=== PATIENT | female | born 1945 | race Caucasian/White ===

== ENCOUNTER 2018-02-12 23:54 | Inpatient (IN) | payer MEDICARE ==
[~2018-02-12] VITALS: Ht 165.1 cm; Wt 87.1 kg
[~2018-02-12 23:54] MED LIST: AMLODIPINE BESYL5 MG PO; AZITHROMYCIN250 MG PO; AZULFIDINE500 M1 PO; BENAZEPRIL HCL10 MG PO; BENAZEPRIL PO; CEFDINIR300 MG PO; CEFTIN250 MG PO; ELIQUIS PO; LORATADINE10 MG PO; MELOXICAM7.5 MG PO; NAPROXEN500 MG; PRAVASTATIN PO; PREDNISONE10 MG PO; PREDNISONE20 MG PO; SINGULAIR10 MG PO; ULTRAM50 MG; WARFARIN SODIU2.5 MG PO; WARFARIN SODIUM5 MG PO
[2018-02-13] VITALS (15 sets, daily range): BP systolic 118–160; BP diastolic 45–73
[2018-02-13 00:57] LABS: BASOPHILS # (AUTO) 0.1 (0.0-0.1); BASOPHILS % 0.4 % (0.0-1.0); HEMATOCRIT 42.5 % (34.2-44.1); HEMOGLOBIN 13.7 g/dL (12.0-16.0); LYMPHOCYTES # (AUTO) 1.5 (1.0-3.2); LYMPHOCYTES % 4.7 % (18.0-39.1); MEAN CORPUSCULAR HEMOGLOBIN 31.5 pg (28-32); MEAN CORPUSCULAR HGB CONC 32.2 g/dL (31-35); MEAN CORPUSCULAR VOLUME 97.7 fL (81-99); MONOCYTES # (AUTO) 2.4 (0.2-0.8); MONOCYTES % 7.5 % (4.4-11.3); NEUTROPHILS # (AUTO) 27.9 (2.1-6.9); NEUTROPHILS % 86.4 % (38.7-80.0); PLATELET COUNT 410 x10e3/uL (140-360); RED BLOOD COUNT 4.35 x10e6/uL (3.6-5.1); RED CELL DISTRIBUTION WIDTH 14.1 % (11.7-14.4)
[2018-02-13 01:10] LABS: INR 1.74; PROTHROMBIN TIME 19.1 seconds (11.9-14.5)
[2018-02-13 01:11] LABS: PARTIAL THROMBOPLASTIN TIME 45.3 seconds (23.8-35.5)
--- NOTE | 2018-02-13 01:12 | Diagnostic Imaging Report ---
EXAM: CHEST SINGLE (PORTABLE), AP 1 view INDICATION: Shortness of breath, cough COMPARISON: PA and lateral view of the chest April 08, 2017 FINDINGS: LINES/TUBES: None LUNGS: Vascular congestion and bibasilar atelectasis. Biapical scarring. PLEURA: No effusions or pneumothorax. HEART AND MEDIASTINUM: The heart is within normal size limits. Prominence of the central pulmonary vessels. BONES AND SOFT TISSUES: No acute findings. IMPRESSION: Vascular congestion and bibasilar atelectasis. Signed by: Dr. Kristi May M.D. on 02/13/2018 1:08 AM
[2018-02-13 01:18] LABS: ALBUMIN 2.9 g/dL (3.5-5.0); ALBUMIN/GLOBULIN RATIO 0.6 (0.8-2.0); ANION GAP 15.6 mmol/L (8-16); CALCIUM 9.7 mg/dL (8.4-10.2); CREATININE, SERUM 1.12 mg/dL (0.57-1.11); MAGNESIUM 1.6 MG/DL (1.3-2.1); POTASSIUM 3.6 mmol/L (3.5-5.1)
[2018-02-13 02:12] LABS: CREATINE KINASE MB 2.9 ng/mL (0-5.0)
[2018-02-13] MEDS ORDERED: SODIUM CHLORIDE 0.9% 500ML 500 ML ONE (02:13)
[2018-02-13] MEDS ORDERED: SODIUM CHLORIDE 0.9% 500ML 500 ML IV ONE ×2 (02:15→07:00)
[2018-02-13 02:24] LABS: BAND NEUTROPHILS % (MANUAL) 2 %; LYMPHOCYTES % (MANUAL) 9 % (19-48); MONOCYTES % (MANUAL) 10 % (3.4-9.0); NEUTROPHILS % (MANUAL) 79 % (40-74); PLATELET ESTIMATE SLIGHTLY INCREASED; PLATELET MORPHOLOGY COMMENT FEW EDTA CLUMPING; RBC MORPHOLOGY COMMENT NORMAL
[2018-02-13] MEDS: DOXYCYCLINE 100MG/NS 100ML 100 ML IV SCH ×2 (02:45→13:27)
[2018-02-13] MEDS: LEVOFLOXACIN 500MG/D5W 100ML 100 ML IV SCH ×2 (02:45→08:35)
[2018-02-13 03:04] LABS: ABG PH 7.31 (7.31-7.41)
[2018-02-13] MEDS ORDERED: SODIUM CHLORIDE 0.9% 1000ML 1,000 ML IV SCH (03:14)
--- OUTSIDE RECORDS SUMMARY | 2018-02-13 03:24 | XMS REPORT ---
Author [facility] Address Unknown Phone Unavailable Care Team Providers Care Cotton Chopper Name Role Phone BJORN STEPHENSON Unavailable Unavailable Problems This patient has no known problems. Allergies, Adverse Reactions, Alerts This patient has no known allergies or adverse reactions. Medications This patient has no known medications. Results Test Description Test Time Test Comments Text Results Atomic Results Result Comments CHEST SINGLE (PORTABLE) [place] [address] Patient Name: JENNA VAUGHN MR #: [id number] : 1945 Age/Sex: 72/F Req #: [id number] Adm Physician: Ordered by: BJORN STEPHENSON MD Report #: [id number] Location: ER Room/Bed: Procedure: [id number] DX/CHEST SINGLE (PORTABLE) Exam Date: 02/13/18 Exam Time: 56 REPORT STATUS: Signed EXAM: CHEST SINGLE (PORTABLE), AP 1 view INDICATION: Shortness of breath, cough COMPARISON: PA and lateral view of the chest April 08, 2017 FINDINGS: LINES /TUBES: None LUNGS: Vascular congestion and bibasilar atelectasis. Biapical scarring. PLEURA: No effusions or pneumothorax. HEART AND MEDIASTINUM: The heart is within normal size limits. Prominence of the central pulmonary vessels. BONES AND SOFT TISSUES: No acute findings. IMPRESSION: Vascular congestion and bibasilar atelectasis. Signed by: Dr. Davon Harding M.D. on 02/13/2018 1:08 AM Dictated By: DAVON HARDING MD 7 Transcribed By: SPARKLE on 02/13/18107 COPY TO: BJORN STEPHENSON MD
[2018-02-13] MEDS ORDERED: ACETAMINOPHEN 1000 MG/100 ML IV PRN (05:15)
[2018-02-13] MEDS: METHYLPREDNISOLONE SOD SUCC 125 MG/2ML VIAL IV SCH ×2 (05:48→13:27)
[2018-02-13 05:52] LABS: BILIRUBIN,URINE NEGATIVE (NEGATIVE); KETONES,URINE NEGATIVE (NEGATIVE); LEUKOCYTE ESTERASE ,URINE NEGATIVE (NEGATIVE); NITRITE,URINE NEGATIVE (NEGATIVE); URINE UROBILINOGEN 1 mg/dL (0.2 - 1)
[2018-02-13 06:00] LABS: CLARITY,URINE SL CLOUDY (CLEAR); COLOR,URINE YELLOW (YELLOW); PROTEIN,URINE DIPSTICK 2+ (NEGATIVE)
[2018-02-13 06:12] LABS: AMORPHOUS SEDIMENT,URINE RARE (FEW)
[2018-02-13] MEDS: IPRATROPIUM BROMIDE 0.02% 2.5 ML NEB NEB SCH ×3 (07:00→19:15)
[2018-02-13] MEDS: ALBUTEROL SULF 0.083% NEB SOLN 3 ML NEB NEB SCH ×4 (07:00→19:15)
[2018-02-13 08:03] LABS: ABG PH 7.34 (7.31-7.41)
[2018-02-13 08:04] LABS: ABG HCO3 35 mmol/L (23-28); ABG PCO2 65 mmHg (41-51); ABG PO2 65 mmHg (80-105)
[2018-02-13 08:44] LABS: CREATINE KINASE MB 1.6 ng/mL (0-5.0)
[2018-02-13] MEDS ORDERED: FUROSEMIDE INJ 10 MG/ML 2 ML VIAL IV ONE (11:15)
[2018-02-13 11:29] LABS: BASOPHILS # (AUTO) 0.1 (0.0-0.1); BASOPHILS % 0.3 % (0.0-1.0); HEMATOCRIT 36.8 % (34.2-44.1); HEMOGLOBIN 12.1 g/dL (12.0-16.0); LYMPHOCYTES # (AUTO) 2.4 (1.0-3.2); LYMPHOCYTES % 8.3 % (18.0-39.1); MEAN CORPUSCULAR HEMOGLOBIN 31.9 pg (28-32); MEAN CORPUSCULAR HGB CONC 32.9 g/dL (31-35); MEAN CORPUSCULAR VOLUME 97.1 fL (81-99); MONOCYTES # (AUTO) 2.1 (0.2-0.8); MONOCYTES % 7.1 % (4.4-11.3); NEUTROPHILS # (AUTO) 24.4 (2.1-6.9); NEUTROPHILS % 83.8 % (38.7-80.0); PLATELET COUNT 374 x10e3/uL (140-360); RED BLOOD COUNT 3.79 x10e6/uL (3.6-5.1); RED CELL DISTRIBUTION WIDTH 14.1 % (11.7-14.4)
[2018-02-13] MEDS: CEFEPIME HCL 2 GM VIAL IV SCH (14:49)
--- NOTE | 2018-02-13 15:03 | Consultation ---
DATE OF CONSULTATION: February 13, 2018 INFECTIOUS DISEASE CONSULTATION LOCATION: In the emergency room of [facility]. REASON FOR CONSULTATION: To evaluate and assist in managing a patient with leukocytosis. Information is gathered from the current medical record. I interviewed the patient at the bedside. She is a 72-year-old woman with a history of hypertension. She has had a left total knee replacement in the past. She has had 3 previous back surgeries. Two weeks ago, she had another back surgery. She presented to the emergency room with complaints of increasing shortness of breath as well as cough productive sometimes of a yellowish sputum, sometimes greenish sputum. She is not sure whether she had fevers. She denies any nausea, vomiting or diarrhea. She has no genitourinary complaints. She is noted at presentation with a temperature of 100.5 degrees Fahrenheit, a pulse rate of 109, a respiratory rate of 22 and blood pressure 136/52. She had a CBC done which showed a white count of 32.3 thousand with 86% neutrophils. A repeat CBC showed a white count of 29.1 thousand. Her creatinine is found to be 1.1. She has had blood and urine cultures ordered. A chest x-ray is reported to have pulmonary vascular congestion. The patient reports that prior to her back surgery there was swelling of her left knee. An ultrasound had shown no deep venous thrombosis. She denies any history of treatment with steroids since her back surgery. She gives no history of a bone marrow abnormality. She has no diarrhea. She has never been told before that she had a persistent increased white count. Her medical history is as reported above. There is no report of kidney disease, liver disease, myocardial infarction or CVA. SOCIAL HISTORY: She smokes. She denies alcohol and other forms of recreational drug abuse. FAMILY HISTORY: Positive for hypertension. SHE HAS NO KNOWN ALLERGIES. She has been ordered to receive doxycycline and levofloxacin. The rest of her medications are per medication administration report. REVIEW OF SYSTEMS: The patient is alert. Her sensorium is clear. Currently on BiPAP. No acute respiratory distress. No complaint of headache or neck stiffness. No sore throat. No visual or auditory complaints. She has cough, sometimes with yellowish sputum, sometimes greenish or grayish sputum. No complaint of chest pain or abdominal pain. No nausea, vomiting or diarrhea. No frequency or dysuria. No pruritus or rash. There is pain in her back. She has not noticed any drainage from her back surgery site. PHYSICAL EXAMINATION GENERAL: She is an adult woman. She is alert, responsive, coherent. She appears ill but nontoxic. VITAL SIGNS: Maximum temperature was at presentation of 100.5 degrees Fahrenheit. She is hemodynamically stable. HEENT: There is no gross pallor, no obvious icterus, no oropharyngeal lesions. NECK: Supple. CHEST: Symmetric. LUNGS: Breath sounds are coarse in the lung cordero. HEART: Sounds are regular without a significant murmur. ABDOMEN: Full, soft. Between are present. There is a midline scar of previous surgeries. EXTREMITIES: There is mild pitting edema of the left lower extremity. No acute erythema of the extremities otherwise. BACK: Surgical incision site is clean and healing. There is no acute erythema or drainage. Her creatinine 1.1. Liver function tests unremarkable. Blood glucose 151. Her white count 29.1 to 32.3. Hemoglobin 12.1. Platelet count 374 to 410. Differential on the white count has been reported above. Cultures are pending. Chest x-ray is as reported above. Venous Doppler of the left lower extremity, report is not available. IMPRESSION: This 72-year-old woman had back surgery about 2 weeks ago. She has significant leukocytosis of unclear etiology. Differential diagnosis includes evolving surgical site infection. I would be concerned about underlying abscess or hematoma. Other considerations in the differential diagnosis would include Clostridium difficile colitis, urinary tract infection and pneumonia. A bone marrow abnormality seems unlikely. The patient states she has not been on any steroids since her back surgery until she arrived in the hospital and was started on Solu-Medrol. I suggest we change her antibiotic treatment to a combination of vancomycin and cefepime. Will get a CT scan of the lumbosacral spine for further evaluation. Follow up on blood and urine cultures. Check her stool for C. diff. Send sputum for Gram stain and culture and monitor clinical response to treatment. I have discussed the findings and concerns and treatment with the patient at the bedside. I will discuss the patient with the primary physician, whom I thank for the consult and opportunity to participate in the patient's care. I have discussed the patient with the emergency room staff. TOTAL CARE TIME: 40 minutes. Job#: [id number] EV
--- NOTE | 2018-02-13 15:30 | Consultation ---
DATE OF CONSULTATION: February 13, 2018 ADDENDUM: The patient also has a history of COPD. In light of the increasing cough with productive sputum, pneumonia should be considered in the differential diagnosis of her leukocytosis. She did present with signs and symptoms consistent with sepsis including a white count of 32.3 thousand, a temperature of 100.5, a pulse rate greater than 100, and respiratory rate greater than 20. The constellation of these findings is consistent with sepsis. Differential diagnosis has been outlined above. Plans for evaluation and treatment are as outlined above. Again, I have discussed all of this with the patient at the bedside. I have discussed with the emergency room staff. I will discuss with the primary physician. Job#: [id number] TANMAY
[2018-02-13] MEDS ORDERED: VANCOMYCIN 1GM/NS 250 ML 250 ML ONE (16:15)
[2018-02-13] MEDS: VANCOMYCIN HCL 1.25 GM in SODIUM CHLORIDE 0.9% 250ML 250 ML IV SCH (16:25)
--- NOTE | 2018-02-13 16:43 | History and Physical ---
CHIEF COMPLAINT: Dyspnea and leukocytosis. HISTORY OF PRESENT ILLNESS: The patient is a 72-year-old woman. She has a history of chronic obstructive pulmonary disease and pulmonary emboli. She had a pulmonary embolism at [facility] in 2013 and a DVT at [facility] later that year. She has been on warfarin on a chronic basis. She recently went for lumbar surgery with Dr. Troy Finley in [place]. She had a lumbar laminectomy and apparently did well. She was switched to Eliquis during the perioperative period. She went back to see Dr. Finley 2 days ago and had no problems. Her raghav were removed. Last night, she started having congestion and difficulty breathing. She also noticed a temperature. She came to the emergency department and was found to have an elevated white blood cell count along with some congestion. She was started on antibiotics and steroids. She had some improvement, but still reports some dyspnea. PAST SURGICAL HISTORY 1. Status post right knee replacement. 2. Status post back surgery in 2007. 3. Repeat lumbar laminectomy 2 weeks ago in [place]. SOCIAL HISTORY: The patient is a smoker. She is not an active drinker. FAMILY HISTORY: Significant for strokes. Her father also had cancer. REVIEW OF SYSTEMS: She did note some fevers at home. She did not complain of headache or neck pain. She did have some congestion and cough. She did not have any chest pain. She does note some worsening dyspnea. She has no abdominal pain. She does not complain of any leg swelling or pain. PHYSICAL EXAMINATION VITALS: The patient is afebrile. The blood pressure is 139/60. Saturation is 96%. Pulse is 89. HEENT: No facial swelling or erythema. The nasal mucosa is normal. The oropharynx is normal. LYMPHATIC: No submandibular, cervical or supraclavicular adenopathy. NECK: No JVD or thyromegaly. There is no nuchal rigidity. CARDIAC: Regular rate and rhythm with a normal S1 and S2. There are no murmurs or rubs. LUNGS: Auscultation of the lungs reveals rhonchorous breath sounds bilaterally. There is no wheezing. ABDOMEN: Soft and nontender. There is no rebound or guarding. EXTREMITIES: No leg edema or calf tenderness. There is no cyanosis or clubbing. SKIN: No rashes. NEUROLOGIC: No focal abnormalities. Chest x-ray shows some atelectasis and cephalization suggestive of heart failure. LABORATORY DATA: White blood cell count is 29, hemoglobin 12.1, platelet count 374. The [id number] ratio is 16:1.1. IMPRESSION 1. Chronic obstructive pulmonary disease with acute exacerbation. 2. History of prior pulmonary embolism. 3. Leukocytosis and recent back surgery. PLAN 1. Infectious disease has seen the patient and ordered a CT scan of the back. We are awaiting these results. 2. The patient will need a V/Q scan to rule out recurrent pulmonary embolism. We cannot order another contrast study with her current renal function. 3. Depending on the results of the V/Q scan and the CT scan, we may need to start heparin. 4. Continue current antibiotics. 5. Solu-Medrol at 1 mg per kg twice daily. 6. Bronchodilators. Job#: [id number]
--- NOTE | 2018-02-13 16:44 | Consultation ---
Job#: [id number] TANMAY ARAIZA
[2018-02-13] MEDS ORDERED: WARFARIN SOD 5 MG TAB PO SCH (17:00)
--- NOTE | 2018-02-13 17:13 | Diagnostic Imaging Report ---
Exam: Lumbar spine CT without IV contrast History: Leukocytosis, rule out abscess or hematoma two weeks Comparison studies: None Technique: Axial images were obtained through the lumbar spine. Coronal and sagittal images reconstructed from the axial data. Intravenous contrast: None Findings: Number of non-rib bearing vertebral bodies: 5 Alignment: Normal lumbar lordosis. Lumbar curvature convex to the left with apex at L2-L3. Approximately 2 mm degenerative retrolisthesis of L2 on L3. Soft tissues and paraspinal muscles: There are postsurgical changes in the dorsal lumbar soft tissues from L2-L3 through L5-S1 with ill-defined soft tissue and fluid within within the dorsal left paramedian soft tissues along the operative bed with small foci of gas. No organized rim-enhancing fluid collection though evaluation is somewhat limited by CT. Nonspecific reactive changes extend along the epidural space into the left subarticular recess ease and foramina on the left at L4-L5 and L5-S1. Sacroiliac joints: Moderate degenerative changes along the joints inferiorly with periarticular sclerosis. Vertebrae: No fractures, infection or neoplasm. Postsurgical changes: There are decompressive hemilaminectomies on the left from L2-L3 to L5-S1. See soft tissues, as above Degenerative changes: L1-L2: Moderately degenerated disc on the right along the concavity of curvature. Disc bulge with right foraminal disc osteophyte complex and facet arthrosis with moderate right foraminal stenosis and mild left foraminal stenosis. No significant canal stenosis L2-L3: Severely degenerated disc on the right along the concavity of curvature. Minimal retrolisthesis of L2 on L3 with associated disc osteophyte complex asymmetric to the right and facet arthrosis with moderate bilateral foraminal stenosis. No significant canal stenosis. L3-L4: Mildly degenerated disc. Minimal retrolisthesis of L3 on L4 with associated uncovered disc/disc bulge and bilateral facet arthrosis with moderate bilateral foraminal stenosis. Canal is decompressed by left pneumonectomy laminectomy. L4-L5: Moderately degenerated disc on the left due to curvature. Disc bulge and facet arthrosis result in severe left and mild right foraminal stenosis. Canal is been surgically decompressed by left pneumonectomy laminectomy. L5-S1: No abnormalities. Disc bulge with right foraminal disc osteophyte complex and facet arthrosis with moderate left and mild right foraminal stenosis. Canal has been decompressed by laminotomy. Incidental findings: Atelectasis or consolidation at the left lung base. Bilateral adrenal thickening. 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 IMPRESSION: 1. Postsurgical changes with hemilaminectomies on the left from L2-L3 through L5-S1. Nonspecific fluid and reactive changes in the left paramedian dorsal soft tissues along the operative site. Cannot adequately differentiate phlegmon from reactive postoperative changes and seroma in the context of recent surgery. No definite organized rim-enhancing fluid collection/abscess identified by CT. 2. Levocurvature with apex at L2. 3. Degenerative changes with multilevel disc degeneration, facet arthrosis and varying degrees of mild to severe foraminal stenosis as described. 4. 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 Recommend renal/pelvic ultrasound to further evaluate if not recently performed. 5. Partially imaged atelectasis or consolidation at the left lung base. Signed by: Dr. Heath Ford M.D. on 02/13/2018 5:10 PM
--- NOTE | 2018-02-13 18:04 | Diagnostic Imaging Report ---
PROCEDURE:US RETROPERITONEAL ( KIDNEY ). COMPARISON:Patients [facility], CT, CT CHEST W, 04/07/2017, 9:22. INDICATIONS:DILATED PELVIC KIDNEY TECHNIQUE: Silvestre-scale and color sonographic images of the bilateral kidneys and bladder where obtained in transverse and longitudinal planes. FINDINGS: Exam limited by patient's large body habitus. RIGHT KIDNEY: 8.3 cm, cortex 2.2 cm Cysts: None Solid masses: None Stones: None Hydronephrosis: None Echogenicity: Normal LEFT KIDNEY: Not visualized. No pelvic kidneys are identified. Bladder: Mostly decompressed with Smith catheter in place. CONCLUSION: 1. Right kidney is smaller than normal. Normal cortical echogenicity. No hydronephrosis, stones, or solid masses. 2. The left kidney is not visualized. Jethro Ribeiro M.D. Dictated by: Jethro Ribeiro M.D. on 02/13/2018 at 18:04 Electronically approved by: Jethro Ribeiro M.D. on 02/13/2018 at 18:04
[2018-02-13 19:06] LABS: CREATINE KINASE MB 1.7 ng/mL (0-5.0)
[2018-02-13] MEDS ORDERED: IOPAMIDOL 370 MG/ML 200 ML INFUS..BTL INJ ONE (20:04)
[2018-02-13] MEDS ORDERED: SODIUM CHLORIDE 0.9% 50ML 50 ML ONE (20:04)
[2018-02-13] MEDS: TRAMADOL HCL 50 MG TAB PO PRN (20:27)
[2018-02-13] MEDS: PRAVASTATIN 20 MG TAB PO SCH ×2 (21:00→21:23)
[2018-02-13] MEDS ORDERED: METHYLPREDNISOLONE SOD SUCC 125 MG/2ML VIAL IV SCH (21:00)
--- NOTE | 2018-02-13 21:37 | Diagnostic Imaging Report ---
EXAM: VENTILATION PERFUSION LUNG SCAN INDICATION: 72 F in ICU with COPD exacerbation; history of previous PE. Back surgery 2 weeks ago. COMPARISON: Chest radiograph 02/13/2018 DISCUSSION: Xenon-133 gas 17 mCi was administered via inhalation. Dynamic images of the lungs in the posterior projection were obtained through single breath and washout phases. Distribution of tracer activity is irregular throughout the lungs. Ventilation is markedly decreased in the LLL relatively to the other lobes. Washout is diffusely delayed with air trapping in the right lung base. Perfusion images of the lungs in multiple projections were obtained following intravenous administration of 6 mCi of Tc-99m MAA. Distribution of tracer is mildly irregular throughout the lungs. Some soft tissue attenuation effects are present on the lateral images, possible related to breast tissue. There are no segmental perfusion defects of any size. The contours of the lungs are well demarcated. The cardiac silhouette is unremarkable. IMPRESSION: 1. Scan findings represent a LOW probability for acute pulmonary embolic disease based on the PIOPED II criteria. 2. Scan findings are compatible with diffuse parenchymal and/or obstructive lung disease. Suspect pulmonary edema with obstructive lung disease. 3. Decreased ventilation in the LLL without associated decrease in perfusion suggests that some recent onset airway obstruction is present. Defect in ventilation in the LLL does improve with equilibrium so is not complete obstruction. Signed by: Dr. Marlys Oakley M.D. on 02/13/2018 9:33 PM
[2018-02-14] VITALS (36 sets, daily range): BP systolic 100–166; BP diastolic 48–84
[2018-02-14] MEDS: CEFEPIME HCL 2 GM VIAL IV SCH ×2 (03:10→14:39)
[2018-02-14] MEDS: ALBUTEROL SULF 0.083% NEB SOLN 3 ML NEB NEB SCH ×6 (03:30→19:15)
[2018-02-14 06:02] LABS: BASOPHILS # (AUTO) 0.1 (0.0-0.1); BASOPHILS % 0.3 % (0.0-1.0); HEMATOCRIT 43.7 % (34.2-44.1); HEMOGLOBIN 14.2 g/dL (12.0-16.0); LYMPHOCYTES # (AUTO) 1.4 (1.0-3.2); LYMPHOCYTES % 7.9 % (18.0-39.1); MEAN CORPUSCULAR HEMOGLOBIN 31.3 pg (28-32); MEAN CORPUSCULAR HGB CONC 32.5 g/dL (31-35); MEAN CORPUSCULAR VOLUME 96.5 fL (81-99); MONOCYTES # (AUTO) 0.3 (0.2-0.8); MONOCYTES % 1.8 % (4.4-11.3); NEUTROPHILS # (AUTO) 15.8 (2.1-6.9); NEUTROPHILS % 89.4 % (38.7-80.0); PLATELET COUNT 424 x10e3/uL (140-360); RED BLOOD COUNT 4.53 x10e6/uL (3.6-5.1); RED CELL DISTRIBUTION WIDTH 14.1 % (11.7-14.4)
[2018-02-14 06:21] LABS: INR 2.58
--- NOTE | 2018-02-14 06:23 | Diagnostic Imaging Report ---
EXAM: CHEST SINGLE (PORTABLE), AP 1 view INDICATION: Pneumonia COMPARISON: AP view of the chest February 13, 2018 FINDINGS: LINES/TUBES: None LUNGS: Vascular calcification, bibasilar atelectasis and biapical scarring. PLEURA: No effusions or pneumothorax. HEART AND MEDIASTINUM: Stable appearance. BONES AND SOFT TISSUES: No acute findings. IMPRESSION: Increasing atelectasis in the left lung base, possible pneumonia. Signed by: Dr. Kristi May M.D. on 02/14/2018 6:20 AM
[2018-02-14 06:43] LABS: ALANINE AMINOTRANSFERASE 29 IU/L (0-55); ALBUMIN 2.5 g/dL (3.5-5.0); ALBUMIN/GLOBULIN RATIO 0.5 (0.8-2.0); ALKALINE PHOSPHATASE 175 IU/L (40-150); ANION GAP 14.9 mmol/L (8-16); BLOOD UREA NITROGEN 22 mg/dL (7-26); BUN/CREATININE RATIO 24 (6-25); CARBON DIOXIDE 32 mmol/L (22-29); CHLORIDE 98 mmol/L (98-107); EST GLOMERULAR FILTRATION RATE > 60 ML/MIN (60-); GLUCOSE 151 mg/dL (74-118); POTASSIUM 3.9 mmol/L (3.5-5.1); SODIUM 141 mmol/L (136-145)
[2018-02-14] MEDS: IPRATROPIUM BROMIDE 0.02% 2.5 ML NEB NEB SCH ×4 (07:36→19:15)
[2018-02-14] MEDS ORDERED: PRAVASTATIN 20 MG PO SCH (09:00)
[2018-02-14] MEDS ORDERED: WARFARIN SOD 2.5 MG TAB PO SCH (09:00)
[2018-02-14] MEDS ORDERED: METHYLPREDNISOLONE SOD SUCC 125 MG/2ML VIAL IV SCH (09:00)
[2018-02-14] MEDS: METHYLPREDNISOLONE SOD SUCC 40 MG/ML VIAL IV SCH ×2 (09:00→21:44)
[2018-02-14] MEDS: VANCOMYCIN HCL 1.25 GM in SODIUM CHLORIDE 0.9% 250ML 250 ML IV SCH (14:30)
[2018-02-14] MEDS ORDERED: SODIUM CHLORIDE 0.9% 250ML 250 ML ONE (15:32)
[2018-02-14] MEDS ORDERED: WARFARIN SOD 5 MG TAB PO SCH (17:00)
[2018-02-14] MEDS: WARFARIN SOD 3 MG TAB PO SCH (17:00)
[2018-02-14] MEDS: ONDANSETRON HCL INJ 2 MG/ML VIAL IV PRN (20:23)
[2018-02-14] MEDS: SIMVASTATIN 20 MG TAB PO SCH (21:00)
[2018-02-15] VITALS (25 sets, daily range): BP systolic 120–171; BP diastolic 59–94
[2018-02-15] MEDS: ALBUTEROL SULF 0.083% NEB SOLN 3 ML NEB NEB SCH ×7 (03:00→23:00)
[2018-02-15] MEDS: CEFEPIME HCL 2 GM VIAL IV SCH ×2 (03:25→15:04)
[2018-02-15] MEDS: TRAMADOL HCL 50 MG TAB PO PRN (04:15)
[2018-02-15] MEDS: ONDANSETRON HCL INJ 2 MG/ML VIAL IV PRN (04:15)
[2018-02-15 06:08] LABS: BASOPHILS # (AUTO) 0.1 (0.0-0.1); BASOPHILS % 0.5 % (0.0-1.0); HEMATOCRIT 39.7 % (34.2-44.1); HEMOGLOBIN 13.3 g/dL (12.0-16.0); LYMPHOCYTES # (AUTO) 1.8 (1.0-3.2); MEAN CORPUSCULAR HEMOGLOBIN 31.2 pg (28-32); MEAN CORPUSCULAR HGB CONC 33.5 g/dL (31-35); MEAN CORPUSCULAR VOLUME 93.2 fL (81-99); MONOCYTES # (AUTO) 0.9 (0.2-0.8); MONOCYTES % 4.8 % (4.4-11.3); NEUTROPHILS # (AUTO) 14.7 (2.1-6.9); NEUTROPHILS % 83.4 % (38.7-80.0); PLATELET COUNT 516 x10e3/uL (140-360); RED BLOOD COUNT 4.26 x10e6/uL (3.6-5.1); RED CELL DISTRIBUTION WIDTH 14.1 % (11.7-14.4)
[2018-02-15 06:18] LABS: INR 2.62; PROTHROMBIN TIME 26.3 seconds (11.9-14.5)
[2018-02-15] MEDS: IPRATROPIUM BROMIDE 0.02% 2.5 ML NEB NEB SCH ×4 (07:00→18:40)
[2018-02-15] MEDS: METHYLPREDNISOLONE SOD SUCC 40 MG/ML VIAL IV SCH ×2 (08:42→20:20)
[2018-02-15] MEDS ORDERED: VANCOMYCIN HCL 1.25 GM in SODIUM CHLORIDE 0.9% 250ML 300 ML IV SCH (11:30)
[2018-02-15] MEDS ORDERED: SODIUM CHLORIDE 0.9% 250ML 250 ML ONE (14:19)
[2018-02-15] MEDS: VANCOMYCIN HCL 1.25 GM in SODIUM CHLORIDE 0.9% 250ML 300 ML IV SCH (14:50)
--- NOTE | 2018-02-15 15:53 | Progress Note ---
DATE: February 14, 2018 SUBJECTIVE: The patient is resting comfortably on oxygen by nasal cannula. No respiratory distress currently. She coughs intermittently. No dyspnea at rest. No chest pain. No nausea. No abdominal pain. No diarrhea. No genitourinary complaints. OBJECTIVE VITAL SIGNS: In the previous 24 hours, her maximum temperature was up to 100.5 degrees Fahrenheit. She is hemodynamically stable. HEENT: There is no gross pallor. No obvious icterus. No oropharyngeal lesions. NECK: Supple. CHEST: Symmetric. Breath sounds are coarse in the lung cordero. HEART: Sounds are regular without any murmurs. ABDOMEN: Soft. Bowel sounds are present. EXTREMITIES: No acute erythema in all 4 extremities. BACK: Her back incision site is fairly clean. LABORATORY DATA: Her white count is down to 17.7. Her creatinine is down to 0.9. There are no significant positive culture reports. IMPRESSION AND RECOMMENDATIONS: She is on treatment for sepsis with probable chronic obstructive pulmonary disease exacerbation and pneumonia. I am concerned about evolving infection at her surgical site in the back. Patient had recent laminectomies. I suggest continued current antimicrobial therapy. Follow up on her cultures. Continue to monitor clinical response to treatment. Job#: [id number] JENNIFER
--- NOTE | 2018-02-15 16:05 | Progress Note ---
DATE: February 15, 2018 SUBJECTIVE: The patient is alert and responsive. She states she vomited 8 times in the previous 24 hours. Currently, she is in no acute distress. She has no complaint of nausea or diarrhea. No abdominal pain. She coughs occasionally. No dyspnea at rest. No other systemic complaints reported. OBJECTIVE VITAL SIGNS: In the past 24 hours, temperatures have ranged from 98.1 to 99.3 degrees Fahrenheit. She is hemodynamically stable. HEENT: There is no pallor. No icterus. No oropharyngeal lesions. NECK: Supple. CHEST: Symmetric. Breath sounds are coarse in the lung cordero. HEART: Sounds are regular without any murmurs. ABDOMEN: Full, soft, and nontender with normal bowel sounds. EXTREMITIES: No acute erythema in all 4 extremities. BACK: Her back wound is without drainage or worsening erythema. LABORATORY DATA: Her white count dropped from 32.3 to 17.6. Her creatinine is down to 0.9. Sputum culture from February 15 is pending. Urine culture is negative from February 13. Blood cultures are negative from February 13. DIAGNOSTIC DATA: CT scan of the lumbar spine reports postsurgical changes with hemilaminectomies on the left from L2-L3 and L5-S1. There are no specific fluid and reactive changes in the left paramedian, dorsal soft tissues along the operative site. Difficult to differentiate phlegmon from reactive postoperative changes and seroma. A severely hydronephrotic pelvic kidney with cortical thinning. There is partially images atelectasis or consolidation at the left lung base. IMPRESSION AND RECOMMENDATIONS: She is on treatment for sepsis with probable pneumonia and chronic obstructive pulmonary disease exacerbation. Difficult to tell whether she has a seroma or abscess at the site of recent laminectomy. Her current leukocytosis may be in part due to steroid therapy. I suggest continued current antimicrobial therapy. Monitor temperature, CBC, and renal function. Continue to monitor clinical response to treatment. Job#: [id number] JENNIFER
[2018-02-15] MEDS: FAMOTIDINE 20 MG TAB PO SCH (16:30)
[2018-02-15] MEDS: COLLAGENASE OINTMENT 30 GM TUBE TP SCH (18:17)
[2018-02-15] MEDS: WARFARIN SOD 3 MG TAB PO SCH (18:17)
[2018-02-15] MEDS: SIMVASTATIN 20 MG TAB PO SCH (20:20)
[2018-02-16] VITALS (7 sets, daily range): BP systolic 157–169; BP diastolic 68–72
[2018-02-16] MEDS: IPRATROPIUM BROMIDE 0.02% 2.5 ML NEB NEB SCH ×4 (01:00→19:30)
[2018-02-16] MEDS: CEFEPIME HCL 2 GM VIAL IV SCH ×2 (02:09→15:31)
[2018-02-16] MEDS: ALBUTEROL SULF 0.083% NEB SOLN 3 ML NEB NEB SCH ×6 (03:00→23:35)
[2018-02-16 07:26] LABS: BASOPHILS % 0.3 % (0.0-1.0); HEMATOCRIT 38.8 % (34.2-44.1); HEMOGLOBIN 12.8 g/dL (12.0-16.0); LYMPHOCYTES # (AUTO) 2.6 (1.0-3.2); LYMPHOCYTES % 17.1 % (18.0-39.1); MEAN CORPUSCULAR HEMOGLOBIN 30.7 pg (28-32); MONOCYTES % 6.8 % (4.4-11.3); NEUTROPHILS # (AUTO) 11.5 (2.1-6.9); NEUTROPHILS % 74.5 % (38.7-80.0); PLATELET COUNT 516 x10e3/uL (140-360); RED BLOOD COUNT 4.17 x10e6/uL (3.6-5.1); RED CELL DISTRIBUTION WIDTH 14.4 % (11.7-14.4)
[2018-02-16] MEDS: FAMOTIDINE 20 MG TAB PO SCH ×2 (07:30→16:30)
[2018-02-16 08:04] LABS: INR 3.18; PROTHROMBIN TIME 30.6 seconds (11.9-14.5)
[2018-02-16 08:06] LABS: ALANINE AMINOTRANSFERASE 34 IU/L (0-55); ALBUMIN 2.4 g/dL (3.5-5.0); ALBUMIN/GLOBULIN RATIO 0.6 (0.8-2.0); ALKALINE PHOSPHATASE 141 IU/L (40-150); ANION GAP 13.8 mmol/L (8-16); BLOOD UREA NITROGEN 28 mg/dL (7-26); BUN/CREATININE RATIO 31 (6-25); CALCIUM 9.1 mg/dL (8.4-10.2); CHLORIDE 93 mmol/L (98-107); CREATININE, SERUM 0.89 mg/dL (0.57-1.11); EST GLOMERULAR FILTRATION RATE > 60 ML/MIN (60-); GLUCOSE 122 mg/dL (74-118); POTASSIUM 3.8 mmol/L (3.5-5.1); SODIUM 145 mmol/L (136-145)
[2018-02-16 08:09] LABS: CARBON DIOXIDE 42 mmol/L (22-29)
[2018-02-16] MEDS: METHYLPREDNISOLONE SOD SUCC 40 MG/ML VIAL IV SCH ×2 (09:18→21:00)
[2018-02-16 10:14] LABS: BAND NEUTROPHILS % (MANUAL) 4 %; LYMPHOCYTES % (MANUAL) 22 % (19-48); MONOCYTES % (MANUAL) 5 % (3.4-9.0); NEUTROPHILS % (MANUAL) 69 % (40-74); PLATELET ESTIMATE MODERATELY INCREASED; PLATELET MORPHOLOGY COMMENT NORMAL; RBC MORPHOLOGY COMMENT NORMAL
[2018-02-16] MEDS ORDERED: ACETAZOLAMIDE 250 MG TAB PO ONE (11:00)
[2018-02-16] MEDS: COLLAGENASE OINTMENT 30 GM TUBE TP SCH (15:31)
[2018-02-16] MEDS: VANCOMYCIN HCL 1.25 GM in SODIUM CHLORIDE 0.9% 250ML 300 ML IV SCH (15:31)
--- NOTE | 2018-02-16 19:14 | Progress Note ---
DATE: February 16, 2018 SUBJECTIVE: The patient is in a bedside chair. She coughs intermittently, it sounds productive. No dyspnea at rest. No complaint of chest pain or back pain. No report of nausea, vomiting, or diarrhea. OBJECTIVE: VITAL SIGNS: In the past 24 hours, she had temperatures up to 99.3 degrees Fahrenheit. Her current temperature is 97 degrees. GENERAL: She is hemodynamically stable. HEENT: She has no pallor. No icterus. No oropharyngeal lesions. NECK: Supple. CHEST: Symmetric. Breath sounds are coarse in the lung cordero. HEART: Sounds are regular without any murmur. ABDOMEN: Soft. Bowel sounds are present. EXTREMITIES: There is no acute erythema in all 4 extremities. LABORATORY DATA: Her white count is down to 15.3. Her creatinine is 0.8. A vancomycin trough ordered, report is not yet available. There are no significant positive cultures. IMPRESSION: She is on treatment for sepsis, chronic obstructive pulmonary disease exacerbation with probable pneumonia. She had recent laminectomies. There is fluid around the surgical site according to the CT scan report. It is not clear whether this is a seroma, a hematoma or an abscess. I suggest continue current management. Monitor temperature, CBC, and renal function. Continue to monitor clinical response to treatment. Job#: [id number] MARQUES
[2018-02-16] MEDS: SIMVASTATIN 20 MG TAB PO SCH (21:00)
[2018-02-17] VITALS: BP 161/83
[2018-02-17] MEDS: CEFEPIME HCL 2 GM VIAL IV SCH (02:04)
[2018-02-17] MEDS: IPRATROPIUM BROMIDE 0.02% 2.5 ML NEB NEB SCH ×2 (02:10→07:00)
[2018-02-17] MEDS: ALBUTEROL SULF 0.083% NEB SOLN 3 ML NEB NEB SCH ×2 (02:10→07:00)
[2018-02-17 04:00] VITALS: BP 153/70
[2018-02-17] MEDS: FAMOTIDINE 20 MG TAB PO SCH ×2 (07:50→08:00)
[2018-02-17 07:52] LABS: BASOPHILS % 0.2 % (0.0-1.0); HEMATOCRIT 39.4 % (34.2-44.1); HEMOGLOBIN 12.8 g/dL (12.0-16.0); LYMPHOCYTES # (AUTO) 2.3 (1.0-3.2); LYMPHOCYTES % 16.1 % (18.0-39.1); MEAN CORPUSCULAR HEMOGLOBIN 30.9 pg (28-32); MEAN CORPUSCULAR HGB CONC 32.5 g/dL (31-35); MEAN CORPUSCULAR VOLUME 95.2 fL (81-99); MONOCYTES # (AUTO) 0.8 (0.2-0.8); MONOCYTES % 5.3 % (4.4-11.3); NEUTROPHILS # (AUTO) 11.1 (2.1-6.9); NEUTROPHILS % 77.1 % (38.7-80.0); PLATELET COUNT 495 x10e3/uL (140-360); RED BLOOD COUNT 4.14 x10e6/uL (3.6-5.1); RED CELL DISTRIBUTION WIDTH 14.5 % (11.7-14.4)
[2018-02-17 08:00] VITALS: BP 138/65
[2018-02-17 08:06] LABS: INR 2.42; PROTHROMBIN TIME 24.7 seconds (11.9-14.5)
[2018-02-17] MEDS: METHYLPREDNISOLONE SOD SUCC 40 MG/ML VIAL IV SCH (09:00)
== END 2018-02-17 10:18 | disposition home or self-care (01) | DRG 871 ==
LOC: ER 23:54 → ERHOLD 02-13 03:22 → ICU 02-13 14:51 → MED/SURG3 02-15 13:15
PROVIDERS: ADMIT Internal Medicine Critical Care Medicine; ATTEND Internal Medicine Critical Care Medicine
DX: A41.9 Sepsis, unspecified organism (principal); J18.9 Pneumonia, unspecified organism; J44.0 Chronic obstructive pulmonary disease with (acute) lower respiratory infection; J44.1 Chronic obstructive pulmonary disease with (acute) exacerbation; N13.30 Unspecified hydronephrosis; M96.842 Postprocedural seroma of a musculoskeletal structure following a musculoskeletal system procedure; Z86.711 Personal history of pulmonary embolism; F17.210 Nicotine dependence, cigarettes, uncomplicated; I10 Essential (primary) hypertension
CPT/HCPCS: 36415; 36600; 51700; 71045; 72132; 76770; 78582; 80053; 80202; 81001; 82550; 82553; 82805; 83605; 83735; 83880; 84484; 85025; 85610; 85730; 87040; 87070; 87086; 87205; 87400; 87449; 93005; 93306; 93971; 94640; 94660; 96367; 99284; A9540; A9558; J0692; J1940; J1956; J2405; J2920; J2930; J3370; J7030; J7040; J7050; Q9967

== ENCOUNTER 2018-06-29 22:15 | Observation (INO) | payer MEDICARE ==
[~2018-06-29] VITALS: Ht 165.1 cm; Wt 91.6 kg
[2018-06-29] MEDS ORDERED: ALBUTEROL SULF 0.083% NEB SOLN 3 ML NEB NEB STA (22:23)
[2018-06-29] MEDS ORDERED: IPRATROPIUM BROMIDE 0.02% 2.5 ML NEB NEB ONE (22:30)
[2018-06-29] MEDS ORDERED: METHYLPREDNISOLONE SOD SUCC 125 MG/2ML VIAL IV ONE (22:30)
[2018-06-29 22:43] LABS: BASOPHILS # (AUTO) 0.1 (0.0-0.1); BASOPHILS % 0.4 % (0.0-1.0); EOSINOPHILS # (AUTO) 0.1 (0.0-0.4); EOSINOPHILS % 0.8 % (0.0-6.0); HEMATOCRIT 42.7 % (34.2-44.1); HEMOGLOBIN 13.7 g/dL (12.0-16.0); LYMPHOCYTES # (AUTO) 2.8 (1.0-3.2); LYMPHOCYTES % 24.2 % (18.0-39.1); MEAN CORPUSCULAR HEMOGLOBIN 30.8 pg (28-32); MEAN CORPUSCULAR HGB CONC 32.1 g/dL (31-35); MONOCYTES % 8.8 % (4.4-11.3); NEUTROPHILS # (AUTO) 7.6 (2.1-6.9); NEUTROPHILS % 65.5 % (38.7-80.0); PLATELET COUNT 240 x10e3/uL (140-360); RED BLOOD COUNT 4.45 x10e6/uL (3.6-5.1); RED CELL DISTRIBUTION WIDTH 16.1 % (11.7-14.4)
[2018-06-29 22:53] LABS: INR 1.02; PROTHROMBIN TIME 12.6 seconds (11.9-14.5)
[2018-06-29 22:54] LABS: PARTIAL THROMBOPLASTIN TIME 28.9 seconds (23.8-35.5)
[2018-06-29 23:03] LABS: ALANINE AMINOTRANSFERASE 33 IU/L (0-55); ALBUMIN 3.3 g/dL (3.5-5.0); ALBUMIN/GLOBULIN RATIO 0.8 (0.8-2.0); ALKALINE PHOSPHATASE 115 IU/L (40-150); ANION GAP 13.7 mmol/L (8-16); BLOOD UREA NITROGEN 13 mg/dL (7-26); BUN/CREATININE RATIO 17 (6-25); CARBON DIOXIDE 31 mmol/L (22-29); CHLORIDE 99 mmol/L (98-107); CREATINE KINASE 99 IU/L (29-168); CREATININE, SERUM 0.77 mg/dL (0.57-1.11); EST GLOMERULAR FILTRATION RATE > 60 ML/MIN (60-); GLUCOSE 109 mg/dL (74-118); POTASSIUM 5.7 mmol/L (3.5-5.1); SODIUM 138 mmol/L (136-145)
--- NOTE | 2018-06-29 23:04 | Diagnostic Imaging Report ---
CHEST SINGLE (PORTABLE), 06/29/2018 10:23 PM Technique: CHEST SINGLE (PORTABLE) Comparison: 02/14/2018 Clinical history: Shortness of breath Findings: Limited single portable view of the chest. Stable cardiomediastinal silhouette with enlarged central pulmonary arteries. Hyperinflation with stable right apical pleural thickening. Blunting of the costophrenic angles and minimal bibasilar scarring/atelectasis. Impression: Emphysema without acute abnormality. Signed by: Dr Constanza Encinas MD on 06/29/2018 11:00 PM
[2018-06-30] VITALS (7 sets, daily range): BP systolic 125–171; BP diastolic 57–73
[2018-06-30] MEDS: AZITHROMYCIN 500MG/NS 250 ML 250 ML IV SCH (00:15)
[2018-06-30] MEDS: ALBUTEROL/IPRATROPIUM 3 ML NEB NEB SCH ×6 (02:20→23:00)
[2018-06-30] MEDS ORDERED: METHYLPREDNISOLONE SOD SUCC 40 MG/ML VIAL IV SCH (06:00)
[2018-06-30] MEDS ORDERED: TRAMADOL HCL 50 MG TAB PO PRN (08:00)
[2018-06-30] MEDS ORDERED: ZOLPIDEM TARTRATE 10 MG TAB PO PRN (08:15)
--- NOTE | 2018-06-30 08:41 | History and Physical ---
CHIEF COMPLAINT: Congestion and wheezing. HISTORY OF PRESENT ILLNESS: The patient is a 72-year-old woman. She has a history of COPD and pulmonary emboli. She had a pulmonary embolism in 2013, and a subsequent DVT later that year. She recently had some sclerosis of her veins. She was switched to Eliquis temporarily, and then switched back to Coumadin. Her Coumadin dose was reduced to 2 mg a day. She notes increased congestion and wheezing over several days. She did not have a fever. She had some cough productive of small amounts of phlegm. There was no chest pain. She had no nausea or vomiting. The patient used nebulizers at home with no relief. She came to the emergency department and received some Solu-Medrol along with IV antibiotics. She reports some improvement this morning. PAST SURGICAL HISTORY 1. Status post back surgery in 2007 and again in 2018. 2. Status post knee replacement. SOCIAL HISTORY: The patient recently quit smoking. She is not an active drinker. FAMILY HISTORY: There is a history of strokes. Her father had cancer. ALLERGIES: THERE ARE NO KNOWN DRUG ALLERGIES. REVIEW OF SYSTEMS: She did not have fevers. She did not have headache or neck pain. She had congestion and cough. She did have some wheezing. She denies any chest pain. She has no abdominal pain. She did have some leg swelling, but recently had sclerosis of her veins. PHYSICAL EXAMINATION VITALS: The patient is afebrile. The blood pressure is 171/73 and the pulse is 86. The saturation is 93% on 2 L. The pulse is 86. HEENT: Shows no facial swelling or erythema. The nasal mucosa is normal. The oropharynx is normal. LYMPHATICS: Shows no submandibular, cervical or supraclavicular adenopathy. NECK: Shows no JVD or thyromegaly. There is no JVD. CARDIAC: Reveals a regular rate and rhythm with a normal S1 and S2. There are no murmurs or rubs. LUNGS: Auscultation of the lungs reveals a few expiratory wheezing. ABDOMEN: Soft and nontender. There is no rebound or guarding. EXTREMITIES: Examination of the legs shows no edema. Chest x-ray shows COPD. The white blood cell count is 11.6, hemoglobin 13.7 and the platelet count is 240,000. The BUN to creatinine ratio is normal. The electrolytes are within normal limits. PT is 12.6 and the INR is 1.02. IMPRESSION 1. Chronic obstructive pulmonary disease with acute exacerbation. 2. History of pulmonary thromboembolic disease. PLAN 1. Solu-Medrol. 2. Bronchodilators. 3. Restart and monitor anticoagulation. 4. Tentative discharge tomorrow. Job#: [id number]
[2018-06-30] MEDS ORDERED: WARFARIN SOD 2.5 MG TAB PO SCH ×2 (09:00→17:00)
[2018-06-30] MEDS: MELOXICAM 7.5 MG TAB PO SCH (09:31)
[2018-06-30] MEDS: BENAZEPRIL HCL 10 MG TAB PO SCH (09:31)
[2018-06-30] MEDS: LORATADINE 10 MG TAB PO SCH (09:31)
[2018-06-30] MEDS: AMLODIPINE BESYLATE 5 MG TAB PO SCH (09:31)
[2018-06-30 16:43] LABS: CREATINE KINASE MB 3.3 ng/mL (0-5.0)
[2018-06-30] MEDS ORDERED: SODIUM CHLORIDE 0.9% 250ML 250 ML ONE ×2 (19:49→20:20)
[2018-06-30] MEDS: METHYLPREDNISOLONE SOD SUCC 125 MG/2ML VIAL IV SCH (20:00)
[2018-07-01] VITALS: BP 164/77
[2018-07-01] MEDS: AZITHROMYCIN 500MG/NS 250 ML 250 ML IV SCH (00:06)
[2018-07-01] MEDS: ALBUTEROL/IPRATROPIUM 3 ML NEB NEB SCH ×2 (02:51→07:00)
[2018-07-01 04:00] VITALS: BP 149/67
[2018-07-01 05:29] LABS: BASOPHILS % 0.1 % (0.0-1.0); HEMATOCRIT 41.7 % (34.2-44.1); HEMOGLOBIN 13.6 g/dL (12.0-16.0); LYMPHOCYTES # (AUTO) 1.5 (1.0-3.2); LYMPHOCYTES % 14.3 % (18.0-39.1); MEAN CORPUSCULAR HEMOGLOBIN 30.8 pg (28-32); MEAN CORPUSCULAR HGB CONC 32.6 g/dL (31-35); MEAN CORPUSCULAR VOLUME 94.3 fL (81-99); MONOCYTES # (AUTO) 0.4 (0.2-0.8); MONOCYTES % 3.8 % (4.4-11.3); NEUTROPHILS # (AUTO) 8.8 (2.1-6.9); NEUTROPHILS % 81.4 % (38.7-80.0); PLATELET COUNT 268 x10e3/uL (140-360); RED BLOOD COUNT 4.42 x10e6/uL (3.6-5.1); RED CELL DISTRIBUTION WIDTH 15.9 % (11.7-14.4)
[2018-07-01 05:52] LABS: ALANINE AMINOTRANSFERASE 28 IU/L (0-55); ALBUMIN 3.1 g/dL (3.5-5.0); ALBUMIN/GLOBULIN RATIO 0.9 (0.8-2.0); ALKALINE PHOSPHATASE 112 IU/L (40-150); BLOOD UREA NITROGEN 22 mg/dL (7-26); BUN/CREATININE RATIO 28 (6-25); CALCIUM 9.4 mg/dL (8.4-10.2); CARBON DIOXIDE 34 mmol/L (22-29); CHLORIDE 102 mmol/L (98-107); EST GLOMERULAR FILTRATION RATE > 60 ML/MIN (60-); GLUCOSE 158 mg/dL (74-118); SODIUM 145 mmol/L (136-145)
[2018-07-01 06:49] LABS: INR 1.02; PROTHROMBIN TIME 12.6 seconds (11.9-14.5)
[2018-07-01] MEDS: MELOXICAM 7.5 MG TAB PO SCH (08:35)
[2018-07-01] MEDS: BENAZEPRIL HCL 10 MG TAB PO SCH (08:35)
[2018-07-01] MEDS: LORATADINE 10 MG TAB PO SCH (08:35)
[2018-07-01] MEDS: AMLODIPINE BESYLATE 5 MG TAB PO SCH (08:35)
[2018-07-01] MEDS: METHYLPREDNISOLONE SOD SUCC 125 MG/2ML VIAL IV SCH (08:35)
== END 2018-07-01 10:08 | disposition home or self-care (01) ==
LOC: ER 22:15 → ERHOLD 06-30 00:08 → IMCU 06-30 02:52
PROVIDERS: ADMIT Internal Medicine Critical Care Medicine; ATTEND Internal Medicine Critical Care Medicine
DX: J44.1 Chronic obstructive pulmonary disease with (acute) exacerbation (principal); I10 Essential (primary) hypertension; F17.210 Nicotine dependence, cigarettes, uncomplicated; Z86.711 Personal history of pulmonary embolism; Z96.651 Presence of right artificial knee joint
CPT/HCPCS: 36415 ×3; 71045; 80053 ×2; 82550 ×2; 82553 ×2; 83880; 84132; 84484 ×2; 85025 ×2; 85610 ×2; 85730; 93005; 94640 ×3; 99284; G0378 ×2; J0456 ×2; J2920; J2930 ×3; J7050

== ENCOUNTER 2018-09-12 07:06 | Inpatient (IN) | payer MEDICARE ==
[~2018-09-12] VITALS: Ht 165.1 cm; Wt 93.4 kg
--- OUTSIDE RECORDS SUMMARY | 2018-09-12 07:10 | XMS REPORT | Continuity of Care Document ---
Author Author Atiya chely [facility] Interface Address Unknown Phone Unavailable Problems Problem Status Onset Date Classification Date Reported Comments Source Right shoulder pain Active Problem 09/09/2018 Oumar Gramajo Rheumatoid arthritis of multiple sites without rheumatoid factor Active Problem 09/09/2018 Oumar Gramajo Primary osteoarthritis involving multiple joints Active Problem 09/09/2018 Oumar Gramajo Other assisted drug therapy Active Problem 09/09/2018 Oumar Gramajo Cigarette nicotine dependence, uncomplicated Active Problem 09/09/2018 Oumar Gramajo Pain in right shoulder Active Problem 09/09/2018 Oumar Gramajo Shoulder pain, left Active Problem 09/09/2018 Oumar Gramajo Hyperkalemia Active Diagnosis 09/06/2017 Oumar Gramajo Age-related osteoporosis without current pathological fracture Active Problem 09/09/2018 Oumar Gramajo Vitamin D deficiency, unspecified Active Problem 09/09/2018 Oumar Gramajo Encounter for long-term drug use Active Diagnosis 09/06/2017 Oumar Gramajo Trochanteric bursitis of left hip Active Problem 09/09/2018 Oumar Gramajo Trochanteric bursitis, right hip Active Problem 09/09/2018 Oumar Gramajo 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 Active Diagnosis 09/06/2018 Oumar Gramajo Unspecified vitamin D deficiency Active Problem 10/26/2016 Oumar Gramajo Long-term use of other medications - High Risk Active Problem 10/26/2016 Oumar Gramajo Osteopenia Active Problem 10/26/2016 Oumar Gramajo Pain in joint, lower leg Active Diagnosis 06/04/2014 Oumar Gramajo Rheumatoid arthritis Active Problem 10/26/2016 Oumar Gramajo Osteoarthrosis, lower leg Active Problem 10/26/2016 Oumar Gramajo Osteoporosis Active Diagnosis 05/03/2016 Oumar Gramajo Rheumatoid arthritis without rheumatoid factor, multiple sites Active Diagnosis 10/05/2015 Oumar Gramajo Localized osteoarthrosis not specified whether primary or secondary, other specified sites Active Diagnosis 02/17/2015 Oumar Gramajo Need for prophylactic vaccination and inoculation against influenza Active Diagnosis 10/12/2015 Oumar Gramajo Encounter for long-term use of other high-risk medications Active Diagnosis 01/10/2016 Oumar Gramajo Medications Medication Details Route Status Patient Instructions Ordering Provider Order Date Source Meloxicam 1 tablet Orally Active 7.5 MG Orally Once a day Ma 12/01/2018 Oumar Gramajo Tramadol HCl 2 tablets Orally Active 50MG Orally every 6 hrs Ma 12/01/2018 Oumar Gramajo PredniSONE 1 tablet Orally Active 5 MG Orally Once a day Gramajo 09/08/2018 Oumar Gramajo Fosamax 1 tablet Orally Active 70 MG Orally once a week Ma 09/02/2018 Oumar Gramajo Trevon as directed NA Active 5mg once a day Ma 09/02/2018 Oumar Gramajo PredniSONE 1 tablet Orally Active 5 MG Orally Once a day Ma 06/02/2018 Oumar Gramajo Tramadol HCl TAKE 2 TABLETS BY MOUTH EVERY 6 HOURS Orally Active 50MG Orally every 6 hrs Ma 09/17/2017 Oumar Gramajo Vitamin D (Ergocalciferol) 1 capsule Orally Active 72033 UNIT Orally once week Gramajo 09/04/2017 Oumar Gramajo Prolia as directed Subcutaneous Active 60 MG/ML Subcutaneous [id number] Gramajo 09/04/2017 Oumar Gramajo Vitamin D (Ergocalciferol) 1 capsule Orally Active 46032 UNIT Orally once week Ma 09/04/2017 Oumar Gramajo Imuran 1 tablet Orally Active 50 MG Orally BID Ma 09/02/2017 Oumar Gramajo Prolia as directed Subcutaneous Active 60 MG/ML Subcutaneous Ma 09/02/2017 Oumar Gramajo Imuran 1 tablet Orally Active 50 MG Orally BID Ma 09/02/2017 Oumar Gramajo Imuran 1 tablet Orally Active 50 MG Orally once a day Ma 05/20/2017 Oumar Gramajo Leflunomide 1 tablet Orally Active 10 MG Orally Once a day Ma 12/17/2016 Oumar Gramajo Tramadol HCl TAKE TWO TABLETS BY MOUTH EVERY 6 HOURS Orally Active 50MG Orally every 6 hrs Gramajo 09/27/2016 Oumar Gramajo Boniva 1 tablet Orally Active 150 MG Orally Oncce a month Gramajo 04/20/2016 Oumar Gramajo Acetaminophen-Codeine #4 1 tablet as needed Orally Active 300- 60 MG Orally bid Gramajo 01/05/2016 Oumar Gramajo Sulfasalazine 4 tablets Orally Active 500MG Orally BID Ma 01/02/2016 Oumar Gramajo Sulfasalazine take two tablets Orally Active 500MG Orally three times a day [place] 01/18/2015 Oumar Gramajo [id number] 1 capsule Orally Active 500-50 MG Orally every 12 hrs Rik 01/06/2015 Oumar Gramajo Naproxen 1 tablet as needed Orally Active 500 MG Orally Three times a day [place] 09/22/2014 Oumar Gramajo Methotrexate 5 tablets Orally Active 2.5mg Orally Once a week Ma 06/01/2014 Oumar Gramajo Folic Acid 1 tablet Orally Active 1 MG Orally Once a day Ma 06/01/2014 Oumar Gramajo Folic Acid 1 tablet Orally Active 1 MG Orally Once a day [place] 03/16/2014 Oumar Gramajo Naproxen 1 tablet Orally No Longer Active 500MG Orally three times a day [place] 03/16/2014 Oumar Gramajo Methotrexate 4 tablets Orally Active 2.5mg Orally Once a week [place] 03/16/2014 Oumar Gramajo Coumadin 1 tablet Orally Active 5mg Orally once a day Ma Oumar Gramajo Benazepril HCl 1 tablet Orally Active 20 MG Orally Once a day Ma Oumar Gramajo Meloxicam 1 tablet Orally Active 7.5 MG Orally Once a day Ma Oumar Fishreer Pravastatin Sodium 1 tablet Orally Active 20 MG Orally Once a day Ma Oumar Gramajo Tramadol HCl TAKE TWO TABLETS BY MOUTH EVERY 6 HOURS NA Active 50MG Ma Oumar Gramajo Benazepril HCl 1 tablet Orally Active 20 MG Orally Once a day Ma Oumar Fisherer Pravastatin Sodium 1 tablet Orally Active 20 MG Orally Once a day Ma Oumar Gramajo Meloxicam 1 tablet Orally Active 7.5 MG Orally Once a day Ma Oumar Gramajo Coumadin 1 tablet Orally Active 2 MG Orally once a day Ma Oumar Gramajo Vitamin D 1 tablet Orally Active 1000 UNIT Orally Once a day Ma Oumar Gramajo Tramadol HCl TAKE TWO TABLETS BY MOUTH THREE TIMES DAILY NA Active 50MG Ma Oumar Gramajo Omeprazole 1 capsule Orally Active 20 MG Orally Once a day Ma Oumar Gramajo Sulfasalazine take two tablets Orally Active 500MG Orally three times a day [place] [facility] ([facility]rgocalciferol[facility] 1 capsule Orally Active 29264 UNIT Orally once a week [place] [facility] Tram[facility] HCl 2 tablets Orally Active 50MG Orally every 6 hrs Anil Gramajo Acetaminophen-Codeine #4 1 tablet as needed Orally Active 300- 60 MG Orally bid Anil Gramajo Sulfasalazine TAKE TWO TABLETS BY MOUTH THREE TIMES DAILY Orally Active 500MG Orally tid Anil Gramajo Sulfasalazine take two tablets Orally Active 500MG Orally three times a day Rik Gramajo Allergies, Adverse Reactions, Alerts Substance Category Reaction Severity Reaction type Status Date Reported Comments Source Sulfasalazine Adverse Reaction Info Not Available Adverse Reaction Active 09/02/2018 Oumar Gramajo Plaquenil Adverse Reaction Info Not Available Adverse Reaction Active 09/02/2018 Oumar Gramajo Imuran Adverse Reaction Info Not Available Adverse Reaction Active 09/02/2018 Oumar Gramajo Immunizations Immunization Date Given Site Status Last Updated Comments Source Flu Vaccine 10/04/2015 completed Oumar Gramajo Results Order Name Results Value Reference Range Date Interpretation Comments Source Vital Signs Vital Sign Value Date Comments Source Weight 197.4 09/02/2018 Oumar Gramajo Height 62 09/02/2018 Oumar Gramajo Temperature Oral (F) 99.4 F 09/02/2018 Oumar Gramajo Heart Rate 96 09/02/2018 Oumar Gramajo Diastolic (mm Hg) 68 09/02/2018 Oumar Gramajo Systolic (mm Hg) 132 09/02/2018 Oumar Gramajo Weight 197 06/02/2018 Oumar Gramajo Height 62 06/02/2018 Oumar Gramajo Temperature Oral (F) 98.5 F 06/02/2018 Oumar Gramajo Heart Rate 100 06/02/2018 Oumar Gramajo Diastolic (mm Hg) 72 06/02/2018 Oumar Gramajo Systolic (mm Hg) 136 06/02/2018 Oumar Gramajo Weight 197 03/19/2018 Oumar Gramajo Height 62 03/19/2018 Oumar Gramajo Temperature Oral (F) 99.1 F 03/19/2018 Oumar Gramajo Heart Rate 84 03/19/2018 Oumar Gramajo Diastolic (mm Hg) 50 03/19/2018 Oumar Gramajo Systolic (mm Hg) 148 03/19/2018 Oumar Gramajo Weight 195.9 10/28/2017 Oumar Gramajo Height 62 10/28/2017 Oumar Gramajo Temperature Oral (F) 98.3 F 10/28/2017 Oumar Gramajo Heart Rate 88 10/28/2017 Oumar Gramajo Diastolic (mm Hg) 76 10/28/2017 Oumar Gramajo Systolic (mm Hg) 138 10/28/2017 Oumar Gramajo Weight 201.1 09/02/2017 Oumar Gramajo Height 62 09/02/2017 Oumar Gramajo Temperature Oral (F) 99.3 F 09/02/2017 Oumar Gramajo Diastolic (mm Hg) 80 09/02/2017 Oumar Gramajo Systolic (mm Hg) 142 09/02/2017 Oumar Gramajo Weight 197.2 05/20/2017 Oumar Gramajo Height 62 05/20/2017 Oumar Gramajo Temperature Oral (F) 99.1 F 05/20/2017 Oumar Gramajo Heart Rate 88 05/20/2017 Oumar Gramajo Diastolic (mm Hg) 60 05/20/2017 Oumar Gramajo Systolic (mm Hg) 122 05/20/2017 Oumar Gramajo Weight 200 12/17/2016 Oumar Gramajo Height 62 12/17/2016 Oumar Gramajo Temperature Oral (F) 98.9 F 12/17/2016 Oumar Gramajo Heart Rate 76 12/17/2016 Oumar Gramajo Diastolic (mm Hg) 78 12/17/2016 Oumar Gramajo Systolic (mm Hg) 142 12/17/2016 Oumar Gramajo Weight 204 08/08/2016 Oumar Gramajo Height 62 08/08/2016 Oumar Gramajo Temperature Oral (F) 97.2 F 08/08/2016 Oumar Gramajo Heart Rate 80 08/08/2016 Oumar Gramajo Diastolic (mm Hg) 82 08/08/2016 Oumar Gramajo Systolic (mm Hg) 130 08/08/2016 Oumar Gramajo Weight 201 04/18/2016 Oumar Gramajo Height 62 04/18/2016 Oumar Gramajo Temperature Oral (F) 98.1 F 04/18/2016 Oumar Gramajo Heart Rate 96 04/18/2016 Oumar Gramajo Diastolic (mm Hg) 62 04/18/2016 Oumar Gramajo Systolic (mm Hg) 140 04/18/2016 Oumar Gramajo Weight 198 01/05/2016 Oumar Gramajo Height 63 01/05/2016 Oumar Gramajo Temperature Oral (F) 98.2 F 01/05/2016 Oumar Gramajo Heart Rate 94 01/05/2016 Oumar Gramajo Diastolic (mm Hg) 70 01/05/2016 Oumar Gramajo Systolic (mm Hg) 142 01/05/2016 Oumar Gramajo Weight 198 10/04/2015 Oumar Gramajo Height 62 10/04/2015 Oumar Gramajo Temperature Oral (F) 98.3 F 10/04/2015 Oumar Gramajo Heart Rate 96 10/04/2015 Oumar Gramajo Diastolic (mm Hg) 78 10/04/2015 Oumar Gramajo Systolic (mm Hg) 142 10/04/2015 Oumar Gramajo Weight 196 01/06/2015 Oumar Gramajo Height 63 01/06/2015 Oumar Gramajo Temperature Oral (F) 99.3 F 01/06/2015 Oumar Gramajo Heart Rate 72 01/06/2015 Oumar Gramajo Diastolic (mm Hg) 68 01/06/2015 Oumar Gramajo Systolic (mm Hg) 132 01/06/2015 Oumar Gramajo Weight 206 09/02/2014 [facility] Temperature Oral (F) 98.5 F 09/02/2014 [facility] Heart Rate 89 09/02/2014 [facility] Systolic (mm Hg) 146 09/02/2014 [facility] Diastolic (mm Hg) 77 09/02/2014 [facility] Height 65 09/02/2014 [facility] Weight 194 06/01/2014 Oumar Gramajo Height 63 06/01/2014 Oumar Gramajo Temperature Oral (F) 98.6 F 06/01/2014 Oumar Gramajo Heart Rate 84 06/01/2014 Oumar Gramajo Diastolic (mm Hg) 72 06/01/2014 Oumar Gramajo Systolic (mm Hg) 140 06/01/2014 Oumar Gramajo Weight 196 03/16/2014 Oumar Gramajo Height 63 03/16/2014 Oumar Gramajo Temperature Oral (F) 98.8 F 03/16/2014 Oumar Gramajo Heart Rate 88 03/16/2014 Oumar Gramajo Diastolic (mm Hg) 74 03/16/2014 Oumar Gramajo Systolic (mm Hg) 132 03/16/2014 Oumar Gramajo Encounters Location Location Details Encounter Type Encounter Number Reason For Visit Attending Provider ADM Date DC Date Status Source Preston Gramajo MD follow u for refills [id number] 03/16/2014 03/16/2014 Oumar Gramajo MD follow u for refills [id number] 03/16/2014 03/16/2014 Oumar Gramajo MD follow u for refills [id number] 03/16/2014 03/16/2014 Oumar Gramajo MD follow u for refills [id number] 03/16/2014 03/16/2014 Oumar Gramajo MD follow u for refills [id number] 03/16/2014 03/16/2014 Oumar Gramajo MD follow u for refills [id number] 03/16/2014 03/16/2014 Oumar Gramajo MD follow u for refills [id number] 03/16/2014 03/16/2014 Oumar Gramajo MD follow u for refills [id number] 03/16/2014 03/16/2014 Oumar Gramajo MD follow u for refills [id number] 03/16/2014 03/16/2014 Oumar Gramajo MD follow u for refills [id number] 03/16/2014 03/16/2014 Oumar Gramajo MD follow u for refills [id number] 03/16/2014 03/16/2014 Oumar Gramajo MD follow u for refills [id number] 03/16/2014 03/16/2014 Oumar Gramajo MD follow u for refills [id number] 03/16/2014 03/16/2014 Oumar Gramajo MD follow u for refills [id number] 03/16/2014 03/16/2014 Omuar Gramajo MD follow u for refills [id number] 03/16/2014 03/16/2014 Oumar Gramajo MD follow u for refills [id number] 03/16/2014 03/16/2014 Oumar Gramajo MD follow u for refills [id number] 03/16/2014 03/16/2014 Oumar Gramajo MD follow u for refills [id number] 03/16/2014 03/16/2014 Oumar Gramajo MD follow u for refills [id number] 03/16/2014 03/16/2014 Oumar Gramajo MD follow u for refills [id number] 03/16/2014 03/16/2014 Oumar Gramajo MD follow u for refills [id number] 03/16/2014 03/16/2014 Oumar Gramajo MD follow u for refills [id number] 03/16/2014 03/16/2014 Oumar Gramajo MD follow u for refills [id number] 03/16/2014 03/16/2014 Oumar Gramajo MD follow u for refills [id number] 03/16/2014 03/16/2014 Oumar Gramajo MD follow u for refills [id number] 03/16/2014 03/16/2014 Oumar Gramajo MD follow u for refills [id number] 03/16/2014 03/16/2014 Oumar Gramajo MD follow u for refills [id number] 03/16/2014 03/16/2014 Oumar Gramajo MD follow u for refills [id number] 03/16/2014 03/16/2014 Oumar Gramajo MD follow u for refills [id number] 03/16/2014 03/16/2014 Oumar Gramajo MD follow u for refills [id number] 03/16/2014 03/16/2014 Oumar Gramajo MD follow u for refills [id number] 03/16/2014 03/16/2014 Oumar Gramajo MD follow u for refills [id number] 03/16/2014 03/16/2014 Oumar Gramajo MD follow u for refills [id number] 06/01/2014 06/01/2014 Oumar Gramajo MD follow u for refills [id number] 06/01/2014 06/01/2014 Oumar Gramajo MD follow u for refills [id number] 06/01/2014 06/01/2014 Oumar Gramajo MD follow u for refills [id number] 06/01/2014 06/01/2014 Oumar Gramajo MD follow u for refills [id number] 06/01/2014 06/01/2014 Oumar Gramajo MD follow u for refills [id number] 06/01/2014 06/01/2014 Oumar Gramajo MD follow u for refills [id number] 06/01/2014 06/01/2014 Oumar Gramajo MD follow u for refills [id number] 06/01/2014 06/01/2014 Oumar Gramajo MD follow u for refills [id number] 06/01/2014 06/01/2014 Oumar Gramajo MD follow u for refills [id number] 06/01/2014 06/01/2014 Oumar Gramajo MD follow u for refills [id number] 06/01/2014 06/01/2014 Oumar Gramajo MD follow u for refills [id number] 06/01/2014 06/01/2014 Oumar Gramajo MD follow u for refills [id number] 06/01/2014 06/01/2014 Oumar Gramajo MD follow u for refills [id number] 06/01/2014 06/01/2014 Oumar Gramajo MD follow u for refills [id number] 06/01/2014 06/01/2014 Oumar Gramajo MD follow u for refills [id number] 06/01/2014 06/01/2014 Oumar Gramajo MD follow u for refills [id number] 06/01/2014 06/01/2014 Oumar Gramajo MD follow u for refills [id number] 06/01/2014 06/01/2014 Oumar Gramajo MD follow u for refills [id number] 06/01/2014 06/01/2014 Oumar Gramajo MD follow u for refills [id number] 06/01/2014 06/01/2014 Oumar Gramajo MD follow u for refills [id number] 06/01/2014 06/01/2014 Oumar Gramajo MD follow u for refills [id number] 06/01/2014 06/01/2014 Oumar Gramajo MD follow u for refills [id number] 06/01/2014 06/01/2014 Oumar Gramajo MD follow u for refills [id number] 06/01/2014 06/01/2014 Oumar Gramajo MD follow u for refills [id number] 06/01/2014 06/01/2014 Oumar Gramajo MD follow u for refills [id number] 06/01/2014 06/01/2014 Oumar Gramajo MD follow u for refills [id number] 06/01/2014 06/01/2014 Oumar Gramajo MD follow u for refills [id number] 06/01/2014 06/01/2014 Oumar Gramajo MD follow u for refills [id number] 06/01/2014 06/01/2014 Oumar Gramajo MD follow u for refills [id number] 06/01/2014 06/01/2014 Oumar Gramajo MD follow u for refills [id number] 06/01/2014 06/01/2014 Oumar Gramajo MD sulfasalazine [id number] 06/04/2014 06/04/2014 Oumar Gramajo MD sulfasalazine [id number] 06/04/2014 06/04/2014 Oumar Gramajo MD sulfasalazine [id number] 06/04/2014 06/04/2014 Oumar Gramajo MD sulfasalazine [id number] 06/04/2014 06/04/2014 Oumar Gramajo MD sulfasalazine [id number] 06/04/2014 06/04/2014 Oumar Gramajo MD sulfasalazine [id number] 06/04/2014 06/04/2014 Oumar Gramajo MD sulfasalazine [id number] 06/04/2014 06/04/2014 Oumar Gramajo MD sulfasalazine [id number] 06/04/2014 06/04/2014 Oumar Gramajo MD sulfasalazine [id number] 06/04/2014 06/04/2014 Oumar Gramajo MD sulfasalazine [id number] 06/04/2014 06/04/2014 Oumar Gramajo MD sulfasalazine [id number] 06/04/2014 06/04/2014 Oumar Gramajo MD sulfasalazine [id number] 06/04/2014 06/04/2014 Oumar Gramajo MD sulfasalazine [id number] 06/04/2014 06/04/2014 Oumar Gramajo MD sulfasalazine [id number] 06/04/2014 06/04/2014 Oumar Gramajo MD sulfasalazine [id number] 06/04/2014 06/04/2014 Oumar Gramajo MD sulfasalazine [id number] 06/04/2014 06/04/2014 Oumar Gramajo MD sulfasalazine [id number] 06/04/2014 06/04/2014 Oumar Gramajo MD sulfasalazine [id number] 06/04/2014 06/04/2014 Oumar Gramajo MD sulfasalazine [id number] 06/04/2014 06/04/2014 Oumar Gramajo MD sulfasalazine [id number] 06/04/2014 06/04/2014 Oumar Gramajo MD sulfasalazine [id number] 06/04/2014 06/04/2014 Oumar Gramajo MD sulfasalazine [id number] 06/04/2014 06/04/2014 Oumar Gramajo MD sulfasalazine [id number] 06/04/2014 06/04/2014 Oumar Gramajo MD sulfasalazine [id number] 06/04/2014 06/04/2014 Oumar Gramajo MD sulfasalazine [id number] 06/04/2014 06/04/2014 Oumar Gramajo MD sulfasalazine [id number] 06/04/2014 06/04/2014 Oumar Gramajo MD sulfasalazine [id number] 06/04/2014 06/04/2014 Oumar Gramajo MD sulfasalazine [id number] 06/04/2014 06/04/2014 Oumar Gramajo MD sulfasalazine [id number] 06/04/2014 06/04/2014 Oumar Gramajo MD sulfasalazine [id number] 06/04/2014 06/04/2014 Oumar Gramajo MD sulfasalazine [id number] 06/04/2014 06/04/2014 Oumar Gramajo MD Refill- Tramadol [id number] 07/21/2014 07/21/2014 Oumar Gramajo MD Refill- Tramadol [id number] 07/21/2014 07/21/2014 Oumar Gramajo MD Refill- Tramadol [id number] 07/21/2014 07/21/2014 Oumar Gramajo MD Refill- Tramadol [id number] 07/21/2014 07/21/2014 Oumar Gramajo MD Refill- Tramadol [id number] 07/21/2014 07/21/2014 Oumar Gramajo MD Refill- Tramadol [id number] 07/21/2014 07/21/2014 Oumar Gramajo MD Refill- Tramadol [id number] 07/21/2014 07/21/2014 Oumar Gramajo MD Refill- Tramadol [id number] 07/21/2014 07/21/2014 Oumar Gramajo MD Refill- Tramadol [id number] 07/21/2014 07/21/2014 Oumar Gramajo MD Refill- Tramadol [id number] 07/21/2014 07/21/2014 Oumar Gramajo MD Refill- Tramadol [id number] 07/21/2014 07/21/2014 Oumar Gramajo MD Refill- Tramadol [id number] 07/21/2014 07/21/2014 Oumar Gramajo MD Refill- Tramadol [id number] 07/21/2014 07/21/2014 Oumar Gramajo MD Refill- Tramadol [id number] 07/21/2014 07/21/2014 Oumar Gramajo MD Refill- Tramadol [id number] 07/21/2014 07/21/2014 Oumar Gramajo MD Refill- Tramadol [id number] 07/21/2014 07/21/2014 Oumar Gramajo MD Refill- Tramadol [id number] 07/21/2014 07/21/2014 Oumar Gramajo MD Refill- Tramadol [id number] 07/21/2014 07/21/2014 Oumar Gramajo MD Refill- Tramadol [id number] 07/21/2014 07/21/2014 Oumar Gramajo MD Refill- Tramadol [id number] 07/21/2014 07/21/2014 Oumar Gramajo MD Refill- Tramadol [id number] 07/21/2014 07/21/2014 Oumar Gramajo MD Refill- Tramadol [id number] 07/21/2014 07/21/2014 Oumar Gramajo MD Refill- Tramadol [id number] 07/21/2014 07/21/2014 Oumar Gramajo MD Refill- Tramadol [id number] 07/21/2014 07/21/2014 Oumar Gramajo MD Refill- Tramadol [id number] 07/21/2014 07/21/2014 Oumar Gramajo MD Refill- Tramadol [id number] 07/21/2014 07/21/2014 Oumar Gramajo MD Refill- Tramadol [id number] 07/21/2014 07/21/2014 Oumar Gramajo MD Refill- Tramadol [id number] 07/21/2014 07/21/2014 Oumar Gramajo MD Refill- Tramadol [id number] 07/21/2014 07/21/2014 Oumar Gramajo MD tramadol- refill [id number] 08/20/2014 08/20/2014 Oumar Gramajo MD tramadol- refill [id number] 08/20/2014 08/20/2014 Oumar Gramajo MD tramadol- refill [id number] 08/20/2014 08/20/2014 Oumar Gramajo MD tramadol- refill [id number] 08/20/2014 08/20/2014 Oumar Gramajo MD tramadol- refill [id number] 08/20/2014 08/20/2014 Oumar Gramajo MD tramadol- refill [id number] 08/20/2014 08/20/2014 Oumar Gramajo MD tramadol- refill [id number] 08/20/2014 08/20/2014 Oumar Gramajo MD tramadol- refill [id number] 08/20/2014 08/20/2014 Oumar Gramajo MD tramadol- refill [id number] 08/20/2014 08/20/2014 Oumar Gramajo MD tramadol- refill [id number] 08/20/2014 08/20/2014 Oumar Gramajo MD tramadol- refill [id number] 08/20/2014 08/20/2014 Oumar Gramajo MD tramadol- refill [id number] 08/20/2014 08/20/2014 Oumar Gramajo MD tramadol- refill [id number] 08/20/2014 08/20/2014 Oumar Gramajo MD tramadol- refill [id number] 08/20/2014 08/20/2014 Oumar Gramajo MD tramadol- refill [id number] 08/20/2014 08/20/2014 Oumar Gramajo MD tramadol- refill [id number]-nw421gwn2z67 08/20/2014 08/20/2014 Oumar Gramajo MD tramadol- refill [id number]-q1f9-155p4m4a2504 08/20/2014 08/20/2014 Oumar Gramajo MD tramadol- refill [id number]-[id number] 08/20/2014 08/20/2014 Oumar Gramajo MD tramadol- refill [id number]-[id number] 08/20/2014 08/20/2014 Oumar Gramajo MD tramadol- refill [id number]-r838-g8jfb02io48c 08/20/2014 08/20/2014 Oumar Gramajo MD tramadol- refill [id number]-47k4-wu79z03166c9 08/20/2014 08/20/2014 Oumar Gramajo MD tramadol- refill [id number]-e402-b4twwg7541uj 08/20/2014 08/20/2014 Oumar Gramajo MD tramadol- refill 4h3sxcg2-gr89-8vk6-697x-rj9qinl4z0w3 08/20/2014 08/20/2014 Oumar Gramajo MD tramadol- refill okxjto3d-n275-8fgy-z32f-1ukyy15j1z64 08/20/2014 08/20/2014 Oumar Gramajo MD tramadol- refill 9yvfnj2x-197z-54i7-bhhe-04u84mcxcm63 08/20/2014 08/20/2014 Oumar Gramajo MD tramadol- refill [id number]-xoa48e451503 08/20/2014 08/20/2014 Oumar Gramajo MD tramadol- refill [id number]-0789w79p4fc2 08/20/2014 08/20/2014 Oumar Gramajo MD tramadol- refill [id number]-[id number]-e881-e12h862r9p4u 08/20/2014 08/20/2014 Oumar Gramajo MD tramadol- refill [id number]-8032-a7gs-5dz021f87t54 08/20/2014 08/20/2014 Oumar Gramajo [facility] Lab Report [id number] Kelechi Peacock MD 09/07/2014 09/07/2014 [facility] Preston Gramajo MD RX Request-- Sulfasalazine [id number]-[id number] 09/20/2014 09/20/2014 Oumar Gramajo MD RX Request-- Sulfasalazine [id number]-[id number] 09/20/2014 09/20/2014 Oumar Gramajo MD RX Request-- Sulfasalazine [id number]-[id number] 09/20/2014 09/20/2014 Oumar Gramajo MD RX Request-- Sulfasalazine 8468uemv-1p95-70p59i60-43p5-4619-755mkv381ns1 09/20/2014 09/20/2014 Oumar Gramajo MD RX Request-- Sulfasalazine [id number]-r33y-l5q1ip7z95k9 09/20/2014 09/20/2014 Oumar Gramajo MD RX Request-- Sulfasalazine [id number]-w8e1-0w03rw7m7z16 09/20/2014 09/20/2014 Oumar Gramajo MD RX Request-- Sulfasalazine [id number]-8zg9-8456-20n14x5iw631 09/20/2014 09/20/2014 Oumar Gramajo MD RX Request-- Sulfasalazine vp9r6me1-n91f-06p0-62qf-r9no022ywih9 09/20/2014 09/20/2014 Oumar Gramajo MD RX Request-- Sulfasalazine [id number]-25xo-323j-4995-n7i4a2s01p4l 09/20/2014 09/20/2014 Oumar Gramajo MD RX Request-- Sulfasalazine 92bw8d6x-ndb5-3130-f30p-88j1iz9o6u78 09/20/2014 09/20/2014 Oumar Gramajo MD RX Request-- Sulfasalazine [id number]-hl89t52l52a3 09/20/2014 09/20/2014 Oumar Gramajo MD RX Request-- Sulfasalazine od54hv45-bb87-47c5-tc4y-y8h06380g8tg 09/20/2014 09/20/2014 Oumar Gramajo MD RX Request-- Sulfasalazine [id number]-lvu3yes49qwh 09/20/2014 09/20/2014 Oumar Gramajo MD RX Request-- Sulfasalazine [id number]-u989nj8217r3 09/20/2014 09/20/2014 Oumar Gramajo MD RX Request-- Sulfasalazine 82r3wba7-a91d-1f7m-4470-lt002194a463 09/20/2014 09/20/2014 Oumar Gramajo MD RX Request-- Sulfasalazine [id number]-d7q1-45vbw2infs33 09/20/2014 09/20/2014 Oumar Gramajo MD RX Request-- Sulfasalazine [id number]-[id number] 09/20/2014 09/20/2014 Oumar Gramajo MD RX Request-- Sulfasalazine 11otg128-2nsy-026l-m24k-111gyt7s4a34 09/20/2014 09/20/2014 Oumar Gramajo MD RX Request-- Sulfasalazine 780nlun7-14l3-45vp-o7rq-tc3vj9s350d2 09/20/2014 09/20/2014 Oumar Gramajo MD RX Request-- Sulfasalazine [id number]-r9v5-85550wv6148a 09/20/2014 09/20/2014 Oumar Gramajo MD RX Request-- Sulfasalazine [id number]-4089-332z-0k20-7u06eo5b207d 09/20/2014 09/20/2014 Oumar Gramajo MD RX Request-- Sulfasalazine 95i8015q-yfe4-40tt-0tr7-1iz42s2bs3c0 09/20/2014 09/20/2014 Oumar Gramajo MD RX Request-- Sulfasalazine [id number]-1960-7ijr-ipqu-23i7j8r8t142 09/20/2014 09/20/2014 Oumar Gramajo MD RX Request-- Sulfasalazine [id number]-o768-m2sd9dg8h49z 09/20/2014 09/20/2014 Oumar Gramajo MD RX Request-- Sulfasalazine 240754dj-p394-4951-1h62-1h6g5o6nd3i1 09/20/2014 09/20/2014 Oumar Gramajo MD RX Request-- Sulfasalazine [id number]-0546-8x2l-ky1z-0li50nc73ez5 09/20/2014 09/20/2014 Oumar Gramajo MD RX Request-- Sulfasalazine a08o67e0-[id number] 09/20/2014 09/20/2014 Oumar Gramajo MD RX Request-- Naproxen [id number]-9u96-2817-r8ets25r56d1 09/22/2014 09/22/2014 Oumar Gramajo MD RX Request-- Naproxen 5i542x15-k7h0-1o63-g871-9j400198ec25 09/22/2014 09/22/2014 Oumar Gramajo MD RX Request-- Naproxen aa57o8j4-92u5-64bz-e9b5-hi411b322521 09/22/2014 09/22/2014 Oumar Gramajo MD RX Request-- Naproxen r00oom68-hcmx-2yx7-n0d3-m166iv7s2hl0 09/22/2014 09/22/2014 Oumar Gramajo MD RX Request-- Naproxen 923w7d7p-160j-3282-nj75-1j0z386w1ha3 09/22/2014 09/22/2014 Oumar Gramajo MD RX Request-- Naproxen 6v3bi49p-75hm-3u60-1934-s207yi499qgr 09/22/2014 09/22/2014 Oumar Gramajo MD RX Request-- Naproxen cw32z84f-3p25-9cel-w78p-6f9g1491u56p 09/22/2014 09/22/2014 Oumar Gramajo MD RX Request-- Naproxen 5997176z-v25s-8b94-zc6g-8bp120q7898t 09/22/2014 09/22/2014 Oumar Gramajo MD RX Request-- Naproxen 8spk673y-k9x4-3964-00n5-021sk2y8y30w 09/22/2014 09/22/2014 Oumar Gramajo MD RX Request-- Naproxen 732f8gm1-00e7-3p09-2j0e-z0125a945302 09/22/2014 09/22/2014 Oumar Gramajo MD RX Request-- Naproxen 483tj988-245v-8efx-s01h-d5ewl8o1i3ym 09/22/2014 09/22/2014 Oumar Gramajo MD RX Request-- Naproxen [id number] 09/22/2014 09/22/2014 Oumar Gramajo MD RX Request-- Naproxen 09f87142-52zn-34xb-z5i8-l2s561cg07tr 09/22/2014 09/22/2014 Oumar Gramajo MD RX Request-- Naproxen 62v58t61-1466-080c-s254-6a9dr0306f21 09/22/2014 09/22/2014 Oumar Gramajo MD RX Request-- Naproxen vo34e8o9-x91v-3b4l-2047-38d89c8gc767 09/22/2014 09/22/2014 Oumar Gramajo MD RX Request-- Naproxen 610x7905-1h81-6o0m-9v1p-67d6547nw884 09/22/2014 09/22/2014 Oumar Gramajo MD RX Request-- Naproxen [id number]-ujrsu7i40986 09/22/2014 09/22/2014 Oumar Gramajo MD RX Request-- Naproxen 46k740p9-5q05-6sc7-1n23-89p7rh60e8p7 09/22/2014 09/22/2014 Oumar Gramajo MD RX Request-- Naproxen [id number]-kgu6-086t-[id number] 09/22/2014 09/22/2014 Oumar Gramajo MD RX Request-- Naproxen w50ujj58-s5b0-1n67-6251-60j683zt5ou8 09/22/2014 09/22/2014 Oumar Gramajo MD RX Request-- Naproxen wkl3560k-2rpr-6189-20oq-hcnu89v3o9t9 09/22/2014 09/22/2014 Oumar Gramajo MD RX Request-- Naproxen g49273re-x383-1n27-fcp4-03vi050u7i4f 09/22/2014 09/22/2014 Oumar Gramajo MD RX Request-- Naproxen 62cqeo46-d57v-7062-1294-irglg909jx92 09/22/2014 09/22/2014 Oumar Gramajo MD RX Request-- Naproxen [id number]-28o5-[id number] 09/22/2014 09/22/2014 Oumar Gramajo MD RX Request-- Naproxen 1wr22x6x-3730-07j9-842n-ys2ay45b697p 09/22/2014 09/22/2014 Oumar Gramajo MD RX Request-- Naproxen u2zkw587-h519-3u18-k433-p768102z5qyr 09/22/2014 09/22/2014 Oumar Gramajo MD Refill- Naproxen f3y6j4l1-ks90-0ct3-n952-3t52f1as3450 09/24/2014 09/24/2014 Oumar Gramajo MD Refill- Naproxen [id number]-178o-5u9b82p86r33 09/24/2014 09/24/2014 Oumar Gramajo MD Refill- Naproxen 9ns73zht-zd66-66wj-c937-554dey600v18 09/24/2014 09/24/2014 Oumar Gramajo MD Refill- Naproxen 942ej719-oj1u-6381-n0xe-irf05823n435 09/24/2014 09/24/2014 Oumar Gramajo MD Refill- Naproxen [id number]-fep5-9465-mb0w-3542o7546269 09/24/2014 09/24/2014 Oumar Gramajo MD Refill- Naproxen 8x98e5x3-l770-3x16-c8ri-613o20g2v72z 09/24/2014 09/24/2014 Oumar Gramajo MD Refill- Naproxen 4174le55-7050-802q-bzw6-2o8c7l3q44f1 09/24/2014 09/24/2014 Oumar Gramajo MD Refill- Naproxen n8330mm9-qku0-319p-z30u-93674820o59d 09/24/2014 09/24/2014 Oumar Gramajo MD Refill- Naproxen 82f1500s-4917-1u99-vht3-2h0l5163e5y6 09/24/2014 09/24/2014 Oumar Gramajo MD Refill- Naproxen u8q47793-68jc-4m02-6i69-p655oe209817 09/24/2014 09/24/2014 Oumar Gramajo MD Refill- Naproxen 374xv598-5ti9-7wxn-b55i-21304ylm5866 09/24/2014 09/24/2014 Oumar Gramajo MD Refill- Naproxen [id number]-[id number]-[id number] 09/24/2014 09/24/2014 Oumar Gramajo MD Refill- Naproxen 0kf67wc7-22z3-60uu-273q-9b174nyt5x62 09/24/2014 09/24/2014 Oumar Gramajo MD Refill- Naproxen 424jc76s-2lwd-76eb-37zj-o80z9743g5h9 09/24/2014 09/24/2014 Oumar Gramajo MD Refill- Naproxen 4l88f881-02p2-32h4-5f64-90927ef1p367 09/24/2014 09/24/2014 Oumar Gramajo MD Refill- Naproxen g78un1q1-j621-8736-yo91-4w0jd47sr17y 09/24/2014 09/24/2014 Oumar Gramajo MD Refill- Naproxen 580tmm1h-43w9-042s-0342-811nn0z9aw7s 09/24/2014 09/24/2014 Oumar Gramajo MD Refill- Naproxen g6052mg0-56fy-0849-2om1-93j9rt36t1d2 09/24/2014 09/24/2014 Oumar Gramajo MD Refill- Naproxen lbh2p590-97b0-47s5-6963-52gf93u78m74 09/24/2014 09/24/2014 Oumar Gramajo MD Refill- Naproxen 99b3e83i-p04k-2415-u2yg-79nz9p0t74fy 09/24/2014 09/24/2014 Oumar Gramajo MD Refill- Naproxen 0hsr1qp4-30b5-33r7-m339-5hk29s2m429l 09/24/2014 09/24/2014 Oumar Gramajo MD Refill- Naproxen v1l04222-x236-9gjb-v66s-yf23yevo8x8c 09/24/2014 09/24/2014 Oumar Gramajo MD Refill- Naproxen z1eq6692-72n3-8b67-s01g-594f68b63j16 09/24/2014 09/24/2014 Oumar Gramajo MD Refill- Naproxen 6r11p60n-xlog-2sye-3070-788n9re52kfb 09/24/2014 09/24/2014 Oumar Gramajo MD Refill- Naproxen c0t4455o-0741-4r30-llr6-1bx253h907py 09/24/2014 09/24/2014 Oumar Gramajo MD Refill- Naproxen 14f1j618-5987-50ba-bk6w-f2933ga7435u 09/24/2014 09/24/2014 Oumar Gramajo MD DEXA 873t524l-8wom-38ur-ha0j-63mxm7s9dw82 10/15/2014 10/15/2014 Oumar Gramajo MD DEXA 7xhn0xd0-x7k1-6j80-9333-1jo0s60nu308 10/15/2014 10/15/2014 Oumar Gramajo MD DEXA [id number]-g92d-m7h93rip3r03 10/15/2014 10/15/2014 Oumar Gramajo MD DEXA [id number]-6ah0-j58s-3756i49e7u82 10/15/2014 10/15/2014 Oumar Gramajo MD DEXA [id number]-xscl-3042-q664-d0y98sx50523 10/15/2014 10/15/2014 Oumar Gramajo MD DEXA 5257dpo6-4979-78ug-2522-aqxn02hq48j1 10/15/2014 10/15/2014 Oumar Gramajo MD DEXA 07p70f66-664u-07a5-3evw-k1f07q497c04 10/15/2014 10/15/2014 Oumar Gramajo MD DEXA 07cxnh4p-y9g6-5773-n823-3vdq7236f9r2 10/15/2014 10/15/2014 Oumar Gramajo MD DEXA 1ne246nq-z97z-8h95-8wea-u458i6228ga4 10/15/2014 10/15/2014 Oumar Gramajo MD DEXA 75v59qzw-gjy5-2v04-dw87-a55995r8ej59 10/15/2014 10/15/2014 Oumar Gramajo MD DEXA 7ko76p5d-nk52-91i7-0525-li2g5gfr348j 10/15/2014 10/15/2014 Oumar Gramajo MD DEXA z2d4kftg-6uag-1794-q334-k79a4955kl3r 10/15/2014 10/15/2014 Oumar Gramajo MD DEXA [id number]-0zs2-2260n6e13n94 10/15/2014 10/15/2014 Oumar Gramajo MD [facility] 8zvx86p6-bd7f-548v-r09v-507v35062fb6 10/15/2014 10/15/2014 Oumar Gramajo MD MRI [facility] s91m6766-t674-1ugh-f4o2-39t4en088tjb 10/15/2014 10/15/2014 Oumar Gramajo MD MRI [facility] [id number]-u34z-77eptd0bq75w 10/15/2014 10/15/2014 Oumar Gramajo MD MRI [facility] [id number]-1bo0-d5xz-j9ut6839e539 10/15/2014 10/15/2014 Oumar Gramajo MD [facility] 42x523p7-9xp2-48bx-8sq7-140b4usi0125 10/15/2014 10/15/2014 Oumar Gramjao MD [facility] [id number]-[id number] 10/15/2014 10/15/2014 Oumar Gramajo MD [facility] 8958d774-39ht-86m8-5m89-8w9ek1q25r25 10/15/2014 10/15/2014 Oumar Gramajo MD [facility] 7ftev7cr-9597-65o9-v151-9g264dlhk90x 10/15/2014 10/15/2014 Oumar Gramajo MD MRI [facility] ly93xxli-9949-4sr9-3402-g3r38sjx86ol 10/15/2014 10/15/2014 Oumar Gramajo MD MRI [facility] [id number]-16pa-6ga1-xemm-93g08816e4p5 10/15/2014 10/15/2014 Oumar Gramajo MD MRI [facility] [id number]-4590-r535t59758en 10/15/2014 10/15/2014 Oumar Gramajo MD MRI [facility] [id number]-34ki-3hgz-scv6-730d9907r353 10/15/2014 10/15/2014 Oumar Gramajo MD MRI [facility] 78wfv58x-01ih-36hc-2841-54qf18s75dw0 10/15/2014 10/15/2014 Oumar Gramajo MD DEXA [id number]-4tra6tvo8jcw 10/15/2014 10/15/2014 Oumar Gramajo MD DEXA 4p5c8bco-[id number]-4h14-7yb3kdvb3860 10/15/2014 10/15/2014 Oumar Gramajo MD DEXA 6m97a52n-v8r4-0k0d-l920-j4n19uj96819 10/15/2014 10/15/2014 Oumar Gramajo MD DEXA [id number]-g606-33z7261a14b0 10/15/2014 10/15/2014 Oumar Gramajo MD DEXA [id number]-p3ta-[id number] 10/15/2014 10/15/2014 Oumar Gramajo MD DEXA [id number]-a3j5608r227k 10/15/2014 10/15/2014 Oumar Gramajo MD DEXA [id number]-3l09-7bo7-576zp62h2997 10/15/2014 10/15/2014 Oumar Gramajo MD DEXA 1015qx6j-9r7n-714i-3opn-c825sl3r4pjy 10/15/2014 10/15/2014 Oumar Gramajo MD DEXA [id number]-lxl90i7hv52y 10/15/2014 10/15/2014 Oumar Gramajo MD DEXA [id number]-wiu3-i962114op734 10/15/2014 10/15/2014 Oumar Gramajo MD DEXA [id number]-z27d-[id number] 10/15/2014 10/15/2014 Oumar Gramajo MD MRI [facility] [id number]-[id number] 10/15/2014 10/15/2014 Oumar Gramajo MD [facility] [id number]-48c4-8g7k-509gk3q96y95 10/15/2014 10/15/2014 Oumar Gramajo MD MRI [facility] [id number]-q0qp-71ltnkd07931 10/15/2014 10/15/2014 Oumar Gramajo MD MRI [facility] [id number]-iz2l-[id number] 10/15/2014 10/15/2014 Oumar Gramajo MD [facility] [id number]-ze88-[id number] 10/15/2014 10/15/2014 Oumar Gramajo MD MRI [facility] [id number]-1029-c0a561n62c10 10/15/2014 10/15/2014 Oumar Gramajo MD MRI [facility] n6u4or2k-of26-270m-8xh9-oy0vf2793j2q 10/15/2014 10/15/2014 Oumar Gramajo MD MRI [facility] 431ltzqz-[id number]-4s8c9593dko9 10/15/2014 10/15/2014 Oumar Gramajo MD MRI [facility] [id number] 10/15/2014 10/15/2014 Oumar Gramajo MD MRI [facility] [id number] 10/15/2014 10/15/2014 Oumar Gramajo MD Follow up--End of Nov [id number] 11/22/2014 11/22/2014 Oumar Gramajo MD Follow up--End of Nov [id number] 11/22/2014 11/22/2014 Oumar Gramaoj MD Follow up--End of Nov [id number] 11/22/2014 11/22/2014 Oumar Gramajo MD Follow up--End of Nov [id number] 11/22/2014 11/22/2014 Oumar Gramajo MD Follow up--End of Nov [id number]-4gr38r391c88 11/22/2014 11/22/2014 Oumar Gramajo MD Follow up--End of Nov [id number]-fssy-87wy-[id number] 11/22/2014 11/22/2014 Oumar Gramajo MD Follow up--End of Nov [id number] 11/22/2014 11/22/2014 Oumar Gramajo MD Follow up--End of Nov [id number]-[id number] 11/22/2014 11/22/2014 Oumar Gramajo MD Follow up--End of Nov [id number] 11/22/2014 11/22/2014 Oumar Gramajo MD Follow up--End of Nov [id number] 11/22/2014 11/22/2014 Oumar Gramajo MD Follow up--End of Nov 50tj2i93-1ydt-[id number]-54xv59ajsn12 11/22/2014 11/22/2014 Oumar Gramajo MD Follow up--End of Nov [id number] 11/22/2014 11/22/2014 Oumar Gramajo MD Follow up--End of Nov [id number]-m57i-36293m2l2826 11/22/2014 11/22/2014 Oumar Gramajo MD Follow up--End of Nov [id number]-[id number] 11/22/2014 11/22/2014 Oumar Gramajo MD Follow up--End of Nov [id number]-[id number] 11/22/2014 11/22/2014 Oumar Gramajo MD Follow up--End of Nov [id number] 11/22/2014 11/22/2014 Oumar Gramajo MD Follow up--End of Nov [id number] 11/22/2014 11/22/2014 Oumar Gramajo MD Follow up--End of Nov [id number]-40gh-raf7nq51z805 11/22/2014 11/22/2014 Oumar Gramajo MD Follow up--End of Nov [id number]-[id number]-nfp61882g9k2 11/22/2014 11/22/2014 Oumar Gramajo MD Follow up--End of Nov [id number] 11/22/2014 11/22/2014 Oumar Gramajo MD Follow up--End of Nov [id number]-[id number] 11/22/2014 11/22/2014 Oumar Gramajo MD Follow up--End of Nov [id number]-[id number] 11/22/2014 11/22/2014 Oumar Gramajo MD Add on 01/06 [id number]-xqj4-[id number] 01/05/2015 01/05/2015 Oumar Gramajo MD Add on 01/06 [id number]-eo57-24s8-kp67-1216y8f70g90 01/05/2015 01/05/2015 Oumar Gramajo MD Add on 01/06 crb16tkn-4s2o-0125-57a8-ef414uyernzr 01/05/2015 01/05/2015 Oumar Gramajo MD Add on 01/06 [id number]-4u24-b8u3-1q7k6791023d 01/05/2015 01/05/2015 Oumar Gramajo MD Add on 01/06 [id number]-[id number] 01/05/2015 01/05/2015 Oumar Gramajo MD Add on 01/06 [id number]-[id number]-sjg4o432s30y 01/05/2015 01/05/2015 Oumar Gramajo MD Add on 01/06 [id number] 01/05/2015 01/05/2015 Oumar Gramajo MD Add on 01/06 2t0d3s0b-mf79-6784-bop8-6l946fm34784 01/05/2015 01/05/2015 Oumar Gramajo MD Add on 01/06 72pde3de-2495-03va-9zoj-567lmojt7av1 01/05/2015 01/05/2015 Oumar Gramajo MD Add on 01/06 [id number]-1731r400dr2r 01/05/2015 01/05/2015 Oumar Gramajo MD Add on 01/06 [id number]-z4v6-9pm3-w3yh-319l84t1s697 01/05/2015 01/05/2015 Oumar Gramajo MD Add on 01/06 [id number]-l387339ospf8 01/05/2015 01/05/2015 Oumar Gramajo MD Add on 01/06 [id number]-48bt-p1f8h471cu29 01/05/2015 01/05/2015 Oumar Gramajo MD Add on 01/06 [id number]-849hq4uybz0p 01/05/2015 01/05/2015 Oumar Gramajo MD Add on 01/06 [id number]-[id number]-i35w9g47w2f8 01/05/2015 01/05/2015 Oumar Gramajo MD Add on 01/06 66079m9r-h9pw-4887-4573-ld7g2em589o2 01/05/2015 01/05/2015 Oumar Gramajo MD Add on 01/06 [id number]-[id number] 01/05/2015 01/05/2015 Oumar Gramajo MD Add on 01/06 75h28qgo-v9f4-6q43-0nr1-5614x1my03t3 01/05/2015 01/05/2015 Oumar Gramajo MD Add on 01/06 [id number] 01/05/2015 01/05/2015 Oumar Gramajo MD Add on 01/06 [id number]-[id number]-t84t-244v9o94g455 01/05/2015 01/05/2015 Oumar Gramajo MD Add on 01/06 [id number] 01/05/2015 01/05/2015 Oumar Gramajo MD f/u [id number]-4g48-6pt1-hl6q79f0qy1x 01/06/2015 01/06/2015 Oumar Gramajo MD f/u 611ntqc8-0h5x-6264-57xx-639930ff1gd8 01/06/2015 01/06/2015 Oumar Gramajo MD f/u [id number]-5635-n729-504lg1640x59 01/06/2015 01/06/2015 Oumar Gramajo MD f/u [id number]-a8t0-61g6-15f5-ak6f56a91x53 01/06/2015 01/06/2015 Oumar Gramajo MD f/u [id number] 01/06/2015 01/06/2015 Oumar Gramajo MD f/u e006m1c3-dmi5-0172-07p9-50jzfzmw7u84 01/06/2015 01/06/2015 Oumar Gramajo MD f/u [id number] 01/06/2015 01/06/2015 Oumar Gramajo MD f/u [id number] 01/06/2015 01/06/2015 Oumar Gramajo MD f/u q4ra65e7-rsk8-45g8-8c4p-9s00sv0l3g0g 01/06/2015 01/06/2015 Oumar Gramajo MD f/u [id number] 01/06/2015 01/06/2015 Oumar Gramajo MD f/u [id number]-2686-cdp9-440cx1q97986 01/06/2015 01/06/2015 Oumar Gramajo MD f/u [id number]-u955-4xn0700qb0xd 01/06/2015 01/06/2015 Oumar Gramajo MD f/u [id number]-1243-476v-678c0bvvrl9s 01/06/2015 01/06/2015 Oumar Gramajo MD f/u 76k12y96-53g9-741i-mz83-4d1k687kc1dd 01/06/2015 01/06/2015 Oumar Gramajo MD f/u [id number]-z211-ri4892117y34 01/06/2015 01/06/2015 Oumar Gramajo MD f/u 7v3u2169-64cg-3j8l-m7do-42bc1avpq7lx 01/06/2015 01/06/2015 Oumar Gramajo MD f/u q94s656t-2920-5x20-5b7p-689c7ws5c6em 01/06/2015 01/06/2015 Oumar Gramajo MD f/u 6yzjk4el-155o-2798-wqej-t7i63bh0e3h1 01/06/2015 01/06/2015 Oumar Gramajo MD f/u 3rih47yc-zf29-5s77-yczv-1x429s034k44 01/06/2015 01/06/2015 Oumar Gramajo MD f/u [id number]-zq1n-23mw36is17qb 01/06/2015 01/06/2015 Oumar Gramajo MD DEXA 38ry79ss-[id number]-91xh-a35yf87069n3 01/06/2015 01/06/2015 Oumar Gramajo MD DEXA [id number] 01/06/2015 01/06/2015 Oumar Gramajo MD DEXA 636qy89c-[id number]-x94q-s611609cy0p3 01/06/2015 01/06/2015 Oumar Gramajo MD DEXA 6ofc1mc5-t0f2-9199-882b-9fk26gl116lj 01/06/2015 01/06/2015 Oumar Gramajo MD DEXA kw1nv3b6-s2x2-77o1-n074-9097x41400i9 01/06/2015 01/06/2015 Oumar Gramajo MD DEXA [id number]-fr68-t6p589852o1r 01/06/2015 01/06/2015 Oumar Gramajo MD DEXA [id number]-20ic-wo61-9b0njk96f71a 01/06/2015 01/06/2015 Oumar Gramajo MD DEXA [id number]-7sq1-p7n9-01qa1662d9pg 01/06/2015 01/06/2015 Oumar Gramajo MD DEXA [id number]-9226-r6470u79z6xx 01/06/2015 01/06/2015 Oumar Gramajo MD DEXA [id number] 01/06/2015 01/06/2015 Oumar Gramajo MD DEXA [id number]-cb9x-52r29y4ua08a 01/06/2015 01/06/2015 Oumar Gramajo MD DEXA [id number]-owo38091y0et 01/06/2015 01/06/2015 Oumar Gramajo MD DEXA [id number] 01/06/2015 01/06/2015 Oumar Gramajo MD DEXA [id number] 01/06/2015 01/06/2015 Oumar Gramajo MD DEXA [id number] 01/06/2015 01/06/2015 Oumar Gramajo MD DEXA [id number]-[id number] 01/06/2015 01/06/2015 Oumar Gramajo MD DEXA [id number]-[id number]-1o07-03kyw41c049c 01/06/2015 01/06/2015 Oumar Gramajo MD DEXA [id number]-keox-62sef4cytda4 01/06/2015 01/06/2015 Oumar Gramajo MD DEXA [id number] 01/06/2015 01/06/2015 Oumar Gramajo MD DEXA [id number] 01/06/2015 01/06/2015 Oumar Gramajo MD DEXA [id number] 01/06/2015 01/06/2015 Oumar Gramajo MD Records Request [id number] 01/06/2015 01/06/2015 Oumar Gramajo MD Records Request [id number] 01/06/2015 01/06/2015 Oumar Gramajo MD Records Request [id number] 01/06/2015 01/06/2015 Oumar Gramajo MD Records Request [id number] 01/06/2015 01/06/2015 Oumar Gramajo MD Records Request [id number] 01/06/2015 01/06/2015 Oumar Gramajo MD Records Request [id number] 01/06/2015 01/06/2015 Oumar Gramajo MD Records Request [id number] 01/06/2015 01/06/2015 Oumar Gramajo MD Records Request [id number] 01/06/2015 01/06/2015 Oumar Gramajo MD Records Request [id number] 01/06/2015 01/06/2015 Oumar Gramajo MD Records Request [id number] 01/06/2015 01/06/2015 Oumar Gramajo MD Records Request [id number] 01/06/2015 01/06/2015 Oumar Gramajo MD Records Request [id number] 01/06/2015 01/06/2015 Oumar Gramajo MD Records Request [id number] 01/06/2015 01/06/2015 Oumar Gramajo MD Records Request [id number] 01/06/2015 01/06/2015 Oumar Gramajo MD Records Request [id number] 01/06/2015 01/06/2015 Oumar Gramajo MD Records Request [id number] 01/06/2015 01/06/2015 Oumar Gramajo MD Records Request [id number] 01/06/2015 01/06/2015 Oumar Gramajo MD Records Request [id number] 01/06/2015 01/06/2015 Oumar Gramajo MD Records Request [id number] 01/06/2015 01/06/2015 Oumar Gramajo MD Records Request [id number] 01/06/2015 01/06/2015 Oumar Gramajo MD Records Request [id number] 01/06/2015 01/06/2015 Oumar Gramajo MD RX Dispense Issue [id number] 01/07/2015 01/07/2015 Oumar Gramajo MD RX Dispense Issue [id number] 01/07/2015 01/07/2015 Oumar Gramajo MD RX Dispense Issue [id number] 01/07/2015 01/07/2015 Oumar Gramajo MD RX Dispense Issue [id number] 01/07/2015 01/07/2015 Oumar Gramajo MD RX Dispense Issue [id number] 01/07/2015 01/07/2015 Oumar Gramajo MD RX Dispense Issue [id number] 01/07/2015 01/07/2015 Oumar Gramajo MD RX Dispense Issue [id number] 01/07/2015 01/07/2015 Oumar Gramajo MD RX Dispense Issue [id number] 01/07/2015 01/07/2015 Oumar Gramajo MD RX Dispense Issue [id number] 01/07/2015 01/07/2015 Oumar Gramajo MD RX Dispense Issue [id number] 01/07/2015 01/07/2015 Oumar Gramajo MD RX Dispense Issue [id number]-758d-33x4-72qg1l4h8qlk 01/07/2015 01/07/2015 Oumar Gramajo MD RX Dispense Issue [id number]-k5nki99y1b15 01/07/2015 01/07/2015 Oumar Gramajo MD RX Dispense Issue [id number]-912sxd168y9d 01/07/2015 01/07/2015 Oumar Gramajo MD RX Dispense Issue [id number] 01/07/2015 01/07/2015 Oumar Gramajo MD RX Dispense Issue [id number] 01/07/2015 01/07/2015 Oumar Gramajo MD RX Dispense Issue [id number] 01/07/2015 01/07/2015 Oumar Gramajo MD RX Dispense Issue [id number] 01/07/2015 01/07/2015 Oumar Gramajo MD RX Dispense Issue [id number] 01/07/2015 01/07/2015 Oumar Gramajo MD RX Dispense Issue [id number] 01/07/2015 01/07/2015 Oumar Gramajo MD RX Dispense Issue [id number]-s0h5-02v8vi2rg65v 01/07/2015 01/07/2015 Oumar Gramajo MD RX Dispense Issue [id number] 01/07/2015 01/07/2015 Oumar Gramajo MD Pain Mgmt 665te8i5-w94m-88h5-9715-m26tfsz7eoc7 03/08/2015 03/08/2015 Oumar Gramajo MD Pain Mgmt 9jz486v5-vnu7-1956-r8m4-w2iu4i7x4twy 03/08/2015 03/08/2015 Oumar Gramajo MD Pain Mgmt [id number]-g8u0831451vv 03/08/2015 03/08/2015 Oumar Gramajo MD Pain Mgmt 902x03o9-1n57-5496-v298-4fxe022y89x6 03/08/2015 03/08/2015 Oumar Gramajo MD Pain Mgmt 3o3yj298-n234-4563-3gn1-6z2pym571211 03/08/2015 03/08/2015 Oumar Gramajo MD Pain Mgmt v89w85s0-71pl-5q21-9vl9-06vt723vm102 03/08/2015 03/08/2015 Oumar Gramajo MD Pain Mgmt [id number]-916t6z30i204 03/08/2015 03/08/2015 Oumar Gramajo MD Pain Mgmt 8jl78r30-1341-2q9i-i787-60xu6d8j9j14 03/08/2015 03/08/2015 Oumar Gramajo MD Pain Mgmt f45j8409-64xd-3o0g-3abg-6fd8m9t34483 03/08/2015 03/08/2015 Oumar Gramajo MD Pain Mgmt 2m472u9f-25ws-7052-n884-s7j225l80755 03/08/2015 03/08/2015 Oumra Gramajo MD Pain Mgmt fjy09906-136b-327d-56rh-v2695a119615 03/08/2015 03/08/2015 Oumar Gramajo MD Pain Mgmt 26061gt3-tm03-770u-3h59-3037jao36452 03/08/2015 03/08/2015 Oumar Gramajo MD Pain Mgmt x80z8qs4-7846-917v-te63-89n6260g9e11 03/08/2015 03/08/2015 Oumar Gramajo MD Pain Mgmt 40s50l69-3j8r-0u74-1944-803872x48sq2 03/08/2015 03/08/2015 Oumar Gramajo MD Pain Mgmt y29517s1-70a0-8bk8-7d4w-17axx1a944zq 03/08/2015 03/08/2015 Oumar Gramajo MD Pain Mgmt 8943826n-3949-499o-o923-t4g6r555j110 03/08/2015 03/08/2015 Oumar Gramajo MD Pain Mgmt 8w4ztthg-tu79-90y1-eff7-248457wul198 03/08/2015 03/08/2015 Oumar Gramajo MD Pain Mgmt 8onj9g1a-x352-1252-x770-m5754052808c 03/08/2015 03/08/2015 Oumar Gramajo MD Pain Mgmt 78oc5nxf-em8f-04ko-6g49-8056mm1k98l5 03/08/2015 03/08/2015 Oumar Gramajo MD Refill 7knp2ji3-dmcd-4a66-tz49-i2p40360r1bs 05/11/2015 05/11/2015 Oumar Gramajo MD Refill 555ra440-m547-42gc-z732-4201c7c0bf85 05/11/2015 05/11/2015 Oumar Gramajo MD Refill 5e29pu22-t0pg-63c1-l14p-pk0y8m3948is 05/11/2015 05/11/2015 Oumar Gramajo MD Refill [id number]-p4c4-6y8n8523632r 05/11/2015 05/11/2015 Oumar Gramajo MD Refill 987oc9h9-8008-51pc-9x6u-k6536o912693 05/11/2015 05/11/2015 Oumar Gramajo MD Refill vd8k51dt-9gz1-8z18-3j39-4qf459o0ykyt 05/11/2015 05/11/2015 Oumar Gramajo MD Refill o8o117y2-yy11-2584-409u-25h11o914et4 05/11/2015 05/11/2015 Oumar Gramajo MD Refill c701ex33-e8vl-913j-s62i-m8h6689ip5va 05/11/2015 05/11/2015 Oumar Gramajo MD Refill 742f05u4-bk27-393s-njss-04a0292596c0 05/11/2015 05/11/2015 Oumar Gramajo MD Refill 4p26w5qr-07v0-1149-e3p1-i72v68j7t8m9 05/11/2015 05/11/2015 Oumar Gramajo MD Refill q24wumo8-4503-0k10-5423-59o2f8479h24 05/11/2015 05/11/2015 Oumar Gramajo MD Refill 852fspgv-8y35-1mjd7p39-9tok-r7ey-y8vh38h53148 05/11/2015 05/11/2015 Oumar Gramajo MD Refill 5119esh8-d222-25s9-9k8w-7529cit07217 05/11/2015 05/11/2015 Oumar Gramajo MD Refill 2jl2423u-563x-3489-4f74-vh873c12q5l0 05/11/2015 05/11/2015 Oumar Gramajo MD Refill 149uo15j-s9bg-9z46-g459-a04qq4r87c89 05/11/2015 05/11/2015 Oumar Gramajo MD Refill o0z4p8af-2w5i-85z5-1d01-fo397ddp60b2 05/11/2015 05/11/2015 Oumar Gramajo MD Refill [id number]-9a58-50r9-5w17a23cv0vf 05/11/2015 05/11/2015 Oumar Gramajo MD Refill 08m04641-1x74-25b7-9668-boo5u274444m 05/11/2015 05/11/2015 Oumar Gramajo MD Refill 02118305-5f68-70k3-3pir-wcye4q22qjkj 05/11/2015 05/11/2015 Oumar Gramajo MD RX Request-- Tramadol 5975f28s-h240-4n30-i542-17q408o18697 05/17/2015 05/17/2015 Oumar Gramajo MD RX Request-- Tramadol [id number]-[id number]-qxhw-[id number] 05/17/2015 05/17/2015 Oumar Gramajo MD RX Request-- Tramadol [id number]-ve5x-0461-7xbc-g0bg5d610d21 05/17/2015 05/17/2015 Oumar Gramajo MD RX Request-- Tramadol yjd476i5-2r0u-0qt4-ozuj-45ga9j21d218 05/17/2015 05/17/2015 Oumar Gramajo MD RX Request-- Tramadol t07961k7-7382-6rw3-x895-w8470168hfl5 05/17/2015 05/17/2015 Oumar Gramajo MD RX Request-- Tramadol rl1u723i-9999-0691-0445-20t358y90x14 05/17/2015 05/17/2015 Oumar Gramajo MD RX Request-- Tramadol 2s14u1xk-32zv-63km-f13b-qbu385n2s855 05/17/2015 05/17/2015 Oumar Gramajo MD RX Request-- Tramadol cft8c76g-4416-4302-u79b-57cm1g772yqy 05/17/2015 05/17/2015 Oumar Gramajo MD RX Request-- Tramadol 7096pd7u-1h29-4zo8-546e-bu24v24743h8 05/17/2015 05/17/2015 Oumar Gramajo MD RX Request-- Tramadol 6y143l61-om82-6100-s7eu-k1y8iqhb7sz8 05/17/2015 05/17/2015 Oumar Gramajo MD RX Request-- Tramadol q078645l-1765-53r4-c29f-l51dc363wjw2 05/17/2015 05/17/2015 Oumar Gramajo MD RX Request-- Tramadol [id number]-t212-wa739442y54c 05/17/2015 05/17/2015 Oumar Gramajo MD RX Request-- Tramadol 132108qr-741b-0o80-729u-319a5e5271u5 05/17/2015 05/17/2015 Oumar Gramajo MD RX Request-- Tramadol r801wxdb-7s79-97hy-r6pg-1kf7bm6ws347 05/17/2015 05/17/2015 Oumar Gramajo MD RX Request-- Tramadol 94a18c87-7944-409s-i80u-s2ik53qc15ev 05/17/2015 05/17/2015 Oumar Gramajo MD RX Request-- Tramadol [id number]-719y-5j71-r560y50802p1 05/17/2015 05/17/2015 Oumar Gramajo MD RX Request-- Tramadol 26056p15-5sf7-738m-ewqp-gda0670b97pp 05/17/2015 05/17/2015 Oumar Gramajo MD RX Request-- Tramadol l09ds8z7-e5uw-0635-74v1-79ltyo02c20k 05/17/2015 05/17/2015 Oumar Gramajo MD RX Request-- Tramadol p52x5ob1-j87x-40pk-22to-406s3t660151 05/17/2015 05/17/2015 Oumar Gramajo MD f/u 29m4w499-7945-8317-66k0-840s5a040ku0 06/14/2015 06/14/2015 Oumar Gramajo MD f/u 4g9kw7t6-4482-5776-l364-ay91i945167n 06/14/2015 06/14/2015 Oumar Gramajo MD f/u 95l2190d-g46a-4334-81u7-96n2059823x4 06/14/2015 06/14/2015 Oumar Gramajo MD f/u a1dita9v-z50a-8109-dt1h-9g59a974lg14 06/14/2015 06/14/2015 Oumar Gramajo MD f/u hwz7u92x-73l2-699w-yira-25o205714h1u 06/14/2015 06/14/2015 Oumar Gramajo MD f/u 990i74zf-1k56-5s9m-xx27-8t097g0222o9 06/14/2015 06/14/2015 Oumar Gramajo MD f/u uwjq2hep-5917-13j9-861d-na3hus092034 06/14/2015 06/14/2015 Oumar Gramajo MD f/u 84l00s57-7r57-490t-3449-9i118y4i5m4p 06/14/2015 06/14/2015 Oumar Gramajo MD f/u 3wc60u95-09t9-4535-cst5-ktq2608s684v 06/14/2015 06/14/2015 Oumar Gramajo MD f/u 92r1i577-5z39-2v95-934l-22t90md528w8 06/14/2015 06/14/2015 Oumar Gramajo MD f/u 2b9s3252-4lb4-8bm6-v7ag-2ca0el7ph5t0 06/14/2015 06/14/2015 Oumar Gramajo MD f/u 94e98a87-zj67-33oo-427h-h4f9m64y0wz0 06/14/2015 06/14/2015 Oumar Gramajo MD f/u 6a173750-5528-1rq6-79az-8rz21127554b 06/14/2015 06/14/2015 Oumar Gramajo MD f/u n2a15807-tw7v-7301-1376-r3v8ah7100n8 06/14/2015 06/14/2015 Oumar Gramajo MD f/u tf41y3se-3149-8b18-41sf-8s3v6e0ral5c 06/14/2015 06/14/2015 Oumar Gramajo MD f/u 0r3r5106-r783-2qg1-27s5-441g89x6p8j6 06/14/2015 06/14/2015 Oumar Gramajo MD f/u w4d23e4y-xtgo-4706-1552-264j0x07i3b9 06/14/2015 06/14/2015 Oumar Gramajo MD f/u 3748619u-3490-96he-e73w-9j2d662lzl48 06/14/2015 06/14/2015 Oumar Gramajo MD f/u 6c34704r-8s68-4n5w-d005-78w1gc057piu 06/14/2015 06/14/2015 Oumar Gramajo MD DEXA l9946dn3-5082-059j-f197-3o85vo4465th 07/27/2015 07/27/2015 Oumar Gramajo MD DEXA 18n2j11n-dd2m-1084-i85n-t17x33v408t3 07/27/2015 07/27/2015 Oumar Gramajo MD DEXA g0600h98-3l92-400u-r204-35w811399xle 07/27/2015 07/27/2015 Oumar Gramajo MD DEXA 6050b536-a3p5-5667-t25i-9i031726p039 07/27/2015 07/27/2015 Oumar Gramajo MD DEXA 70je12j5-8244-531n-r826-337cw55c0070 07/27/2015 07/27/2015 Oumar Gramajo MD DEXA 13r8f783-87u4-48e9-f172-5kmva420946v 07/27/2015 07/27/2015 Oumar Gramajo MD DEXA qnt66xj9-t2xk-8b62-6433-8m506s06n1j5 07/27/2015 07/27/2015 Oumar Gramajo MD DEXA 2027611q-6dl5-6042-6515-w16wf670313o 07/27/2015 07/27/2015 Oumar Gramajo MD DEXA m8z86u1k-616o-5m7e-1666-w2c2d4o75217 07/27/2015 07/27/2015 Oumar Gramajo MD DEXA 95z4wg99-9c0n-2h3u-7366-7t837v2m459m 07/27/2015 07/27/2015 Oumar Gramajo MD DEXA 12727b9f-n268-055b-my95-64276678zp3b 07/27/2015 07/27/2015 Oumar Gramajo MD DEXA ay21l15l-n7cx-590k-n21k-9a7yk75g3h5u 07/27/2015 07/27/2015 Oumar Gramajo MD DEXA 939eh91e-55b6-86d6-7181-q01fmc6sv065 07/27/2015 07/27/2015 Oumar Gramajo MD DEXA aqo87dkf-iek0-7id0-1904-541d34932y82 07/27/2015 07/27/2015 Oumar Gramajo MD DEXA 0944cx9z-65nj-7xm8-k803-zi4h28b6xhqc 07/27/2015 07/27/2015 Oumar Gramajo MD DEXA oocch234-8980-7874-m03q-2560462k3039 07/27/2015 07/27/2015 Oumar Gramajo MD DEXA s8uh248q-795m-1j9v-gr23-0379m3wj49ut 07/27/2015 07/27/2015 MD PRAFUL Huang 15n1syqb-oc1u-609j-79zu-7v04x3ncx96w 07/27/2015 07/27/2015 MD PRAFUL Huang 6882n5e6-ygmn-9hr3-761s-v0n7d5r222jr 07/27/2015 07/27/2015 Oumar Gramajo MD f/u 79599835-q68o-435f-963e-6850ib9531p4 10/04/2015 10/04/2015 Oumar Gramajo MD f/u 4972007m-8724-808k-h802-ro6t22696to0 10/04/2015 10/04/2015 Oumar Gramajo MD f/u j5y751om-7f2w-148i-r008-60638mtn486k 10/04/2015 10/04/2015 Oumar Gramajo MD f/u 244c90s2-6j3l-9850-vv29-gg5893zu3763 10/04/2015 10/04/2015 Oumar Gramajo MD f/u 4k1vu4x5-1245-6207-r2x4-h94jo550489d 10/04/2015 10/04/2015 Oumar Gramajo MD f/u 38pb3bwm-1kpp-68ma-e2y3-1n2qut516s76 10/04/2015 10/04/2015 Oumar Gramajo MD f/u 804m1ba9-x244-82pd-6dk3-9a41iht10x15 10/04/2015 10/04/2015 Oumar Gramajo MD f/u 737xq40u-yu0r-09x0-qc67-f259p21s1269 10/04/2015 10/04/2015 Oumar Gramajo MD f/u 947866ei-z625-55r8-4bs2-483ko074416h 10/04/2015 10/04/2015 Oumar Gramajo MD f/u n423j5s7-c8p4-9m85-pwjq-s6j7t78q9j95 10/04/2015 10/04/2015 Oumar Gramajo MD f/u on269se2-1xqk-00n5-m56r-24o80b9z9c3n 10/04/2015 10/04/2015 Oumar Gramajo MD f/u 825f0892-65o7-61i4-1239-459m02zfk735 10/04/2015 10/04/2015 Oumar Gramajo MD f/u e2r055q8-3802-8099-u7w4-e7d8gep60c0y 10/04/2015 10/04/2015 Oumar Gramajo MD f/u 259465m1-25j0-9c97-d71c-0e3u8327o2qv 10/04/2015 10/04/2015 Oumar Gramajo MD f/u y22pk417-evo3-658h-95rd-b3y733c58221 10/04/2015 10/04/2015 Oumar Gramajo MD f/u o46jod60-4m9r-49v2-1236-5005m8l7xx5g 10/04/2015 10/04/2015 Oumar Gramajo MD f/u 7e4sw72y-3ev7-6r99-j5m4-5183y855216s 10/04/2015 10/04/2015 Oumar Gramajo MD labs 374763zg-pev5-9m36-i658-r4547wh047lo 10/04/2015 10/04/2015 Oumar Gramajo MD labs ow153756-195a-3f24-7z81-335y8hm4059g 10/04/2015 10/04/2015 Oumar Gramajo MD labs 8in7540m-i014-5827-7sr5-6o0095909b4s 10/04/2015 10/04/2015 Oumar Gramajo MD labs v1598g8y-43po-34k6-600i-37m2076i5u71 10/04/2015 10/04/2015 Oumar Gramajo MD labs 9s98a101-7h00-6z8g-2928-iik6d4876i7p 10/04/2015 10/04/2015 Oumar Gramajo MD labs [id number]-h6yt-ia84891q1684 10/04/2015 10/04/2015 Oumar Gramajo MD labs e0v978h1-13o5-27q8-i8q6-ytc3eb9325p2 10/04/2015 10/04/2015 Oumar Gramajo MD labs 01r8k69f-p8ba-6eyz-7476-6sfc8d80h675 10/04/2015 10/04/2015 Oumar Gramajo MD labs 988ka21u-9718-8h33-khga-49v015j04wxj 10/04/2015 10/04/2015 Oumar Gramajo MD labs m5h9chg7-a9xr-4os8-450y-4676q546z1i0 10/04/2015 10/04/2015 Oumar Gramajo MD labs 489wvhi7-uu36-1y17-u795-sq80nj5615q9 10/04/2015 10/04/2015 Oumar Gramajo MD labs f3mc8127-w48j-8308-1304-90yk58ibzgn2 10/04/2015 10/04/2015 Oumar Gramajo MD labs 2753473k-6bs7-146q-n7o0-et4u2md182i1 10/04/2015 10/04/2015 Oumar Gramajo MD labs 6709828w-1278-210e-d808-9mils2580u0z 10/04/2015 10/04/2015 Oumar Gramajo MD labs 472637y0-mat1-2323-1tod-l80f3x74vubu 10/04/2015 10/04/2015 Oumar Gramajo MD labs be5a1633-29x6-3t05-pg83-sk15549sdl0j 10/04/2015 10/04/2015 Oumar Gramajo MD labs 7359r30f-7x25-7989-uats-z657b431893m 10/04/2015 10/04/2015 Oumar Gramajo MD labs 8e8d813f-07s9-0i6w-863b-1b57st7id0m6 10/04/2015 10/04/2015 Oumar Gramajo MD Refill- Ultram cy69u1f9-q175-5aa8-6091-d17k9cxx54h0 12/15/2015 12/15/2015 Oumar Gramajo MD Refill- Ultram 6008jufu-l365-3yr6b032-7lt3-44ez-vq107c424g6a 12/15/2015 12/15/2015 Oumar Gramajo MD Refill- Ultram me388267-84r1-90z8-y117-v0696p3pe4d4 12/15/2015 12/15/2015 Oumar Gramajo MD Refill- Ultram 950h9749-q145-83q2-d023-671pk785l751 12/15/2015 12/15/2015 Oumar Gramajo MD Refill- Ultram 52286hx9-31h6-2i90-k9zh-7j18dej47w51 12/15/2015 12/15/2015 Oumar Gramajo MD Refill- Ultram p4hie618-3c4d-3620-947n-6h6y814td755 12/15/2015 12/15/2015 Oumar Gramajo MD Refill- Ultram h832ing2-67io-1i1o-qo17-b0x291h45820 12/15/2015 12/15/2015 Oumar Gramajo MD Refill- Ultram 9f540wnf-n1pq-36y8-bv67-8b03f7qb8tnb 12/15/2015 12/15/2015 Oumar Gramajo MD Refill- Ultram 595xos9s-m03u-0486-4904-03hg3c01t085 12/15/2015 12/15/2015 Oumar Gramajo MD Refill- Ultram 03e3854j-66b6-5b04-a3x4-627o389wsj08 12/15/2015 12/15/2015 Oumar Gramajo MD Refill- Ultram 3876r8w1-005t-690g-ad18-401am75j3xhq 12/15/2015 12/15/2015 Oumar Gramajo MD Refill- Ultram 45777u42-e1po-0951-g7w1-525qy7822np0 12/15/2015 12/15/2015 Oumar Gramajo MD Refill- Ultram tb72h3d3-v2y2-205e-7230-4yw126q54832 12/15/2015 12/15/2015 Oumar Gramajo MD Refill- Ultram 9g63g2e3-f5f5-1613-9yfo-476hbi13msci 12/15/2015 12/15/2015 Oumar Gramajo MD Refill- Ultram ui186h84-316x-9ii7-1023-297e4416887d 12/15/2015 12/15/2015 Oumar Gramajo MD Refill- Ultram 27z76n36-o499-6c2s-5vi3-3m335e1847oh 12/15/2015 12/15/2015 Oumar Gramajo MD 3 MTH FU -4c13-8163-i853-4mud6357a64r 01/05/2016 01/05/2016 Oumar Gramajo MD 3 MTH FU 09148133-x7as-0yv7-d425-736tgd880on1 01/05/2016 01/05/2016 Oumar Gramajo MD 3 MTH FU 4454m741-0xq5-00zs-snh9-618iz71bq9g5 01/05/2016 01/05/2016 Oumar Gramajo MD 3 MTH FU lj8n0127-z2o9-2x40-b69t-611350r8t368 01/05/2016 01/05/2016 Oumar Gramajo MD 3 MTH FU h64ae49a-i36i-9ihb-5572-x7eeg9zg9u66 01/05/2016 01/05/2016 Oumar Garmajo MD 3 MTH FU tektk402-o86l-633t-h613-26zc8bmq1t4n 01/05/2016 01/05/2016 Oumar Gramajo MD 3 MTH FU qm4l5q6z-276l-7q75-xu8q-36dh24386ha3 01/05/2016 01/05/2016 Oumar Gramajo MD 3 MTH FU 5b023zz5-7524-4czl-tl61-a2a8ole4n067 01/05/2016 01/05/2016 Oumar Gramajo MD 3 MTH FU 840b9n4o-p478-129l-53v4-379qm5p2mn34 01/05/2016 01/05/2016 Oumar Gramajo MD 3 MTH FU y6350n33-0125-9p9k-9s9m-m692wb8252m3 01/05/2016 01/05/2016 Oumar Gramajo MD 3 MTH FU t5l33mzh-2272-53b7-p9k0-6798y6f9z4c1 01/05/2016 01/05/2016 Oumar Gramajo MD 3 [facility] 62u832y9-hk1g-0194-60i3-8gq3715b6r5o 01/05/2016 01/05/2016 Oumar Gramajo MD 3 [facility] wf77gxh2-b886-501v-3owc-02f0ph408l17 01/05/2016 01/05/2016 Oumar Gramajo MD 3 [facility] [id number]-ew48-s0y4l4svr1bb 01/05/2016 01/05/2016 Oumar Gramajo MD 3 [facility] 324d0c5b-r3i0-608t-se5r-8wrt8l691b46 01/05/2016 01/05/2016 Oumar Gramajo MD tramadol 2k2025pm-009b-6z07-r2k5-zi549k14l7xp 03/28/2016 03/28/2016 Oumar Gramajo MD tramadol 7e683503-e0i4-4ki9-i226-mqo933hd00l8 03/28/2016 03/28/2016 Oumar Gramajo MD tramadol 15py1973-v5g2-68mh-p6z9-86937s0t2yu6 03/28/2016 03/28/2016 Oumar Gramajo MD tramadol y6ad3t9w-57g4-61wk-l3al-v73809001l4l 03/28/2016 03/28/2016 Oumar Gramajo MD tramadol 701u2142-66k9-50gx-5r5a-blr4o0qdn6g4 03/28/2016 03/28/2016 Oumar Gramajo MD tramadol 594slx6y-eh61-9h5x-3227-27m9fj16d7j0 03/28/2016 03/28/2016 Oumar Gramajo MD tramadol e6431k7i-8l26-43i2-m37v-7317m6862lhg 03/28/2016 03/28/2016 Oumar Gramajo MD tramadol xqv474ky-5016-984c-c708-0830wi7nt0z8 03/28/2016 03/28/2016 Oumar Gramajo MD tramadol 874t610c-3a62-2172-j5i5-f4ktk4tt8c99 03/28/2016 03/28/2016 Oumar Gramajo MD tramadol 33k7874s-s79f-6lnw-0o30-q9731i83p148 03/28/2016 03/28/2016 Oumar Gramajo MD tramadol 815z8ikx-o9d3-5zk8-0652-8820ev73ps15 03/28/2016 03/28/2016 Oumar Gramajo MD tramadol h22o9883-g98i-2885-9gif-23pfuo4mz8a8 03/28/2016 03/28/2016 Oumar Gramajo MD tramadol 52cm6g3g-c2rj-512h-742t-09462h6i8847 03/28/2016 03/28/2016 Oumar Gramajo MD tramadol 04mi78g2-715c-7v9m-3t23-6qb74b1t799e 03/28/2016 03/28/2016 Oumar Gramajo MD MRI 09s04t48-4qo9-69b5-dnk7-be80ny070ne1 03/29/2016 03/29/2016 Oumar Gramajo MD MRI [id number]-tt20-46160qv57368 03/29/2016 03/29/2016 Oumar Gramajo MD MRI 5y1s4365-87e3-9d6y-8qym-6271746a0u02 03/29/2016 03/29/2016 Oumar Gramajo MD MRI 29r80x70-22cd-64r9-3a09-ei934tn420lg 03/29/2016 03/29/2016 Oumar Gramajo MD MRI uv07hbo2-8674-423d-080p-5t98zp59vzeg 03/29/2016 03/29/2016 Oumar Gramajo MD MRI 7pnd19i1-6510-83ww-7tg0-p987mtfmu3s0 03/29/2016 03/29/2016 Oumar Gramajo MD MRI 55r143c7-6305-768c-384z-879u31be559h 03/29/2016 03/29/2016 Oumar Gramajo MD MRI 218jc1fy-50x8-6ghn-krz4-22ch0sp3l9p9 03/29/2016 03/29/2016 Oumar Gramajo MD MRI xd838wvi-07sv-9310-2qmp-384852xo1r25 03/29/2016 03/29/2016 Oumar Gramajo MD MRI 07dny561-59x5-93d0-1157-48ma880bxhyi 03/29/2016 03/29/2016 Oumar Gramajo MD MRI 4e1j627c-8pd2-0508-nh4n-u3d32216rr10 03/29/2016 03/29/2016 Oumar Gramajo MD MRI 9d485es9-zuz1-1i1j-1ca2-yk9y5i7812r1 03/29/2016 03/29/2016 Oumar Gramajo MD MRI [id number]-lgf3-5fip-2397-nv7x8723a45j 03/29/2016 03/29/2016 Oumar Gramajo MD 3 MTH FU 9s90z9w1-8h77-2889-72z8-36glftrjow70 04/18/2016 04/18/2016 Oumar Gramajo MD 3 MTH FU u5t9y8c2-64z5-32ny-9e2l-1edl577xi5av 04/18/2016 04/18/2016 Oumar Gramajo MD 3 MTH FU z0s3c48e-p580-6107-g88q-r158nxzqf395 04/18/2016 04/18/2016 Oumar Gramajo MD 3 MTH FU 96o85i2t-vj48-7m93-559n-uh1129647k92 04/18/2016 04/18/2016 Oumar Gramajo MD 3 MTH FU 05y05st9-1d4y-7671-7n2l-4qt369p97305 04/18/2016 04/18/2016 Oumar Gramajo MD 3 MTH FU aj90pmg0-v5x4-76lh-38f3-s6g385905q89 04/18/2016 04/18/2016 Oumar Gramajo MD 3 MTH FU 1pq123nx-8t6m-3677-52bd-07er3328j564 04/18/2016 04/18/2016 Oumar Gramajo MD 3 MTH FU 09iy7987-0843-80d9-9454-47603329d33s 04/18/2016 04/18/2016 Oumar Gramajo MD 3 MTH FU 9812z858-4289-281x-8i37-9337ibg2n3b7 04/18/2016 04/18/2016 Oumar Gramajo MD 3 MTH FU [id number]-4252-6391-z726-79329e888487 04/18/2016 04/18/2016 Oumar Gramajo MD 3 MTH FU 11ip72qn-969g-7d9r-owa3-9r9145q867v5 04/18/2016 04/18/2016 Oumar Gramajo MD 3 MTH FU 2us87g2t-766h-48y7-d6a1-o5f5766366t1 04/18/2016 04/18/2016 Oumar Gramajo MD [facility] rx 9gp4op72-8ko0-752w-b0s5-0761446xlqt9 04/20/2016 04/20/2016 MD adia Huangdulce rx tc7z6w43-r472-5xhd-3u90-k1y9m851m429 04/20/2016 04/20/2016 MD adia Huangdulce rx 4972196u-8n60-0qn8-tv4s-n175ai56lagb 04/20/2016 04/20/2016 MD adia Huangdulce rx 91z9xsh8-4zui-167n-f4ns-3236ue391jgi 04/20/2016 04/20/2016 Oumar Gramajo MD [facility] rx [id number]-wc6e-44228j196ru9 04/20/2016 04/20/2016 MD adia Huangdulce rx 142232xz-j3f3-4g57-dub1-636q33r4v8z3 04/20/2016 04/20/2016 Oumar Gramajo MD [facility] rx [id number]-ry78-2654-0rs1-06j145252111 04/20/2016 04/20/2016 MD adia Huangdulce rx [id number]-8qha-f419-f10izyc3sw9b 04/20/2016 04/20/2016 MD adia Huangdulce rx n71t3110-j3j3-951e-klu5-20680216fzf7 04/20/2016 04/20/2016 MD adia Huangdulce rx rd3ddd41-0vq5-68d0-it6v-4n342e46s4af 04/20/2016 04/20/2016 Oumar Gramajo MD [facility] rx [id number]-964j-9dhh0375c35e 04/20/2016 04/20/2016 Oumar Gramajo MD [facility] rx [id number]-460i-7yi8-uor8tyqp8v6b 04/20/2016 04/20/2016 Oumar Gramajo MD Refill- Tramadol 98s884n7-ki2v-4km6-v543-f5jmj9fd2shq 07/04/2016 07/04/2016 Oumar Gramajo MD Refill- Tramadol 8jd82446-5cc6-4801-0wn0-9v87g808om73 07/04/2016 07/04/2016 Oumar Gramajo MD Refill- Tramadol k4b4qj5i-2w99-433u-1p14-ol33627r6g2w 07/04/2016 07/04/2016 Oumar Gramajo MD Refill- Tramadol 2z3rg43v-5mf4-5132-478f-m4k2v89wi17p 07/04/2016 07/04/2016 Oumar Gramajo MD Refill- Tramadol 409i49oa-808k-211f-wa6s-r2366rbavii1 07/04/2016 07/04/2016 Oumar Gramajo MD Refill- Tramadol 69tg9jla-9o16-3795-0069-j0e9861357rf 07/04/2016 07/04/2016 Oumar Gramajo MD Refill- Tramadol 1u1p4331-7b2y-9oe3-o769-4f903p510qb0 07/04/2016 07/04/2016 Oumar Gramajo MD Refill- Tramadol 06n3353g-97m0-55xo-2a93-uqe08m373e1a 07/04/2016 07/04/2016 Oumar Gramajo MD Refill- Tramadol 83717f15-z0m6-9b45-54v4-5e18118w0725 07/04/2016 07/04/2016 Oumar Gramajo MD Refill- Tramadol kh480u0s-0a7u-1i14-6an5-7314b625640j 07/05/2016 07/05/2016 Oumar Gramajo MD Refill- Tramadol r4xh32jv-1eqi-874k-7135-qwy8wwb408l9 07/05/2016 07/05/2016 Oumar Gramajo MD Refill- Tramadol 0a6ai126-2441-2685-5732-944v92195u57 07/05/2016 07/05/2016 Oumar Gramajo MD Refill- Tramadol 27120m7p-6397-8lhe-6l1y-h62124l822m6 07/05/2016 07/05/2016 Oumar Gramajo MD Refill- Tramadol 3396yr65-41fj-2qia-u551-c5xse61mn2q3 07/05/2016 07/05/2016 Oumar Gramajo MD Refill- Tramadol w5s65w2h-z7i2-3u77-d823-p6bc91e38afe 07/05/2016 07/05/2016 Oumar Gramajo MD Refill- Tramadol 36af5n64-6224-733u-8253-81ms22d694k9 07/05/2016 07/05/2016 Oumar Gramajo MD Refill- Tramadol 2k99c05h-8uxy-108e-c363-0srn81w06746 07/05/2016 07/05/2016 MD OSCAR Huang APPT 07/18/16 621jd700-b4ve-7nsj-p024-6endg1t60xwp 07/18/2016 07/18/2016 MD OSCAR Huang APPT 07/18/16 6xpvkj9t-0932-6536-nj70-pk2529nj6019 07/18/2016 07/18/2016 Oumar Gramajo MD NS APPT 07/18/16 e065h96s-4597-7h15-8yy2-2o8371g1291y 07/18/2016 07/18/2016 Oumar Gramajo MD NS APPT 07/18/16 2t3o33fe-9s74-131z-r6r1-6ht89069pmy7 07/18/2016 07/18/2016 Oumar Gramajo MD NS APPT 07/18/16 55f7y926-7wg6-5es0-a096-d890k83y93h0 07/18/2016 07/18/2016 Oumar Gramajo MD NS APPT 07/18/16 35o3grw1-5p45-8b89-2vi5-760mohx248mh 07/18/2016 07/18/2016 Oumar Gramajo MD NS APPT 07/18/16 44l3qt8l-323x-3742-uu4l-558j7wzd83x3 07/18/2016 07/18/2016 Oumar Gramajo MD 3 MTH FU 6kh5j428-21cj-6v47-4sud-rg6v2jyna2oo 08/08/2016 08/08/2016 Oumar Gramajo MD 3 MTH FU 0bo6b4pk-36s8-5j92-ym86-d86blb1qxd9r 08/08/2016 08/08/2016 Oumar Gramajo MD 3 MTH FU mex08471-ry8d-3248-1s70-q71716s0g467 08/08/2016 08/08/2016 Oumar Gramajo MD 3 MTH FU 832371md-w479-06h2-o04d-q4641ad19dl0 08/08/2016 08/08/2016 Oumar Gramajo MD 3 MTH FU 815vhgl0-pzmn-423m-gi76-963p77k2fom5 08/08/2016 08/08/2016 Oumar Gramajo MD 3 MTH FU b9jgl726-18o8-100z-z6x0-362s684w3zak 08/08/2016 08/08/2016 Oumar Gramajo MD TRAMADOL REFILL 4s1qrc80-14u0-9p8g-5761-f80jxt9q56p1 09/27/2016 09/27/2016 Oumar Gramajo MD TRAMADOL REFILL 46088k26-p3n1-4d3l-9t89-0m818389oj63 09/27/2016 09/27/2016 Oumar Gramajo MD TRAMADOL REFILL 593p4v63-idg1-43ur-2qk3-x1c21u68t7xg 09/27/2016 09/27/2016 Oumar Gramajo MD TRAMADOL REFILL 557jpln4-6k55-9s18-i13n-hmw18531223h 09/27/2016 09/27/2016 Oumar rGamajo MD Refill- Tramadol 25p4041d-5035-5cb3-925d-636982c3628j 10/25/2016 10/25/2016 Oumar Gramajo MD Refill- Tramadol 83576d4y-3434-67vg-f204-693b5c895510 10/25/2016 10/25/2016 Oumar Gramajo MD Refill- Tramadol g0gv6d17-h35g-3ul5-0o42-1843l3545624 10/25/2016 10/25/2016 Oumar Gramajo MD 94q6s979-d693-8xv7-h952-qqngm9786209 12/17/2016 12/17/2016 Oumar Gramajo MD 328gbtvz-617q-4925-9863-618ej982b98w 12/17/2016 12/17/2016 Oumar Gramajo MD 260c7993-z89j-204g-hn89-h56598g17rxa 12/18/2016 12/18/2016 Oumar Gramajo Procedures Procedure Code Date Perfomer Comments Source
--- OUTSIDE RECORDS SUMMARY | 2018-09-12 07:11 | XMS REPORT ---
Author Author Preston Gramajo [facility] eClinicalWorks Address Unknown Phone Unavailable Care Team Providers Care Art Appraiser Name Role Phone Preston Gramajo CP Unavailable Allergies No Known Allergies Problems Problem Type Condition Code Onset Dates Condition Status Problem Shoulder pain, left M25.512 Active Problem Pain in right shoulder M25.511 Active Problem Rheumatoid arthritis of multiple sites without rheumatoid factor M06.09 Active Problem Cigarette nicotine dependence, uncomplicated F17.210 Active Problem Trochanteric bursitis of left hip M70.62 Active Problem Vitamin D deficiency, unspecified E55.9 Active Problem Trochanteric bursitis, right hip M70.61 Active Problem Right shoulder pain M25.511 Active Problem Other skilled nursing (current) drug therapy Z79.899 Active Problem Age-related osteoporosis without current pathological fracture M81.0 Active Problem Primary osteoarthritis involving multiple joints M15.0 Active Medications Medication Code System Code Instructions Start Date End Date Status Dosage [facility] 77219724110 5 MG Orally Once a day Sep 08, 2018 Active 1 tablet Results No Known Results Summary Purpose eClinicalWorks Submission
--- OUTSIDE RECORDS SUMMARY | 2018-09-12 07:11 | XMS REPORT ---
Author Author Abida Ma [facility] eClinicalWorks Address Unknown Phone Unavailable Care Team Providers Care Physical Sciences Professor Name Role Phone Abida Ma Unavailable Allergies, Adverse Reactions, Alerts Substance Reaction Event Type Imuran Info Not Available Non Drug Allergy Sulfasalazine Info Not Available Non Drug Allergy Plaquenil Info Not Available Non Drug Allergy Problems Problem Type Condition Code Onset Dates Condition Status Problem Shoulder pain, left M25.512 Active Problem Pain in right shoulder M25.511 Active Problem Rheumatoid arthritis of multiple sites without rheumatoid factor M06.09 Active Problem Trochanteric bursitis of left hip M70.62 Active Problem Vitamin D deficiency, unspecified E55.9 Active Problem Trochanteric bursitis, right hip M70.61 Active Problem Right shoulder pain M25.511 Active Problem 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 Z79.899 Active Problem Age-related osteoporosis without current pathological fracture M81.0 Active Problem Primary osteoarthritis involving multiple joints M15.0 Active Assessment terminal clerk current use of opiate analgesic Z79.891 Active Assessment Other long-term (current) drug therapy Z79.899 Active Assessment Rheumatoid arthritis of multiple sites without rheumatoid factor M06.09 Active Assessment Age-related osteoporosis without current pathological fracture M81.0 Active Problem Cigarette nicotine dependence, uncomplicated F17.210 Active Medications Medication Code System Code Instructions Start Date End Date Status Dosage Fosamax [facility] 93901475998 70 MG Orally once a week Sep 02, 2018 Dec 01, 2018 Active 1 tablet Coumadin ND 42972842082 2 MG Orally once a day Active 1 tablet Meloxicam ND 16797053700 7.5 MG Orally Once a day Dec 01, 2018 Active 1 tablet PredniSONE ND 60773139492 5 MG Orally Once a day June 02, 2018 Sep 02, 2018 Inactive 1 tablet Benazepril HCl ND 74061068290 20 MG Orally Once a day Active 1 tablet Pravastatin Sodium ND 80571375282 20 MG Orally Once a day Active 1 tablet Trevon ND 21835286453 5mg once a day Sep 02, 2018 Dec 01, 2018 Active as directed Tramadol HCl [facility] 65916834508 50MG Orally every 6 hrs Dec 01, 2018 Active 2 tablets Vital Signs Date/Time: Sep 02, 2018 BMI 36.10 Index Weight 197.4 lbs Height 62 in Temperature 99.4 F Cardiac Monitoring Heart Rate 96 /min Blood Pressure Diastolic 68 mm Hg Blood Pressure Systolic 132 mm Hg Results No Known Results Summary Purpose eClinicalWorks Submission
[2018-09-12] MEDS ORDERED: ALBUTEROL SULF 0.083% NEB SOLN 3 ML NEB NEB STA (07:28)
[2018-09-12] MEDS ORDERED: IPRATROPIUM BROMIDE 0.02% 2.5 ML NEB NEB STA (07:28)
[2018-09-12] MEDS ORDERED: ASPIRIN 81 MG CHEW TAB PO ONE (07:30)
[2018-09-12 07:54] LABS: ALANINE AMINOTRANSFERASE 21 IU/L (0-55); ALBUMIN 3.4 g/dL (3.5-5.0); ALBUMIN/GLOBULIN RATIO 0.9 (0.8-2.0); ALKALINE PHOSPHATASE 114 IU/L (40-150); ANION GAP 16.2 mmol/L (8-16); BLOOD UREA NITROGEN 17 mg/dL (7-26); BUN/CREATININE RATIO 20 (6-25); CALCIUM 9.7 mg/dL (8.4-10.2); CARBON DIOXIDE 29 mmol/L (22-29); CHLORIDE 103 mmol/L (98-107); CREATINE KINASE 97 IU/L (29-168); CREATININE, SERUM 0.86 mg/dL (0.57-1.11); EST GLOMERULAR FILTRATION RATE > 60 ML/MIN (60-); GLUCOSE 117 mg/dL (74-118); POTASSIUM 4.2 mmol/L (3.5-5.1); SODIUM 144 mmol/L (136-145)
[2018-09-12 07:55] LABS: BASOPHILS # (AUTO) 0.1 (0.0-0.1); BASOPHILS % 0.4 % (0.0-1.0); EOSINOPHILS # (AUTO) 0.2 (0.0-0.4); EOSINOPHILS % 1.3 % (0.0-6.0); HEMATOCRIT 45.7 % (34.2-44.1); HEMOGLOBIN 14.6 g/dL (12.0-16.0); LYMPHOCYTES # (AUTO) 4.8 (1.0-3.2); LYMPHOCYTES % 29.3 % (18.0-39.1); MEAN CORPUSCULAR HEMOGLOBIN 31.7 pg (28-32); MEAN CORPUSCULAR HGB CONC 31.9 g/dL (31-35); MEAN CORPUSCULAR VOLUME 99.1 fL (81-99); MONOCYTES # (AUTO) 1.6 (0.2-0.8); MONOCYTES % 9.6 % (4.4-11.3); NEUTROPHILS # (AUTO) 9.6 (2.1-6.9); NEUTROPHILS % 58.8 % (38.7-80.0); PLATELET COUNT 308 x10e3/uL (140-360); RED BLOOD COUNT 4.61 x10e6/uL (3.6-5.1); RED CELL DISTRIBUTION WIDTH 15.9 % (11.7-14.4)
[2018-09-12] MEDS ORDERED: METHYLPREDNISOLONE SOD SUCC 125 MG/2ML VIAL IV ONE (08:00)
--- NOTE | 2018-09-12 08:45 | Diagnostic Imaging Report ---
PROCEDURE: CHEST SINGLE (PORTABLE) COMPARISON: 06/29/2018. INDICATIONS: SHORTNESS OF BREATH FINDINGS: Lungs remain hyperinflated. Stable right apical pleural-parenchymal scarring. Atherosclerotic calcification of the thoracic aorta with stable heart size. Increased prominence of the pulmonary interstitium relative to the prior examination. Trace left pleural effusion is suspected. Patchy opacities in the left midlung. No additional consolidations. No acute osseous abnormality. CONCLUSION: Findings suggestive of interstitial pulmonary edema with a trace left pleural effusion. More focal opacity in the left mid lung and may reflect asymmetric edema or superimposed pneumonia in the correct clinical setting. Dictated by: Heath Pacheco M.D. on 09/12/2018 at 8:53 Electronically approved by: Heath Pacheco M.D. on 09/12/2018 at 8:53
[2018-09-12 09:12] LABS: ABG PCO2 53 mmHg (41-51); ABG PH 7.33 (7.31-7.41); ABG PO2 65 mmHg (80-105)
[2018-09-12 09:13] LABS: ABG HCO3 28 mmol/L (23-28)
[2018-09-12] MEDS ORDERED: AZITHROMYCIN 500MG/SOD CHL 0.9% 250ML BAG IV SCH (09:15)
[2018-09-12] MEDS ORDERED: AZITHROMYCIN 500MG/NS 250 ML 250 ML IV ONE (09:30)
[2018-09-12] MEDS ORDERED: CEFTRIAXONE SOD 1 GM VIAL IV SCH (10:00)
[2018-09-12 10:09] LABS: CREATINE KINASE MB 2.8 ng/mL (0-5.0)
[2018-09-12 10:49] LABS: ANISOCYTOSIS SLIGHT; BAND NEUTROPHILS % (MANUAL) 1 %; EOSINOPHILS % (MANUAL) 1 % (0-7); LYMPHOCYTES % (MANUAL) 30 % (19-48); MONOCYTES % (MANUAL) 11 % (3.4-9.0); NEUTROPHILS % (MANUAL) 56 % (40-74); PLATELET ESTIMATE ADEQUATE; PLATELET MORPHOLOGY COMMENT NORMAL; RBC MORPHOLOGY COMMENT NORMAL
[2018-09-12] MEDS ORDERED: CEPACOL SORE THROAT LOZENGES PO PRN ×2 (11:30)
[2018-09-12] MEDS ORDERED: TRAMADOL HCL 50 MG TAB PO PRN (12:00)
[2018-09-12] MEDS ORDERED: FUROSEMIDE INJ 10 MG/ML 2 ML VIAL IV ONE (13:00)
--- NOTE | 2018-09-12 14:18 | History and Physical ---
CHIEF COMPLAINT: Cough and dyspnea. HISTORY OF PRESENT ILLNESS: The patient is a 73-year-old woman. She has a history of pulmonary embolism in 2013 with a subsequent DVT later that year. She has been on anticoagulation since that time. She also has a history of COPD with some recurrent wheezing and congestion. She comes in complaining of persistent cough. She notices some rhinorrhea and some nasal congestion. There is some wheezing. She has some dyspnea. There is no pain in her chest. She has no fevers. PAST SURGICAL HISTORY 1. Status post back surgery in 2007 and again in 2018. 2. Status post knee replacement. SOCIAL HISTORY: The patient quit smoking. She is not an active drinker. FAMILY HISTORY: The patient has a family history of strokes. Her father had cancer. ALLERGIES: THERE ARE NO KNOWN DRUG ALLERGIES. REVIEW OF SYSTEMS: There is no history of fevers. She is not having any headache or neck pain. She does have some rhinorrhea and some nasal congestion. She has some wheezing. She does not complain of chest pain. There is no abdominal pain. She has no nausea or vomiting. She does have some leg swelling. PHYSICAL EXAMINATION VITAL SIGNS: The patient is afebrile. The blood pressure is 125/51 and the heart rate is 111. HEENT: Shows no facial swelling or erythema. The nasal mucosa is normal. LYMPHATIC: Shows no submandibular, cervical or supraclavicular adenopathy. CARDIAC: Reveals regular rate and rhythm with a normal S1 and S2. RESPIRATORY: Auscultation of lungs reveals some rhonchorous breath sounds bilaterally. There is some wheezing on expiration. ABDOMEN: Soft and nontender. There is no rebound or guarding. EXTREMITIES: Shows 1+ edema. SKIN: Shows no rashes. NEUROLOGICAL: Shows no focal abnormalities. LABORATORY DATA: The BUN/creatinine ratio is normal. The other LFTs and electrolytes are within normal limits. White blood cell count is 16.3 with hemoglobin of 14.6 and platelet count of 308. Blood gases 7.33, 53, 65 and 28. RADIOGRAPHIC DATA: Chest x-ray shows interstitial pulmonary edema and a small left pleural effusion. There is atelectasis in the left lung. IMPRESSION 1. Chronic obstructive pulmonary disease with acute exacerbation. 2. Left lower lobe infiltrate. 3. Possible congestive heart failure. 4. History of pulmonary emboli. PLAN 1. Patient will have an echocardiogram along with the cardiology evaluation. 2. Patient will receive a small dose of Lasix. 3. Solu-Medrol and antibiotics. 4. Bronchodilators. 5. Cough suppressants. 6. Continue warfarin for anti coagulation. Job#: [id number] ALEXANDRA
[2018-09-12 15:04] VITALS: BP 132/68
[2018-09-12] MEDS ORDERED: FUROSEMIDE INJ 10 MG/ML 4 ML VIAL IV ONE (16:15)
[2018-09-12 16:33] VITALS: BP 115/56
[2018-09-12] MEDS: GUAIFENESIN/CODEINE 10 ML CUP PO PRN (16:53)
[2018-09-12] MEDS: FLUTICASONE PROPIONATE NASAL SPRAY NS SCH (17:00)
[2018-09-12] MEDS: AZELASTINE HCL 137 MCG NASAL SPRAY NS SCH (17:00)
[2018-09-12 19:05] VITALS: BP 137/71
[2018-09-12 19:09] LABS: INR 1.84; PROTHROMBIN TIME 22.7 seconds (11.9-14.5)
[2018-09-12] MEDS: METHYLPREDNISOLONE SOD SUCC 40 MG/ML VIAL IV SCH (20:51)
[2018-09-12 21:10] VITALS: BP 137/71
[2018-09-12 21:11] VITALS: BP 137/71
[2018-09-13] VITALS (8 sets, daily range): BP systolic 133–150; BP diastolic 62–74
--- NOTE | 2018-09-13 01:05 | Consultation ---
DATE OF CONSULTATION: September 12, 2018 CARDIOLOGY CONSULTATION REASON FOR CONSULTATION: Evaluate cardiac status. HISTORY OF PRESENT ILLNESS: Ms. Spann is a 73-year-old lady with past medical history of hypertension, hypercholesterolemia, COPD, emphysema, current 1-pack per day smoker, rheumatoid arthritis, off and on steroid therapy, remote history of recurrent DVT and PE x3 with last diagnosed PE in October of 2014, on chronic anticoagulation therapy with Coumadin and history of moderate CAD on last heart catheterization on March 22, 2016 showing 40% LAD and 40% to 50% proximal RCA lesion with EF of about 70%. The patient came in to this institution with recurrent shortness of breath, wheezing, malaise and cough productive of yellowish and early green sputum. She reports similar to multiple prior hospitalizations where she has been diagnosed with COPD exacerbations. The patient denies any chest pain per se, reports 2-pillow use. No PND and denies any leg pain or lower extremity edema. The patient reports compliance with her home medical regimen and just reports could not catch her breath at rest and hence can bring her to the hospital. She is well followed by Dr. Rodriguez for her lung issues and appreciate his aid in management. The patient's chest x-ray was checked and revealed questionable changes of interstitial pulmonary edema and a trace left pleural effusion; hence, Cardiology was consulted for evaluation. PAST MEDICAL HISTORY 1. Hypertension, essential. 2. Hypercholesterolemia. 3. Severe COPD, followed by Dr. Rodriguez. 4. Rheumatoid arthritis, diagnosed in 1995. 5. History of recurrent DVT and PE, on chronic anticoagulant therapy, last PE in October of 2014. 6. Smoker in the 1960s, current 1-pack per day smoker. 7. Coronary artery disease, moderate 40% LAD and 40% proximal RCA on last heart cath on March 22, 2016. PAST SURGICAL HISTORY: 1. History of cholecystectomy in . 2. History of hysterectomy in . 3. History of right total knee replacement surgery in 2005. 4. History of tonsillectomy in . 5. History of pancreatic tumor removal and colonic surgery in 2014. FAMILY HISTORY: Mother in her 90s has heart failure. Father in his 70s with colon cancer. Had 2 heart attacks. One brother in his 60s, had lung, liver and spinal cancer. Had a history of heart attack. SOCIAL HISTORY: She is . She is a current 1-pack per day smoker. Denies any alcohol or illicit drug use. She is currently retired. ALLERGIES: No known drug allergies. HOME MEDICATIONS: See electronic medical record and review. Briefly she is on Coumadin, benazepril, pravastatin, sulfasalazine, Ultram and off and on prednisone. REVIEW OF SYSTEMS GENERAL: Denies any fevers, chills, or any weight changes. HEENT: Has off and on headaches. No visual complaints. Does report sore throat and stuffy nose. RESPIRATORY: Positive for exertional dyspnea and cough as productive as per HPI and chronic lung debility. CARDIOVASCULAR: Denies any chest pain, 2-pillow use. No PND. GI: Reports poor appetite, occasional constipation. No diarrhea, bright red blood per rectum, melena, or hematemesis. HEMATOLOGY: Positive for easy bleeding. : Denies any urinary frequency, pyuria, or hematuria. MUSCULOSKELETAL: Has chronic back pain, knee pains, and trace swelling in her legs left more than right and chronic achiness in her legs. SKIN: No rashes. NEUROLOGIC: Has generalized weakness, but no seizures, history of TIA or stroke. PSYCH: No nervousness, obsessions or compulsions. Remainder of the review of systems is negative otherwise as mentioned. PHYSICAL EXAMINATION VITAL SIGNS: Height of 65 inches, weight of 202 pounds, BMI of 33.6, temperature of 98.8, pulse of 92, respiratory rate of 22, blood pressure 132/68, on 2 liters nasal cannula saturating at 98%. GENERAL: This is a chronically ill-appearing lady, who is unable to complete full sentences, which currently in mild respiratory difficulty. HEENT: Normocephalic and atraumatic. Pupils are equal, round and reactive to light. Extraocular movements are intact. Oropharynx is clear. NECK: Obese, difficult to exam. No carotid bruits. Difficult to ascertain for jugular venous pulsation. CARDIOVASCULAR: Distant heart sounds. Regular rate and rhythm. Soft 2/6 systolic murmur in the left lower sternal border. LUNGS: Show poor airflow throughout. Lung cordero show adventitious breath sounds, rhonchi and diminished air entry. ABDOMEN: Soft, nontender, and obese. Normoactive bowel sounds. No hepatosplenomegaly. BACK: No costovertebral angle tenderness. EXTREMITIES: Warm with trace edema. There is 1+ radial pulses, absent pedal pulses, 1+ femoral pulses. There is a right knee replacement scar. NEUROLOGIC: Cranial nerves II through XII are intact. Strength is 5/5 in all 4 extremities, grossly nonfocal. PSYCH: Normal fluent speech. Appropriate affect. No anxiety or delusions. LABS: White count of 16.3, hemoglobin 14.6, hematocrit 45.7, and platelets of 308. Sodium 144, potassium 4.2, chloride 103, BUN 17, creatinine 0.86, glucose of 117, INR is pending. AST 20, ALT 21, alk phos 114, total protein 7.2, albumin of 3.4, BNP of 62.2, troponin went from 0.029 to 0.022. ABG showed pH 7.33, pCO2 53, pO2 65, O2 saturation 90% on 4 liters nasal cannula. EKG reveals sinus tachycardia and no ST-T-wave changes concerning for ischemia. Chest x-ray reveals questionable interstitial pulmonary edema patterns with trace left pleural effusion; however, there is left mid lung opacity likely superimposed pneumonia. DIAGNOSES 1. Cvwix-ih-zwhujek hypoxic and hypercapnic respiratory failure likely secondary to a lung issue more than heart condition. 2. Abnormal chest x-ray with trace left pleural effusion. 3. Coronary artery disease. 4. Hypertension, essential. 5. Hypercholesterolemia. 6. History of recurrent DVT and PE, on chronic anticoagulant therapy. 7. Rheumatoid arthritis. 8. Active smoker, pretty contemplated at quitting. PLAN/RECOMMENDATIONS 1. 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 2. I appreciate pulmonary critical care team for lung management and will defer to them for steroids, antibiotics, etc. 3. We will check echocardiogram to evaluate her left ventricular function. 4. Nothing clinically at this time suggestive of an unstable coronary syndrome. We will monitor telemetry and just keep her on home medications. 5. We will check INR and continue anticoagulant therapy with Coumadin. 6. We will check lower extremity venous duplex to make sure there is no acute superimposed DVT and slightly recurrent hypercoagulability and PE. 7. We will continue to follow this patient with you. Thank you for this referral. Job#: [id number] NERY
[2018-09-13 06:20] LABS: BASOPHILS % 0.2 % (0.0-1.0); HEMATOCRIT 44.6 % (34.2-44.1); HEMOGLOBIN 14.3 g/dL (12.0-16.0); LYMPHOCYTES # (AUTO) 1.8 (1.0-3.2); LYMPHOCYTES % 11.4 % (18.0-39.1); MEAN CORPUSCULAR HEMOGLOBIN 31.8 pg (28-32); MEAN CORPUSCULAR HGB CONC 32.1 g/dL (31-35); MEAN CORPUSCULAR VOLUME 99.3 fL (81-99); MONOCYTES # (AUTO) 0.7 (0.2-0.8); MONOCYTES % 4.3 % (4.4-11.3); NEUTROPHILS # (AUTO) 13.4 (2.1-6.9); NEUTROPHILS % 83.6 % (38.7-80.0); PLATELET COUNT 260 x10e3/uL (140-360); RED BLOOD COUNT 4.49 x10e6/uL (3.6-5.1); RED CELL DISTRIBUTION WIDTH 15.9 % (11.7-14.4)
[2018-09-13 06:36] LABS: ALANINE AMINOTRANSFERASE 21 IU/L (0-55); ALBUMIN/GLOBULIN RATIO 0.8 (0.8-2.0); ALKALINE PHOSPHATASE 103 IU/L (40-150); ANION GAP 15.2 mmol/L (8-16); BLOOD UREA NITROGEN 21 mg/dL (7-26); BUN/CREATININE RATIO 27 (6-25); CALCIUM 9.5 mg/dL (8.4-10.2); CARBON DIOXIDE 26 mmol/L (22-29); CHLORIDE 106 mmol/L (98-107); CREATININE, SERUM 0.78 mg/dL (0.57-1.11); EST GLOMERULAR FILTRATION RATE > 60 ML/MIN (60-); GLUCOSE 136 mg/dL (74-118); POTASSIUM 4.2 mmol/L (3.5-5.1); SODIUM 143 mmol/L (136-145)
[2018-09-13 08:53] LABS: INR 1.58; PROTHROMBIN TIME 20.2 seconds (11.9-14.5)
[2018-09-13] MEDS: CEFTRIAXONE SOD 1 GM VIAL IV SCH ×2 (09:00→20:36)
[2018-09-13] MEDS: AMLODIPINE BESYLATE 5 MG TAB PO SCH (09:00)
[2018-09-13] MEDS: LORATADINE 10 MG TAB PO SCH (09:00)
[2018-09-13] MEDS: METHYLPREDNISOLONE SOD SUCC 40 MG/ML VIAL IV SCH ×2 (09:00→20:37)
[2018-09-13] MEDS: BENAZEPRIL HCL 10 MG TAB PO SCH (09:00)
[2018-09-13] MEDS ORDERED: WARFARIN SOD 2 MG TAB PO SCH (09:00)
[2018-09-13] MEDS: FLUTICASONE PROPIONATE NASAL SPRAY NS SCH ×2 (09:00→17:00)
[2018-09-13] MEDS: AZELASTINE HCL 137 MCG NASAL SPRAY NS SCH ×2 (09:00→17:00)
[2018-09-13] MEDS ORDERED: AZITHROMYCIN 500MG/NS 250 ML 250 ML IV SCH (09:30)
[2018-09-13] MEDS: MELOXICAM 7.5 MG TAB PO SCH (10:19)
[2018-09-13] MEDS: AZITHROMYCIN 500MG/NS 250 ML 250 ML IV SCH (11:34)
[2018-09-13] MEDS ORDERED: WARFARIN SOD 3 MG TAB PO SCH (17:00)
[2018-09-13] MEDS: GUAIFENESIN/CODEINE 10 ML CUP PO PRN (19:38)
[2018-09-14] VITALS (7 sets, daily range): BP systolic 128–183; BP diastolic 59–78
[2018-09-14] MEDS: GUAIFENESIN/CODEINE 10 ML CUP PO PRN ×5 (01:10→20:46)
[2018-09-14] MEDS: ZOLPIDEM TARTRATE 10 MG TAB PO PRN ×2 (01:30→21:25)
[2018-09-14] MEDS: ALBUTEROL SULF 0.083% NEB SOLN 3 ML NEB NEB PRN ×2 (02:30→07:30)
[2018-09-14 05:06] LABS: BASOPHILS # (AUTO) 0.1 (0.0-0.1); BASOPHILS % 0.3 % (0.0-1.0); HEMATOCRIT 40.2 % (34.2-44.1); HEMOGLOBIN 13.3 g/dL (12.0-16.0); LYMPHOCYTES # (AUTO) 1.3 (1.0-3.2); LYMPHOCYTES % 4.2 % (18.0-39.1); MEAN CORPUSCULAR HGB CONC 33.1 g/dL (31-35); MEAN CORPUSCULAR VOLUME 96.9 fL (81-99); MONOCYTES # (AUTO) 1.8 (0.2-0.8); MONOCYTES % 5.8 % (4.4-11.3); NEUTROPHILS # (AUTO) 28.3 (2.1-6.9); NEUTROPHILS % 89.2 % (38.7-80.0); PLATELET COUNT 294 x10e3/uL (140-360); RED BLOOD COUNT 4.15 x10e6/uL (3.6-5.1); RED CELL DISTRIBUTION WIDTH 15.5 % (11.7-14.4)
[2018-09-14 05:18] LABS: INR 1.47; PROTHROMBIN TIME 19.1 seconds (11.9-14.5)
[2018-09-14 05:26] LABS: ALANINE AMINOTRANSFERASE 25 IU/L (0-55); ALBUMIN/GLOBULIN RATIO 0.8 (0.8-2.0); ALKALINE PHOSPHATASE 99 IU/L (40-150); ANION GAP 16.6 mmol/L (8-16); BLOOD UREA NITROGEN 24 mg/dL (7-26); BUN/CREATININE RATIO 32 (6-25); CALCIUM 9.5 mg/dL (8.4-10.2); CARBON DIOXIDE 26 mmol/L (22-29); CHLORIDE 105 mmol/L (98-107); CREATININE, SERUM 0.75 mg/dL (0.57-1.11); EST GLOMERULAR FILTRATION RATE > 60 ML/MIN (60-); GLUCOSE 142 mg/dL (74-118); POTASSIUM 4.6 mmol/L (3.5-5.1); SODIUM 143 mmol/L (136-145)
[2018-09-14 07:21] LABS: BAND NEUTROPHILS % (MANUAL) 18 %; LYMPHOCYTES % (MANUAL) 9 % (19-48); MONOCYTES % (MANUAL) 6 % (3.4-9.0); NEUTROPHILS % (MANUAL) 67 % (40-74); PLATELET ESTIMATE ADEQUATE; PLATELET MORPHOLOGY COMMENT NORMAL; RBC MORPHOLOGY COMMENT NORMAL
[2018-09-14] MEDS: CEFTRIAXONE SOD 1 GM VIAL IV SCH ×2 (08:45→21:25)
[2018-09-14] MEDS: LORATADINE 10 MG TAB PO SCH (08:45)
[2018-09-14] MEDS: METHYLPREDNISOLONE SOD SUCC 40 MG/ML VIAL IV SCH ×2 (08:45→21:25)
[2018-09-14] MEDS: MELOXICAM 7.5 MG TAB PO SCH (08:46)
[2018-09-14] MEDS: AMLODIPINE BESYLATE 5 MG TAB PO SCH (08:46)
[2018-09-14] MEDS: BENAZEPRIL HCL 10 MG TAB PO SCH (08:46)
[2018-09-14] MEDS: AZELASTINE HCL 137 MCG NASAL SPRAY NS SCH ×2 (09:14→16:43)
[2018-09-14] MEDS: FLUTICASONE PROPIONATE NASAL SPRAY NS SCH ×2 (09:14→16:43)
--- NOTE | 2018-09-14 11:12 | Diagnostic Imaging Report ---
EXAMINATION: CHEST 2 VIEWS INDICATION: ^Pneumonia ^[id number] ^1053 COMPARISON: Chest radiograph 06/29/2018, 02/13/2018. CT chest 04/07/2017 FINDINGS: PA and lateral views TUBES and LINES: None. LUNGS: Lungs are well inflated. Bilateral interstitial edema. Stable bibasilar atelectasis. No new consolidations. Bilateral emphysema, unchanged. PLEURA: Small bilateral pleural effusion, unchanged. HEART AND MEDIASTINUM: The cardiomediastinal silhouette is unremarkable. BONES AND SOFT TISSUES: No acute osseous lesion. Soft tissues are unremarkable. UPPER ABDOMEN: No free air under the diaphragm. IMPRESSION: Bilateral interstitial edema with small bilateral pleural effusions, unchanged. Bilateral emphysema. No new consolidations. Signed by: Dr. Gema Jean M.D. on 09/14/2018 11:09 AM
[2018-09-14] MEDS: AZITHROMYCIN 500MG/NS 250 ML 250 ML IV SCH (11:55)
[2018-09-14] MEDS: WARFARIN SOD 3 MG TAB PO SCH (16:44)
[2018-09-15] VITALS (7 sets, daily range): BP systolic 140–174; BP diastolic 67–75
[2018-09-15] MEDS: GUAIFENESIN/CODEINE 10 ML CUP PO PRN ×2 (04:29→20:37)
[2018-09-15 04:53] LABS: BASOPHILS # (AUTO) 0.1 (0.0-0.1); BASOPHILS % 0.2 % (0.0-1.0); HEMATOCRIT 42.6 % (34.2-44.1); HEMOGLOBIN 13.9 g/dL (12.0-16.0); MEAN CORPUSCULAR HEMOGLOBIN 31.8 pg (28-32); MEAN CORPUSCULAR HGB CONC 32.6 g/dL (31-35); MEAN CORPUSCULAR VOLUME 97.5 fL (81-99); MONOCYTES # (AUTO) 0.7 (0.2-0.8); MONOCYTES % 2.6 % (4.4-11.3); NEUTROPHILS # (AUTO) 22.3 (2.1-6.9); NEUTROPHILS % 88.4 % (38.7-80.0); PLATELET COUNT 319 x10e3/uL (140-360); RED BLOOD COUNT 4.37 x10e6/uL (3.6-5.1); RED CELL DISTRIBUTION WIDTH 15.5 % (11.7-14.4)
[2018-09-15 05:18] LABS: ALANINE AMINOTRANSFERASE 25 IU/L (0-55); ALBUMIN 2.9 g/dL (3.5-5.0); ALBUMIN/GLOBULIN RATIO 0.7 (0.8-2.0); ALKALINE PHOSPHATASE 104 IU/L (40-150); ANION GAP 15.8 mmol/L (8-16); BLOOD UREA NITROGEN 20 mg/dL (7-26); BUN/CREATININE RATIO 24 (6-25); CALCIUM 9.6 mg/dL (8.4-10.2); CARBON DIOXIDE 29 mmol/L (22-29); CHLORIDE 104 mmol/L (98-107); CREATININE, SERUM 0.82 mg/dL (0.57-1.11); EST GLOMERULAR FILTRATION RATE > 60 ML/MIN (60-); GLUCOSE 147 mg/dL (74-118); POTASSIUM 4.8 mmol/L (3.5-5.1); SODIUM 144 mmol/L (136-145)
[2018-09-15] MEDS: BENAZEPRIL HCL 10 MG TAB PO SCH (09:20)
[2018-09-15] MEDS: CEFTRIAXONE SOD 1 GM VIAL IV SCH ×2 (09:20→20:37)
[2018-09-15] MEDS: LORATADINE 10 MG TAB PO SCH (09:20)
[2018-09-15] MEDS: MELOXICAM 7.5 MG TAB PO SCH (09:20)
[2018-09-15] MEDS: METHYLPREDNISOLONE SOD SUCC 40 MG/ML VIAL IV SCH ×2 (09:20→20:37)
[2018-09-15] MEDS: FLUTICASONE PROPIONATE NASAL SPRAY NS SCH ×2 (09:21→16:56)
[2018-09-15] MEDS: AZELASTINE HCL 137 MCG NASAL SPRAY NS SCH ×2 (09:21→16:56)
[2018-09-15] MEDS: AMLODIPINE BESYLATE 5 MG TAB PO SCH (09:21)
[2018-09-15] MEDS ORDERED: PNEUMOCOCCAL VACCINE POLYVALENT 23 MCG/0.5 ML VIAL IM NR (09:30)
[2018-09-15] MEDS ORDERED: INFLUENZA VIRUS VAC SPLIT INJ 0.5 ML SYR IM NR (09:30)
--- NOTE | 2018-09-15 09:56 | Consultation ---
DATE OF CONSULTATION: September 14, 2018 ATTENDING PHYSICIAN: Demarcus Rodriguez MD INFECTIOUS DISEASE CONSULTATION REASON FOR CONSULTATION: Leukocytosis. Thank you, Dr. Rodriguez, for asking me to see this patient. HISTORY: The patient is a 73-year-old woman referred for leukocytosis. She was admitted through the emergency department with bacterial pneumonia and acute exacerbation of chronic obstructive pulmonary disease. She presented to the emergency department on 09/12/2018 with difficulty breathing. She developed running nose and worsening cough a few days prior. She denies fever, chills, nausea, vomiting, diarrhea, abdominal pain and dysuria. She reports intermittent left lower extremity swelling due to chronic vein problems for which she has been attending vein clinic. She denies sick contact, animal exposure, and recent travel or guests. In the emergency department, she was noted to have a temperature of 99.5 degrees Fahrenheit, pulse rate 119, respiratory rate 26, blood pressure 154/63 and oxygen saturation 85% on room air. Initial laboratory studies showed blood leukocyte count of 16,320, which later increased to 31,760, BUN 17, creatinine 0.86, troponin 0.029 and BNP 62.2. Chest x-ray was read as interstitial pulmonary edema with trace bilateral pleural effusions. PAST MEDICAL HISTORY: Hypertension, hyperlipidemia, coronary artery disease, chronic obstructive pulmonary disease, deep venous thrombosis, pulmonary embolism, rheumatoid arthritis and varicose veins. PAST SURGICAL HISTORY: Bilateral cataract surgery, lower back surgery 3 times, and right knee replacement. ALLERGIES: NO KNOWN DRUG ALLERGIES. MEDICATION: See MAR. The current antibiotics are ceftriaxone 1 gram IV piggyback q.12 h. and azithromycin 500 mg IV piggyback q.24 h. IMMUNIZATIONS: Patient has not received pneumococcal vaccination. Also, she has not received influenza vaccination this season. FAMILY HISTORY: Noncontributory. SOCIAL HISTORY: She still smokes cigarettes 1 pack a day and has been smoking for many years. She denies alcohol use. REVIEW OF SYSTEMS: As per history of present illness. She feels better since admission and management. PHYSICAL EXAMINATION GENERAL: Mildly dyspneic. VITAL SIGNS: T-max 99.2, pulse 86, respiratory rate 18. Blood pressure 157/69. Weight 203 pounds. HEENT: Normocephalic. There is no icterus or injection of conjunctivae. There is no ear discharge. There is nasal discharge. NECK: There is slight pharyngeal mucus, but no rahul exudate. Neck is supple. No lymphadenopathy. LUNGS: A few rhonchi bilaterally. HEART: Normal S1 and S2, regular. ABDOMEN: Normal bowel sounds in all quadrants. Soft, nontender. EXTREMITIES: There is no clubbing or cyanosis. SKIN: There is no acute erythema. 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 Nonfocal. LABORATORY AND DIAGNOSTICS: WBC 25,160, hemoglobin 13.9, platelets 319,000, neutrophils 88.4, lymphs 8, mono 2.6, eosinophils 0, basophils 0.2. BUN 20, creatinine 0.82. Blood culture showed no growth. Sputum culture showed usual respiratory kemi. IMPRESSION 1. Leukocytosis. 2. Acute exacerbation of chronic obstructive pulmonary disease. 3. Pulmonary infiltrates. 4. Rheumatoid arthritis. 5. Tobacco use disorder. PLAN 1. Administer influenza and pneumococcal vaccination (if the patient agrees). 2. Smoking cessation counseling provided to the patient. 3. Taper methylprednisolone if possible. Job#: [id number] TEODORA
[2018-09-15] MEDS: AZITHROMYCIN 500MG/NS 250 ML 250 ML IV SCH (12:00)
[2018-09-15] MEDS: ALBUTEROL SULF 0.083% NEB SOLN 3 ML NEB NEB PRN ×2 (15:47→19:40)
[2018-09-15] MEDS: WARFARIN SOD 3 MG TAB PO SCH (16:56)
[2018-09-15] MEDS: ZOLPIDEM TARTRATE 10 MG TAB PO PRN (20:37)
[2018-09-15] MEDS ORDERED: PNEUMOCOCCAL VACCINE POLYVALENT 23 MCG/0.5 ML VIAL IM ONE (21:00)
[2018-09-15] MEDS ORDERED: INFLUENZA VIRUS VAC SPLIT INJ 0.5 ML SYR IM ONE (21:00)
[2018-09-16] VITALS: BP 130/74
[2018-09-16 04:00] VITALS: BP 148/65
[2018-09-16] MEDS: GUAIFENESIN/CODEINE 10 ML CUP PO PRN (04:05)
[2018-09-16 06:05] LABS: BASOPHILS % 0.1 % (0.0-1.0); HEMATOCRIT 40.5 % (34.2-44.1); HEMOGLOBIN 13.3 g/dL (12.0-16.0); LYMPHOCYTES # (AUTO) 2.1 (1.0-3.2); MEAN CORPUSCULAR HGB CONC 32.8 g/dL (31-35); MEAN CORPUSCULAR VOLUME 97.4 fL (81-99); MONOCYTES # (AUTO) 0.8 (0.2-0.8); MONOCYTES % 5.6 % (4.4-11.3); NEUTROPHILS # (AUTO) 11.1 (2.1-6.9); NEUTROPHILS % 78.4 % (38.7-80.0); PLATELET COUNT 329 x10e3/uL (140-360); RED BLOOD COUNT 4.16 x10e6/uL (3.6-5.1); RED CELL DISTRIBUTION WIDTH 15.1 % (11.7-14.4)
[2018-09-16 06:30] LABS: INR 1.33; PROTHROMBIN TIME 17.6 seconds (11.9-14.5)
[2018-09-16 07:16] VITALS: BP 164/90
[2018-09-16] MEDS: BENAZEPRIL HCL 10 MG TAB PO SCH (08:21)
[2018-09-16] MEDS: AMLODIPINE BESYLATE 5 MG TAB PO SCH (08:21)
[2018-09-16] MEDS: FLUTICASONE PROPIONATE NASAL SPRAY NS SCH (08:21)
[2018-09-16] MEDS: AZELASTINE HCL 137 MCG NASAL SPRAY NS SCH (08:21)
[2018-09-16] MEDS: MELOXICAM 7.5 MG TAB PO SCH (08:21)
[2018-09-16] MEDS: LORATADINE 10 MG TAB PO SCH (08:21)
--- NOTE | 2018-11-19 17:06 | Discharge Summary ---
DISCHARGE DIAGNOSES 1. Chronic obstructive pulmonary disease with acute exacerbation. 2. Hypertension. 3. Pneumonia with sepsis present on admission. 4. Chronic back pain. 5. Remote history of pulmonary embolism. CONSULTING PHYSICIAN: Dr. Hermelinda Diez RADIOGRAPHIC STUDIES 1. Venous duplex showed no evidence of venous thrombosis. 2. Echocardiogram showed a normal left ventricular function with mild LVH and trace mitral regurgitation and tricuspid regurgitation. HISTORY OF PRESENT ILLNESS: The patient is a 73-year-old woman. She has a history of COPD and remote history of pulmonary embolism. She has required blood thinners in the past. She came to the hospital complaining of worsening congestion and cough. It was not relieved with antibiotics and steroids as an outpatient. HOSPITAL COURSE: The patient was admitted. She was found have an elevated white blood cell count and her chest x-ray showed changes consistent with pneumonia. She was started on IV antibiotics. The patient also received treatment for COPD with an acute exacerbation. She received Solu-Medrol along with bronchodilators and oxygen. She saw cardiology in consultation and had an echocardiogram that was within normal limits. DISPOSITION: Patient will be discharged home and will follow up with Dr. Demarcus Rodriguez. DEMARCUS RODRIGUEZ MD Job#: [id number]
== END 2018-09-16 09:10 | disposition home or self-care (01) | DRG 871 ==
LOC: ER 07:06 → ERHOLD 10:31 → UNDOADMOB 10:31 → ERHOLD 10:48 → IMCU 14:36 → OBSVTOIN 09-13 07:55 → MED/SURG 09-13 16:56 → MED/SURG2 09-14 06:28
PROVIDERS: ADMIT Internal Medicine Critical Care Medicine; ATTEND Internal Medicine Critical Care Medicine
DX: A41.9 Sepsis, unspecified organism (principal); J15.9 Unspecified bacterial pneumonia; J96.22 Acute and chronic respiratory failure with hypercapnia; J96.21 Acute and chronic respiratory failure with hypoxia; J44.0 Chronic obstructive pulmonary disease with (acute) lower respiratory infection; J44.1 Chronic obstructive pulmonary disease with (acute) exacerbation; I50.22 Chronic systolic (congestive) heart failure; F17.210 Nicotine dependence, cigarettes, uncomplicated; Z86.711 Personal history of pulmonary embolism; Z86.718 Personal history of other venous thrombosis and embolism; Z82.3 Family history of stroke; E78.00 Pure hypercholesterolemia, unspecified; M06.9 Rheumatoid arthritis, unspecified; Z79.01 Long term (current) use of anticoagulants; Z80.0 Family history of malignant neoplasm of digestive organs; Z96.651 Presence of right artificial knee joint; Z80.1 Family history of malignant neoplasm of trachea, bronchus and lung; Z80.8 Family history of malignant neoplasm of other organs or systems; Z82.49 Family history of ischemic heart disease and other diseases of the circulatory system; I25.10 Atherosclerotic heart disease of native coronary artery without angina pectoris
CPT/HCPCS: 36415; 36600; 71045; 71046; 80053; 82550; 82553; 82805; 83880; 84443; 84484; 85025; 85610; 87040; 87070; 87205; 90732; 93005; 93306; 93970; 94640; 99284; G0009; G0378; J0456; J0696; J1940; J2920; J2930

== ENCOUNTER 2018-12-29 16:50 | Inpatient (IN) | payer MEDICARE ==
[~2018-12-29] VITALS: Ht 165.1 cm; Wt 95.7 kg
--- OUTSIDE RECORDS SUMMARY | 2018-12-29 16:55 | XMS REPORT | Continuity of Care Document ---
Author Author Atiya [facility]ly [facility] Interface Address Unknown Phone Unavailable Problems Problem Status Onset Date Classification Date Reported Comments Source Right shoulder pain Active Problem 12/24/2018 Oumar Avila Rheumatoid arthritis of multiple sites without rheumatoid factor Active Problem 12/24/2018 Oumar Gramajo Primary osteoarthritis involving multiple joints Active Problem 12/24/2018 Oumar Gramajo Other senior care drug therapy Active Problem 12/24/2018 Oumar Gramajo Cigarette nicotine dependence, uncomplicated Active Problem 12/24/2018 Oumar Avila Pain in right shoulder Active Problem 12/24/2018 Oumar Gramajo Shoulder pain, left Active Problem 12/24/2018 Oumar Gramajo Age-related osteoporosis without current pathological fracture Active Problem 12/24/2018 Oumar Gramajo Vitamin D deficiency, unspecified Active Problem 12/24/2018 Oumar Gramajo Encounter for long-term drug use Active Diagnosis 09/06/2017 Oumar Gramajo Hyperkalemia Active Diagnosis 09/06/2017 Oumar Gramajo Trochanteric bursitis of left hip Active Problem 12/24/2018 Oumar Gramajo Trochanteric bursitis, right hip Active Problem 12/24/2018 Oumar Gramajo Rheumatoid arthritis Active Problem 10/26/2016 Oumar Gramajo Unspecified vitamin D deficiency Active Problem 10/26/2016 Oumar Gramajo Long-term use of other medications - High Risk Active Problem 10/26/2016 Oumar Gramajo Osteoarthrosis, lower leg Active Problem 10/26/2016 Oumar Gramajo Osteopenia Active Problem 10/26/2016 Oumar Gramajo 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 current use of opiate analgesic Active Diagnosis 12/24/2018 Oumar Gramajo Pain in joint, lower leg Active Diagnosis 06/04/2014 Oumar Gramajo Rheumatoid arthritis without rheumatoid factor, multiple sites Active Diagnosis 10/05/2015 Oumar Gramajo Localized osteoarthrosis not specified whether primary or secondary, other specified sites Active Diagnosis 02/17/2015 Oumra Gramajo Need for prophylactic vaccination and inoculation against influenza Active Diagnosis 10/12/2015 Oumar Gramajo Encounter for long-term use of other high-risk medications Active Diagnosis 01/10/2016 Oumar Gramajo Osteoporosis Active Diagnosis 05/03/2016 Oumar Gramajo COPD exacerbation Active Problem 07/01/2018 [facility] COPD with exacerbation Active Problem 07/01/2018 [facility] Pneumonia Active Problem 07/01/2018 [facility] Respiratory failure with hypoxia and hypercapnia Active Problem 07/01/2018 [facility] Medications Medication Details Route Status Patient Instructions Ordering Provider Order Date Source Tramadol HCl 2 tablets Orally Active 50MG Orally every 6 hrs Gramajo 12/15/2018 Oumar Gramajo Meloxicam 1 tablet Orally Active 7.5 MG Orally Once a day Gramajo 12/15/2018 Oumar Gramajo Meloxicam 1 tablet Orally Active 7.5 MG Orally Once a day Ma 12/01/2018 Oumar Gramajo Tramadol HCl 2 tablets Orally Active 50MG Orally every 6 hrs Ma 12/01/2018 Oumar Gramajo PredniSONE 1 tablet Orally Active 5 MG Orally Once a day Ma 09/08/2018 Oumar Gramajo Fosamax 1 tablet Orally Active 70 MG Orally once a week Ma 09/02/2018 Oumar Gramajo Trevon as directed NA Active 5mg once a day Ma 09/02/2018 Oumar Gramajo PredniSONE 1 tablet Orally Active 5 MG Orally Once a day Ma 06/02/2018 Oumar Gramajo Cefdinir (Omnicef) 300 Mg Capsule, 300 Mg Oral Every 12 Hours Active 02/13/2018 [facility] Prednisone 10 Mg Tab, 10 Mg Oral Active 02/13/2018 [facility] Tramadol HCl TAKE 2 TABLETS BY MOUTH EVERY 6 HOURS Orally Active 50MG Orally every 6 hrs Ma 09/17/2017 Oumar Gramajo Prolia as directed Subcutaneous Active 60 MG/ML Subcutaneous [id number] Gramajo 09/04/2017 Oumar Gramajo Vitamin D (Ergocalciferol) 1 capsule Orally Active 41524 UNIT Orally once week Gramajo 09/04/2017 Oumar Gramajo Vitamin D (Ergocalciferol) 1 capsule Orally Active 02309 UNIT Orally once week Ma 09/04/2017 Oumar Gramajo Imuran 1 tablet Orally Active 50 MG Orally BID Ma 09/02/2017 Oumar Gramajo Prolia as directed Subcutaneous Active 60 MG/ML Subcutaneous Ma 09/02/2017 Oumar Gramajo Imuran 1 tablet Orally Active 50 MG Orally BID Ma 09/02/2017 Oumar Gramajo Imuran 1 tablet Orally Active 50 MG Orally once a day Ma 05/20/2017 Oumar Gramajo Loratadine 10 Mg Tablet Daily Active Eliu 04/09/2017 [facility] Benazepril , 10 Mg Oral Daily Active 02/21/2017 [facility] Warfarin Sodium (Coumadin) 5 Mg Tablet, 5 Mg Oral Daily Active 02/21/2017 [facility] Sulfasalazine (Azulfidine) 500 Mg Tablet.dr, 500 Mg Oral Active 02/18/2017 [facility] Leflunomide 1 tablet Orally Active 10 MG Orally Once a day Ma 12/17/2016 Oumar Gramajo Tramadol HCl TAKE TWO TABLETS BY MOUTH EVERY 6 HOURS Orally Active 50MG Orally every 6 hrs Aurora 09/27/2016 Oumar Gramajo Boniva 1 tablet Orally Active 150 MG Orally Oncce a month Gramajo 04/20/2016 Oumar Gramajo Acetaminophen-Codeine #4 1 tablet as needed Orally Active 300- 60 MG Orally bid Gramajo 01/05/2016 Oumar Gramajo Sulfasalazine 4 tablets Orally Active 500MG Orally BID Am 01/02/2016 Oumar Gramajo Sulfasalazine take two tablets Orally Active 500MG Orally three times a day Gramajo 01/18/2015 Oumar Gramajo [id number] 1 capsule Orally Active 500-50 MG Orally every 12 hrs Rik 01/06/2015 Oumar Gramajo Naproxen 1 tablet as needed Orally Active 500 MG Orally Three times a day [place] 09/22/2014 Oumar Gramajo Methotrexate 5 tablets Orally Active 2.5mg Orally Once a week Ma 06/01/2014 Oumar Gramajo Folic Acid 1 tablet Orally Active 1 MG Orally Once a day Ma 06/01/2014 Oumar Gramajo Folic Acid 1 tablet Orally Active 1 MG Orally Once a day Diana 03/16/2014 Oumar Gramajo Naproxen 1 tablet Orally [...] Orally Once a day Ma Oumar Gramajo Pravastatin Sodium 1 tablet Orally Active 20 MG Orally Once a day Ma Oumar Gramajo Tramadol HCl TAKE TWO TABLETS BY MOUTH EVERY 6 HOURS NA Active 50MG Ma Oumar Gramajo Benazepril HCl 1 tablet Orally Active 20 MG Orally Once a day Ma Oumar Gramajo Pravastatin Sodium 1 tablet Orally Active 20 MG Orally Once a day Ma Oumar Gramajo Meloxicam 1 tablet Orally Active 7.5 MG Orally Once a day Ma Oumar Gramajo Coumadin 1 tablet Orally Active 2 MG Orally once a day [place] Oumar Gramajo Vitamin D 1 tablet Orally Active 1000 UNIT Orally Once a day Ma Oumar Gramajo Tramadol HCl 2 tablets Orally Active 50MG Orally every 6 hrs Arimo Oumar Fisherer Sulfasalazine take two tablets Orally Active 500MG Orally three times a day [place] Oumar Gramajo Tramadol HCl TAKE TWO TABLETS BY MOUTH THREE TIMES DAILY NA Active 50MG [place] Oumar Gramajo Omeprazole 1 capsule Orally Active 20 MG Orally Once a day [place] Oumar Gramajo Vitamin D (Ergocalciferol) 1 capsule Orally Active 79118 UNIT Orally once a week Diana Oumar Gramajo Sulfasalazine take two tablets Orally Active 500MG Orally three times a day Rik Oumar Gramajo Sulfasalazine TAKE TWO TABLETS BY MOUTH THREE TIMES DAILY Orally Active 500MG Orally tid [place] Oumar Fisherer Acetaminophen-Codeine #4 1 tablet as needed Orally Active 300- 60 MG Orally bid [place] Oumar Gramajo Tramadol one tab orally Active 50 mg orally every 4-6 hours prn pain Ma Oumar Gramajo Fosamax 1 tablet Orally Active 40 MG Orally Once a day [place] Oumar Gramajo Meloxicam 1 tablet Orally Active 7.5 MG Orally Once a day [place] Oumar Fisherer Amlodipine Besylate 5 Mg Tablet Daily Active [facility] Benazepril Hcl 10 Mg Tablet Daily Active [facility] Meloxicam 7.5 Mg Tablet Daily Active [facility] Pravastatin Daily Active [facility] Tramadol Hcl (Ultram) 50 Mg Tablet 2TID Active [facility] Warfarin Sodium 2.5 Mg Tablet Daily Active [facility] Allergies, Adverse Reactions, Alerts Substance Category Reaction Severity Reaction type Status Date Reported Comments Source Sulfasalazine Adverse Reaction Info Not Available Adverse Reaction Active 12/22/2018 Oumar Fisherer Plaquenil Adverse Reaction Info Not Available Adverse Reaction Active 12/22/2018 Oumar Avila Imuran Adverse Reaction Info Not Available Adverse Reaction Active 12/22/2018 Oumar Gramajo Immunizations Immunization Date Given Site Status Last Updated Comments Source Flu Vaccine 10/04/2015 completed Oumar Gramajo Results Order Name Results Value Reference Range Date Interpretation Comments Source Automated blood basophil count (count/volume) Automated blood basophil count (count/volume) 0.0 0.0 - 0.1 07/01/2018 [facility] Automated blood basophil count as percentage of total leukocytes Automated blood basophil count as percentage of total leukocytes 0.1 0.0 - 1.0 07/01/2018 [facility] Automated blood eosinophil count Automated blood eosinophil count 0.0 0.0 - 0.4 07/01/2018 [facility] Automated blood eosinophil count as percentage of total leukocytes Automated blood eosinophil count as percentage of total leukocytes 0.0 0.0 - 6.0 07/01/2018 [facility] Automated blood hematocrit (volume fraction) Automated blood hematocrit (volume fraction) 41.7 34.2 - 44.1 07/01/2018 [facility] Automated blood lymphocyte count as percentage ot total leukocytes Automated blood lymphocyte count as percentage ot total leukocytes 14.3 18.0 - 39.1 07/01/2018 [facility] Automated blood monocyte count as percentage of total leukocytes Automated blood monocyte count as percentage of total leukocytes 3.8 4.4 - 11.3 07/01/2018 [facility] Automated blood neutrophil count Automated blood neutrophil count 8.8 2.1 - 6.9 07/01/2018 [facility] Automated blood platelet count (count/volume) Automated blood platelet count (count/volume) 268 140 - 360 07/01/2018 [facility] Automated blood segmented neutrophil count as percentage of total leukocytes Automated blood segmented neutrophil count as percentage of total leukocytes 81.4 38.7 - 80.0 07/01/2018 [facility] Automated erythrocyte mean corpuscular hemoglobin (mass per erythrocyte) Automated erythrocyte mean corpuscular hemoglobin (mass per erythrocyte) 30.8 28 - 32 07/01/2018 [facility] Automated erythrocyte mean corpuscular hemoglobin concentration measurement (mass/volume) Automated erythrocyte mean corpuscular hemoglobin concentration measurement (mass/volume) 32.6 31 - 35 07/01/2018 [facility] Automated erythrocyte mean corpuscular volume Automated erythrocyte mean corpuscular volume 94.3 81 - 99 07/01/2018 [facility] Blood erythrocytes automated count (number/volume) Blood erythrocytes automated count (number/volume) 4.42 3.6 - 5.1 07/01/2018 [facility] Blood hemoglobin measurement (moles/volume) Blood hemoglobin measurement (moles/volume) 13.6 12.0 - 16.0 07/01/2018 [facility] Blood leukocytes automated count (number/volume) Blood leukocytes automated count (number/volume) 10.77 4.8 - 10.8 07/01/2018 [facility] Blood lymphocytes count (number/volume) Blood lymphocytes count (number/volume) 1.5 1.0 - 3.2 07/01/2018 [facility] Blood monocytes automated count (number/volume) Blood monocytes automated count (number/volume) 0.4 0.2 - 0.8 07/01/2018 [facility] Estimated glomerular filtration rate (GFR) determination Estimated glomerular filtration rate (GFR) determination null 60 07/01/2018 [facility] Glucose measurement Glucose measurement 158 74 - 118 07/01/2018 [facility] INR in Platelet poor plasma by Coagulation assay INR in Platelet poor plasma by Coagulation assay 1.02 07/01/2018 [facility] Plasma globulin measurement (mass/volume) Plasma globulin measurement (mass/volume) 3.5 2.3 - 3.5 07/01/2018 [facility] Prothrombin time (PT) in platelet poor plasma by coagulation assay Prothrombin time (PT) in platelet poor plasma by coagulation assay 12.6 11.9 - 14.5 07/01/2018 [facility] Serum or plasma alanine aminotransferase measurement (enzymatic activity/volume) Serum or plasma alanine aminotransferase measurement (enzymatic activity/volume) 28 0 - 55 07/01/2018 [facility] Serum or plasma albumin measurement (mass/volume) Serum or plasma albumin measurement (mass/volume) 3.1 3.5 - 5.0 07/01/2018 [facility] Serum or plasma albumin/globulin mass ratio Serum or plasma albumin/globulin mass ratio 0.9 0.8 - 2.0 07/01/2018 [facility] Serum or plasma alkaline phosphatase measurement (enzymatic activity/volume) Serum or plasma alkaline phosphatase measurement (enzymatic activity/volume) 112 40 - 150 07/01/2018 [facility] Serum or plasma anion gap Serum or plasma anion gap 14.0 8 - 16 07/01/2018 [facility] Serum or plasma calcium measurement (mass/volume) Serum or plasma calcium measurement (mass/volume) 9.4 8.4 - 10.2 07/01/2018 [facility] Serum or plasma carbon dioxide, total measurement (moles/volume) Serum or plasma carbon dioxide, total measurement (moles/volume) 34 22 - 29 07/01/2018 [facility] Serum or plasma chloride measurement (moles/volume) Serum or plasma chloride measurement (moles/volume) 102 98 - 107 07/01/2018 [facility] Serum or plasma creatinine measurement (mass/volume) Serum or plasma creatinine measurement (mass/volume) 0.80 0.57 - 1.11 07/01/2018 [facility] Serum or plasma potassium measurement (moles/volume) Serum or plasma potassium measurement (moles/volume) 5.0 3.5 - 5.1 07/01/2018 [facility] Serum or plasma protein measurement (mass/volume) Serum or plasma protein measurement (mass/volume) 6.6 6.5 - 8.1 07/01/2018 [facility] Serum or plasma sodium measurement (moles/volume) Serum or plasma sodium measurement (moles/volume) 145 136 - 145 07/01/2018 [facility] Serum or plasma total bilirubin measurement (mass/volume) Serum or plasma total bilirubin measurement (mass/volume) 0.5 0.2 - 1.2 07/01/2018 [facility] Serum or plasma urea nitrogen measurement (mass/volume) Serum or plasma urea nitrogen measurement (mass/volume) 22 7 - 26 07/01/2018 [facility] Serum or plasma urea nitrogen/creatinine mass ratio Serum or plasma urea nitrogen/creatinine mass ratio 28 6 - 25 07/01/2018 [facility] Red Cell Distribution Width 15.9 11.7 - 14.4 07/01/2018 [facility] IM GRANULOCYTES % 0.4 0.0 - 1.0 07/01/2018 [facility] Absolute Immature Granulocyte (auto 0.04 0 - 0.1 07/01/2018 [facility] Aspartate Amino Transf (AST/SGOT) 19 5 - 34 07/01/2018 [facility] Serum or plasma creatine kinase MB measurement (mass/volume) Serum or plasma creatine kinase MB measurement (mass/volume) 3.30 0 - 5.0 06/30/2018 [facility] Serum or plasma creatine kinase measurement (enzymatic activity/volume) Serum or plasma creatine kinase measurement (enzymatic activity/volume) 74 29 - 168 06/30/2018 [facility] Troponin I measurement by highly sensitive enzyme immunoassay Troponin I measurement by highly sensitive enzyme immunoassay 0.038 0 - 0.300 06/30/2018 [facility] Activated partial thromboplastin time (aPTT) in platelet poor plasma bycoagulation assay Activated partial thromboplastin time (aPTT) in platelet poor plasma bycoagulation assay 28.9 23.8 - 35.5 06/29/2018 [facility] B-Type Natriuretic Peptide 88.6 0 - 100 06/29/2018 [facility] Serum or plasma trough vancomycin level at trough (mass/volume) Serum or plasma trough vancomycin level at trough (mass/volume) 11.2 5.0 - 10.0 02/16/2018 [facility] Blood platelets count by estimate (number/volume) Blood platelets count by estimate (number/volume) MODERATELY INCREASED 02/16/2018 [facility] Manual blood band neutrophils form/100 leukocytes Manual blood band neutrophils form/100 leukocytes 4 02/16/2018 [facility] Manual blood lymphocytes/100 leukocytes Manual blood lymphocytes/100 leukocytes 22 19 - 48 02/16/2018 [facility] Manual blood monocytes/100 leukocytes Manual blood monocytes/100 leukocytes 5 3.4 - 9.0 02/16/2018 [facility] Manual blood neutrophils/100 leukocytes Manual blood neutrophils/100 leukocytes 69 40 - 74 02/16/2018 [facility] Platelet morphology Platelet morphology NORMAL 02/16/2018 [facility] RBC morphology RBC morphology NORMAL 02/16/2018 [facility] Differential Total Cells Counted 100 02/16/2018 [facility] Arterial blood base excess by calculation Arterial blood base excess by calculation 9.0 -2 - 3 - 2 02/13/2018 [facility] Arterial blood bicarbonate measurement (moles/volume) Arterial blood bicarbonate measurement (moles/volume) 35 23 - 28 02/13/2018 [facility] Arterial blood oxygen saturation measurement Arterial blood oxygen saturation measurement 90.0 95 - 98 02/13/2018 [facility] Arterial blood pH measurement Arterial blood pH measurement 7.34 7.31 - 7.41 02/13/2018 [facility] Arterial Blood Partial Pressure CO2 65 41 - 51 02/13/2018 [facility] Arterial Blood Partial Pressure O2 65 80 - 105 02/13/2018 [facility] Amorphous sediment detection in urine sediment by light microscopy Amorphous sediment detection in urine sediment by light microscopy RARE FEW 02/13/2018 [facility] Automated urine sediment leukocyte count by microscopy (number/high power field) Automated urine sediment leukocyte count by microscopy (number/high power field) NONE 0 - 5 02/13/2018 [facility] Bacteria detection in urine sediment by light microscopy Bacteria detection in urine sediment by light microscopy NONE NONE 02/13/2018 [facility] Coarse granular casts detection in urine sediment by light microscopy Coarse granular casts detection in urine sediment by light microscopy null 0 02/13/2018 [facility] Epithelial cells detection in urine sediment by light microscopy Epithelial cells detection in urine sediment by light microscopy NONE NONE 02/13/2018 [facility] Erythrocytes detection in urine sediment by light microscopy Erythrocytes detection in urine sediment by light microscopy null 0 - 5 02/13/2018 [facility] Specific gravity of Urine by Test strip Specific gravity of Urine by Test strip 1.025 1.010 - 1.025 02/13/2018 [facility] Urine clarity Urine clarity SL CLOUDY CLEAR 02/13/2018 [facility] Urine color determination Urine color determination YELLOW YELLOW 02/13/2018 [facility] Urine erythrocytes detection Urine erythrocytes detection 3+ NEGATIVE 02/13/2018 [facility] Urine glucose detection Urine glucose detection NEGATIVE NEGATIVE 02/13/2018 [facility] Urine ketones detection by automated test strip Urine ketones detection by automated test strip NEGATIVE NEGATIVE 02/13/2018 [facility] Urine Legionella pneumophila 1 antigen detection by immunoassay Urine Legionella pneumophila 1 antigen detection by immunoassay Negative Negative 02/13/2018 [facility] Urine leukocyte esterase detection by dipstick Urine leukocyte esterase detection by dipstick NEGATIVE NEGATIVE 02/13/2018 [facility] Urine nitrite detection Urine nitrite detection NEGATIVE NEGATIVE 02/13/2018 [facility] Urine pH measurement by automated test strip Urine pH measurement by automated test strip 5 5 - 7 02/13/2018 [facility] Urine protein measurement by test strip (mass/volume) Urine protein measurement by test strip (mass/volume) 2+ NEGATIVE 02/13/2018 [facility] Urine total bilirubin measurement (mass/volume) Urine total bilirubin measurement (mass/volume) NEGATIVE NEGATIVE 02/13/2018 [facility] Urine urobilinogen measurement by test strip (mass/volume) Urine urobilinogen measurement by test strip (mass/volume) 1 0.2 - 1 02/13/2018 [facility] Influenza virus A and B antigen identification by immunofluorescence Influenza virus A and B antigen identification by immunofluorescence NEGATIVE NEGATIVE 02/13/2018 [facility] Blood culture Blood culture NO GROWTH AFTER 5 DAYS, FINAL REPORT 02/13/2018 [facility] Serum or plasma magnesium measurement (mass/volume) Serum or plasma magnesium measurement (mass/volume) 1.6 1.3 - 2.1 02/13/2018 [facility] Lactic Acid Level 9.4 4.5 - 19.8 02/13/2018 [facility] Vital Signs Vital Sign Value Date Comments Source Weight 211.1 12/22/2018 Oumar Gramajo Height 62 12/22/2018 Oumar Gramajo Temperature Oral (F) 99.9 F 12/22/2018 Oumar Gramajo Heart Rate 80 12/22/2018 Oumar Gramajo Diastolic (mm Hg) 64 12/22/2018 Oumar Gramajo Systolic (mm Hg) 145 12/22/2018 Oumar Gramajo Weight 197.4 09/02/2018 Oumar Gramajo Height 62 [...] Gramajo Systolic (mm Hg) 142 12/17/2016 Oumar Gramjao Weight 204 08/08/2016 Oumar Gramajo Height 62 [...] Preston Gramajo MD follow u for refills [id number] 03/16/2014 03/16/2014 Oumar Gramajo MD follow u for refills [id number] 03/16/2014 03/16/2014 Oumar Gramajo MD follow u for refills [id number] 03/16/2014 03/16/2014 Oumar Gramajo MD follow u for refills [id number] 03/16/2014 03/16/2014 Oumar Gramajo MD follow u for refills [id number] 03/16/2014 03/16/2014 Oumar Gramajo MD follow u for refills [id number] 03/16/2014 03/16/2014 Oumar Gramajo MD follow u for refills [id number] 03/16/2014 03/16/2014 Oumar Gramajo MD follow u for refills [id number] 03/16/2014 03/16/2014 Oumar Gramajo MD follow u for refills [id number] 03/16/2014 03/16/2014 Oumar Gramajo MD follow u for refills [id number] 03/16/2014 03/16/2014 Oumar Gramajo MD follow u for refills [id number] 03/16/2014 03/16/2014 Oumar Gramajo MD follow u for refills [id number] 03/16/2014 03/16/2014 Oumar Gramajo MD follow u for refills [id number] 03/16/2014 03/16/2014 Oumar Gramajo MD follow u for refills [id number] 03/16/2014 03/16/2014 Oumar Gramajo MD follow u for refills [id number] 03/16/2014 03/16/2014 Oumar Gramajo MD follow u for refills [id number] 03/16/2014 03/16/2014 Oumar Gramajo MD follow u for refills [id number] 03/16/2014 03/16/2014 Oumar Gramajo MD follow u for refills [id number] 03/16/2014 03/16/2014 Oumar Gramajo MD follow u for refills [id number] 03/16/2014 03/16/2014 Oumar Gramajo MD follow u for refills 3h59wo60-9kr6-66w0-uvi7-1g160928614g 03/16/2014 03/16/2014 Oumar Gramajo MD follow u for refills rn79b731-5843-97z5-p853-61dd57u8b82h 03/16/2014 03/16/2014 Oumar Gramajo MD follow u for refills 3e5364x5-mo46-1363-719o-02b061840072 03/16/2014 03/16/2014 Oumar Gramajo MD follow u for refills 13678y97-48md-9ki3-u303-632877x43e19 03/16/2014 03/16/2014 Oumar Gramajo MD follow u for refills m7m1qe3d-651o-6n44-725q-z2xoas1mr684 03/16/2014 03/16/2014 Oumar Gramajo MD follow u for refills 2v2157g5-j5dj-29u2-uw7u-43617r204p73 03/16/2014 03/16/2014 Oumar Gramajo MD follow u for refills 9p4k6682-49p9-71ny-284l-08y3r30d451k 03/16/2014 03/16/2014 Oumar Gramajo MD follow u for refills 97852w30-2tr8-6t73-h5e5-76jtu26u5615 03/16/2014 03/16/2014 Oumar Gramajo MD follow u for refills 04076s32-b2ku-483o-jsp0-4576742ig4cc 03/16/2014 03/16/2014 Oumar Gramajo MD follow u for refills 31969e3d-9n4d-1t4b-740c-oak1zpxzu68s 03/16/2014 03/16/2014 Oumar Gramajo MD follow u for refills h91g0s89-3v53-6906-h5b0-496ek49f5765 03/16/2014 03/16/2014 Oumar Gramajo MD follow u for refills v4e90057-6v6b-73h2-8198-2nvvrjsv1x0z 03/16/2014 03/16/2014 Oumar Gramajo MD follow u for refills 1021ud88-3fst-29fj-a291-495d2m25otn4 03/16/2014 03/16/2014 Oumar Gramajo MD follow u for refills 2k9na959-7929-6b2v-e881-p57o9el55358 06/01/2014 06/01/2014 Oumar Gramajo MD follow u for refills 48176847-632s-32s3-920g-639787l51p53 06/01/2014 06/01/2014 Oumar Gramajo MD follow u for refills w2f771s2-l92d-6f5f-5i75-6y8b8526710e 06/01/2014 06/01/2014 Oumar Gramajo MD follow u for refills 4ef209fb-y440-6577-95i8-56264psd92d2 06/01/2014 06/01/2014 Oumar Gramajo MD follow u for refills [id number]-v8n4-50t5-fr20-828v1r668e42 06/01/2014 06/01/2014 Oumar Gramajo MD follow u for refills pfs78493-50gx-1p29-xv00-96820i440022 06/01/2014 06/01/2014 Oumar Gramajo MD follow u for refills 3p59ib19-312n-7zez-5630-017173047292 06/01/2014 06/01/2014 Oumar Gramajo MD follow u for refills 90m484d2-2356-6y99-b672-j99f91960413 06/01/2014 06/01/2014 Oumar Gramajo MD follow u for refills 7oi4nf3y-7470-5yy4-i608-i22h1jw40xfq 06/01/2014 06/01/2014 Oumar Gramajo MD follow u for refills j43t0580-7knc-4e9f-4m93-06z3vv78x937 06/01/2014 06/01/2014 Oumar Gramajo MD follow u for refills 9c3589g7-pu73-065r-78o3-954hk438r226 06/01/2014 06/01/2014 Oumar Gramajo MD follow u for refills 9y3z0n72-8472-6408-2301-35htd6w8812o 06/01/2014 06/01/2014 Oumar Gramajo MD follow u for refills 9f7zj853-ny85-70zq-dcac-7mb4q5qpn6zm 06/01/2014 06/01/2014 Oumar Gramajo MD follow u for refills 4kc85885-w80s-3p97-4199-k41k2y433v29 06/01/2014 06/01/2014 Oumar Gramajo MD follow u for refills 9t03532j-8s21-0b79-9116-55873z131mil 06/01/2014 06/01/2014 Oumar Gramajo MD follow u for refills 946qvm56-zny6-34j2-ts0g-j7914122346x 06/01/2014 06/01/2014 Oumar Gramajo MD follow u for refills h01yr0x6-86v0-66o6-18s7-62d9g627k067 06/01/2014 06/01/2014 Oumar Gramajo MD follow u for refills nk553z16-551u-54f7-6x20-1t2615zp2686 06/01/2014 06/01/2014 Oumar Gramajo MD follow u for refills pc4ra871-1057-9l02-1018-0d43je44l0i6 06/01/2014 06/01/2014 Oumar Gramajo MD follow u for refills 879j084j-821b-95ti-4mk4-77348e44j107 06/01/2014 06/01/2014 Oumar Gramajo MD follow u for refills 13509636-b95a-5tl1-540c-598992hr94h0 06/01/2014 06/01/2014 Oumar Gramajo MD follow u for refills [id number]-4ur5ip42w952 06/01/2014 06/01/2014 Oumar Gramajo MD follow u for refills lk41py14-519c-9327-52wr-9fx05gdz51jd 06/01/2014 06/01/2014 Oumar Gramajo MD follow u for refills 8d554hx7-n25e-9h4c-4q6f-956c56180455 06/01/2014 06/01/2014 Oumar Gramajo MD follow u for refills 99532vv9-974e-40z9-2jeg-i1759p011at7 06/01/2014 06/01/2014 Oumar Gramajo MD follow u for refills 9t757ph8-y4ky-2382-rp18-ri0k09p9z0gs 06/01/2014 06/01/2014 Oumar Gramajo MD follow u for refills w2o8111z-km91-6yyy-239q-841357i3y6wu 06/01/2014 06/01/2014 Oumar Gramajo MD follow u for refills b9cf7bj7-7106-2227-ton1-78y486vj1f9b 06/01/2014 06/01/2014 Oumar Gramajo MD follow u for refills 6851k854-4d48-1s28-0525-a490cj343622 06/01/2014 06/01/2014 Oumar Gramajo MD follow u for refills 9p92x674-l5c3-11f7-3w36-dj2p3432v091 06/01/2014 06/01/2014 Oumar Gramajo MD follow u for refills 10o57c7e-t5ey-23mm-0399-5j0n61130tbe 06/01/2014 06/01/2014 Oumar Gramajo MD sulfasalazine v627x1x3-4bc8-9a0g-667q-472e89q1q550 06/04/2014 06/04/2014 Oumar Gramajo MD sulfasalazine 3k37p452-bcwy-7955-22r3-9434272241v9 06/04/2014 06/04/2014 Oumar Gramajo MD sulfasalazine 1097l9q2-470e-4635-5640-k844ydbu8vy4 06/04/2014 06/04/2014 Oumar Gramajo MD sulfasalazine 89846518-140i-8pbw-ce0m-7g2if2568648 06/04/2014 06/04/2014 Oumar Gramajo MD sulfasalazine 13r2284n-on82-8l2z-g2j1-hg9yr56hp164 06/04/2014 06/04/2014 Oumar Gramajo MD sulfasalazine 7a876x3o-5385-7650-57f1-9881cvenr003 06/04/2014 06/04/2014 Oumar Gramajo MD sulfasalazine 77a76486-501s-16mp-5382-2c948478w1k6 06/04/2014 06/04/2014 Oumar Gramajo MD sulfasalazine 361y0o6j-03sr-1u11-6690-spebvoj28906 06/04/2014 06/04/2014 Oumar Gramajo MD sulfasalazine qs1j793p-isc8-4w4i-gn46-2x58f1m79081 06/04/2014 06/04/2014 Oumar Gramajo MD sulfasalazine 0xe0q8w7-9534-315m-ko8n-491tdn69718m 06/04/2014 06/04/2014 Oumar Gramajo MD sulfasalazine dj4085cc-631g-1az7-v729-5g6q9x5qz54k 06/04/2014 06/04/2014 Oumar Gramajo MD sulfasalazine 0yv9448x-7p4v-0l07-vk6v-ty0er48i3e92 06/04/2014 06/04/2014 Oumar Gramajo MD sulfasalazine 05b8f91r-j6x5-3nd1-h539-w6x1z42tl45q 06/04/2014 06/04/2014 Oumar Gramajo MD sulfasalazine 280jz596-j5q5-8553-r9x8-f6ff76h5pct9 06/04/2014 06/04/2014 Oumar Gramajo MD sulfasalazine kqq1t83t-rr9o-3ei8-95ah-30c7d8w5l079 06/04/2014 06/04/2014 Oumar Gramajo MD sulfasalazine 403ip270-8364-673h-k98f-7ba66g75m94k 06/04/2014 06/04/2014 Oumar Gramajo MD sulfasalazine 1h16n9h6-9f30-10d4-1213-re6j4r8k7bkx 06/04/2014 06/04/2014 Oumar Gramajo MD sulfasalazine 796075m3-8p2g-806a-ki2d-8a24756r6855 06/04/2014 06/04/2014 Oumar Gramajo MD sulfasalazine 5bz3t780-bkv1-8fck-c643-84191o70f0k3 06/04/2014 06/04/2014 Oumar Gramajo MD sulfasalazine g8g4p3ya-ay55-51et-1h8t-4565wm853035 06/04/2014 06/04/2014 Oumar Gramajo MD sulfasalazine 18m37s4m-i2bc-0l9s-7sr6-e945p5i2u0q6 06/04/2014 06/04/2014 Oumar Gramajo MD sulfasalazine 9199azcl-gp63-2i95sz35-0m78-9306-i577i4u5336n 06/04/2014 06/04/2014 Oumar Gramajo MD sulfasalazine x1169b72-udts-932o-271s-3645088ei77n 06/04/2014 06/04/2014 Oumar Gramajo MD sulfasalazine 9o71ed7l-55h4-803i-m537-k5j65a18s947 06/04/2014 06/04/2014 Oumar Gramajo MD sulfasalazine 12izyf1g-aa2u-30r5-531y-z056j112vb48 06/04/2014 06/04/2014 Oumar Gramajo MD sulfasalazine 1509qb43-1iz3-71d2-47jz-6nx227908521 06/04/2014 06/04/2014 Oumar Gramajo MD sulfasalazine 5nd236cg-b564-6m84-o434-k91s5v7gv10j 06/04/2014 06/04/2014 Oumar Gramajo MD sulfasalazine h1522l8j-me44-80m4-wpg3-3s6085w5j676 06/04/2014 06/04/2014 Oumar Gramajo MD sulfasalazine g0826769-i905-11ib-d4x2-8243e0tr2d33 06/04/2014 06/04/2014 Oumar Gramajo MD sulfasalazine j49ji9h3-86f8-9883-k67h-345r35r5ue9a 06/04/2014 06/04/2014 Oumar Gramajo MD sulfasalazine z5872xgr-250u-2m50-1711-wu8n65409219 06/04/2014 06/04/2014 Oumar Gramajo MD Refill- Tramadol j5384cx3-2120-1089-0cv6-0vw286sv557m 07/21/2014 07/21/2014 Oumar Gramajo MD Refill- Tramadol zf96lqo1-9u5f-9w35-7c57-w9s8q444531q 07/21/2014 07/21/2014 Oumar Gramajo MD Refill- Tramadol 706d1u91-v940-168b-m52d-50959t3l580w 07/21/2014 07/21/2014 Oumar Gramajo MD Refill- Tramadol 47i66o5y-58g2-6k45-k023-5v8rl3290t86 07/21/2014 07/21/2014 Oumar Gramajo MD Refill- Tramadol d426ur04-7e00-9ypj-946y-bi648251iamq 07/21/2014 07/21/2014 Oumar Gramajo MD Refill- Tramadol t8937mei-8z15-9247-58aa-kv65wsvr8vk0 07/21/2014 07/21/2014 Oumar Gramajo MD Refill- Tramadol 3927f2mn-7va6-4x3t-9985-30k4z8q626b0 07/21/2014 07/21/2014 Oumar Gramajo MD Refill- Tramadol y8kej0q3-8574-733j-bx8y-y8p70sa11794 07/21/2014 07/21/2014 Oumar Gramajo MD Refill- Tramadol dm4376dn-xh6k-91l5-m082-56796ai32t86 07/21/2014 07/21/2014 Oumar Gramajo MD Refill- Tramadol 2675xzg4-hyfi-6m5c-25d1-q096179026qz 07/21/2014 07/21/2014 Oumar Gramajo MD Refill- Tramadol 076v1863-63s7-79z5-x191-f695g44zf536 07/21/2014 07/21/2014 Oumar Gramajo MD Refill- Tramadol evw679i9-xb36-8f9a-8136-3g299bq1hk00 07/21/2014 07/21/2014 Oumar Gramajo MD Refill- Tramadol 525f8k51-9142-160o-2354-c9g4a4z7407i 07/21/2014 07/21/2014 Oumar Gramajo MD Refill- Tramadol t352q08h-6w86-7y7z-95ah-4waxj11sn5ta 07/21/2014 07/21/2014 Oumar Gramajo MD Refill- Tramadol y459z46o-0ahm-1753-97v8-34539w42972a 07/21/2014 07/21/2014 Oumar Gramajo MD Refill- Tramadol 865kh0pd-xv63-71he-i619-501wd94jp31f 07/21/2014 07/21/2014 Oumar Gramajo MD Refill- Tramadol 96g987lq-o058-377i-5521-40251t28hpu6 07/21/2014 07/21/2014 Oumar Gramajo MD Refill- Tramadol 105e709c-gh7b-29a1-514s-3r96t5n67j4q 07/21/2014 07/21/2014 Oumar Gramajo MD Refill- Tramadol rre72g81-160o-807n-b109-a6166sx079n3 07/21/2014 07/21/2014 Oumar Gramajo MD Refill- Tramadol 96630j9o-5q4i-5433-fs75-390o4m0j2z0s 07/21/2014 07/21/2014 Oumar Gramajo MD Refill- Tramadol 3d97b4p1-5305-6047-fu19-3626rh8371q8 07/21/2014 07/21/2014 Oumar Gramajo MD Refill- Tramadol 547upb12-69p6-7u95-34j1-yum882ktp5wz 07/21/2014 07/21/2014 Oumar Gramajo MD Refill- Tramadol o30471mi-3965-0u0a-5895-k13813l7tt09 07/21/2014 07/21/2014 Oumar Gramajo MD Refill- Tramadol 14797z72-162g-9slt-x745-kwpq6sr41fq4 07/21/2014 07/21/2014 Ouamr Gramajo MD Refill- Tramadol kqc50q67-52k7-6455-xn58-124w8fh9i94b 07/21/2014 07/21/2014 Oumar Gramajo MD Refill- Tramadol 38855424-8734-9936-y6i6-01rlgm5475i7 07/21/2014 07/21/2014 Oumar Gramajo MD Refill- Tramadol 4nr72420-pu05-597o-92cg-1en01f449912 07/21/2014 07/21/2014 Oumar Gramajo MD Refill- Tramadol 2b0s0l58-67z8-7x9z-hk0k-2t098hn305b5 07/21/2014 07/21/2014 Oumar Gramajo MD Refill- Tramadol 0172byb9-71i1-7vv8-w5c6-897r813384tq 07/21/2014 07/21/2014 Oumar Gramajo MD tramadol- refill dn82se2l-8hnc-70m8-d4e9-3077rl352zj7 08/20/2014 08/20/2014 Oumar Gramajo MD tramadol- refill 9ff46703-38s8-871g-8008-tf15823m77rc 08/20/2014 08/20/2014 Oumar Gramajo MD tramadol- refill 9k0699me-w9nb-1n6r-5808-a57u73r002sl 08/20/2014 08/20/2014 Oumar Gramajo MD tramadol- refill 59v4pzao-y322-6274-5v8l-2sjs57i4078l 08/20/2014 08/20/2014 Oumar Gramajo MD tramadol- refill 9t961147-8at2-8u74-l04d-887j71xg7b8v 08/20/2014 08/20/2014 Oumar Gramajo MD tramadol- refill 0qy008v9-2s00-602t-e2n1-w3260do0c9sw 08/20/2014 08/20/2014 Oumar Gramajo MD tramadol- refill v7532785-m098-998x-ft9z-052u870x3164 08/20/2014 08/20/2014 Oumar Gramajo MD tramadol- refill d581l437-ekin-8gv8-5n7g-94f16a71o7r3 08/20/2014 08/20/2014 Oumar Gramajo MD tramadol- refill 700794m9-bno3-23f6-jzn6-p6296e468s7h 08/20/2014 08/20/2014 Oumar Gramajo MD tramadol- refill 2lxw07t4-k686-6905-s824-9lm82go59u5a 08/20/2014 08/20/2014 Oumar Gramajo MD tramadol- refill 136145c1-y659-292a-6h0g-o9gc836379pg 08/20/2014 08/20/2014 Oumar Gramajo MD tramadol- refill 7s366yd1-7p02-212q-31u6-awx50f134k21 08/20/2014 08/20/2014 Oumar Gramajo MD tramadol- refill 52387054-4539-97w2-8jx5-57b8yb550p0w 08/20/2014 08/20/2014 Oumar Gramajo MD tramadol- refill 3asoglz2-27je-9689-x8x2-s0313o88406t 08/20/2014 08/20/2014 Oumar Gramajo MD tramadol- refill 8rh3gl7s-8p14-6ji3-57y4-4059t960zz0u 08/20/2014 08/20/2014 Oumar Gramajo MD tramadol- refill 190hr411-0375-7p71-7oj2-ks418oeu8o65 08/20/2014 08/20/2014 Oumar Gramajo MD tramadol- refill 3q8nily8-4118-7s40-t8c9-554j0f8j9604 08/20/2014 08/20/2014 Oumar Gramajo MD tramadol- refill 7177081u-x3s0-5mn7-l060-u6crbz1272pm 08/20/2014 08/20/2014 Oumar Gramajo MD tramadol- refill 284517ke-s838-3z83-g3ds-5u94i9msj320 08/20/2014 08/20/2014 Oumar Gramajo MD tramadol- refill 9349sisb-67n7-48gs67r7-25do-3319-0y3ba6142g25 08/20/2014 08/20/2014 Oumar Gramajo MD tramadol- refill 926he721-3m5s-8d8s-85b4-yb93w66833j8 08/20/2014 08/20/2014 Oumar Gramajo MD tramadol- refill be406v21-x7o5-4c54-z104-w9veq89is57m 08/20/2014 08/20/2014 Oumar Gramajo MD tramadol- refill 4m4rxag2-uf16-0dn0-178t-eg9mexc0f3o6 08/20/2014 08/20/2014 Oumar Gramajo MD tramadol- refill dmirru7d-k531-5xfg-h65u-8fnpu64k1d79 08/20/2014 08/20/2014 Oumar Gramajo MD tramadol- refill 1apzeh5p-630b-41r5-gklo-17f79gjljh42 08/20/2014 08/20/2014 Oumar Gramajo MD tramadol- refill h4355d0h-f292-9n4p-iix0-kyq94z952446 08/20/2014 08/20/2014 Oumar Gramajo MD tramadol- refill sjo86e48-2tji-2967-s1vy-1rv937j00z38 08/20/2014 08/20/2014 Oumar Gramajo MD tramadol- refill 09198864-7xki-9053-9l3n-4011x58j3dq3 08/20/2014 08/20/2014 Oumar Gramajo MD tramadol- refill 58hf024j-4102-9o1s-y412-l77x663o0b0d 08/20/2014 08/20/2014 Oumar Gramajo [facility] Report [id number] Kelechi Peacock MD 09/07/2014 09/07/2014 [facility] [place] Gramajo MD RX Request-- Sulfasalazine 23p3szu0-34f2-2z73-v160-3n59k1227jz8 09/20/2014 09/20/2014 Oumar Gramajo MD RX Request-- Sulfasalazine wx89o5y8-31b9-5w0c-y54u-i0n7qh0l33y2 09/20/2014 09/20/2014 Oumar Gramajo MD RX Request-- Sulfasalazine 6936430p-r4e1-222i-yg21-6h6719l3o83p 09/20/2014 09/20/2014 Oumar Gramajo MD RX Request-- Sulfasalazine s77c7o89-130o-2sx6-4921-76e40r8ib746 09/20/2014 09/20/2014 Oumar Gramajo MD RX Request-- Sulfasalazine s06164lf-kl6w-931m-j5h7-z1r613o1766s 09/20/2014 09/20/2014 Oumar Gramajo MD RX Request-- Sulfasalazine 3n151y60-pd04-0rmb-e5k6-3t69eb2q3r11 09/20/2014 09/20/2014 Oumar Gramajo MD RX Request-- Sulfasalazine 21p37815-9yv8-6178-7k9r-uz71d76z91w0 09/20/2014 09/20/2014 Oumar Gramajo MD RX Request-- Sulfasalazine 71iq2q1c-san0-6063-j08z-15o2nu7a9s76 09/20/2014 09/20/2014 Oumar Gramajo MD RX Request-- Sulfasalazine 4bpql96z-07cy-116w-5329-r8y5b0f38s1n 09/20/2014 09/20/2014 Oumar Gramajo MD RX Request-- Sulfasalazine ma33id02-dv04-45k1-ei3v-j0c84857z1ce 09/20/2014 09/20/2014 Oumar Gramajo MD RX Request-- Sulfasalazine 1744lrjo-6w48-31a38o90-58k6-9137-238fjt168ds4 09/20/2014 09/20/2014 Oumar Gramajo MD RX Request-- Sulfasalazine xl9b8ao6-r33r-16t3-59sl-j1xg537mdeb8 09/20/2014 09/20/2014 Oumar Gramajo MD RX Request-- Sulfasalazine 234bm426-0205-5509-3453-gxu1kyi23luv 09/20/2014 09/20/2014 Oumar Gramajo MD RX Request-- Sulfasalazine 0v7ht8c8-73a6-4484-1971-l949ix9651o1 09/20/2014 09/20/2014 Oumar Gramajo MD RX Request-- Sulfasalazine 56m3obc7-u22f-8q4x-1012-qf456774t021 09/20/2014 09/20/2014 Oumar Gramajo MD RX Request-- Sulfasalazine 9r068315-rw9d-5lhz-u8x1-80399iw0680p 09/20/2014 09/20/2014 Oumar Gramajo MD RX Request-- Sulfasalazine 78696759-3476-4y22-t9k2-69mob3qdjt30 09/20/2014 09/20/2014 Oumar Gramajo MD RX Request-- Sulfasalazine ztc61293-f5z0-5962-b333-0193f3w21680 09/20/2014 09/20/2014 Oumar Gramajo MD RX Request-- Sulfasalazine 054bifz3-39x3-55be-o4nm-pw5pq6j515s2 09/20/2014 09/20/2014 Oumar Gramajo MD RX Request-- Sulfasalazine 61lsf387-9zjy-535o-g52m-165zpy9d9z56 09/20/2014 09/20/2014 Oumar Gramajo MD RX Request-- Sulfasalazine i1e10dka-3664-314f-5o60-3r63gd8q115c 09/20/2014 09/20/2014 Oumar Gramajo MD RX Request-- Sulfasalazine 47y5926c-etk5-15ai-7ic7-4ge22g2ya1c8 09/20/2014 09/20/2014 Oumar Gramajo MD RX Request-- Sulfasalazine 6cz300ds-3514-9sqs-ylrw-81h5z5n6x344 09/20/2014 09/20/2014 Oumar Gramajo MD RX Request-- Sulfasalazine 014ij389-4ft9-2280-r207-n0lf6uw6q47z 09/20/2014 09/20/2014 Oumar Gramajo MD RX Request-- Sulfasalazine y72i68q4-d873-4wl1-6490-789p3435950q 09/20/2014 09/20/2014 Oumar Gramajo MD RX Request-- Sulfasalazine 430386ix-f349-6230-6u50-8j4i3u4po1o9 09/20/2014 09/20/2014 Oumar Gramajo MD RX Request-- Sulfasalazine 8289w4ru-8791-1v7t-pa6v-7rb48nx39jv1 09/20/2014 09/20/2014 Oumar Gramajo MD RX Request-- Naproxen w69sal59-jbbo-2hc3-b9e9-a186sw4h2kx2 09/22/2014 09/22/2014 Oumar Gramajo MD RX Request-- Naproxen 1p151h39-o9h3-5g08-x990-5g648888df46 09/22/2014 09/22/2014 Oumar Gramajo MD RX Request-- Naproxen 7q8rv58i-03iy-4t96-5686-o365fw684ltr 09/22/2014 09/22/2014 Oumar Gramajo MD RX Request-- Naproxen jx88k671-026a-1s45-7172-k1ibz54q77f4 09/22/2014 09/22/2014 Oumar Gramajo MD RX Request-- Naproxen 788b4q9m-306y-4138-uq88-4i6e062s8nb5 09/22/2014 09/22/2014 Oumar Gramajo MD RX Request-- Naproxen 526h3sd4-37h1-8r29-7r0f-h4124q815576 09/22/2014 09/22/2014 Oumar Gramajo MD RX Request-- Naproxen 4kye238h-f4q8-6996-65c5-809ap3l2k23b 09/22/2014 09/22/2014 Oumar Gramajo MD RX Request-- Naproxen 6587080r-m68z-3a14-dm6e-6zk713w0130x 09/22/2014 09/22/2014 Oumar Gramajo MD RX Request-- Naproxen 468ao009-669d-2snu-m71t-b1hwe2q0i6cv 09/22/2014 09/22/2014 Oumar Gramajo MD RX Request-- Naproxen mt26y1d4-98p6-36hc-v3f0-zd633m847111 09/22/2014 09/22/2014 Oumar Gramajo MD RX Request-- Naproxen ir40q10t-1n86-2yks-u89r-9p0m4174n94o 09/22/2014 09/22/2014 Oumar Gramajo MD RX Request-- Naproxen 71e85037-24e7-0867-13g0-7735053514t5 09/22/2014 09/22/2014 Oumar Gramajo MD RX Request-- Naproxen 93a09604-43yw-70rf-m1q4-z5a679cv71sg 09/22/2014 09/22/2014 Oumar Gramajo MD RX Request-- Naproxen 84m91a20-6704-004b-z274-5p3uc3267p30 09/22/2014 09/22/2014 Oumar Gramajo MD RX Request-- Naproxen 6y6y03w3-jqm9-183z-0304-274213721408 09/22/2014 09/22/2014 Oumar Gramajo MD RX Request-- Naproxen [id number] 09/22/2014 09/22/2014 Oumar Gramajo MD RX Request-- Naproxen [id number] 09/22/2014 09/22/2014 Oumar Gramajo MD RX Request-- Naproxen [id number] 09/22/2014 09/22/2014 Oumar Gramajo MD RX Request-- Naproxen [id number] 09/22/2014 09/22/2014 Oumar Gramajo MD RX Request-- Naproxen [id number] 09/22/2014 09/22/2014 Oumar Gramajo MD RX Request-- Naproxen [id number] 09/22/2014 09/22/2014 Oumar Gramajo MD RX Request-- Naproxen [id number] 09/22/2014 09/22/2014 Oumar Gramajo MD RX Request-- Naproxen [id number] 09/22/2014 09/22/2014 Oumar Gramajo MD RX Request-- Naproxen [id number] 09/22/2014 09/22/2014 Oumar Gramajo MD RX Request-- Naproxen [id number] 09/22/2014 09/22/2014 Oumar Gramajo MD RX Request-- Naproxen [id number] 09/22/2014 09/22/2014 Oumar Gramajo MD Refill- Naproxen [id number] 09/24/2014 09/24/2014 Oumar Gramajo MD Refill- Naproxen [id number] 09/24/2014 09/24/2014 Oumar Gramajo MD Refill- Naproxen [id number]-739i00u0p68x 09/24/2014 09/24/2014 Oumar Gramajo MD Refill- Naproxen [id number]-[id number] 09/24/2014 09/24/2014 Oumar Gramajo MD Refill- Naproxen [id number] 09/24/2014 09/24/2014 Oumar Gramajo MD Refill- Naproxen [id number] 09/24/2014 09/24/2014 Oumar Gramajo MD Refill- Naproxen [id number] 09/24/2014 09/24/2014 Oumar Gramajo MD Refill- Naproxen [id number] 09/24/2014 09/24/2014 Oumar Gramajo MD Refill- Naproxen [id number] 09/24/2014 09/24/2014 Oumar Gramajo MD Refill- Naproxen [id number]-[id number]-[id number] 09/24/2014 09/24/2014 Oumar Gramajo MD Refill- Naproxen [id number] 09/24/2014 09/24/2014 Oumar Gramajo MD Refill- Naproxen [id number] 09/24/2014 09/24/2014 Oumar Gramajo MD Refill- Naproxen [id number] 09/24/2014 09/24/2014 Oumar Gramajo MD Refill- Naproxen [id number]-92ag-74wo-[id number] 09/24/2014 09/24/2014 Oumar Gramajo MD Refill- Naproxen [id number] 09/24/2014 09/24/2014 Oumar Gramajo MD Refill- Naproxen [id number] 09/24/2014 09/24/2014 Oumar Gramajo MD Refill- Naproxen [id number] 09/24/2014 09/24/2014 Oumar Gramajo MD Refill- Naproxen [id number] 09/24/2014 09/24/2014 Oumar Gramajo MD Refill- Naproxen [id number]-[id number] 09/24/2014 09/24/2014 Oumar Gramajo MD Refill- Naproxen [id number] 09/24/2014 09/24/2014 Oumar Gramajo MD Refill- Naproxen [id number]-x155-1di79i4p735o 09/24/2014 09/24/2014 Oumar Gramajo MD Refill- Naproxen [id number]-p44t-ui05pofv3k3d 09/24/2014 09/24/2014 Oumar Gramajo MD Refill- Naproxen [id number]-[id number]-676n32p46d12 09/24/2014 09/24/2014 Oumar Gramajo MD Refill- Naproxen [id number]-[id number] 09/24/2014 09/24/2014 Oumar Gramajo MD Refill- Naproxen [id number]-efxb-4xif-8228-076w3cn24sst 09/24/2014 09/24/2014 Oumar Gramajo MD Refill- Naproxen [id number] 09/24/2014 09/24/2014 Oumar Gramajo MD DEXA [id number] 10/15/2014 10/15/2014 Oumar Gramajo MD DEXA [id number] 10/15/2014 10/15/2014 Oumar Gramajo MD DEXA [id number] 10/15/2014 10/15/2014 Oumar Gramajo MD DEXA [id number] 10/15/2014 10/15/2014 Oumar Gramajo MD DEXA [id number] 10/15/2014 10/15/2014 Oumar Gramajo MD DEXA [id number] 10/15/2014 10/15/2014 Oumar Gramajo MD DEXA [id number]-[id number] 10/15/2014 10/15/2014 Oumar Gramajo MD DEXA [id number] 10/15/2014 10/15/2014 Oumar Gramajo MD DEXA [id number] 10/15/2014 10/15/2014 Oumar Gramajo MD DEXA [id number] 10/15/2014 10/15/2014 Oumar Gramajo MD DEXA [id number]-[id number] 10/15/2014 10/15/2014 Oumar Gramajo MD DEXA [id number] 10/15/2014 10/15/2014 Oumar Gramajo MD DEXA [id number] 10/15/2014 10/15/2014 Oumar Gramajo MD [facility] [id number] 10/15/2014 10/15/2014 Oumar Gramajo MD [facility] [place] [id number] 10/15/2014 10/15/2014 Oumar Gramajo MD [facility] [id number] 10/15/2014 10/15/2014 Oumar Gramajo MD [facility] [id number] 10/15/2014 10/15/2014 Oumar Gramajo MD [facility] [id number] 10/15/2014 10/15/2014 Oumar Gramajo MD [facility] [id number] 10/15/2014 10/15/2014 Oumar Gramajo MD [facility] [place] [id number] 10/15/2014 10/15/2014 Oumar Gramajo MD [facility] [place] [id number] 10/15/2014 10/15/2014 Oumar Gramajo MD [facility] [place] [id number] 10/15/2014 10/15/2014 Oumar Gramajo MD [facility] [id number] 10/15/2014 10/15/2014 Oumar Gramajo MD [facility] [id number] 10/15/2014 10/15/2014 Oumar Gramajo MD [facility] [id number] 10/15/2014 10/15/2014 Oumar Gramajo MD [facility] [id number] 10/15/2014 10/15/2014 Oumar Gramajo MD DEXA [id number] 10/15/2014 10/15/2014 Oumar Gramajo MD DEXA [id number] 10/15/2014 10/15/2014 Oumar Gramajo MD DEXA [id number] 10/15/2014 10/15/2014 Oumar Gramajo MD DEXA [id number] 10/15/2014 10/15/2014 Oumar Gramajo MD DEXA [id number] 10/15/2014 10/15/2014 Oumar Gramajo MD DEXA [id number] 10/15/2014 10/15/2014 Oumar Gramajo MD DEXA [id number] 10/15/2014 10/15/2014 Oumar Gramajo MD DEXA [id number] 10/15/2014 10/15/2014 Oumar Gramajo MD DEXA [id number] 10/15/2014 10/15/2014 Oumar Gramajo MD DEXA [id number] 10/15/2014 10/15/2014 Oumar Gramajo MD DEXA [id number] 10/15/2014 10/15/2014 Oumar Gramajo MD [facility] [place] [id number] 10/15/2014 10/15/2014 Oumar Gramajo MD [facility] [place] [id number] 10/15/2014 10/15/2014 Oumar Gramajo MD [facility] [place] [id number]-[id number] 10/15/2014 10/15/2014 Oumar Gramajo MD [facility] [place] [id number] 10/15/2014 10/15/2014 Oumar Gramajo MD [facility] [place] [id number] 10/15/2014 10/15/2014 Oumar Gramajo MD [facility] [place] [id number] 10/15/2014 10/15/2014 Oumar Gramajo MD [facility] [id number]-lc3tz2744f3t 10/15/2014 10/15/2014 Oumar Gramajo MD [facility] [id number] 10/15/2014 10/15/2014 Oumar Gramajo MD [facility] [id number] 10/15/2014 10/15/2014 Oumar Gramajo MD [facility] [id number] 10/15/2014 10/15/2014 Oumar Gramajo MD Follow up--End of Nov [id number] 11/22/2014 11/22/2014 Oumar Gramajo MD Follow up--End of Nov [id number] 11/22/2014 11/22/2014 Oumar Gramajo MD Follow up--End of Nov [id number] 11/22/2014 11/22/2014 Oumar Gramajo MD Follow up--End of Nov [id number] 11/22/2014 11/22/2014 Oumar Gramajo MD Follow up--End of Nov [id number] 11/22/2014 11/22/2014 Oumar Gramajo MD Follow up--End of Nov [id number] 11/22/2014 11/22/2014 Oumar Gramajo MD Follow up--End of Nov [id number] 11/22/2014 11/22/2014 Oumar Gramajo MD Follow up--End of Nov [id number] 11/22/2014 11/22/2014 Oumar Gramajo MD Follow up--End of Nov [id number] 11/22/2014 11/22/2014 Oumar Gramajo MD Follow up--End of Nov [id number] 11/22/2014 11/22/2014 Oumar Gramajo MD Follow up--End of Nov [id number] 11/22/2014 11/22/2014 Oumar Gramajo MD Follow up--End of Adam [id number]-[id number] 11/22/2014 11/22/2014 Oumar Gramajo MD Follow up--End of Adam [id number] 11/22/2014 11/22/2014 Oumar Gramajo MD Follow up--End of Adam [id number] 11/22/2014 11/22/2014 Oumar Gramajo MD Follow up--End of Adam [id number]-[id number] 11/22/2014 11/22/2014 Oumar Gramajo MD Follow up--End of Adam [id number] 11/22/2014 11/22/2014 Oumar Gramajo MD Follow up--End of Nov [id number] 11/22/2014 11/22/2014 Oumar Gramajo MD Follow up--End of Adam [id number]-24d5-6kgk-51qp-ufh4eo71s914 11/22/2014 11/22/2014 Oumar Gramajo MD Follow up--End of Adam [id number]-[id number] 11/22/2014 11/22/2014 Oumar Gramajo MD Follow up--End of Nov [id number]-[id number] 11/22/2014 11/22/2014 Oumar Gramajo MD Follow up--End of Nov [id number] 11/22/2014 11/22/2014 Oumar Gramajo MD Follow up--End of Nov [id number]-[id number]-b52d-55115mmg6jzp 11/22/2014 11/22/2014 Oumar Gramajo MD Add on 01/06 [id number]-6x72-f4h2-5j0e0891695s 01/05/2015 01/05/2015 Oumar Gramajo MD Add on 01/06 [id number]-ff54-47b4-pr55-3297q6c41g80 01/05/2015 01/05/2015 Oumar Gramajo MD Add on 01/06 [id number]-q902-14t7-4ul5-ora6k966v77n 01/05/2015 01/05/2015 Oumar Gramajo MD Add on 01/06 [id number]-tkt0-[id number] 01/05/2015 01/05/2015 Oumar Gramajo MD Add on 01/06 [id number]-gq95-7nc86f9p1835 01/05/2015 01/05/2015 Oumar Gramajo MD Add on 01/06 [id number]-eex1-8772-e84r-0336s401gg4c 01/05/2015 01/05/2015 Oumar Gramajo MD Add on 01/06 87wxn6fi-3983-74gw-0hkb-160eedfj7nv7 01/05/2015 01/05/2015 Oumar Gramajo MD Add on 01/06 2n6s4l8k-ep45-1584-ply0-9n739ww41679 01/05/2015 01/05/2015 Oumar Gramajo MD Add on 01/06 3u73k304-u5v1-4uz2-j4uj-038e23i3w782 01/05/2015 01/05/2015 Oumar Gramajo MD Add on 01/06 kiv95muv-7e4v-6040-84h7-to067fhaoevl 01/05/2015 01/05/2015 Oumar Gramajo MD Add on 01/06 py0z67u6-2460-6018-q1c9-1187xv1mx86z 01/05/2015 01/05/2015 Oumar Gramajo MD Add on 01/06 v57c9739-1273-41o8-98z8-w942796pslc0 01/05/2015 01/05/2015 Oumar Gramajo MD Add on 01/06 f3jl9lix-2808-2ezh-72vk-n4k2w268vv00 01/05/2015 01/05/2015 Oumar Gramajo MD Add on 01/06 o19z9918-i359-7280-c2uh-565ia3eodr2o 01/05/2015 01/05/2015 Oumar Gramajo MD Add on 01/06 8g4d7m98-i420-6255-d952-q67n3s12g4y7 01/05/2015 01/05/2015 Oumar Gramajo MD Add on 01/06 75074x9m-n7ee-1358-2363-uj2u7kf651t5 01/05/2015 01/05/2015 Oumar Gramajo MD Add on 01/06 428e15s4-5q7x-374a-z9y7-a20s0u68z675 01/05/2015 01/05/2015 Oumar Gramajo MD Add on 01/06 56e73kmn-r7v3-8o13-4za8-9652p1gm86l1 01/05/2015 01/05/2015 Oumar Gramajo MD Add on 01/06 [id number]-ch9q-573r-m41p-27o43s4509fn 01/05/2015 01/05/2015 Oumar Gramajo MD Add on 01/06 ay887jba-001l-208n-840p-fo2h96166779 01/05/2015 01/05/2015 Oumar Gramajo MD Add on 01/06 9t844xe2-z241-5q14-r91q-938n5z55m847 01/05/2015 01/05/2015 Oumar Gramajo MD f/u 6557z9t1-r1p9-64o9-28r2-ll1c39r49e23 01/06/2015 01/06/2015 Oumar Gramajo MD f/u 840wgek2-8r4v-7455-16sq-254969ms3ma0 01/06/2015 01/06/2015 Oumar Gramajo MD f/u t129q9z2-mmf1-9785-58i0-53ktesid4g55 01/06/2015 01/06/2015 Oumar Gramajo MD f/u 037hss91-7j9x-5v00-7yn7-th8f08n3bv8q 01/06/2015 01/06/2015 Oumar Gramajo MD f/u sg76a05y-rp9e-04m4-1033-27lg3gr9d55i 01/06/2015 01/06/2015 Oumar Gramajo MD f/u [id number]-b419-7159u9118x29 01/06/2015 01/06/2015 Oumar Gramajo MD f/u m1da17z8-win1-06i3-8k2b-5b02zh4e2q8b 01/06/2015 01/06/2015 Oumar Gramajo MD f/u 8433we65-w9a1-8259-p435-1u52fu3960a7 01/06/2015 01/06/2015 Oumar Gramajo MD f/u 7v6120v0-yp0b-8628-mka4-397mc8l27296 01/06/2015 01/06/2015 Oumar Gramajo MD f/u 9537m094-0trn-6493-a709-192we7651y22 01/06/2015 01/06/2015 Oumar Gramajo MD f/u 2ffl2p05-74v5-25j4-7332-20pb5pua80hb 01/06/2015 01/06/2015 Oumar Gramajo MD f/u [id number]-f370-1hw9164ap1bl 01/06/2015 01/06/2015 Oumar Gramajo MD f/u 4a3698b6-v76b-4673-275f-358c0ajsdt0n 01/06/2015 01/06/2015 Oumar Gramajo MD f/u 65s67n27-08h8-440w-jj58-9s1d830gm4nv 01/06/2015 01/06/2015 Oumar Gramajo MD f/u 79jkq476-lu31-25jd-a880-xu7010950x77 01/06/2015 01/06/2015 Oumar Gramajo MD f/u 6m2i4911-67un-9q5e-e9pk-67tt9zred1fs 01/06/2015 01/06/2015 Oumar Gramajo MD f/u y49o589q-0663-2z96-7q4p-118w1ew6o6ea 01/06/2015 01/06/2015 Oumar Gramajo MD f/u inoe1454-4u47-899h-hk5p-98gn22bn79vz 01/06/2015 01/06/2015 Oumar Gramajo MD f/u 7rkjg1ze-667n-7712-smlu-d8u28qb7p5x1 01/06/2015 01/06/2015 Oumar Gramajo MD f/u 7mku57ut-id39-8s76-eztf-7i740d053f68 01/06/2015 01/06/2015 Oumar Gramajo MD DEXA 5qcf7ax1-g6y8-5802-208x-3et53pb130vg 01/06/2015 01/06/2015 Oumar Gramajo MD DEXA c60260jn-kg79-4b2q-6i0v-17527nh850d4 01/06/2015 01/06/2015 Oumar Gramajo MD DEXA 9f7g8926-dz20-715v-cb50-i8e116606b0l 01/06/2015 01/06/2015 Oumar Gramajo MD DEXA 13ug56lf-dj56-6v3x-08ax-a12ft79732g6 01/06/2015 01/06/2015 Oumar Gramajo MD DEXA ct1ym0k3-i5r6-30i2-n280-5326q40151g6 01/06/2015 01/06/2015 Oumar Gramajo MD DEXA 018632jg-19h5-3515-lp61-h77n6j2yxl7i 01/06/2015 01/06/2015 Oumar Gramajo MD DEXA 9a2o5441-dov4-833o-7542-b0439n82v9mg 01/06/2015 01/06/2015 Oumar Gramajo MD DEXA wk833sb5-1k4p-4hq7-y7m5-59vj8606e8nt 01/06/2015 01/06/2015 Oumar Gramajo MD DEXA 6r09c63c-1l85-8dol-cw7f-36r80f0zl92y 01/06/2015 01/06/2015 Oumar Gramajo MD DEXA 597lp88s-9305-4o2t-x42s-i730390an1t5 01/06/2015 01/06/2015 Oumar Gramajo MD DEXA v72e008o-wt6f-74tx-yd77-4n8mji58h42m 01/06/2015 01/06/2015 Oumar Gramajo MD DEXA 4548n389-584r-18rc-3o1k-azz01607j8gg 01/06/2015 01/06/2015 Oumar Gramajo MD DEXA l19lofp1-8671-85o9-d021-f524wk244363 01/06/2015 01/06/2015 Oumar Gramajo MD DEXA 6u0xb7n4-6e75-95xf-f2l7-7q82g76384h8 01/06/2015 01/06/2015 Oumar Gramajo MD DEXA mwd30182-h271-084k-eo73-50i5xj752796 01/06/2015 01/06/2015 Oumar Gramajo MD DEXA 5562766c-2j1v-4206-n65p-362cb8642p16 01/06/2015 01/06/2015 Oumar Gramajo MD DEXA l69s6o7r-rzz9-328q-8l74-15wrc35i038a 01/06/2015 01/06/2015 Oumar Gramajo MD DEXA 44a44r55-a629-5v35-nivh-86amn3nchbg3 01/06/2015 01/06/2015 Oumar Gramajo MD DEXA [id number]-a085707f463c 01/06/2015 01/06/2015 Oumar Gramajo MD DEXA 1w68i90b-038i-75g9-4yk7-1t4n10i314i9 01/06/2015 01/06/2015 Oumar Gramajo MD DEXA gtq52kd0-3k7k-8363-0152-8yi87h83br11 01/06/2015 01/06/2015 Oumar Gramajo MD Records Request [id number] 01/06/2015 01/06/2015 Oumar Gramajo MD Records Request [id number] 01/06/2015 01/06/2015 Oumar Gramajo MD Records Request [id number] 01/06/2015 01/06/2015 Oumar Gramajo MD Records Request [id number] 01/06/2015 01/06/2015 Oumar Gramajo MD Records Request [id number] 01/06/2015 01/06/2015 Oumar Gramajo MD Records Request [id number] 01/06/2015 01/06/2015 Oumar Gramajo MD Records Request [id number] 01/06/2015 01/06/2015 Oumar Gramajo MD Records Request [id number] 01/06/2015 01/06/2015 Oumar Gramajo MD Records Request [id number] 01/06/2015 01/06/2015 Oumar Gramajo MD Records Request [id number] 01/06/2015 01/06/2015 Oumar Gramajo MD Records Request [id number] 01/06/2015 01/06/2015 Oumar Gramajo MD Records Request [id number] 01/06/2015 01/06/2015 Oumar Gramajo MD Records Request [id number] 01/06/2015 01/06/2015 Oumar Gramajo MD Records Request [id number] 01/06/2015 01/06/2015 Oumar Gramajo MD Records Request [id number] 01/06/2015 01/06/2015 Oumar Gramajo MD Records Request [id number] 01/06/2015 01/06/2015 Oumar Gramajo MD Records Request [id number] 01/06/2015 01/06/2015 Oumar Gramajo MD Records Request [id number] 01/06/2015 01/06/2015 Oumar Gramajo MD Records Request [id number] 01/06/2015 01/06/2015 Oumar Gramajo MD Records Request [id number] 01/06/2015 01/06/2015 Oumar Gramajo MD Records Request [id number] 01/06/2015 01/06/2015 Oumar Gramajo MD RX Dispense Issue [id number] 01/07/2015 01/07/2015 Oumar Gramajo MD RX Dispense Issue [id number] 01/07/2015 01/07/2015 Oumar Gramajo MD RX Dispense Issue [id number]-ztth-039cul4t278d 01/07/2015 01/07/2015 Oumar Gramajo MD RX Dispense Issue [id number] 01/07/2015 01/07/2015 Oumar Gramajo MD RX Dispense Issue [id number]-[id number] 01/07/2015 01/07/2015 Oumar Gramajo MD RX Dispense Issue [id number]-0q8b-82ib-3ew9cs7m863p 01/07/2015 01/07/2015 Oumar Gramajo MD RX Dispense Issue [id number]-[id number]-rw19c8h6rh0x 01/07/2015 01/07/2015 Oumar Gramajo MD RX Dispense Issue [id number]-h5080b75d8c1 01/07/2015 01/07/2015 Oumar Gramajo MD RX Dispense Issue [id number]-474u-95c6-07mq7e1u4kog 01/07/2015 01/07/2015 Oumar Gramajo MD RX Dispense Issue [id number]-bwo7-fx786110w73k 01/07/2015 01/07/2015 Oumar Gramajo MD RX Dispense Issue [id number]-[id number] 01/07/2015 01/07/2015 Oumar Gramajo MD RX Dispense Issue [id number]-e49d-p0jjp59h3r34 01/07/2015 01/07/2015 Oumar Gramajo MD RX Dispense Issue [id number]-565vos022r9i 01/07/2015 01/07/2015 Oumar Gramajo MD RX Dispense Issue [id number]-[id number]-[id number] 01/07/2015 01/07/2015 Oumar Gramajo MD RX Dispense Issue [id number]-[id number] 01/07/2015 01/07/2015 Oumar Gramajo MD RX Dispense Issue [id number]-[id number] 01/07/2015 01/07/2015 Oumar Gramajo MD RX Dispense Issue [id number]-5789-vj4n-q7e98vi906l9 01/07/2015 01/07/2015 Oumar Gramajo MD RX Dispense Issue [id number] 01/07/2015 01/07/2015 Oumar Gramajo MD RX Dispense Issue [id number] 01/07/2015 01/07/2015 Oumar Gramajo MD RX Dispense Issue [id number]-[id number] 01/07/2015 01/07/2015 Oumar Gramajo MD RX Dispense Issue [id number]-88z0-u9k8-80m7nm0ax17v 01/07/2015 01/07/2015 Oumar Gramajo MD Pain Mgmt 339r83v8-4j65-8880-v982-6zeu555r80h5 03/08/2015 03/08/2015 Oumar Gramajo MD Pain Mgmt 5si095t4-gqc2-8881-b1u8-k7ew7f7w0tsj 03/08/2015 03/08/2015 Oumar Gramajo MD Pain Mgmt [id number]-q422-3423-4qp8-4u8kuq847637 03/08/2015 03/08/2015 Oumar Gramajo MD Pain Mgmt 080gn8a2-l42q-36v8-2939-w81mnqx9cqs0 03/08/2015 03/08/2015 Oumar Gramajo MD Pain Mgmt [id number]-6r7u-6zlg-3cd6n1l55211 03/08/2015 03/08/2015 Oumar Gramajo MD Pain Mgmt 9rm78m47-5599-1a8y-f319-78uw0k2f5z96 03/08/2015 03/08/2015 Oumar Gramajo MD Pain Mgmt [id number]-352c7x64g118 03/08/2015 03/08/2015 Oumar Gramajo MD Pain Mgmt 8o343c0q-27de-9074-b749-u4t647x70270 03/08/2015 03/08/2015 Oumar Gramajo MD Pain Mgmt bl21z157-1619-9n53-06fn-l5j1046311ue 03/08/2015 03/08/2015 Oumar Gramajo MD Pain Mgmt l55b33j0-34gf-7d68-1fx0-96yh665lb606 03/08/2015 03/08/2015 Oumar Gramajo MD Pain Mgmt [id number]-786p-47oc-j6724e695601 03/08/2015 03/08/2015 Oumar Gramajo MD Pain Mgmt 85033zf9-fo37-816z-5u45-1693xbi67662 03/08/2015 03/08/2015 Oumar Gramajo MD Pain Mgmt z17f1ut0-2185-165l-vm29-49x9247q7z63 03/08/2015 03/08/2015 Oumar Gramajo MD Pain Mgmt 81g23r07-6d6y-3v61-0316-472979o73th5 03/08/2015 03/08/2015 Oumar Gramajo MD Pain Mgmt z73998i9-36n1-8ze2-3e7i-87tuj8o548tf 03/08/2015 03/08/2015 Oumar Gramajo MD Pain Mgmt [id number]-a253-a6r2g985d580 03/08/2015 03/08/2015 Oumar Gramajo MD Pain Mgmt 99ng3llo-ok7e-58ja-1l51-6157vj5f76x9 03/08/2015 03/08/2015 Oumar Gramajo MD Pain Mgmt 6j4kjgjb-xu35-67l7-wwn3-189439hlp853 03/08/2015 03/08/2015 Oumar Gramajo MD Pain Mgmt 6skg6f1p-m651-1853-k619-c8273460992v 03/08/2015 03/08/2015 Oumar Gramajo MD Refill [id number] 05/11/2015 05/11/2015 Oumar Gramajo MD Refill [id number]-[id number] 05/11/2015 05/11/2015 Oumar Gramajo MD Refill [id number]-2v1g-w4227e915401 05/11/2015 05/11/2015 Oumar Gramajo MD Refill 9vfn7de7-fpvz-8e86-dn28-d4l61886l5fn 05/11/2015 05/11/2015 Oumar Gramajo MD Refill [id number]-bzkw-46t8787756n8 05/11/2015 05/11/2015 Oumar Gramajo MD Refill k735tr17-m7dg-361x-n08w-y2t8339ie5sy 05/11/2015 05/11/2015 Oumar Gramajo MD Refill [id number]-sx76-8535-597i-40k66r372zt9 05/11/2015 05/11/2015 Oumar Gramajo MD Refill [id number]-53t7-3251-x1c5-d93o78n2j3u5 05/11/2015 05/11/2015 Oumar Gramajo MD Refill [id number]-d2ds-32d7-e28x-rz3c4g4542sp 05/11/2015 05/11/2015 Oumar Gramajo MD Refill [id number]vzd 05/11/2015 05/11/2015 Oumar Gramajo MD Refill [id number] 05/11/2015 05/11/2015 Oumar Gramajo MD Refill 095bvvfp-4o93-0qrn0z71-0odc-r6mk-d4vc08g95934 05/11/2015 05/11/2015 Oumar Gramajo MD Refill 7820vax8-t349-72z8-2g1g-5661clw96842 05/11/2015 05/11/2015 Oumar Gramajo MD Refill [id number]-7529-3y05-aq363u15q7r2 05/11/2015 05/11/2015 Oumar Gramajo MD Refill 622pq58n-n0xm-0h31-h178-w21av3m99d57 05/11/2015 05/11/2015 Oumar Gramajo MD Refill q6x3y9dq-2a8v-39w1-5v80-xi998duu16v4 05/11/2015 05/11/2015 Oumar Gramajo MD Refill [id number]-aima5b59kdga 05/11/2015 05/11/2015 Oumar Gramajo MD Refill [id number] 05/11/2015 05/11/2015 Oumar Gramajo MD Refill [id number] 05/11/2015 05/11/2015 Oumar Gramajo MD RX Request-- Tramadol [id number]-1ur1-nbgf-75my7a53y510 05/17/2015 05/17/2015 Oumar Gramajo MD RX Request-- Tramadol [id number]-[id number] 05/17/2015 05/17/2015 Oumar Gramajo MD RX Request-- Tramadol [id number] 05/17/2015 05/17/2015 Oumar Gramajo MD RX Request-- Tramadol [id number]-[id number]-[id number] 05/17/2015 05/17/2015 Oumar Gramajo MD RX Request-- Tramadol [id number]-bt89l62077h1 05/17/2015 05/17/2015 Oumar Gramajo MD RX Request-- Tramadol [id number] 05/17/2015 05/17/2015 Oumar Gramajo MD RX Request-- Tramadol [id number]-83rw-70jh-o83r-vxy912d5j673 05/17/2015 05/17/2015 Oumar Gramajo MD RX Request-- Tramadol [id number]-l2zg-q0z6maws3pn2 05/17/2015 05/17/2015 Oumar Gramajo MD RX Request-- Tramadol [id number]-h2th3f706h82 05/17/2015 05/17/2015 Oumar Gramajo MD RX Request-- Tramadol [id number] 05/17/2015 05/17/2015 Oumar Gramajo MD RX Request-- Tramadol [id number] 05/17/2015 05/17/2015 Oumar Gramajo MD RX Request-- Tramadol [id number]-r769-[id number] 05/17/2015 05/17/2015 Oumar Gramajo MD RX Request-- Tramadol [id number] 05/17/2015 05/17/2015 Oumar Gramajo MD RX Request-- Tramadol [id number]-t6de-[id number] 05/17/2015 05/17/2015 Oumar Gramajo MD RX Request-- Tramadol [id number]-h70l-a9ye83ap35ed 05/17/2015 05/17/2015 Oumar Gramajo MD RX Request-- Tramadol [id number] 05/17/2015 05/17/2015 Oumar Gramajo MD RX Request-- Tramadol [id number] 05/17/2015 05/17/2015 Oumar Gramajo MD RX Request-- Tramadol [id number]-rsfx-iws0327r37yo 05/17/2015 05/17/2015 Oumar Gramajo MD RX Request-- Tramadol n92sy2z7-j2oz-[id number] 05/17/2015 05/17/2015 Oumar Gramajo MD f/u p3imuc6m-z56y-1637-eh5e-4t49n024wr77 06/14/2015 06/14/2015 Oumar Gramajo MD f/u 4f2gq2m3-4506-1384-i623-nf22o395857w 06/14/2015 06/14/2015 Oumar Gramajo MD f/u tfr6b90h-53r2-554v-lsqz-16p230793w0f 06/14/2015 06/14/2015 Oumar Gramajo MD f/u [id number]ml5 06/14/2015 06/14/2015 Oumar Gramajo MD f/u 6zn10s82-40n7-7812-hhr9-blc9297m449l 06/14/2015 06/14/2015 Oumar Gramajo MD f/u 02g82g58-2t73-174i-8695-3i184p6o0f3u 06/14/2015 06/14/2015 Oumar Gramajo MD f/u zahn7kwq-7295-54s1-340e-dx6rtk281681 06/14/2015 06/14/2015 Oumar Gramajo MD f/u 05g7l463-1q59-8w22-621v-69v53ng011a0 06/14/2015 06/14/2015 Oumar Gramajo MD f/u 66b0240x-b34c-1499-75q1-40n0680605d2 06/14/2015 06/14/2015 Oumar Gramajo MD f/u 524g64ye-2i28-2c9w-zv98-9w432i0054e3 06/14/2015 06/14/2015 Oumar Gramajo MD f/u 0i1r4794-2zx4-6lz3-t5fl-5mx1no9bm1y8 06/14/2015 06/14/2015 Omuar Gramajo MD f/u 20p45l15-hh37-15id-218b-b5c4u15z1eo0 06/14/2015 06/14/2015 Oumar Gramajo MD f/u [id number]-8vp31965491g 06/14/2015 06/14/2015 Oumar Gramajo MD f/u n4m05251-em4m-8258-9141-z9t8uo3097d7 06/14/2015 06/14/2015 Oumar Gramajo MD f/u qg71z7in-8113-7t55-67xn-4b6g9e0zef7g 06/14/2015 06/14/2015 Oumar Gramajo MD f/u 6a1w1975-c211-2tx9-19v1-796o21f1p9x3 06/14/2015 06/14/2015 Oumar Gramajo MD f/u 9i66744n-0c60-4y0z-l273-65k0fz690hap 06/14/2015 06/14/2015 Oumar Gramajo MD f/u h8f76y6w-cohz-1853-6936-437q3t37f7y2 06/14/2015 06/14/2015 Oumar Gramajo MD f/u [id number]-9675-43xj-v72n-8h2q708zch95 06/14/2015 06/14/2015 Oumar Gramajo MD DEXA [id number]-g12x-3g845199z559 07/27/2015 07/27/2015 Oumar Gramajo MD DEXA 62h5p21i-iy4o-1739-i70i-e94w89v509o0 07/27/2015 07/27/2015 Oumar Gramajo MD DEXA 40kv74p7-5002-340m-z797-016js07n2796 07/27/2015 07/27/2015 Oumar Gramajo MD DEXA [id number]-k223-2p55yt2197sm 07/27/2015 07/27/2015 Oumar Gramajo MD DEXA [id number]-5o9i-1926-e6r0y7v39078 07/27/2015 07/27/2015 Oumar Gramajo MD DEXA [id number]-j60nj846294i 07/27/2015 07/27/2015 Oumar Gramajo MD DEXA jcs09mk2-m8lz-5d74-9816-8g145d91s5c8 07/27/2015 07/27/2015 Oumar Gramajo MD DEXA 07u6ic82-7n1q-0l0l-1291-1m564k0v688p 07/27/2015 07/27/2015 Oumar Gramajo MD DEXA [id number]-q282-84k192426cqv 07/27/2015 07/27/2015 Oumar Gramajo MD DEXA 17x3o984-56a9-12t3-l546-3qahk777959s 07/27/2015 07/27/2015 Oumar Gramajo MD DEXA 56285x1x-h107-971o-qh01-08076969vb5t 07/27/2015 07/27/2015 Oumar Gramajo MD DEXA uh74f36z-c0sq-116x-j74n-0k9qe45h3d8t 07/27/2015 07/27/2015 Oumar Gramajo MD DEXA 879se61f-30p7-76l8-5104-s28jue7nf560 07/27/2015 07/27/2015 Oumar Gramajo MD DEXA qmn60dxg-gao3-6pb7-8278-341i00931b64 07/27/2015 07/27/2015 Oumar Gramajo MD DEXA 4602gu8i-98xg-1qc9-n851-yg6e52u7bbgr 07/27/2015 07/27/2015 Oumar Gramajo MD DEXA [id number]-[id number] 07/27/2015 07/27/2015 Oumar Gramajo MD DEXA 3312r2u4-bmve-7mj1-977m-q2k2b3k431mc 07/27/2015 07/27/2015 Oumar Gramajo MD DEXA [id number]-2z6w-lc24-4251l3ax98se 07/27/2015 07/27/2015 Oumar Gramajo MD DEXA 20e1wsjd-go3c-013b-87il-9m73f3uvs90x 07/27/2015 07/27/2015 Oumar Gramajo MD f/u [id number]-4752-213q-a781-ej1w77301dz3 10/04/2015 10/04/2015 Oumar Gramajo MD f/u 809s66r3-0y9p-4467-ig41-gm5820ro5220 10/04/2015 10/04/2015 Oumar Gramajo MD f/u 19533704-j70o-366a-806b-7174fr2950q6 10/04/2015 10/04/2015 Oumar Gramajo MD f/u 234wm80r-pg4t-42o5-rt63-q990c48c9087 10/04/2015 10/04/2015 Oumar Gramajo MD f/u 913i3lw1-n987-45xx-9ax1-8j84laz07z03 10/04/2015 10/04/2015 Oumar Gramajo MD f/u 73mw0iie-0udc-53vr-f6t2-5m3unb171y70 10/04/2015 10/04/2015 Oumar Gramajo MD f/u 133056hm-f395-86h3-9aq0-774pi105918t 10/04/2015 10/04/2015 Oumar Gramajo MD f/u r1k985yw-5r6f-677h-g526-36491vvz552i 10/04/2015 10/04/2015 Oumar Gramajo MD f/u 4i9rq2i7-8582-9488-c8v1-f89au172149g 10/04/2015 10/04/2015 Oumar Gramajo MD f/u f473d3g6-m1d7-6y17-wran-c4c4f53d1q77 10/04/2015 10/04/2015 Oumar Gramajo MD f/u pr511dp9-2ufd-67v8-w19d-97n93x6p7g2z 10/04/2015 10/04/2015 Oumar Gramajo MD f/u [id number]413 10/04/2015 10/04/2015 Oumar Gramajo MD f/u b8a518w0-9432-2830-y5v4-i3i7fid14h3h 10/04/2015 10/04/2015 Oumar Gramajo MD f/u 796679p0-83a7-9d09-m20m-9c9m2239u2xe 10/04/2015 10/04/2015 Oumar Gramajo MD f/u 2o9ld16u-3vw7-0i38-l5a8-9111h901452o 10/04/2015 10/04/2015 Oumar Gramajo MD f/u n48dl447-dqx5-340p-00rx-j0u164e23043 10/04/2015 10/04/2015 Oumar Gramajo MD f/u i17bsw68-3s7k-83s0-3759-0064u9a2ax5g 10/04/2015 10/04/2015 Oumar Gramajo MD labs [id number] 10/04/2015 10/04/2015 Oumar Gramajo MD labs [id number]-59w0-491g-59c5680y6a94 10/04/2015 10/04/2015 Oumar Gramajo MD labs [id number]-jor9-1e81-l372-x6841pe056mt 10/04/2015 10/04/2015 Oumar Gramajo MD labs 14c8e08j-y0bw-5alq-5710-8pps1f99c587 10/04/2015 10/04/2015 Oumar Gramajo MD labs [id number]-x8s3-qri2se0174m5 10/04/2015 10/04/2015 Omuar Gramajo MD labs [id number]-e6vw-sr10822z9857 10/04/2015 10/04/2015 Oumar Gramajo MD labs [id number]-[id number]-dzlc-14t055o13nyz 10/04/2015 10/04/2015 Oumar Gramajo MD labs [id number]-[id number] 10/04/2015 10/04/2015 Oumar Gramajo MD labs [id number]-1383-nqy3x4443d2k 10/04/2015 10/04/2015 Oumar Gramajo MD labs v7z9ubn2-[id number]-1484w090a2i8 10/04/2015 10/04/2015 Oumar Gramajo MD labs 118hptr0-ki42-4s04-i586-yg40xr2277p9 10/04/2015 10/04/2015 Oumar Gramajo MD labs [id number]-1518-8547-30ca10dazff0 10/04/2015 10/04/2015 Oumar Gramajo MD labs [id number]-s2j2-gv8i4ev563f2 10/04/2015 10/04/2015 Oumar Gramajo MD labs [id number]-t590-7olee8229a9m 10/04/2015 10/04/2015 Oumar Gramajo MD labs [id number]-hxk2-0395-5ulc-b73t0q97mmgl 10/04/2015 10/04/2015 Oumar Gramajo MD labs [id number]-522m-7z33pa5bp0s4 10/04/2015 10/04/2015 Oumar Gramajo MD labs [id number]-pz53-ig88013dey4y 10/04/2015 10/04/2015 Oumar Gramajo MD labs [id number]-rhyh-p758n661096h 10/04/2015 10/04/2015 Oumar Gramajo MD Refill- Ultram 8831vhbd-n210-7ut7q405-1np5-49ay-by815f693d1y 12/15/2015 12/15/2015 Oumar Gramajo MD Refill- Ultram [id number]-l139-589uk432b245 12/15/2015 12/15/2015 Oumar Gramajo MD Refill- Ultram ct99j1c1-o083-3cm8-7388-v40l0vwp00r1 12/15/2015 12/15/2015 Oumar Gramajo MD Refill- Ultram 8a905dox-v1gp-72g7-ey38-9s21n8qi5btn 12/15/2015 12/15/2015 Oumar Gramajo MD Refill- Ultram d017hbr0-78yw-2q8j-il60-a2i087a28724 12/15/2015 12/15/2015 Oumar Gramajo MD Refill- Ultram g8cbl588-7u9h-2140-433b-0h9f204wg359 12/15/2015 12/15/2015 Oumar Gramajo MD Refill- Ultram 980drm3m-f54e-2687-3040-97hd0d28t196 12/15/2015 12/15/2015 Oumar Gramajo MD Refill- Ultram [id number]-n337-i7898m4qq7u8 12/15/2015 12/15/2015 Oumar Gramajo MD Refill- Ultram 14129go4-15l1-5t14-r9pr-3m75sia18e26 12/15/2015 12/15/2015 Oumar Gramajo MD Refill- Ultram 73z0517d-51t6-7u40-s6e0-022v496mrt47 12/15/2015 12/15/2015 Oumar Gramajo MD Refill- Ultram [id number] 12/15/2015 12/15/2015 Oumar Gramajo MD Refill- Ultram [id number] 12/15/2015 12/15/2015 Oumar Gramajo MD Refill- Ultram [id number] 12/15/2015 12/15/2015 Oumar Gramajo MD Refill- Ultram [id number] 12/15/2015 12/15/2015 Oumar Gramajo MD Refill- Ultram [id number] 12/15/2015 12/15/2015 Oumar Gramajo MD Refill- Ultram [id number] 12/15/2015 12/15/2015 Oumar Gramajo MD 3 [facility] FU [id number] 01/05/2016 01/05/2016 Oumar Gramajo MD 3 MTH FU [id number] 01/05/2016 01/05/2016 Oumar Gramajo MD 3 MTH FU [id number] 01/05/2016 01/05/2016 Oumar Gramajo MD 3 MTH FU [id number] 01/05/2016 01/05/2016 Oumar Gramajo MD 3 MTH FU [id number] 01/05/2016 01/05/2016 Oumar Gramajo MD 3 MTH FU [id number] 01/05/2016 01/05/2016 Oumar Gramajo MD 3 MTH FU [id number] 01/05/2016 01/05/2016 Oumar Gramajo MD 3 MTH FU [id number] 01/05/2016 01/05/2016 Oumar Gramajo MD 3 MTH FU [id number] 01/05/2016 01/05/2016 Oumar Gramajo MD 3 [facility] [id number] 01/05/2016 01/05/2016 Oumar Gramajo MD 3 [facility] [id number] 01/05/2016 01/05/2016 Oumar Gramajo MD 3 [facility] [id number] 01/05/2016 01/05/2016 Oumar Gramajo MD 3 [facility] [id number] 01/05/2016 01/05/2016 Oumar Gramajo MD 3 [facility] [id number] 01/05/2016 01/05/2016 Oumar Gramajo MD 3 [facility] [id number] 01/05/2016 01/05/2016 Oumar Gramajo MD tramadol [id number] 03/28/2016 03/28/2016 Oumar Gramajo MD tramadol [id number] 03/28/2016 03/28/2016 Oumar Gramajo MD tramadol [id number] 03/28/2016 03/28/2016 Oumar Gramajo MD tramadol [id number] 03/28/2016 03/28/2016 Oumar Gramajo MD tramadol [id number] 03/28/2016 03/28/2016 Oumar Gramajo MD tramadol [id number] 03/28/2016 03/28/2016 Oumar Gramajo MD tramadol [id number] 03/28/2016 03/28/2016 Oumar Gramajo MD tramadol [id number] 03/28/2016 03/28/2016 Oumar Gramajo MD tramadol [id number] 03/28/2016 03/28/2016 Oumar Gramajo MD tramadol [id number] 03/28/2016 03/28/2016 Oumar Gramajo MD tramadol [id number] 03/28/2016 03/28/2016 Oumar Gramajo MD tramadol [id number] 03/28/2016 03/28/2016 Oumar Gramajo MD tramadol [id number] 03/28/2016 03/28/2016 Oumar Gramajo MD tramadol [id number] 03/28/2016 03/28/2016 Oumar Gramajo MD [facility] [id number] 03/29/2016 03/29/2016 Oumar Gramajo MD MRI [id number] 03/29/2016 03/29/2016 Oumar Gramajo MD MRI [id number] 03/29/2016 03/29/2016 Oumar Gramajo MD MRI [id number] 03/29/2016 03/29/2016 Oumar Gramajo MD MRI [id number] 03/29/2016 03/29/2016 Oumar Gramajo MD MRI [id number] 03/29/2016 03/29/2016 Oumar Gramajo MD MRI [id number] 03/29/2016 03/29/2016 Oumar Gramajo MD MRI [id number] 03/29/2016 03/29/2016 Oumar Gramajo MD MRI [id number] 03/29/2016 03/29/2016 Oumar Gramajo MD MRI [id number] 03/29/2016 03/29/2016 Oumar Gramajo MD MRI [id number] 03/29/2016 03/29/2016 Oumar Gramajo MD MRI [id number] 03/29/2016 03/29/2016 Oumar Gramajo MD [facility] [id number] 03/29/2016 03/29/2016 Oumar Gramajo MD 3 MTH FU [id number] 04/18/2016 04/18/2016 Oumar Gramajo MD 3 MTH FU [id number] 04/18/2016 04/18/2016 Oumar Gramajo MD 3 MTH FU [id number] 04/18/2016 04/18/2016 Oumar Gramajo MD 3 MTH FU [id number] 04/18/2016 04/18/2016 Oumar Gramajo MD 3 M[facility] FU [id number] 04/18/2016 04/18/2016 Oumar Gramajo MD 3 MTH FU [id number] 04/18/2016 04/18/2016 Oumar Gramajo MD 3 M[facility] FU [id number] 04/18/2016 04/18/2016 Oumar Gramajo MD 3 M[facility] FU [id number] 04/18/2016 04/18/2016 Oumar Gramajo MD 3 MTH FU [id number] 04/18/2016 04/18/2016 Oumar Gramajo MD 3 [facility] FU [id number] 04/18/2016 04/18/2016 Oumar Gramajo MD 3 [facility] FU [id number] 04/18/2016 04/18/2016 Oumar Gramajo MD 3 [facility] FU [id number] 04/18/2016 04/18/2016 Oumar Gramajo MD [facility] rx [id number] 04/20/2016 04/20/2016 Oumar Gramajo MD [facility] rx [id number] 04/20/2016 04/20/2016 Oumar Gramajo MD [facility] rx [id number] 04/20/2016 04/20/2016 Oumar Gramajo MD [facility] rx [id number] 04/20/2016 04/20/2016 Oumar Gramajo MD [facility] rx [id number] 04/20/2016 04/20/2016 Oumar Gramajo MD [facility] rx [id number] 04/20/2016 04/20/2016 Oumar Gramajo MD [facility] rx [id number] 04/20/2016 04/20/2016 Oumar Gramajo MD [facility] rx [id number] 04/20/2016 04/20/2016 Oumar Gramajo MD [facility] rx [id number] 04/20/2016 04/20/2016 MD [facility] rx [id number] 04/20/2016 04/20/2016 MD [facility] rx [id number] 04/20/2016 04/20/2016 MD [facility] rx [id number] 04/20/2016 04/20/2016 Oumar Gramajo MD Refill- Tramadol [id number] 07/04/2016 07/04/2016 Oumar Gramajo MD Refill- Tramadol [id number] 07/04/2016 07/04/2016 Oumar Gramajo MD Refill- Tramadol [id number] 07/04/2016 07/04/2016 Oumar Gramajo MD Refill- Tramadol [id number] 07/04/2016 07/04/2016 Oumar Gramajo MD Refill- Tramadol [id number]-[id number] 07/04/2016 07/04/2016 Oumar Gramajo MD Refill- Tramadol [id number] 07/04/2016 07/04/2016 Oumar Gramajo MD Refill- Tramadol [id number] 07/04/2016 07/04/2016 Oumar Gramajo MD Refill- Tramadol [id number] 07/04/2016 07/04/2016 Oumar Gramajo MD Refill- Tramadol [id number] 07/04/2016 07/04/2016 Oumar Gramajo MD Refill- Tramadol [id number] 07/05/2016 07/05/2016 Oumar Gramajo MD Refill- Tramadol [id number] 07/05/2016 07/05/2016 Oumar Gramajo MD Refill- Tramadol [id number] 07/05/2016 07/05/2016 Oumar Gramajo MD Refill- Tramadol [id number] 07/05/2016 07/05/2016 Oumar Gramajo MD Refill- Tramadol [id number] 07/05/2016 07/05/2016 Oumar Gramajo MD Refill- Tramadol [id number] 07/05/2016 07/05/2016 Oumar Gramajo MD Refill- Tramadol [id number] 07/05/2016 07/05/2016 Oumar Gramajo MD Refill- Tramadol [id number] 07/05/2016 07/05/2016 Oumar Gramajo MD NS APPT 07/18/16 [id number] 07/18/2016 07/18/2016 Oumar Gramajo MD NS APPT 07/18/16 [id number] 07/18/2016 07/18/2016 Oumar Gramajo MD NS APPT 07/18/16 [id number] 07/18/2016 07/18/2016 Oumar Gramajo MD NS APPT 07/18/16 [id number] 07/18/2016 07/18/2016 Oumar Gramajo MD NS APPT 07/18/16 [id number] 07/18/2016 07/18/2016 Oumar Gramajo MD NS APPT 07/18/16 [id number] 07/18/2016 07/18/2016 Oumar Gramajo MD NS APPT 07/18/16 [id number] 07/18/2016 07/18/2016 Oumar Gramajo MD 3 [facility] FU [id number] 08/08/2016 08/08/2016 Oumar Gramajo MD 3 [facility] FU [id number] 08/08/2016 08/08/2016 Oumar Gramajo MD 3 [facility] FU [id number] 08/08/2016 08/08/2016 Oumar Gramajo MD 3 [facility] FU [id number] 08/08/2016 08/08/2016 Oumar Gramajo MD 3 [facility] [id number] 08/08/2016 08/08/2016 Oumar Gramajo MD 3 [facility] [id number] 08/08/2016 08/08/2016 Oumar Gramajo MD TRAMADOL REFILL [id number] 09/27/2016 09/27/2016 Oumar Gramajo MD TRAMADOL REFILL [id number] 09/27/2016 09/27/2016 Oumar Gramajo MD TRAMADOL REFILL [id number] 09/27/2016 09/27/2016 Oumar Gramajo MD TRAMADOL REFILL [id number] 09/27/2016 09/27/2016 Oumar Gramajo MD Refill- Tramadol [id number] 10/25/2016 10/25/2016 Oumar Gramajo MD Refill- Tramadol [id number] 10/25/2016 10/25/2016 Oumar Gramajo MD Refill- Tramadol [id number] 10/25/2016 10/25/2016 Oumar Gramajo MD [id number] 12/17/2016 12/17/2016 Oumar Gramajo MD FU [id number] 12/17/2016 12/17/2016 Oumar Gramajo MD OV [id number] 12/18/2016 12/18/2016 Oumar Gramajo Discharged Inpatient [id number] MAGALY BENITEZ MD 02/13/2018 02/17/2018 [facility] Discharged Inpatient (obs) [id number] MAGALY BENITEZ MD 06/30/2018 07/01/2018 [facility] Procedures Procedure Code Date Perfomer Comments Source Computed tomography of lumbar spine with contrast [id number] 02/13/2018 [facility] Ultrasound, renal [id number] 02/13/2018 EMMANUEL [facility]
--- OUTSIDE RECORDS SUMMARY | 2018-12-29 16:55 | XMS REPORT ---
Author Author Preston Gramajo Organization [employer] Address Unknown Phone Unavailable Care Team Providers Care Commercial Review Appraiser Name Role Phone Preston Gramajo CP [...] Right shoulder pain M25.511 Active Problem Other senior care (current) drug therapy Z79.899 Active Problem Age-related osteoporosis without current pathological fracture M81.0 Active Problem Primary osteoarthritis involving multiple joints M15.0 Active Medications Medication Code System Code Instructions Start Date End Date Status Dosage Tramadol HCl [facility] 91248740894 50MG Orally every 6 hrs Dec 15, 2018 Active 2 tablets Meloxicam ND 79297896176 7.5 MG Orally Once a day Dec 15, 2018 Active 1 tablet Results No Known Results Summary Purpose [employer] Submission
--- OUTSIDE RECORDS SUMMARY | 2018-12-29 16:56 | XMS REPORT ---
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.899 Active Problem Age-related osteoporosis without current pathological fracture M81.0 Active Problem Primary osteoarthritis involving multiple joints M15.0 Active Assessment Other senior living (current) drug therapy Z79.899 Active Assessment Rheumatoid arthritis of multiple sites without rheumatoid factor M06.09 Active Assessment Age-related osteoporosis without current pathological fracture M81.0 Active Assessment nursing home current use of opiate analgesic Z79.891 Active Problem Cigarette nicotine dependence, uncomplicated F17.210 Active Medications Medication Code System Code Instructions Start Date End Date Status Dosage Pravastatin Sodium ND 03787358888 20 MG Orally Once a day Active 1 tablet Tramadol NDC 0 50 mg orally every 4-6 hours prn pain [place] [address]-16 40 MG Orally Once a day Active 1 tablet Meloxicam ND 14540159646 7.5 MG Orally Once a day Active 1 tablet Benazepril HCl ND 39957652431 20 MG Orally Once a day Active 1 tablet PredniSONE ND 79836079915 5 MG Orally Once a day Sep 08, 2018 Active 1 tablet Coumadin ND 34250513471 2 MG Orally once a day Active 1 tablet Vital Signs Date/Time: Dec 22, 2018 BMI 38.61 Index Weight 211.1 lbs Height 62 in Temperature 99.9 F Cardiac Monitoring Heart Rate 80 /min Blood Pressure Diastolic 64 mm Hg Blood Pressure Systolic 145 mm Hg Results No Known Results Summary Purpose [employer] Submission
--- OUTSIDE RECORDS SUMMARY | 2018-12-29 16:56 | XMS REPORT ---
Author Author Preston Gramajo [facility] [employer] Address Unknown Phone Unavailable Care Team Providers Care Pharmacognosist Name Role Phone Preston Gramajo CP Unavailable [...] Right shoulder pain M25.511 Active Problem Other retirement (current) drug therapy Z79.899 Active Problem Age-related osteoporosis without current pathological fracture M81.0 Active Problem Primary osteoarthritis involving multiple joints M15.0 Active Medications No Known Medications Results No Known Results Summary Purpose [employer] Submission
[2018-12-29] MEDS ORDERED: METHYLPREDNISOLONE SOD SUCC 125 MG/2ML VIAL IV NR (17:00)
[2018-12-29] MEDS ORDERED: ASPIRIN 81 MG CHEW TAB PO ONE ×2 (17:00→21:45)
[2018-12-29 17:51] LABS: INFLUENZAE A&B ANTIGEN (RAPID) NEGATIVE (NEGATIVE)
[2018-12-29 17:52] LABS: STREPTOCOCCUS GRP A ANTIGEN NEGATIVE (NEGATIVE)
--- NOTE | 2018-12-29 18:06 | Diagnostic Imaging Report ---
EXAMINATION: CHEST SINGLE (PORTABLE) INDICATION: Shortness of breath ^ERMD ORDER ^[id number] ^1755 ^Y COMPARISON: 09/14/2018 FINDINGS: TUBES and LINES: None. LUNGS: Lungs are well inflated. Perihilar peribronchial hazy opacity could be due to bronchitis or possibly early pulmonary edema. No focal consolidation. PLEURA: No pleural effusion or pneumothorax. HEART AND MEDIASTINUM: The cardiomediastinal silhouette is unremarkable. BONES AND SOFT TISSUES: No acute osseous lesion. Soft tissues are unremarkable. UPPER ABDOMEN: No free air under the diaphragm. IMPRESSION: Perihilar peribronchial hazy opacity could be due to bronchitis or possibly early pulmonary edema. No focal consolidation. Signed by: Dr. Chi Turner M.D. on 12/29/2018 6:03 PM
[2018-12-29] MEDS: CEFTRIAXONE SOD 1 GM/NS 50 ML 50 ML IV SCH (18:32)
[2018-12-29 18:49] LABS: BASOPHILS % 0.2 % (0.0-1.0); HEMATOCRIT 48.2 % (34.2-44.1); HEMOGLOBIN 15.8 g/dL (12.0-16.0); LYMPHOCYTES # (AUTO) 2.3 (1.0-3.2); LYMPHOCYTES % 11.4 % (18.0-39.1); MEAN CORPUSCULAR HEMOGLOBIN 31.7 pg (28-32); MEAN CORPUSCULAR HGB CONC 32.8 g/dL (31-35); MEAN CORPUSCULAR VOLUME 96.6 fL (81-99); MONOCYTES # (AUTO) 1.2 (0.2-0.8); MONOCYTES % 6.1 % (4.4-11.3); NEUTROPHILS # (AUTO) 16.4 (2.1-6.9); NEUTROPHILS % 81.8 % (38.7-80.0); PLATELET COUNT 314 x10e3/uL (140-360); RED BLOOD COUNT 4.99 x10e6/uL (3.6-5.1); RED CELL DISTRIBUTION WIDTH 14.3 % (11.7-14.4)
[2018-12-29 18:56] LABS: INR 1.02; PROTHROMBIN TIME 14.3 seconds (11.9-14.5)
[2018-12-29 18:57] LABS: PARTIAL THROMBOPLASTIN TIME 27.8 seconds (23.8-35.5)
[2018-12-29 19:06] LABS: ALANINE AMINOTRANSFERASE 21 IU/L (0-55); ALBUMIN 3.7 g/dL (3.5-5.0); ALKALINE PHOSPHATASE 113 IU/L (40-150); ANION GAP 15.2 mmol/L (8-16); BLOOD UREA NITROGEN 12 mg/dL (7-26); BUN/CREATININE RATIO 15 (6-25); CALCIUM 9.5 mg/dL (8.4-10.2); CARBON DIOXIDE 28 mmol/L (22-29); CHLORIDE 100 mmol/L (98-107); CREATINE KINASE 115 IU/L (29-168); CREATININE, SERUM 0.82 mg/dL (0.57-1.11); EST GLOMERULAR FILTRATION RATE > 60 ML/MIN (60-); GLUCOSE 113 mg/dL (74-118); POTASSIUM 4.2 mmol/L (3.5-5.1); SODIUM 139 mmol/L (136-145)
[2018-12-29 19:47] LABS: CLARITY,URINE SL CLOUDY (CLEAR); COLOR,URINE STRAW (YELLOW); LEUKOCYTE ESTERASE ,URINE TRACE (NEGATIVE); NITRITE,URINE NEGATIVE (NEGATIVE)
[2018-12-29 19:48] LABS: BILIRUBIN,URINE NEGATIVE (NEGATIVE); KETONES,URINE TRACE (NEGATIVE); PROTEIN,URINE DIPSTICK 1+ (NEGATIVE); URINE UROBILINOGEN 0.2 mg/dL (0.2 - 1)
[2018-12-29 20:00] LABS: BACTERIA,URINE MANY /HPF; EPITHELIAL CELLS,URINE FEW /LPF
[2018-12-29] MEDS ORDERED: LEVOFLOXACIN 750MG/D5W 150ML IV SCH (21:45)
[2018-12-29] MEDS: ALBUTEROL SULF 0.083% NEB SOLN 3 ML NEB NEB SCH ×2 (21:45→23:00)
[2018-12-29] MEDS ORDERED: SODIUM CHLORIDE FLUSH 10 ML SYR INJ PRN (21:45)
[2018-12-29] MEDS: CEFEPIME HCL 2 GM/SOD CHL 0.9% 100 ML BAG IV SCH (22:26)
[2018-12-29 23:10] VITALS: BP 147/63
[2018-12-29] MEDS ORDERED: SODIUM CHLORIDE 0.9% 250ML 250 ML ONE (23:27)
[2018-12-30] VITALS (8 sets, daily range): BP systolic 134–158; BP diastolic 58–81
[2018-12-30] MEDS: IPRATROPIUM BROMIDE 0.02% 2.5 ML NEB NEB SCH ×5 (01:00→20:25)
--- NOTE | 2018-12-30 01:19 | NUR ---
PT ARRIVED ON THE UNIT VIA STRETCHER AT 2254. PT IS A&OX3. PT HAS SOB WITH AMBULATION. PT ON 2L OF O2. PT ORIENTED TO THE ROOM, BED IN LOWEST POSITION, LOCKED, BED ALARM ON, AND CALL LIGHT WITHIN REACH. ADMISSION AND HEAD TO TOE ASSESSMENT COMPLETE. WILL CONTINUE TO MONITOR.
[2018-12-30 02:58] LABS: CREATINE KINASE MB 1.5 ng/mL (0-5.0)
[2018-12-30] MEDS: ALBUTEROL SULF 0.083% NEB SOLN 3 ML NEB NEB SCH ×6 (03:45→23:00)
[2018-12-30] MEDS: CEFTRIAXONE SOD 1 GM/NS 50 ML 50 ML IV SCH (05:00)
--- NOTE | 2018-12-30 05:33 | Diagnostic Imaging Report ---
EXAM: XR CHEST 1 VIEW DATE: 12/30/2018 5:00 AM INDICATION: Pneumonia COMPARISON: 12/29/2018, no report available FINDINGS: Lines and Tubes: None Heart and Mediastinum: The heart is not enlarged. Prominent pulmonary arteries. Lungs and Pleura: Patchy opacities left mid/lower lung. Bones and Soft Tissues: No acute findings. IMPRESSION: 1. Probable left basilar pneumonia. Signed by: Dr. Johnny Jean Baptiste MD on 12/30/2018 5:30 AM
[2018-12-30] MEDS: CEFEPIME HCL 2 GM/SOD CHL 0.9% 100 ML BAG IV SCH (06:00)
--- NOTE | 2018-12-30 06:15 | NUR ---
PER DR Ramo MONSIVAISITUSSIN WITH CODEINE 5ML Q4H PRN. WILL CONTINUE TO MONITOR.
[2018-12-30] MEDS: GUAIFENESIN/CODEINE 10 ML CUP PO PRN ×3 (06:38→21:24)
--- NOTE | 2018-12-30 06:54 | NUR ---
PAGE DR GARZA TO NOTIFY HIM THAT PT DOES NOT HAVE IV ACCESS. PER DR GARZA "LEAVE IT OUT". NO NEW ORDERS. WILL CONTINUE TO MONITOR.
[2018-12-30 06:59] LABS: BASOPHILS % 0.2 % (0.0-1.0); HEMATOCRIT 47.4 % (34.2-44.1); HEMOGLOBIN 15.2 g/dL (12.0-16.0); LYMPHOCYTES # (AUTO) 1.5 (1.0-3.2); LYMPHOCYTES % 6.9 % (18.0-39.1); MEAN CORPUSCULAR HGB CONC 32.1 g/dL (31-35); MEAN CORPUSCULAR VOLUME 96.7 fL (81-99); MONOCYTES # (AUTO) 0.3 (0.2-0.8); MONOCYTES % 1.6 % (4.4-11.3); NEUTROPHILS # (AUTO) 19.9 (2.1-6.9); NEUTROPHILS % 90.6 % (38.7-80.0); PLATELET COUNT 289 x10e3/uL (140-360); RED CELL DISTRIBUTION WIDTH 14.2 % (11.7-14.4)
[2018-12-30 07:23] LABS: CREATINE KINASE 106 IU/L (29-168)
[2018-12-30 08:03] LABS: ALANINE AMINOTRANSFERASE 20 IU/L (0-55); ALBUMIN 3.3 g/dL (3.5-5.0); ALBUMIN/GLOBULIN RATIO 0.9 (0.8-2.0); ALKALINE PHOSPHATASE 107 IU/L (40-150); ANION GAP 19.4 mmol/L (8-16); BLOOD UREA NITROGEN 18 mg/dL (7-26); BUN/CREATININE RATIO 21 (6-25); CALCIUM 9.4 mg/dL (8.4-10.2); CARBON DIOXIDE 22 mmol/L (22-29); CHLORIDE 101 mmol/L (98-107); CREATININE, SERUM 0.85 mg/dL (0.57-1.11); EST GLOMERULAR FILTRATION RATE > 60 ML/MIN (60-); GLUCOSE 140 mg/dL (74-118); POTASSIUM 4.4 mmol/L (3.5-5.1); SODIUM 138 mmol/L (136-145)
--- NOTE | 2018-12-30 08:54 | Consultation ---
DATE OF CONSULTATION: PULMONARY CRITICAL CARE CONSULTATION CHIEF COMPLAINT: Cough and chest congestion. HISTORY OF PRESENT ILLNESS: The patient is a 73-year-old woman with a history of COPD and prior pulmonary emboli. She is on warfarin chronically because of 2 prior episodes of pulmonary emboli. At home, she uses a nebulizer and bronchodilators. She has noticed worsening dyspnea and congestion over the past 2 days. She reports a cough productive of greenish phlegm. She also notes coughing and choking when she eats. She has pain when she swallows and some dysphasia. She does not report any nausea or vomiting. She has no leg edema. PAST SURGICAL HISTORY 1. Status post lower back surgery on 2 separate occasions. 2. Status post knee surgery. 3. Cataract surgery. PAST MEDICAL HISTORY 1. History of pulmonary emboli twice. 2. History of COPD. 3. Arthritis. 4. Coronary artery disease. ALLERGIES: NONE. FAMILY HISTORY: Noncontributory. SOCIAL HISTORY: The patient is a reformed smoker. She recently quit smoking. She does not drink alcohol. REVIEW OF SYSTEMS: She notes some fever over the past 2 days. She denies any headache. She has no sore throat. She does note some coughing and choking when she eats. She has some odynophagia. She also has some dyspnea. She has no abdominal pain. She has no nausea or vomiting. She has no leg edema. PHYSICAL EXAMINATION VITALS: The patient is afebrile. The blood pressure is 138/63 and saturation is 98% on 3 L. Pulse is 82 beats per minute. HEENT: Shows no facial swelling or erythema. The nasal mucosa is normal. The oropharynx is normal. LYMPHATIC: Shows no submandibular, cervical or supraclavicular adenopathy. CARDIAC: Reveals a regular rate and rhythm with a normal S1 and S2. There are no murmurs or rubs. LUNGS: Auscultation of the lungs reveals wheezing in both lung cordero with a prolonged expiratory phase. The patient also notes some cough and rhonchi. There are some rhonchi in both lung cordero as well. ABDOMEN: Soft and nontender. There is no rebound or guarding. EXTREMITIES: Shows no leg edema or calf tenderness. There is no cyanosis or clubbing. SKIN: Shows on rashes. NEUROLOGIC: Shows no focal abnormalities. LABORATORY DATA: The BUN to creatinine ratio is 12 and 0.2. The other electrolytes are within normal limits. The INR is 1.02 with a PT of 14.3. The BUN to creatinine ratio is normal. The other electrolytes are within normal limits. Blood gas is not available. White blood cell count is 22 and hemoglobin is 15. The platelet count is 289,000. RADIOGRAPHIC DATA: The chest x-ray shows left basilar infiltrate. IMPRESSION 1. Aspiration pneumonia with sepsis, present on admission. 2. Chronic obstructive pulmonary disease with acute exacerbation. 3. History of pulmonary emboli. 4. Odynophagia. 5. Hypertension. PLAN 1. Continue current antibiotics. 2. Obtain sputum for Gram stain and C and S. 3. Urine antigen for legionella. 4. Patient needs a swallowing evaluation for possible aspiration. 5. Begin Protonix for odynophagia. If his symptoms do not resolve, then the patient will need a GI consult. 6. Solu-Medrol at 1 mg per kg IV daily. 7. CT scan of the chest with PE protocol. 8. Restart warfarin. Job#: [id number] SANDHYA
[2018-12-30] MEDS: BENAZEPRIL HCL 10 MG TAB PO SCH (09:17)
[2018-12-30] MEDS: MELOXICAM 7.5 MG TAB PO SCH (09:18)
[2018-12-30] MEDS: AMLODIPINE BESYLATE 5 MG TAB PO SCH (09:18)
--- NOTE | 2018-12-30 09:49 | NUR ---
CALL PLACED OUT TO DR. BENITEZ TO CLARIFY ORDERS FOR CT- ORDER CLARIFIED, DR. BENITEZ ORDER PE PROTOCOL AND CT WITH CONTRAST. RADIOLOGY INFORMED OF CHANGES.
[2018-12-30] MEDS: METHYLPREDNISOLONE SOD SUCC 40 MG/ML VIAL 1ML IV SCH ×2 (11:12→21:19)
[2018-12-30] MEDS: PANTOPRAZOLE 40 MG 10ML VIAL IV SCH (11:12)
[2018-12-30] MEDS: CEFEPIME 2 GM/NS 0.9% 100 ML 100 ML IV SCH ×2 (14:26→22:00)
[2018-12-30] MEDS ORDERED: SODIUM CHLORIDE 0.9% 50ML 50 ML ONE (15:09)
[2018-12-30] MEDS ORDERED: IOPAMIDOL 300MG/ML 100 ML INFUS..BTL IV ONE (15:09)
[2018-12-30] MEDS ORDERED: IOPAMIDOL 370 MG/ML 200 ML INFUS..BTL INJ ONE (15:10)
--- NOTE | 2018-12-30 15:10 | Diagnostic Imaging Report ---
EXAM: CT Chest WITH contrast 12/30/2018 9:52 AM INDICATION: Shortness of breath. Pneumonia. COPD exacerbation. History of pulmonary emphysema and right lower lung infiltrate. COMPARISON: Chest radiograph December 30, 2018 TECHNIQUE: Chest was scanned utilizing a multidetector helical scanner from the lung apex through the level of the adrenal glands without administration of IV contrast. Coronal and sagittal reformations were obtained. Routine protocol was performed. IV CONTRAST: 100 mL of Isovue-370 RADIATION DOSE: Total DLP: 530.17 mGy*cm Estimated effective dose: (DLP x 0.014 x size factor) mSv All CT scans are performed using radiation dose reduction techniques. Technical factors are evaluated and adjusted to ensure appropriate moderation of exposure. Automated dose management technology is applied to adjust the radiation dose to minimize exposure while achieving a diagnostic-quality image. COMPLICATIONS: None FINDINGS: No pulmonary embolism is seen. LINES/ TUBES: None. LUNGS AND AIRWAYS: Chronic appearing changes in the lungs with emphysema most pronounced in the upper lobes. Likely scarring/fibrosis most pronounced in the right lung apex. Airways are normal. PLEURA: The pleural spaces are clear. HEART AND MEDIASTINUM: The thyroid gland is normal. No mediastinal, hilar or axillary lymphadenopathy. The heart is normal in size.. There is no pericardial effusion. UPPER ABDOMEN: 4.4 cm heterogeneous lesion in the posterior right hepatic lobe could be due to a hemangioma. MRI of the liver is recommended for further characterization. BONES: Scattered degenerative change. SOFT TISSUES: Possible partially calcified sebaceous cyst along the posterior lower back superficially. IMPRESSION: No evidence of pulmonary embolism. Centrilobular emphysematous changes of the lungs. No focal infiltrate. 4.4 cm heterogeneous lesion in the posterior right hepatic lobe could be due to a hemangioma. MRI of the liver is recommended for further characterization. Signed by: Dr. Chi Turner M.D. on 12/30/2018 3:07 PM
--- NOTE | 2018-12-30 15:15 | NUR ---
Visit made by the Spiritual Care Department Pastoral Visitor, Bettie Dee. PV provided pastoral presence, hospitality, and supportive listening. Pastoral Visitor informed pt/family of the scope of Pediatric Medical Assistant Services and availability. LOLA PINON [employer] T[employer] Spiritual Care Department O: [phone] Pager: [phone] ([phone] calling from)
--- NOTE | 2018-12-30 15:40 | Diagnostic Imaging Report ---
PROCEDURE:X-RAY MODIFIED BARIUM SWALLOW COMPARISON:None. INDICATIONS:Dysphasia, coughing, shortness of breath and choking sensation DISCUSSION:Fluoroscopic examination was performed in conjunction with speech pathology, during swallowing of a variety of thin and thick liquid consistencies. Fluoroscopy time: 0.8 minutes Total dose: 1.33 Gy.cm2 CONCLUSION:No penetration or aspiration. Please see the report from speech pathology for complete details. Danny Mcconnell D.O. Dictated by: Danny Mcconnell D.O. on 12/30/2018 at 15:51 Electronically approved by: Danny Mcconnell D.O. on 12/30/2018 at 15:51
[2018-12-30] MEDS: WARFARIN SOD 5 MG TAB PO SCH (16:49)
[2018-12-30] MEDS ORDERED: WARFARIN SOD 2.5 MG TAB PO SCH (17:00)
--- NOTE | 2018-12-30 19:07 | NUR ---
PATIENT IS IN STABLE CONDITION WITH NO S/S OF RESPIRATORY DISTRESS. NO PAIN VOICED. 02 APPLIED. CALL LIGHT IS WITHIN REACH, PATIENT INSTRUCTED TO CALL FOR ASSISTANCE NEEDED. REPORT GIVEN TO ONCOMING NURSE.
--- NOTE | 2018-12-30 19:16 | NUR ---
PT IS RESTING IN BED. NO RESPIRATORY DISTRESS NOTED. BED IN THE LOWEST POSITION, LOCKED, AND CALL LIGHT WITHIN REACH. WILL CONTINUE TO MONITOR.
[2018-12-30] MEDS: LEVOFLOXACIN 750MG/D5W 150ML 150 ML IV SCH (21:19)
[2018-12-31] VITALS (7 sets, daily range): BP systolic 103–154; BP diastolic 51–65
[2018-12-31] MEDS: TRAMADOL HCL 50 MG TAB PO PRN ×3 (00:29→20:30)
[2018-12-31] MEDS: IPRATROPIUM BROMIDE 0.02% 2.5 ML NEB NEB SCH ×4 (00:43→19:35)
--- NOTE | 2018-12-31 01:50 | Diagnostic Imaging Report ---
EXAM: XR CHEST 1 VIEW DATE: 12/31/2018 1:22 AM INDICATION: PICC line placement COMPARISON: 12/30/2018, no report available FINDINGS: Lines and Tubes: Right PICC. Underpenetration secondary to portable technique limits evaluation for tip. Likely SVC. Heart and Mediastinum: No acute cardiomediastinal findings. Lungs and Pleura: Mild edema. Bones and Soft Tissues: No acute findings. IMPRESSION: 1. Right PICC. See above. 2. Mild edema. Signed by: Dr. Johnny Jean Baptiste MD on 12/31/2018 1:46 AM
[2018-12-31] MEDS: ALBUTEROL SULF 0.083% NEB SOLN 3 ML NEB NEB SCH ×6 (03:00→23:00)
[2018-12-31] MEDS: CEFEPIME 2 GM/NS 0.9% 100 ML 100 ML IV SCH ×3 (05:50→22:00)
[2018-12-31 06:42] LABS: INR 1.02; PROTHROMBIN TIME 14.3 seconds (11.9-14.5)
[2018-12-31 06:49] LABS: ALANINE AMINOTRANSFERASE 19 IU/L (0-55); ALBUMIN/GLOBULIN RATIO 0.9 (0.8-2.0); ALKALINE PHOSPHATASE 92 IU/L (40-150); ANION GAP 12.9 mmol/L (8-16); BLOOD UREA NITROGEN 20 mg/dL (7-26); BUN/CREATININE RATIO 25 (6-25); CARBON DIOXIDE 28 mmol/L (22-29); CHLORIDE 104 mmol/L (98-107); CREATININE, SERUM 0.81 mg/dL (0.57-1.11); EST GLOMERULAR FILTRATION RATE > 60 ML/MIN (60-); GLUCOSE 138 mg/dL (74-118); POTASSIUM 4.9 mmol/L (3.5-5.1); SODIUM 140 mmol/L (136-145)
[2018-12-31] MEDS: GUAIFENESIN/CODEINE 10 ML CUP PO PRN ×3 (07:55→22:56)
[2018-12-31] MEDS: MELOXICAM 7.5 MG TAB PO SCH (08:44)
[2018-12-31] MEDS: METHYLPREDNISOLONE SOD SUCC 40 MG/ML VIAL 1ML IV SCH ×2 (08:44→20:35)
[2018-12-31] MEDS: PANTOPRAZOLE 40 MG 10ML VIAL IV SCH (08:44)
[2018-12-31] MEDS: AMLODIPINE BESYLATE 5 MG TAB PO SCH (08:44)
[2018-12-31] MEDS: BENAZEPRIL HCL 10 MG TAB PO SCH (08:44)
--- NOTE | 2018-12-31 08:45 | NUR ---
Pt received resting in bed. Pt oriented to staff and surroundings. All meds including cough syrup given as ordered. Call juarez within reach. Emotional support given. Will monitor
--- NOTE | 2018-12-31 08:55 | Progress Note ---
DATE: PULMONARY PROGRESS NOTE SUBJECTIVE: The patient required a PICC line last night. She still has some wheezing and cough. She still has some congestion. She has less fever. PHYSICAL EXAMINATION: VITAL SIGNS: The patient is afebrile. The blood pressure is 142/65 and the saturation is 94% on 3 liters. HEENT: Shows no facial swelling or erythema. The nasal mucosa is normal. Oropharynx is normal. LYMPHATIC: Shows no submandibular, cervical, or supraclavicular adenopathy. CARDIAC: Reveals a regular rate and rhythm with a normal S1 and S2. CHEST: Auscultation of lungs reveals wheezes in both lung cordero. There are rhonchi bilaterally. ABDOMEN: Soft and nontender. There is no rebound or guarding. EXTREMITIES: Shows no leg edema or calf tenderness. There is no cyanosis or clubbing. SKIN: Shows no rashes. NEUROLOGICAL: Shows no focal abnormalities. IMPRESSION: 1. Chronic obstructive pulmonary disease with acute exacerbation. 2. Aspiration pneumonia with sepsis present on admission. 3. Odynophagia. 4. History of pulmonary emboli. 5. Hypertension. PLAN: 1. Continue Solu-Medrol and bronchodilators. 2. Continue antibiotics and adjust according to cultures. 3. Continue Protonix. Patient may require a GI consult for odynophagia. Job#: [id number]
[2018-12-31] MEDS: WARFARIN SOD 5 MG TAB PO SCH (17:05)
--- NOTE | 2018-12-31 17:27 | History and Physical ---
HISTORY: Ms. 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 HISTORY OF PRESENT ILLNESS: Patient reports this feels like her previous problems and is not surprised. PAST MEDICAL HISTORY: Significant for repeated hospitalizations at [facility] for pneumonia and exacerbation of COPD. She did have DVT and pulmonary emboli in January 2014, for which she continues to use warfarin. MEDICATIONS: Includes tramadol, benazepril, pravastatin and warfarin 5 mg daily. PERSONAL AND SOCIAL HISTORY: Patient continues to smoke as mentioned above. PHYSICAL EXAMINATION GENERAL: At this time shows a pleasant obese woman who is alert, responsive, conversant, 5 feet 5 inches tall, weighing 209 pounds. VITAL SIGNS: Blood pressure 138/63. Pulse is 90 and regular. HEENT: Totally unremarkable. NECK: Is thick. THORAX: Heart sounds S1, S2 are equal and distant. No audible murmur. RESPIRATORY: Distant breath sounds and faint rhonchi and wheezing. Chest x-ray suggests infiltrate, suggesting pneumonia. White cell count 21.9 thousand, hemoglobin 15.2. ASSESSMENTS 1. Pneumonia. 2. Chronic obstructive pulmonary disease. 3. History of pulmonary embolus. PLAN: Get broad-spectrum antibiotics and bronchodilators and continue warfarin. Appreciate the help of Dr. Demarcus Rodriguez. Job#: [id number] TA cc:DEMARCUS RODRIGUEZ M.D., cc:DIMPLE MATAMOROS MD,
--- NOTE | 2018-12-31 18:55 | NUR ---
RECEIVED PT SITTING IN RECLINER. ASSISTED TO BATHROOM. URINE YELLOW, NORMAL ODOR. O2 @3.5L VIA NC. NO RESPIRATORY DISTRESS NOTED. BED LOCKED AND LOWEST POSITION. CALL LIGHT WITHIN REACH. WILL CONTINUE TO MONITOR.
[2018-12-31] MEDS: LEVOFLOXACIN 750MG/D5W 150ML 150 ML IV SCH (20:35)
[2018-12-31] MEDS: ZOLPIDEM TARTRATE 5 MG TAB PO PRN (22:56)
[2019-01-01] VITALS (7 sets, daily range): BP systolic 130–159; BP diastolic 59–71
[2019-01-01] MEDS: IPRATROPIUM BROMIDE 0.02% 2.5 ML NEB NEB SCH ×4 (01:00→18:30)
[2019-01-01] MEDS: ALBUTEROL SULF 0.083% NEB SOLN 3 ML NEB NEB SCH ×6 (03:00→23:00)
[2019-01-01] MEDS: GUAIFENESIN/CODEINE 10 ML CUP PO PRN ×4 (05:15→21:45)
[2019-01-01] MEDS: CEFEPIME 2 GM/NS 0.9% 100 ML 100 ML IV SCH ×3 (05:26→21:56)
[2019-01-01] MEDS: TRAMADOL HCL 50 MG TAB PO PRN ×3 (05:27→21:45)
[2019-01-01 05:37] LABS: BASOPHILS % 0.1 % (0.0-1.0); HEMATOCRIT 42.7 % (34.2-44.1); HEMOGLOBIN 13.8 g/dL (12.0-16.0); LYMPHOCYTES # (AUTO) 1.8 (1.0-3.2); LYMPHOCYTES % 11.9 % (18.0-39.1); MEAN CORPUSCULAR HEMOGLOBIN 30.9 pg (28-32); MEAN CORPUSCULAR HGB CONC 32.3 g/dL (31-35); MEAN CORPUSCULAR VOLUME 95.5 fL (81-99); MONOCYTES # (AUTO) 0.7 (0.2-0.8); MONOCYTES % 4.4 % (4.4-11.3); NEUTROPHILS # (AUTO) 12.9 (2.1-6.9); PLATELET COUNT 298 x10e3/uL (140-360); RED BLOOD COUNT 4.47 x10e6/uL (3.6-5.1); RED CELL DISTRIBUTION WIDTH 14.2 % (11.7-14.4)
[2019-01-01 05:48] LABS: INR 1.3; PROTHROMBIN TIME 17.3 seconds (11.9-14.5)
[2019-01-01 05:57] LABS: ALANINE AMINOTRANSFERASE 19 IU/L (0-55); ALBUMIN/GLOBULIN RATIO 0.9 (0.8-2.0); ALKALINE PHOSPHATASE 83 IU/L (40-150); ANION GAP 13.6 mmol/L (8-16); BLOOD UREA NITROGEN 26 mg/dL (7-26); BUN/CREATININE RATIO 30 (6-25); CARBON DIOXIDE 28 mmol/L (22-29); CHLORIDE 102 mmol/L (98-107); CREATININE, SERUM 0.87 mg/dL (0.57-1.11); EST GLOMERULAR FILTRATION RATE > 60 ML/MIN (60-); GLUCOSE 136 mg/dL (74-118); POTASSIUM 4.6 mmol/L (3.5-5.1); SODIUM 139 mmol/L (136-145)
--- NOTE | 2019-01-01 08:38 | NUR ---
Pt received resting in bed. All meds given as ordered. Call juarez within reach. Emotional support given. Will monitor
[2019-01-01] MEDS: BENAZEPRIL HCL 10 MG TAB PO SCH (08:39)
[2019-01-01] MEDS: PANTOPRAZOLE 40 MG 10ML VIAL IV SCH (08:39)
[2019-01-01] MEDS: METHYLPREDNISOLONE SOD SUCC 40 MG/ML VIAL 1ML IV SCH ×2 (08:39→21:56)
[2019-01-01] MEDS: MELOXICAM 7.5 MG TAB PO SCH (08:39)
[2019-01-01] MEDS: AMLODIPINE BESYLATE 5 MG TAB PO SCH (08:39)
--- NOTE | 2019-01-01 08:56 | Progress Note ---
DATE: January 01, 2019 Patient says she feels better. She has less wheezing and less cough. Her dyspnea has improved. PHYSICAL EXAMINATION VITAL SIGNS: Stable. HEENT: Shows no facial swelling or erythema. LYMPHATIC: Shows no submandibular, cervical or supraclavicular adenopathy. CARDIAC: Reveals a regular rate and rhythm with a normal S1 and S2. There are no murmurs or rubs. LUNGS: Auscultation of the lungs reveals a few wheezes bilaterally. There are a few rhonchi bilaterally. ABDOMEN: Soft and nontender. There is no rebound or guarding. EXTREMITIES: Shows no leg edema or calf tenderness. There is no cyanosis or clubbing. SKIN: Shows no rashes. IMPRESSION 1. Chronic obstructive pulmonary disease with acute exacerbation. 2. History of pulmonary emboli. 3. Odynophagia. 4. Hypertension. PLAN 1. Continue Solu-Medrol and antibiotics. 2. Continue bronchodilators. 3. Continue Protonix and GE reflux precautions. 4. Tentative discharge tomorrow on p.o. antibiotics and steroid taper. Job#: [id number] CA
[2019-01-01] MEDS: WARFARIN SOD 5 MG TAB PO SCH (17:05)
--- NOTE | 2019-01-01 17:44 | NUR ---
Pt resting comfortably in bed with family at bedside. Emotional support given. Call juarez within reach. Will endorse to next shift
--- NOTE | 2019-01-01 19:00 | NUR ---
ROUNDS COMPLETED WITH MORNING NURSE. PT ALERT AND ORIENT TO PERSON, PLACE, TIME, AND SITUATION. O2 @3.5L VIA NC. NO RESPIRATORY DISTRESS NOTED. BED LOCKED AND LOWEST POSITION. CALL LIGHT WITHIN REACH. WILL CONTINUE TO MONITOR.
[2019-01-01] MEDS: LEVOFLOXACIN 750MG/D5W 150ML 150 ML IV SCH (20:55)
[2019-01-01] MEDS: ZOLPIDEM TARTRATE 5 MG TAB PO PRN (21:45)
[2019-01-02] VITALS: BP 127/58
[2019-01-02] MEDS: IPRATROPIUM BROMIDE 0.02% 2.5 ML NEB NEB SCH ×3 (01:00→10:45)
[2019-01-02] MEDS: ALBUTEROL SULF 0.083% NEB SOLN 3 ML NEB NEB SCH ×4 (03:00→14:29)
[2019-01-02 04:00] VITALS: BP 185/80
[2019-01-02] MEDS: CEFEPIME 2 GM/NS 0.9% 100 ML 100 ML IV SCH ×2 (06:00→14:30)
--- NOTE | 2019-01-02 06:03 | NUR ---
Blood drawn from [facility] for labs, Pt tolerated well.
[2019-01-02 06:16] LABS: BASOPHILS % 0.1 % (0.0-1.0); HEMATOCRIT 40.4 % (34.2-44.1); HEMOGLOBIN 13.3 g/dL (12.0-16.0); LYMPHOCYTES # (AUTO) 1.4 (1.0-3.2); LYMPHOCYTES % 13.1 % (18.0-39.1); MEAN CORPUSCULAR HEMOGLOBIN 31.1 pg (28-32); MEAN CORPUSCULAR HGB CONC 32.9 g/dL (31-35); MEAN CORPUSCULAR VOLUME 94.6 fL (81-99); MONOCYTES # (AUTO) 0.4 (0.2-0.8); MONOCYTES % 4.1 % (4.4-11.3); NEUTROPHILS # (AUTO) 8.8 (2.1-6.9); NEUTROPHILS % 82.2 % (38.7-80.0); PLATELET COUNT 273 x10e3/uL (140-360); RED BLOOD COUNT 4.27 x10e6/uL (3.6-5.1); RED CELL DISTRIBUTION WIDTH 14.2 % (11.7-14.4)
[2019-01-02 06:27] LABS: INR 1.46; PROTHROMBIN TIME 18.9 seconds (11.9-14.5)
[2019-01-02 06:34] LABS: ANION GAP 10.9 mmol/L (8-16); BLOOD UREA NITROGEN 29 mg/dL (7-26); BUN/CREATININE RATIO 35 (6-25); CALCIUM 8.7 mg/dL (8.4-10.2); CARBON DIOXIDE 27 mmol/L (22-29); CHLORIDE 102 mmol/L (98-107); CREATININE, SERUM 0.83 mg/dL (0.57-1.11); EST GLOMERULAR FILTRATION RATE > 60 ML/MIN (60-); GLUCOSE 144 mg/dL (74-118); POTASSIUM 4.9 mmol/L (3.5-5.1); SODIUM 135 mmol/L (136-145)
[2019-01-02 07:40] VITALS: BP 175/68
--- NOTE | 2019-01-02 07:40 | NUR ---
PATIENT IN BED RESTING WITH EYES CLOSED, NO RESPIRATORY DISTRESS OBSERVED. O2 IN PLACE VIA N/C, TELEMETRY BOX WITH CONTINUOUS PULSE OX. BED IN LOWER POSITION, CALL LIGHT AT REACH.
[2019-01-02 07:46] VITALS: BP 175/68
[2019-01-02] MEDS: MELOXICAM 7.5 MG TAB PO SCH (09:32)
[2019-01-02] MEDS: AMLODIPINE BESYLATE 5 MG TAB PO SCH (09:32)
[2019-01-02] MEDS: BENAZEPRIL HCL 10 MG TAB PO SCH (09:32)
[2019-01-02] MEDS: PANTOPRAZOLE 40 MG 10ML VIAL IV SCH (09:32)
[2019-01-02] MEDS: METHYLPREDNISOLONE SOD SUCC 40 MG/ML VIAL 1ML IV SCH (09:32)
[2019-01-02] MEDS: GUAIFENESIN/CODEINE 10 ML CUP PO PRN ×2 (10:45→14:10)
[2019-01-02] MEDS: TRAMADOL HCL 50 MG TAB PO PRN ×2 (10:45→17:10)
--- NOTE | 2019-01-02 11:26 | NUR ---
PATIENT NOTED WITH COUGH, PRN COUGH MEDICATION ADMINISTERED. NO COUGHING OBSERVED AT THIS TIME. CALL LIGHT AT REACH.
[2019-01-02 11:48] VITALS: BP 131/85
--- NOTE | 2019-01-02 15:25 | NUR ---
PATIENT ASSISTED TO THE RESTROOM AND BACK TO BED. BED IN LOWER POSITION, CALL LIGHT AT REACH.
[2019-01-02 16:04] VITALS: BP 138/65
--- NOTE | 2019-01-02 16:04 | NUR ---
DC PLANNING: DISCUSSED PT IN ROUNDS. PT FOR POSSIBLE DC TODAY. IMM LETTER EXPLAINED. PT VERBALIZED UNDERSTANDING. LETTER WAS SIGNED AND COPY TO CHART AND COPY TO PT.
[2019-01-02] MEDS: WARFARIN SOD 5 MG TAB PO SCH (17:11)
--- NOTE | 2019-01-02 18:30 | NUR ---
PICC LINE TO RIGHT UPPER REMOVED WITH TIP INTACT. PRESSURE APPLIED FOR 5 MINUTES. DRESSING DRY AND INTACT TO SITE.
--- NOTE | 2019-01-02 18:30 | Discharge Summary ---
HISTORY OF PRESENT ILLNESS: Ms. 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 Patient reports that although she has had multiple hospitalizations for pneumonia and exacerbation of COPD that she was feeling worse and dyspneic on her home oxygen. HOSPITAL COURSE: Initial x-ray suggested pneumonia. She was started on broad-spectrum antibiotics. She was continued on her previous home warfarin for previous DVT and pulmonary emboli. The patient made very gradual progress. Her white cell count gradually improved. She required PICC line that will be placed in the right arm. Her initial INR was 1.02 and by the day her INR is 1.46. Prothrombin time 18.9 seconds. She is discharged home to take Z-Russell as directed, prednisone taper and Robitussin. She will follow up with Dr. Rodriguez and Dr. Matamoros on regular basis. DISCHARGE DIAGNOSES 1. Pneumonia. 2. Severe chronic obstructive pulmonary disease. 3. History of deep venous thrombosis and pulmonary embolus. 4. Tobacco abuse. SKYLAR GARZA MD Job#: [id number] AKU cc:DIMPLE MATAMOROS MD cc:MAGALY RODRIGUEZ MD
--- NOTE | 2019-01-02 19:31 | NUR ---
Patient discharged with all belongings. Refused V/S at this time and patient's folder.
== END 2019-01-02 19:25 | disposition home or self-care (01) | DRG 871 ==
LOC: ER 16:50 → ERHOLD 21:58 → MED/SURG3 22:45
PROVIDERS: ADMIT Internal Medicine Cardiovascular Disease; ATTEND Internal Medicine Cardiovascular Disease
PROC: 02HV33Z Insertion of Infusion Device into Superior Vena Cava, Percutaneous Approach (ICD-10-PCS; principal; 2018-12-31)
DX: A41.9 Sepsis, unspecified organism (principal); J69.0 Pneumonitis due to inhalation of food and vomit; J18.9 Pneumonia, unspecified organism; J44.1 Chronic obstructive pulmonary disease with (acute) exacerbation; J44.0 Chronic obstructive pulmonary disease with (acute) lower respiratory infection; Z86.711 Personal history of pulmonary embolism; Z79.01 Long term (current) use of anticoagulants; I25.10 Atherosclerotic heart disease of native coronary artery without angina pectoris; R13.10 Dysphagia, unspecified; I10 Essential (primary) hypertension; Z86.718 Personal history of other venous thrombosis and embolism; F17.210 Nicotine dependence, cigarettes, uncomplicated; Z87.01 Personal history of pneumonia (recurrent)
CPT/HCPCS: 36415; 36569; 71045; 71260; 74230; 80048; 80053; 81001; 82550; 82553; 83518; 83605; 83880; 84484; 85025; 85610; 85730; 87040; 87070; 87205; 87400; 87449; 93005; 94640; 99284; J0696; J2920; J2930; J7050; Q9967

== ENCOUNTER 2019-03-04 13:50 | Emergency (ER) | payer MEDICARE ==
[~2019-03-04] VITALS: Ht 165.1 cm; Wt 95.7 kg
--- OUTSIDE RECORDS SUMMARY | 2019-03-04 13:55 | XMS REPORT | Continuity of Care Document ---
Author Author Atiya chely [facility] Interface Address Unknown Phone Unavailable Problems Problem Status Onset Date Classification Date Reported Comments Source Right shoulder pain Active Problem 02/21/2019 Oumar Gramajo Rheumatoid arthritis of multiple sites without rheumatoid factor Active Problem 02/21/2019 Oumar Gramajo Primary osteoarthritis involving multiple joints Active Problem 02/21/2019 Oumar Gramajo Other long-term drug therapy Active Problem 02/21/2019 Oumar Gramajo Cigarette nicotine dependence, uncomplicated Active Problem 02/21/2019 Oumar Gramajo Pain in right shoulder Active Problem 02/21/2019 Oumar Gramajo Shoulder pain, left Active Problem 02/21/2019 Oumar Gramajo Age-related osteoporosis without current pathological fracture Active Problem 02/21/2019 Oumar Gramajo Vitamin D deficiency, unspecified Active Problem 02/21/2019 Oumar Gramajo Hyperkalemia Active Diagnosis 09/06/2017 Oumar Gramajo Encounter for long-term drug use Active Diagnosis 09/06/2017 Oumar Gramajo Trochanteric bursitis of left hip Active Problem 02/21/2019 Oumar Gramajo Trochanteric bursitis, right hip Active Problem 02/21/2019 Oumar Gramajo [employer] current use of opiate analgesic Active Diagnosis 12/24/2018 Oumar Gramajo Unspecified vitamin D deficiency Active Problem 10/26/2016 Oumar Gramajo Long-term use of other medications - High Risk Active Problem 10/26/2016 Oumar Gramajo Osteopenia Active Problem 10/26/2016 Oumar Gramajo Pain in joint, lower leg Active Diagnosis 06/04/2014 Oumar Gramajo Rheumatoid arthritis Active Problem 10/26/2016 Oumar Gramajo Osteoarthrosis, lower leg Active Problem 10/26/2016 Oumar Gramajo Localized osteoarthrosis not specified whether primary or secondary, other specified sites Active Diagnosis 02/17/2015 Oumar Gramajo Rheumatoid arthritis without rheumatoid factor, multiple sites Active Diagnosis 10/05/2015 Oumar Gramajo Osteoporosis Active Diagnosis 05/03/2016 Oumra Gramajo Need for prophylactic vaccination and inoculation against influenza Active Diagnosis 10/12/2015 Oumar Gramajo Encounter for long-term use of other high-risk medications Active Diagnosis 01/10/2016 Oumar Gramajo COPD exacerbation Active Problem 07/01/2018 [facility] COPD with exacerbation Active Problem 07/01/2018 [facility] Pneumonia Active Problem 07/01/2018 [facility] Respiratory failure with hypoxia and hypercapnia Active Problem 07/01/2018 [facility] Medications Medication Details Route Status Patient Instructions [...] Mg Oral Every 12 Hours Active 02/13/2018 [facility] Prednisone 10 Mg Tab, 10 Mg Oral Active 02/13/2018 [facility] Tramadol HCl TAKE 2 TABLETS BY MOUTH EVERY 6 HOURS Orally Active 50MG Orally every 6 hrs Ma 09/17/2017 Oumar Gramajo Prolia as directed Subcutaneous Active 60 MG/ML Subcutaneous [id number] Gramajo 09/04/2017 Oumar Gramajo Vitamin D (Ergocalciferol) 1 capsule Orally Active 71268 UNIT Orally once week Gramajo 09/04/2017 Oumar Gramajo Vitamin D (Ergocalciferol) 1 capsule Orally Active 96980 UNIT Orally once week Ma 09/04/2017 Oumar [...] 10 Mg Tablet Daily Active Eliu 04/09/2017 [facility] Benazepril , 10 Mg Oral Daily Active 02/21/2017 [facility] Warfarin Sodium (Coumadin) 5 Mg Tablet, 5 Mg Oral Daily Active 02/21/2017 [facility] Sulfasalazine (Azulfidine) 500 Mg Tablet.dr, 500 Mg Oral Active 02/18/2017 [facility] Leflunomide 1 tablet Orally Active 10 MG Orally Once a day Ma 12/17/2016 Oumar Gramajo Tramadol HCl TAKE TWO TABLETS BY MOUTH EVERY 6 HOURS Orally Active 50MG Orally every 6 hrs [place] 09/27/2016 Oumar Gramajo Boniva 1 tablet Orally Active 150 MG Orally Oncce a month Gramajo 04/20/2016 Oumar Gramajo Acetaminophen-Codeine #4 1 tablet as needed Orally Active 300- 60 MG Orally bid [place] 01/05/2016 Oumar Gramajo Sulfasalazine 4 tablets Orally Active 500MG Orally BID Ma 01/02/2016 Oumar rGamajo Sulfasalazine take two tablets Orally Active 500MG Orally three times a day Gramajo 01/18/2015 Oumar Gramajo [id number] 1 capsule Orally Active 500-50 MG Orally every 12 hrs Rik 01/06/2015 Oumar Gramajo Naproxen 1 tablet as needed Orally Active 500 MG Orally Three times a day [place] 09/22/2014 Oumar Gramajo Methotrexate 5 tablets Orally [...] Once a week Diana 03/16/2014 Oumar Gramajo Tramadol HCl TAKE TWO TABLETS BY MOUTH EVERY 6 HOURS NA Active 50MG [place] Oumar Gramajo Meloxicam 1 tablet Orally Active 7.5 MG Orally Once a day [place] Oumar Gramajo Pravastatin Sodium 1 tablet Orally Active 20 MG Orally Once a day Ma Oumar Gramajo Benazepril HCl 1 tablet Orally Active 20 MG Orally Once a day Ma Oumar Gramajo Coumadin 1 tablet Orally Active 5mg Orally once a day Ma Oumar Fisherer Coumadin 1 tablet Orally Active 2 MG Orally once a day [place] Oumar Gramajo Vitamin D 1 tablet Orally Active 1000 UNIT Orally Once a day Ma Oumar Gramajo Benazepril HCl 1 tablet Orally Active 20 MG Orally Once a day [place] Oumar Fisherer Meloxicam 1 tablet Orally Active 7.5 MG Orally Once a day [place] Oumar Gramajo Pravastatin Sodium 1 tablet Orally Active 20 MG Orally Once a day Ma Oumar Gramajo Tramadol HCl 2 tablets Orally Active 50MG Orally every 6 hrs [place] Oumar Fisherer Tramadol HCl TAKE TWO TABLETS BY MOUTH THREE TIMES DAILY NA Active 50MG [place] Oumar Fisherer Omeprazole 1 capsule Orally Active 20 MG Orally Once a day [place] Oumar Fisherer Sulfasalazine take two tablets Orally Active 500MG Orally three times a day [place] Oumar Gramajo Vitamin D (Ergocalciferol) 1 capsule Orally Active 78934 UNIT Orally once a week [place] Oumar Gramajo Tramadol one tab orally Active 50 mg orally every 4-6 hours prn pain [place] Oumar Gramajo Fosamax 1 tablet Orally Active 40 MG Orally Once a day [place] Oumar Fisherer Meloxicam 1 tablet Orally Active 7.5 MG Orally Once a day [place] Oumar Gramajo Sulfasalazine take two tablets Orally Active 500MG Orally three times a day [place] Oumar Gramajo Acetaminophen-Codeine #4 1 tablet as needed Orally Active 300- 60 MG Orally bid [place] [facility] S[facility] TAKE TWO TABLETS BY MOUTH THREE TIMES DAILY Orally Active 500MG Orally tid [facility] Amlodipine Besylate 5 Mg Tablet Daily Active [facility] Benazepril Hcl 10 Mg Tablet Daily Active [facility] Meloxicam 7.5 Mg Tablet Daily Active [facility] Pravastatin Daily Active [facility] Tramadol Hcl (Ultram) 50 Mg Tablet 2TID Active [facility] Warfarin Sodium 2.5 Mg Tablet Daily Active [facility] Allergies, Adverse Reactions, Alerts Substance Category Reaction [...] count (count/volume) 0.0 0.0 - 0.1 07/01/2018 [facility] Automated blood basophil count as percentage of total leukocytes Automated blood basophil count as percentage of total leukocytes 0.1 0.0 - 1.0 07/01/2018 [facility] Automated blood eosinophil count Automated blood eosinophil count 0.0 0.0 - 0.4 07/01/2018 [facility] Automated blood eosinophil count as percentage of total leukocytes Automated blood eosinophil count as percentage of total leukocytes 0.0 0.0 - 6.0 07/01/2018 [facility] Automated blood hematocrit (volume fraction) Automated blood hematocrit (volume fraction) 41.7 34.2 - 44.1 07/01/2018 [facility] Automated blood lymphocyte count as percentage ot total leukocytes Automated blood lymphocyte count as percentage ot total leukocytes 14.3 18.0 - 39.1 07/01/2018 [facility] Automated blood monocyte count as percentage of total leukocytes Automated blood monocyte count as percentage of total leukocytes 3.8 4.4 - 11.3 07/01/2018 [facility] Automated blood neutrophil count Automated blood neutrophil count 8.8 2.1 - 6.9 07/01/2018 [facility] Automated blood platelet count (count/volume) Automated blood platelet count (count/volume) 268 140 - 360 07/01/2018 [facility] Automated blood segmented neutrophil count as percentage of total leukocytes Automated blood segmented neutrophil count as percentage of total leukocytes 81.4 38.7 - 80.0 07/01/2018 [facility] Automated erythrocyte mean corpuscular hemoglobin (mass per erythrocyte) Automated erythrocyte mean corpuscular hemoglobin (mass per erythrocyte) 30.8 28 - 32 07/01/2018 [facility] Automated erythrocyte mean corpuscular hemoglobin concentration measurement (mass/volume) Automated erythrocyte mean corpuscular hemoglobin concentration measurement (mass/volume) 32.6 31 - 35 07/01/2018 [facility] Automated erythrocyte mean corpuscular volume Automated erythrocyte mean corpuscular volume 94.3 81 - 99 07/01/2018 [facility] Blood erythrocytes automated count (number/volume) Blood erythrocytes automated count (number/volume) 4.42 3.6 - 5.1 07/01/2018 [facility] Blood hemoglobin measurement (moles/volume) Blood hemoglobin measurement (moles/volume) 13.6 12.0 - 16.0 07/01/2018 [facility] Blood leukocytes automated count (number/volume) Blood leukocytes automated count (number/volume) 10.77 4.8 - 10.8 07/01/2018 [facility] Blood lymphocytes count (number/volume) Blood lymphocytes count (number/volume) 1.5 1.0 - 3.2 07/01/2018 [facility] Blood monocytes automated count (number/volume) Blood monocytes automated count (number/volume) 0.4 0.2 - 0.8 07/01/2018 [facility] Estimated glomerular filtration rate (GFR) determination Estimated glomerular filtration rate (GFR) determination null 60 07/01/2018 [facility] Glucose measurement Glucose measurement 158 74 - 118 07/01/2018 [facility] INR in Platelet poor plasma by Coagulation assay INR in Platelet poor plasma by Coagulation assay 1.02 07/01/2018 [facility] Plasma globulin measurement (mass/volume) Plasma globulin measurement (mass/volume) 3.5 2.3 - 3.5 07/01/2018 [facility] Prothrombin time (PT) in platelet poor plasma by coagulation assay Prothrombin time (PT) in platelet poor plasma by coagulation assay 12.6 11.9 - 14.5 07/01/2018 [facility] Serum or plasma alanine aminotransferase measurement (enzymatic activity/volume) Serum or plasma alanine aminotransferase measurement (enzymatic activity/volume) 28 0 - 55 07/01/2018 [facility] Serum or plasma albumin measurement (mass/volume) Serum or plasma albumin measurement (mass/volume) 3.1 3.5 - 5.0 07/01/2018 [facility] Serum or plasma albumin/globulin mass ratio Serum or plasma albumin/globulin mass ratio 0.9 0.8 - 2.0 07/01/2018 [facility] Serum or plasma alkaline phosphatase measurement (enzymatic activity/volume) Serum or plasma alkaline phosphatase measurement (enzymatic activity/volume) 112 40 - 150 07/01/2018 [facility] Serum or plasma anion gap Serum or plasma anion gap 14.0 8 - 16 07/01/2018 [facility] Serum or plasma calcium measurement (mass/volume) Serum or plasma calcium measurement (mass/volume) 9.4 8.4 - 10.2 07/01/2018 [facility] Serum or plasma carbon dioxide, total measurement (moles/volume) Serum or plasma carbon dioxide, total measurement (moles/volume) 34 22 - 29 07/01/2018 [facility] Serum or plasma chloride measurement (moles/volume) Serum or plasma chloride measurement (moles/volume) 102 98 - 107 07/01/2018 [facility] Serum or plasma creatinine measurement (mass/volume) Serum or plasma creatinine measurement (mass/volume) 0.80 0.57 - 1.11 07/01/2018 [facility] Serum or plasma potassium measurement (moles/volume) Serum or plasma potassium measurement (moles/volume) 5.0 3.5 - 5.1 07/01/2018 [facility] Serum or plasma protein measurement (mass/volume) Serum or plasma protein measurement (mass/volume) 6.6 6.5 - 8.1 07/01/2018 [facility] Serum or plasma sodium measurement (moles/volume) Serum or plasma sodium measurement (moles/volume) 145 136 - 145 07/01/2018 [facility] Serum or plasma total bilirubin measurement (mass/volume) Serum or plasma total bilirubin measurement (mass/volume) 0.5 0.2 - 1.2 07/01/2018 [facility] Serum or plasma urea nitrogen measurement (mass/volume) Serum or plasma urea nitrogen measurement (mass/volume) 22 7 - 26 07/01/2018 [facility] Serum or plasma urea nitrogen/creatinine mass ratio Serum or plasma urea nitrogen/creatinine mass ratio 28 6 - 25 07/01/2018 [facility] Red Cell Distribution Width 15.9 11.7 - 14.4 07/01/2018 [facility] IM GRANULOCYTES % 0.4 0.0 - 1.0 07/01/2018 [facility] Absolute Immature Granulocyte (auto 0.04 0 - 0.1 07/01/2018 [facility] Aspartate Amino Transf (AST/SGOT) 19 5 - 34 07/01/2018 [facility] Serum or plasma creatine kinase MB measurement (mass/volume) Serum or plasma creatine kinase MB measurement (mass/volume) 3.30 0 - 5.0 06/30/2018 [facility] Serum or plasma creatine kinase measurement (enzymatic activity/volume) Serum or plasma creatine kinase measurement (enzymatic activity/volume) 74 29 - 168 06/30/2018 [facility] Troponin I measurement by highly sensitive enzyme immunoassay Troponin I measurement by highly sensitive enzyme immunoassay 0.038 0 - 0.300 06/30/2018 [facility] Activated partial thromboplastin time (aPTT) in platelet poor plasma bycoagulation assay Activated partial thromboplastin time (aPTT) in platelet poor plasma bycoagulation assay 28.9 23.8 - 35.5 06/29/2018 [facility] B-Type Natriuretic Peptide 88.6 0 - 100 06/29/2018 [facility] Serum or plasma trough vancomycin level at trough (mass/volume) Serum or plasma trough vancomycin level at trough (mass/volume) 11.2 5.0 - 10.0 02/16/2018 [facility] Blood platelets count by estimate (number/volume) Blood platelets count by estimate (number/volume) MODERATELY INCREASED 02/16/2018 [facility] Manual blood band neutrophils form/100 leukocytes Manual blood band neutrophils form/100 leukocytes 4 02/16/2018 [facility] Manual blood lymphocytes/100 leukocytes Manual blood lymphocytes/100 leukocytes 22 19 - 48 02/16/2018 [facility] Manual blood monocytes/100 leukocytes Manual blood monocytes/100 leukocytes 5 3.4 - 9.0 02/16/2018 [facility] Manual blood neutrophils/100 leukocytes Manual blood neutrophils/100 leukocytes 69 40 - 74 02/16/2018 [facility] Platelet morphology Platelet morphology NORMAL 02/16/2018 [facility] RBC morphology RBC morphology NORMAL 02/16/2018 [facility] Differential Total Cells Counted 100 02/16/2018 [facility] Arterial blood base excess by calculation Arterial blood base excess by calculation 9.0 -2 - 3 - 2 02/13/2018 [facility] Arterial blood bicarbonate measurement (moles/volume) Arterial blood bicarbonate measurement (moles/volume) 35 23 - 28 02/13/2018 [facility] Arterial blood oxygen saturation measurement Arterial blood oxygen saturation measurement 90.0 95 - 98 02/13/2018 [facility] Arterial blood pH measurement Arterial blood pH measurement 7.34 7.31 - 7.41 02/13/2018 [facility] Arterial Blood Partial Pressure CO2 65 41 - 51 02/13/2018 [facility] Arterial Blood Partial Pressure O2 65 80 - 105 02/13/2018 [facility] Amorphous sediment detection in urine sediment by light microscopy Amorphous sediment detection in urine sediment by light microscopy RARE FEW 02/13/2018 [facility] Automated urine sediment leukocyte count by microscopy (number/high power field) Automated urine sediment leukocyte count by microscopy (number/high power field) NONE 0 - 5 02/13/2018 [facility] Bacteria detection in urine sediment by light microscopy Bacteria detection in urine sediment by light microscopy NONE NONE 02/13/2018 [facility] Coarse granular casts detection in urine sediment by light microscopy Coarse granular casts detection in urine sediment by light microscopy null 0 02/13/2018 [facility] Epithelial cells detection in urine sediment by light microscopy Epithelial cells detection in urine sediment by light microscopy NONE NONE 02/13/2018 [facility] Erythrocytes detection in urine sediment by light microscopy Erythrocytes detection in urine sediment by light microscopy null 0 - 5 02/13/2018 [facility] Specific gravity of Urine by Test strip Specific gravity of Urine by Test strip 1.025 1.010 - 1.025 02/13/2018 [facility] Urine clarity Urine clarity SL CLOUDY CLEAR 02/13/2018 [facility] Urine color determination Urine color determination YELLOW YELLOW 02/13/2018 [facility] Urine erythrocytes detection Urine erythrocytes detection 3+ NEGATIVE 02/13/2018 [facility] Urine glucose detection Urine glucose detection NEGATIVE NEGATIVE 02/13/2018 [facility] Urine ketones detection by automated test strip Urine ketones detection by automated test strip NEGATIVE NEGATIVE 02/13/2018 [facility] Urine Legionella pneumophila 1 antigen detection by immunoassay Urine Legionella pneumophila 1 antigen detection by immunoassay Negative Negative 02/13/2018 [facility] Urine leukocyte esterase detection by dipstick Urine leukocyte esterase detection by dipstick NEGATIVE NEGATIVE 02/13/2018 [facility] Urine nitrite detection Urine nitrite detection NEGATIVE NEGATIVE 02/13/2018 [facility] Urine pH measurement by automated test strip Urine pH measurement by automated test strip 5 5 - 7 02/13/2018 [facility] Urine protein measurement by test strip (mass/volume) Urine protein measurement by test strip (mass/volume) 2+ NEGATIVE 02/13/2018 [facility] Urine total bilirubin measurement (mass/volume) Urine total bilirubin measurement (mass/volume) NEGATIVE NEGATIVE 02/13/2018 [facility] Urine urobilinogen measurement by test strip (mass/volume) Urine urobilinogen measurement by test strip (mass/volume) 1 0.2 - 1 02/13/2018 [facility] Influenza virus A and B antigen identification by immunofluorescence Influenza virus A and B antigen identification by immunofluorescence NEGATIVE NEGATIVE 02/13/2018 [facility] Blood culture Blood culture NO GROWTH AFTER 5 DAYS, FINAL REPORT 02/13/2018 [facility] Serum or plasma magnesium measurement (mass/volume) Serum or plasma magnesium measurement (mass/volume) 1.6 1.3 - 2.1 02/13/2018 [facility] Lactic Acid Level 9.4 4.5 - 19.8 02/13/2018 [facility] Vital Signs Vital Sign Value Date Comments [...] Preston Gramajo MD follow u for refills [id number] 03/16/2014 03/16/2014 Oumar Gramajo MD follow u for refills [id number] 03/16/2014 03/16/2014 Oumar Gramajo MD follow u for refills [id number] 03/16/2014 03/16/2014 Oumar Gramajo MD follow u for refills [id number] 03/16/2014 03/16/2014 Oumar Gramajo MD follow u for refills [id number] 03/16/2014 03/16/2014 Oumar Gramajo MD follow u for refills [id number] 03/16/2014 03/16/2014 Oumar Gramajo MD follow u for refills [id number] 03/16/2014 03/16/2014 Oumar Gramajo MD follow u for refills [id number] 03/16/2014 03/16/2014 Oumar Gramajo MD follow u for refills [id number] 03/16/2014 03/16/2014 Oumar Gramajo MD follow u for refills [id number] 03/16/2014 03/16/2014 Oumar Gramajo MD follow u for refills [id number] 03/16/2014 03/16/2014 Oumar Gramajo MD follow u for refills [id number] 03/16/2014 03/16/2014 Oumar Gramajo MD follow u for refills [id number] 03/16/2014 03/16/2014 Oumar Gramajo MD follow u for refills [id number] 03/16/2014 03/16/2014 Oumar Garmajo MD follow u for refills [id number] 03/16/2014 03/16/2014 Oumar Gramajo MD follow u for refills [id number] 03/16/2014 03/16/2014 Oumar Gramajo MD follow u for refills [id number] 03/16/2014 03/16/2014 Oumar Gramajo MD follow u for refills [id number] 03/16/2014 03/16/2014 Oumar Gramajo MD follow u for refills [id number] 03/16/2014 03/16/2014 Oumar Gramajo MD follow u for refills [id number] 03/16/2014 03/16/2014 Oumar Gramajo MD follow u for refills [id number] 03/16/2014 03/16/2014 Oumar Gramajo MD follow u for refills [id number] 03/16/2014 03/16/2014 Oumar Gramajo MD follow u for refills [id number] 03/16/2014 03/16/2014 Oumar Gramajo MD follow u for refills [id number] 03/16/2014 03/16/2014 Oumar Gramajo MD follow u for refills [id number] 03/16/2014 03/16/2014 Oumar Gramajo MD follow u for refills [id number] 03/16/2014 03/16/2014 Oumar Gramajo MD follow u for refills [id number] 03/16/2014 03/16/2014 Oumar Gramajo MD follow u for refills [id number] 03/16/2014 03/16/2014 Oumar Gramajo MD follow u for refills [id number] 03/16/2014 03/16/2014 Oumar Gramajo MD follow u for refills [id number] 03/16/2014 03/16/2014 Oumar Gramajo MD follow u for refills [id number] 03/16/2014 03/16/2014 Oumar Gramajo MD follow u for refills [id number] 03/16/2014 03/16/2014 Oumar Gramajo MD follow u for refills [id number] 06/01/2014 06/01/2014 Oumar Gramajo MD follow u for refills [id number] 06/01/2014 06/01/2014 Oumar Gramajo MD follow u for refills [id number] 06/01/2014 06/01/2014 Oumar Gramajo MD follow u for refills [id number] 06/01/2014 06/01/2014 Oumar Gramajo MD follow u for refills [id number] 06/01/2014 06/01/2014 Oumar Gramajo MD follow u for refills [id number] 06/01/2014 06/01/2014 Oumar Gramajo MD follow u for refills [id number] 06/01/2014 06/01/2014 Oumar Gramajo MD follow u for refills [id number] 06/01/2014 06/01/2014 Oumar Gramajo MD follow u for refills [id number] 06/01/2014 06/01/2014 Oumar Gramajo MD follow u for refills [id number]-l02u-1d15-7692-l35u3a270f56 06/01/2014 06/01/2014 Oumar Gramajo MD follow u for refills 8i08dx79-531c-8jte-1169-073509729178 06/01/2014 06/01/2014 Oumar Gramajo MD follow u for refills [id number]-1p85-0n09-7475-71197f125psf 06/01/2014 06/01/2014 Oumar Gramajo MD follow u for refills 57w148q0-4203-3u04-h910-p22g71296086 06/01/2014 06/01/2014 Oumar Gramajo MD follow u for refills ws535a77-128b-78a5-9t35-1k8251qy4004 06/01/2014 06/01/2014 Oumar Gramajo MD follow u for refills 9p6tj457-zg02-46cl-frkr-2fv6o1eem0ww 06/01/2014 06/01/2014 Oumar Gramajo MD follow u for refills 0a5y9m40-6141-3655-7079-88xps9m0716f 06/01/2014 06/01/2014 Oumar Gramajo MD follow u for refills 220xnp81-yfa3-26r8-bw4q-k0190064795u 06/01/2014 06/01/2014 Oumar Gramajo MD follow u for refills l30eq4d5-01p4-25m7-12d6-57t0n552i583 06/01/2014 06/01/2014 Oumar Gramajo MD follow u for refills [id number]-b52i-9wx4-975v-248482wc41e2 06/01/2014 06/01/2014 Oumar Gramajo MD follow u for refills dm9el444-9074-1p40-7354-4y55ar95o7i0 06/01/2014 06/01/2014 Oumar Gramajo MD follow u for refills 571c017a-946e-87yf-9ro0-97020z85r482 06/01/2014 06/01/2014 Oumar Gramajo MD follow u for refills 17042045-7f84-32e7-13nr-9sf4ep23q586 06/01/2014 06/01/2014 Oumar Gramajo MD follow u for refills 50745tp5-059d-28w1-4wla-p9793b430ni6 06/01/2014 06/01/2014 Oumar Gramajo MD follow u for refills 7a454xf6-i27f-1n6v-5a2r-358m91328715 06/01/2014 06/01/2014 Oumar Gramajo MD follow u for refills hy15gt78-807v-4058-33og-1xm92ytt92ec 06/01/2014 06/01/2014 Oumar Gramajo MD follow u for refills 5l125vz9-f0me-6338-sg16-av9t87c0f2xi 06/01/2014 06/01/2014 Oumar Gramajo MD follow u for refills q4v1563t-kw22-5kyp-308o-887709s7k1ww 06/01/2014 06/01/2014 Oumar Gramajo MD follow u for refills m5ss6ho8-0045-8355-arv7-03d613yz9i5g 06/01/2014 06/01/2014 Oumar Gramajo MD follow u for refills 20s16m4g-c1fq-39oz-4244-9a8d99002onx 06/01/2014 06/01/2014 Oumar Gramajo MD follow u for refills 3486m014-0h36-8l34-0209-r282eq923849 06/01/2014 06/01/2014 Oumar Gramajo MD follow u for refills 3y49c455-u2f1-49f6-9m33-uf2x1253r935 06/01/2014 06/01/2014 Oumar Gramajo MD sulfasalazine 3127e5h0-107c-6625-7097-q973qzyk2my8 06/04/2014 06/04/2014 Oumar Gramajo MD sulfasalazine 00e4120g-lz27-2i8a-l2b2-vh8vf75bx545 06/04/2014 06/04/2014 Oumar Gramajo MD sulfasalazine i819c6k2-2fj5-1n9e-494n-248m17t1g704 06/04/2014 06/04/2014 Oumar Gramajo MD sulfasalazine 3r641b7i-1732-6336-10h5-8063wbxgz033 06/04/2014 06/04/2014 Oumar Gramajo MD sulfasalazine 7o68n846-pbuz-5913-43x3-1701874868i9 06/04/2014 06/04/2014 Oumar Gramajo MD sulfasalazine 18636715-745y-0eze-gc4f-3w4mg9820828 06/04/2014 06/04/2014 Oumar Gramajo MD sulfasalazine 9ro0c4g1-4009-216j-vm3c-971etr30048g 06/04/2014 06/04/2014 Oumar Gramajo MD sulfasalazine pn9l923v-otg0-9c7c-fw66-8z10i8e15725 06/04/2014 06/04/2014 Oumar Gramajo MD sulfasalazine cu3177eh-656b-1ap0-x043-2q8c2i9fy90f 06/04/2014 06/04/2014 Oumar Gramajo MD sulfasalazine 508sn957-s7r1-8500-n2b3-i4sh97m8cbd2 06/04/2014 06/04/2014 Oumar Gramajo MD sulfasalazine 91n93314-935a-98qf-8226-0s308213y1c5 06/04/2014 06/04/2014 Oumar Gramajo MD sulfasalazine xhq2u02c-vc7w-2fl0-93wp-75a8u7x5a303 06/04/2014 06/04/2014 Oumar Gramajo MD sulfasalazine 183b8n5u-56rv-3k67-8206-byzpybi40114 06/04/2014 06/04/2014 Oumar Gramajo MD sulfasalazine 564895o5-5f8u-508c-na9k-5o66042c9759 06/04/2014 06/04/2014 Oumar Gramajo MD sulfasalazine 61z6w89o-i2j8-5rp6-p792-v0d4n35nr38m 06/04/2014 06/04/2014 Oumar Gramajo MD sulfasalazine 5bv7795f-8z3w-8c55-vv2g-ns0ny93n4d61 06/04/2014 06/04/2014 Oumar Gramajo MD sulfasalazine 311pg460-7762-072x-y56u-4gb08g99i64i 06/04/2014 06/04/2014 Oumar Gramajo MD sulfasalazine 4c07w8s0-3a82-59i6-0936-xc3m7e7w0zmg 06/04/2014 06/04/2014 Oumar Gramajo MD sulfasalazine 44i11c1m-w2ie-9d2o-9ah4-i167y3p9n6q0 06/04/2014 06/04/2014 Oumar Gramajo MD sulfasalazine 8jt3w825-dyk5-3sdj-v908-50408s06g1p4 06/04/2014 06/04/2014 Oumar Gramajo MD sulfasalazine c1n1n9ox-bi67-26vv-0j4j-7582iu369536 06/04/2014 06/04/2014 Oumar Gramajo MD sulfasalazine 1009gzbt-aw60-7s24ol17-3b47-1807-j599t6z1474h 06/04/2014 06/04/2014 Oumar Gramajo MD sulfasalazine 33saqz2d-iy0n-58l4-127z-l620n987om66 06/04/2014 06/04/2014 Oumar Gramajo MD sulfasalazine 7b29nx3g-32p0-224o-o125-t3z63l73w409 06/04/2014 06/04/2014 Oumar Gramajo MD sulfasalazine n1367m69-ouvm-779p-523a-2543480nu29n 06/04/2014 06/04/2014 Oumar Gramajo MD sulfasalazine 8554jn43-8ms4-79n9-96ys-8lc405506033 06/04/2014 06/04/2014 Oumar Gramajo MD sulfasalazine 0cd471xg-r305-2a00-g330-r81x1i2oi59n 06/04/2014 06/04/2014 Oumar Gramajo MD sulfasalazine n9792b8y-ku09-37w1-dwv3-5z2423v8v492 06/04/2014 06/04/2014 Oumar Gramajo MD sulfasalazine e6557jku-316u-8w97-4975-ah5w32090917 06/04/2014 06/04/2014 Oumar Gramajo MD sulfasalazine d4995807-w018-11rx-j9n2-2619c6qr8h96 06/04/2014 06/04/2014 Oumar Gramajo MD sulfasalazine k35hz3z0-87g5-9720-d79q-584f35e3ll8y 06/04/2014 06/04/2014 Oumar Gramajo MD Refill- Tramadol a5958jg3-1004-7584-7gp6-6hk904hl490w 07/21/2014 07/21/2014 Oumar Gramajo MD Refill- Tramadol 29s00f9p-30p0-9u18-x667-4g4ej7573x35 07/21/2014 07/21/2014 Oumar Gramajo MD Refill- Tramadol nj39hqs6-1z2o-2z49-6q11-r6x9o222008i 07/21/2014 07/21/2014 Oumar Gramajo MD Refill- Tramadol 274u9x61-k560-583i-z53j-02173l7i012g 07/21/2014 07/21/2014 Oumar Gramajo MD Refill- Tramadol o6emm3r4-3177-487y-ju5q-x5s58of09124 07/21/2014 07/21/2014 Oumar Gramajo MD Refill- Tramadol 8371j5qn-3aq9-1n5i-1757-35u7k6i904i0 07/21/2014 07/21/2014 Oumar Gramajo MD Refill- Tramadol xq4329ml-ln6q-40w7-f909-68663ke29c62 07/21/2014 07/21/2014 Oumar Gramajo MD Refill- Tramadol jsi767n4-kf21-3w0v-1747-6r328ax8hi68 07/21/2014 07/21/2014 Oumar Gramajo MD Refill- Tramadol s864sf68-5d42-9nji-974s-bm212048zgep 07/21/2014 07/21/2014 Oumar Gramajo MD Refill- Tramadol 105g8b92-9084-850s-4661-f1m0i7c4247m 07/21/2014 07/21/2014 Oumar Gramajo MD Refill- Tramadol r3066fur-7q23-5682-42ky-kq61knwf4wi5 07/21/2014 07/21/2014 Oumar Gramajo MD Refill- Tramadol 864lx9ii-fi65-43ok-y122-466eg24np21n 07/21/2014 07/21/2014 Oumar Gramajo MD Refill- Tramadol 444c4124-95q6-06n1-o140-h767i42ch236 07/21/2014 07/21/2014 Omuar Gramajo MD Refill- Tramadol 6603yge8-hrna-5s0q-54d7-e506046228ed 07/21/2014 07/21/2014 Oumar Gramajo MD Refill- Tramadol h794o48p-3l93-6h4v-06zp-8ryfo53aj2zd 07/21/2014 07/21/2014 Oumar Gramajo MD Refill- Tramadol o271a99g-1agt-1305-62y1-28048x00161v 07/21/2014 07/21/2014 Oumar Gramajo MD Refill- Tramadol xbo87p72-625u-125f-j673-y4175fk242q8 07/21/2014 07/21/2014 Oumar Gramajo MD Refill- Tramadol 41q353hq-m743-278f-2525-02099o72nyy8 07/21/2014 07/21/2014 Oumar Gramajo MD Refill- Tramadol 080f575z-pi9j-61y6-774k-1m72s5z69e0g 07/21/2014 07/21/2014 Oumar Gramajo MD Refill- Tramadol 48091e5k-4g9b-6252-rv82-715i0z6a8n5w 07/21/2014 07/21/2014 Oumar Gramajo MD Refill- Tramadol l88347qy-3020-1g4y-6541-q92067b6pz77 07/21/2014 07/21/2014 Oumar Gramajo MD Refill- Tramadol 393cec24-73e2-7p38-73y8-zex403fhz8zs 07/21/2014 07/21/2014 Oumar Gramajo MD Refill- Tramadol 3u38x8t6-8624-8626-be35-9106rm7738r9 07/21/2014 07/21/2014 Oumar Gramajo MD Refill- Tramadol 30206r95-503w-2guo-f029-gonx4bc31hg8 07/21/2014 07/21/2014 Oumar Gramajo MD Refill- Tramadol faz05o10-43c2-9482-yj03-228m2xi7v67x 07/21/2014 07/21/2014 Oumar Gramajo MD Refill- Tramadol 73998175-2941-6130-a2h3-87twwz8615h2 07/21/2014 07/21/2014 Oumar Gramajo MD Refill- Tramadol 4982ufb1-47i0-3lo2-f8u2-060n671120yv 07/21/2014 07/21/2014 Oumar Gramajo MD Refill- Tramadol 3ca67537-rg66-805e-05wt-4qk83f457959 07/21/2014 07/21/2014 Oumar Gramajo MD Refill- Tramadol 9f6e1c82-00s2-5s0m-me1u-9p969uw013s7 07/21/2014 07/21/2014 Oumar Gramajo MD tramadol- refill zf63eh1r-5yor-81x0-c3p3-0479jt722dk1 08/20/2014 08/20/2014 Oumar Gramajo MD tramadol- refill 64x0ukdi-f406-6394-1u9l-6hjf46r4255r 08/20/2014 08/20/2014 Oumar Gramajo MD tramadol- refill 0ai25332-38w6-189s-5965-ek81704c19fk 08/20/2014 08/20/2014 Oumar Gramajo MD tramadol- refill 9g8674ix-n4io-7r3s-8490-h27u32p248ly 08/20/2014 08/20/2014 Oumar Gramajo MD tramadol- refill z077f218-gypb-2jr5-3f5z-32u24v56v2d9 08/20/2014 08/20/2014 Oumar Gramajo MD tramadol- refill f1787785-r992-698d-qw0l-629r155x2322 08/20/2014 08/20/2014 Oumar Gramajo MD tramadol- refill 123536c7-ubz1-30e0-rdu2-y8562x417e9n 08/20/2014 08/20/2014 Oumar Gramajo MD tramadol- refill 4l914hr7-4w87-361j-73m9-gtl42n053n26 08/20/2014 08/20/2014 Oumar Gramajo MD tramadol- refill 8h682747-0ry7-5v14-x56w-078o65sn2s8l 08/20/2014 08/20/2014 Oumar Gramajo MD tramadol- refill 84101646-9431-98p9-7um4-16c9rk392u5e 08/20/2014 08/20/2014 Oumar Gramajo MD tramadol- refill 7tk081h7-8s86-870m-w1n8-u4124dw1r3os 08/20/2014 08/20/2014 Oumar Gramajo MD tramadol- refill 245hp681-9667-1m08-9uu9-xg601uep0w77 08/20/2014 08/20/2014 Oumar Gramajo MD tramadol- refill 619909c6-t232-053l-0f9l-u5qf178709xp 08/20/2014 08/20/2014 Oumar Gramajo MD tramadol- refill 9ftc47b0-g951-6333-t057-8fr86ua00q9e 08/20/2014 08/20/2014 Oumar Gramajo MD tramadol- refill 0rvkrgt3-82aa-0445-w1d9-r5979y95487t 08/20/2014 08/20/2014 Oumar Gramajo MD tramadol- refill 4ev7bh8o-2u68-2sf7-78i7-3061d973oa8o 08/20/2014 08/20/2014 Oumar Gramajo MD tramadol- refill 941009ks-f255-3n40-f4xu-5i23l0rsr059 08/20/2014 08/20/2014 Oumar Gramajo MD tramadol- refill 3n3mrlv2-7011-8u54-q6q3-701y4p0m1039 08/20/2014 08/20/2014 Oumar Gramajo MD tramadol- refill 0604740l-a9q7-2ei3-r483-c3wgtd7954zn 08/20/2014 08/20/2014 Oumar Gramajo MD tramadol- refill 6796zqhi-77b0-55he25w6-82pe-0297-5n0bh4017m78 08/20/2014 08/20/2014 Oumar Gramajo MD tramadol- refill 5f2hjrb4-mz53-0zr7-326h-uy1ahsp2a2b0 08/20/2014 08/20/2014 Oumar Gramajo MD tramadol- refill tr706u14-h1z7-0n63-p180-w2rnk26ps21z 08/20/2014 08/20/2014 Oumar Gramajo MD tramadol- refill 908rm837-2a8a-5w7d-45q7-rl83z55010m0 08/20/2014 08/20/2014 Oumar Gramajo MD tramadol- refill icxdgn4f-m917-3stv-b55b-7xvja49i1c07 08/20/2014 08/20/2014 Oumar Gramajo MD tramadol- refill 3nmwig6r-830q-61o8-cgaq-17q57ydlpg35 08/20/2014 08/20/2014 Oumar Gramajo MD tramadol- refill u0492s8h-z952-7f8z-ujo9-rhw39o263828 08/20/2014 08/20/2014 Oumar Gramajo MD tramadol- refill 07po127u-7881-2g3j-u317-r80s968r0z7z 08/20/2014 08/20/2014 Oumar Gramajo MD tramadol- refill zzj37n28-3dco-5390-c3nk-5vc576n49i05 08/20/2014 08/20/2014 Oumar Gramajo MD tramadol- refill 85197636-7mbs-7012-7w6y-5151c31n4rt6 08/20/2014 08/20/2014 Oumar Gramajo [facility] [place] [facility] [id number] Kelechi Peacock MD 09/07/2014 09/07/2014 [facility] [place] Gramajo MD RX Request-- Sulfasalazine 36t1mhu6-22b6-0z73-y192-9m55p2661oy0 09/20/2014 09/20/2014 Oumar Gramajo MD RX Request-- Sulfasalazine vq95j1a8-70j1-0c3e-r85c-f9o6ae5v98x3 09/20/2014 09/20/2014 Oumar Gramajo MD RX Request-- Sulfasalazine 7c687f93-iv72-7pcu-p4s5-2i07cm1t9s75 09/20/2014 09/20/2014 Oumar Gramajo MD RX Request-- Sulfasalazine n55553kn-mv9i-776r-r0t2-q5b775n2665i 09/20/2014 09/20/2014 Oumar Gramajo MD RX Request-- Sulfasalazine 29x71636-2zc8-9639-6g9j-mf32w33d55n9 09/20/2014 09/20/2014 Oumar Gramajo MD RX Request-- Sulfasalazine ui12kz61-bo87-87j0-rq0v-c5q78673t0ki 09/20/2014 09/20/2014 Oumar Gramajo MD RX Request-- Sulfasalazine 9960854i-f9m9-559o-jc24-7s2847s6q08e 09/20/2014 09/20/2014 Oumar Gramajo MD RX Request-- Sulfasalazine 4071skwt-0g86-55h34b73-18j3-8738-621yyp821tn6 09/20/2014 09/20/2014 Oumar Gramajo MD RX Request-- Sulfasalazine s88x6q43-875r-8ga0-7619-99a38p3md519 09/20/2014 09/20/2014 Oumar Gramajo MD RX Request-- Sulfasalazine 7k2ri7z6-02s7-9121-4558-e586ne5938w8 09/20/2014 09/20/2014 Oumar Gramajo MD RX Request-- Sulfasalazine 0sybi45s-73pn-840d-7475-l2v6b7k18d4y 09/20/2014 09/20/2014 Oumar Gramajo MD RX Request-- Sulfasalazine 26mo5o0j-meg2-0300-q68z-31i9au5c5z35 09/20/2014 09/20/2014 Oumar Gramajo MD RX Request-- Sulfasalazine ph2s5ss3-t00n-05n4-63dw-q6gr920oyns7 09/20/2014 09/20/2014 Oumar Gramajo MD RX Request-- Sulfasalazine 253ja172-7427-6232-7424-byo9yej48jaq 09/20/2014 09/20/2014 Oumar Gramajo MD RX Request-- Sulfasalazine 98932406-5174-4u77-x4b1-43rzz9ifwn37 09/20/2014 09/20/2014 Oumar Gramajo MD RX Request-- Sulfasalazine 97t2rfq7-l21s-6a4j-9070-is895468q468 09/20/2014 09/20/2014 Oumar Gramajo MD RX Request-- Sulfasalazine 4c895509-ij7x-7rgt-o1p4-99466pf4889r 09/20/2014 09/20/2014 Oumar Gramajo MD RX Request-- Sulfasalazine ilj50268-j9b8-0911-u293-3201s7q69306 09/20/2014 09/20/2014 Oumar Gramajo MD RX Request-- Sulfasalazine a4o56pcw-9651-171k-9k90-0y32ps8v634r 09/20/2014 09/20/2014 Oumar Gramajo MD RX Request-- Sulfasalazine 19zhk837-5roh-291u-k62r-548ics8l7f74 09/20/2014 09/20/2014 Oumar Gramajo MD RX Request-- Sulfasalazine 312vouo8-42d6-45wz-n6ne-oc7tm7h118d7 09/20/2014 09/20/2014 Oumar Gramajo MD RX Request-- Sulfasalazine 01e6883y-uuh5-60yh-2vw3-9ys22m1nh0x4 09/20/2014 09/20/2014 Oumar Gramajo MD RX Request-- Sulfasalazine 4cy674bh-7132-6var-zzss-93a4z9p9g112 09/20/2014 09/20/2014 Oumar Gramajo MD RX Request-- Sulfasalazine 343dt815-5wz4-2526-e991-x3iu2gj3x67c 09/20/2014 09/20/2014 Oumar Gramajo MD RX Request-- Sulfasalazine 9044w6tf-4482-9l0s-zk8l-0vr64sn63pj6 09/20/2014 09/20/2014 Oumar Gramajo MD RX Request-- Sulfasalazine e28e78o2-n797-5yb3-7655-418t9731038w 09/20/2014 09/20/2014 Oumar Gramajo MD RX Request-- Sulfasalazine 424496cx-a210-4976-6h55-1t3v5z7lr9l4 09/20/2014 09/20/2014 Oumar Gramajo MD RX Request-- Naproxen m90bpo55-eqqf-6kk5-f5v6-n360xn6j6dg9 09/22/2014 09/22/2014 Oumar Gramajo MD RX Request-- Naproxen 072p8x1r-740k-1003-ww38-6y1n563n5nx1 09/22/2014 09/22/2014 Oumar Gramajo MD RX Request-- Naproxen aa46q639-637h-9g09-6962-v3cqe94h12w6 09/22/2014 09/22/2014 Oumar Gramajo MD RX Request-- Naproxen 646h1hd3-02e9-5u95-1j7a-x7160y106193 09/22/2014 09/22/2014 Oumar Gramajo MD RX Request-- Naproxen 590eo971-736s-3lbw-n24c-s4eco1s6m6xs 09/22/2014 09/22/2014 Oumar Gramajo MD RX Request-- Naproxen 7b675i96-e9z4-2g69-k982-8j364745xp56 09/22/2014 09/22/2014 Oumar Gramajo MD RX Request-- Naproxen id79p5s6-66x3-27kr-g7h5-be232d996770 09/22/2014 09/22/2014 Oumar Gramajo MD RX Request-- Naproxen 1x8ev86x-58bi-3n57-6485-e045dx720aea 09/22/2014 09/22/2014 Oumar Gramajo MD RX Request-- Naproxen 43g41405-94dm-27xy-x2d3-f1q701kn33qc 09/22/2014 09/22/2014 Oumar Gramajo MD RX Request-- Naproxen 7946159i-u69w-2r90-hg3w-2ow440u0367s 09/22/2014 09/22/2014 Oumar Gramajo MD RX Request-- Naproxen 7cfc537q-w3h5-1428-65n2-339ef1g0e53y 09/22/2014 09/22/2014 Oumar Gramajo MD RX Request-- Naproxen cx91i03w-0k03-7xwk-n24o-0x1o4147d40d 09/22/2014 09/22/2014 Oumar Gramajo MD RX Request-- Naproxen 89l83285-60i7-1311-39t7-9867820246e4 09/22/2014 09/22/2014 Oumar Gramajo MD RX Request-- Naproxen sl03d7c6-g69i-5w5a-5864-94w94m8jb636 09/22/2014 09/22/2014 Oumar Gramajo MD RX Request-- Naproxen 87g34y49-0479-191j-r097-2g5au3785x16 09/22/2014 09/22/2014 Oumar Gramajo MD RX Request-- Naproxen 9p5w34j6-dnl1-523v-6194-451794129300 09/22/2014 09/22/2014 Oumar Gramajo MD RX Request-- Naproxen 618p2616-3n42-1k6a-7j4o-95h5315vo245 09/22/2014 09/22/2014 Oumar Gramajo MD RX Request-- Naproxen p97bxo17-m7o0-9r91-6677-71i254qw7sh4 09/22/2014 09/22/2014 Oumar Gramajo MD RX Request-- Naproxen 1akiv276-5461-53t7-70i5-dauic9z94332 09/22/2014 09/22/2014 Oumar Gramajo MD RX Request-- Naproxen 03u342d9-4a81-6qh7-6c19-41y5mh07u0j2 09/22/2014 09/22/2014 Oumar Gramajo MD RX Request-- Naproxen lhy3831m-0tdi-4365-84lc-inia99g0m2l5 09/22/2014 09/22/2014 Oumar Gramajo MD RX Request-- Naproxen r35765cq-q269-4z65-tsp5-81mj455a6v5z 09/22/2014 09/22/2014 Oumar Gramajo MD RX Request-- Naproxen 39yqkq84-s42f-4933-7206-mrkik243ii42 09/22/2014 09/22/2014 Oumar Gramajo MD RX Request-- Naproxen 1dh90e7w-4320-39r2-091u-pp3kd50c171l 09/22/2014 09/22/2014 Oumar Gramajo MD RX Request-- Naproxen x8ycd357-s535-6o70-z594-o126836d0kew 09/22/2014 09/22/2014 Oumar Gramajo MD RX Request-- Naproxen z4803v8m-8el5-0q4f-74h1-z1j796113406 09/22/2014 09/22/2014 Oumar Gramajo MD Refill- Naproxen 421za039-mp7v-5024-i0ga-amr21820j716 09/24/2014 09/24/2014 Oumar Gramajo MD Refill- Naproxen fv028800-usf8-1318-ke2t-0650e1683485 09/24/2014 09/24/2014 Oumar Gramajo MD Refill- Naproxen h4u1h4w1-uk53-9yb5-w294-2o06p0qt8609 09/24/2014 09/24/2014 Oumar Gramajo MD Refill- Naproxen s5l82426-96ho-7e39-2s04-y586qh246089 09/24/2014 09/24/2014 Oumar Gramajo MD Refill- Naproxen 208rp382-1yy6-3bgf-m13g-30465cso5384 09/24/2014 09/24/2014 Oumar Gramajo MD Refill- Naproxen s724p553-8829-938o-360c-2q7m70j13y43 09/24/2014 09/24/2014 Oumar Gramajo MD Refill- Naproxen 2cu57frl-jz20-20hd-c269-674gcn756m30 09/24/2014 09/24/2014 Oumar Gramajo MD Refill- Naproxen 3j45a4s0-u566-8t81-s1hr-615i30r4i33p 09/24/2014 09/24/2014 Oumar Gramajo MD Refill- Naproxen 9wi12ej2-30x9-18rr-535g-3v402dql3j25 09/24/2014 09/24/2014 Oumar Gramajo MD Refill- Naproxen t8061yt8-jxs8-866b-d83v-43004352e77i 09/24/2014 09/24/2014 Oumar Gramajo MD Refill- Naproxen 26d3487s-3019-0l60-plj9-1h5p8689z5g3 09/24/2014 09/24/2014 Oumar Gramajo MD Refill- Naproxen [id number] 09/24/2014 09/24/2014 Oumar Gramajo MD Refill- Naproxen [id number] 09/24/2014 09/24/2014 Oumar Gramajo MD Refill- Naproxen [id number] 09/24/2014 09/24/2014 Oumar Gramajo MD Refill- Naproxen [id number] 09/24/2014 09/24/2014 Oumar Gramajo MD Refill- Naproxen [id number] 09/24/2014 09/24/2014 Oumar Gramajo MD Refill- Naproxen [id number] 09/24/2014 09/24/2014 Oumar Gramajo MD Refill- Naproxen [id number] 09/24/2014 09/24/2014 Oumar Gramajo MD Refill- Naproxen [id number] 09/24/2014 09/24/2014 Oumar Gramajo MD Refill- Naproxen [id number] 09/24/2014 09/24/2014 Oumar Gramajo MD Refill- Naproxen [id number] 09/24/2014 09/24/2014 Oumar Gramajo MD Refill- Naproxen [id number] 09/24/2014 09/24/2014 Oumar Gramajo MD Refill- Naproxen [id number] 09/24/2014 09/24/2014 Oumar Gramajo MD Refill- Naproxen [id number] 09/24/2014 09/24/2014 Oumar Gramajo MD Refill- Naproxen [id number] 09/24/2014 09/24/2014 Oumar Gramajo MD Refill- Naproxen [id number] 09/24/2014 09/24/2014 Oumar Gramajo MD DEXA [id number] 10/15/2014 10/15/2014 Oumar Gramajo MD DEXA [id number] 10/15/2014 10/15/2014 Oumar Gramajo MD DEXA [id number] 10/15/2014 10/15/2014 Oumar Gramajo MD DEXA [id number] 10/15/2014 10/15/2014 Oumar Gramajo MD DEXA [id number] 10/15/2014 10/15/2014 Oumar Gramajo MD DEXA [id number] 10/15/2014 10/15/2014 Oumar Gramajo MD DEXA [id number] 10/15/2014 10/15/2014 Oumar Gramajo MD DEXA [id number] 10/15/2014 10/15/2014 Oumar Gramajo MD DEXA [id number] 10/15/2014 10/15/2014 Oumar Gramajo MD DEXA [id number] 10/15/2014 10/15/2014 Oumar Gramajo MD DEXA [id number] 10/15/2014 10/15/2014 Oumar Gramajo MD DEXA [id number] 10/15/2014 10/15/2014 Oumar Gramajo MD DEXA [id number] 10/15/2014 10/15/2014 Oumar Gramajo MD [facility] [id number] 10/15/2014 10/15/2014 Oumar Gramajo MD [facility] [id number] 10/15/2014 10/15/2014 Oumar Gramajo MD [facility] [id number] 10/15/2014 10/15/2014 Oumar Gramajo MD [facility] [id number] 10/15/2014 10/15/2014 Oumar Gramajo MD [facility] [id number] 10/15/2014 10/15/2014 Oumar Gramajo MD [facility] [id number] 10/15/2014 10/15/2014 Oumar Gramajo MD [facility] [id number] 10/15/2014 10/15/2014 Oumar Gramajo MD [facility] [id number] 10/15/2014 10/15/2014 Oumar Gramajo MD [facility] [id number] 10/15/2014 10/15/2014 Oumar Gramajo MD [facility] [id number] 10/15/2014 10/15/2014 Oumar Gramajo MD [facility] [id number] 10/15/2014 10/15/2014 Oumar Gramajo MD [facility] [id number] 10/15/2014 10/15/2014 Oumar Gramajo MD [facility] [id number] 10/15/2014 10/15/2014 Oumar Gramajo MD DEXA [id number] 10/15/2014 10/15/2014 Oumar Gramajo MD DEXA [id number] 10/15/2014 10/15/2014 Oumar Gramajo MD DEXA [id number] 10/15/2014 10/15/2014 Oumar Gramajo MD DEXA [id number] 10/15/2014 10/15/2014 Oumar Gramajo MD DEXA [id number] 10/15/2014 10/15/2014 Oumar Gramajo MD DEXA [id number] 10/15/2014 10/15/2014 Oumar Gramajo MD DEXA [id number] 10/15/2014 10/15/2014 Oumar Gramajo MD DEXA [id number] 10/15/2014 10/15/2014 Oumar Gramajo MD DEXA [id number] 10/15/2014 10/15/2014 Oumar Gramajo MD DEXA [id number] 10/15/2014 10/15/2014 Oumar Gramajo MD DEXA [id number] 10/15/2014 10/15/2014 Oumar Gramajo MD [facility] [id number] 10/15/2014 10/15/2014 Oumar Gramajo MD [facility] [id number] 10/15/2014 10/15/2014 Oumar Gramajo MD [facility] [id number] 10/15/2014 10/15/2014 Oumar Gramajo MD [facility] [id number] 10/15/2014 10/15/2014 Oumar Gramajo MD [facility] [id number] 10/15/2014 10/15/2014 Oumar Gramajo MD [facility] [id number] 10/15/2014 10/15/2014 Oumar Gramajo MD [facility] [id number] 10/15/2014 10/15/2014 Oumar Gramajo MD [facility] [id number] 10/15/2014 10/15/2014 Oumar Gramajo MD [facility] [id number] 10/15/2014 10/15/2014 Oumar Gramajo MD [facility] [id number] 10/15/2014 10/15/2014 Oumar Gramajo MD Follow up--End of Nov [id number] 11/22/2014 11/22/2014 Oumar Gramajo MD Follow up--End of Nov [id number] 11/22/2014 11/22/2014 Oumar Gramajo MD Follow up--End of Nov [id number] 11/22/2014 11/22/2014 Oumar Gramajo MD Follow up--End of Nov [id number] 11/22/2014 11/22/2014 Oumar Gramajo MD Follow up--End of Nov [id number] 11/22/2014 11/22/2014 Oumar Gramajo MD Follow up--End of Nov [id number] 11/22/2014 11/22/2014 Oumar Gramajo MD Follow up--End of Nov [id number] 11/22/2014 11/22/2014 Oumar Gramajo MD Follow up--End of Nov [id number] 11/22/2014 11/22/2014 Oumar Gramajo MD Follow up--End of Nov [id number] 11/22/2014 11/22/2014 Oumar Gramajo MD Follow up--End of Nov [id number] 11/22/2014 11/22/2014 Oumar Gramajo MD Follow up--End of Nov [id number] 11/22/2014 11/22/2014 Oumar Gramajo MD Follow up--End of Adam [id number] 11/22/2014 11/22/2014 Oumar Gramajo MD Follow up--End of Adam [id number] 11/22/2014 11/22/2014 Oumar Gramajo MD Follow up--End of Adam [id number] 11/22/2014 11/22/2014 Oumar Gramajo MD Follow up--End of Adam [id number]-3p6q-nl80-45oqz7co7082 11/22/2014 11/22/2014 Oumar Gramajo MD Follow up--End of Adam 778g94j1-107g-7zwz-5321-m1983896i34a 11/22/2014 11/22/2014 Oumar Gramajo MD Follow up--End of Nov 00262he7-43x7-65z3-n3sf-8j2v2qin0u22 11/22/2014 11/22/2014 Oumar Gramajo MD Follow up--End of Adam 13lui76s-76v1-9kbv-18xx-lli7ql91w024 11/22/2014 11/22/2014 Oumar Gramajo MD Follow up--End of Adam 7y8ny765-2k6r-22k3-67ra-dlg35648p7o7 11/22/2014 11/22/2014 Oumar Gramajo MD Follow up--End of Nov 19u4ulz7-qx00-5jec-a80i-48884ijl0ine 11/22/2014 11/22/2014 Oumar Gramajo MD Follow up--End of Nov 132r053x-67m8-439d-4692-1437ry025m9q 11/22/2014 11/22/2014 Oumar Gramajo MD Follow up--End of Nov [id number]-[id number] 11/22/2014 11/22/2014 Oumar Gramajo MD Add on 01/06 ei9h20t5-85pp-7s69-n3l0-4p4z1419890e 01/05/2015 01/05/2015 Oumar Gramajo MD Add on 01/06 9m017b63-4wa6-4i85-ye59-6ug12a1h8301 01/05/2015 01/05/2015 Oumar Gramajo MD Add on 01/06 1765e52k-52x9-028w-qcr9-p3913771w253 01/05/2015 01/05/2015 Oumar Gramajo MD Add on 01/06 q39521w1-hvh4-8728-x75l-8922i032rk9d 01/05/2015 01/05/2015 Oumar Gramajo MD Add on 01/06 5l01o249-o1x0-5nm8-e4qt-788k83m7b018 01/05/2015 01/05/2015 Oumar Gramajo MD Add on 01/06 0n04tp30-aj97-07q2-kh58-3871w1b58h55 01/05/2015 01/05/2015 Oumar Gramajo MD Add on 01/06 ofi44dgx-3w8f-4200-67t1-iz065tbundct 01/05/2015 01/05/2015 Oumar Gramajo MD Add on 01/06 16219jv4-z945-67v0-7tv8-lfi2n484g83g 01/05/2015 01/05/2015 Oumar Gramajo MD Add on 01/06 o3ez4xsk-2145-4ajs-84jk-h1v2z159jr51 01/05/2015 01/05/2015 Oumar Gramajo MD Add on 01/06 0w9l8o0w-dr92-5026-yve8-3p002zv05838 01/05/2015 01/05/2015 Oumar Gramajo MD Add on 01/06 57ctf7yj-1914-90ow-7sxb-688lhfzm3sm2 01/05/2015 01/05/2015 Oumar Gramajo MD Add on 01/06 ah1m09d7-9285-5538-e2k9-3387iv0pm18h 01/05/2015 01/05/2015 Oumar Gramajo MD Add on 01/06 q00i3077-2065-82s0-08c8-n401653kard6 01/05/2015 01/05/2015 Oumar Gramajo MD Add on 01/06 a98h0313-p706-6233-c1oc-679te7zofi8n 01/05/2015 01/05/2015 Oumar Gramajo MD Add on 01/06 4y3e0y82-q705-5725-t540-x31p5b71q9h9 01/05/2015 01/05/2015 Oumar Gramajo MD Add on 01/06 24216w6b-c7hs-3357-0654-yc5f5lw596i8 01/05/2015 01/05/2015 Oumar Gramajo MD Add on 01/06 363h07l7-7f9k-394u-n7w8-x24c3p19q862 01/05/2015 01/05/2015 Oumar Gramajo MD Add on 01/06 27i32agt-g8t8-0q08-6ij7-3837o1fd99r0 01/05/2015 01/05/2015 Oumar Gramajo MD Add on 01/06 2c960hg9-i946-6y14-o12i-899r7g91j091 01/05/2015 01/05/2015 Oumar Gramajo MD Add on 01/06 2f588740-qt7k-451y-s26k-58k52y3527rl 01/05/2015 01/05/2015 Oumar Gramajo MD Add on 01/06 jc600vwm-972l-913i-575h-bv9y47887572 01/05/2015 01/05/2015 Oumar Gramajo MD f/u 3188k2w7-r3c3-33w2-05d3-pc5z83u78h14 01/06/2015 01/06/2015 Oumar Gramajo MD f/u lw32d61o-kc5h-11s2-0749-51ul6rz5p51a 01/06/2015 01/06/2015 Oumar Gramajo MD f/u 271gyk24-6v6o-2h26-1ic5-hn6k62b2hy8s 01/06/2015 01/06/2015 Oumar Gramajo MD f/u 7w553989-34t7-4658-y918-8161n3987n86 01/06/2015 01/06/2015 Oumar Gramajo MD f/u 9b3041s3-kh5n-0927-usv3-271or6z31960 01/06/2015 01/06/2015 Oumar Gramajo MD f/u 300tgaf5-4h7w-0912-47uk-306626xr1rh6 01/06/2015 01/06/2015 Oumar Gramajo MD f/u 9800y905-1dsr-3758-p978-631by5235i76 01/06/2015 01/06/2015 Oumar Gramajo MD f/u g485k5m8-cwc4-2236-16n7-79phlneg8i76 01/06/2015 01/06/2015 Oumar Gramajo MD f/u 1u4967z8-y38k-3693-927h-795e1wlkil5t 01/06/2015 01/06/2015 Oumar Gramajo MD f/u 1329zu91-s9z6-7224-t219-3j81fl9908e8 01/06/2015 01/06/2015 Oumar Gramajo MD f/u n9rf89x5-pfs9-43w2-3k3y-4m34ed1e3x1y 01/06/2015 01/06/2015 Oumar Gramajo MD f/u 2hrb6g12-53k1-59j2-6302-84sc9wqr61fy 01/06/2015 01/06/2015 Oumar Gramajo MD f/u [id number]-s053-9mb0752vd1xx 01/06/2015 01/06/2015 Oumar Gramajo MD f/u 06o35j71-81g5-184b-vy57-2y8p962il9mk 01/06/2015 01/06/2015 Oumar Gramajo MD f/u 62kdw277-av00-45kl-k425-rj7709645h75 01/06/2015 01/06/2015 Oumar rGamajo MD f/u 5k9f0817-62bc-6f3o-u3th-26bl2gwei9wb 01/06/2015 01/06/2015 Oumar Gramajo MD f/u l68e687r-3344-8q14-7q0r-567h5ry5r5dh 01/06/2015 01/06/2015 Oumar Gramajo MD f/u 4nxg70rm-br14-2r72-rili-9s566u247b02 01/06/2015 01/06/2015 Oumar Gramajo MD f/u tiik4305-6t73-141l-fm9c-62ve76wr10ac 01/06/2015 01/06/2015 Oumar Gramajo MD f/u 4wtfj7tg-320k-6671-egsi-g0e69nw4e3d9 01/06/2015 01/06/2015 Oumar Gramajo MD DEXA 6kzu4nu8-l3c9-2572-388o-2vj90nq853oo 01/06/2015 01/06/2015 Oumar Gramajo MD DEXA un3wp3b1-s0g0-34d5-a500-9093t24466d5 01/06/2015 01/06/2015 Oumar Gramajo MD DEXA 46tr13qe-qm52-3u1k-18nz-f29ks73842d4 01/06/2015 01/06/2015 Oumar Gramajo MD DEXA 312733et-59y8-0743-ab95-j77s0n6zgc6p 01/06/2015 01/06/2015 Oumar Gramajo MD DEXA 3w67j24u-4h34-8phu-yf4i-29t91q1im96n 01/06/2015 01/06/2015 Oumar Gramajo MD DEXA q54609gt-yn22-5h8v-8d4v-12085sd777x2 01/06/2015 01/06/2015 Oumar Gramajo MD DEXA 167pi10z-9445-6d8t-m31e-q467013rs0l4 01/06/2015 01/06/2015 Oumar Gramajo MD DEXA 3p2t9932-bf25-760c-dx19-m1m222591i8z 01/06/2015 01/06/2015 Oumar Gramajo MD DEXA c83mnyf7-9011-53u8-v280-b981qo566697 01/06/2015 01/06/2015 Oumar Gramajo MD DEXA cs271zk7-2q0d-6el8-x0e4-71ds4959x6kz 01/06/2015 01/06/2015 Oumar Gramajo MD DEXA 4d2d1171-led1-490w-9542-w8160a91n5qk 01/06/2015 01/06/2015 Oumar Gramajo MD DEXA a21p776x-cp6t-14sa-xk12-9q3zdj44g23s 01/06/2015 01/06/2015 Oumar Gramajo MD DEXA 3966k228-339d-62yl-3v2z-pmr67378l2ur 01/06/2015 01/06/2015 Oumar Gramajo MD DEXA 2m1ph1e2-9s94-64fu-n6k8-5h77o31594z5 01/06/2015 01/06/2015 Oumar Gramajo MD DEXA poe04246-n766-514u-pn01-57u5el490225 01/06/2015 01/06/2015 Oumar Gramajo MD DEXA 2294551g-0y3x-2173-z79t-829zj9293a84 01/06/2015 01/06/2015 Oumar Gramajo MD DEXA d77t3s4o-kff2-840m-8j11-13cqc17w031z 01/06/2015 01/06/2015 Oumar Gramajo MD DEXA 42j16p81-w578-4h28-wzsg-73rxi7fypll0 01/06/2015 01/06/2015 Oumar Gramajo MD DEXA edl12el5-4r2c-6399-4761-8ys24t42sq04 01/06/2015 01/06/2015 Oumar Gramajo MD DEXA f08286c8-3w34-5844-8670-f815136o294f 01/06/2015 01/06/2015 Oumar Gramajo MD DEXA 7i26b79i-972z-18o3-2zs1-4o6w63g107w6 01/06/2015 01/06/2015 Oumar Gramajo MD Records Request [id number] 01/06/2015 01/06/2015 Oumar Gramajo MD Records Request [id number] 01/06/2015 01/06/2015 Oumar Gramajo MD Records Request [id number] 01/06/2015 01/06/2015 Oumar Gramajo MD Records Request [id number] 01/06/2015 01/06/2015 Oumar Gramajo MD Records Request [id number] 01/06/2015 01/06/2015 Oumar Gramajo MD Records Request [id number] 01/06/2015 01/06/2015 Oumar Gramajo MD Records Request [id number] 01/06/2015 01/06/2015 Oumar Gramajo MD Records Request [id number] 01/06/2015 01/06/2015 Oumar Gramajo MD Records Request [id number] 01/06/2015 01/06/2015 Oumar Gramajo MD Records Request [id number] 01/06/2015 01/06/2015 Oumar Gramajo MD Records Request [id number] 01/06/2015 01/06/2015 Oumar Gramajo MD Records Request [id number] 01/06/2015 01/06/2015 Oumar Gramajo MD Records Request [id number] 01/06/2015 01/06/2015 Oumar Gramajo MD Records Request [id number] 01/06/2015 01/06/2015 Oumar Gramajo MD Records Request [id number] 01/06/2015 01/06/2015 Oumar Gramajo MD Records Request [id number] 01/06/2015 01/06/2015 Oumar Gramajo MD Records Request [id number] 01/06/2015 01/06/2015 Oumar Gramajo MD Records Request [id number] 01/06/2015 01/06/2015 Oumar Gramajo MD Records Request [id number] 01/06/2015 01/06/2015 Oumar Gramajo MD Records Request [id number] 01/06/2015 01/06/2015 Oumar Gramajo MD Records Request [id number] 01/06/2015 01/06/2015 Oumar Gramajo MD RX Dispense Issue [id number]-x78g-0993g26313cm 01/07/2015 01/07/2015 Oumar Gramajo MD RX Dispense Issue [id number] 01/07/2015 01/07/2015 Oumar Gramajo MD RX Dispense Issue [id number] 01/07/2015 01/07/2015 Oumar Gramajo MD RX Dispense Issue [id number] 01/07/2015 01/07/2015 Oumar Gramajo MD RX Dispense Issue [id number]-054l-16d3-13as5g8q3jpu 01/07/2015 01/07/2015 Oumar Gramajo MD RX Dispense Issue [id number]-p651126lc6c2 01/07/2015 01/07/2015 Oumar Gramajo MD RX Dispense Issue [id number] 01/07/2015 01/07/2015 Oumar Gramajo MD RX Dispense Issue [id number]-929eth4j239e 01/07/2015 01/07/2015 Oumar Gramajo MD RX Dispense Issue [id number]-171ene837q3j 01/07/2015 01/07/2015 Oumar Gramajo MD RX Dispense Issue [id number]-x3817x78t4x3 01/07/2015 01/07/2015 Oumar Gramajo MD RX Dispense Issue [id number]-[id number]-yo43p7f7hr8k 01/07/2015 01/07/2015 Oumar Gramajo MD RX Dispense Issue [id number] 01/07/2015 01/07/2015 Oumar Gramajo MD RX Dispense Issue [id number]-e13l-l6isp23a8q08 01/07/2015 01/07/2015 Oumar Gramajo MD RX Dispense Issue [id number] 01/07/2015 01/07/2015 Oumar Gramajo MD RX Dispense Issue [id number] 01/07/2015 01/07/2015 Oumar Gramajo MD RX Dispense Issue [id number] 01/07/2015 01/07/2015 Oumar Gramajo MD RX Dispense Issue [id number]-pc6o-r3z27rw040r0 01/07/2015 01/07/2015 Oumar Gramajo MD RX Dispense Issue [id number] 01/07/2015 01/07/2015 Oumar Gramajo MD RX Dispense Issue [id number]-02w1-v2f2-33r2vl2bb72g 01/07/2015 01/07/2015 Oumar Gramajo MD RX Dispense Issue [id number] 01/07/2015 01/07/2015 Oumar Gramajo MD RX Dispense Issue [id number] 01/07/2015 01/07/2015 Oumar Gramajo MD Pain Mgmt 124t18x3-4n89-0773-r254-7ksi283z45k4 03/08/2015 03/08/2015 Oumar Gramajo MD Pain Mgmt 518yb2j7-m19v-62v0-7320-e64qpdx3lda1 03/08/2015 03/08/2015 Oumar Gramajo MD Pain Mgmt r85n2495-49hu-6b1e-5rvy-8nq2k2a08851 03/08/2015 03/08/2015 Oumar Gramajo MD Pain Mgmt 2i481m4n-08bl-3418-l162-y3m183j06782 03/08/2015 03/08/2015 Oumar Gramajo MD Pain Mgmt 2os020p9-yak1-7833-z6s8-f4sn2x6h8jzo 03/08/2015 03/08/2015 Oumar Gramajo MD Pain Mgmt qt94v540-3945-7f02-20ml-j1s8441098gp 03/08/2015 03/08/2015 Oumar Gramajo MD Pain Mgmt 2y5mz519-x297-5355-8hi6-0k2dnv578398 03/08/2015 03/08/2015 Oumar Gramajo MD Pain Mgmt 29936dh9-gz39-332k-7q90-7592sxz91732 03/08/2015 03/08/2015 Oumar Gramajo MD Pain Mgmt [id number]-167o3u96z756 03/08/2015 03/08/2015 Oumar Gramajo MD Pain Mgmt 6ya44i01-0737-7c1j-r260-07av0s8q0x58 03/08/2015 03/08/2015 Oumar Gramajo MD Pain Mgmt s99h20b5-48sk-7l98-6wp5-65fh273td730 03/08/2015 03/08/2015 Oumar Gramajo MD Pain Mgmt qno25230-489m-229k-39pl-l1865x783809 03/08/2015 03/08/2015 Oumar Gramajo MD Pain Mgmt u16p3ud0-4728-050v-ys56-20j5295p1t42 03/08/2015 03/08/2015 Oumar Gramajo MD Pain Mgmt 24i28c63-1a4x-3z58-2013-646358t37wy6 03/08/2015 03/08/2015 Oumar Gramajo MD Pain Mgmt t87561z4-16e0-3sc3-9j2y-10fap3t835qa 03/08/2015 03/08/2015 Oumar Gramajo MD Pain Mgmt 6514699k-6691-411m-b449-s6i1w174r893 03/08/2015 03/08/2015 Oumar Gramajo MD Pain Mgmt 7srz0j9u-o392-6310-q011-o0962949571y 03/08/2015 03/08/2015 Oumar Gramajo MD Pain Mgmt 08xn5drz-mk1s-52om-5h62-0027wz4o44y1 03/08/2015 03/08/2015 Oumar Gramajo MD Pain Mgmt 9l3skuwt-rf36-58h3-tky2-357552fhi536 03/08/2015 03/08/2015 Oumar Gramajo MD Refill [id number]-u8i1-2l1o8250557r 05/11/2015 05/11/2015 Oumar Gramajo MD Refill 1utd8nu5-nyfb-3t03-ra92-o5j79024w3dd 05/11/2015 05/11/2015 Oumar Gramajo MD Refill 854a14s2-ym15-296k-isiw-33j6855031m5 05/11/2015 05/11/2015 Oumar Gramajo MD Refill [id number]-10g5-5761-o9p3-c73p25q6e2b5 05/11/2015 05/11/2015 Oumar Gramajo MD Refill 945fo301-v279-22og-c959-3787v9q3ld37 05/11/2015 05/11/2015 Oumar Gramajo MD Refill 6p82ww91-u4mo-62d3-d90z-ln7o4w9763qg 05/11/2015 05/11/2015 Oumar Gramajo MD Refill 794ix2r3-8629-07lc-3i9b-h2308g124136 05/11/2015 05/11/2015 Oumar Gramajo MD Refill 930ybomm-8y53-0rin2v83-7fnr-o0at-w8dv08a78521 05/11/2015 05/11/2015 Oumar Gramajo MD Refill w1r534x7-jh84-5644-196g-31u94f470iy5 05/11/2015 05/11/2015 Oumar Gramajo MD Refill t528xp05-i6ng-636p-w12u-r5i1276do0ng 05/11/2015 05/11/2015 Oumar Gramajo MD Refill iq4v14ho-4be6-1j55-1y32-9jg676y0vfsg 05/11/2015 05/11/2015 Oumar Gramajo MD Refill i00fqfu3-8907-6s41-5132-34d9h1523p18 05/11/2015 05/11/2015 Oumar Gramajo MD Refill 3445mru1-d447-08p5-6q6y-4527url76045 05/11/2015 05/11/2015 Oumar Gramajo MD Refill [id number]-291z-[id number]-xe945l86w2b6 05/11/2015 05/11/2015 Oumar Gramajo MD Refill 106hj23o-a2ei-3n19-m003-c73uh9l87j86 05/11/2015 05/11/2015 Oumar Gramajo MD Refill p2a6q0zi-5p6h-95a0-3d59-tn091wal88p5 05/11/2015 05/11/2015 Oumar Gramajo MD Refill [id number]-icq0i512997u 05/11/2015 05/11/2015 Oumar Gramajo MD Refill 32558615-5p04-21s2-4cuf-sqjq7f37bxxw 05/11/2015 05/11/2015 Oumar Gramajo MD Refill [id number] 05/11/2015 05/11/2015 Oumar Gramajo MD RX Request-- Tramadol [id number]-8sk4-dass-99vi6b42l652 05/17/2015 05/17/2015 Oumar Gramajo MD RX Request-- Tramadol 6116r06s-m390-6h44-r465-57h498m79679 05/17/2015 05/17/2015 Oumar Gramajo MD RX Request-- Tramadol 6086jg2x-2a05-0ly1-726x-cg32m41155y9 05/17/2015 05/17/2015 Oumar Gramajo MD RX Request-- Tramadol 3s451d32-ur61-6700-x7nf-y2z6lfdb1uy3 05/17/2015 05/17/2015 Oumar Gramajo MD RX Request-- Tramadol [id number]-5gb7-giji-[id number] 05/17/2015 05/17/2015 Oumar Gramajo MD RX Request-- Tramadol [id number]-lc6s-7149-4ylk-s2nc7s415v39 05/17/2015 05/17/2015 Oumar Gramajo MD RX Request-- Tramadol [id number]-b572-g3765813plo3 05/17/2015 05/17/2015 Oumar Gramajo MD RX Request-- Tramadol [id number]-858i-x632-rw547689c89l 05/17/2015 05/17/2015 Oumar Gramajo MD RX Request-- Tramadol 6d80l6aa-52gd-11hu-q08j-kqp483f1p910 05/17/2015 05/17/2015 Oumar Gramajo MD RX Request-- Tramadol kaw4g77m-7802-9646-w31t-18qw3w992mdp 05/17/2015 05/17/2015 Oumar Gramajo MD RX Request-- Tramadol gi3s771i-[id number] 05/17/2015 05/17/2015 Oumar Gramajo MD RX Request-- Tramadol [id number]-z71s-g18je199fno3 05/17/2015 05/17/2015 Oumar Gramajo MD RX Request-- Tramadol 322026xc-359y-1q27-645y-533t3r0447w2 05/17/2015 05/17/2015 Oumar Gramajo MD RX Request-- Tramadol n501wjex-6z37-49xw-a4by-5xz5wl2ia006 05/17/2015 05/17/2015 Oumar Gramajo MD RX Request-- Tramadol 74u67s11-1509-267c-d40u-f7py76ld43nt 05/17/2015 05/17/2015 Oumar Gramajo MD RX Request-- Tramadol 6264c965-2g8k-496o-4t12-f983n74998b8 05/17/2015 05/17/2015 Oumar Gramajo MD RX Request-- Tramadol u67lz7r5-i2rr-7680-05s6-31jqyx70h86a 05/17/2015 05/17/2015 Oumar Gramajo MD RX Request-- Tramadol j38b3wr2-c85z-20gs-36vr-473i5j137174 05/17/2015 05/17/2015 Oumar Gramajo MD RX Request-- Tramadol 99191y98-5fy8-643u-kegt-djh2672c79iz 05/17/2015 05/17/2015 Oumar Gramajo MD f/u c7xmex0j-e66i-8362-ho3m-4w31l822py50 06/14/2015 06/14/2015 Oumar Gramajo MD f/u 91a1o574-5282-5468-94r1-949t8z694hc0 06/14/2015 06/14/2015 Oumar Gramajo MD f/u 5yl57i30-58z5-6778-hmf2-huj8377i478m 06/14/2015 06/14/2015 Oumar Gramajo MD f/u 56b2g155-4m74-3r13-200t-00e26la207w0 06/14/2015 06/14/2015 Oumar Gramajo MD f/u 5t1bb2x5-4983-3549-e817-pz73b465762x 06/14/2015 06/14/2015 Oumar Gramajo MD f/u 55w9073t-e80i-8043-01i1-77k0250774h6 06/14/2015 06/14/2015 Oumar Gramajo MD f/u wmh5z83j-21s6-752o-rfno-48p842702a0u 06/14/2015 06/14/2015 Oumar Gramajo MD f/u 16p25i30-wx46-41ea-857e-n9q8d96u2mz5 06/14/2015 06/14/2015 Oumar Gramajo MD f/u fqko9paw-8282-86d0-312z-vv4uqy950317 06/14/2015 06/14/2015 Oumar Gramajo MD f/u 08r20m13-9m46-293k-0872-2x015z2e5r2p 06/14/2015 06/14/2015 Oumar Gramajo MD f/u 267s30mh-1b49-8s4l-ra64-8u421m4513j9 06/14/2015 06/14/2015 Oumar Gramajo MD f/u 4v1x8718-0vh1-5wx0-m6qq-4vp5vm2yv6r3 06/14/2015 06/14/2015 Oumar Gramajo MD f/u 9x595174-7490-9pq8-70pa-1st87063156s 06/14/2015 06/14/2015 Oumar Gramajo MD f/u q7p16581-te5h-7590-4869-d8z6yc1696b7 06/14/2015 06/14/2015 Oumar Gramajo MD f/u cg19i1or-8713-1x59-50cw-9d2b9d2ncp9n 06/14/2015 06/14/2015 Oumar Gramajo MD f/u 9g8h3580-v022-1iq3-34x6-994j51i3l9n2 06/14/2015 06/14/2015 Oumar Gramajo MD f/u [id number]-5260-71kr-y41m-0t8w429dpu76 06/14/2015 06/14/2015 Oumar Gramajo MD f/u [id number]-5a42-0i3z-d171-46u8zo163nck 06/14/2015 06/14/2015 Oumar Gramajo MD f/u l9m14q8l-lwun-7404-4727-296o7m06l0u1 06/14/2015 06/14/2015 Oumar Gramajo MD DEXA [id number]-w43z-[id number] 07/27/2015 07/27/2015 Oumar Gramajo MD DEXA [id number]-[id number] 07/27/2015 07/27/2015 Oumar Gramajo MD DEXA [id number]-6819-t5m4m0n11243 07/27/2015 07/27/2015 Oumar Gramajo MD DEXA 27k1jm75-0d6a-2h0u-1628-7v476x6j703g 07/27/2015 07/27/2015 Oumar Gramajo MD DEXA 48u3m26h-th4z-2456-s54o-i94v83w011m4 07/27/2015 07/27/2015 Oumar Gramajo MD DEXA [id number]-[id number] 07/27/2015 07/27/2015 Oumar Gramajo MD DEXA [id number]-m587-675ww32m3059 07/27/2015 07/27/2015 Oumar Gramajo MD DEXA es12e16u-[id number]-c50v-5s9ee10r0r2d 07/27/2015 07/27/2015 Oumar Gramajo MD DEXA zff00rv0-d8nb-2a12-2271-5s675t28d2m7 07/27/2015 07/27/2015 Oumar Gramajo MD DEXA [id number] 07/27/2015 07/27/2015 Oumar Gramajo MD DEXA [id number]-[id number] 07/27/2015 07/27/2015 Oumar Gramajo MD DEXA 73108m4y-[id number]-[id number] 07/27/2015 07/27/2015 Oumar Gramajo MD DEXA 456vj43p-99z8-00c6-3290-w42mja0fo431 07/27/2015 07/27/2015 Oumar Gramajo MD DEXA bwi49fww-[id number] 07/27/2015 07/27/2015 Oumar Gramajo MD DEXA 4716mh5z-23zc-0rc3-a323-ia8h44m5gqlq 07/27/2015 07/27/2015 Oumar Gramajo MD DEXA -[id number] 07/27/2015 07/27/2015 Oumar Gramajo MD DEXA 05d4mbdn-ih6l-221g-49cq-2w49f4bcy77b 07/27/2015 07/27/2015 Oumar Gramajo MD DEXA 7630y1h3-ahvs-3ji6-459n-c5t7k6j041fg 07/27/2015 07/27/2015 Oumar Gramajo MD DEXA l0yh113o-095a-9b4b-vj92-2321g0zo56rs 07/27/2015 07/27/2015 Oumar Gramajo MD f/u [id number]-740n-369c-6582ho1642s4 10/04/2015 10/04/2015 Oumar Gramajo MD f/u 976cn61w-ij8p-71e1-es05-c804c99r7476 10/04/2015 10/04/2015 Oumar Gramajo MD f/u 986679gq-p117-22c2-6uq1-492rv316220u 10/04/2015 10/04/2015 Oumar Gramajo MD f/u 5931546a-2325-423c-l756-ld4w87913rd1 10/04/2015 10/04/2015 Oumar Gramajo MD f/u e3j711zg-4y9v-423c-g306-56759mwz392p 10/04/2015 10/04/2015 Oumar Gramajo MD f/u 579j46h5-5b2b-4725-zy38-rc8880au8854 10/04/2015 10/04/2015 MD geovanna Huang/u dh547kn2-8pyt-61n7-l37o-98s75x5r1d0v 10/04/2015 10/04/2015 Oumar Gramajo MD f/u 51uf0zzf-1gws-09lr-l0w0-4x3dqw191i54 10/04/2015 10/04/2015 Oumar Gramajo MD f/u 045r1tx8-q492-73jb-0ax9-9u70fmx13i84 10/04/2015 10/04/2015 Oumar Gramajo MD f/u 9g1ju6v6-4540-9882-c1v4-i75ga738042g 10/04/2015 10/04/2015 Oumar Gramajo MD f/u u119n4b4-n1x8-6e63-zega-u3z2x48l8q79 10/04/2015 10/04/2015 Oumar Gramajo MD f/u 309z8095-23e0-93z9-5016-988o23eut437 10/04/2015 10/04/2015 Oumar Gramajo MD f/u i6c276z9-1717-1007-x5m3-q2k1fzg79h0x 10/04/2015 10/04/2015 Oumar Gramajo MD f/u 937079x5-08l3-4c47-r96w-6j4d4435l9ar 10/04/2015 10/04/2015 Oumar Gramajo MD f/u t18yvu57-9o8d-96l6-7715-9509k6y6jf2t 10/04/2015 10/04/2015 Oumar Gramajo MD f/u 4t1yw41u-6fp7-8e51-h9t6-9668u196200i 10/04/2015 10/04/2015 Oumar Gramajo MD f/u r61cb631-ywu1-857x-34wd-q9v726d86385 10/04/2015 10/04/2015 Oumar Gramajo MD labs [id number]-dgy9-2c53-q164-t2771wg980tz 10/04/2015 10/04/2015 Oumar Gramajo MD labs 73p2b64d-e4ks-2awk-0339-1mym1b78s615 10/04/2015 10/04/2015 Oumar Gramajo MD labs 432jn96a-[id number]-dmuu-99u286s99ljf 10/04/2015 10/04/2015 Oumar Gramajo MD labs [id number]-[id number] 10/04/2015 10/04/2015 Oumar Gramajo MD labs [id number]-l242-3379-6pf9-3b0754323o4d 10/04/2015 10/04/2015 Oumar Gramajo MD labs p1987j5g-16ug-73f0-335o-11x9006v9i15 10/04/2015 10/04/2015 Oumar Gramajo MD labs 364jgeh2-ow75-9v62-j123-ta08ak9515c8 10/04/2015 10/04/2015 Oumar Gramajo MD labs [id number]-j8xa-zj27623r8826 10/04/2015 10/04/2015 Oumar Gramajo MD labs a3b262m2-79b8-95c7-i5b7-cms4jb9338z6 10/04/2015 10/04/2015 Oumar Gramajo MD labs [id number]-7556-vla2r4131n1p 10/04/2015 10/04/2015 Oumar Gramajo MD labs n6a5oen7-y9ev-9ps6-642v-6762s383a1l7 10/04/2015 10/04/2015 Oumar Gramajo MD labs [id number]-[id number] 10/04/2015 10/04/2015 Oumar Gramajo MD labs [id number]-r7g7-me9u7dc142m6 10/04/2015 10/04/2015 Oumar Gramajo MD labs [id number]-u464-9mxwh3282m6x 10/04/2015 10/04/2015 Oumar Gramajo MD labs [id number]-dpg1-9536-8uit-x41v6d09besg 10/04/2015 10/04/2015 Oumar Gramajo MD labs [id number]-9w55-6043-wxkb-e706w108127z 10/04/2015 10/04/2015 Oumar Gramajo MD labs [id number]-27t9-9w9q-554m-0u00af3hx9n2 10/04/2015 10/04/2015 Oumar Gramajo MD labs [id number]-ty00-df92271lye4b 10/04/2015 10/04/2015 Oumar Gramajo MD Refill- Ultram qx95f8u2-f100-8ao7-9612-d94i4pop93t9 12/15/2015 12/15/2015 Oumar Gramajo MD Refill- Ultram 5u453ofi-i5es-40e0-yi52-3l83n3hf3fmi 12/15/2015 12/15/2015 Oumar Gramajo MD Refill- Ultram 399oct4f-b13z-4367-6402-25wk0l59w096 12/15/2015 12/15/2015 Oumar Gramajo MD Refill- Ultram 9011ucpa-l633-9nm0s389-2ep6-74nd-aw697a725i7s 12/15/2015 12/15/2015 Oumar Gramajo MD Refill- Ultram [id number]-f881-y2586j1og5o4 12/15/2015 12/15/2015 Oumar Gramajo MD Refill- Ultram [id number]-b040-51h3-a071-247ec233r250 12/15/2015 12/15/2015 Oumar Gramajo MD Refill- Ultram 2281y8z8-319p-444q-fg05-946ff81b3leh 12/15/2015 12/15/2015 Oumar Gramajo MD Refill- Ultram [id number]-6168-245s-9c3y480kc834 12/15/2015 12/15/2015 Oumar Gramajo MD Refill- Ultram g117kwe6-15ur-3a5s-lf94-w8i618g53563 12/15/2015 12/15/2015 Oumar Gramajo MD Refill- Ultram 63000bu2-42o5-2z74-f4ar-9o51vbw45y93 12/15/2015 12/15/2015 Oumar Gramajo MD Refill- Ultram 10v3263w-07n8-4g20-w8l0-128j136gvl16 12/15/2015 12/15/2015 Oumar Gramajo MD Refill- Ultram 90494w46-b4zl-0690-g1a6-051xt3640tw0 12/15/2015 12/15/2015 Oumar Gramajo MD Refill- Ultram ya53r1a2-a7m6-233j-2901-7qh798b86739 12/15/2015 12/15/2015 Oumar Gramajo MD Refill- Ultram [id number]-0cv4-4328-848s9770565g 12/15/2015 12/15/2015 Oumar Gramajo MD Refill- Ultram 10b96j94-n832-9a7x-8kr5-9f451p6244fe 12/15/2015 12/15/2015 Oumar Gramajo MD Refill- Ultram 3n52s6q5-n5v2-9716-5orp-989tpx06aumq 12/15/2015 12/15/2015 Oumar Gramajo MD 3 [facility] FU [id number]-a160-9bht1399e55n 01/05/2016 01/05/2016 Oumar Gramajo MD 3 [facility] FU [id number]-wq31-w7n4sdi4i103 01/05/2016 01/05/2016 Oumar Gramajo MD 3 [facility] FU 192t1e5o-m607-936s-76n9-855of0u5lm74 01/05/2016 01/05/2016 Oumar Gramajo MD 3 [facility] FU [id number]-2lr8-[id number] 01/05/2016 01/05/2016 Oumar Gramajo MD 3 [facility] FU [id number]-lzf1-314ri62ej3a8 01/05/2016 01/05/2016 Oumar Gramajo MD 3 [facility] FU [id number]-a9r1-5q77-k01x-641624t6p725 01/05/2016 01/05/2016 Oumar Gramajo MD 3 [facility] FU e2l37pcc-6286-56e8-q2b9-6467p6g6o5t4 01/05/2016 01/05/2016 Oumar Gramajo MD 3 [facility] FU -x97t-236h-l300-64xt3oto9z8r 01/05/2016 01/05/2016 Oumar Gramajo MD 3 [facility] FU at6n5y0i-139l-4s36-wj9q-58sq09692ot1 01/05/2016 01/05/2016 Oumar Gramajo MD 3 [facility] FU x77ks59q-a68r-6nve-6429-g3mpc8io2h66 01/05/2016 01/05/2016 Oumar Gramajo MD 3 [facility] FU [id number]-[id number] 01/05/2016 01/05/2016 Oumar Gramajo MD 3 [facility] FU [id number]-pv5p-3289-71r4-8hj4762o6e2c 01/05/2016 01/05/2016 Oumar Gramajo MD 3 [facility] FU [id number]-qu13-t7x6g5rsx5ge 01/05/2016 01/05/2016 Oumar Gramajo MD 3 [facility] FU 006f8c4t-k1u5-096q-cz4y-4wiv8k582u02 01/05/2016 01/05/2016 Oumar Gramajo MD 3 [facility] FU sv92qdk7-d777-129z-0jft-01g9qk608u23 01/05/2016 01/05/2016 Oumar Gramajo MD tramadol [id number]-206q-2l97-i7s4-yb983b80k8zh 03/28/2016 03/28/2016 Oumar Gramajo MD tramadol [id number]-[id number] 03/28/2016 03/28/2016 Oumar Gramajo MD tramadol 306d318h-8p46-7406-r6s7-k7ynb8tx1p98 03/28/2016 03/28/2016 Oumar Gramajo MD tramadol [id number]-g434-hga684ii13j7 03/28/2016 03/28/2016 Oumar Gramajo MD tramadol [id number] 03/28/2016 03/28/2016 Oumar Gramajo MD tramadol [id number]-k1og-[id number] 03/28/2016 03/28/2016 Oumar Gramajo MD tramadol 168b3tqt-[id number] 03/28/2016 03/28/2016 Oumar Gramajo MD tramadol [id number]-[id number] 03/28/2016 03/28/2016 Oumar Gramajo MD tramadol [id number] 03/28/2016 03/28/2016 Oumar Gramajo MD tramadol [id number]-9q3q-lka1c2rbl5p4 03/28/2016 03/28/2016 Oumar Gramajo MD tramadol 91v1902g-t75w-4reo-2y26-m8745v28t346 03/28/2016 03/28/2016 Oumar Gramajo MD tramadol 59sr9m8l-z6lu-998m-170q-66037i1a1469 03/28/2016 03/28/2016 Oumar Gramajo MD tramadol 26rh49k0-045o-1g0t-5u68-6gy55a1j795o 03/28/2016 03/28/2016 Oumar Gramajo MD tramadol [id number]-5929-8tsg-42cssw0sz3s4 03/28/2016 03/28/2016 Oumar Gramajo MD [facility] [id number]-wsa6-iz56ve197pl0 03/29/2016 03/29/2016 Oumar Gramajo MD MRI [id number] 03/29/2016 03/29/2016 Oumar Gramajo MD MRI 300xe8et-05b2-7xnm-mgm4-71do2ip3j7j1 03/29/2016 03/29/2016 Oumar Gramajo MD MRI [id number] 03/29/2016 03/29/2016 Oumar Gramajo MD MRI [id number] 03/29/2016 03/29/2016 Oumar Gramajo MD MRI [id number] 03/29/2016 03/29/2016 Oumar Gramajo MD MRI [id number]-6d18rc46ugau 03/29/2016 03/29/2016 Oumar Gramajo MD MRI [id number]-6ev2-f948jyxre9i4 03/29/2016 03/29/2016 Oumar Gramajo MD MRI [id number] 03/29/2016 03/29/2016 Oumar Gramajo MD MRI [id number] 03/29/2016 03/29/2016 Oumar Gramajo MD MRI [id number] 03/29/2016 03/29/2016 Oumar Gramajo MD MRI [id number] 03/29/2016 03/29/2016 Oumar Gramajo MD [facility] [id number]-[id number] 03/29/2016 03/29/2016 Oumar Gramajo MD [facility]U [id number]-[id number] 04/18/2016 04/18/2016 Oumar Gramajo MD 3 [facility] FU 9dn802ou-2s2q-[id number] 04/18/2016 04/18/2016 Oumar Gramajo MD 3 [facility] FU [id number] 04/18/2016 04/18/2016 Oumar Gramajo MD 3 [facility] FU [id number]-4gqr962rk8eb 04/18/2016 04/18/2016 Oumar Gramajo MD 3 [facility] FU [id number] 04/18/2016 04/18/2016 Oumar Gramajo MD 3 [facility] FU [id number]-[id number] 04/18/2016 04/18/2016 Oumar Gramajo MD 3 [facility] FU [id number] 04/18/2016 04/18/2016 Oumar Gramajo MD 3 [facility] FU [id number]-v604-0315-i16u-s376elkxp855 04/18/2016 04/18/2016 Oumar Gramajo MD [facility]U [id number] 04/18/2016 04/18/2016 Oumar Gramajo MD [facility] FU [id number]-jzd4-2s8212c869s5 04/18/2016 04/18/2016 Oumar Gramajo MD 3 [facility] FU [id number]-i0o2-[id number] 04/18/2016 04/18/2016 Oumar Gramajo MD [facility]U [id number] 04/18/2016 04/18/2016 Oumar Gramajo MD [facility] rx [id number] 04/20/2016 04/20/2016 [place] [id number] 04/20/2016 04/20/2016 Oumar Gramajo MD [facility] rx [id number]-[id number] 04/20/2016 04/20/2016 Oumar Gramajo MD [facility] rx [id number] 04/20/2016 04/20/2016 Oumar Gramajo MD [facility] rx [id number] 04/20/2016 04/20/2016 [place] [id number]-701t-v0de-2945ab174tpo 04/20/2016 04/20/2016 [place] [id number]-[id number] 04/20/2016 04/20/2016 [place] [id number] 04/20/2016 04/20/2016 Oumar Gramajo MD [facility] rx [id number] 04/20/2016 04/20/2016 MD [place] [id number] 04/20/2016 04/20/2016 MD eduin [facility] rx [id number] 04/20/2016 04/20/2016 Oumar Gramajo MD [facility] rx [id number] 04/20/2016 04/20/2016 Oumar Gramajo MD Refill- Tramadol [id number]-s8k9s76kl07o 07/04/2016 07/04/2016 Oumar Gramajo MD Refill- Tramadol [id number]-345p-544r-fk1s-q6649navwsd4 07/04/2016 07/04/2016 Oumar Gramajo MD Refill- Tramadol [id number] 07/04/2016 07/04/2016 Oumar Gramajo MD Refill- Tramadol [id number]-9x95-654o-8b02-ly05218i4t1b 07/04/2016 07/04/2016 Oumar Gramajo MD Refill- Tramadol 97i180n7-jl4g-5hf9-c654-p4avr0yy6xkh 07/04/2016 07/04/2016 Oumar rGamajo MD Refill- Tramadol [id number]-[id number] 07/04/2016 07/04/2016 Oumar Gramajo MD Refill- Tramadol [id number]-78x4-59xs-1t88-xui02f394e4v 07/04/2016 07/04/2016 Oumar Gramajo MD Refill- Tramadol [id number] 07/04/2016 07/04/2016 Oumar Gramajo MD Refill- Tramadol [id number]-5js6-k461-8t860l494ue1 07/04/2016 07/04/2016 Oumar Gramajo MD Refill- Tramadol 51616v2m-[id number]-9w9o-s25320e118y8 07/05/2016 07/05/2016 Oumar Gramajo MD Refill- Tramadol l6tv67dr-6qpq-790q-3641-std3hvx295a8 07/05/2016 07/05/2016 Oumar Gramajo MD Refill- Tramadol [id number] 07/05/2016 07/05/2016 Oumar Graamjo MD Refill- Tramadol [id number] 07/05/2016 07/05/2016 Oumar Gramajo MD Refill- Tramadol 2232fv82-88lm-3oxh-d931-a3vkv73tv0u6 07/05/2016 07/05/2016 Oumar Gramajo MD Refill- Tramadol 78bd5d93-8829-733w-1506-14pj96f759x6 07/05/2016 07/05/2016 Oumar Gramajo MD Refill- Tramadol 2y79q65k-3qyd-036f-[id number] 07/05/2016 07/05/2016 Oumar Gramajo MD Refill- Tramadol y6j50o3m-[id number]-m101-w4yd79l92tqy 07/05/2016 07/05/2016 Oumar Gramajo MD NS APPT 07/18/16 [id number] 07/18/2016 07/18/2016 Oumar Gramajo MD NS APPT 07/18/16 [id number] 07/18/2016 07/18/2016 Oumar Gramajo MD NS APPT 07/18/16 120jm616-y0jk-2tmw-[id number] 07/18/2016 07/18/2016 Oumar Gramajo MD NS APPT 07/18/16 [id number]-[id number] 07/18/2016 07/18/2016 Oumar Gramajo MD NS APPT 07/18/16 [id number] 07/18/2016 07/18/2016 Oumar Gramajo MD NS APPT 07/18/16 [id number]-951d5lqr27v6 07/18/2016 07/18/2016 Oumar Gramajo MD NS APPT 07/18/16 [id number]-[id number] 07/18/2016 07/18/2016 Oumar Gramajo MD 3 [facility] FU [id number]-[id number]-v22mzj6yqh5k 08/08/2016 08/08/2016 Oumar Gramajo MD 3 [facility] FU [id number]-pi9z6wczg6wa 08/08/2016 08/08/2016 Oumar Gramajo MD 3 [facility] FU [id number] 08/08/2016 08/08/2016 Oumar Gramajo MD 3 [facility] FU [id number] 08/08/2016 08/08/2016 Oumar Gramajo MD 3 [facility] FU [id number] 08/08/2016 08/08/2016 Oumar Gramajo MD 3 [facility] FU [id number] 08/08/2016 08/08/2016 Oumar Gramajo MD TRAMADOL REFILL [id number] 09/27/2016 09/27/2016 Oumar Gramajo MD TRAMADOL REFILL [id number] 09/27/2016 09/27/2016 Oumar Gramajo MD TRAMADOL REFILL [id number]-[id number] 09/27/2016 09/27/2016 Oumar Gramajo MD TRAMADOL REFILL [id number] 09/27/2016 09/27/2016 Oumar Gramajo MD Refill- Tramadol [id number]-[id number] 10/25/2016 10/25/2016 Oumar Gramajo MD Refill- Tramadol [id number] 10/25/2016 10/25/2016 Oumar Gramajo MD Refill- Tramadol [id number] 10/25/2016 10/25/2016 Oumar Gramajo MD 244diggs-243k-[id number] 12/17/2016 12/17/2016 Oumar Gramajo MD [id number] 12/17/2016 12/17/2016 Oumar Gramajo MD [id number] 12/18/2016 12/18/2016 Oumar Gramajo Discharged Inpatient [id number] MAGALY BENITEZ MD 02/13/2018 02/17/2018 [facility] Discharged Inpatient (obs) [id number] MAGALY BENITEZ MD 06/30/2018 07/01/2018 [facility] Procedures Procedure Code Date Perfomer Comments Source Computed tomography of lumbar spine with contrast 07705765 02/13/2018 [facility] Ultrasound, renal [id number] 02/13/2018 [facility]
--- OUTSIDE RECORDS SUMMARY | 2019-03-04 13:57 | XMS REPORT ---
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
[2019-03-04] MEDS ORDERED: HYDROCODONE/APAP 7.5MG-325MG 1 EA TAB PO PRN (14:30)
--- NOTE | 2019-03-04 15:28 | Diagnostic Imaging Report ---
Exam: Right knee 3 views History: Pain, concern for fracture Comparison: None. Findings: Status post total right knee arthroplasty with intact femoral and tibial components. No periprosthetic displaced fracture. Off tissues unremarkable. Impression: Total right knee arthroplasty. No acute osseous abnormality. Signed by: Dr. Heath Pacheco M.D. on 03/04/2019 3:24 PM
--- NOTE | 2019-03-04 16:16 | NUR ---
CM CALLED BY ER NURSE ANNA TO EVALUATE PT PT STATES SHE CANNOT WALK AND THEREFORE CANNOT BE DISCHARGED HOME PT STATES SHE WAS GETTING UP OFF OF COUCH TODAY AND INJURED HER KNEE X-RAYS NEGATIVE FOR ACUTE FINDINGS PT IS IN LOBBY WITH DTR MILLIE KNEE IMMOBILIZER TO RIGHT KNEE PT STATES SHE IS AT HOME ALL DAY BY HERSELF AND DOESN'T THINK SHE CAN WALK ON HER LEG D/W DR BEEBE ORDER FOR P.T. EVAL FOR HOME SAFETY CM CALLED P.T. ; SPOKE WITH GEOFFREY HE WILL BE HERE TO DO EVAL AND WILL CALL ME WITH HIS ASSESSMENT PT HAS A WALKER AT HOME CM TO FOLLOW EXPLAINED TO DR BEEBE THAT PT WILL NEED TO BE ADMITTED OBS STATUS IF UNSAFE TO DC HOME
--- NOTE | 2019-03-04 17:44 | NUR ---
P.T. TANMAYAL DONE BY GEOFFREY IN P.T. PT ABLE TO AMBULATE WITH CGA SPOKE WITH PT'S DTR MILLIE AND SHE IS COMFORTABLE TAKING PT HOME STATES THAT SHE HAS A ROLLATOR AT HOME CM WILL CALL DR SPENCER'S OFFICE IN AM FOR APPT FOR PT AND CALL PT WITH APPT TIME PT AND DTR MILLIE HAVE MY CARD FOR QUESTIONS/CONCERNS NURSE CASTILLO AWARE OF PLAN
--- NOTE | 2019-03-05 10:14 | NUR ---
ERIBERTO CALLED DR SPENCER'S OFFICE AND GOT APPT FOR PT AT 10:30 THIS MORNING CM CALLED PT'S DTR AND NOTIFIED HER OF APPT TIME DTR MILLIE SWARTZ [phone]
== END 2019-03-04 18:07 | disposition home or self-care (01) ==
LOC: ER 13:50
DX: M25.561 Pain in right knee (principal); Z96.651 Presence of right artificial knee joint
CPT/HCPCS: 99284

== ENCOUNTER 2019-07-18 08:56 | Inpatient (IN) | payer MEDICARE ==
[~2019-07-18] VITALS: Ht 165.1 cm; Wt 106.8 kg
--- OUTSIDE RECORDS SUMMARY | 2019-07-18 09:01 | XMS REPORT | Continuity of Care Document ---
Author Author [employer] Organization [employer] Address Unknown Phone Unavailable Care Team Providers Care [facility] Name Role Phone [employer] Information Exchange Unavailable Unavailable Problems Problem Status Onset Date Classification Date Reported Comments Source Right shoulder pain Active Problem 07/11/2019 Oumar Gramajo Rheumatoid arthritis of multiple sites without rheumatoid factor Active Problem 07/11/2019 Oumar Gramajo Primary osteoarthritis involving multiple joints Active Problem 07/11/2019 Oumar Gramajo Other senior living (current) drug therapy Active Problem 07/11/2019 Oumar Gramajo Cigarette nicotine dependence, uncomplicated Active Problem 07/11/2019 Oumar Gramajo Pain in right shoulder Active Problem 07/11/2019 Oumar Gramajo Shoulder pain, left Active Problem 07/11/2019 Oumar Gramajo Age-related osteoporosis without current pathological fracture Active Problem 07/11/2019 Oumar Gramajo Vitamin D deficiency, unspecified Active Problem 07/11/2019 Oumar Gramajo Hyperkalemia Active Diagnosis 09/06/2017 Oumar Gramajo Encounter for long-term (current) drug use Active Diagnosis 09/06/2017 Oumar Gramajo Trochanteric bursitis of left hip Active Problem 07/11/2019 Oumar Gramajo Trochanteric bursitis, right hip Active Problem 07/11/2019 Oumar Gramajo alf current use of opiate analgesic Active Diagnosis 12/24/2018 Oumar Gramajo Osteopenia Active Problem 10/26/2016 Oumar Gramajo Unspecified vitamin D deficiency Active Problem 10/26/2016 Oumar Gramajo Osteoarthrosis, lower leg Active Problem 10/26/2016 Oumar Gramajo Long-term (current) use of other medications - High Risk Active Problem 10/26/2016 Oumar Gramajo Rheumatoid arthritis Active Problem 10/26/2016 Oumar Gramajo Pain in joint, lower leg Active Diagnosis 06/04/2014 Oumar Gramajo Localized osteoarthrosis not specified whether primary or secondary, other specified sites Active Diagnosis 02/17/2015 Oumar Gramajo Rheumatoid arthritis without rheumatoid factor, multiple sites Active Diagnosis 10/05/2015 Oumar Gramajo Encounter for long-term (current) use of other high-risk medications Active Diagnosis 01/10/2016 Oumar Gramajo Need for prophylactic vaccination and inoculation against influenza Active Diagnosis 10/12/2015 Oumar Gramajo Osteoporosis Active Diagnosis 05/03/2016 Oumar Gramajo Obstructive chronic bronchitis with exacerbation Active Problem 07/01/2018 [facility] Pneumonia Active Problem 03/04/2019 [facility] Respiratory failure with hypoxia and hypercapnia Active Problem 03/04/2019 [facility] Obstructive chronic bronchitis with exacerbation Active Problem 03/04/2019 [facility] Medications Medication Details Route Status Patient Instructions Ordering Provider Order Date Source Tramadol 2 tablets orally Active 50 mg orally every 6 hours prn Selin 07/09/2019 Oumar Gramajo Meloxicam 1 tablet Orally Active 7.5 MG Orally Once a day Selin 07/09/2019 Oumar Gramajo PredniSONE 1 tablet Orally Active 5 MG Orally Once a day Selin 07/09/2019 Oumar Gramajo Meloxicam 1 tablet Orally Active 7.5 MG Orally Once a day Gramajo 06/12/2019 Oumar Gramajo Tramadol HCl 2 tablets Orally [...] MG Orally once a week Ma 09/02/2018 Ouamr Gramajo Trevon as directed NA Active 5mg once a day Ma 09/02/2018 Oumar Gramajo PredniSONE 1 tablet Orally Active 5 MG Orally Once a day Ma 06/02/2018 Oumar Gramajo Cefdinir (Omnicef) 300 Mg Capsule, 300 Mg Oral Every 12 Hours Active 02/13/2018 [facility] Prednisone 10 Mg Tab, 10 Mg Oral Active 02/13/2018 [facility] Cefdinir (Omnicef) 300 Mg Capsule, 300 Mg Oral Every 12 Hours Active 02/13/2018 [facility] Prednisone 10 Mg Tab, 10 Mg Oral Active 02/13/2018 [facility] Tramadol HCl TAKE 2 TABLETS BY MOUTH EVERY 6 HOURS Orally Active 50MG Orally every 6 hrs Ma 09/17/2017 Oumar Gramajo Vitamin D (Ergocalciferol) 1 capsule Orally Active 05262 UNIT Orally once week Gramajo 09/04/2017 Oumar Gramajo Prolia as directed Subcutaneous Active 60 MG/ML Subcutaneous [id number] [place] 09/04/2017 Oumar Gramajo Vitamin D (Ergocalciferol) 1 capsule Orally Active 69314 UNIT Orally once week Ma 09/04/2017 Oumar Gramajo Imuran 1 tablet Orally Active 50 MG Orally BID Ma 09/02/2017 Oumar Gramajo Prolia as directed Subcutaneous Active 60 MG/ML Subcutaneous Ma 09/02/2017 Oumar Gramajo Imuran 1 tablet Orally Active 50 MG Orally BID [place] 09/02/2017 Oumar Gramajo Imuran 1 tablet Orally Active 50 MG Orally once a day Ma 05/20/2017 Oumar Gramajo Loratadine 10 Mg Tablet Daily Active [facility] 04/09/2017 [facility] Loratadine 10 Mg Tablet, 10 Mg Oral Daily Active [facility] 04/09/2017 [facility] Benazepril , 10 Mg Oral Daily Active 02/21/2017 [facility] Warfarin Sodium (Coumadin) 5 Mg Tablet, 5 Mg Oral Daily Active 02/21/2017 [facility] Warfarin Sodium (Coumadin) 5 Mg Tablet, 5 Mg Oral Daily Active 02/21/2017 [facility] Sulfasalazine (Azulfidine) 500 Mg Tablet., 500 Mg Oral Active 02/18/2017 [facility] Sulfasalazine (Azulfidine) 500 Mg Tablet., 500 Mg Oral Active 02/18/2017 [facility] Leflunomide 1 tablet Orally Active 10 MG Orally Once a day Ma 12/17/2016 Oumar Gramajo Tramadol HCl TAKE TWO TABLETS BY MOUTH EVERY 6 HOURS Orally Active 50MG Orally every 6 hrs [place] 09/27/2016 Oumar Gramajo Boniva 1 tablet Orally Active 150 MG Orally Oncce a month [place] 04/20/2016 Oumar Gramajo Acetaminophen-Codeine #4 1 tablet as needed Orally Active 300- 60 MG Orally bid [place] 01/05/2016 Oumar Gramajo Sulfasalazine 4 tablets Orally Active 500MG Orally BID Ma 01/02/2016 Oumar Gramajo Sulfasalazine take two tablets Orally Active 500MG Orally three times a day [place] 01/18/2015 Oumar Gramajo [id number] 1 capsule Orally Active 500-50 MG Orally every 12 hrs Rik 01/06/2015 Oumar Gramajo Naproxen 1 tablet as needed Orally Active 500 MG Orally Three times a day [place] 09/22/2014 Oumar Gramajo Methotrexate 5 tablets Orally [...] HOURS NA Active 50MG Ma Oumar Gramajo Coumadin 1 tablet Orally [...] Active 50MG Orally every 6 hrs Ma Oumar Gramajo Sulfasalazine take two tablets Orally Active 500MG Orally three times a day Anil Gramajo Tramadol one tab orally Active 50 mg orally every 4-6 hours prn pain Anil Gramajo Fosamax 1 tablet Orally Active 40 MG Orally Once a day Anil Gramajo Meloxicam 1 tablet Orally Active 7.5 MG Orally Once a day Mahernan Gramajo Tramadol HCl TAKE TWO TABLETS BY MOUTH THREE TIMES DAILY NA Active 50MG Mahernan Gramajo Omeprazole 1 capsule Orally Active 20 MG Orally Once a day Mahernan Gramajo Vitamin D (Ergocalciferol) 1 capsule Orally Active 94695 UNIT Orally once a week Adalgisa Gramajo Sulfasalazine take two tablets Orally Active 500MG Orally three times a day Rik Gramajo Sulfasalazine TAKE TWO TABLETS BY MOUTH THREE TIMES DAILY Orally Active 500MG Orally tid Anil Gramajo Acetaminophen-Codeine #4 1 tablet as needed Orally Active 300- 60 MG Orally bid Mahernan Gramajo Tramadol 2 tablets orally Active 50 mg orally every 6 hours prn Ma Oumar Gramajo Amlodipine Besylate 5 Mg Tablet Daily Active [facility] Benazepril Hcl 10 Mg Tablet Daily Active [facility] Meloxicam 7.5 Mg Tablet Daily Active [facility] Pravastatin Daily Active [facility] Tramadol Hcl (Ultram) 50 Mg Tablet 2TID Active [facility] Warfarin Sodium 2.5 Mg Tablet Daily Active [facility] Amlodipine Besylate 5 Mg Tablet Daily Active [facility] Benazepril Hcl 10 Mg Tablet Daily Active [facility] Meloxicam 7.5 Mg Tablet Daily Active [facility] Warfarin Sodium 2.5 Mg Tablet Daily Active [facility] Allergies, Adverse Reactions, Alerts Substance Category Reaction Severity Reaction type Status Date Reported Comments Source Sulfasalazine Adverse Reaction Info Not Available Adverse Reaction Active 12/22/2018 Oumar Gramajo Plaquenil Adverse Reaction Info Not Available Adverse Reaction Active 12/22/2018 Oumar Gramajo Imuran Adverse Reaction Info Not Available Adverse Reaction Active 12/22/2018 Oumar Gramajo Immunizations Immunization Date Given Site Status Last Updated Comments Source Flu Vaccine 10/04/2015 completed Oumar Gramajo Results Order Name Results Value Reference Range Date Interpretation Comments Source Blood leukocytes automated count (number/volume) 10.74 4.8 - 10.8 01/02/2019 [facility] Blood erythrocytes automated count (number/volume) 4.27 3.6 - 5.1 01/02/2019 [facility] Blood hemoglobin measurement (moles/volume) 13.3 12.0 - 16.0 01/02/2019 [facility] Automated blood hematocrit (volume fraction) 40.4 34.2 - 44.1 01/02/2019 [facility] Automated erythrocyte mean corpuscular volume 94.6 81 - 99 01/02/2019 [facility] Automated erythrocyte mean corpuscular hemoglobin (mass per erythrocyte) 31.1 28 - 32 01/02/2019 [facility] Automated erythrocyte mean corpuscular hemoglobin concentration measurement (mass/volume) 32.9 31 - 35 01/02/2019 [facility] RDW BldCo-Rto 14.2 11.7 - 14.4 01/02/2019 [facility] Automated blood platelet count (count/volume) 273 140 - 360 01/02/2019 [facility] Automated blood segmented neutrophil count as percentage of total leukocytes 82.2 38.7 - 80.0 01/02/2019 [facility] Automated blood lymphocyte count as percentage ot total leukocytes 13.1 18.0 - 39.1 01/02/2019 [facility] Automated blood monocyte count as percentage of total leukocytes 4.1 4.4 - 11.3 01/02/2019 [facility] Automated blood eosinophil count as percentage of total leukocytes 0.0 0.0 - 6.0 01/02/2019 [facility] Automated blood basophil count as percentage of total leukocytes 0.1 0.0 - 1.0 01/02/2019 [facility] IM GRANULOCYTES % 0.5 0.0 - 1.0 01/02/2019 [facility] Automated blood neutrophil count 8.8 2.1 - 6.9 01/02/2019 [facility] Blood lymphocytes count (number/volume) 1.4 1.0 - 3.2 01/02/2019 [facility] Blood monocytes automated count (number/volume) 0.4 0.2 - 0.8 01/02/2019 [facility] Automated blood eosinophil count 0.0 0.0 - 0.4 01/02/2019 [facility] Automated blood basophil count (count/volume) 0.0 0.0 - 0.1 01/02/2019 [facility] Absolute Immature Granulocyte (auto 0.05 0 - 0.1 01/02/2019 [facility] Prothrombin time (PT) in platelet poor plasma by coagulation assay 18.9 11.9 - 14.5 01/02/2019 [facility] INR in Platelet poor plasma by Coagulation assay 1.46 01/02/2019 [facility] Serum or plasma sodium measurement (moles/volume) 135 136 - 145 01/02/2019 [facility] Serum or plasma potassium measurement (moles/volume) 4.9 3.5 - 5.1 01/02/2019 [facility] Serum or plasma chloride measurement (moles/volume) 102 98 - 107 01/02/2019 [facility] Serum or plasma carbon dioxide, total measurement (moles/volume) 27 22 - 29 01/02/2019 [facility] Serum or plasma anion gap 10.9 8 - 16 01/02/2019 [facility] Serum or plasma urea nitrogen measurement (mass/volume) 29 7 - 26 01/02/2019 [facility] Serum or plasma creatinine measurement (mass/volume) 0.83 0.57 - 1.11 01/02/2019 [facility] Serum or plasma urea nitrogen/creatinine mass ratio 35 6 - 25 01/02/2019 [facility] Estimated glomerular filtration rate (GFR) determination > 60 60 01/02/2019 [facility] Glucose measurement 144 74 - 118 01/02/2019 [facility] Serum or plasma calcium measurement (mass/volume) 8.7 8.4 - 10.2 01/02/2019 [facility] Serum or plasma total bilirubin measurement (mass/volume) 0.2 0.2 - 1.2 01/01/2019 [facility] Aspartate Amino Transf (AST/SGOT) 14 5 - 34 01/01/2019 [facility] Serum or plasma alanine aminotransferase measurement (enzymatic activity/volume) 19 0 - 55 01/01/2019 [facility] Serum or plasma protein measurement (mass/volume) 6.2 6.5 - 8.1 01/01/2019 [facility] Serum or plasma albumin measurement (mass/volume) 3.0 3.5 - 5.0 01/01/2019 [facility] Plasma globulin measurement (mass/volume) 3.2 2.3 - 3.5 01/01/2019 [facility] Serum or plasma albumin/globulin mass ratio 0.9 0.8 - 2.0 01/01/2019 [facility] Serum or plasma alkaline phosphatase measurement (enzymatic activity/volume) 83 40 - 150 01/01/2019 [facility] Serum or plasma creatine kinase measurement (enzymatic activity/volume) 106 29 - 168 12/30/2018 [facility] Serum or plasma creatine kinase MB measurement (mass/volume) 2.10 0 - 5.0 12/30/2018 [facility] Troponin I measurement by highly sensitive enzyme immunoassay < 0.001 0 - 0.300 12/30/2018 [facility] Urine color determination STRAW YELLOW 12/29/2018 [facility] Urine clarity SL CLOUDY CLEAR 12/29/2018 [facility] Specific gravity of Urine by Test strip 1.030 1.010 - 1.025 12/29/2018 [facility] Urine pH measurement by automated test strip 6 5 - 7 12/29/2018 [facility] Urine leukocyte esterase detection by dipstick TRACE NEGATIVE 12/29/2018 [facility] Urine nitrite detection NEGATIVE NEGATIVE 12/29/2018 [facility] Urine protein measurement by test strip (mass/volume) 1+ NEGATIVE 12/29/2018 [facility] Urine glucose detection NEGATIVE NEGATIVE 12/29/2018 [facility] Urine ketones detection by automated test strip TRACE NEGATIVE 12/29/2018 [facility] Urine urobilinogen measurement by test strip (mass/volume) 0.2 0.2 - 1 12/29/2018 [facility] Urine total bilirubin measurement (mass/volume) NEGATIVE NEGATIVE 12/29/2018 [facility] Urine erythrocytes detection 1+ NEGATIVE 12/29/2018 [facility] Automated urine sediment leukocyte count by microscopy (number/high power field) 6-10 0 - 5 12/29/2018 [facility] Erythrocytes detection in urine sediment by light microscopy 6-10 0 - 5 12/29/2018 [facility] Bacteria detection in urine sediment by light microscopy MANY NONE 12/29/2018 [facility] Epithelial cells detection in urine sediment by light microscopy FEW NONE 12/29/2018 [facility] Urine Legionella pneumophila 1 antigen detection by immunoassay Negative Negative 12/29/2018 [facility] Activated partial thromboplastin time (aPTT) in platelet poor plasma bycoagulation assay 27.8 23.8 - 35.5 12/29/2018 [facility] Lactic Acid Level 7.9 4.5 - 19.8 12/29/2018 [facility] BNP Bld-mCnc 50.3 0 - 100 12/29/2018 [facility] Blood culture NO GROWTH AFTER 5 DAYS, FINAL REPORT 12/29/2018 [facility] Influenza virus A and B antigen identification by immunofluorescence NEGATIVE NEGATIVE 12/29/2018 [facility] Streptococcus pyogenes antigen detection in throat NEGATIVE NEGATIVE 12/29/2018 [facility] Differential Total Cells Counted 100 09/14/2018 [facility] Manual blood neutrophils/100 leukocytes 67 40 - 74 09/14/2018 [facility] Manual blood band neutrophils form/100 leukocytes 18 09/14/2018 [facility] Manual blood lymphocytes/100 leukocytes 9 19 - 48 09/14/2018 [facility] Manual blood monocytes/100 leukocytes 6 3.4 - 9.0 09/14/2018 [facility] Blood platelets count by estimate (number/volume) ADEQUATE 09/14/2018 [facility] Platelet morphology NORMAL 09/14/2018 [facility] RBC morphology NORMAL 09/14/2018 [facility] Serum or plasma thyrotropin measurement by detection limit <=0.005 miu/l (units/volume) 0.225 0.350 - 4.940 09/13/2018 [facility] Arterial blood pH measurement 7.33 7.31 - 7.41 09/12/2018 [facility] pCO2 BldA 53 41 - 51 09/12/2018 [facility] pCO2 BldA 65 80 - 105 09/12/2018 [facility] Arterial blood bicarbonate measurement (moles/volume) 28 23 - 28 09/12/2018 [facility] Arterial blood base excess by calculation 2.0 -2 - 3 - 2 09/12/2018 [facility] Arterial blood oxygen saturation measurement 90.0 95 - 98 09/12/2018 [facility] FiO2 32 09/12/2018 [facility] Manual blood eosinophil count as percentage of total leukocytes 1 0 - 7 09/12/2018 [facility] Manual basophil percentage 1 0 - 1.5 09/12/2018 [facility] Blood anisocytosis detection by light microscopy SLIGHT 09/12/2018 [facility] Automated blood basophil count (count/volume) Automated blood basophil count (count/volume) 0.0 0.0 - 0.1 07/01/2018 [facility] Automated blood basophil count as percentage of total leukocytes Automated blood basophil count as percentage of total leukocytes 0.1 0.0 - 1.0 07/01/2018 [facility] Automated blood eosinophil count Automated blood eosinophil count 0.0 0.0 - 0.4 07/01/2018 [facility] Automated blood eosinophil count as percentage of total leukocytes Automated blood eosinophil count as percentage of total leukocytes 0.0 0.0 - 6.0 07/01/2018 [facility] Automated blood hematocrit (volume fraction) Automated blood hematocrit (volume fraction) 41.7 34.2 - 44.1 07/01/2018 [facility] Automated blood lymphocyte count as percentage ot total leukocytes Automated blood lymphocyte count as percentage ot total leukocytes 14.3 18.0 - 39.1 07/01/2018 [facility] Automated blood monocyte count as percentage of total leukocytes Automated blood monocyte count as percentage of total leukocytes 3.8 4.4 - 11.3 07/01/2018 [facility] Automated blood neutrophil count Automated blood neutrophil count 8.8 2.1 - 6.9 07/01/2018 [facility] Automated blood platelet count (count/volume) Automated blood platelet count (count/volume) 268 140 - 360 07/01/2018 [facility] Automated blood segmented neutrophil count as percentage of total leukocytes Automated blood segmented neutrophil count as percentage of total leukocytes 81.4 38.7 - 80.0 07/01/2018 [facility] Automated erythrocyte mean corpuscular hemoglobin (mass per erythrocyte) Automated erythrocyte mean corpuscular hemoglobin (mass per erythrocyte) 30.8 28 - 32 07/01/2018 [facility] Automated erythrocyte mean corpuscular hemoglobin concentration measurement (mass/volume) Automated erythrocyte mean corpuscular hemoglobin concentration measurement (mass/volume) 32.6 31 - 35 07/01/2018 [facility] Automated erythrocyte mean corpuscular volume Automated erythrocyte mean corpuscular volume 94.3 81 - 99 07/01/2018 [facility] Blood erythrocytes automated count (number/volume) Blood erythrocytes automated count (number/volume) 4.42 3.6 - 5.1 07/01/2018 [facility] Blood hemoglobin measurement (moles/volume) Blood hemoglobin measurement (moles/volume) 13.6 12.0 - 16.0 07/01/2018 [facility] Blood leukocytes automated count (number/volume) Blood leukocytes automated count (number/volume) 10.77 4.8 - 10.8 07/01/2018 [facility] Blood lymphocytes count (number/volume) Blood lymphocytes count (number/volume) 1.5 1.0 - 3.2 07/01/2018 [facility] Blood monocytes automated count (number/volume) Blood monocytes automated count (number/volume) 0.4 0.2 - 0.8 07/01/2018 [facility] Estimated glomerular filtration rate (GFR) determination Estimated glomerular filtration rate (GFR) determination >60 60 07/01/2018 [facility] Glucose measurement Glucose measurement 158 74 - 118 07/01/2018 [facility] INR in Platelet poor plasma by Coagulation assay INR in Platelet poor plasma by Coagulation assay 1.02 07/01/2018 [facility] Plasma globulin measurement (mass/volume) Plasma globulin measurement (mass/volume) 3.5 2.3 - 3.5 07/01/2018 [facility] Prothrombin time (PT) in platelet poor plasma by coagulation assay Prothrombin time (PT) in platelet poor plasma by coagulation assay 12.6 11.9 - 14.5 07/01/2018 [facility] Serum or plasma alanine aminotransferase measurement (enzymatic activity/volume) Serum or plasma alanine aminotransferase measurement (enzymatic activity/volume) 28 0 - 55 07/01/2018 [facility] Serum or plasma albumin measurement (mass/volume) Serum or plasma albumin measurement (mass/volume) 3.1 3.5 - 5.0 07/01/2018 [facility] Serum or plasma albumin/globulin mass ratio Serum or plasma albumin/globulin mass ratio 0.9 0.8 - 2.0 07/01/2018 [facility] Serum or plasma alkaline phosphatase measurement (enzymatic activity/volume) Serum or plasma alkaline phosphatase measurement (enzymatic activity/volume) 112 40 - 150 07/01/2018 [facility] Serum or plasma anion gap Serum or plasma anion gap 14.0 8 - 16 07/01/2018 [facility] Serum or plasma calcium measurement (mass/volume) Serum or plasma calcium measurement (mass/volume) 9.4 8.4 - 10.2 07/01/2018 [facility] Serum or plasma carbon dioxide, total measurement (moles/volume) Serum or plasma carbon dioxide, total measurement (moles/volume) 34 22 - 29 07/01/2018 [facility] Serum or plasma chloride measurement (moles/volume) Serum or plasma chloride measurement (moles/volume) 102 98 - 107 07/01/2018 [facility] Serum or plasma creatinine measurement (mass/volume) Serum or plasma creatinine measurement (mass/volume) 0.80 0.57 - 1.11 07/01/2018 [facility] Serum or plasma potassium measurement (moles/volume) Serum or plasma potassium measurement (moles/volume) 5.0 3.5 - 5.1 07/01/2018 [facility] Serum or plasma protein measurement (mass/volume) Serum or plasma protein measurement (mass/volume) 6.6 6.5 - 8.1 07/01/2018 [facility] Serum or plasma sodium measurement (moles/volume) Serum or plasma sodium measurement (moles/volume) 145 136 - 145 07/01/2018 [facility] Serum or plasma total bilirubin measurement (mass/volume) Serum or plasma total bilirubin measurement (mass/volume) 0.5 0.2 - 1.2 07/01/2018 [facility] Serum or plasma urea nitrogen measurement (mass/volume) Serum or plasma urea nitrogen measurement (mass/volume) 22 7 - 26 07/01/2018 [facility] Serum or plasma urea nitrogen/creatinine mass ratio Serum or plasma urea nitrogen/creatinine mass ratio 28 6 - 25 07/01/2018 [facility] Red Cell Distribution Width 15.9 11.7 - 14.4 07/01/2018 [facility] IM GRANULOCYTES % 0.4 0.0 - 1.0 07/01/2018 [facility] Absolute Immature Granulocyte (auto 0.04 0 - 0.1 07/01/2018 [facility] Aspartate Amino Transf (AST/SGOT) 19 5 - 34 07/01/2018 [facility] Serum or plasma creatine kinase MB measurement (mass/volume) Serum or plasma creatine kinase MB measurement (mass/volume) 3.30 0 - 5.0 06/30/2018 [facility] Serum or plasma creatine kinase measurement (enzymatic activity/volume) Serum or plasma creatine kinase measurement (enzymatic activity/volume) 74 29 - 168 06/30/2018 [facility] Troponin I measurement by highly sensitive enzyme immunoassay Troponin I measurement by highly sensitive enzyme immunoassay 0.038 0 - 0.300 06/30/2018 [facility] Activated partial thromboplastin time (aPTT) in platelet poor plasma bycoagulation assay Activated partial thromboplastin time (aPTT) in platelet poor plasma bycoagulation assay 28.9 23.8 - 35.5 06/29/2018 [facility] B-Type Natriuretic Peptide 88.6 0 - 100 06/29/2018 [facility] Serum or plasma trough vancomycin level at trough (mass/volume) Serum or plasma trough vancomycin level at trough (mass/volume) 11.2 5.0 - 10.0 02/16/2018 [facility] Blood platelets count by estimate (number/volume) Blood platelets count by estimate (number/volume) MODERATELY INCREASED 02/16/2018 [facility] Manual blood band neutrophils form/100 leukocytes Manual blood band neutrophils form/100 leukocytes 4 02/16/2018 [facility] Manual blood lymphocytes/100 leukocytes Manual blood lymphocytes/100 leukocytes 22 19 - 48 02/16/2018 [facility] Manual blood monocytes/100 leukocytes Manual blood monocytes/100 leukocytes 5 3.4 - 9.0 02/16/2018 [facility] Manual blood neutrophils/100 leukocytes Manual blood neutrophils/100 leukocytes 69 40 - 74 02/16/2018 [facility] Platelet morphology Platelet morphology NORMAL 02/16/2018 [facility] RBC morphology RBC morphology NORMAL 02/16/2018 [facility] Differential Total Cells Counted 100 02/16/2018 [facility] Arterial blood base excess by calculation Arterial blood base excess by calculation 9.0 -2 - 3 - 2 02/13/2018 [facility] Arterial blood bicarbonate measurement (moles/volume) Arterial blood bicarbonate measurement (moles/volume) 35 23 - 28 02/13/2018 [facility] Arterial blood oxygen saturation measurement Arterial blood oxygen saturation measurement 90.0 95 - 98 02/13/2018 [facility] Arterial blood pH measurement Arterial blood pH measurement 7.34 7.31 - 7.41 02/13/2018 [facility] Arterial Blood Partial Pressure CO2 65 41 - 51 02/13/2018 [facility] Arterial Blood Partial Pressure O2 65 80 - 105 02/13/2018 [facility] Amorphous sediment detection in urine sediment by light microscopy Amorphous sediment detection in urine sediment by light microscopy RARE FEW 02/13/2018 [facility] Automated urine sediment leukocyte count by microscopy (number/high power field) Automated urine sediment leukocyte count by microscopy (number/high power field) NONE 0 - 5 02/13/2018 [facility] Bacteria detection in urine sediment by light microscopy Bacteria detection in urine sediment by light microscopy NONE NONE 02/13/2018 [facility] Coarse granular casts detection in urine sediment by light microscopy Coarse granular casts detection in urine sediment by light microscopy <5 0 02/13/2018 [facility] Epithelial cells detection in urine sediment by light microscopy Epithelial cells detection in urine sediment by light microscopy NONE NONE 02/13/2018 [facility] Erythrocytes detection in urine sediment by light microscopy Erythrocytes detection in urine sediment by light microscopy <20 0 - 5 02/13/2018 [facility] Specific gravity of Urine by Test strip Specific gravity of Urine by Test strip 1.025 1.010 - 1.025 02/13/2018 [facility] Urine clarity Urine clarity SL CLOUDY CLEAR 02/13/2018 [facility] Urine color determination Urine color determination YELLOW YELLOW 02/13/2018 [facility] Urine erythrocytes detection Urine erythrocytes detection 3+ NEGATIVE 02/13/2018 [facility] Urine glucose detection Urine glucose detection NEGATIVE NEGATIVE 02/13/2018 [facility] Urine ketones detection by automated test strip Urine ketones detection by automated test strip NEGATIVE NEGATIVE 02/13/2018 [facility] Urine Legionella pneumophila 1 antigen detection by immunoassay Urine Legionella pneumophila 1 antigen detection by immunoassay Negative Negative 02/13/2018 [facility] Urine leukocyte esterase detection by dipstick Urine leukocyte esterase detection by dipstick NEGATIVE NEGATIVE 02/13/2018 [facility] Urine nitrite detection Urine nitrite detection NEGATIVE NEGATIVE 02/13/2018 [facility] Urine pH measurement by automated test strip Urine pH measurement by automated test strip 5 5 - 7 02/13/2018 [facility] Urine protein measurement by test strip (mass/volume) Urine protein measurement by test strip (mass/volume) 2+ NEGATIVE 02/13/2018 [facility] Urine total bilirubin measurement (mass/volume) Urine total bilirubin measurement (mass/volume) NEGATIVE NEGATIVE 02/13/2018 [facility] Urine urobilinogen measurement by test strip (mass/volume) Urine urobilinogen measurement by test strip (mass/volume) 1 0.2 - 1 02/13/2018 [facility] Influenza virus A and B antigen identification by immunofluorescence Influenza virus A and B antigen identification by immunofluorescence NEGATIVE NEGATIVE 02/13/2018 [facility] Blood culture Blood culture NO GROWTH AFTER 5 DAYS, FINAL REPORT 02/13/2018 [facility] Serum or plasma magnesium measurement (mass/volume) Serum or plasma magnesium measurement (mass/volume) 1.6 1.3 - 2.1 02/13/2018 [facility] Lactic Acid Level 9.4 4.5 - 19.8 02/13/2018 [facility] Pathology Reports No Data Provided for This Section Diagnostic Reports No Data Provided for This Section Consultation Notes No Data Provided for This Section Discharge Summaries No Data Provided for This Section History and Physicals No Data Provided for This Section Vital Signs Vital Sign Value Date Comments [...] 05/20/2017 Oumar Gramajo Height 62 05/20/2017 Oumar Graamjo Temperature Oral (F) 99.1 F 05/20/2017 Oumar [...] Gramajo Systolic (mm Hg) 130 08/08/2016 Oumar Garmajo Weight 201 04/18/2016 Oumar Gramajo Height 62 [...] Gramajo Systolic (mm Hg) 132 03/16/2014 Oumar Fisherer Encounters Location Location Details Encounter Type Encounter Number Reason For Visit Attending Provider ADM Date DC Date Status Source Preston Gramajo MD follow u for refills [id number] 03/16/2014 03/16/2014 Oumar Gramajo MD follow u for refills [id number] 03/16/2014 03/16/2014 Oumar Gramajo MD follow u for refills [id number] 03/16/2014 03/16/2014 Oumar Gramajo MD follow u for refills [id number] 03/16/2014 03/16/2014 Oumar Gramajo MD follow u for refills [id number] 03/16/2014 03/16/2014 Oumar Gramajo MD follow u for refills [id number] 03/16/2014 03/16/2014 Oumar Gramajo MD follow u for refills [id number] 03/16/2014 03/16/2014 Oumar Gramajo MD follow u for refills [id number] 03/16/2014 03/16/2014 Oumar Gramajo MD follow u for refills [id number] 03/16/2014 03/16/2014 Oumar Gramajo MD follow u for refills [id number] 03/16/2014 03/16/2014 Oumar Gramajo MD follow u for refills [id number] 03/16/2014 03/16/2014 Oumar Gramajo MD follow u for refills [id number] 03/16/2014 03/16/2014 Oumar Gramajo MD follow u for refills [id number] 03/16/2014 03/16/2014 Oumar Gramajo MD follow u for refills [id number] 03/16/2014 03/16/2014 Oumar Gramajo MD follow u for refills [id number] 03/16/2014 03/16/2014 Oumar Gramajo MD follow u for refills [id number] 03/16/2014 03/16/2014 Oumar Gramajo MD follow u for refills [id number] 03/16/2014 03/16/2014 Oumar Gramajo MD follow u for refills [id number] 03/16/2014 03/16/2014 Oumar Gramajo MD follow u for refills [id number] 03/16/2014 03/16/2014 Oumar Gramajo MD follow u for refills [id number] 03/16/2014 03/16/2014 Oumar Gramajo MD follow u for refills [id number] 03/16/2014 03/16/2014 Oumar Gramajo MD follow u for refills [id number] 03/16/2014 03/16/2014 Oumar Gramajo MD follow u for refills [id number] 03/16/2014 03/16/2014 Oumar Gramajo MD follow u for refills [id number] 03/16/2014 03/16/2014 Oumar Gramajo MD follow u for refills [id number] 03/16/2014 03/16/2014 Oumar Gramajo MD follow u for refills [id number] 03/16/2014 03/16/2014 Oumar Gramajo MD follow u for refills [id number] 03/16/2014 03/16/2014 Oumar Gramajo MD follow u for refills [id number] 03/16/2014 03/16/2014 Oumar Gramajo MD follow u for refills [id number] 03/16/2014 03/16/2014 Oumra Gramajo MD follow u for refills [id number] 03/16/2014 03/16/2014 Oumar Gramajo MD follow u for refills [id number] 03/16/2014 03/16/2014 Oumar Gramajo MD follow u for refills [id number] 03/16/2014 03/16/2014 Oumar Gramajo MD follow u for refills [id number] 06/01/2014 06/01/2014 Oumar Gramajo MD follow u for refills [id number] 06/01/2014 06/01/2014 Oumar Gramajo MD follow u for refills [id number] 06/01/2014 06/01/2014 Oumar Gramajo MD follow u for refills [id number] 06/01/2014 06/01/2014 Oumar Gramajo MD follow u for refills [id number] 06/01/2014 06/01/2014 Oumar Gramajo MD follow u for refills [id number] 06/01/2014 06/01/2014 Oumar Gramajo MD follow u for refills [id number] 06/01/2014 06/01/2014 Oumar Gramajo MD follow u for refills [id number] 06/01/2014 06/01/2014 Oumar Gramajo MD follow u for refills [id number] 06/01/2014 06/01/2014 Oumar Gramajo MD follow u for refills [id number] 06/01/2014 06/01/2014 Oumar Gramajo MD follow u for refills [id number] 06/01/2014 06/01/2014 Oumar Gramajo MD follow u for refills [id number] 06/01/2014 06/01/2014 Oumar Gramajo MD follow u for refills [id number] 06/01/2014 06/01/2014 Oumar Gramajo MD follow u for refills [id number] 06/01/2014 06/01/2014 Oumar Gramajo MD follow u for refills [id number] 06/01/2014 06/01/2014 Oumar Gramajo MD follow u for refills [id number] 06/01/2014 06/01/2014 Oumar Gramajo MD follow u for refills [id number] 06/01/2014 06/01/2014 uOmar Gramajo MD follow u for refills [id number] 06/01/2014 06/01/2014 Oumar Gramajo MD follow u for refills [id number] 06/01/2014 06/01/2014 Oumar Gramajo MD follow u for refills [id number] 06/01/2014 06/01/2014 Oumar Gramajo MD follow u for refills [id number] 06/01/2014 06/01/2014 Oumar Gramajo MD follow u for refills [id number] 06/01/2014 06/01/2014 Oumar Gramajo MD follow u for refills [id number] 06/01/2014 06/01/2014 Oumar Gramajo MD follow u for refills [id number] 06/01/2014 06/01/2014 Oumar Gramajo MD follow u for refills [id number] 06/01/2014 06/01/2014 Oumar Gramajo MD follow u for refills [id number] 06/01/2014 06/01/2014 Oumar Gramajo MD follow u for refills [id number] 06/01/2014 06/01/2014 Oumar Gramajo MD follow u for refills [id number] 06/01/2014 06/01/2014 Oumar Gramajo MD follow u for refills [id number] 06/01/2014 06/01/2014 Oumar Gramajo MD follow u for refills [id number] 06/01/2014 06/01/2014 Oumar Gramajo MD follow u for refills [id number] 06/01/2014 06/01/2014 Oumar Gramajo MD sulfasalazine [id number] 06/04/2014 06/04/2014 Oumar Gramajo MD sulfasalazine [id number] 06/04/2014 06/04/2014 Oumar Gramajo MD sulfasalazine [id number] 06/04/2014 06/04/2014 Oumar Gramajo MD sulfasalazine [id number] 06/04/2014 06/04/2014 Oumar Gramajo MD sulfasalazine [id number] 06/04/2014 06/04/2014 Oumar Gramajo MD sulfasalazine [id number] 06/04/2014 06/04/2014 Oumar Gramajo MD sulfasalazine [id number] 06/04/2014 06/04/2014 Oumar Gramajo MD sulfasalazine [id number] 06/04/2014 06/04/2014 Oumar Gramajo MD sulfasalazine [id number] 06/04/2014 06/04/2014 Oumar Gramajo MD sulfasalazine [id number] 06/04/2014 06/04/2014 Oumar Gramajo MD sulfasalazine [id number] 06/04/2014 06/04/2014 Oumar Gramajo MD sulfasalazine [id number] 06/04/2014 06/04/2014 Oumar Gramajo MD sulfasalazine [id number] 06/04/2014 06/04/2014 Oumar Gramajo MD sulfasalazine [id number] 06/04/2014 06/04/2014 Oumar Gramajo MD sulfasalazine [id number] 06/04/2014 06/04/2014 Oumar Gramajo MD sulfasalazine [id number] 06/04/2014 06/04/2014 Oumar Gramajo MD sulfasalazine [id number] 06/04/2014 06/04/2014 Oumar Gramajo MD sulfasalazine [id number] 06/04/2014 06/04/2014 Oumar Gramajo MD sulfasalazine [id number] 06/04/2014 06/04/2014 Oumar Gramajo MD sulfasalazine [id number] 06/04/2014 06/04/2014 Oumar Gramajo MD sulfasalazine [id number] 06/04/2014 06/04/2014 Oumar Gramajo MD sulfasalazine [id number] 06/04/2014 06/04/2014 Oumar Gramajo MD sulfasalazine [id number] 06/04/2014 06/04/2014 Oumar Gramajo MD sulfasalazine [id number] 06/04/2014 06/04/2014 Oumar Gramajo MD sulfasalazine [id number] 06/04/2014 06/04/2014 Oumar Gramajo MD sulfasalazine [id number] 06/04/2014 06/04/2014 Oumar Gramajo MD sulfasalazine [id number] 06/04/2014 06/04/2014 Oumar Gramajo MD sulfasalazine [id number] 06/04/2014 06/04/2014 Oumar Gramajo MD sulfasalazine [id number] 06/04/2014 06/04/2014 Oumar Gramajo MD sulfasalazine [id number] 06/04/2014 06/04/2014 Oumar Gramajo MD sulfasalazine [id number] 06/04/2014 06/04/2014 Oumar Gramajo MD Refill- Tramadol [id number] 07/21/2014 07/21/2014 Oumar Gramajo MD Refill- Tramadol [id number] 07/21/2014 07/21/2014 Oumar Gramajo MD Refill- Tramadol [id number] 07/21/2014 07/21/2014 Oumar Gramajo MD Refill- Tramadol [id number] 07/21/2014 07/21/2014 Oumar Gramajo MD Refill- Tramadol [id number] 07/21/2014 07/21/2014 Oumar Gramajo MD Refill- Tramadol [id number] 07/21/2014 07/21/2014 Oumar Gramajo MD Refill- Tramadol [id number] 07/21/2014 07/21/2014 Oumar Gramajo MD Refill- Tramadol [id number] 07/21/2014 07/21/2014 Oumar Gramajo MD Refill- Tramadol [id number] 07/21/2014 07/21/2014 Oumar Gramajo MD Refill- Tramadol [id number] 07/21/2014 07/21/2014 Oumar Gramajo MD Refill- Tramadol [id number] 07/21/2014 07/21/2014 Oumar Gramajo MD Refill- Tramadol [id number] 07/21/2014 07/21/2014 Oumar Gramajo MD Refill- Tramadol [id number] 07/21/2014 07/21/2014 Oumar Gramajo MD Refill- Tramadol [id number] 07/21/2014 07/21/2014 Oumar Gramajo MD Refill- Tramadol [id number] 07/21/2014 07/21/2014 Oumar Gramajo MD Refill- Tramadol [id number] 07/21/2014 07/21/2014 Oumar Gramajo MD Refill- Tramadol [id number] 07/21/2014 07/21/2014 Oumar Gramajo MD Refill- Tramadol [id number] 07/21/2014 07/21/2014 Oumar Gramajo MD Refill- Tramadol [id number] 07/21/2014 07/21/2014 Oumar Gramajo MD Refill- Tramadol [id number] 07/21/2014 07/21/2014 Oumar Gramajo MD Refill- Tramadol [id number] 07/21/2014 07/21/2014 Oumar Gramajo MD Refill- Tramadol [id number] 07/21/2014 07/21/2014 Oumar Gramajo MD Refill- Tramadol [id number] 07/21/2014 07/21/2014 Oumar Gramajo MD Refill- Tramadol [id number] 07/21/2014 07/21/2014 Oumar Gramajo MD Refill- Tramadol [id number] 07/21/2014 07/21/2014 Oumar Gramajo MD Refill- Tramadol [id number] 07/21/2014 07/21/2014 Oumar Gramajo MD Refill- Tramadol [id number] 07/21/2014 07/21/2014 Oumar Gramajo MD Refill- Tramadol [id number] 07/21/2014 07/21/2014 Oumar Gramajo MD Refill- Tramadol [id number] 07/21/2014 07/21/2014 Oumar Gramajo MD tramadol- refill [id number] 08/20/2014 08/20/2014 Oumar Gramajo MD tramadol- refill [id number] 08/20/2014 08/20/2014 Oumar Gramajo MD tramadol- refill [id number] 08/20/2014 08/20/2014 Oumar Gramajo MD tramadol- refill [id number] 08/20/2014 08/20/2014 Oumar Gramajo MD tramadol- refill [id number] 08/20/2014 08/20/2014 Oumar Gramajo MD tramadol- refill [id number] 08/20/2014 08/20/2014 Oumar Gramajo MD tramadol- refill [id number] 08/20/2014 08/20/2014 Oumar Gramajo MD tramadol- refill [id number] 08/20/2014 08/20/2014 Oumar Gramajo MD tramadol- refill [id number] 08/20/2014 08/20/2014 Oumar Gramajo MD tramadol- refill [id number] 08/20/2014 08/20/2014 Oumar Gramajo MD tramadol- refill [id number] 08/20/2014 08/20/2014 Oumar Gramajo MD tramadol- refill [id number] 08/20/2014 08/20/2014 Oumar Gramajo MD tramadol- refill [id number] 08/20/2014 08/20/2014 Oumar Gramajo MD tramadol- refill [id number] 08/20/2014 08/20/2014 Oumar Gramajo MD tramadol- refill [id number] 08/20/2014 08/20/2014 Oumar Gramajo MD tramadol- refill [id number] 08/20/2014 08/20/2014 Oumar Gramajo MD tramadol- refill [id number] 08/20/2014 08/20/2014 Oumar Gramajo MD tramadol- refill [id number] 08/20/2014 08/20/2014 Oumar Gramajo MD tramadol- refill [id number] 08/20/2014 08/20/2014 Oumar Gramajo MD tramadol- refill [id number] 08/20/2014 08/20/2014 Oumar Gramajo MD tramadol- refill [id number] 08/20/2014 08/20/2014 Oumar Gramajo MD tramadol- refill [id number] 08/20/2014 08/20/2014 Oumar Gramajo MD tramadol- refill [id number] 08/20/2014 08/20/2014 Oumar Gramajo MD tramadol- refill [id number] 08/20/2014 08/20/2014 Oumar Gramajo MD tramadol- refill [id number] 08/20/2014 08/20/2014 Oumar Gramajo MD tramadol- refill [id number] 08/20/2014 08/20/2014 Oumar Gramajo MD tramadol- refill [id number] 08/20/2014 08/20/2014 Oumar Gramajo MD tramadol- refill [id number] 08/20/2014 08/20/2014 Oumar Gramajo MD tramadol- refill [id number] 08/20/2014 08/20/2014 Oumar Gramajo [facility] Lab Report [id number] Kelechi Peacock MD 09/07/2014 09/07/2014 [facility] Preston Gramajo MD RX Request-- Sulfasalazine [id number] 09/20/2014 09/20/2014 Oumar Gramajo MD RX Request-- Sulfasalazine [id number] 09/20/2014 09/20/2014 Oumar Gramajo MD RX Request-- Sulfasalazine [id number] 09/20/2014 09/20/2014 Oumar Gramajo MD RX Request-- Sulfasalazine [id number] 09/20/2014 09/20/2014 Oumar Gramajo MD RX Request-- Sulfasalazine [id number] 09/20/2014 09/20/2014 Oumar Gramajo MD RX Request-- Sulfasalazine [id number]-zz38-7h0325w3q67a 09/20/2014 09/20/2014 Oumar Gramajo MD RX Request-- Sulfasalazine 1nyqq90v-12wa-834t-6195-w9b7l4r71m2d 09/20/2014 09/20/2014 Oumar Gramajo MD RX Request-- Sulfasalazine [id number]-eq25q18g08c7 09/20/2014 09/20/2014 Oumar Gramajo MD RX Request-- Sulfasalazine ic32vz57-cq05-25s6-dm2y-b6i43719p9oz 09/20/2014 09/20/2014 Oumar Gramajo MD RX Request-- Sulfasalazine ln3f4ks0-h24s-97s9-45am-i0ej639cqgm9 09/20/2014 09/20/2014 Oumar Gramajo MD RX Request-- Sulfasalazine [id number]-f521sz8600h4 09/20/2014 09/20/2014 Oumar Gramajo MD RX Request-- Sulfasalazine 3891ghib-3i78-22p96g74-10z0-8745-895xhg770pj8 09/20/2014 09/20/2014 Oumar Gramajo MD RX Request-- Sulfasalazine 27to9w3v-emk4-6494-m04n-57a2df1d7y02 09/20/2014 09/20/2014 Oumar Gramajo MD RX Request-- Sulfasalazine 567cg283-9134-0227-3344-yyb8bvg61swd 09/20/2014 09/20/2014 Oumar Gramajo MD RX Request-- Sulfasalazine 72h3ief9-q35v-7a8u-2232-rr336205o836 09/20/2014 09/20/2014 Oumar Gramajo MD RX Request-- Sulfasalazine [id number]-w1b0-72zhq2jxql97 09/20/2014 09/20/2014 Oumar Gramajo MD RX Request-- Sulfasalazine [id number]-p9w4-0466-y172-6819c8k72264 09/20/2014 09/20/2014 Oumar Gramajo MD RX Request-- Sulfasalazine [id number]-md6b-3ggk-d1x1-60519ub1248v 09/20/2014 09/20/2014 Oumar Gramajo MD RX Request-- Sulfasalazine 76gfb482-1dbh-942k-n28v-879unw7b7u77 09/20/2014 09/20/2014 Oumar Gramajo MD RX Request-- Sulfasalazine 645jxcl9-83p5-29xe-g0js-ic0ha7j990s6 09/20/2014 09/20/2014 Oumar Gramajo MD RX Request-- Sulfasalazine t7i56sgt-7880-601e-5z06-4t51dn6e404m 09/20/2014 09/20/2014 Oumar Gramajo MD RX Request-- Sulfasalazine 77g0991h-umr9-20gw-2ce8-7vm05k5kq0g6 09/20/2014 09/20/2014 Oumar Gramajo MD RX Request-- Sulfasalazine 429px645-7bc3-8395-x275-c0ch9ro5i07k 09/20/2014 09/20/2014 Oumar Gramajo MD RX Request-- Sulfasalazine 6jl918hb-9166-3dou-gyyz-32y5t8p1c770 09/20/2014 09/20/2014 Oumar Gramajo MD RX Request-- Sulfasalazine 8146z4vf-6292-3a6q-hh2n-3ok31eq64cu0 09/20/2014 09/20/2014 Oumar Gramajo MD RX Request-- Sulfasalazine [id number]-e959-5aa0-2292-326w5668099g 09/20/2014 09/20/2014 Oumar Gramajo MD RX Request-- Sulfasalazine 749823rc-i084-2373-1h81-7p2s0y4rm9b9 09/20/2014 09/20/2014 Oumar Gramajo MD RX Request-- Naproxen a11brx62-phir-5wc8-v2z8-n021ai5o4fi9 09/22/2014 09/22/2014 Oumar Gramajo MD RX Request-- Naproxen 959c3n7u-761c-0862-ex11-4j9f690z6jk2 09/22/2014 09/22/2014 Oumar Gramajo MD RX Request-- Naproxen 9p5br21r-00oh-2e09-2937-k588yj712csb 09/22/2014 09/22/2014 Oumar Gramajo MD RX Request-- Naproxen yf39p189-491s-8f17-7738-v3rms48l08k9 09/22/2014 09/22/2014 Oumar Gramajo MD RX Request-- Naproxen 6h198e35-v5s2-0m06-d579-3y919400um36 09/22/2014 09/22/2014 Oumar Gramajo MD RX Request-- Naproxen 5702451w-m77g-1h78-al8f-9ut294q5772h 09/22/2014 09/22/2014 Oumar Gramajo MD RX Request-- Naproxen 151x3ou3-16y3-6g93-5w3o-h1420t485257 09/22/2014 09/22/2014 Oumar Gramajo MD RX Request-- Naproxen 798dn823-163i-5eez-r72y-e4mpu7z1f7uu 09/22/2014 09/22/2014 Oumar Gramajo MD RX Request-- Naproxen rs32z69y-5u68-9jkt-f32n-3z7u7145h86s 09/22/2014 09/22/2014 Oumar Gramajo MD RX Request-- Naproxen 35a61167-55jk-15wj-x9d6-l0z053uy11oj 09/22/2014 09/22/2014 Oumar Gramajo MD RX Request-- Naproxen lj94t7j8-81b1-46nn-w1q7-pf537m967744 09/22/2014 09/22/2014 Oumar Gramajo MD RX Request-- Naproxen 9wqo156e-a5z9-5865-87z6-119qu2p1y04l 09/22/2014 09/22/2014 Oumar Gramajo MD RX Request-- Naproxen 92f93415-12c5-7405-16a2-9217009480x4 09/22/2014 09/22/2014 Oumar Gramajo MD RX Request-- Naproxen 59v14c74-6642-064a-x157-6d0yk7253u89 09/22/2014 09/22/2014 Oumar Gramajo MD RX Request-- Naproxen jr96f2c3-b03a-6v5g-6952-93r19r1ma371 09/22/2014 09/22/2014 Oumar Gramajo MD RX Request-- Naproxen 095z0395-0p05-1h3t-5v9w-76r1657ve244 09/22/2014 09/22/2014 Oumar Gramajo MD RX Request-- Naproxen 8w9y57c4-rle6-346t-9855-238789420416 09/22/2014 09/22/2014 Oumar Gramajo MD RX Request-- Naproxen 3pwcx137-7396-93q3-35q6-avrqh5h84234 09/22/2014 09/22/2014 Oumar Gramajo MD RX Request-- Naproxen 01u093b5-8s45-6co3-4l36-14h2jh29z8k4 09/22/2014 09/22/2014 Oumar Gramajo MD RX Request-- Naproxen u47sur54-k2s8-7o80-7044-47d561fj2zn4 09/22/2014 09/22/2014 Oumar Gramajo MD RX Request-- Naproxen neu4915w-6bwg-0640-77da-cowc15o0j4f7 09/22/2014 09/22/2014 Oumar Gramajo MD RX Request-- Naproxen 88ofls16-q04l-6835-5600-pzayq429gq51 09/22/2014 09/22/2014 Oumar Gramajo MD RX Request-- Naproxen h49545qn-x984-3i00-fzu6-36iw305e1a7y 09/22/2014 09/22/2014 Oumar Gramajo MD RX Request-- Naproxen 3ix41j7w-7003-88n5-474d-aq8vo49c691i 09/22/2014 09/22/2014 Oumar Gramajo MD RX Request-- Naproxen u3rzj018-t041-0g60-d808-d230434w6jfe 09/22/2014 09/22/2014 Oumar Gramajo MD RX Request-- Naproxen t1102d6u-5at6-9i7d-50v1-g5g718463425 09/22/2014 09/22/2014 Oumar Gramajo MD Refill- Naproxen 155aa431-hz4m-3714-g5hl-rpd98488v296 09/24/2014 09/24/2014 Oumar Gramajo MD Refill- Naproxen [id number]-yrv7-5428-lw5z-1410s4022562 09/24/2014 09/24/2014 Oumar Gramajo MD Refill- Naproxen 4w41d1k7-g412-6l13-q8ji-176v30s1p50r 09/24/2014 09/24/2014 Oumar Gramajo MD Refill- Naproxen i1f0b1a4-ua02-5qk0-w279-5q88g3nz4503 09/24/2014 09/24/2014 Oumar Gramajo MD Refill- Naproxen t055k007-6049-597c-802t-7e8p30o00h84 09/24/2014 09/24/2014 Oumar Gramajo MD Refill- Naproxen l1263tf3-ugz6-241e-u62m-33544563i23a 09/24/2014 09/24/2014 Oumar Gramajo MD Refill- Naproxen b8p70340-81gq-3v66-7z72-p473cb703897 09/24/2014 09/24/2014 Oumar Gramajo MD Refill- Naproxen 752oy948-0cd3-1xzo-p68f-10714sbt6187 09/24/2014 09/24/2014 Oumar Gramajo MD Refill- Naproxen 7741ry56-2710-829o-bea2-7l2b6c2l69p1 09/24/2014 09/24/2014 Oumar Gramajo MD Refill- Naproxen 9yt70cj6-58x5-03qp-259s-3s445hhj5b00 09/24/2014 09/24/2014 Oumar Gramajo MD Refill- Naproxen 1wh20hwb-pa16-37rg-d446-775wux551x02 09/24/2014 09/24/2014 Oumar Gramajo MD Refill- Naproxen 22h1035w-5939-2u86-zmu2-7s9f3101s6a9 09/24/2014 09/24/2014 Oumar Gramajo MD Refill- Naproxen k4o23z82-n497-7m28-7923-q8717014d321 09/24/2014 09/24/2014 Oumar Gramajo MD Refill- Naproxen 530vr49z-7qvc-11fb-60lm-z03s0092d5y3 09/24/2014 09/24/2014 Oumar Gramajo MD Refill- Naproxen [id number]9655pz8t976 09/24/2014 09/24/2014 Oumar Gramajo MD Refill- Naproxen x80jb3k0-j052-7907-dx66-0w2ws24cs47k 09/24/2014 09/24/2014 Oumar Gramajo MD Refill- Naproxen foe5y419-98a5-02f5-0410-69kz60r20g14 09/24/2014 09/24/2014 Oumar Gramajo MD Refill- Naproxen 828awi5t-06w8-048t-7383-196lk5y5uw1o 09/24/2014 09/24/2014 Oumar Gramajo MD Refill- Naproxen b4966hv6-73vf-2706-5gk3-28w7xb95m7l1 09/24/2014 09/24/2014 Oumar Gramajo MD Refill- Naproxen 03e5i78g-r73m-5594-i8wi-62bq0d4t33up 09/24/2014 09/24/2014 Oumar Gramajo MD Refill- Naproxen 9qcy6pj6-76o7-71l1-b439-6uq56m8q141c 09/24/2014 09/24/2014 Oumar Gramajo MD Refill- Naproxen s6en9045-89e4-5k02-d97r-979p50k27i81 09/24/2014 09/24/2014 Oumar Gramajo MD Refill- Naproxen i7u79391-u108-1vzm-s03e-lf05iyux6t2f 09/24/2014 09/24/2014 Oumar Gramajo MD Refill- Naproxen t7x9626v-5157-2v91-jzx2-8lv306h814li 09/24/2014 09/24/2014 Oumar Gramajo MD Refill- Naproxen 18k0d429-2522-89ll-ht7v-u4074kt5063y 09/24/2014 09/24/2014 Oumar Gramajo MD Refill- Naproxen 2o64e90e-ulcm-0xib-8713-543r4rs49jlw 09/24/2014 09/24/2014 Oumar Gramajo MD DEXA 4319my5f-614a-6vu9-l47j-8621a70p5h15 10/15/2014 10/15/2014 Oumar Gramajo MD DEXA 6365w7b3-zvnh-2696-c509-z6q09of04055 10/15/2014 10/15/2014 Oumar Gramajo MD DEXA 1187ywv7-0187-10xz-5057-pkbp59yf08o9 10/15/2014 10/15/2014 Oumar Gramajo MD DEXA 863r490f-5nic-99yz-lq0y-24hhd7d2qk98 10/15/2014 10/15/2014 Oumar Gramajo MD DEXA 1ptd0rd1-l8q3-0s25-4573-5eq5z29qt706 10/15/2014 10/15/2014 Oumar Gramajo MD DEXA 53uadt0w-a4u0-4026-h973-3qlg6817m3m9 10/15/2014 10/15/2014 Oumar Gramajo MD DEXA 53m94vdl-plm5-4d21-sw95-j26412i0oq93 10/15/2014 10/15/2014 Oumar Gramajo MD DEXA 9tx62b4o-dm16-88h5-5445-gt2k2kul141f 10/15/2014 10/15/2014 Oumar Gramajo MD DEXA 31z28k55-514l-05y8-1pfy-d1e43o296v22 10/15/2014 10/15/2014 Oumar Gramajo MD DEXA [id number]-8cs3-4192r6j24f97 10/15/2014 10/15/2014 Oumar Gramajo MD DEXA 6m533475-10n8-8385-r78m-f1u68rnx1v76 10/15/2014 10/15/2014 Oumar Gramajo MD DEXA 2cq684ra-h26i-3r35-3qzv-q803h9092ib7 10/15/2014 10/15/2014 Oumar Gramajo MD DEXA a7j5etuk-9nzt-0899-j680-m07h5742po2z 10/15/2014 10/15/2014 Oumar Gramajo MD [facility] 7g66ok93-1k8o-1kq4-q6dt-g5ri4228w397 10/15/2014 10/15/2014 Oumar Gramajo MD [facility] 34l512q7-8sy4-55cx-4za8-504x1hxq1247 10/15/2014 10/15/2014 Oumar Gramajo MD [facility] [id number]-z074-01823424978n 10/15/2014 10/15/2014 Oumar Gramajo MD [facility] 9did86q7-nl0c-429e-z98x-256o81207kp0 10/15/2014 10/15/2014 Oumar Gramajo MD [facility] f33q0950-q217-6syi-n8c4-96i0gi590otz 10/15/2014 10/15/2014 Oumar Gramajo MD [facility] 1jgop4iw-0760-29l6-c180-8j899xmqs58d 10/15/2014 10/15/2014 Oumar Gramajo MD [facility] 3144j70h-47hc-6fv0-ylyh-02e68252b0l8 10/15/2014 10/15/2014 Oumar Gramajo MD [facility] 6f3cg9l4-4k01-6m9p-6519-b329m09740gh 10/15/2014 10/15/2014 Oumar Gramajo MD [facility] 6697n770-03mk-01c3-4v93-4v6eb7b55c04 10/15/2014 10/15/2014 Oumar Gramajo MD [facility] 35ein52s-32nk-37cz-2377-53kr65y60uy1 10/15/2014 10/15/2014 Oumar Gramajo MD [facility] 01mo9720-7as9-6499-m49w-54asmp2uq70u 10/15/2014 10/15/2014 Oumar Gramajo MD [facility] ld55bkti-2453-7xx2-8851-y8m46lfa57ev 10/15/2014 10/15/2014 Oumar Gramajo MD [facility] 5e6j352b-48jd-1oax-glr4-327h6548c671 10/15/2014 10/15/2014 Oumar Gramajo MD DEXA f67wu108-uz4v-0994-63ui-1lqb7yss8dsm 10/15/2014 10/15/2014 Oumar Gramajo MD DEXA 8g7m6vok-xf78-192a-2s96-2cp6mgeh8741 10/15/2014 10/15/2014 Oumar Gramajo MD DEXA [id number]-5eg0-r028-12m8267x41b9 10/15/2014 10/15/2014 Oumar Gramajo MD DEXA 7f16n30n-r3w5-9b2z-i508-b2j43kp02592 10/15/2014 10/15/2014 Oumar Gramajo MD DEXA [id number]-q5pi-fnk4v6358672 10/15/2014 10/15/2014 Oumar Gramajo MD DEXA 6177866g-2o69-92k0-9i5p-m5w0638w974m 10/15/2014 10/15/2014 Oumar Gramajo MD DEXA 0958vn0c-5u4c-477a-3ksz-v623di2k9etl 10/15/2014 10/15/2014 Oumar Gramajo MD DEXA sw774g78-n18j-9e02-6tr6-164bg79p3104 10/15/2014 10/15/2014 Oumar Gramajo MD DEXA [id number]-vss8-b233311xb432 10/15/2014 10/15/2014 Oumar Gramajo MD DEXA e10lwl6r-i2n7-5av7-k32i-tgf00792t997 10/15/2014 10/15/2014 Oumar Gramajo MD DEXA [id number]-wyf23u9cc25f 10/15/2014 10/15/2014 Oumar Gramajo MD [facility] [id number]-z444-755h589jki12 10/15/2014 10/15/2014 Oumar Gramajo MD [facility] q0f31l83-pm99-6002-z6lu-39vhfqd54646 10/15/2014 10/15/2014 Oumar Gramajo MD [facility] 794aq350-4c5z-55o1-8d4s-092fx5c07x66 10/15/2014 10/15/2014 Oumar Gramajo MD [facility] 5lu61rvq-bn9t-6740-2509-056hhdo61060 10/15/2014 10/15/2014 Oumar Gramajo MD [facility] 38v279u3-8136-6a90-lc22-f850699ii15b 10/15/2014 10/15/2014 Oumar Gramajo MD [facility] t2s4gw4d-fx58-589d-8br0-ex7si6928m5u 10/15/2014 10/15/2014 Oumar Gramajo MD [facility] [id number]-1892-t0q490r00p89 10/15/2014 10/15/2014 Oumar Gramajo MD MRI [facility] [id number]-33f5u7579cf4 10/15/2014 10/15/2014 Oumar Gramajo MD MRI [facility] [id number]-tzsf-1uw7-9vr6-83ns93332709 10/15/2014 10/15/2014 Oumar Gramajo MD MRI [facility] 807vtopc-wq76-3441jd78-0018-6d4j-1u1o7921efh0 10/15/2014 10/15/2014 Oumar Gramajo MD Follow up--End of Nov f78vhqx9-2d61-5313-0468-f1t3a00685aq 11/22/2014 11/22/2014 Oumar Gramajo MD Follow up--End of Nov 80k63633-b577-2w21-1nyw-2qj77t009r45 11/22/2014 11/22/2014 Oumar Gramajo MD Follow up--End of Nov 689i5s64-tynk-13yf-o371-99xa4s8kx634 11/22/2014 11/22/2014 Oumar Gramajo MD Follow up--End of Nov 78s7p9fy-4z6w-6ch4-4423-458xj595q086 11/22/2014 11/22/2014 Oumar Gramajo MD Follow up--End of Nov [id number]-9n65-[id number] 11/22/2014 11/22/2014 Oumar Gramajo MD Follow up--End of Nov [id number]-v01a-[id number] 11/22/2014 11/22/2014 Oumar Gramajo MD Follow up--End of Nov hl3qo377-r758-77x0-k712-ed28419cju33 11/22/2014 11/22/2014 Oumar Gramajo MD Follow up--End of Nov 29pu1h92-9bro-0m12-453e-87to39smpr25 11/22/2014 11/22/2014 Oumar Gramajo MD Follow up--End of Nov [id number] 11/22/2014 11/22/2014 Oumar Gramajo MD Follow up--End of Nov 2d5o50i8-rt46-2tnw-j95y-05419l0o0594 11/22/2014 11/22/2014 Oumar Gramajo MD Follow up--End of Nov [id number] 11/22/2014 11/22/2014 Oumar Gramajo MD Follow up--End of Nov 264nr5gu-[id number] 11/22/2014 11/22/2014 Oumar Gramajo MD Follow up--End of Nov [id number]-2g22-50ym-[id number] 11/22/2014 11/22/2014 Oumar Gramajo MD Follow up--End of Nov wi1g0689-i85j-02yu-910f-7w7v1g38g338 11/22/2014 11/22/2014 Oumar Gramajo MD Follow up--End of Nov [id number]-0980-g7278128f07n 11/22/2014 11/22/2014 Oumar Gramajo MD Follow up--End of Nov [id number]-7v9l-gi71-30shh7bc6938 11/22/2014 11/22/2014 Oumar Gramajo MD Follow up--End of Nov [id number]-q6iv-0k0l5nqz7l49 11/22/2014 11/22/2014 Oumar Gramajo MD Follow up--End of Nov [id number]-45u2-81np-kqi15557i3j8 11/22/2014 11/22/2014 Oumar Gramajo MD Follow up--End of Nov 52tip71p-94y4-6oiz-62ml-zth3yj89h782 11/22/2014 11/22/2014 Oumar Gramajo MD Follow up--End of Nov 30v0phb2-zm30-3zir-o73u-28823dwr9voh 11/22/2014 11/22/2014 Oumar Gramajo MD Follow up--End of Nov [id number]-54m1-051m-[id number] 11/22/2014 11/22/2014 Oumar Gramajo MD Follow up--End of Nov [id number]-[id number] 11/22/2014 11/22/2014 Oumar Gramajo MD Add on 01/06 mt5j66c0-52my-9f98-m5l2-6w7m6360044y 01/05/2015 01/05/2015 Oumar Gramajo MD Add on 01/06 8w339j23-1vv9-6j46-ev32-5mh85e5o9147 01/05/2015 01/05/2015 Oumar Gramajo MD Add on 01/06 83862ys9-g603-99o2-9rq5-uij6t554d43k 01/05/2015 01/05/2015 Oumar Gramajo MD Add on 01/06 3469h24l-90s9-355s-cby9-l3441039l202 01/05/2015 01/05/2015 Oumar Gramajo MD Add on 01/06 [id number]-zf23-03h8-nj48-2958r5j70x73 01/05/2015 01/05/2015 Oumar Gramajo MD Add on 01/06 1p3f5m8g-bz80-8951-dms2-4j394tu04833 01/05/2015 01/05/2015 Oumar Gramajo MD Add on 01/06 [id number]-ygl6-0152-r04e-0064y395am8z 01/05/2015 01/05/2015 Oumar Gramajo MD Add on 01/06 3m91f954-i2w3-5bi6-n8ca-927r25k7e686 01/05/2015 01/05/2015 Oumar Gramajo MD Add on 01/06 sx1c13a2-4267-7899-u4e6-3923yc0uy43r 01/05/2015 01/05/2015 Oumar Gramajo MD Add on 01/06 n3dx0qam-6354-4rxr-81oo-y2u1v968pp06 01/05/2015 01/05/2015 Oumar Gramajo MD Add on 01/06 dtw12yyb-8x1h-4413-94k6-iw506xhswlcj 01/05/2015 01/05/2015 Oumar Gramajo MD Add on 01/06 22snh4ro-2822-69eq-7tdn-580wtrad1tv4 01/05/2015 01/05/2015 Oumar Gramajo MD Add on 01/06 s22c7176-5941-55e4-39t7-l138340srjn3 01/05/2015 01/05/2015 Oumar Gramajo MD Add on 01/06 d32y8928-u696-4090-v4rc-654sk4znxx6c 01/05/2015 01/05/2015 Oumar Gramajo MD Add on 01/06 6p3e3d42-r721-9776-q425-y72x8f06e0u4 01/05/2015 01/05/2015 Oumar Gramajo MD Add on 01/06 30569j2w-v8zr-3690-9927-dz2z3gj240q7 01/05/2015 01/05/2015 Oumar Gramajo MD Add on 01/06 55b88mxk-z6n3-2j65-1vc2-4869r1ow02q3 01/05/2015 01/05/2015 Oumar Gramajo MD Add on 01/06 110k64v1-3t3g-790e-q6z7-e10i4t37d957 01/05/2015 01/05/2015 Oumar Gramajo MD Add on 01/06 5i191jz6-i493-0p75-e35z-077s7x26h045 01/05/2015 01/05/2015 Oumar Gramajo MD Add on 01/06 [id number]-zm4d-352u-b69n-42f64s1485fq 01/05/2015 01/05/2015 Oumar Gramajo MD Add on 01/06 mr779fya-692n-127a-693g-bs7l46309655 01/05/2015 01/05/2015 Oumar Gramajo MD f/u 2134k7g9-l7i1-35i1-72q2-zn4i79k91k90 01/06/2015 01/06/2015 Oumar Gramajo MD f/u jv32u24m-rc3l-20z2-7398-19ui0od6i61v 01/06/2015 01/06/2015 Oumar Gramajo MD f/u n219b3r4-jyw3-2997-99k4-36uthsaq8x34 01/06/2015 01/06/2015 Oumar Gramajo MD f/u 737phk87-5s7o-7z39-6cp1-qi9f34m8ss6e 01/06/2015 01/06/2015 Oumar Gramajo MD f/u 371uucl8-7s4d-1866-31fr-292258qj5hf7 01/06/2015 01/06/2015 Oumar Gramajo MD f/u 2266xq40-d5d9-5733-n213-7q40zq1366p7 01/06/2015 01/06/2015 Oumar Gramajo MD f/u [id number]-w628-9063x3019i46 01/06/2015 01/06/2015 Oumar Gramajo MD f/u 6l9287y0-vw4s-0467-rjm8-969qh9r40248 01/06/2015 01/06/2015 Oumar Gramajo MD f/u 8pvl9z56-58e4-86g3-2192-05lf2hcs83xh 01/06/2015 01/06/2015 Oumar Gramajo MD f/u 7f6965a2-a69q-5547-228h-720h0mrcge9f 01/06/2015 01/06/2015 Oumar Gramajo MD f/u 6088n131-3ctv-4441-h686-904qk7688j64 01/06/2015 01/06/2015 Oumar Gramajo MD f/u r7uh57h4-ubl5-02x6-1o7b-4p08cl8l5a1i 01/06/2015 01/06/2015 Oumar Gramajo MD f/u [id number]-g908-9lq8503ns4vf 01/06/2015 01/06/2015 Oumar Gramajo MD f/u 87n62r61-25l7-286p-pp01-5i3d339al2at 01/06/2015 01/06/2015 Oumar Gramajo MD f/u 98yto113-yz91-92mx-j192-[id number] 01/06/2015 01/06/2015 Oumar Gramajo MD f/u m92q261y-[id number]-885r3ya5f4rr 01/06/2015 01/06/2015 Oumar Gramajo MD f/u [id number]-u7uy-93ec8iztt6ch 01/06/2015 01/06/2015 Oumar Gramajo MD f/u 4xdu32gs-ai69-1f40-idyf-3a719e683k76 01/06/2015 01/06/2015 Oumar Gramajo MD f/u [id number]-xo5n-58dk65ia57st 01/06/2015 01/06/2015 Oumar Gramajo MD f/u 2ccir7tw-579e-3662-ylrn-r9q05xr8n3s7 01/06/2015 01/06/2015 Oumar Gramajo MD DEXA [id number]-5bs99rb548rj 01/06/2015 01/06/2015 Oumar Gramajo MD DEXA [id number]-[id number] 01/06/2015 01/06/2015 Oumar Gramajo MD DEXA [id number]-qk35-x9q534196a0d 01/06/2015 01/06/2015 Oumar Gramajo MD DEXA [id number]-09to-w87rh57378j3 01/06/2015 01/06/2015 Oumar Gramajo MD DEXA [id number] 01/06/2015 01/06/2015 Oumar Gramajo MD DEXA [id number]-v8i4-86hn3878m0ov 01/06/2015 01/06/2015 Oumar Gramajo MD DEXA [id number]-p49e0d9vec5f 01/06/2015 01/06/2015 Oumar Gramajo MD DEXA [id number]-kr0c-22g57g5tt91z 01/06/2015 01/06/2015 Oumar Gramajo MD DEXA [id number]-45gs-rv88-6x1ucy66j19q 01/06/2015 01/06/2015 Oumar Gramajo MD DEXA [id number] 01/06/2015 01/06/2015 Oumar Gramajo MD DEXA [id number]-a90t-h277848tq2f3 01/06/2015 01/06/2015 Oumar Gramajo MD DEXA [id number]-0753-v8783c94v2mn 01/06/2015 01/06/2015 Oumar Gramajo MD DEXA [id number]-7h7b-rxh63304q2ue 01/06/2015 01/06/2015 Oumar Gramajo MD DEXA [id number] 01/06/2015 01/06/2015 Oumar Gramajo MD DEXA [id number]-[id number] 01/06/2015 01/06/2015 Oumar Gramajo MD DEXA [id number] 01/06/2015 01/06/2015 Oumar Gramajo MD DEXA 91t34s24-[id number]-gumt-70upz2awxnm9 01/06/2015 01/06/2015 Oumar Gramajo MD DEXA h34a3l7w-cgn0-618z-7d19-38vzk51g779t 01/06/2015 01/06/2015 Oumar Gramajo MD DEXA [id number]-[id number] 01/06/2015 01/06/2015 Oumar Gramajo MD DEXA [id number] 01/06/2015 01/06/2015 Oumar Gramajo MD DEXA [id number] 01/06/2015 01/06/2015 Oumar Gramajo MD Records Request [id number] 01/06/2015 01/06/2015 Oumar Gramajo MD Records Request [id number] 01/06/2015 01/06/2015 Oumar Gramajo MD Records Request [id number] 01/06/2015 01/06/2015 Oumar Gramajo MD Records Request [id number] 01/06/2015 01/06/2015 Oumar Gramajo MD Records Request [id number] 01/06/2015 01/06/2015 Oumar Gramajo MD Records Request [id number] 01/06/2015 01/06/2015 Oumar Gramajo MD Records Request [id number] 01/06/2015 01/06/2015 Oumar Gramajo MD Records Request [id number] 01/06/2015 01/06/2015 Oumar Gramajo MD Records Request [id number] 01/06/2015 01/06/2015 Oumar Gramajo MD Records Request [id number] 01/06/2015 01/06/2015 Oumar Gramajo MD Records Request [id number] 01/06/2015 01/06/2015 Oumar Gramajo MD Records Request [id number] 01/06/2015 01/06/2015 Oumar Gramajo MD Records Request [id number] 01/06/2015 01/06/2015 Oumar Gramajo MD Records Request [id number] 01/06/2015 01/06/2015 Oumar Gramajo MD Records Request [id number] 01/06/2015 01/06/2015 Oumar Gramajo MD Records Request [id number] 01/06/2015 01/06/2015 Oumar Gramajo MD Records Request [id number] 01/06/2015 01/06/2015 Oumar Gramajo MD Records Request [id number] 01/06/2015 01/06/2015 Oumar Gramajo MD Records Request [id number] 01/06/2015 01/06/2015 Oumar Gramajo MD Records Request [id number] 01/06/2015 01/06/2015 Oumar Gramajo MD Records Request [id number] 01/06/2015 01/06/2015 Oumar Gramajo MD RX Dispense Issue [id number] 01/07/2015 01/07/2015 Oumar Gramajo MD RX Dispense Issue [id number] 01/07/2015 01/07/2015 Oumar Gramajo MD RX Dispense Issue [id number] 01/07/2015 01/07/2015 Oumar Gramajo MD RX Dispense Issue [id number] 01/07/2015 01/07/2015 Oumar Gramajo MD RX Dispense Issue [id number] 01/07/2015 01/07/2015 Oumar Gramajo MD RX Dispense Issue [id number] 01/07/2015 01/07/2015 Oumar Gramajo MD RX Dispense Issue [id number] 01/07/2015 01/07/2015 Oumar Gramajo MD RX Dispense Issue [id number] 01/07/2015 01/07/2015 Oumar Gramajo MD RX Dispense Issue [id number] 01/07/2015 01/07/2015 Oumar Gramajo MD RX Dispense Issue [id number] 01/07/2015 01/07/2015 Oumar Gramajo MD RX Dispense Issue [id number] 01/07/2015 01/07/2015 Oumar Gramajo MD RX Dispense Issue [id number] 01/07/2015 01/07/2015 Oumar Gramajo MD RX Dispense Issue [id number] 01/07/2015 01/07/2015 Oumar Gramajo MD RX Dispense Issue [id number] 01/07/2015 01/07/2015 Oumar Gramajo MD RX Dispense Issue [id number] 01/07/2015 01/07/2015 Oumar Gramajo MD RX Dispense Issue [id number] 01/07/2015 01/07/2015 Oumar Gramajo MD RX Dispense Issue [id number] 01/07/2015 01/07/2015 Oumar Gramajo MD RX Dispense Issue [id number] 01/07/2015 01/07/2015 Oumar Gramajo MD RX Dispense Issue [id number] 01/07/2015 01/07/2015 Oumar Gramajo MD RX Dispense Issue [id number] 01/07/2015 01/07/2015 Oumar Gramajo MD RX Dispense Issue [id number] 01/07/2015 01/07/2015 Oumar Gramajo MD Pain Mgmt [id number] 03/08/2015 03/08/2015 Oumar Gramajo MD Pain Mgmt [id number] 03/08/2015 03/08/2015 Oumar Gramajo MD Pain Mgmt [id number] 03/08/2015 03/08/2015 Oumar Gramajo MD Pain Mgmt [id number] 03/08/2015 03/08/2015 Oumar Gramajo MD Pain Mgmt [id number] 03/08/2015 03/08/2015 Oumar Gramajo MD Pain Mgmt [id number] 03/08/2015 03/08/2015 Oumar Gramajo MD Pain Mgmt [id number] 03/08/2015 03/08/2015 Oumar Gramajo MD Pain Mgmt [id number] 03/08/2015 03/08/2015 Oumar Gramajo MD Pain Mgmt [id number] 03/08/2015 03/08/2015 Oumar Gramajo MD Pain Mgmt [id number] 03/08/2015 03/08/2015 Oumar Gramajo MD Pain Mgmt [id number]-[id number] 03/08/2015 03/08/2015 Oumar Gramajo MD Pain Mgmt [id number] 03/08/2015 03/08/2015 Oumar Gramajo MD Pain Mgmt g15w6dg0-0734-177e-qr45-60n1087u6e12 03/08/2015 03/08/2015 Oumar Gramajo MD Pain Mgmt 97m16l94-2i6y-1q37-5226-759936m37pj0 03/08/2015 03/08/2015 Oumar Gramajo MD Pain Mgmt 1572181x-0070-862u-b499-z9k9c848j110 03/08/2015 03/08/2015 Oumar Gramajo MD Pain Mgmt u99739f2-17m5-4wa7-2e9u-02wwn6g329jf 03/08/2015 03/08/2015 Oumar Gramajo MD Pain Mgmt 4yfr1l4y-f409-2279-f477-q0115961552o 03/08/2015 03/08/2015 Oumar Gramajo MD Pain Mgmt 09de6nlr-fz1k-29tw-4n48-7939eg5m82f8 03/08/2015 03/08/2015 Oumar Gramajo MD Pain Mgmt 8n0kxxcw-nn28-20v9-ace8-789467vjv401 03/08/2015 03/08/2015 Oumar Gramajo MD Refill [id number]-p0h3-2y4e0203061v 05/11/2015 05/11/2015 Oumar Gramajo MD Refill 213oj9f0-7601-25sc-2x3o-o5641m294770 05/11/2015 05/11/2015 Oumar Gramajo MD Refill 4fkk9qa6-piov-5a54-lw73-p8k13308r8ru 05/11/2015 05/11/2015 Oumar Gramajo MD Refill 326xd783-l500-53cy-e493-9450g9g5fy65 05/11/2015 05/11/2015 Oumar Gramajo MD Refill q0x640l1-nr31-1398-102b-94j69g602rd1 05/11/2015 05/11/2015 Oumar Gramajo MD Refill 939w22s4-gb08-638q-ajqi-61r0670070b9 05/11/2015 05/11/2015 Oumar Gramajo MD Refill 9s46e4ws-31s5-1962-v3u2-u88z66f4n5s6 05/11/2015 05/11/2015 Oumar Gramajo MD Refill jb4b94bj-7my4-1o73-4y05-0vv941h5yiis 05/11/2015 05/11/2015 Oumar Gramajo MD Refill 559ltxlx-5c26-5vwl7u90-1iik-c9qi-h1zm11g05241 05/11/2015 05/11/2015 Oumar Gramajo MD Refill 9h98np06-c4go-00j3-m59u-zt2b1g2602pg 05/11/2015 05/11/2015 Oumar Gramajo MD Refill l036gx27-y3ou-489j-k47s-v5m1013my0yc 05/11/2015 05/11/2015 Oumar Gramajo MD Refill z77aatp7-5880-7v76-1564-39u9h8234l33 05/11/2015 05/11/2015 Oumar Gramajo MD Refill 9776gsb0-i981-61u4-3c5v-7400csy11293 05/11/2015 05/11/2015 Oumar Gramajo MD Refill 3qc2348j-869t-6049-5r39-je129y29k3r6 05/11/2015 05/11/2015 Oumar Gramajo MD Refill k5d0o1sp-1p3h-33w7-9g84-ru051wex93i4 05/11/2015 05/11/2015 Oumar Gramajo MD Refill 494my38l-n6xi-3s01-k908-e26ik2h01u59 05/11/2015 05/11/2015 Oumar Gramajo MD Refill 42z18694-6a53-14s5-3664-vbb9i157907b 05/11/2015 05/11/2015 Oumar Gramajo MD Refill 90164788-5k12-35p1-7jfg-mvkm9o75aquy 05/11/2015 05/11/2015 Oumar Gramajo MD Refill [id number]-7s80-92e4-1s59s43wx8aa 05/11/2015 05/11/2015 Oumar Gramajo MD RX Request-- Tramadol dfh623b4-3r2i-2er6-xnng-55tp7m73v800 05/17/2015 05/17/2015 Oumar Gramajo MD RX Request-- Tramadol g66300h2-0488-3qq0-m870-d7743684old0 05/17/2015 05/17/2015 Oumar Gramajo MD RX Request-- Tramadol [id number]-l702-8k29-r747-14e129r80863 05/17/2015 05/17/2015 Oumar Gramajo MD RX Request-- Tramadol [id number]-ewjm-[id number] 05/17/2015 05/17/2015 Oumar Gramajo MD RX Request-- Tramadol 1v11w7er-49lm-14qc-w62j-mir090q6h028 05/17/2015 05/17/2015 Oumar Gramajo MD RX Request-- Tramadol 7600tk4d-7g60-1rt3-266y-ru42j23629y8 05/17/2015 05/17/2015 Oumar Gramajo MD RX Request-- Tramadol 2e614i63-fn67-5917-y1as-o7w8zlcl8cm3 05/17/2015 05/17/2015 Oumar Gramajo MD RX Request-- Tramadol mz3f784a-3434-7625-1468-72k024w11w22 05/17/2015 05/17/2015 Oumar Gramajo MD RX Request-- Tramadol [id number] 05/17/2015 05/17/2015 Oumar Gramajo MD RX Request-- Tramadol [id number]-8815-2efv-b3ws5s619r39 05/17/2015 05/17/2015 Oumar Gramajo MD RX Request-- Tramadol [id number]-0437-9789-d78n-12ua8d514yuo 05/17/2015 05/17/2015 Oumar Gramajo MD RX Request-- Tramadol [id number]-k18f-j41vz794swq0 05/17/2015 05/17/2015 Oumar Gramajo MD RX Request-- Tramadol 191376us-528a-[id number]-214u2e4336r6 05/17/2015 05/17/2015 Oumar Gramajo MD RX Request-- Tramadol n783psyp-4r07-04jz-m8hh-9zy2sl3zj248 05/17/2015 05/17/2015 Oumar Gramajo MD RX Request-- Tramadol [id number]-083i-1q33-b385o92125h8 05/17/2015 05/17/2015 Oumar Gramajo MD RX Request-- Tramadol 37j21r23-9143-075y-n29d-i1kw98sg66gv 05/17/2015 05/17/2015 Oumar Gramajo MD RX Request-- Tramadol m68jb4e6-d1dh-0469-96m4-51kjrd50l86f 05/17/2015 05/17/2015 Oumar Gramajo MD RX Request-- Tramadol o88v4ii2-e15q-91uj-20lh-149w8j833084 05/17/2015 05/17/2015 Oumar Gramajo MD RX Request-- Tramadol 67853a69-5tw3-715s-rprg-sey9862p70od 05/17/2015 05/17/2015 Oumar Gramajo MD f/u f3mgtf2h-l82s-6738-xu0y-7w29i064te22 06/14/2015 06/14/2015 Oumar Gramajo MD f/u tfk3v62z-86s5-316t-tphx-37t421278g4x 06/14/2015 06/14/2015 Oumar Gramajo MD f/u 81z8k757-0842-2163-44o4-488a3c925sx3 06/14/2015 06/14/2015 Oumar Gramajo MD f/u 8c4sh9k2-5763-0393-q682-dq35s006544i 06/14/2015 06/14/2015 Oumar Gramajo MD f/u jdqm6ibp-9180-08v0-301s-rv2fbr474501 06/14/2015 06/14/2015 Oumar Gramajo MD f/u 9ap31k79-38v7-0298-gpj4-gau9207m062a 06/14/2015 06/14/2015 Oumar Gramajo MD f/u 45z7i202-2p23-4r96-020l-29m57yb905k1 06/14/2015 06/14/2015 Oumar Gramajo MD f/u 471s28qc-3z84-2t4m-sl61-8p900q7184b9 06/14/2015 06/14/2015 Oumar Gramajo MD f/u 70q43w63-fv42-18jc-006l-e5z4g33m0tz1 06/14/2015 06/14/2015 Oumar Gramajo MD f/u 02a7745k-b67m-3455-52e7-30f5786549r5 06/14/2015 06/14/2015 Oumar Gramajo MD f/u 46v79k34-0y80-141p-8714-1l980h3l8s5t 06/14/2015 06/14/2015 Oumar Gramajo MD f/u 2d7q2439-3ty0-6ja3-j2xd-1ek2mi0db9p6 06/14/2015 06/14/2015 Oumar Gramajo MD f/u 1k532682-9855-4pv7-02lt-7fi68417205z 06/14/2015 06/14/2015 Oumar Gramajo MD f/u k9x31410-ly5y-1893-9490-n6v4xj6146x6 06/14/2015 06/14/2015 Oumar Gramajo MD f/u 4x0t2355-z224-8xf2-03e3-345p79p2e7b3 06/14/2015 06/14/2015 Oumar Gramajo MD f/u tl45z5ju-5985-1p46-98zg-8c7l3e1jvw6t 06/14/2015 06/14/2015 Oumar Gramajo MD f/u 3244592v-1057-60ko-k20n-7i9a079brn05 06/14/2015 06/14/2015 Oumar Gramajo MD f/u 6l33429w-1n92-3t8u-l249-17w7we703pfr 06/14/2015 06/14/2015 Oumar Gramajo MD f/u k9i34q7r-zlwt-9841-0932-624n5t27b4a4 06/14/2015 06/14/2015 Oumar Gramajo MD DEXA 3328x827-f1l1-5762-m77f-5y839744k874 07/27/2015 07/27/2015 Oumar Gramajo MD DEXA 33uv01g9-9525-993l-z984-198ef68q1786 07/27/2015 07/27/2015 Oumar Gramajo MD DEXA k5743ue8-3343-007i-y626-3u43gn8904hd 07/27/2015 07/27/2015 Oumar Gramajo MD DEXA 78l8e62i-oi3f-8200-j55p-x39f89f325g6 07/27/2015 07/27/2015 Oumar Gramajo MD DEXA fem31yk8-u8de-0t75-7905-5u326u58k1o4 07/27/2015 07/27/2015 Oumar Gramajo MD DEXA p0b35i5g-070l-4c1g-4488-w6v3e4s20020 07/27/2015 07/27/2015 Oumar Gramajo MD DEXA 54u4ed20-6w6q-0y8m-2113-4d829p6q342t 07/27/2015 07/27/2015 Oumar Gramajo MD DEXA 49u9m667-55d3-71b6-o737-4mscn677502u 07/27/2015 07/27/2015 Oumar Gramajo MD DEXA fw00z77k-m9ky-673x-j35f-0j7mh24u2g4u 07/27/2015 07/27/2015 Oumar Gramajo MD DEXA k0568n35-3a80-376b-z015-65i337093vsq 07/27/2015 07/27/2015 Oumar Gramajo MD DEXA 2072135j-7zr1-0862-2419-t52av952087e 07/27/2015 07/27/2015 Oumar Gramajo MD DEXA 99636j5u-h466-676w-aj43-13368566gw8s 07/27/2015 07/27/2015 Oumar Gramajo MD DEXA 112za65t-88i0-15q6-6898-z49wcv6lp890 07/27/2015 07/27/2015 Oumar Gramajo MD DEXA efe30hek-maj8-4vu9-7911-230b57759s84 07/27/2015 07/27/2015 Oumar Gramajo MD DEXA -3680-6058-g84x-4043272q3336 07/27/2015 07/27/2015 Oumar Gramajo MD DEXA 5518nm9s-89ys-3gm3-q386-og1c72f2oczw 07/27/2015 07/27/2015 Oumar Gramajo MD DEXA 83l5itzm-hi1y-164e-18cz-1x19t3llj56d 07/27/2015 07/27/2015 Oumar Gramajo MD DEXA 1488g9m7-gaah-9tv0-527s-p2j1h9f611to 07/27/2015 07/27/2015 MD PRAFUL Huang l9ug157d-545u-0w0n-uu53-6519t3ru60ia 07/27/2015 07/27/2015 Oumar Gramajo MD f/u 200r63s3-8k1b-2867-hr78-no1086dx7153 10/04/2015 10/04/2015 Oumar Gramajo MD f/u 10570601-n03j-416g-949r-7144vo4523p0 10/04/2015 10/04/2015 Oumar Gramajo MD f/u 5385933e-4695-130c-k929-vs1d69853ao7 10/04/2015 10/04/2015 Oumar Gramajo MD f/u 67qx8khm-8ncq-04tm-q2z7-4o6axc522z68 10/04/2015 10/04/2015 Oumar Gramajo MD f/u 979zp58r-pr0v-75v2-sd70-t778s61h7218 10/04/2015 10/04/2015 Oumar Gramajo MD f/u 762091sx-i156-60o3-8dq5-012dm742927a 10/04/2015 10/04/2015 Oumar Gramajo MD f/u 8a4sd7m7-1302-9766-l0x4-s44vf144857d 10/04/2015 10/04/2015 Oumar Gramajo MD f/u wr738ve8-3fol-25r6-o54g-69d23t9c1x6q 10/04/2015 10/04/2015 Oumar Gramajo MD f/u b1x529nb-0p7e-246o-t682-67089kfj101c 10/04/2015 10/04/2015 Oumar Gramajo MD f/u 039n1eq3-b046-36ac-0mz9-8r56yxa24m40 10/04/2015 10/04/2015 Oumar Gramajo MD f/u x847k5c2-r4b4-3e57-fmbx-c7z0i51a6h30 10/04/2015 10/04/2015 Oumar Gramajo MD f/u 860d5897-98x2-36j0-1989-920k52mgw383 10/04/2015 10/04/2015 Oumar Gramajo MD f/u 948246k8-15u0-5q25-n18t-2b2g7362v1dm 10/04/2015 10/04/2015 Oumar Gramajo MD f/u u3i553f2-5884-1626-l5t9-b3z8pcu26b8n 10/04/2015 10/04/2015 Oumar Gramajo MD f/u h52cwh18-8r8x-67a3-6704-6988x6q7xj7b 10/04/2015 10/04/2015 Oumar Gramajo MD f/u 4y3dw61p-1uv2-8e77-q2e1-4155y675002r 10/04/2015 10/04/2015 Oumar Gramajo MD f/u t68tc345-zua9-254j-81lt-d3l729b52528 10/04/2015 10/04/2015 Oumar Gramajo MD labs a7925t6g-08ij-06f3-419t-25n3592c3h16 10/04/2015 10/04/2015 Oumar Gramajo MD labs 911845yt-tkw5-1n24-w761-k5262ns622gu 10/04/2015 10/04/2015 Oumar Gramajo MD labs ho791986-186o-8b22-2e83-298b6ql3175v 10/04/2015 10/04/2015 Oumar Gramajo MD labs h21w9430-7lu5-23h2-x0se-pt06738h8428 10/04/2015 10/04/2015 Oumar Gramajo MD labs 64p4o02z-u2ps-7lvy-0116-5ugl9n76y800 10/04/2015 10/04/2015 Oumar Gramajo MD labs 556ix71w-8224-4j37-outx-72n410i96eys 10/04/2015 10/04/2015 Oumar Gramajo MD labs 4o25y881-0m72-3v9c-5130-kke1a5134r1o 10/04/2015 10/04/2015 Oumar Gramajo MD labs 387soum9-up50-4f22-e281-tu45if3214w2 10/04/2015 10/04/2015 Oumar Gramajo MD labs 9yc6258m-w071-1469-0cv7-1g9061410o1n 10/04/2015 10/04/2015 Oumar Gramajo MD labs f3s090i4-14b9-19p9-k0c7-rxk7hc3563w4 10/04/2015 10/04/2015 Oumar Gramajo MD labs q8n3kwx5-h1hy-0ze2-356u-6391q906x8u8 10/04/2015 10/04/2015 Oumar Gramajo MD labs k0mc3384-c85r-2356-9836-14nu46qypee5 10/04/2015 10/04/2015 Oumar Gramajo MD labs 7638701h-5rq2-132b-m5p8-ev4p3vw452o9 10/04/2015 10/04/2015 Oumar Gramajo MD labs 292063o8-lln2-4131-4yzx-h18l4n94zakh 10/04/2015 10/04/2015 Oumar Gramajo MD labs 6830451v-1107-164l-i024-6obln5053a4m 10/04/2015 10/04/2015 Oumar Gramajo MD labs 4443c72x-5t21-2482-pwum-f633t989665g 10/04/2015 10/04/2015 Oumar Gramajo MD labs 0b4r598u-95t4-7z5b-875a-6n90ag4hf9h9 10/04/2015 10/04/2015 Oumar Gramajo MD labs ob9r7942-86p9-7y62-pl34-at05600rjd6t 10/04/2015 10/04/2015 Oumar Gramajo MD Refill- Ultram 116l8899-h419-08z6-l709-287hh924x620 12/15/2015 12/15/2015 Oumar Gramajo MD Refill- Ultram kb76v3a7-l908-4al8-3966-i42q2nte97e0 12/15/2015 12/15/2015 Oumar Gramajo MD Refill- Ultram 4948tlcd-t193-8cd9s618-1ez2-91bg-xy472l890g3e 12/15/2015 12/15/2015 Oumar Gramajo MD Refill- Ultram x8myb042-8f2u-2877-037h-3t4j177bx320 12/15/2015 12/15/2015 Oumar Gramajo MD Refill- Ultram 9a332cni-k7su-08h3-gi43-5e70z9rb3iwy 12/15/2015 12/15/2015 Oumar Gramajo MD Refill- Ultram 669uec6o-u70l-5083-9790-44he7g99a169 12/15/2015 12/15/2015 Oumar Gramajo MD Refill- Ultram 03707bg3-14j1-7r11-c3bv-6u62qyn14l99 12/15/2015 12/15/2015 Oumar Gramajo MD Refill- Ultram 4846l2c3-250u-462u-dr64-549ey78n9wow 12/15/2015 12/15/2015 Oumar Gramajo MD Refill- Ultram or859048-17a2-15a9-g436-p0681o9gc2z5 12/15/2015 12/15/2015 Oumar Gramajo MD Refill- Ultram z075yqm8-59fk-5l2f-zd30-n0j311y01276 12/15/2015 12/15/2015 Oumar Gramajo MD Refill- Ultram 17x5465j-02d2-0l41-m8o7-898t819yrx77 12/15/2015 12/15/2015 Oumar Gramajo MD Refill- Ultram 34995y22-w4yj-5616-p5v5-049af3383te2 12/15/2015 12/15/2015 Oumar Gramajo MD Refill- Ultram hq92z6g5-i7f5-288v-6790-5da259y06576 12/15/2015 12/15/2015 Oumar Gramajo MD Refill- Ultram cf215h53-339r-4uq1-0929-932k9699051i 12/15/2015 12/15/2015 Oumar Gramajo MD Refill- Ultram 30c16c11-q176-3w0z-5jf6-8h827i8870yn 12/15/2015 12/15/2015 Oumar Gramajo MD Refill- Ultram 6r37m7x8-q1y6-3199-0kob-391ufu99nckl 12/15/2015 12/15/2015 Oumar Gramajo MD [facility] FU qi3j6322-o9w7-9e28-c42u-308572g1x349 01/05/2016 01/05/2016 Oumar Gramajo MD 3 [facility] FU rlbry538-6v38-2960-p669-7tgs3981y48t 01/05/2016 01/05/2016 Oumar Gramajo MD 3 [facility] FU 25174113-y6kq-9cv4-z903-372org034ho9 01/05/2016 01/05/2016 Oumar Gramajo MD 3 [facility] FU -j69d-656r-z712-73fh0wdr4i6g 01/05/2016 01/05/2016 Oumar Gramajo MD 3 [facility] FU 2m610xc9-6924-8eys-dn21-b7h7hte8n103 01/05/2016 01/05/2016 Oumar Gramajo MD 3 [facility] FU 959o7v4p-g537-990i-79e4-600dc4w6eh38 01/05/2016 01/05/2016 Oumar Gramajo MD 3 [facility] FU r25fn09a-j71h-1gzm-3243-v4ehl1ta9k04 01/05/2016 01/05/2016 Oumar Gramajo MD 3 [facility] FU l2j26upv-8119-31t9-g2n9-6646f5a3c7a2 01/05/2016 01/05/2016 Oumar Gramajo MD 3 [facility] FU 4181k216-2ld9-16ck-whb5-801hd04za2v3 01/05/2016 01/05/2016 Oumar Gramajo MD 3 [facility] FU ik2h4d8v-370j-1b50-xn6f-86wr60058mn5 01/05/2016 01/05/2016 Oumar Gramajo MD 3 [facility] FU h3620s97-7509-6o6c-7q8f-o719gu5087f1 01/05/2016 01/05/2016 Oumar Gramajo MD [facility] 47i639l5-rd1l-5812-47d3-0gz6304q4e4y 01/05/2016 01/05/2016 Oumar Gramajo MD 3 [facility] FU 05704205-9502-47pj-el70-e1g2r6saw1ka 01/05/2016 01/05/2016 Oumar Gramajo MD 3 [facility] FU 160y0k8e-u3c3-438r-xt6d-5xou9u997j56 01/05/2016 01/05/2016 Oumar Gramajo MD 3 [facility] FU ua04kzp9-v120-962b-0lrq-99q1wo916d08 01/05/2016 01/05/2016 Oumar Gramajo MD tramadol c9dp5s9h-91r7-28cp-y6yk-g09766996x2m 03/28/2016 03/28/2016 Oumar Gramajo MD tramadol 6g3842xl-097k-2h61-s6k2-li930n41q8fq 03/28/2016 03/28/2016 Oumar Gramajo MD tramadol 9s790553-l7m2-6wf9-i556-oab781sn31r7 03/28/2016 03/28/2016 Oumar Gramajo MD tramadol 133vri7n-kt90-1q6a-5635-59u3px60o2b2 03/28/2016 03/28/2016 Oumar Gramajo MD tramadol qks091iv-3615-899b-l580-0287dh4lv9g9 03/28/2016 03/28/2016 Oumar Gramajo MD tramadol 315f898b-7e16-0404-k6z9-q3cre7lm4w74 03/28/2016 03/28/2016 Oumar Gramajo MD tramadol 190d0620-73n0-60cw-2v4w-ust4u3amu4o1 03/28/2016 03/28/2016 Oumar Gramajo MD tramadol 557z0cds-a3g9-2uj4-2628-3992ky31mh67 03/28/2016 03/28/2016 Oumar Gramajo MD tramadol 97zs6428-k4o1-33sr-c1m2-23781h2n5wq0 03/28/2016 03/28/2016 Oumar Gramajo MD tramadol q2973c7f-1d70-98w7-l80j-3081a1539lyk 03/28/2016 03/28/2016 Oumar Gramajo MD tramadol 12i9010v-g53b-5qbf-0l13-q9577q30z600 03/28/2016 03/28/2016 Oumar Gramajo MD tramadol 50gt4u6y-n2ts-613a-053t-96596w5t4165 03/28/2016 03/28/2016 Oumar Gramajo MD tramadol 84gd24p2-413d-8k4m-3a98-4ak71f0h957f 03/28/2016 03/28/2016 Oumar Gramajo MD tramadol a01j8641-f98l-3733-7uro-19epro5yr2z7 03/28/2016 03/28/2016 Oumar Gramajo MD MRI 93k47e77-0sy8-18e5-obv0-ep97ia629dk9 03/29/2016 03/29/2016 Oumar Gramajo MD MRI o2a833b3-4054-7925-gh31-09453zv29683 03/29/2016 03/29/2016 Oumar Gramajo MD MRI aw73zcw6-4857-158w-563a-6j03lm20rurm 03/29/2016 03/29/2016 Oumar Gramajo MD MRI 87s552s9-0389-260w-283e-225p86ym787c 03/29/2016 03/29/2016 Oumar Gramajo MD MRI 627vd5gl-25v9-6eke-isg4-17qs6bv4s7h5 03/29/2016 03/29/2016 Oumar Gramajo MD MRI 11w44a50-62bt-41o8-2n02-bs420ec720nl 03/29/2016 03/29/2016 Oumar Gramajo MD MRI 61kpw316-13t7-90o2-9048-00vh554xuazx 03/29/2016 03/29/2016 Oumar Gramajo MD MRI 0x7k3831-65x7-2x3m-1ogq-9759437o4f80 03/29/2016 03/29/2016 Oumar Gramajo MD MRI 3eig15c9-3666-24zd-3go1-l288xmmsw0j5 03/29/2016 03/29/2016 Oumar Gramajo MD MRI xt600ohs-46ed-4532-7ysh-133680cn3e01 03/29/2016 03/29/2016 Oumar Gramajo MD MRI 9o134fo8-ozz1-4e0c-4du6-wi7x3r9351s4 03/29/2016 03/29/2016 Oumar Gramajo MD MRI 0l521675-cbg7-8hxz-9403-jo7w2578i94m 03/29/2016 03/29/2016 Oumar Gramajo MD MRI 5d5n978n-6la4-8484-hu3j-o0o37910yo37 03/29/2016 03/29/2016 Oumar Gramajo MD 3 [facility] FU 9m38l2c6-9b09-6886-37p6-25ausylixf30 04/18/2016 04/18/2016 Oumar Gramajo MD [facility] FU 77r59p8z-jt48-1z03-659h-fb2383291j49 04/18/2016 04/18/2016 Oumar Gramajo MD [facility] FU jm29tfs9-k6q9-37pp-39a9-y7x855587x35 04/18/2016 04/18/2016 Oumar Gramajo MD [facility] FU 9lr832zh-4r9y-3293-57er-55lm3049k990 04/18/2016 04/18/2016 Oumar Gramajo MD [facility] FU r6l8k28w-g792-2187-a86m-p754sihlt631 04/18/2016 04/18/2016 Oumar Gramajo MD [facility] FU 4062e304-5128-587f-2a16-6717lxp1e0h5 04/18/2016 04/18/2016 Oumar Gramajo MD 3 [facility] FU e2i4z1a7-02j8-28so-6i7c-1dol005mj0ri 04/18/2016 04/18/2016 Oumar Gramajo MD [facility] FU 97f07po3-8o0n-8593-2d9v-4wm929z40403 04/18/2016 04/18/2016 Oumar Gramajo MD [facility] FU 14pd2721-7523-62c8-9438-29961309o45b 04/18/2016 04/18/2016 Oumar Gramajo MD 3 [facility] FU 37ns65zw-604l-4h6b-[id number] 04/18/2016 04/18/2016 Oumar Gramajo MD 3 MTH FU [id number] 04/18/2016 04/18/2016 Oumar Gramajo MD 3 MTH FU [id number] 04/18/2016 04/18/2016 Oumar Gramajo MD [facility] [id number] 04/20/2016 04/20/2016 Oumar Gramajo MD [facility] rx [id number] 04/20/2016 04/20/2016 Oumar Gramajo MD [facility] rx [id number] 04/20/2016 04/20/2016 Oumar Gramajo MD [facility] rx [id number] 04/20/2016 04/20/2016 Oumar Gramajo MD [facility] rx [id number] 04/20/2016 04/20/2016 Oumar Gramajo MD [facility] rx [id number] 04/20/2016 04/20/2016 Oumar Gramajo MD [facility] rx [id number] 04/20/2016 04/20/2016 Oumar Gramajo MD [facility] rx [id number] 04/20/2016 04/20/2016 Oumar Gramajo MD [facility] rx [id number] 04/20/2016 04/20/2016 Oumar Gramajo MD [facility] rx [id number] 04/20/2016 04/20/2016 Oumar Gramajo MD [facility] rx [id number] 04/20/2016 04/20/2016 Oumar Gramajo MD [facility] [id number] 04/20/2016 04/20/2016 Oumar Gramajo MD Refill- Tramadol [id number] 07/04/2016 07/04/2016 Oumar Gramajo MD Refill- Tramadol [id number] 07/04/2016 07/04/2016 Oumar Gramajo MD Refill- Tramadol [id number] 07/04/2016 07/04/2016 Oumar Gramajo MD Refill- Tramadol [id number] 07/04/2016 07/04/2016 Oumar Gramajo MD Refill- Tramadol [id number] 07/04/2016 07/04/2016 Oumar Gramajo MD Refill- Tramadol [id number] 07/04/2016 07/04/2016 Oumar Gramajo MD Refill- Tramadol [id number] 07/04/2016 07/04/2016 Oumar Gramajo MD Refill- Tramadol [id number] 07/04/2016 07/04/2016 Oumar Gramajo MD Refill- Tramadol [id number] 07/04/2016 07/04/2016 Oumar Gramajo MD Refill- Tramadol [id number] 07/05/2016 07/05/2016 Oumar Gramajo MD Refill- Tramadol [id number] 07/05/2016 07/05/2016 Oumar Gramajo MD Refill- Tramadol [id number] 07/05/2016 07/05/2016 Oumar Gramajo MD Refill- Tramadol [id number] 07/05/2016 07/05/2016 Oumar Gramajo MD Refill- Tramadol [id number] 07/05/2016 07/05/2016 Oumar Gramajo MD Refill- Tramadol [id number] 07/05/2016 07/05/2016 Oumar Gramajo MD Refill- Tramadol [id number] 07/05/2016 07/05/2016 Oumar Gramajo MD Refill- Tramadol [id number] 07/05/2016 07/05/2016 Oumar Gramajo MD NS APPT 07/18/16 [id number] 07/18/2016 07/18/2016 MD OSCAR Huang APPT 07/18/16 [id number] 07/18/2016 07/18/2016 Oumar Gramajo MD NS APPT 07/18/16 [id number] 07/18/2016 07/18/2016 Oumar Gramajo MD NS APPT 07/18/16 [id number] 07/18/2016 07/18/2016 Oumar Gramajo MD NS APPT 07/18/16 [id number] 07/18/2016 07/18/2016 Oumar Gramajo MD NS APPT 07/18/16 [id number] 07/18/2016 07/18/2016 Oumar Gramajo MD NS APPT 07/18/16 [id number] 07/18/2016 07/18/2016 Oumar Gramajo MD 3 MTH FU [id number] 08/08/2016 08/08/2016 Oumar Gramajo MD 3 MTH FU [id number] 08/08/2016 08/08/2016 Oumar Gramajo MD 3 MTH FU [id number] 08/08/2016 08/08/2016 Oumar Gramajo MD 3 MTH FU [id number] 08/08/2016 08/08/2016 Oumar Gramajo MD 3 MTH FU [id number] 08/08/2016 08/08/2016 Oumar Gramajo MD 3 MTH FU [id number] 08/08/2016 08/08/2016 Oumar Gramajo MD TRAMADOL REFILL [id number] 09/27/2016 09/27/2016 Oumar Gramajo MD TRAMADOL REFILL [id number] 09/27/2016 09/27/2016 Oumar Gramajo MD TRAMADOL REFILL [id number] 09/27/2016 09/27/2016 Oumar Gramajo MD TRAMADOL REFILL [id number] 09/27/2016 09/27/2016 Oumar Gramajo MD Refill- Tramadol [id number] 10/25/2016 10/25/2016 Oumar Gramajo MD Refill- Tramadol [id number] 10/25/2016 10/25/2016 Oumar Gramajo MD Refill- Tramadol [id number] 10/25/2016 10/25/2016 Oumar Gramajo MD [id number] 12/17/2016 12/17/2016 Oumar Gramajo MD [id number] 12/17/2016 12/17/2016 Oumar Gramajo MD [id number] 12/18/2016 12/18/2016 Oumar Gramajo [facility] [id number] MAGALY BENITEZ MD 02/13/2018 02/17/2018 [facility] Discharged Inpatient (obs) [id number] MAGALY BENITEZ MD 06/30/2018 07/01/2018 [facility] Discharged Inpatient [id number] MAGALY BENITEZ MD 09/13/2018 09/16/2018 [facility] Discharged Inpatient [id number] SKYLAR GARZA MD 12/29/2018 01/02/2019 [facility] Departed Emergency Room [id number] BAMBI BEEBE MD 03/04/2019 03/04/2019 [facility] Procedures Procedure Code Date Perfomer Comments Source INSERTION OF INFUSION DEV INTO SUP VENA CAVA, PERC APPROACH [id number] 12/31/2018 LOYDA [facility] Computed tomography of chest with contrast [id number] 12/30/2018 [facility] X-ray of chest, two views [id number] 09/14/2018 [facility] Computed tomography of lumbar spine with contrast [id number] 02/13/2018 FAHNBULLEH [facility] Ultrasound, renal [id number] 02/13/2018 [facility] Assessment and Plan No Data Provided for This Section Plan of Care Plan of Care Date Source Discharge Date 03/04/19 6:07pm Disposition HOME, SELF-CARE Condition at Discharge Stable Instructions/Education Provided Joint Pain Sprains - Knee Forms Provided Work/School Excuse Prescriptions See Medication Section Referrals DIMPLE MATAMOROS Address: [address] [place] [address] [place] [address] CLINTON GAMA MD Address: [address] [place] [address] [address] [place] [address] Additional Instructions/Education 1. follow up with orthopedic doctor in 1-2 days without fail 2. return to ed as needed 3. knee immobilizer and walker/crutches 03/04/2019 [facility] Discharge Date 07/01/18 10:08am Disposition HOME, SELF-CARE Instructions/Education Provided COPD Prescriptions See Medication Section Referrals MAGALY BENITEZ MD (Pulmonary) Order Date: 1 Week Entered Date: 07/01/2018 8:24am Address: [place] [address] Additional Instructions/Education Diet as tolerated precautions for coumadin if any symptoms persist return to the ER 07/01/2018 [facility] Social History Social History Date Source Social History Problem Response Recorded Date/Time Onset Date Status Hx Psychiatric Problems No 02/13/2018 4:53pm Not Applicable Not Applicable Hx Eating Disorder No 02/13/2018 4:53pm Not Applicable Not Applicable Hx Substance Use Disorder No 02/13/2018 4:53pm Not Applicable Not Applicable Hx Depression No 02/13/2018 4:53pm Not Applicable Not Applicable Hx Alcohol Use No 02/13/2018 4:53pm Not Applicable Not Applicable Hx Substance Use Treatment No 02/13/2018 4:53pm Not Applicable Not Applicable Hx Physical Abuse No 02/13/2018 4:53pm Not Applicable Not Applicable Smoking Status Start Date Stop Date Current every day smoker 03/04/2019 [facility] [facility] History ElementQualifiersDate Reported Tobacco Use: . Are you a:: current smoker , How often do you smoke cigarettes?: every day, How many cigarettes a day do you smoke?: 11-20, How soon after you wake up do you smoke your first cigarette?: 6-30 min, Are you interested in quitting?: Thinking about quitting Dec 17, 2016 Marital Status: single. Dec 17, 2016 Caffeine: yes. frequency:, cups/day, 1-5 Dec 17, 2016 Exercise: no. Dec 17, 2016 Alcohol: no. Dec 17, 2016 Occupation: . retired Dec 17, 2016 12/17/2016 Oumar Gramajo Family History Value Date Source Relationship Condition Age at Onset Recorded Date/Time 35 Father FH: colon cancer Not Recorded 02/19/2017 3:11am 03/04/2019 [facility] Relationship Condition Age at Onset Recorded Date/Time 35 Father FH: colon cancer Not Recorded 02/19/2017 3:11am 07/01/2018 [facility] Advance Directives Order Name Results Value Date Source Advance Directives Advance Directives Directive Response Recorded Date/Time Does the patient have an advance directive? No 12/30/18 12:53am If yes, is advance directive on file with [facility]? No 09/12/18 3:31pm If not on file with [facility] will patient provide a copy? No 09/12/18 3:31pm Do you have a Directive to Physician? No 03/04/19 3:00pm Do you have a Medical Power of Fight Manager? No 03/04/19 3:00pm Do you have an out of hospital Do Not Resuscitate Order? No 03/04/19 3:00pm Do you have any special needs we should be aware of? No 03/04/19 3:00pm Do you have a support person here with you today? Yes 03/04/19 3:00pm Did patient receive Notice of Privacy Practices? Yes 03/04/19 3:00pm Did patient receive patient rights and responsibilities? Yes 03/04/19 3:00pm 03/04/2019 [facility] Advance Directives Advance Directives Directive Response Recorded Date/Time Does the patient have an advance directive? No 06/30/18 5:02am If yes, is advance directive on file with [facility]? No 06/30/18 5:02am If not on file with [facility] will patient provide a copy? No 06/30/18 5:02am Do you have a Directive to Physician? No 06/29/18 10:23pm Do you have a Medical Power of Fight Manager? No 06/29/18 10:23pm Do you have an out of hospital Do Not Resuscitate Order? No 06/29/18 10:23pm Do you have any special needs we should be aware of? No 06/29/18 10:23pm Do you have a support person here with you today? Yes 06/29/18 10:23pm Did patient receive Notice of Privacy Practices? Yes 06/29/18 10:23pm Did patient receive patient rights and responsibilities? Yes 06/29/18 10:23pm 07/01/2018 [facility] Functional Status No Data Provided for This Section
--- OUTSIDE RECORDS SUMMARY | 2019-07-18 09:02 | XMS REPORT ---
Author Author Preston Gramajo Organization [employer] Address Unknown Phone Unavailable Care Team Providers Care Residential Field Manager Name Role Phone Preston Gramajo CP Unavailable [...] Right shoulder pain M25.511 Active Problem Other shelter (current) drug therapy Z79.899 Active Problem Age-related osteoporosis without current pathological fracture M81.0 Active Problem Primary osteoarthritis involving multiple joints M15.0 Active Medications Medication Code System Code Instructions Start Date End Date Status Dosage [facility]am [facility] 23916988938 7.5 MG Orally Once a day June 12, 2019 Active 1 tablet Results No Known Results Summary Purpose eClinicalWorks Submission
--- OUTSIDE RECORDS SUMMARY | 2019-07-18 09:02 | XMS REPORT ---
Author Author Abida Ma [facility] [employer] Address Unknown Phone Unavailable Care Team Providers Care Dielectric Press Operator Name Role Phone Abida Ma Unavailable Allergies No Known Allergies Problems Problem Type Condition Code Onset Dates Condition Status Problem Shoulder pain, left M25.512 Active Problem Pain in right shoulder M25.511 Active Problem Rheumatoid arthritis of multiple sites without rheumatoid factor M06.09 Active Assessment Rheumatoid arthritis of multiple sites without rheumatoid factor M06.09 Active Problem Cigarette nicotine dependence, uncomplicated F17.210 Active Problem Trochanteric bursitis of left hip M70.62 Active Problem Vitamin D deficiency, unspecified E55.9 Active Problem Trochanteric bursitis, right hip M70.61 Active Problem Right shoulder pain M25.511 Active Problem Other long term care social worker (current) drug therapy Z79.899 Active Problem Age-related osteoporosis without current pathological fracture M81.0 Active Problem Primary osteoarthritis involving multiple joints M15.0 Active Medications Medication Code System Code Instructions Start Date End Date Status Dosage Tramadol [facility] [id number] 50 mg orally every 6 hours prn Active 2 tablets Results No Known Results Summary Purpose eClinicalWorks Submission
--- OUTSIDE RECORDS SUMMARY | 2019-07-18 09:02 | XMS REPORT ---
Author Author Abida Ma [facility] [employer] Address Unknown Phone Unavailable Care Team Providers Care Esl Instructor Name Role Phone Abida Ma Unavailable Allergies [...] Right shoulder pain M25.511 Active Problem Other [facility] (current) drug therapy Z79.899 Active Problem Age-related osteoporosis without current pathological fracture M81.0 Active Problem Primary osteoarthritis involving multiple joints M15.0 Active Medications No Known Medications Results No Known Results Summary Purpose eClinicalWorks Submission
--- OUTSIDE RECORDS SUMMARY | 2019-07-18 09:03 | XMS REPORT ---
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 Active Problem Age-related osteoporosis without current pathological fracture M81.0 Active Problem Primary osteoarthritis involving multiple joints M15.0 Active Medications Medication Code System Code Instructions Start Date End Date Status Dosage Tramadol [facility] 99808872190 50 mg orally every 6 hours prn Jul 09, 2019 Aug 08, 2019 Active 2 tablets Meloxicam ND 01179917221 7.5 MG Orally Once a day Jul 09, 2019 Active 1 tablet PredniSONE ND 38356725642 5 MG Orally Once a day Jul 09, 2019 Active 1 tablet Results No Known Results Summary Purpose eClinicalWorks Submission
[2019-07-18] MEDS ORDERED: ALBUTEROL SULF 0.083% NEB SOLN 3 ML NEB NEB STA (09:23)
[2019-07-18] MEDS ORDERED: IPRATROPIUM BROMIDE 0.02% 2.5 ML NEB NEB ONE (09:30)
[2019-07-18 09:32] LABS: BASOPHILS # (AUTO) 0.1 (0.0-0.1); BASOPHILS % 0.5 % (0.0-1.0); EOSINOPHILS # (AUTO) 0.3 (0.0-0.4); EOSINOPHILS % 2.3 % (0.0-6.0); HEMATOCRIT 46.2 % (34.2-44.1); HEMOGLOBIN 14.5 g/dL (12.0-16.0); LYMPHOCYTES # (AUTO) 5.7 (1.0-3.2); LYMPHOCYTES % 38.2 % (18.0-39.1); MEAN CORPUSCULAR HEMOGLOBIN 31.3 pg (28-32); MEAN CORPUSCULAR HGB CONC 31.4 g/dL (31-35); MEAN CORPUSCULAR VOLUME 99.8 fL (81-99); MONOCYTES # (AUTO) 1.3 (0.2-0.8); MONOCYTES % 8.6 % (4.4-11.3); NEUTROPHILS # (AUTO) 7.4 (2.1-6.9); NEUTROPHILS % 49.9 % (38.7-80.0); PLATELET COUNT 303 x10e3/uL (140-360); RED BLOOD COUNT 4.63 x10e6/uL (3.6-5.1); RED CELL DISTRIBUTION WIDTH 16.1 % (11.7-14.4)
--- NOTE | 2019-07-18 09:47 | NUR ---
urine to lab
[2019-07-18 09:52] LABS: ALANINE AMINOTRANSFERASE 23 IU/L (0-55); ALBUMIN 3.6 g/dL (3.5-5.0); ALKALINE PHOSPHATASE 102 IU/L (40-150); ANION GAP 13.8 mmol/L (8-16); BLOOD UREA NITROGEN 17 mg/dL (7-26); BUN/CREATININE RATIO 19 (6-25); CALCIUM 9.6 mg/dL (8.4-10.2); CARBON DIOXIDE 32 mmol/L (22-29); CHLORIDE 101 mmol/L (98-107); CREATINE KINASE 85 IU/L (29-168); EST GLOMERULAR FILTRATION RATE > 60 ML/MIN (60-); GLUCOSE 112 mg/dL (74-118); POTASSIUM 3.8 mmol/L (3.5-5.1); SODIUM 143 mmol/L (136-145)
[2019-07-18 09:54] LABS: BILIRUBIN,URINE NEGATIVE (NEGATIVE); CLARITY,URINE CLEAR (CLEAR); COLOR,URINE YELLOW (YELLOW); KETONES,URINE NEGATIVE (NEGATIVE); LEUKOCYTE ESTERASE ,URINE NEGATIVE (NEGATIVE); MAGNESIUM < 0.6 MG/DL (1.3-2.1); NITRITE,URINE NEGATIVE (NEGATIVE); PROTEIN,URINE DIPSTICK 1+ (NEGATIVE); URINE UROBILINOGEN 0.2 mg/dL (0.2 - 1)
[2019-07-18] MEDS ORDERED: MAGNESIUM SULFATE 2GM/50ML 50 ML IV ONE ×2 (10:00→21:00)
[2019-07-18 10:06] LABS: B-TYPE NATRIURETIC PEPTIDE2 72.6 pg/mL (0-100)
[2019-07-18 10:11] LABS: INR 1.22
[2019-07-18 10:12] LABS: PARTIAL THROMBOPLASTIN TIME 32.9 seconds (23.8-35.5); RBC,URINE 0-5 /HPF (0-5); WBC,URINE (MAN) 0-5 /HPF (0-5)
[2019-07-18 10:13] LABS: BACTERIA,URINE FEW /HPF; EPITHELIAL CELLS,URINE FEW /LPF
--- NOTE | 2019-07-18 10:37 | Diagnostic Imaging Report ---
EXAMINATION: CHEST SINGLE (PORTABLE) INDICATION: Cough, shortness of breath. COMPARISON: CT chest 12/30/2018 and chest radiograph 12/31/2018. FINDINGS: Exam is limited by portable technique and patient rotation. TUBES and LINES: None. LUNGS: Lungs are mildly hyperinflated. There are mild patchy opacities at the left greater than right lung bases. No evidence of lobar consolidation or pulmonary edema. Right apical pleural-parenchymal opacity, suggestive of prior granulomatous disease. PLEURA: No pleural effusion or pneumothorax. HEART AND MEDIASTINUM: The cardiomediastinal silhouette is unremarkable. BONES AND SOFT TISSUES: No acute osseous abnormality. UPPER ABDOMEN: No free air under the diaphragm. IMPRESSION: Mild patchy bibasilar opacities likely representing atelectasis. No evidence of lobar pneumonia or pulmonary edema. Emphysematous changes of the lungs. Signed by: Dr. Geoffrey Reyes MD on 07/18/2019 10:33 AM
--- OUTSIDE RECORDS SUMMARY | 2019-07-18 10:58 | XMS REPORT | Continuity of Care Document ---
Author Author [employer] Organization [employer] Address Unknown Phone Unavailable Care Team Providers Care House Designer Name Role Phone [employer] Unavailable Unavailable Problems Problem Status Onset Date Classification Date Reported Comments Source Right shoulder pain Active Problem 07/11/2019 Oumar Gramajo Rheumatoid arthritis of multiple sites without rheumatoid factor Active Problem 07/11/2019 Oumar Gramajo Primary osteoarthritis involving multiple joints Active Problem 07/11/2019 Oumar Gramajo Other custodial (current) drug therapy Active Problem 07/11/2019 Oumar [...] right hip Active Problem 07/11/2019 Oumar Gramajo [facility] current use of opiate analgesic Active Diagnosis [...] secondary, other specified sites Active Diagnosis 02/17/2015 Omuar Gramajo Rheumatoid arthritis without rheumatoid factor, multiple sites Active Diagnosis 10/05/2015 Oumar Gramajo Encounter for long-term (current) use of other high-risk medications Active Diagnosis 01/10/2016 Oumar Gramajo Need for prophylactic vaccination and inoculation against influenza Active Diagnosis 10/12/2015 Oumar Gramajo Osteoporosis Active Diagnosis 05/03/2016 Oumar Gramajo Obstructive chronic bronchitis with exacerbation Active Problem 07/01/2018 [facility] Pneumonia Active Problem 03/04/2019 [facility] Respiratory failure with hypoxia and hypercapnia Active Problem 03/04/2019 [facility] Obstructive chronic bronchitis with exacerbation Active Problem 03/04/2019 [facility] Medications Medication Details Route Status Patient Instructions [...] Mg Oral Every 12 Hours Active 02/13/2018 [facility] Prednisone 10 Mg Tab, 10 Mg Oral Active 02/13/2018 [facility] Cefdinir (Omnicef) 300 Mg Capsule, 300 Mg Oral Every 12 Hours Active 02/13/2018 [facility] Prednisone 10 Mg Tab, 10 Mg Oral Active 02/13/2018 [facility] Tramadol HCl TAKE 2 TABLETS BY MOUTH EVERY 6 HOURS Orally Active 50MG Orally every 6 hrs Ma 09/17/2017 Oumar Gramajo Vitamin D (Ergocalciferol) 1 capsule Orally Active 21411 UNIT Orally once week [place] 09/04/2017 Oumar Gramajo Prolia as directed Subcutaneous Active 60 MG/ML Subcutaneous [id number] [place] 09/04/2017 Oumar Gramajo Vitamin D (Ergocalciferol) 1 capsule Orally Active 53538 UNIT Orally once week Ma 09/04/2017 Oumar Gramajo Imuran 1 tablet Orally Active 50 MG Orally BID Ma 09/02/2017 Oumar Gramajo Prolia as directed Subcutaneous Active 60 MG/ML Subcutaneous Ma 09/02/2017 Oumar Gramajo Imuran 1 tablet Orally Active 50 MG Orally BID [place] 09/02/2017 Oumar Gramajo Imuran 1 tablet Orally Active 50 MG Orally once a day Ma 05/20/2017 Oumar Gramajo Loratadine 10 Mg Tablet Daily Active [facility] 04/09/2017 [facility] Loratadine 10 Mg Tablet, 10 Mg Oral Daily Active [facility] 04/09/2017 [facility] Benazepril , 10 Mg Oral Daily Active 02/21/2017 [facility] Warfarin Sodium (Coumadin) 5 Mg Tablet, 5 Mg Oral Daily Active 02/21/2017 [facility] Warfarin Sodium (Coumadin) 5 Mg Tablet, 5 Mg Oral Daily Active 02/21/2017 [facility] Sulfasalazine (Azulfidine) 500 Mg Tablet., 500 Mg Oral Active 02/18/2017 [facility] Sulfasalazine (Azulfidine) 500 Mg Tablet., 500 Mg Oral Active 02/18/2017 [facility] Leflunomide 1 tablet Orally Active 10 MG Orally Once a day Ma 12/17/2016 Oumar Gramajo Tramadol HCl TAKE TWO TABLETS BY MOUTH EVERY 6 HOURS Orally Active 50MG Orally every 6 hrs [place] 09/27/2016 Oumar Gramajo Boniva 1 tablet Orally Active 150 MG Orally Oncce a month [place] 04/20/2016 Oumar Gramajo Acetaminophen-Codeine #4 1 tablet as needed Orally Active 300- 60 MG Orally bid [place] 01/05/2016 Oumar Gramajo Sulfasalazine 4 tablets Orally Active 500MG Orally BID Ma 01/02/2016 Oumar Gramajo Sulfasalazine take two tablets Orally Active 500MG Orally three times a day [place] 01/18/2015 Oumar Gramajo [id number] 1 capsule Orally Active 500-50 MG Orally every 12 hrs Rik 01/06/2015 Oumar Gramajo Naproxen 1 tablet as needed Orally Active 500 MG Orally Three times a day [place] 09/22/2014 Oumar Gramajo Methotrexate 5 tablets Orally [...] Active 2 MG Orally once a day Am Oumar Gramajo Vitamin D 1 tablet Orally [...] Vitamin D (Ergocalciferol) 1 capsule Orally Active 67060 UNIT Orally once a week Adalgisa Gramajo [...] Amlodipine Besylate 5 Mg Tablet Daily Active [facility] Benazepril Hcl 10 Mg Tablet Daily Active [facility] Meloxicam 7.5 Mg Tablet Daily Active [facility] Pravastatin Daily Active [facility] Tramadol Hcl (Ultram) 50 Mg Tablet 2TID Active [facility] Warfarin Sodium 2.5 Mg Tablet Daily Active [facility] Amlodipine Besylate 5 Mg Tablet Daily Active [facility] Benazepril Hcl 10 Mg Tablet Daily Active [facility] Meloxicam 7.5 Mg Tablet Daily Active [facility] Warfarin Sodium 2.5 Mg Tablet Daily Active [facility] Allergies, Adverse Reactions, Alerts Substance Category Reaction [...] count (number/volume) 10.74 4.8 - 10.8 01/02/2019 [facility] Blood erythrocytes automated count (number/volume) 4.27 3.6 - 5.1 01/02/2019 [facility] Blood hemoglobin measurement (moles/volume) 13.3 12.0 - 16.0 01/02/2019 [facility] Automated blood hematocrit (volume fraction) 40.4 34.2 - 44.1 01/02/2019 [facility] Automated erythrocyte mean corpuscular volume 94.6 81 - 99 01/02/2019 [facility] Automated erythrocyte mean corpuscular hemoglobin (mass per erythrocyte) 31.1 28 - 32 01/02/2019 [facility] Automated erythrocyte mean corpuscular hemoglobin concentration measurement (mass/volume) 32.9 31 - 35 01/02/2019 [facility] RDW BldCo-Rto 14.2 11.7 - 14.4 01/02/2019 [facility] Automated blood platelet count (count/volume) 273 140 - 360 01/02/2019 [facility] Automated blood segmented neutrophil count as percentage of total leukocytes 82.2 38.7 - 80.0 01/02/2019 [facility] Automated blood lymphocyte count as percentage ot total leukocytes 13.1 18.0 - 39.1 01/02/2019 [facility] Automated blood monocyte count as percentage of total leukocytes 4.1 4.4 - 11.3 01/02/2019 [facility] Automated blood eosinophil count as percentage of total leukocytes 0.0 0.0 - 6.0 01/02/2019 [facility] Automated blood basophil count as percentage of total leukocytes 0.1 0.0 - 1.0 01/02/2019 [facility] IM GRANULOCYTES % 0.5 0.0 - 1.0 01/02/2019 [facility] Automated blood neutrophil count 8.8 2.1 - 6.9 01/02/2019 [facility] Blood lymphocytes count (number/volume) 1.4 1.0 - 3.2 01/02/2019 [facility] Blood monocytes automated count (number/volume) 0.4 0.2 - 0.8 01/02/2019 [facility] Automated blood eosinophil count 0.0 0.0 - 0.4 01/02/2019 [facility] Automated blood basophil count (count/volume) 0.0 0.0 - 0.1 01/02/2019 [facility] Absolute Immature Granulocyte (auto 0.05 0 - 0.1 01/02/2019 [facility] Prothrombin time (PT) in platelet poor plasma by coagulation assay 18.9 11.9 - 14.5 01/02/2019 [facility] INR in Platelet poor plasma by Coagulation assay 1.46 01/02/2019 [facility] Serum or plasma sodium measurement (moles/volume) 135 136 - 145 01/02/2019 [facility] Serum or plasma potassium measurement (moles/volume) 4.9 3.5 - 5.1 01/02/2019 [facility] Serum or plasma chloride measurement (moles/volume) 102 98 - 107 01/02/2019 [facility] Serum or plasma carbon dioxide, total measurement (moles/volume) 27 22 - 29 01/02/2019 [facility] Serum or plasma anion gap 10.9 8 - 16 01/02/2019 [facility] Serum or plasma urea nitrogen measurement (mass/volume) 29 7 - 26 01/02/2019 [facility] Serum or plasma creatinine measurement (mass/volume) 0.83 0.57 - 1.11 01/02/2019 [facility] Serum or plasma urea nitrogen/creatinine mass ratio 35 6 - 25 01/02/2019 [facility] Estimated glomerular filtration rate (GFR) determination > 60 60 01/02/2019 [facility] Glucose measurement 144 74 - 118 01/02/2019 [facility] Serum or plasma calcium measurement (mass/volume) 8.7 8.4 - 10.2 01/02/2019 [facility] Serum or plasma total bilirubin measurement (mass/volume) 0.2 0.2 - 1.2 01/01/2019 [facility] Aspartate Amino Transf (AST/SGOT) 14 5 - 34 01/01/2019 [facility] Serum or plasma alanine aminotransferase measurement (enzymatic activity/volume) 19 0 - 55 01/01/2019 [facility] Serum or plasma protein measurement (mass/volume) 6.2 6.5 - 8.1 01/01/2019 [facility] Serum or plasma albumin measurement (mass/volume) 3.0 3.5 - 5.0 01/01/2019 [facility] Plasma globulin measurement (mass/volume) 3.2 2.3 - 3.5 01/01/2019 [facility] Serum or plasma albumin/globulin mass ratio 0.9 0.8 - 2.0 01/01/2019 [facility] Serum or plasma alkaline phosphatase measurement (enzymatic activity/volume) 83 40 - 150 01/01/2019 [facility] Serum or plasma creatine kinase measurement (enzymatic activity/volume) 106 29 - 168 12/30/2018 [facility] Serum or plasma creatine kinase MB measurement (mass/volume) 2.10 0 - 5.0 12/30/2018 [facility] Troponin I measurement by highly sensitive enzyme immunoassay < 0.001 0 - 0.300 12/30/2018 [facility] Urine color determination STRAW YELLOW 12/29/2018 [facility] Urine clarity SL CLOUDY CLEAR 12/29/2018 [facility] Specific gravity of Urine by Test strip 1.030 1.010 - 1.025 12/29/2018 [facility] Urine pH measurement by automated test strip 6 5 - 7 12/29/2018 [facility] Urine leukocyte esterase detection by dipstick TRACE NEGATIVE 12/29/2018 [facility] Urine nitrite detection NEGATIVE NEGATIVE 12/29/2018 [facility] Urine protein measurement by test strip (mass/volume) 1+ NEGATIVE 12/29/2018 [facility] Urine glucose detection NEGATIVE NEGATIVE 12/29/2018 [facility] Urine ketones detection by automated test strip TRACE NEGATIVE 12/29/2018 [facility] Urine urobilinogen measurement by test strip (mass/volume) 0.2 0.2 - 1 12/29/2018 [facility] Urine total bilirubin measurement (mass/volume) NEGATIVE NEGATIVE 12/29/2018 [facility] Urine erythrocytes detection 1+ NEGATIVE 12/29/2018 [facility] Automated urine sediment leukocyte count by microscopy (number/high power field) 6-10 0 - 5 12/29/2018 [facility] Erythrocytes detection in urine sediment by light microscopy 6-10 0 - 5 12/29/2018 [facility] Bacteria detection in urine sediment by light microscopy MANY NONE 12/29/2018 [facility] Epithelial cells detection in urine sediment by light microscopy FEW NONE 12/29/2018 [facility] Urine Legionella pneumophila 1 antigen detection by immunoassay Negative Negative 12/29/2018 [facility] Activated partial thromboplastin time (aPTT) in platelet poor plasma bycoagulation assay 27.8 23.8 - 35.5 12/29/2018 [facility] Lactic Acid Level 7.9 4.5 - 19.8 12/29/2018 [facility] BNP Bld-mCnc 50.3 0 - 100 12/29/2018 [facility] Blood culture NO GROWTH AFTER 5 DAYS, FINAL REPORT 12/29/2018 [facility] Influenza virus A and B antigen identification by immunofluorescence NEGATIVE NEGATIVE 12/29/2018 [facility] Streptococcus pyogenes antigen detection in throat NEGATIVE NEGATIVE 12/29/2018 [facility] Differential Total Cells Counted 100 09/14/2018 [facility] Manual blood neutrophils/100 leukocytes 67 40 - 74 09/14/2018 [facility] Manual blood band neutrophils form/100 leukocytes 18 09/14/2018 [facility] Manual blood lymphocytes/100 leukocytes 9 19 - 48 09/14/2018 [facility] Manual blood monocytes/100 leukocytes 6 3.4 - 9.0 09/14/2018 [facility] Blood platelets count by estimate (number/volume) ADEQUATE 09/14/2018 [facility] Platelet morphology NORMAL 09/14/2018 [facility] RBC morphology NORMAL 09/14/2018 [facility] Serum or plasma thyrotropin measurement by detection limit <=0.005 miu/l (units/volume) 0.225 0.350 - 4.940 09/13/2018 [facility] Arterial blood pH measurement 7.33 7.31 - 7.41 09/12/2018 [facility] pCO2 BldA 53 41 - 51 09/12/2018 [facility] pCO2 BldA 65 80 - 105 09/12/2018 [facility] Arterial blood bicarbonate measurement (moles/volume) 28 23 - 28 09/12/2018 [facility] Arterial blood base excess by calculation 2.0 -2 - 3 - 2 09/12/2018 [facility] Arterial blood oxygen saturation measurement 90.0 95 - 98 09/12/2018 [facility] FiO2 32 09/12/2018 [facility] Manual blood eosinophil count as percentage of total leukocytes 1 0 - 7 09/12/2018 [facility] Manual basophil percentage 1 0 - 1.5 09/12/2018 [facility] Blood anisocytosis detection by light microscopy SLIGHT 09/12/2018 [facility] Automated blood basophil count (count/volume) Automated blood basophil count (count/volume) 0.0 0.0 - 0.1 07/01/2018 [facility] Automated blood basophil count as percentage of total leukocytes Automated blood basophil count as percentage of total leukocytes 0.1 0.0 - 1.0 07/01/2018 [facility] Automated blood eosinophil count Automated blood eosinophil count 0.0 0.0 - 0.4 07/01/2018 [facility] Automated blood eosinophil count as percentage of total leukocytes Automated blood eosinophil count as percentage of total leukocytes 0.0 0.0 - 6.0 07/01/2018 [facility] Automated blood hematocrit (volume fraction) Automated blood hematocrit (volume fraction) 41.7 34.2 - 44.1 07/01/2018 [facility] Automated blood lymphocyte count as percentage ot total leukocytes Automated blood lymphocyte count as percentage ot total leukocytes 14.3 18.0 - 39.1 07/01/2018 [facility] Automated blood monocyte count as percentage of total leukocytes Automated blood monocyte count as percentage of total leukocytes 3.8 4.4 - 11.3 07/01/2018 [facility] Automated blood neutrophil count Automated blood neutrophil count 8.8 2.1 - 6.9 07/01/2018 [facility] Automated blood platelet count (count/volume) Automated blood platelet count (count/volume) 268 140 - 360 07/01/2018 [facility] Automated blood segmented neutrophil count as percentage of total leukocytes Automated blood segmented neutrophil count as percentage of total leukocytes 81.4 38.7 - 80.0 07/01/2018 [facility] Automated erythrocyte mean corpuscular hemoglobin (mass per erythrocyte) Automated erythrocyte mean corpuscular hemoglobin (mass per erythrocyte) 30.8 28 - 32 07/01/2018 [facility] Automated erythrocyte mean corpuscular hemoglobin concentration measurement (mass/volume) Automated erythrocyte mean corpuscular hemoglobin concentration measurement (mass/volume) 32.6 31 - 35 07/01/2018 [facility] Automated erythrocyte mean corpuscular volume Automated erythrocyte mean corpuscular volume 94.3 81 - 99 07/01/2018 [facility] Blood erythrocytes automated count (number/volume) Blood erythrocytes automated count (number/volume) 4.42 3.6 - 5.1 07/01/2018 [facility] Blood hemoglobin measurement (moles/volume) Blood hemoglobin measurement (moles/volume) 13.6 12.0 - 16.0 07/01/2018 [facility] Blood leukocytes automated count (number/volume) Blood leukocytes automated count (number/volume) 10.77 4.8 - 10.8 07/01/2018 [facility] Blood lymphocytes count (number/volume) Blood lymphocytes count (number/volume) 1.5 1.0 - 3.2 07/01/2018 [facility] Blood monocytes automated count (number/volume) Blood monocytes automated count (number/volume) 0.4 0.2 - 0.8 07/01/2018 [facility] Estimated glomerular filtration rate (GFR) determination Estimated glomerular filtration rate (GFR) determination >60 60 07/01/2018 [facility] Glucose measurement Glucose measurement 158 74 - 118 07/01/2018 [facility] INR in Platelet poor plasma by Coagulation assay INR in Platelet poor plasma by Coagulation assay 1.02 07/01/2018 [facility] Plasma globulin measurement (mass/volume) Plasma globulin measurement (mass/volume) 3.5 2.3 - 3.5 07/01/2018 [facility] Prothrombin time (PT) in platelet poor plasma by coagulation assay Prothrombin time (PT) in platelet poor plasma by coagulation assay 12.6 11.9 - 14.5 07/01/2018 [facility] Serum or plasma alanine aminotransferase measurement (enzymatic activity/volume) Serum or plasma alanine aminotransferase measurement (enzymatic activity/volume) 28 0 - 55 07/01/2018 [facility] Serum or plasma albumin measurement (mass/volume) Serum or plasma albumin measurement (mass/volume) 3.1 3.5 - 5.0 07/01/2018 [facility] Serum or plasma albumin/globulin mass ratio Serum or plasma albumin/globulin mass ratio 0.9 0.8 - 2.0 07/01/2018 [facility] Serum or plasma alkaline phosphatase measurement (enzymatic activity/volume) Serum or plasma alkaline phosphatase measurement (enzymatic activity/volume) 112 40 - 150 07/01/2018 [facility] Serum or plasma anion gap Serum or plasma anion gap 14.0 8 - 16 07/01/2018 [facility] Serum or plasma calcium measurement (mass/volume) Serum or plasma calcium measurement (mass/volume) 9.4 8.4 - 10.2 07/01/2018 [facility] Serum or plasma carbon dioxide, total measurement (moles/volume) Serum or plasma carbon dioxide, total measurement (moles/volume) 34 22 - 29 07/01/2018 [facility] Serum or plasma chloride measurement (moles/volume) Serum or plasma chloride measurement (moles/volume) 102 98 - 107 07/01/2018 [facility] Serum or plasma creatinine measurement (mass/volume) Serum or plasma creatinine measurement (mass/volume) 0.80 0.57 - 1.11 07/01/2018 [facility] Serum or plasma potassium measurement (moles/volume) Serum or plasma potassium measurement (moles/volume) 5.0 3.5 - 5.1 07/01/2018 [facility] Serum or plasma protein measurement (mass/volume) Serum or plasma protein measurement (mass/volume) 6.6 6.5 - 8.1 07/01/2018 [facility] Serum or plasma sodium measurement (moles/volume) Serum or plasma sodium measurement (moles/volume) 145 136 - 145 07/01/2018 [facility] Serum or plasma total bilirubin measurement (mass/volume) Serum or plasma total bilirubin measurement (mass/volume) 0.5 0.2 - 1.2 07/01/2018 [facility] Serum or plasma urea nitrogen measurement (mass/volume) Serum or plasma urea nitrogen measurement (mass/volume) 22 7 - 26 07/01/2018 [facility] Serum or plasma urea nitrogen/creatinine mass ratio Serum or plasma urea nitrogen/creatinine mass ratio 28 6 - 25 07/01/2018 [facility] Red Cell Distribution Width 15.9 11.7 - 14.4 07/01/2018 [facility] IM GRANULOCYTES % 0.4 0.0 - 1.0 07/01/2018 [facility] Absolute Immature Granulocyte (auto 0.04 0 - 0.1 07/01/2018 [facility] Aspartate Amino Transf (AST/SGOT) 19 5 - 34 07/01/2018 [facility] Serum or plasma creatine kinase MB measurement (mass/volume) Serum or plasma creatine kinase MB measurement (mass/volume) 3.30 0 - 5.0 06/30/2018 [facility] Serum or plasma creatine kinase measurement (enzymatic activity/volume) Serum or plasma creatine kinase measurement (enzymatic activity/volume) 74 29 - 168 06/30/2018 [facility] Troponin I measurement by highly sensitive enzyme immunoassay Troponin I measurement by highly sensitive enzyme immunoassay 0.038 0 - 0.300 06/30/2018 [facility] Activated partial thromboplastin time (aPTT) in platelet poor plasma bycoagulation assay Activated partial thromboplastin time (aPTT) in platelet poor plasma bycoagulation assay 28.9 23.8 - 35.5 06/29/2018 [facility] B-Type Natriuretic Peptide 88.6 0 - 100 06/29/2018 [facility] Serum or plasma trough vancomycin level at trough (mass/volume) Serum or plasma trough vancomycin level at trough (mass/volume) 11.2 5.0 - 10.0 02/16/2018 [facility] Blood platelets count by estimate (number/volume) Blood platelets count by estimate (number/volume) MODERATELY INCREASED 02/16/2018 [facility] Manual blood band neutrophils form/100 leukocytes Manual blood band neutrophils form/100 leukocytes 4 02/16/2018 [facility] Manual blood lymphocytes/100 leukocytes Manual blood lymphocytes/100 leukocytes 22 19 - 48 02/16/2018 [facility] Manual blood monocytes/100 leukocytes Manual blood monocytes/100 leukocytes 5 3.4 - 9.0 02/16/2018 [facility] Manual blood neutrophils/100 leukocytes Manual blood neutrophils/100 leukocytes 69 40 - 74 02/16/2018 [facility] Platelet morphology Platelet morphology NORMAL 02/16/2018 [facility] RBC morphology RBC morphology NORMAL 02/16/2018 [facility] Differential Total Cells Counted 100 02/16/2018 [facility] Arterial blood base excess by calculation Arterial blood base excess by calculation 9.0 -2 - 3 - 2 02/13/2018 [facility] Arterial blood bicarbonate measurement (moles/volume) Arterial blood bicarbonate measurement (moles/volume) 35 23 - 28 02/13/2018 [facility] Arterial blood oxygen saturation measurement Arterial blood oxygen saturation measurement 90.0 95 - 98 02/13/2018 [facility] Arterial blood pH measurement Arterial blood pH measurement 7.34 7.31 - 7.41 02/13/2018 [facility] Arterial Blood Partial Pressure CO2 65 41 - 51 02/13/2018 [facility] Arterial Blood Partial Pressure O2 65 80 - 105 02/13/2018 [facility] Amorphous sediment detection in urine sediment by light microscopy Amorphous sediment detection in urine sediment by light microscopy RARE FEW 02/13/2018 [facility] Automated urine sediment leukocyte count by microscopy (number/high power field) Automated urine sediment leukocyte count by microscopy (number/high power field) NONE 0 - 5 02/13/2018 [facility] Bacteria detection in urine sediment by light microscopy Bacteria detection in urine sediment by light microscopy NONE NONE 02/13/2018 [facility] Coarse granular casts detection in urine sediment by light microscopy Coarse granular casts detection in urine sediment by light microscopy <5 0 02/13/2018 [facility] Epithelial cells detection in urine sediment by light microscopy Epithelial cells detection in urine sediment by light microscopy NONE NONE 02/13/2018 [facility] Erythrocytes detection in urine sediment by light microscopy Erythrocytes detection in urine sediment by light microscopy <20 0 - 5 02/13/2018 [facility] Specific gravity of Urine by Test strip Specific gravity of Urine by Test strip 1.025 1.010 - 1.025 02/13/2018 [facility] Urine clarity Urine clarity SL CLOUDY CLEAR 02/13/2018 [facility] Urine color determination Urine color determination YELLOW YELLOW 02/13/2018 [facility] Urine erythrocytes detection Urine erythrocytes detection 3+ NEGATIVE 02/13/2018 [facility] Urine glucose detection Urine glucose detection NEGATIVE NEGATIVE 02/13/2018 [facility] Urine ketones detection by automated test strip Urine ketones detection by automated test strip NEGATIVE NEGATIVE 02/13/2018 [facility] Urine Legionella pneumophila 1 antigen detection by immunoassay Urine Legionella pneumophila 1 antigen detection by immunoassay Negative Negative 02/13/2018 [facility] Urine leukocyte esterase detection by dipstick Urine leukocyte esterase detection by dipstick NEGATIVE NEGATIVE 02/13/2018 [facility] Urine nitrite detection Urine nitrite detection NEGATIVE NEGATIVE 02/13/2018 [facility] Urine pH measurement by automated test strip Urine pH measurement by automated test strip 5 5 - 7 02/13/2018 [facility] Urine protein measurement by test strip (mass/volume) Urine protein measurement by test strip (mass/volume) 2+ NEGATIVE 02/13/2018 [facility] Urine total bilirubin measurement (mass/volume) Urine total bilirubin measurement (mass/volume) NEGATIVE NEGATIVE 02/13/2018 [facility] Urine urobilinogen measurement by test strip (mass/volume) Urine urobilinogen measurement by test strip (mass/volume) 1 0.2 - 1 02/13/2018 [facility] Influenza virus A and B antigen identification by immunofluorescence Influenza virus A and B antigen identification by immunofluorescence NEGATIVE NEGATIVE 02/13/2018 [facility] Blood culture Blood culture NO GROWTH AFTER 5 DAYS, FINAL REPORT 02/13/2018 [facility] Serum or plasma magnesium measurement (mass/volume) Serum or plasma magnesium measurement (mass/volume) 1.6 1.3 - 2.1 02/13/2018 [facility] Lactic Acid Level 9.4 4.5 - 19.8 02/13/2018 [facility] Pathology Reports No Data Provided for This [...] 05/20/2017 Oumar Gramajo Heart Rate 88 05/20/2017 Uomar Gramajo Diastolic (mm Hg) 60 05/20/2017 Oumar [...] Preston Gramajo MD follow u for refills [id number] 03/16/2014 03/16/2014 Oumar Gramajo MD follow u for refills [id number] 03/16/2014 03/16/2014 Oumar Gramajo MD follow u for refills [id number] 03/16/2014 03/16/2014 Oumar Gramajo MD follow u for refills [id number] 03/16/2014 03/16/2014 Oumar Gramajo MD follow u for refills [id number] 03/16/2014 03/16/2014 Oumar Gramajo MD follow u for refills [id number] 03/16/2014 03/16/2014 Oumar Gramajo MD follow u for refills [id number] 03/16/2014 03/16/2014 Oumar Gramajo MD follow u for refills [id number] 03/16/2014 03/16/2014 Oumar Gramajo MD follow u for refills [id number] 03/16/2014 03/16/2014 Oumar Gramajo MD follow u for refills [id number] 03/16/2014 03/16/2014 Oumar Gramajo MD follow u for refills [id number] 03/16/2014 03/16/2014 Oumar Gramajo MD follow u for refills [id number] 03/16/2014 03/16/2014 Oumar Gramajo MD follow u for refills [id number] 03/16/2014 03/16/2014 Oumar Gramajo MD follow u for refills [id number] 03/16/2014 03/16/2014 Oumar Gramajo MD follow u for refills [id number] 03/16/2014 03/16/2014 Oumar Gramajo MD follow u for refills [id number] 03/16/2014 03/16/2014 Oumar Gramajo MD follow u for refills [id number] 03/16/2014 03/16/2014 Oumar Gramajo MD follow u for refills [id number] 03/16/2014 03/16/2014 Oumar Gramajo MD follow u for refills [id number] 03/16/2014 03/16/2014 Oumar Gramajo MD follow u for refills [id number] 03/16/2014 03/16/2014 Oumar Gramajo MD follow u for refills [id number] 03/16/2014 03/16/2014 Oumar Gramajo MD follow u for refills [id number] 03/16/2014 03/16/2014 Oumar Gramajo MD follow u for refills [id number] 03/16/2014 03/16/2014 Oumar Gramajo MD follow u for refills [id number] 03/16/2014 03/16/2014 Oumar Gramajo MD follow u for refills [id number] 03/16/2014 03/16/2014 Oumar Gramajo MD follow u for refills [id number] 03/16/2014 03/16/2014 Oumar Gramajo MD follow u for refills [id number] 03/16/2014 03/16/2014 Oumar Gramajo MD follow u for refills [id number]-wts9gfldq59l 03/16/2014 03/16/2014 Oumar Gramajo MD follow u for refills [id number] 03/16/2014 03/16/2014 Oumar Gramajo MD follow u for refills [id number] 03/16/2014 03/16/2014 Oumar Gramajo MD follow u for refills [id number] 03/16/2014 03/16/2014 Oumar Gramajo MD follow u for refills [id number] 03/16/2014 03/16/2014 Oumar Gramajo MD follow u for refills [id number] 06/01/2014 06/01/2014 Oumar Gramajo MD follow u for refills [id number] 06/01/2014 06/01/2014 Oumar Gramajo MD follow u for refills [id number] 06/01/2014 06/01/2014 Oumar Gramajo MD follow u for refills [id number] 06/01/2014 06/01/2014 Oumar Gramajo MD follow u for refills [id number] 06/01/2014 06/01/2014 Oumar Gramajo MD follow u for refills [id number] 06/01/2014 06/01/2014 Oumar Gramajo MD follow u for refills [id number] 06/01/2014 06/01/2014 Oumar Gramajo MD follow u for refills [id number] 06/01/2014 06/01/2014 Oumar Gramajo MD follow u for refills [id number]-[id number] 06/01/2014 06/01/2014 Oumar Gramajo MD follow u for refills [id number] 06/01/2014 06/01/2014 Oumar Gramajo MD follow u for refills [id number]-[id number] 06/01/2014 06/01/2014 Oumar Gramajo MD follow u for refills [id number] 06/01/2014 06/01/2014 Oumar Gramajo MD follow u for refills [id number] 06/01/2014 06/01/2014 Oumar Gramajo MD follow u for refills [id number] 06/01/2014 06/01/2014 Oumar Gramajo MD follow u for refills [id number] 06/01/2014 06/01/2014 Oumar Gramajo MD follow u for refills [id number] 06/01/2014 06/01/2014 Oumar Gramajo MD follow u for refills [id number] 06/01/2014 06/01/2014 Oumar Gramajo MD follow u for refills [id number] 06/01/2014 06/01/2014 Oumar Gramajo MD follow u for refills [id number] 06/01/2014 06/01/2014 Oumar Gramajo MD follow u for refills [id number] 06/01/2014 06/01/2014 Oumar Gramajo MD follow u for refills [id number] 06/01/2014 06/01/2014 Oumar Gramajo MD follow u for refills [id number]-96op-[id number] 06/01/2014 06/01/2014 Oumar Gramajo MD follow u for refills [id number]-[id number] 06/01/2014 06/01/2014 Oumar Gramajo MD follow u for refills [id number]-7fo77zui74zl 06/01/2014 06/01/2014 Oumar Gramajo MD follow u for refills [id number]-[id number] 06/01/2014 06/01/2014 Oumar Gramajo MD follow u for refills [id number]-1204-ej01-st3p51j3s4mf 06/01/2014 06/01/2014 Oumar Gramajo MD follow u for refills [id number] 06/01/2014 06/01/2014 Oumar Gramajo MD follow u for refills [id number] 06/01/2014 06/01/2014 Oumar Gramajo MD follow u for refills [id number]-[id number] 06/01/2014 06/01/2014 Oumar Gramajo MD follow u for refills [id number] 06/01/2014 06/01/2014 Oumar Gramajo MD follow u for refills [id number] 06/01/2014 06/01/2014 Oumar Gramajo MD sulfasalazine [id number]-u886qanb6hk1 06/04/2014 06/04/2014 Oumar Gramajo MD sulfasalazine [id number] 06/04/2014 06/04/2014 Oumar Gramajo MD sulfasalazine [id number] 06/04/2014 06/04/2014 Oumar Gramajo MD sulfasalazine [id number]-789e48y2q891 06/04/2014 06/04/2014 Oumar Gramajo MD sulfasalazine [id number]-[id number]-i4m2-by3fj21qc311 06/04/2014 06/04/2014 Oumar Gramajo MD sulfasalazine [id number] 06/04/2014 06/04/2014 Oumar Gramajo MD sulfasalazine [id number]-la7i-457ftv41134b 06/04/2014 06/04/2014 Oumar Gramajo MD sulfasalazine [id number]-pnwkacv22513 06/04/2014 06/04/2014 Oumar Gramajo MD sulfasalazine [id number]-[id number] 06/04/2014 06/04/2014 Oumar Gramajo MD sulfasalazine [id number] 06/04/2014 06/04/2014 Oumar Gramajo MD sulfasalazine [id number]-i206-c7i7e69yu54c 06/04/2014 06/04/2014 Oumar Gramajo MD sulfasalazine [id number]-l711-2a3x2b9ap41r 06/04/2014 06/04/2014 Oumar Gramajo MD sulfasalazine [id number]-[id number]-d2s9-h7tj34q4yza6 06/04/2014 06/04/2014 Oumar Gramajo MD sulfasalazine [id number] 06/04/2014 06/04/2014 Oumar Gramajo MD sulfasalazine [id number]-814a-tu0l-[id number] 06/04/2014 06/04/2014 Oumar Gramajo MD sulfasalazine [id number]-66f8m6i5h505 06/04/2014 06/04/2014 Oumar Gramajo MD sulfasalazine [id number]-7m39-cq9r-yh1sz23i6a49 06/04/2014 06/04/2014 Oumar Gramajo MD sulfasalazine [id number]-qc8e4t1m1hxr 06/04/2014 06/04/2014 Oumar Gramajo MD sulfasalazine [id number]-y756-28331z14v4u8 06/04/2014 06/04/2014 Oumar Gramajo MD sulfasalazine 52z39x7u-b7bi-0v3b-0pi7-c991d9k9j5c2 06/04/2014 06/04/2014 Oumar Gramajo MD sulfasalazine [id number]-[id number]-u664z6c7727y 06/04/2014 06/04/2014 Oumar Gramajo MD sulfasalazine [id number]-[id number] 06/04/2014 06/04/2014 Oumar Gramajo MD sulfasalazine [id number]-u249-u1e32h07k269 06/04/2014 06/04/2014 Oumar Gramajo MD sulfasalazine [id number]-750f-880e-[id number] 06/04/2014 06/04/2014 Oumar Gramajo MD sulfasalazine 33qtqf0r-hn2u-12n5-381d-j758d829ce34 06/04/2014 06/04/2014 Oumar Gramajo MD sulfasalazine [id number]-[id number] 06/04/2014 06/04/2014 Oumar Gramajo MD sulfasalazine [id number]-jf02-65a2-ljo5-6c4982r0n904 06/04/2014 06/04/2014 Oumar Gramajo MD sulfasalazine [id number]-[id number]-o227-z90p5s2ee78i 06/04/2014 06/04/2014 Oumar Gramajo MD sulfasalazine [id number] 06/04/2014 06/04/2014 Oumar Gramajo MD sulfasalazine [id number]-o0m1-3011k2ft8s97 06/04/2014 06/04/2014 Oumar Gramajo MD sulfasalazine a99zj1q7-65y0-5061-i50g-945b36j0qw8c 06/04/2014 06/04/2014 Oumar Gramajo MD Refill- Tramadol [id number]-[id number]-j56g-16386a2j633i 07/21/2014 07/21/2014 Oumar Gramajo MD Refill- Tramadol [id number]-[id number]-[id number] 07/21/2014 07/21/2014 Oumar Gramajo MD Refill- Tramadol [id number] 07/21/2014 07/21/2014 Oumar Gramajo MD Refill- Tramadol [id number]-52t5-5l10-[id number] 07/21/2014 07/21/2014 Oumar Gramajo MD Refill- Tramadol [id number]-jj6e-[id number] 07/21/2014 07/21/2014 Oumar Gramajo MD Refill- Tramadol [id number]-eg45zumn2hv3 07/21/2014 07/21/2014 Oumar Gramajo MD Refill- Tramadol [id number]-1ca9-5g7e-8565-80t8s9s507t4 07/21/2014 07/21/2014 Oumar Gramajo MD Refill- Tramadol [id number]-398j-[id number] 07/21/2014 07/21/2014 Oumar Gramajo MD Refill- Tramadol [id number]-i137-[id number] 07/21/2014 07/21/2014 Oumar Gramajo MD Refill- Tramadol [id number]-[id number]-[id number] 07/21/2014 07/21/2014 Oumar Gramajo MD Refill- Tramadol [id number]-[id number]-[id number] 07/21/2014 07/21/2014 Oumar Gramajo MD Refill- Tramadol [id number]-20lh-7iafh35oe3zo 07/21/2014 07/21/2014 Oumar Gramajo MD Refill- Tramadol [id number]-wz29-86sf-f965-580ju62ys20d 07/21/2014 07/21/2014 Oumar Gramajo MD Refill- Tramadol [id number]-5481-t3e2o0o5948m 07/21/2014 07/21/2014 Oumar Gramajo MD Refill- Tramadol [id number]-syaw-7j0f-38i6-[id number] 07/21/2014 07/21/2014 Oumar Gramajo MD Refill- Tramadol [id number] 07/21/2014 07/21/2014 Oumar Gramajo MD Refill- Tramadol [id number]-g708-092w-[id number] 07/21/2014 07/21/2014 Oumar Gramajo MD Refill- Tramadol [id number]-282f-l781-d4307jz323p1 07/21/2014 07/21/2014 Oumar Gramajo MD Refill- Tramadol [id number]-4403-jn26-877o1r4k6q7m 07/21/2014 07/21/2014 Oumar Gramajo MD Refill- Tramadol [id number]-34c5-560v-8b31j4g31u9l 07/21/2014 07/21/2014 Oumar Gramajo MD Refill- Tramadol [id number]-snm433iai7wo 07/21/2014 07/21/2014 Oumar Gramajo MD Refill- Tramadol [id number] 07/21/2014 07/21/2014 Oumar Gramajo MD Refill- Tramadol [id number]-7743-[id number] 07/21/2014 07/21/2014 Oumar Gramajo MD Refill- Tramadol [id number]-z764-herm8gn85kc0 07/21/2014 07/21/2014 Oumar Gramajo MD Refill- Tramadol [id number] 07/21/2014 07/21/2014 Oumar Gramajo MD Refill- Tramadol [id number]-wi18-987w6ds3i95g 07/21/2014 07/21/2014 Oumar Gramajo MD Refill- Tramadol [id number]-[id number] 07/21/2014 07/21/2014 Oumar Gramajo MD Refill- Tramadol [id number] 07/21/2014 07/21/2014 Oumar Gramajo MD Refill- Tramadol [id number]-5t734qf934o1 07/21/2014 07/21/2014 Oumar Gramajo MD tramadol- refill [id number]-9844-[id number] 08/20/2014 08/20/2014 Oumar Gramajo MD tramadol- refill [id number]-3399-[id number] 08/20/2014 08/20/2014 Oumar Gramajo MD tramadol- refill [id number] 08/20/2014 08/20/2014 Oumar Gramajo MD tramadol- refill [id number] 08/20/2014 08/20/2014 Oumar Gramajo MD tramadol- refill [id number] 08/20/2014 08/20/2014 Oumar Gramajo MD tramadol- refill [id number]-[id number] 08/20/2014 08/20/2014 Oumar Gramajo MD tramadol- refill [id number] 08/20/2014 08/20/2014 Oumar Gramajo MD tramadol- refill [id number] 08/20/2014 08/20/2014 Oumar Gramajo MD tramadol- refill [id number] 08/20/2014 08/20/2014 Oumar Gramajo MD tramadol- refill [id number]-[id number] 08/20/2014 08/20/2014 Oumar Gramajo MD tramadol- refill [id number] 08/20/2014 08/20/2014 Oumar Gramajo MD tramadol- refill [id number] 08/20/2014 08/20/2014 Oumar Gramajo MD tramadol- refill [id number] 08/20/2014 08/20/2014 Oumar Gramajo MD tramadol- refill [id number] 08/20/2014 08/20/2014 Oumar Gramajo MD tramadol- refill [id number] 08/20/2014 08/20/2014 Oumar Gramajo MD tramadol- refill [id number] 08/20/2014 08/20/2014 Oumar Gramajo MD tramadol- refill [id number] 08/20/2014 08/20/2014 Oumar Gramajo MD tramadol- refill [id number] 08/20/2014 08/20/2014 Oumar Gramajo MD tramadol- refill [id number] 08/20/2014 08/20/2014 Oumar Gramajo MD tramadol- refill [id number] 08/20/2014 08/20/2014 Oumar Gramajo MD tramadol- refill [id number]-[id number] 08/20/2014 08/20/2014 Oumar Gramajo MD tramadol- refill [id number] 08/20/2014 08/20/2014 Oumar Gramajo MD tramadol- refill [id number]-wd2tmxi1w6b3 08/20/2014 08/20/2014 Oumar Gramajo MD tramadol- refill [id number] 08/20/2014 08/20/2014 Oumar Gramajo MD tramadol- refill [id number] 08/20/2014 08/20/2014 Oumar Gramajo MD tramadol- refill [id number]-[id number] 08/20/2014 08/20/2014 Oumar Gramajo MD tramadol- refill [id number] 08/20/2014 08/20/2014 Oumar Gramajo MD tramadol- refill [id number] 08/20/2014 08/20/2014 Oumar Gramajo MD tramadol- refill [id number] 08/20/2014 08/20/2014 Oumar Gramajo [facility] [place] Lab Report [id number] Kelechi Peacock MD 09/07/2014 09/07/2014 [facility] MD RX Request-- Sulfasalazine [id number] 09/20/2014 09/20/2014 Oumar Gramajo MD RX Request-- Sulfasalazine [id number] 09/20/2014 09/20/2014 Oumar Gramajo MD RX Request-- Sulfasalazine [id number] 09/20/2014 09/20/2014 Oumar Gramajo MD RX Request-- Sulfasalazine [id number] 09/20/2014 09/20/2014 Oumar Gramajo MD RX Request-- Sulfasalazine [id number]-[id number] 09/20/2014 09/20/2014 Oumar Gramajo MD RX Request-- Sulfasalazine [id number] 09/20/2014 09/20/2014 Oumar Gramajo MD RX Request-- Sulfasalazine [id number] 09/20/2014 09/20/2014 Oumar Gramajo MD RX Request-- Sulfasalazine [id number] 09/20/2014 09/20/2014 Oumar Gramajo MD RX Request-- Sulfasalazine [id number]-[id number] 09/20/2014 09/20/2014 Oumar Gramajo MD RX Request-- Sulfasalazine [id number] 09/20/2014 09/20/2014 Oumar Gramajo MD RX Request-- Sulfasalazine [id number] 09/20/2014 09/20/2014 Oumar Gramajo MD RX Request-- Sulfasalazine [id number] 09/20/2014 09/20/2014 Oumar Gramajo MD RX Request-- Sulfasalazine [id number] 09/20/2014 09/20/2014 Oumar Gramajo MD RX Request-- Sulfasalazine [id number] 09/20/2014 09/20/2014 Oumar Gramajo MD RX Request-- Sulfasalazine [id number] 09/20/2014 09/20/2014 Oumar Gramajo MD RX Request-- Sulfasalazine [id number] 09/20/2014 09/20/2014 Oumar Gramajo MD RX Request-- Sulfasalazine [id number] 09/20/2014 09/20/2014 Oumar Gramajo MD RX Request-- Sulfasalazine [id number] 09/20/2014 09/20/2014 Oumar Gramajo MD RX Request-- Sulfasalazine [id number] 09/20/2014 09/20/2014 Oumar Gramajo MD RX Request-- Sulfasalazine [id number]-t1tj-ld1uf2w140c6 09/20/2014 09/20/2014 Oumar Gramajo MD RX Request-- Sulfasalazine [id number] 09/20/2014 09/20/2014 Oumar Gramajo MD RX Request-- Sulfasalazine [id number] 09/20/2014 09/20/2014 Oumar Gramajo MD RX Request-- Sulfasalazine [id number] 09/20/2014 09/20/2014 Oumar Gramajo MD RX Request-- Sulfasalazine [id number] 09/20/2014 09/20/2014 Oumar Gramajo MD RX Request-- Sulfasalazine [id number] 09/20/2014 09/20/2014 Oumar Gramajo MD RX Request-- Sulfasalazine [id number] 09/20/2014 09/20/2014 Oumar Gramajo MD RX Request-- Sulfasalazine [id number] 09/20/2014 09/20/2014 Oumar Gramajo MD RX Request-- Naproxen [id number]-p5n2-e714lg2j5ux3 09/22/2014 09/22/2014 Oumar Gramajo MD RX Request-- Naproxen [id number] 09/22/2014 09/22/2014 Oumar Gramajo MD RX Request-- Naproxen [id number]-[id number] 09/22/2014 09/22/2014 Oumar Gramajo MD RX Request-- Naproxen [id number] 09/22/2014 09/22/2014 Oumar Gramajo MD RX Request-- Naproxen [id number] 09/22/2014 09/22/2014 Oumar Gramajo MD RX Request-- Naproxen [id number] 09/22/2014 09/22/2014 Oumar Gramajo MD RX Request-- Naproxen [id number] 09/22/2014 09/22/2014 Oumar Gramajo MD RX Request-- Naproxen [id number] 09/22/2014 09/22/2014 Oumra Gramajo MD RX Request-- Naproxen [id number] 09/22/2014 09/22/2014 Oumar Gramajo MD RX Request-- Naproxen [id number] 09/22/2014 09/22/2014 Oumar Gramajo MD RX Request-- Naproxen [id number] 09/22/2014 09/22/2014 Oumar Gramajo MD RX Request-- Naproxen [id number] 09/22/2014 09/22/2014 Oumar Gramajo MD RX Request-- Naproxen [id number] 09/22/2014 09/22/2014 uOmar Gramajo MD RX Request-- Naproxen [id number] 09/22/2014 09/22/2014 Oumar Gramajo MD RX Request-- Naproxen [id number] 09/22/2014 09/22/2014 Oumar Gramajo MD RX Request-- Naproxen [id number]-[id number] 09/22/2014 09/22/2014 Oumar Gramajo MD RX Request-- Naproxen [id number] 09/22/2014 09/22/2014 Oumar Gramajo MD RX Request-- Naproxen [id number] 09/22/2014 09/22/2014 Oumar Gramajo MD RX Request-- Naproxen [id number] 09/22/2014 09/22/2014 Oumar Gramajo MD RX Request-- Naproxen [id number] 09/22/2014 09/22/2014 Oumar Gramajo MD RX Request-- Naproxen [id number] 09/22/2014 09/22/2014 Oumar Gramajo MD RX Request-- Naproxen [id number] 09/22/2014 09/22/2014 Oumar Gramajo MD RX Request-- Naproxen [id number] 09/22/2014 09/22/2014 Oumar Gramajo MD RX Request-- Naproxen [id number]-ib0vk72o321x 09/22/2014 09/22/2014 Oumar Gramajo MD RX Request-- Naproxen [id number]-m369-[id number] 09/22/2014 09/22/2014 Oumar Gramajo MD RX Request-- Naproxen [id number] 09/22/2014 09/22/2014 Oumar Gramajo MD Refill- Naproxen [id number]-7884-m3jy-ony10994d724 09/24/2014 09/24/2014 Oumar Gramajo MD Refill- Naproxen [id number]-[id number] 09/24/2014 09/24/2014 Oumar Gramajo MD Refill- Naproxen 3h88n6w3-a410-2m56-f1yl-675h39i6q86z 09/24/2014 09/24/2014 Oumar Gramajo MD Refill- Naproxen z6f3w9n8-uf02-0vq7-p640-0l04w7sw2916 09/24/2014 09/24/2014 Oumar Gramajo MD Refill- Naproxen [id number]-742e-2s3m70w28u25 09/24/2014 09/24/2014 Oumar Gramajo MD Refill- Naproxen [id number]-wzu5-267k-p51x-[id number] 09/24/2014 09/24/2014 Oumar Gramajo MD Refill- Naproxen [id number]-e220ab681697 09/24/2014 09/24/2014 Oumar Gramajo MD Refill- Naproxen [id number]-g51e-40934zyu8701 09/24/2014 09/24/2014 Oumar Gramajo MD Refill- Naproxen 2267qj76-5457-180h-eya3-7i5i5d4z75a7 09/24/2014 09/24/2014 Oumar Gramajo MD Refill- Naproxen 5up98is5-50b9-80ue-113m-1h795dhv5h21 09/24/2014 09/24/2014 Oumar Gramajo MD Refill- Naproxen 0nz14fsg-ga58-41xo-g104-897rjp277s94 09/24/2014 09/24/2014 Oumar Gramajo MD Refill- Naproxen 35j9045u-6336-7h12-jbf9-2e1r0256d2g6 09/24/2014 09/24/2014 Oumar Gramajo MD Refill- Naproxen [id number]-[id number]-[id number] 09/24/2014 09/24/2014 Oumar Gramajo MD Refill- Naproxen [id number]-7kwa-72az-74im-m07z8332i1n4 09/24/2014 09/24/2014 Oumar Gramajo MD Refill- Naproxen [id number] 09/24/2014 09/24/2014 Oumar Gramajo MD Refill- Naproxen z11be7e5-r331-7766-cl43-8x2sv95pi99h 09/24/2014 09/24/2014 Oumar Gramajo MD Refill- Naproxen [id number]q34 09/24/2014 09/24/2014 Oumar Gramajo MD Refill- Naproxen 511lip3v-09l5-717m-0368-511dp7h4ov8f 09/24/2014 09/24/2014 Oumar Gramajo MD Refill- Naproxen [id number]-0578-4pn3-04t1na60s7h1 09/24/2014 09/24/2014 Oumar Gramajo MD Refill- Naproxen 78p2j57n-a41j-0161-a3ps-47ar9k4n87an 09/24/2014 09/24/2014 Oumar Gramajo MD Refill- Naproxen 3jdl3jg2-99i3-09p4-d990-7ph76p5k026y 09/24/2014 09/24/2014 Oumra Gramajo MD Refill- Naproxen k5vj2180-23z9-0v22-f03d-903b70o46f29 09/24/2014 09/24/2014 Oumar Gramajo MD Refill- Naproxen [id number]-v822-0vod-v63z-sq45prgu2v6q 09/24/2014 09/24/2014 Oumar Gramajo MD Refill- Naproxen o4t0021j-0800-2p30-vxv2-9io985d760zn 09/24/2014 09/24/2014 Oumar Gramajo MD Refill- Naproxen 03d4t286-4875-87gm-gj4t-t8280ny0399h 09/24/2014 09/24/2014 Oumar Gramajo MD Refill- Naproxen [id number]-biwo-8gxw-1411-963e3nt34fzl 09/24/2014 09/24/2014 Oumar Gramajo MD DEXA [id number]-r57o-7513o27g2x78 10/15/2014 10/15/2014 Oumar Gramajo MD DEXA 5004n3u9-ikct-9365-b706-x6s02me84705 10/15/2014 10/15/2014 Oumar Gramajo MD DEXA [id number]-0045-inle65wm09v6 10/15/2014 10/15/2014 Oumar Gramajo MD DEXA 156b028k-5ixz-19wv-cl7t-22bfs7s4ih55 10/15/2014 10/15/2014 Oumar Gramajo MD DEXA 8ifg4yw1-k9h7-4o77-4287-8wm9s38ku428 10/15/2014 10/15/2014 Oumar Gramajo MD DEXA 51qznr9y-b2a9-8938-x717-3ngl0278b5x7 10/15/2014 10/15/2014 Oumar Gramajo MD DEXA 97d24sdy-zhq6-7o02-oa95-w70950o9rk28 10/15/2014 10/15/2014 Oumar Gramajo MD DEXA 6gt99e6x-tf60-98k0-3461-pd5x7lri029k 10/15/2014 10/15/2014 Oumar Gramajo MD DEXA [id number]-26z2-9scu-y7i86l051j87 10/15/2014 10/15/2014 Oumar Gramajo MD DEXA [id number]-0mq0-9682r1a58f20 10/15/2014 10/15/2014 Oumar Gramajo MD DEXA [id number]-q0j05wmt8p65 10/15/2014 10/15/2014 Oumar Gramajo MD DEXA 2re384gd-x18t-3z55-3hwc-c476b8552sh0 10/15/2014 10/15/2014 Oumar Gramajo MD DEXA i4e6zefa-6xaq-8899-y233-c49e7611pe3q 10/15/2014 10/15/2014 Oumar Gramajo MD [facility] [id number]-8cm2-n2py-a5xi9137c794 10/15/2014 10/15/2014 Oumar Gramajo MD [facility] 26x104q7-3pr7-35ws-6yv2-154k6ceb8685 10/15/2014 10/15/2014 Oumar Gramajo MD [facility] [id number]-s303-75895026234v 10/15/2014 10/15/2014 Oumar Gramajo MD [facility] 7paf80j1-aa9w-400z-w92f-476k15797fd0 10/15/2014 10/15/2014 Oumar Gramajo MD [facility] i07p9123-h749-6hbh-g6o1-24o4wu213yhw 10/15/2014 10/15/2014 Oumar Gramajo MD [facility] 9canp6lq-6589-85b8-c101-1j610ssco87p 10/15/2014 10/15/2014 Oumar Gramajo MD [facility] 3929t18j-05iz-4rh3-jqkr-28b61552c6a8 10/15/2014 10/15/2014 Oumar Gramajo MD [facility] 6v2ui9u6-1q56-2u2k-1563-e890x95170yd 10/15/2014 10/15/2014 Oumar Gramajo MD [facility] [id number]-18x1-5u01-2o8dq6n61h96 10/15/2014 10/15/2014 Oumar Gramajo MD [facility] 43pji09z-92gn-80yh-8450-95md29l86cu5 10/15/2014 10/15/2014 Oumar Gramajo MD [facility] 26ht6905-9dc3-0208-a50n-49cvvo0tt24a 10/15/2014 10/15/2014 Oumar Gramajo MD [facility] tc74dbif-1163-4xg9-1958-e1g64psz03ac 10/15/2014 10/15/2014 Oumar Gramajo MD [facility] 6g4c278w-37op-7pxn-dct9-377d6468a812 10/15/2014 10/15/2014 Oumar Gramajo MD DEXA [id number]-[id number]-8oyh1qnj5csd 10/15/2014 10/15/2014 Oumar Gramajo MD DEXA 9h3t2coj-qw47-291a-9p89-9hg1vxfk2241 10/15/2014 10/15/2014 Oumar Gramajo MD DEXA [id number]-4nk6-g306-28v3969x23g6 10/15/2014 10/15/2014 Oumar Gramajo MD DEXA 5f95v20k-g2w4-7a6r-g409-g2d07vb22015 10/15/2014 10/15/2014 Oumar Gramajo MD DEXA [id number]-h8an-ruz3b4012218 10/15/2014 10/15/2014 Oumar Gramajo MD DEXA [id number]-b4f7938b799v 10/15/2014 10/15/2014 Oumar Gramajo MD DEXA 3445vo3a-2m2h-960t-5bro-b334rr5g3nhh 10/15/2014 10/15/2014 Oumar Gramajo MD DEXA [id number] 10/15/2014 10/15/2014 Oumar Gramajo MD DEXA [id number]-3ih3-848l-vco5-w450715ng067 10/15/2014 10/15/2014 Oumar Gramajo MD DEXA p25txz3f-i0j5-0xh5-f11i-vwq05460u682 10/15/2014 10/15/2014 Oumar Gramajo MD DEXA [id number]-vhh23e7bz32u 10/15/2014 10/15/2014 Oumar Gramajo MD [facility] [id number]-d639-210s942jih36 10/15/2014 10/15/2014 Oumar Gramajo MD [facility] [id number]-hx09-9242-b2yv-14gpmki57638 10/15/2014 10/15/2014 Oumar Gramajo MD [facility] [id number]-36q6-2j4r-016id6b88l72 10/15/2014 10/15/2014 Oumar Gramajo MD [facility] 2sm97fog-na9c-8298-0209-771xpix87010 10/15/2014 10/15/2014 Oumar Gramajo MD [facility] 53c742w9-5379-5e33-kf82-c470489jd58r 10/15/2014 10/15/2014 Oumar Gramajo MD [facility] i3s7ur1e-zd93-443y-0my3-bb4lb8264b5e 10/15/2014 10/15/2014 Oumar Gramajo MD [facility] [id number]-1930-k3g208h94i84 10/15/2014 10/15/2014 Oumar Gramajo MD [facility] [id number]-[id number] 10/15/2014 10/15/2014 Oumar Gramajo MD [facility] [id number] 10/15/2014 10/15/2014 Oumar Gramajo MD [facility] [id number]-[id number]-3a4u0222dnc1 10/15/2014 10/15/2014 Oumar Gramajo MD Follow up--End of Nov [id number]-n1o9h88494xu 11/22/2014 11/22/2014 Oumar Gramajo MD Follow up--End of Nov [id number]-5xk34e969z93 11/22/2014 11/22/2014 Oumar Gramajo MD Follow up--End of Nov 690p6t18-ugrx-69ke-p800-87en9l9hg438 11/22/2014 11/22/2014 Oumar Gramajo MD Follow up--End of Nov 32s0g0or-0x1b-0jx5-8858-018bp484b504 11/22/2014 11/22/2014 Oumar Gramajo MD Follow up--End of Nov [id number]-0t32-f867-2q5gmg8g6z56 11/22/2014 11/22/2014 Oumar Gramajo MD Follow up--End of Nov [id number]-r57k-h7su78377924 11/22/2014 11/22/2014 Oumar Gramajo MD Follow up--End of Nov [id number]-o201-61c8-j623-fz48367uho80 11/22/2014 11/22/2014 Oumar Gramajo MD Follow up--End of Nov 58rj3s00-3hji-4h87-418g-14vy82dchr69 11/22/2014 11/22/2014 Oumar Gramajo MD Follow up--End of Nov [id number] 11/22/2014 11/22/2014 Oumra Gramajo MD Follow up--End of Nov [id number]-oe03-5pmr-f58n-53303m3a5483 11/22/2014 11/22/2014 Oumar Gramajo MD Follow up--End of Nov [id number]-ht54t0j796xk 11/22/2014 11/22/2014 Oumar Gramajo MD Follow up--End of Nov [id number] 11/22/2014 11/22/2014 Oumar Gramajo MD Follow up--End of Nov [id number]-9p42-24wr-q772d5423s84 11/22/2014 11/22/2014 Oumar Gramajo MD Follow up--End of Nov [id number]-468t-8j9c6s72e507 11/22/2014 11/22/2014 Oumar Gramajo MD Follow up--End of Nov [id number]-2808-a0706903e78f 11/22/2014 11/22/2014 Oumar Gramajo MD Follow up--End of Nov [id number]-iw54-18tub7kt0202 11/22/2014 11/22/2014 Oumar Gramajo MD Follow up--End of Nov [id number]-n3zq-2c7m4ljp4y91 11/22/2014 11/22/2014 Oumar Gramajo MD Follow up--End of Nov [id number]-29t0-23el-kdk94651h1z6 11/22/2014 11/22/2014 Oumar Gramajo MD Follow up--End of Nov 64tuu19v-38q4-9she-18ws-wrt7yz67f362 11/22/2014 11/22/2014 Oumar Gramajo MD Follow up--End of Nov 16q0cgn6-xe97-5qvr-b68u-70494epw8nqg 11/22/2014 11/22/2014 Oumar Gramajo MD Follow up--End of Nov [id number]-[id number] 11/22/2014 11/22/2014 Oumar Gramajo MD Follow up--End of Nov [id number] 11/22/2014 11/22/2014 Oumar Gramajo MD Add on 01/06 xh8l13i3-19al-8j14-h5b8-5m8u2427063v 01/05/2015 01/05/2015 Oumar Gramajo MD Add on 01/06 [id number]-[id number] 01/05/2015 01/05/2015 Oumar Gramajo MD Add on 01/06 40573ll1-f254-01p3-9ly6-irw5w715w41v 01/05/2015 01/05/2015 Oumar Gramajo MD Add on 01/06 [id number]-14o6-717q-say9-y1500228d990 01/05/2015 01/05/2015 Oumar Gramajo MD Add on 01/06 8o16ds87-rl84-50d5-dv16-7552f5j41p80 01/05/2015 01/05/2015 Oumar Gramajo MD Add on 01/06 3u3h2n9r-dd99-3658-qwd9-6l100np89353 01/05/2015 01/05/2015 Oumar Gramajo MD Add on 01/06 j39512f7-aqi3-4596-r97s-5842c653fw7f 01/05/2015 01/05/2015 Oumar Gramajo MD Add on 01/06 4o64v631-p0h7-4zv2-h9sm-246o73t8g020 01/05/2015 01/05/2015 Oumar Gramajo MD Add on 01/06 cx2u64d9-1397-3300-c3v6-6077lj1lo78b 01/05/2015 01/05/2015 Oumar Gramajo MD Add on 01/06 v6zn3kxk-2495-2rwq-19ro-i2g2o002vy48 01/05/2015 01/05/2015 Oumar Gramajo MD Add on 01/06 mqq76rhs-7w0x-9632-66b9-xy341htoohql 01/05/2015 01/05/2015 Oumar Gramajo MD Add on 01/06 97gwt3iy-5956-38pw-8tcb-393hlrpo4st6 01/05/2015 01/05/2015 Oumar Gramajo MD Add on 01/06 [id number]-q830037ycdr3 01/05/2015 01/05/2015 Oumar Gramajo MD Add on 01/06 k86g7635-v990-5902-v6mo-506dl4yjul0t 01/05/2015 01/05/2015 Oumar Gramajo MD Add on 01/06 8q1h4l48-t028-8872-x853-b14c6g46l0u9 01/05/2015 01/05/2015 Oumar Gramajo MD Add on 01/06 03220y9c-m4fj-0749-2964-hb9v6mg324j6 01/05/2015 01/05/2015 Oumar Gramajo MD Add on 01/06 01f14fwq-t6a4-2m11-0ty6-1773k0qk40n7 01/05/2015 01/05/2015 Oumar Gramajo MD Add on 01/06 875s68i0-6q6p-837n-c3m1-m02z7z89c003 01/05/2015 01/05/2015 Oumar Gramajo MD Add on 01/06 2w875jz0-i010-5n67-x78n-502e1a10r507 01/05/2015 01/05/2015 Oumar Gramajo MD Add on 01/06 [id number]-zf4l-910q-b82q-38k12p5051sz 01/05/2015 01/05/2015 Oumar Gramajo MD Add on 01/06 ao152hrg-517l-032m-192p-qm3n84454047 01/05/2015 01/05/2015 Oumar Gramajo MD f/u 0302i9x6-i3y5-24p1-92u3-yq3n40v88u74 01/06/2015 01/06/2015 Oumar Gramajo MD f/u bh06v22g-fs2n-60w1-4782-34pf5mc1b56r 01/06/2015 01/06/2015 Oumar Gramajo MD f/u y204g9s5-tyu2-5270-42t2-72ejrdjb4b87 01/06/2015 01/06/2015 Oumar Gramajo MD f/u 803pty51-5r6r-3p49-3mv3-tu8p18y9ro6c 01/06/2015 01/06/2015 Oumar Gramajo MD f/u 638fqtx1-6k4i-9108-43dj-974155cr1xt0 01/06/2015 01/06/2015 Oumar Gramajo MD f/u 1822cp80-i3b3-4698-r723-7h49ok0217z1 01/06/2015 01/06/2015 Oumar Gramajo MD f/u [id number]-y470-1751b8220f53 01/06/2015 01/06/2015 Oumar Gramajo MD f/u [id number]-oj8g-9230-srx3-586le3i33268 01/06/2015 01/06/2015 Oumar Gramajo MD f/u 0fgw2k33-87p7-35h0-0732-87bg3sux31ub 01/06/2015 01/06/2015 Oumar Gramajo MD f/u 8k4626h5-l51m-4090-007g-729t2ctzdb5f 01/06/2015 01/06/2015 Oumar Gramajo MD f/u [id number]-9948-o690-021kq4153h52 01/06/2015 01/06/2015 Oumar Gramajo MD f/u p6th97j3-pde1-10s7-1k6o-3l90ms9r3o1m 01/06/2015 01/06/2015 Oumar Gramajo MD f/u [id number]-t898-6vs1351hq2mv 01/06/2015 01/06/2015 Oumar Gramajo MD f/u 74i88a63-26r5-497f-gx45-4p8p495cn9hm 01/06/2015 01/06/2015 Oumar Gramajo MD f/u 76hba312-sc33-31fb-b176-tk6291536m05 01/06/2015 01/06/2015 Oumar Gramajo MD f/u r93s427q-0055-6s77-8q7n-642d5co8p9ak 01/06/2015 01/06/2015 Oumar Gramajo MD f/u 1t3e2026-10bm-1z2p-j0wi-69so8ieys6qc 01/06/2015 01/06/2015 Oumar Gramajo MD f/u 7hav09et-hw65-9o08-emux-9o095d186v82 01/06/2015 01/06/2015 Oumar Gramajo MD f/u [id number]-lq9i-77yb25ux15px 01/06/2015 01/06/2015 Oumar Gramajo MD f/u 7amoa0py-437b-6896-ryeg-w5n72fx7t5u6 01/06/2015 01/06/2015 Oumar Gramajo MD DEXA 8jxp3kc5-a3r0-7332-163f-4em14tx460vs 01/06/2015 01/06/2015 Oumar Gramajo MD DEXA bu1yg1g1-t5c7-68r0-f776-6408o49956c6 01/06/2015 01/06/2015 Oumar Gramajo MD DEXA 7a2h3305-wt70-200t-hn34-x4h169366m0g 01/06/2015 01/06/2015 Oumar Gramajo MD DEXA 10pe32gw-hj36-9g1n-35te-g17ct65379x9 01/06/2015 01/06/2015 Oumar Gramajo MD DEXA w02360bs-[id number]-6b0s-55957np334h8 01/06/2015 01/06/2015 Oumar Gramajo MD DEXA cv043vc3-2i0b-5fx2-l8j7-32sq4873p2jl 01/06/2015 01/06/2015 Oumar Gramajo MD DEXA [id number]-h63v6l0qeb4m 01/06/2015 01/06/2015 Oumar Gramajo MD DEXA [id number]-ar1r-40j41a5ir56c 01/06/2015 01/06/2015 Oumar Gramajo MD DEXA k93x445o-rc6q-28qi-wy74-5z5snq03x83i 01/06/2015 01/06/2015 Oumar Gramajo MD DEXA [id number]-e293-t680ld679466 01/06/2015 01/06/2015 Oumar Gramajo MD DEXA 135ch79f-[id number]-t38x-r696713zw5h9 01/06/2015 01/06/2015 Oumar Gramajo MD DEXA [id number]-1890-y9465u49k4jx 01/06/2015 01/06/2015 Oumar Gramajo MD DEXA [id number]-igd29041u4ch 01/06/2015 01/06/2015 Oumar Gramajo MD DEXA 6g3ay2y7-6d06-52ws-l2d4-6v23r92077w9 01/06/2015 01/06/2015 Oumar Gramajo MD DEXA [id number]-tx41-09g2pl580427 01/06/2015 01/06/2015 Oumar Gramajo MD DEXA [id number]-[id number]-553gy9146s87 01/06/2015 01/06/2015 Oumar Gramajo MD DEXA 21a09a17-z056-2i92-toig-72hhq7bzdex8 01/06/2015 01/06/2015 Oumar Gramajo MD DEXA [id number]-8a95-03jcm20t513c 01/06/2015 01/06/2015 Oumar Gramajo MD DEXA boc75mt7-2f9y-1848-0040-6uy65o64ha76 01/06/2015 01/06/2015 Oumar Gramajo MD DEXA [id number] 01/06/2015 01/06/2015 Oumar Gramajo MD DEXA [id number]-11o8-5wk6-5p5e68u054g8 01/06/2015 01/06/2015 Oumar Gramajo MD Records Request [id number] 01/06/2015 01/06/2015 Oumar Gramajo MD Records Request [id number] 01/06/2015 01/06/2015 Oumar Gramajo MD Records Request [id number] 01/06/2015 01/06/2015 Oumar Gramajo MD Records Request [id number] 01/06/2015 01/06/2015 Oumar Gramajo MD Records Request [id number] 01/06/2015 01/06/2015 Oumar Gramajo MD Records Request [id number] 01/06/2015 01/06/2015 Oumar Gramajo MD Records Request [id number] 01/06/2015 01/06/2015 Oumar Gramajo MD Records Request [id number] 01/06/2015 01/06/2015 Oumar Gramajo MD Records Request [id number] 01/06/2015 01/06/2015 Oumar Gramajo MD Records Request [id number] 01/06/2015 01/06/2015 Oumar Gramajo MD Records Request [id number] 01/06/2015 01/06/2015 Oumar Gramajo MD Records Request [id number] 01/06/2015 01/06/2015 Oumar Gramajo MD Records Request [id number] 01/06/2015 01/06/2015 Oumar Gramajo MD Records Request [id number] 01/06/2015 01/06/2015 Oumar Gramajo MD Records Request [id number] 01/06/2015 01/06/2015 Oumar Gramajo MD Records Request [id number] 01/06/2015 01/06/2015 Oumar Gramajo MD Records Request [id number] 01/06/2015 01/06/2015 Oumar Gramajo MD Records Request [id number] 01/06/2015 01/06/2015 Oumar Gramajo MD Records Request [id number] 01/06/2015 01/06/2015 Oumar Gramajo MD Records Request [id number] 01/06/2015 01/06/2015 Oumar Gramajo MD Records Request [id number] 01/06/2015 01/06/2015 Oumar Gramajo MD RX Dispense Issue [id number] 01/07/2015 01/07/2015 Oumar Gramajo MD RX Dispense Issue [id number] 01/07/2015 01/07/2015 Oumar Gramajo MD RX Dispense Issue [id number] 01/07/2015 01/07/2015 Oumar Gramajo MD RX Dispense Issue [id number] 01/07/2015 01/07/2015 Oumar Gramajo MD RX Dispense Issue [id number] 01/07/2015 01/07/2015 Oumar Gramajo MD RX Dispense Issue [id number] 01/07/2015 01/07/2015 Oumar Gramajo MD RX Dispense Issue [id number] 01/07/2015 01/07/2015 Oumar Gramajo MD RX Dispense Issue [id number] 01/07/2015 01/07/2015 Oumar Gramajo MD RX Dispense Issue [id number] 01/07/2015 01/07/2015 Oumar Gramajo MD RX Dispense Issue [id number] 01/07/2015 01/07/2015 Oumar Gramajo MD RX Dispense Issue [id number] 01/07/2015 01/07/2015 Oumar Gramajo MD RX Dispense Issue [id number] 01/07/2015 01/07/2015 Oumar Gramajo MD RX Dispense Issue [id number] 01/07/2015 01/07/2015 Oumar Gramajo MD RX Dispense Issue [id number] 01/07/2015 01/07/2015 Oumar Gramajo MD RX Dispense Issue [id number] 01/07/2015 01/07/2015 Oumar Gramajo MD RX Dispense Issue [id number] 01/07/2015 01/07/2015 Oumar Gramajo MD RX Dispense Issue [id number] 01/07/2015 01/07/2015 Oumar Gramajo MD RX Dispense Issue [id number] 01/07/2015 01/07/2015 Oumar Gramajo MD RX Dispense Issue [id number] 01/07/2015 01/07/2015 Oumar Gramajo MD RX Dispense Issue [id number] 01/07/2015 01/07/2015 Oumar Gramajo MD RX Dispense Issue [id number] 01/07/2015 01/07/2015 Oumar Gramajo MD Pain Mgmt [id number] 03/08/2015 03/08/2015 Oumar Gramajo MD Pain Mgmt [id number] 03/08/2015 03/08/2015 Oumar Gramajo MD Pain Mgmt 133sf2z8-[id number]-p79mkhm9dbi2 03/08/2015 03/08/2015 Oumar Gramajo MD Pain Mgmt [id number]-[id number]-n0at7c2z3ach 03/08/2015 03/08/2015 Oumar Gramajo MD Pain Mgmt [id number] 03/08/2015 03/08/2015 Oumar Gramajo MD Pain Mgmt [id number] 03/08/2015 03/08/2015 Oumar Gramajo MD Pain Mgmt [id number]-[id number] 03/08/2015 03/08/2015 Oumar Gramajo MD Pain Mgmt [id number] 03/08/2015 03/08/2015 Oumar Gramajo MD Pain Mgmt [id number] 03/08/2015 03/08/2015 Oumar Gramajo MD Pain Mgmt [id number]-[id number] 03/08/2015 03/08/2015 Oumar Gramajo MD Pain Mgmt [id number]-s293-94qd9d8m4t23 03/08/2015 03/08/2015 Oumar Gramajo MD Pain Mgmt [id number] 03/08/2015 03/08/2015 Oumar Gramajo MD Pain Mgmt [id number]-mj35-39q3207p8i55 03/08/2015 03/08/2015 Oumar Gramajo MD Pain Mgmt [id number]-[id number] 03/08/2015 03/08/2015 Oumar Gramajo MD Pain Mgmt [id number] 03/08/2015 03/08/2015 Oumar Gramajo MD Pain Mgmt [id number]-67rcy2a468bk 03/08/2015 03/08/2015 Oumar Gramajo MD Pain Mgmt [id number]-[id number] 03/08/2015 03/08/2015 Oumar Gramajo MD Pain Mgmt 27sw9acm-mv6y-32pu-3l94-2121pm0r18c2 03/08/2015 03/08/2015 Oumar Gramajo MD Pain Mgmt [id number]-nb04-67n9-wzg2-091420cvd795 03/08/2015 03/08/2015 Oumar Gramajo MD Refill [id number] 05/11/2015 05/11/2015 Oumar Gramajo MD Refill [id number] 05/11/2015 05/11/2015 Oumar Gramajo MD Refill [id number]-odkn-3d50-lc29-s9p60967x6ip 05/11/2015 05/11/2015 Oumar Gramajo MD Refill [id number] 05/11/2015 05/11/2015 Oumar Gramajo MD Refill [id number]-60d63g420ow3 05/11/2015 05/11/2015 Oumar Gramajo MD Refill [id number]-60k5088644e4 05/11/2015 05/11/2015 Oumar Gramajo MD Refill [id number]-s2t9-g42b59m7b7c4 05/11/2015 05/11/2015 Oumar Gramajo MD Refill [id number] 05/11/2015 05/11/2015 Oumar Gramajo MD Refill [id number]-h1vy-f3di64o43564 05/11/2015 05/11/2015 Oumar Gramajo MD Refill [id number] 05/11/2015 05/11/2015 Oumar Gramajo MD Refill [id number] 05/11/2015 05/11/2015 Oumar Gramajo MD Refill [id number] 05/11/2015 05/11/2015 Oumar Gramajo MD Refill [id number] 05/11/2015 05/11/2015 Oumar Gramajo MD Refill [id number] 05/11/2015 05/11/2015 Oumar Gramajo MD Refill [id number]-57k8-2p56-pc947rvy29e7 05/11/2015 05/11/2015 Oumar Gramajo MD Refill [id number] 05/11/2015 05/11/2015 Oumar Gramajo MD Refill [id number] 05/11/2015 05/11/2015 Oumar Gramajo MD Refill [id number]-zofk5v13fstx 05/11/2015 05/11/2015 Oumar Gramajo MD Refill [id number] 05/11/2015 05/11/2015 Oumar Gramajo MD RX Request-- Tramadol [id number] 05/17/2015 05/17/2015 Oumar Gramajo MD RX Request-- Tramadol [id number] 05/17/2015 05/17/2015 Oumar Gramajo MD RX Request-- Tramadol [id number] 05/17/2015 05/17/2015 Oumar Gramajo MD RX Request-- Tramadol [id number] 05/17/2015 05/17/2015 Oumar Gramajo MD RX Request-- Tramadol [id number]-[id number] 05/17/2015 05/17/2015 Oumar Gramajo MD RX Request-- Tramadol [id number] 05/17/2015 05/17/2015 Oumar Gramajo MD RX Request-- Tramadol [id number]-a0r2isbw3gh1 05/17/2015 05/17/2015 Oumar Gramajo MD RX Request-- Tramadol [id number] 05/17/2015 05/17/2015 Oumar Gramajo MD RX Request-- Tramadol [id number] 05/17/2015 05/17/2015 Oumar Gramajo MD RX Request-- Tramadol [id number] 05/17/2015 05/17/2015 Oumar Gramajo MD RX Request-- Tramadol [id number]-06od5r377tdg 05/17/2015 05/17/2015 Oumar Gramajo MD RX Request-- Tramadol [id number] 05/17/2015 05/17/2015 Oumar Gramajo MD RX Request-- Tramadol [id number] 05/17/2015 05/17/2015 Oumar Gramajo MD RX Request-- Tramadol [id number]-[id number] 05/17/2015 05/17/2015 Oumar Gramajo MD RX Request-- Tramadol [id number] 05/17/2015 05/17/2015 Oumar Gramajo MD RX Request-- Tramadol [id number] 05/17/2015 05/17/2015 Oumar Gramajo MD RX Request-- Tramadol [id number]-m6za-[id number] 05/17/2015 05/17/2015 Oumar Gramajo MD RX Request-- Tramadol [id number] 05/17/2015 05/17/2015 Oumar Gramajo MD RX Request-- Tramadol [id number] 05/17/2015 05/17/2015 Oumar Gramajo MD f/u b6fsqy2a-k52c-[id number]-4w89x573no46 06/14/2015 06/14/2015 Oumar Gramajo MD f/u [id number]-xvdo-64z240455d7m 06/14/2015 06/14/2015 Oumar Gramajo MD f/u [id number] 06/14/2015 06/14/2015 Oumar Gramajo MD f/u [id number]-yj07y916412c 06/14/2015 06/14/2015 Oumar Gramajo MD f/u hxuy1abk-[id number]-mr7rou310782 06/14/2015 06/14/2015 Oumar Gramajo MD f/u [id number] 06/14/2015 06/14/2015 Oumar Gramajo MD f/u [id number]-95z48ec850l7 06/14/2015 06/14/2015 Oumar Gramajo MD f/u 039d29rb-1z90-3g6w-yd03-6n693m0147y4 06/14/2015 06/14/2015 Oumar Gramajo MD f/u 32x90x34-tt48-39xu-268r-c1o2w72b8cs2 06/14/2015 06/14/2015 Oumar Gramajo MD f/u 17t8289s-z90r-6616-58f6-36t2709277f9 06/14/2015 06/14/2015 Oumar Gramajo MD f/u 80e60b87-8q12-067u-6503-9b074c3p3k7a 06/14/2015 06/14/2015 Oumar Gramajo MD f/u 6z1k6281-8bk9-2qk2-q5ve-5gr1eh2vb0f6 06/14/2015 06/14/2015 Oumar Gramajo MD f/u 4x803665-6212-0hy5-21fo-7so65575416k 06/14/2015 06/14/2015 Oumar Gramajo MD f/u g1m12359-kp4n-0321-3601-i2p9jz4236l5 06/14/2015 06/14/2015 Oumar Gramajo MD f/u 9q5q3972-c125-1ex6-23g7-384e06c1q1z8 06/14/2015 06/14/2015 Oumar Gramajo MD f/u pt60s1ah-1527-1v30-29nr-6u0q3x4wmj6a 06/14/2015 06/14/2015 Oumar Gramajo MD f/u 3374994i-0513-47tv-t57s-3a4x788cmm28 06/14/2015 06/14/2015 Oumar Gramajo MD f/u 3a10109q-9d38-4o1m-j302-72a2py093gcr 06/14/2015 06/14/2015 Oumar Gramajo MD f/u z0i13y6o-rhme-5677-8557-935c6t31j4r5 06/14/2015 06/14/2015 Oumar Gramajo MD DEXA 9258i397-x3t7-7591-l74n-6w805846j122 07/27/2015 07/27/2015 Oumar Gramajo MD DEXA 95ot53g6-8640-221u-h956-475md83k3205 07/27/2015 07/27/2015 Oumar Gramajo MD DEXA q7929qj0-3769-446z-t501-0r64ip5910nj 07/27/2015 07/27/2015 Oumar Gramajo MD DEXA 05i3q47i-af9z-2253-b63k-q60g13v997y7 07/27/2015 07/27/2015 Oumar Gramajo MD DEXA xow90kf9-q5jh-4m51-4273-1m661n72n0c2 07/27/2015 07/27/2015 Oumar Gramajo MD DEXA s3v10g3h-607h-4y5f-2848-k1i6p8l03881 07/27/2015 07/27/2015 Oumar Gramajo MD DEXA 80c4yi85-4l4j-8s4j-9971-9a934v0w337c 07/27/2015 07/27/2015 Oumar Gramajo MD DEXA 84o9s500-74g2-94y9-a530-8lqox429978l 07/27/2015 07/27/2015 Oumar Gramajo MD DEXA rx38o30e-e4ax-343d-j46s-1f3sp96y9m8j 07/27/2015 07/27/2015 Oumar Gramajo MD DEXA [id number]-e532-43v578718whn 07/27/2015 07/27/2015 Oumar Gramajo MD DEXA 5096957d-1fj3-3521-6805-z18rr076926w 07/27/2015 07/27/2015 Oumar Gramajo MD DEXA 02988t1f-h410-691n-xg31-47780517bx8u 07/27/2015 07/27/2015 Oumar Gramajo MD DEXA 309mj07i-93c6-81b0-7062-d59ecu7bw773 07/27/2015 07/27/2015 Oumar Gramajo MD DEXA prw76ahs-gdv2-6cf9-7485-905u31111g72 07/27/2015 07/27/2015 Oumar Gramajo MD DEXA isnjq370-0968-2058-x35u-4024731r9514 07/27/2015 07/27/2015 Oumar Gramajo MD DEXA 2009rs2u-85wh-9cz1-n698-kk8o70u0efju 07/27/2015 07/27/2015 Oumar Gramajo MD DEXA 43y6ugzv-mt5w-655r-71oa-5p35s7aie19g 07/27/2015 07/27/2015 Oumar Gramajo MD DEXA 9881b5p2-vkjk-8rs0-894y-u0a8p1h468ir 07/27/2015 07/27/2015 MD PRAFUL Huang s9wd562z-816d-2k9d-mg03-2484i0us73rg 07/27/2015 07/27/2015 Oumar Gramajo MD f/u 293h40h5-5w7t-7077-se25-qk6753ai9646 10/04/2015 10/04/2015 Oumar Gramajo MD f/u 91435130-q62b-668x-748o-6862jv6844m3 10/04/2015 10/04/2015 Oumar Gramajo MD f/u 0660170g-7335-577y-z561-aq6t98887rr1 10/04/2015 10/04/2015 Oumar Gramajo MD f/u 88zk2zey-7oyz-57ma-d0d4-6u9pjm530z48 10/04/2015 10/04/2015 Oumar Gramajo MD f/u 136fx33e-gy1g-81b0-uv48-u744h44z8410 10/04/2015 10/04/2015 Oumar Gramajo MD f/u 637778so-l342-18i1-6of2-515rr586401c 10/04/2015 10/04/2015 Oumar Gramajo MD f/u 6q4gk2u6-1952-7181-h1h6-l45by213700z 10/04/2015 10/04/2015 Oumar Gramajo MD f/u zb670ko7-7tpu-92a2-e59x-33h10q8r8n8t 10/04/2015 10/04/2015 Oumar Gramajo MD f/u i7r668qv-4j7f-801z-y318-38691ihs669e 10/04/2015 10/04/2015 Oumar Gramajo MD f/u 631l8dv9-j883-43ki-0qn4-7e32sje30x70 10/04/2015 10/04/2015 Oumar Gramajo MD f/u x006u2d7-e3a2-8t35-taul-l6h7f89y4k37 10/04/2015 10/04/2015 Oumar Gramajo MD f/u 997l0750-44h9-77l2-1278-073r30etn886 10/04/2015 10/04/2015 Oumar Gramajo MD f/u 997875c2-70m7-8u58-v40n-4u4f0328e8bn 10/04/2015 10/04/2015 Oumar Gramajo MD f/u o3i268o9-7457-1210-p5d2-m4v6wjt93u4h 10/04/2015 10/04/2015 Oumar Gramajo MD f/u p35ect40-5a7v-57d5-2704-3696p5r9tg3a 10/04/2015 10/04/2015 Oumar Gramajo MD f/u 3w2vn12b-2zr5-6t00-v2b0-8639w673921r 10/04/2015 10/04/2015 Oumar Gramajo MD f/u a27aq209-srh9-794l-33fq-g8t094d83510 10/04/2015 10/04/2015 Oumar Gramajo MD labs x9001l3m-29hr-81c5-961p-18j3352c1d21 10/04/2015 10/04/2015 Oumar Gramajo MD labs 468948te-fpd2-4r86-c387-x1040ma407mm 10/04/2015 10/04/2015 Oumar Gramajo MD labs sy642574-513q-2s47-7q18-904a4mn8039o 10/04/2015 10/04/2015 Oumar Gramajo MD labs o70y3941-4ma2-40i0-o7up-ol99989m8938 10/04/2015 10/04/2015 Oumar Gramajo MD labs 86p4u17o-j2no-6dze-4105-0ool4x78u701 10/04/2015 10/04/2015 Oumar Gramajo MD labs 442av52u-6044-2w14-povf-49u506b68pdo 10/04/2015 10/04/2015 Oumar Gramajo MD labs 5l15s658-8m28-3u1j-1098-ptp1w8013a6c 10/04/2015 10/04/2015 Oumar Gramajo MD labs 254eyxu7-ur77-2s07-y110-yz67gh2278h0 10/04/2015 10/04/2015 Oumar Gramajo MD labs 8bq7594w-k565-9287-8sz9-3d0470318b9e 10/04/2015 10/04/2015 Oumar Gramajo MD labs u0u875d3-23c7-64z7-t3n6-yui1zs4939n8 10/04/2015 10/04/2015 Oumar Gramajo MD labs s6c6zyx0-c1zq-2nl5-102f-3895p400a2c8 10/04/2015 10/04/2015 Oumar Gramajo MD labs e6oc6434-r01n-8322-8713-35fr99pkimc3 10/04/2015 10/04/2015 Oumar Gramajo MD labs 5527579n-7hw6-531d-h9g9-dp8m1sx315y4 10/04/2015 10/04/2015 Oumar Gramajo MD labs 763143n1-chi8-1606-2voi-l58e6l02jszy 10/04/2015 10/04/2015 Oumar Gramajo MD labs 4106198w-4173-733g-i353-7ntde3669m2y 10/04/2015 10/04/2015 Oumar Gramajo MD labs 1236q11n-5p21-2885-pimd-u129e335497c 10/04/2015 10/04/2015 Oumar Gramajo MD labs 9p8u505z-57l3-8i8f-980r-1k05tc2sv2m3 10/04/2015 10/04/2015 Oumar Gramajo MD labs nc6j9320-26r7-9o92-mc89-uh41202hft1q 10/04/2015 10/04/2015 Oumar Gramajo MD Refill- Ultram 941e6337-s000-96p9-u560-642zy934d573 12/15/2015 12/15/2015 Oumar Gramajo MD Refill- Ultram wq51r7c3-a098-2gf1-1668-p53d0ouf41c1 12/15/2015 12/15/2015 Oumar Gramajo MD Refill- Ultram 2863zdci-r545-0kr9v544-2ou1-16bn-ty716m599l4m 12/15/2015 12/15/2015 Oumar Gramajo MD Refill- Ultram o6goo698-3z7l-6047-984b-3u6t298gx806 12/15/2015 12/15/2015 Oumar Gramajo MD Refill- Ultram 8q311cnv-y7co-59g2-ks28-0s58z2fy6tmr 12/15/2015 12/15/2015 Oumar Gramajo MD Refill- Ultram 714hsk7d-d43d-8074-6538-29mo0t74a143 12/15/2015 12/15/2015 Oumar Gramajo MD Refill- Ultram 19065ee0-65a1-6z55-n4ms-7q30sxp29m22 12/15/2015 12/15/2015 Oumar Gramajo MD Refill- Ultram 2641z6l4-360k-951x-cv38-311vh01d1kfd 12/15/2015 12/15/2015 Oumar Gramajo MD Refill- Ultram tu206126-91l3-91u5-g991-l7664g3jv4l9 12/15/2015 12/15/2015 Oumar Gramajo MD Refill- Ultram r336ias3-53tw-9b9r-gm86-c3w176z01337 12/15/2015 12/15/2015 Oumar Gramajo MD Refill- Ultram 11v1736l-41a0-1w61-u8m3-977z532hvo18 12/15/2015 12/15/2015 Oumar Gramajo MD Refill- Ultram 10739x72-l2ic-4550-o4x4-535zn1608kj3 12/15/2015 12/15/2015 Oumar Gramajo MD Refill- Ultram qi18u0p0-j4u2-222g-3236-1eg231o95377 12/15/2015 12/15/2015 Oumar Gramajo MD Refill- Ultram xx661x59-272y-1hz2-6747-671i2234631w 12/15/2015 12/15/2015 Oumar Gramajo MD Refill- Ultram 56g26z74-w217-4p4e-5by7-2v047z6835tl 12/15/2015 12/15/2015 Oumar Gramajo MD Refill- Ultram 3k36x7b8-v1y0-2843-3mvs-393pvp36xmvv 12/15/2015 12/15/2015 Oumar Gramajo MD [facility] FU pe8z7130-p1e7-7y60-a88z-440486n5q979 01/05/2016 01/05/2016 Oumar Gramajo MD [facility] FU lijbj623-2p05-4528-q805-2rqx8510y54m 01/05/2016 01/05/2016 Oumar Gramajo MD [facility] FU 26842531-k8xd-0pi7-u682-492qvu225op6 01/05/2016 01/05/2016 Oumar Gramajo MD [facility]U ovaek006-q53v-392o-b546-72fw4nbs9e9d 01/05/2016 01/05/2016 Oumar Gramajo MD [facility] FU 5m720nf2-9553-4gae-er33-z3q8efp7k830 01/05/2016 01/05/2016 Oumar Gramajo MD [facility] FU 077q2x1t-d666-372l-97t9-315uw1d5aj51 01/05/2016 01/05/2016 Oumar Gramajo MD [facility]U a67nj63f-f43d-0hjd-6896-d4lkm0pc7a29 01/05/2016 01/05/2016 Oumar Gramajo MD [facility]U h2x91lwn-6344-05c6-u8o7-6816h6c8l9z3 01/05/2016 01/05/2016 Oumar Gramajo MD [facility]U 3248r825-0ow3-90hk-vmy5-193bc39af1f0 01/05/2016 01/05/2016 Oumar Gramajo MD [facility] cl6i8f7d-552t-4p45-mv8o-39ee97684nk3 01/05/2016 01/05/2016 Oumar Gramajo MD [facility]U t3666f24-4744-6n3m-9a9o-q520xu4061l5 01/05/2016 01/05/2016 Oumar Gramajo MD [facility] 09m868c7-kn6o-6545-07t0-4ph7497a7l0v 01/05/2016 01/05/2016 Oumar Gramajo MD 3 [facility] FU 86873266-3128-29nv-xu45-y2v1a1gep3fo 01/05/2016 01/05/2016 Oumar Gramajo MD 3 [facility] FU 632v8i0d-i1i5-579i-rx8c-8iaz6v983l69 01/05/2016 01/05/2016 Oumar Gramajo MD 3 [facility] FU da11jez2-k364-579j-4qoc-10o8jh681s97 01/05/2016 01/05/2016 Oumar Gramajo MD tramadol s1zu3u0r-39o7-18ns-w2hq-y37871011a4g 03/28/2016 03/28/2016 Oumar Gramajo MD tramadol 3g4226ki-626u-3i67-n6i7-jz009o07d2dj 03/28/2016 03/28/2016 Oumar Gramajo MD tramadol 7w806995-n2i3-4xu1-g152-hlm395ez27l8 03/28/2016 03/28/2016 Oumar Gramajo MD tramadol 230bai6b-yf64-5c7r-8996-83v6hd17g5i5 03/28/2016 03/28/2016 Oumar Gramajo MD tramadol kar244zh-0616-178a-d501-1977hm9mx4b9 03/28/2016 03/28/2016 Oumar Gramajo MD tramadol 037g781v-8r42-4971-j7h2-s8xlk5oh8f55 03/28/2016 03/28/2016 Oumar Gramajo MD tramadol 267n2794-59f9-83wr-3u5m-gda5e2lsk9u8 03/28/2016 03/28/2016 Oumar Gramajo MD tramadol 201h7vxc-j2r6-2rm9-5470-7647ym78pf27 03/28/2016 03/28/2016 Oumar Gramajo MD tramadol 81rw8250-u9b9-63la-l4f8-12293u7g4ac6 03/28/2016 03/28/2016 Oumar Gramajo MD tramadol e4328u6q-9j85-14r6-c19o-4835z1397xwo 03/28/2016 03/28/2016 Oumar Gramajo MD tramadol 59l7093z-p08s-5hfi-1a10-q6286f28f570 03/28/2016 03/28/2016 Oumar Gramajo MD tramadol 83rf0r1j-k2mo-607o-565c-06449s4p0653 03/28/2016 03/28/2016 Oumar Gramajo MD tramadol 72cq08e2-252n-0m4f-5h03-1vl21p3z606z 03/28/2016 03/28/2016 Oumar Gramajo MD tramadol l74s5653-i92u-2054-4oqi-27wdqr9uv3t4 03/28/2016 03/28/2016 Oumar Gramajo MD MRI 89s86f55-4iq6-40d3-vof4-ar51rx044ec5 03/29/2016 03/29/2016 Oumar Gramajo MD MRI b6j687p1-0235-0365-qq15-83698rm39294 03/29/2016 03/29/2016 Oumar Gramajo MD MRI nb25bom7-6487-119w-606s-9s83xo46qijl 03/29/2016 03/29/2016 Oumar Gramajo MD MRI 11o915d6-0576-267y-976n-584d42ga594b 03/29/2016 03/29/2016 Oumar Gramajo MD MRI 712ug7bh-86j2-5edd-spy8-66kx5fl1j0z7 03/29/2016 03/29/2016 Oumar Gramajo MD MRI 51v29i89-31ix-82c3-9o52-xv477ck150xd 03/29/2016 03/29/2016 Oumar Gramajo MD MRI 25rfx203-58m1-40r2-3473-94ol704dctkz 03/29/2016 03/29/2016 Oumar Gramajo MD MRI 9z9p6280-29n9-0k7u-3rzb-1555955p5w62 03/29/2016 03/29/2016 Oumar Gramajo MD MRI 3vav96c5-5550-89wf-2qg4-f216kkywr7c0 03/29/2016 03/29/2016 Oumar Gramajo MD MRI zd520phx-54bt-8294-9fps-868751jc9u37 03/29/2016 03/29/2016 Oumar Gramajo MD MRI 0m458bq6-pkf2-9c1m-1ox9-fa8p2y1223b6 03/29/2016 03/29/2016 Oumar Gramajo MD MRI 7s452199-sbp9-7pda-1116-os9e3501r39h 03/29/2016 03/29/2016 Oumar Gramajo MD MRI 9w6w573s-4fi6-8519-in1h-t2e99651bn98 03/29/2016 03/29/2016 Oumar Gramajo MD [facility]U 4k08h3g3-2j22-9671-90d0-94awnmrlpb21 04/18/2016 04/18/2016 Oumar Gramajo MD [facility]U 79w70r6u-ux36-4h86-981f-cs8884529m04 04/18/2016 04/18/2016 Oumar Gramajo MD [facility] yg34ino0-g5x2-45ni-96i9-q5r579235l77 04/18/2016 04/18/2016 Oumar Gramajo MD [facility]U 7or899zx-2m9r-4912-38uu-02qv0139u326 04/18/2016 04/18/2016 Oumar Gramajo MD [facility] c8m8c07u-l288-1052-d85b-g491owcvb365 04/18/2016 04/18/2016 Oumar Gramajo MD [facility] 8345f250-0474-656k-0k23-7840fvb3u9l7 04/18/2016 04/18/2016 Oumar Gramajo MD 3 [facility] FU a5v0o6q3-78r3-82ky-9p8y-7zgu962pa5um 04/18/2016 04/18/2016 Oumar Gramajo MD [facility] FU 32q26nj3-0b4b-3293-6w0l-4ac464m93892 04/18/2016 04/18/2016 Oumar Gramajo MD [facility]U 65qw5268-4103-53x5-7184-22564986g43m 04/18/2016 04/18/2016 Oumar Gramajo MD [facility]U 18ew87rs-765a-6l1a-sfc3-4v6397l356y0 04/18/2016 04/18/2016 Oumar Gramajo MD [facility]U 9ft21u8j-736w-75x7-e2g4-h1s3754191n4 04/18/2016 04/18/2016 Oumar Gramajo MD [facility] 7k6997vi-4478-8151-l064-55325o194830 04/18/2016 04/18/2016 Oumar Gramajo MD [facility] 4jj1qo82-9ww6-979s-h5p5-1015129yqyd6 04/20/2016 04/20/2016 Oumar Gramajo MD [facility] rx 92b5snx4-4bdc-174k-c9zi-1896he646jvj 04/20/2016 04/20/2016 Oumar Gramajo MD [facility] rx [id number]-n9r7-6a96-agu3-820f07d2i8b8 04/20/2016 04/20/2016 Oumar Gramajo MD [facility] rx [id number]-gw27-4105-1tz6-96e729259035 04/20/2016 04/20/2016 Oumar Gramajo MD [facility] rx [id number]-9e15-1qd7-ff7o-t243bl28ckma 04/20/2016 04/20/2016 Oumar Gramajo MD [facility] rx [id number]-k5l5-135v-xza8-58213050twr1 04/20/2016 04/20/2016 Oumar Gramajo MD [facility] rx hk4j6h11-h655-3tvr-0y77-c4a5d350x385 04/20/2016 04/20/2016 Oumar Gramajo MD [facility] rx [id number]-gr4p-03206h530tb0 04/20/2016 04/20/2016 Oumar Gramajo MD [facility] rx [id number]-1ruc-p971-c20nsmw9bz5o 04/20/2016 04/20/2016 Oumar Gramajo MD [facility] rx zi2496s3-5598-917v-066e-7gng3539t91f 04/20/2016 04/20/2016 Oumar Gramajo MD [facility] rx [id number]-c34e-211e-2as0-brp1mrmk0t0g 04/20/2016 04/20/2016 Oumar Gramajo MD [facility] rx gb9ssc90-9iu3-68o6-wz5j-4u462x16n5za 04/20/2016 04/20/2016 Oumar Gramajo MD Refill- Tramadol 1wl45066-2ez2-7621-8au4-8s88b942rq24 07/04/2016 07/04/2016 Oumar Gramajo MD Refill- Tramadol 1p7sn99r-4qe5-6320-274p-q4f2b58uj47v 07/04/2016 07/04/2016 Oumar Gramajo MD Refill- Tramadol 618l54wo-932w-544f-bj7h-o9018galsib0 07/04/2016 07/04/2016 Oumar Gramajo MD Refill- Tramadol 44b468v3-pf4m-4yp4-i379-h5yrd4lq6zps 07/04/2016 07/04/2016 Oumar Gramajo MD Refill- Tramadol z5q5eo4k-8d47-342w-4d11-ci05164t9n0g 07/04/2016 07/04/2016 Oumar Gramajo MD Refill- Tramadol 67gc8gxv-4p90-3763-1666-p3j2891856qi 07/04/2016 07/04/2016 Oumar Gramajo MD Refill- Tramadol 60a0146p-45d8-39vy-6h82-agf36f919u4k 07/04/2016 07/04/2016 Oumar Gramajo MD Refill- Tramadol 21688d40-i9w0-2k34-47a5-0i60447z9053 07/04/2016 07/04/2016 Oumar Gramajo MD Refill- Tramadol 9d6r1985-8t1h-9vx8-y606-2m458e417cu2 07/04/2016 07/04/2016 Oumar Gramajo MD Refill- Tramadol i5vy05fh-2ajy-645c-4335-lnz6vlx768n7 07/05/2016 07/05/2016 Oumar Gramajo MD Refill- Tramadol 00189f3t-2665-6uux-5v5j-t83602u864t1 07/05/2016 07/05/2016 Oumar Gramajo MD Refill- Tramadol cg820a7d-7u9k-2b43-2rm2-3509e516493h 07/05/2016 07/05/2016 Oumar Gramajo MD Refill- Tramadol 0y0og083-8179-0919-8204-789a21565i06 07/05/2016 07/05/2016 Oumar Gramajo MD Refill- Tramadol 1437wy05-07rh-6iwu-b400-v0scn62bo1o6 07/05/2016 07/05/2016 Oumar Gramajo MD Refill- Tramadol 14vu1y71-0664-835q-4055-36bv78q374i4 07/05/2016 07/05/2016 Oumar Gramajo MD Refill- Tramadol 1p37f02j-7sbv-052g-o051-3uxo86t08432 07/05/2016 07/05/2016 Oumar Gramajo MD Refill- Tramadol q6x18y8r-g0p0-8k79-f508-b0li98c88yum 07/05/2016 07/05/2016 Oumar Gramajo MD NS APPT 07/18/16 5ppdaw3u-8885-0866-kf23-sg8162dz7573 07/18/2016 07/18/2016 MD OSCAR Huang APPT 07/18/16 006sd911-z3at-4prh-c884-0mfko2i64znj 07/18/2016 07/18/2016 Oumar Gramajo MD NS APPT 07/18/16 n217l65p-7678-6r24-7ej6-7i9333d2467y 07/18/2016 07/18/2016 Oumar Gramajo MD NS APPT 07/18/16 4v9n18kt-2i35-604u-n3e2-6eu98014cmv4 07/18/2016 07/18/2016 Oumar Gramajo MD NS APPT 07/18/16 21n8zhd3-8u34-4s24-2kr6-933emgu783wt 07/18/2016 07/18/2016 Oumar Gramajo MD NS APPT 07/18/16 52u5cd3q-008p-0518-xz2o-901b1bqz02r4 07/18/2016 07/18/2016 Oumar Gramajo MD NS APPT 07/18/16 52x2m922-0ud9-6nf5-w968-g975v78c39t8 07/18/2016 07/18/2016 Oumar Gramajo MD [facility] FU 2io4x573-24vu-3a64-8yqm-wi7j1cpve7pl 08/08/2016 08/08/2016 Oumar Gramajo MD [facility] FU 7de9o5tr-57n4-5c59-at44-f83kxu2ggv9z 08/08/2016 08/08/2016 Oumar Gramajo MD [facility]U auk38149-bf1g-5238-6y43-q49028c6u845 08/08/2016 08/08/2016 Oumar Gramajo MD [facility]U 470dvsy2-ilne-752y-wx10-035q62o8cko9 08/08/2016 08/08/2016 Oumar Gramajo MD [facility]U x3uaj718-78i0-899l-k7w3-568u215d8ngm 08/08/2016 08/08/2016 Oumar Gramajo MD [facility] 363769fh-s098-57o4-e03v-l4222on48fd1 08/08/2016 08/08/2016 Oumar Gramajo MD TRAMADOL REFILL 9d5ecm76-13b4-8e4i-3095-a33iue7p20u3 09/27/2016 09/27/2016 Oumar Gramajo MD TRAMADOL REFILL 109z5w42-hpq2-95zf-7yu6-t1n60s94t9qo 09/27/2016 09/27/2016 Oumar Gramajo MD TRAMADOL REFILL 292shju4-3t53-2d23-t28e-poi36277394m 09/27/2016 09/27/2016 Oumar Gramajo MD TRAMADOL REFILL 48269d60-g4w8-5c2s-8p57-8j721759dz95 09/27/2016 09/27/2016 Oumar Gramajo MD Refill- Tramadol 27212n3h-7840-90wq-h195-955e6x084732 10/25/2016 10/25/2016 Oumar Gramajo MD Refill- Tramadol [id number] 10/25/2016 10/25/2016 Oumar Gramajo MD Refill- Tramadol [id number] 10/25/2016 10/25/2016 Oumar Gramajo MD [id number] 12/17/2016 12/17/2016 Oumar Gramajo MD [id number] 12/17/2016 12/17/2016 Oumar Gramajo MD [id number] 12/18/2016 12/18/2016 Oumar Gramajo [facility] [id number] MAGALY BENITEZ MD 02/13/2018 02/17/2018 [facility] Discharged Inpatient (obs) [id number] MAGALY BENITEZ MD 06/30/2018 07/01/2018 [facility] Discharged Inpatient [id number] MAGALY BENITEZ MD 09/13/2018 09/16/2018 [facility] Discharged Inpatient [id number] SKYLAR GARZA MD 12/29/2018 01/02/2019 [facility] Departed Emergency Room [id number] BAMBI BEEBE MD 03/04/2019 03/04/2019 [facility] Procedures Procedure Code Date Perfomer Comments Source INSERTION OF INFUSION DEV INTO SUP VENA CAVA, PERC APPROACH [id number] 12/31/2018 LOYDA [facility] Computed tomography of chest with contrast [id number] 12/30/2018 [facility] X-ray of chest, two views [id number] 09/14/2018 [facility] Computed tomography of lumbar spine with contrast [id number] 02/13/2018 FAHNBULLEH [facility] Ultrasound, renal [id number] 02/13/2018 [facility] Assessment and Plan No Data Provided for This Section Plan of Care Plan of Care Date Source Discharge Date 03/04/19 6:07pm Disposition HOME, SELF-CARE Condition at Discharge Stable Instructions/Education Provided Joint Pain Sprains - Knee Forms Provided Work/School Excuse Prescriptions See Medication Section Referrals DIMPLE MATAMOROS Address: [address] [place] [address] [place] [address] CLINTON GAMA MD Address: [address] [place] [address] [address] [place] [address] Additional Instructions/Education 1. follow up with orthopedic doctor in 1-2 days without fail 2. return to ed as needed 3. knee immobilizer and walker/crutches 03/04/2019 [facility] Discharge Date 07/01/18 10:08am Disposition HOME, SELF-CARE Instructions/Education Provided COPD Prescriptions See Medication Section Referrals MAGALY BENITEZ MD (Pulmonary) Order Date: 1 Week Entered Date: 07/01/2018 8:24am Address: [facility] [address] Additional Instructions/Education Diet as tolerated precautions for coumadin if any symptoms persist return to the ER 07/01/2018 [facility] Social History Social History Date Source Social [...] Stop Date Current every day smoker 03/04/2019 [facility] Social History ElementQualifiersDate Reported Tobacco Use: . [...] colon cancer Not Recorded 02/19/2017 3:11am 03/04/2019 [facility] Relationship Condition Age at Onset Recorded Date/Time 35 Father FH: colon cancer Not Recorded 02/19/2017 3:11am 07/01/2018 [facility] Advance Directives Order Name Results Value Date Source Advance Directives Advance Directives Directive Response Recorded Date/Time Does the patient have an advance directive? No 12/30/18 12:53am If yes, is advance directive on file with [facility]? No 09/12/18 3:31pm If not on file with [facility] will patient provide a copy? No 09/12/18 3:31pm Do you have a Directive to Physician? No 03/04/19 3:00pm Do you have a Medical Power of Pipelayer? No 03/04/19 3:00pm Do you have an [...] rights and responsibilities? Yes 03/04/19 3:00pm 03/04/2019 [facility] Advance Directives Advance Directives Directive Response Recorded Date/Time Does the patient have an advance directive? No 06/30/18 5:02am If yes, is advance directive on file with [facility]? No 06/30/18 5:02am If not on file with [facility] will patient provide a copy? No 06/30/18 5:02am Do you have a Directive to Physician? No 06/29/18 10:23pm Do you have a Medical Power of Pipelayer? No 06/29/18 10:23pm Do you have an [...] rights and responsibilities? Yes 06/29/18 10:23pm 07/01/2018 [facility] Functional Status No Data Provided for This Section
--- NOTE | 2019-07-18 10:59 | NUR ---
PT UPDATED PLAN OF CARE
[2019-07-18] MEDS ORDERED: ALBUTEROL SULF 0.083% NEB SOLN 3 ML NEB NEB SCH (11:00)
[2019-07-18] MEDS ORDERED: NICOTINE 14 MG/EA PATCH TOP SCH (11:00)
[2019-07-18] MEDS ORDERED: ENOXAPARIN SODIUM INJ 100 MG/ML SYR SC ONE (11:00)
[2019-07-18] MEDS: CEFTRIAXONE SOD 2 GM/NS 100 ML 100 ML IV SCH (11:10)
[2019-07-18] MEDS: SODIUM CHLORIDE 0.9% 1000ML 1,000 ML IV SCH (11:24)
[2019-07-18 11:50] VITALS: BP 147/65
--- NOTE | 2019-07-18 11:50 | NUR ---
PATIENT RECEIVED FROM ER PER STRETCHER. ALERT AND VERBALLY RESPONSIVE, RESPIRATION EVEN AND UNLABORED, O2 IN PLACE VIA N/C. ABDOMEN SOFT AND NON DISTENDED. DENIED PAIN AT THIS TIME. ABLE TO ASSIST WITH TRANSFER FROM STRETCHER TO BED. ALL PERSONAL ITEMS CLOSE TO PATIENT. ORIENTED TO SURROUNDINGS, BED IN LOWER POSITION AND LOCKED. CALL LIGHT AT EASY REACH. INSTRUCTED TO CALL FOR ASSISTANCE NEEDED.
[2019-07-18] MEDS ORDERED: TRAMADOL HCL 50 MG TAB PO PRN (12:45)
[2019-07-18] MEDS: AZITHROMYCIN 500MG/NS 250 ML 250 ML IV SCH (12:53)
[2019-07-18 13:02] VITALS: BP 147/65
--- NOTE | 2019-07-18 13:16 | Pre Op History & Physical ---
CHIEF COMPLAINT: Dyspnea and congestion. HISTORY OF PRESENT ILLNESS: The patient is a 74-year-old woman. She has a history of severe COPD. She uses oxygen at home. She also has bronchodilators and nebulizers at home. She has a history of two prior pulmonary emboli and is on warfarin chronically. The patient came to the ER complaining of worsening dyspnea over the past several days. She noted congestion and cough. Her cough was productive with discolored phlegm. PAST SURGICAL HISTORY: 1. Status post back surgery x2. 2. Status post knee surgery. MEDICAL HISTORY: 1. History of pulmonary embolism x2. 2. COPD. 3. Arthritis. 4. Hypertension. ALLERGIES: NO KNOWN DRUG ALLERGIES. FAMILY HISTORY: Family history is noncontributory. SOCIAL HISTORY: The patient quit smoking. She is not an active drinker. REVIEW OF SYSTEMS: She denies any fever. She has no headache. She has no neck pain. She has no chest pain. She is complaining of some dyspnea and some cough. She has no abdominal pain. She has no nausea or vomiting. She has no leg edema. PHYSICAL EXAMINATION: VITAL SIGNS: The patient is afebrile. The vital signs are stable. HEENT: Shows no facial swelling or erythema. LYMPHATIC: Shows no submandibular, cervical, or supraclavicular adenopathy. CARDIAC: Reveals regular rate and rhythm with normal S1, S2. There are no murmurs or rubs heard. LUNGS: Auscultation of lungs reveals rhonchorous breath sounds bilaterally. There is no wheezing. ABDOMEN: Soft, nontender. There is no rebound or guarding. EXTREMITIES: Show no leg edema or calf tenderness. There is no cyanosis or clubbing. SKIN: Shows no rashes. IMPRESSION: 1. Chronic obstructive pulmonary disease with acute exacerbation. 2. History of recurrent pulmonary emboli. 3. Hypertension. 4. Hypomagnesemia. PLAN: 1. Continue antibiotics and IV Solu-Medrol. 2. Continue oxygen. 3. Increase warfarin to 5 mg a day and monitor INR. 4. Out of bed as tolerated. MD CALEB Bazzi/ZACHARIAH /[id number]
[2019-07-18] MEDS: METHYLPREDNISOLONE SOD SUCC 125 MG/2ML VIAL IV SCH ×2 (14:20→22:19)
[2019-07-18] MEDS: AMLODIPINE BESYLATE 5 MG TAB PO SCH (14:20)
[2019-07-18] MEDS: BENAZEPRIL HCL 10 MG TAB PO SCH (14:20)
[2019-07-18] MEDS: IPRATROPIUM BROMIDE 0.02% 2.5 ML NEB NEB SCH ×3 (14:25→23:00)
[2019-07-18] MEDS: ALBUTEROL SULF 0.083% NEB SOLN 3 ML NEB NEB SCH ×3 (14:25→23:00)
--- NOTE | 2019-07-18 16:22 | NUR ---
MD IN TO SEE PATIENT. HOME MEDICATIONS RENEWED.
[2019-07-18] MEDS: WARFARIN SOD 5 MG TAB PO SCH (17:10)
[2019-07-18 17:28] VITALS: BP 130/20
[2019-07-18 20:00] VITALS: BP 151/66
[2019-07-18 20:57] LABS: CREATINE KINASE MB 3.1 ng/mL (0-5.0)
[2019-07-18 21:00] VITALS: BP 151/66
[2019-07-18] MEDS ORDERED: ZOLPIDEM TARTRATE 5 MG TAB PO PRN (21:00)
[2019-07-18] MEDS: PRAVASTATIN 20 MG TAB PO SCH (21:36)
[2019-07-19] VITALS (8 sets, daily range): BP systolic 131–163; BP diastolic 59–75
[2019-07-19] MEDS: SODIUM CHLORIDE 0.9% 1000ML 1,000 ML IV SCH ×2 (00:03→06:41)
[2019-07-19] MEDS: ALBUTEROL SULF 0.083% NEB SOLN 3 ML NEB NEB SCH ×6 (03:00→23:00)
[2019-07-19] MEDS: IPRATROPIUM BROMIDE 0.02% 2.5 ML NEB NEB SCH ×6 (03:00→23:00)
--- NOTE | 2019-07-19 04:07 | NUR ---
Patient refused to take shower at this time. Patient stated that "I want to wait my daughter she will gonna bath me". Will continue to monitor.
[2019-07-19] MEDS: METHYLPREDNISOLONE SOD SUCC 125 MG/2ML VIAL IV SCH ×3 (05:58→20:54)
--- NOTE | 2019-07-19 06:15 | NUR ---
Patient was complaining left sternal chest pain. Notified to MD Dat ordered IV morphine 2mg once and stat chest x-ray and sta EKG at this time.
[2019-07-19 06:16] LABS: BASOPHILS % 0.1 % (0.0-1.0); HEMATOCRIT 43.3 % (34.2-44.1); HEMOGLOBIN 14.2 g/dL (12.0-16.0); LYMPHOCYTES # (AUTO) 1.7 (1.0-3.2); LYMPHOCYTES % 16.2 % (18.0-39.1); MEAN CORPUSCULAR HGB CONC 32.8 g/dL (31-35); MEAN CORPUSCULAR VOLUME 97.5 fL (81-99); MONOCYTES # (AUTO) 0.2 (0.2-0.8); MONOCYTES % 2.3 % (4.4-11.3); NEUTROPHILS # (AUTO) 8.6 (2.1-6.9); NEUTROPHILS % 80.9 % (38.7-80.0); PLATELET COUNT 259 x10e3/uL (140-360); RED BLOOD COUNT 4.44 x10e6/uL (3.6-5.1); RED CELL DISTRIBUTION WIDTH 15.9 % (11.7-14.4)
[2019-07-19] MEDS ORDERED: MORPHINE SULFATE 2 MG/ML SYR 1ML IV STA (06:20)
[2019-07-19 06:55] LABS: ALANINE AMINOTRANSFERASE 21 IU/L (0-55); ALBUMIN 3.2 g/dL (3.5-5.0); ALBUMIN/GLOBULIN RATIO 0.9 (0.8-2.0); ALKALINE PHOSPHATASE 90 IU/L (40-150); ANION GAP 13.8 mmol/L (8-16); BLOOD UREA NITROGEN 19 mg/dL (7-26); BUN/CREATININE RATIO 25 (6-25); CALCIUM 8.6 mg/dL (8.4-10.2); CARBON DIOXIDE 25 mmol/L (22-29); CHLORIDE 106 mmol/L (98-107); CREATININE, SERUM 0.76 mg/dL (0.57-1.11); EST GLOMERULAR FILTRATION RATE > 60 ML/MIN (60-); GLUCOSE 143 mg/dL (74-118); POTASSIUM 4.8 mmol/L (3.5-5.1); SODIUM 140 mmol/L (136-145)
--- NOTE | 2019-07-19 06:57 | NUR ---
Patient out from the unit at this time for chest x-ray.
[2019-07-19 06:58] LABS: MAGNESIUM 0.8 MG/DL (1.3-2.1)
[2019-07-19 07:06] LABS: INR 1.26; PROTHROMBIN TIME 16.4 seconds (11.9-14.5)
--- NOTE | 2019-07-19 07:06 | NUR ---
Report given to oncoming nurse. No issued noted.
[2019-07-19 07:19] LABS: CREATINE KINASE MB 1.9 ng/mL (0-5.0)
--- NOTE | 2019-07-19 07:19 | NUR ---
PATIENT BACK TO UNIT FROM RADIOLOGY. ASSISTED TO THE RESTROOM AND BACK TO BED. O2 IN PLACE VIA N/C. RESPIRATORY CALLED AND NEB TREATMENT GIVEN. BED IN LOWER POSITION, CALL LIGHT AT REACH.
--- NOTE | 2019-07-19 07:44 | Diagnostic Imaging Report ---
EXAMINATION: PA and lateral views of the chest. COMPARISON: Portable chest 07/18/2019 CLINICAL HISTORY: COPD, with exacerbation DISCUSSION: Lines/tubes: None. Lungs: The lungs are hyperinflated, consistent with COPD. No consolidation. Pleura: Small left pleural effusion. Heart and mediastinum: Enlarged cardiac silhouette Central pulmonary venous congestion and mild perihilar interstitial opacities likely reflecting mild edema Bones and soft tissues: No acute bony abnormalities. Degenerative changes in the thoracic spine IMPRESSION: Enlarged cardiac silhouette with central pulmonary venous congestion and mild perihilar or special edema Signed by: Dr. Jethro Ribeiro M.D. on 07/19/2019 7:41 AM
[2019-07-19 08:53] LABS: LYMPHOCYTES % (MANUAL) 16 % (19-48); NEUTROPHILS % (MANUAL) 84 % (40-74)
[2019-07-19 08:54] LABS: SMUDGE CELLS FEW
[2019-07-19 08:56] LABS: PLATELET ESTIMATE ADEQUATE; PLATELET MORPHOLOGY COMMENT FEW LARGE; RBC MORPHOLOGY COMMENT NORMAL
[2019-07-19] MEDS ORDERED: FUROSEMIDE INJ 10 MG/ML 2 ML VIAL IV NR (09:00)
[2019-07-19] MEDS ORDERED: ENOXAPARIN INJ 80 MG/0.8 ML SYR SC NR (09:00)
[2019-07-19] MEDS ORDERED: METHYLPREDNISOLONE SOD SUCC 125 MG/2ML VIAL IV SCH (09:00)
[2019-07-19] MEDS: AMLODIPINE BESYLATE 5 MG TAB PO SCH (09:44)
[2019-07-19] MEDS: MAGNESIUM OXIDE 400 MG TAB PO SCH ×2 (09:44→16:20)
[2019-07-19] MEDS: BENAZEPRIL HCL 10 MG TAB PO SCH (09:44)
--- NOTE | 2019-07-19 11:59 | Progress Note ---
DATE: SUBJECTIVE: The patient reports excessive sweating last night. She has some additional dyspnea and congestion. She also had some chest discomfort earlier this morning and received morphine. Her EKG was normal and her chest x-ray showed no change. PHYSICAL EXAMINATION: VITAL SIGNS: The patient is afebrile. The blood pressure is 163/72 and the saturation is 95% on 3 L. HEENT: Shows no facial swelling or erythema. CARDIAC: Reveals regular rate and rhythm with normal S1 and S2. LUNGS: Auscultation of lungs reveals wheezes in both lung cordero. ABDOMEN: Soft, nontender. There is no rebound or guarding. EXTREMITIES: Show no leg edema or calf tenderness. There is no cyanosis or clubbing. SKIN: Shows no rashes. NEUROLOGICAL: Shows no focal abnormalities. IMPRESSION: 1. Chronic obstructive pulmonary disease with acute exacerbation. 2. Hypomagnesemia. 3. History of recurrent pulmonary emboli. 4. Hypertension. 5. Night sweats. PLAN: 1. Stop IV fluid and give Lasix x1 dose. 2. Continue anticoagulation. 3. Continue Solu-Medrol and bronchodilators. 4. Urinalysis and cultures to rule out any occult infection. Demarcus Rodriguez MD [facility]/MEDL /[id number]
[2019-07-19] MEDS: AZITHROMYCIN 500MG/NS 250 ML 250 ML IV SCH (13:51)
[2019-07-19] MEDS ORDERED: FUROSEMIDE INJ 10 MG/ML 4 ML VIAL ONE (14:00)
[2019-07-19] MEDS: CEFTRIAXONE SOD 2 GM/NS 100 ML 100 ML IV SCH (14:19)
[2019-07-19 15:23] LABS: CREATINE KINASE MB 1.8 ng/mL (0-5.0)
--- NOTE | 2019-07-19 15:59 | Diagnostic Imaging Report ---
Examination: Single AP view of the chest. COMPARISON: Chest 2 views 05/19/2019 INDICATION: PICC line placement IMPRESSION: 1. Lines and Tubes: Interval placement of right-sided PICC line, tip projecting in the mid SVC. 2. Otherwise no significant interval change. Signed by: Dr. Jethro Ribeiro M.D. on 07/19/2019 3:56 PM
[2019-07-19] MEDS: WARFARIN SOD 5 MG TAB PO SCH (16:20)
[2019-07-19] MEDS: PRAVASTATIN 20 MG TAB PO SCH (20:54)
[2019-07-20] VITALS (8 sets, daily range): BP systolic 105–155; BP diastolic 59–75
[2019-07-20] MEDS: ALBUTEROL SULF 0.083% NEB SOLN 3 ML NEB NEB SCH ×6 (01:00→23:00)
[2019-07-20] MEDS: IPRATROPIUM BROMIDE 0.02% 2.5 ML NEB NEB SCH ×6 (01:00→23:00)
--- NOTE | 2019-07-20 05:36 | NUR ---
Patient refused to take bath at this time. Patient stated that " I do not want to touch all I want is sleep now".
[2019-07-20 05:55] LABS: ALANINE AMINOTRANSFERASE 30 IU/L (0-55); ALBUMIN 3.2 g/dL (3.5-5.0); ALBUMIN/GLOBULIN RATIO 1.2 (0.8-2.0); ALKALINE PHOSPHATASE 82 IU/L (40-150); ANION GAP 13.2 mmol/L (8-16); BLOOD UREA NITROGEN 25 mg/dL (7-26); BUN/CREATININE RATIO 32 (6-25); CALCIUM 8.6 mg/dL (8.4-10.2); CARBON DIOXIDE 31 mmol/L (22-29); CHLORIDE 101 mmol/L (98-107); CREATININE, SERUM 0.79 mg/dL (0.57-1.11); EST GLOMERULAR FILTRATION RATE > 60 ML/MIN (60-); GLUCOSE 157 mg/dL (74-118); MAGNESIUM 2.6 MG/DL (1.3-2.1); POTASSIUM 4.2 mmol/L (3.5-5.1); SODIUM 141 mmol/L (136-145)
[2019-07-20 06:36] LABS: INR 1.67; PROTHROMBIN TIME 20.3 seconds (11.9-14.5)
--- NOTE | 2019-07-20 07:10 | NUR ---
Report given to oncoming nurse, walking round done.
[2019-07-20] MEDS ORDERED: SODIUM CHLORIDE 0.9% 250ML 250 ML ONE (07:22)
--- NOTE | 2019-07-20 08:30 | NUR ---
Patient refuses to take a shower. Offered options. Patient states " I will take a shower this afternoon"
[2019-07-20] MEDS: METHYLPREDNISOLONE SOD SUCC 125 MG/2ML VIAL IV SCH ×2 (08:36→21:03)
[2019-07-20] MEDS: AZITHROMYCIN 500MG/NS 250 ML 250 ML IV SCH (08:37)
[2019-07-20] MEDS: MAGNESIUM OXIDE 400 MG TAB PO SCH ×2 (08:37→15:23)
[2019-07-20] MEDS: BENAZEPRIL HCL 10 MG TAB PO SCH (08:37)
[2019-07-20] MEDS: AMLODIPINE BESYLATE 5 MG TAB PO SCH (08:37)
[2019-07-20] MEDS: CEFTRIAXONE SOD 2 GM/NS 100 ML 100 ML IV SCH (09:38)
--- NOTE | 2019-07-20 09:43 | NUR ---
EDUCATED ABOUT IMM, SIGNED, FILED IN CHART, WITH COPY LEFT WITH FAMILY AT BEDSIDE.
--- NOTE | 2019-07-20 13:05 | Consultation ---
DATE OF CONSULTATION: 07/20/2019 INFECTIOUS DISEASE CONSULT REASON FOR CONSULTATION: Night sweats. Thank you, Dr. Rodriguez, for asking me to see this patient, who was admitted through the emergency department. HISTORY OF PRESENT ILLNESS: The patient is a 74-year-old woman, referred for night sweats. She presented to the emergency department on 07/18/2019 with difficulty breathing. She developed progressive shortness of breath with cough and scant sputum a few days prior. She had associated intermittent sweats as well as subjective fever. There was no chest pain, hemoptysis, or weight loss. There is also no history of foreign travel or TB exposure. The patient developed increased sweating after nicotine patch application, which resolved with removal of the nicotine pouch. In the emergency department, the patient was noted to have temperature of 97.8 degrees Celsius, pulse rate 88, respiratory rate 22, blood pressure 165/67, and oxygen saturation 75% on room air, which improved to 99% on 2 L of oxygen by nasal cannula. Initial laboratory studies showed blood leukocyte count of 14,850 with 49.9% neutrophils, BUN 19, and creatinine 0.76. Chest x-ray showed emphysematous changes of the lungs and mild patchy bibasilar opacities. PAST MEDICAL HISTORY: Hypertension, hyperlipidemia, coronary artery disease, chronic obstructive pulmonary disease, deep venous thrombosis, pulmonary embolism, rheumatoid arthritis, varicose veins, and tobacco use disorder. PAST SURGICAL HISTORY: Bilateral cataract surgery, cholecystectomy, hysterectomy, lower back surgery 3 times, right knee replacement and left wrist open reduction and internal fixation. ALLERGIES: NO KNOWN DRUG ALLERGIES. MEDICATIONS: See MAR. The current antibiotics are ceftriaxone 1 g IV piggyback q.24 hours and azithromycin 500 mg IV piggyback q.24 hours. IMMUNIZATION: The patient received pneumococcal vaccine in the past. FAMILY HISTORY: Noncontributory. SOCIAL HISTORY: She still smokes one-pack of cigarettes a day and has been smoking for many years. She denies alcohol and recreational drug use. REVIEW OF SYSTEMS: As per history of present illness. The patient feels better and admission and management. She denies fever and chills; the sweating has subsided since removal of the nicotine patch. Cough and shortness of breath improved and she has little or no sputum production. There is no nausea, vomiting, diarrhea, abdominal pain, and dysuria. She had bilateral leg swelling on admission, which improved. She reports weight gain and has not had weight loss. PHYSICAL EXAMINATION: GENERAL: No acute distress. VITAL SIGNS: T-max 98.5, pulse rate 105, respiratory rate 20, and blood pressure 155/72. HEENT: Normocephalic. There is no icterus or injection of conjunctivae. There is no ear or nasal discharge. Moist oral mucosa. No pharyngeal erythema or exudate. NECK: Supple. No meningismus. LUNGS: Decreased breath sounds bilaterally with few rhonchi. HEART: Normal S1 and S2. Tachycardia. ABDOMEN: Soft and nontender. EXTREMITIES: There is no edema, clubbing, or cyanosis. SKIN: There is no acute erythema. 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 Nonfocal. LABORATORY AND DIAGNOSTICS: 07/19/2019 WBC 10,500, hemoglobin 14.2, platelets 259,000, neutrophils 80.9, lymphocytes 16.2, monocytes 2.3, eosinophils 0, and basophils 0.1. 07/20/2019 BUN 25, creatinine 0.79 and troponin 0.011. Blood culture, no growth. IMPRESSION: 1. Chronic obstructive pulmonary disease with acute exacerbation. 2. Sweating resolved, etiology unclear. 3. Tobacco use disorder. PLAN: 1. Observe for new symptoms in addition, or recurrence or worsening of the current symptom. 2. Smoking cessation counseling has been provided to the patient. 3. Bronchodilators and steroids per Pulmonary Service. MD GLENN Cobb/ZACHARIAH /[id number] MTDD
--- NOTE | 2019-07-20 13:45 | Progress Note ---
DATE: SUBJECTIVE: The patient feels better than yesterday. She has less dyspnea and less cough. She has no chest pain. PHYSICAL EXAMINATION: VITAL SIGNS: The patient is afebrile. The blood pressure is 133/60, saturation is 100%, pulse is 94. HEENT: Shows no facial swelling or erythema. The nasal mucosa is normal. CARDIAC: Reveals a regular rate and rhythm with a normal S1 and S2. There are no murmurs or rubs heard. LUNGS: Auscultation of lungs reveals clear breath sounds bilaterally. There is no wheezing. ABDOMEN: Soft, nontender. There is no rebound or guarding. EXTREMITIES: Show no leg edema or calf tenderness. IMPRESSION: 1. Chronic obstructive pulmonary disease with acute exacerbation. 2. Hypermagnesemia. 3. History of recurrent pulmonary emboli. 4. Hypertension. PLAN: 1. Continue Solu-Medrol. 2. Continue anticoagulation. 3. Bronchodilators. 4. Lasix x1 today. 5. Possible discharge tomorrow. Demarcus Rodriguez MD [facility]/MEDL /[id number]
[2019-07-20] MEDS ORDERED: FUROSEMIDE INJ 10 MG/ML 2 ML VIAL IV ONE (14:00)
[2019-07-20] MEDS: WARFARIN SOD 5 MG TAB PO SCH (15:23)
--- NOTE | 2019-07-20 16:39 | NUR ---
ERIBERTO asked Dr. Alfaro what was dc plan for pt. He states "home soon." Addendum: 07/20/19 at 1758 by Pamela Bartholomew CM Entered in wrong chart.
--- NOTE | 2019-07-20 17:00 | NUR ---
Patient remains refusing to take shower
--- NOTE | 2019-07-20 19:15 | NUR ---
Report given to oncoming nurse of patient's status. Resting in bed. AAOX3 to time, person, place. Respirations even and unlabored. O2 1L NC.
[2019-07-20] MEDS: PRAVASTATIN 20 MG TAB PO SCH (21:03)
[2019-07-21] VITALS: BP 169/74
[2019-07-21] MEDS: ALBUTEROL SULF 0.083% NEB SOLN 3 ML NEB NEB SCH ×2 (02:55→06:38)
[2019-07-21] MEDS: IPRATROPIUM BROMIDE 0.02% 2.5 ML NEB NEB SCH ×2 (02:55→06:38)
[2019-07-21 04:00] VITALS: BP 144/66
--- NOTE | 2019-07-21 07:05 | NUR ---
Receive patient mid fowlers position, side rails upx2, calll light within reach. AAOX4 to time, person, place, situation. Respirations even and unlabored. On room air 93%. Will continue to monitor.
[2019-07-21 07:31] VITALS: BP 163/71
[2019-07-21] MEDS: METHYLPREDNISOLONE SOD SUCC 125 MG/2ML VIAL IV SCH (08:12)
[2019-07-21] MEDS: AZITHROMYCIN 500MG/NS 250 ML 250 ML IV SCH (08:12)
[2019-07-21] MEDS: BENAZEPRIL HCL 10 MG TAB PO SCH (08:12)
[2019-07-21] MEDS: MAGNESIUM OXIDE 400 MG TAB PO SCH (08:12)
[2019-07-21] MEDS: AMLODIPINE BESYLATE 5 MG TAB PO SCH (08:12)
[2019-07-21 08:14] VITALS: BP 163/71
--- NOTE | 2019-07-21 08:59 | NUR ---
Paged to notify of patient's discharge order
[2019-07-21] MEDS ORDERED: CEFDINIR300 MG PO (09:00)
[2019-07-21] MEDS ORDERED: PREDNISONE10 MG PO (09:01)
--- NOTE | 2019-07-21 09:05 | NUR ---
aware of discharge orders. States "She can go"
--- NOTE | 2019-07-21 10:36 | NUR ---
Right PICC line discontinued as ordered. 38 cm removed. Tolerated well. No s/s of acute distress noted. 2x2 gauze and tape placed. Taken via wheelchair by PCT to personal car. AAOX4 to time, person, place, situation. Respirations even and unlabored. SPO2 94% on room air. Discharge instructions, rx, and all personal belongings taken with patient.
--- NOTE | 2019-07-21 18:41 | Discharge Summary ---
DISCHARGE MEDICATIONS: 1. Prednisone taper. 2. Omnicef 300 mg p.o. b.i.d. for 10 days. 3. Amlodipine 5 mg p.o. daily. 4. Benazepril 20 mg p.o. daily. 5. Tramadol 50 mg p.o. t.i.d. p.r.n. 6. Warfarin 4 mg p.o. daily. RADIOGRAPHIC DATA: Chest x-ray shows enlarged cardiac silhouette. Echocardiogram shows mildly decreased ejection fraction at 45% to 50%. CONSULTING PHYSICIAN: Dr. Vinnie Andrade of Infectious Disease. HISTORY OF PRESENT ILLNESS: The patient is a 74-year-old woman. She has a history of severe COPD. She also has a history of 2 pulmonary emboli in the past. She uses bronchodilators and nebulizers at home. She has also received steroids as an outpatient. She came to the ER complaining of worsening dyspnea and cough. She had congestion and discolored phlegm. HOSPITAL COURSE: The patient was admitted. She received IV Solu-Medrol along with IV antibiotics. She received bronchodilators. She also received IV fluids. She had initial improvement, but then some slight worsening. She required additional IV Lasix and then improved. The patient was weaned off oxygen. She was seen in consultation by Infectious Disease. She felt better at the time of discharge. She was eager to go home. DISPOSITION: The patient will be discharged home and will follow up with Dr. Rodriguez in 1 week. Demarcus Rodriguez MD [facility]/MEDL /[id number]
== END 2019-07-21 10:36 | disposition home or self-care (01) | DRG 192 ==
LOC: ER 08:56 → ERHOLD 10:54 → MED/SURG2 11:32
PROVIDERS: ADMIT Internal Medicine Critical Care Medicine; ATTEND Internal Medicine Critical Care Medicine
PROC: 02HV33Z Insertion of Infusion Device into Superior Vena Cava, Percutaneous Approach (ICD-10-PCS; principal; 2019-07-19)
DX: J44.1 Chronic obstructive pulmonary disease with (acute) exacerbation (principal); I10 Essential (primary) hypertension; F17.200 Nicotine dependence, unspecified, uncomplicated; Z86.711 Personal history of pulmonary embolism; Z79.01 Long term (current) use of anticoagulants; R61 Generalized hyperhidrosis; R00.0 Tachycardia, unspecified; M19.90 Unspecified osteoarthritis, unspecified site; E83.42 Hypomagnesemia
CPT/HCPCS: 36415; 36569; 71045; 71046; 80053; 81001; 82550; 82553; 83605; 83735; 83880; 84134; 84484; 85025; 85610; 85730; 87040; 87086; 93005; 93306; 94640; 99284; J0456; J0696; J1650; J1940; J2270; J2930; J3475; J7030; J7050

== ENCOUNTER 2019-09-27 14:03 | Inpatient (IN) | payer MEDICARE ==
[~2019-09-27] VITALS: Ht 165.1 cm; Wt 105.2 kg
[2019-09-27] MEDS ORDERED: ALBUTEROL SULF 0.083% NEB SOLN 3 ML NEB NEB STA (14:27)
[2019-09-27] MEDS ORDERED: IPRATROPIUM BROMIDE 0.02% 2.5 ML NEB NEB ONE (14:30)
[2019-09-27] MEDS ORDERED: ASPIRIN 81 MG CHEW TAB PO NR (14:30)
[2019-09-27] MEDS ORDERED: NITROGLYCERIN 2% OINT 1 GM PKT TOP ONE (14:30)
--- NOTE | 2019-09-27 14:42 | NUR ---
RESPIRATORY NOTIFIED FOR BREATHING TX
[2019-09-27] MEDS ORDERED: METHYLPREDNISOLONE SOD SUCC 125 MG/2ML VIAL IV NR (14:45)
--- NOTE | 2019-09-27 14:53 | NUR ---
PATIENT RECEIVING BREATHING TX
[2019-09-27 15:23] LABS: BASOPHILS # (AUTO) 0.1 (0.0-0.1); BASOPHILS % 0.6 % (0.0-1.0); EOSINOPHILS # (AUTO) 0.3 (0.0-0.4); HEMATOCRIT 45.6 % (34.2-44.1); HEMOGLOBIN 14.5 g/dL (12.0-16.0); LYMPHOCYTES # (AUTO) 3.6 (1.0-3.2); LYMPHOCYTES % 34.6 % (18.0-39.1); MEAN CORPUSCULAR HGB CONC 31.8 g/dL (31-35); MEAN CORPUSCULAR VOLUME 100.7 fL (81-99); MONOCYTES # (AUTO) 0.9 (0.2-0.8); MONOCYTES % 8.5 % (4.4-11.3); NEUTROPHILS # (AUTO) 5.5 (2.1-6.9); NEUTROPHILS % 53.1 % (38.7-80.0); PLATELET COUNT 300 x10e3/uL (140-360); RED BLOOD COUNT 4.53 x10e6/uL (3.6-5.1); RED CELL DISTRIBUTION WIDTH 14.8 % (11.7-14.4)
--- NOTE | 2019-09-27 15:30 | Diagnostic Imaging Report ---
EXAMINATION: CHEST SINGLE (PORTABLE) INDICATION: ^sob COMPARISON: 07/19/2019 FINDINGS: AP view TUBES and LINES: Right PICC has been removed. LUNGS: Lungs are well inflated. Worsening bilateral edema. Bibasilar atelectasis. PLEURA: No pleural effusion or pneumothorax. HEART AND MEDIASTINUM: The cardiomediastinal silhouette is unremarkable.. BONES AND SOFT TISSUES: No acute osseous lesion. Soft tissues are unremarkable. UPPER ABDOMEN: No free air under the diaphragm. IMPRESSION: Worsening bilateral interstitial edema. Signed by: Dr. Gema Jean M.D. on 09/27/2019 3:27 PM
[2019-09-27 15:33] LABS: INR 1.71; PARTIAL THROMBOPLASTIN TIME 34.9 seconds (23.8-35.5); PROTHROMBIN TIME 20.7 seconds (11.9-14.5)
[2019-09-27 15:56] LABS: BILIRUBIN,URINE NEGATIVE (NEGATIVE); CLARITY,URINE SL CLOUDY (CLEAR); COLOR,URINE YELLOW (YELLOW); KETONES,URINE NEGATIVE (NEGATIVE); LEUKOCYTE ESTERASE ,URINE NEGATIVE (NEGATIVE); NITRITE,URINE NEGATIVE (NEGATIVE); PROTEIN,URINE DIPSTICK TRACE (NEGATIVE); URINE UROBILINOGEN 0.2 mg/dL (0.2 - 1)
[2019-09-27 16:10] LABS: AMORPHOUS SEDIMENT,URINE MODERATE (FEW); BACTERIA,URINE MODERATE /HPF; EPITHELIAL CELLS,URINE FEW /LPF; MUCUS,URINE FEW (RARE); RBC,URINE 0-5 /HPF (0-5); WBC,URINE (MAN) 0-5 /HPF (0-5)
[2019-09-27] MEDS ORDERED: ACETAMINOPHEN 325 MG TAB PO NR (16:15)
[2019-09-27] MEDS ORDERED: ACETAMINOPHEN 325 MG TAB ONE (16:21)
[2019-09-27 16:23] LABS: ALANINE AMINOTRANSFERASE 21 IU/L (0-55); ALBUMIN 3.7 g/dL (3.5-5.0); ALBUMIN/GLOBULIN RATIO 1.1 (0.8-2.0); ALKALINE PHOSPHATASE 98 IU/L (40-150); ANION GAP 14.8 mmol/L (8-16); BLOOD UREA NITROGEN 13 mg/dL (7-26); BUN/CREATININE RATIO 18 (6-25); CALCIUM 9.7 mg/dL (8.4-10.2); CARBON DIOXIDE 31 mmol/L (22-29); CHLORIDE 99 mmol/L (98-107); CREATINE KINASE 116 IU/L (29-168); CREATININE, SERUM 0.72 mg/dL (0.57-1.11); EST GLOMERULAR FILTRATION RATE > 60 ML/MIN (60-); GLUCOSE 78 mg/dL (74-118); POTASSIUM 3.8 mmol/L (3.5-5.1); SODIUM 141 mmol/L (136-145)
[2019-09-27] MEDS ORDERED: MORPHINE SULFATE 2 MG/ML SYR 1ML IV PRN (17:00)
[2019-09-27] MEDS ORDERED: ONDANSETRON HCL INJ 2MG/ML 2ML 2 MG/ML VIAL IV PRN (17:00)
[2019-09-27] MEDS ORDERED: FUROSEMIDE INJ 10 MG/ML 4 ML VIAL IV NR (17:00)
[2019-09-27] MEDS: CEFTRIAXONE SOD 1 GM/NS 50 ML 50 ML IV SCH (17:22)
[2019-09-27] MEDS: FAMOTIDINE 20 MG/2 ML VIAL IV SCH (17:22)
--- NOTE | 2019-09-27 17:23 | NUR ---
RECEIVED REPORT FROM CAHSE IN ER. AWAITING FOR PT TO ARRIVE TO FLOOR
[2019-09-27 18:00] VITALS: BP 188/79
[2019-09-27] MEDS ORDERED: NITROGLYCERIN 2% OINT 1 GM PKT TOP SCH ×2 (18:00→20:00)
[2019-09-27 18:07] VITALS: BP 188/79
[2019-09-27] MEDS ORDERED: SODIUM CHLORIDE 0.9% 250ML 250 ML ONE (18:14)
[2019-09-27] MEDS: AZITHROMYCIN 500MG/NS 250 ML 250 ML IV SCH (18:15)
[2019-09-27] MEDS ORDERED: INFLUENZA VIRUS VAC SPLIT INJ 0.5 ML SYR IM NR (18:18)
[2019-09-27 19:13] LABS: CREATINE KINASE MB 3.3 ng/mL (0-5.0)
[2019-09-27] MEDS ORDERED: TRAMADOL HCL 50 MG TAB PO PRN (19:30)
[2019-09-27] MEDS ORDERED: ZOLPIDEM TARTRATE 5 MG TAB PO PRN (19:30)
[2019-09-27] MEDS ORDERED: BENAZEPRIL HCL 10 MG TAB PO NR (19:30)
[2019-09-27] MEDS ORDERED: CLONIDINE HCL 0.2 MG TAB PO PRN (19:30)
[2019-09-27] MEDS: ALBUTEROL/IPRATROPIUM 3 ML NEB NEB SCH ×2 (19:50→23:00)
[2019-09-27 20:00] VITALS: BP 136/65
[2019-09-27 20:40] VITALS: BP 136/65
[2019-09-27] MEDS: PRAVASTATIN 20 MG TAB PO SCH (20:40)
[2019-09-27] MEDS: METHYLPREDNISOLONE SOD SUCC 125 MG/2ML VIAL IV SCH ×2 (20:40→21:00)
--- NOTE | 2019-09-27 20:40 | NUR ---
PATIENT RESTING IN BED BOTH EYES CLOSED, NO SIGNS OF RESPIRATORY DISTRESS AT THIS TIME. NASAL CANNULA IS INTACT AND FLOWING AT 2 LITERS, PATIENT VOICES NO PAIN. IV ANTIBIOTICS ARE RUNNING AT ORDERED RATE AND BLOOD PRESSURE IS DOWN FROM PREVIOUS ROUND. BED IS IN LOWEST POSITION, BOTH SIDE RAILS ARE UP, CALL LIGHT WITHIN EASY REACH, WILL CONTINUE TO MONITOR.
[2019-09-27] MEDS ORDERED: FUROSEMIDE INJ 10 MG/ML 4 ML VIAL IV SCH (21:00)
[2019-09-28] VITALS (8 sets, daily range): BP systolic 130–161; BP diastolic 60–73
[2019-09-28] MEDS: ALBUTEROL/IPRATROPIUM 3 ML NEB NEB SCH ×6 (03:00→23:00)
[2019-09-28] MEDS: METHYLPREDNISOLONE SOD SUCC 125 MG/2ML VIAL IV SCH (05:20)
[2019-09-28] MEDS: FAMOTIDINE 20 MG/2 ML VIAL IV SCH ×2 (05:20→16:25)
[2019-09-28 05:52] LABS: HEMATOCRIT 40.9 % (34.2-44.1); HEMOGLOBIN 13.4 g/dL (12.0-16.0); LYMPHOCYTES # (AUTO) 1.4 (1.0-3.2); LYMPHOCYTES % 24.1 % (18.0-39.1); MEAN CORPUSCULAR HEMOGLOBIN 31.8 pg (28-32); MEAN CORPUSCULAR HGB CONC 32.8 g/dL (31-35); MEAN CORPUSCULAR VOLUME 96.9 fL (81-99); MONOCYTES # (AUTO) 0.1 (0.2-0.8); MONOCYTES % 1.7 % (4.4-11.3); NEUTROPHILS # (AUTO) 4.4 (2.1-6.9); NEUTROPHILS % 73.9 % (38.7-80.0); PLATELET COUNT 291 x10e3/uL (140-360); RED BLOOD COUNT 4.22 x10e6/uL (3.6-5.1); RED CELL DISTRIBUTION WIDTH 14.4 % (11.7-14.4)
[2019-09-28 06:16] LABS: CREATINE KINASE 91 IU/L (29-168)
[2019-09-28 06:50] LABS: ALANINE AMINOTRANSFERASE 19 IU/L (0-55); ALBUMIN 3.2 g/dL (3.5-5.0); ALKALINE PHOSPHATASE 84 IU/L (40-150); BLOOD UREA NITROGEN 15 mg/dL (7-26); BUN/CREATININE RATIO 21 (6-25); CARBON DIOXIDE 30 mmol/L (22-29); CHLORIDE 101 mmol/L (98-107); CHOLESTEROL 183 MD/DL (0-199); CREATININE, SERUM 0.73 mg/dL (0.57-1.11); EST GLOMERULAR FILTRATION RATE > 60 ML/MIN (60-); GLUCOSE 142 mg/dL (74-118); HDL CHOLESTEROL 93 MG/DL (40-60); LDL CHOLESTEROL 78 MG/DL (60-130); SODIUM 140 mmol/L (136-145); TRIGLYCERIDES 61 MG/DL (0-149)
--- NOTE | 2019-09-28 07:09 | NUR ---
walking rounds completed with scene shifter RN, received shift change report, pt receiving breathing treatment, no signs of acute distress. RT at bedside.
[2019-09-28 08:27] LABS: LYMPHOCYTES % (MANUAL) 22 % (19-48); MONOCYTES % (MANUAL) 2 % (3.4-9.0); NEUTROPHILS % (MANUAL) 72 % (40-74)
[2019-09-28 08:29] LABS: POIKILOCYTOSIS SLIGHT
[2019-09-28 08:30] LABS: HOWELL-JOLLY BODIES FEW
[2019-09-28 08:31] LABS: PLATELET ESTIMATE ADEQUATE; PLATELET MORPHOLOGY COMMENT FEW LARGE; TARGET CELLS FEW
--- NOTE | 2019-09-28 08:33 | History and Physical ---
CHIEF COMPLAINT: Worsening dyspnea. HISTORY OF PRESENT ILLNESS: The patient is a 74-year-old woman. She has a history of severe COPD. She uses oxygen at home. She also has nebulizers and bronchodilators at home. She has a history of 2 prior pulmonary emboli and is on warfarin. She also had a heart evaluated by Dr. Diez and by Dr. Lim previously. According to the patient, Dr. Diez said that "she has the strongest heart he has ever seen." The patient now complains of worsening dyspnea. The patient does not complain of phlegm or fever. She has some mild cough. She is not having chest pain. She has no fever. PAST SURGICAL HISTORY: 1. Status post back surgery x2. 2. Status post knee surgery. PAST MEDICAL HISTORY: 1. History of pulmonary emboli x2. 2. History of COPD. 3. Hypertension. 4. Degenerative arthritis. ALLERGIES: NO KNOWN DRUG ALLERGIES. SOCIAL HISTORY: The patient quit smoking. The patient is not an active drinker. FAMILY HISTORY: Noncontributory. REVIEW OF SYSTEMS: The patient has no headache. She has no fevers. She is not having any neck pain. She has no sore throat. She does not complain of chest pain. She does have dyspnea and some cough. She has some congestion. She has no abdominal pain. She has no nausea or vomiting. She has 2 to 3+ leg edema and [facility]. PHYSICAL EXAMINATION: VITAL SIGNS: The patient is afebrile, blood pressure is 153/60, and saturation is 97% on 2 L. HEENT: Shows no facial swelling or erythema. CARDIAC: Reveals regular rate and rhythm with normal S1 and S2. LUNGS: Auscultation of lungs reveals a prolonged expiratory phase with some wheezing bilaterally. ABDOMEN: Soft, nontender. There is no rebound or guarding. EXTREMITIES: Show 2+ leg edema. NEUROLOGICAL: Shows no focal abnormalities. LABORATORY DATA: White blood cell count is 5.9, hemoglobin is 13.4, and the platelet count is 291. BUN to creatinine ratio is 15 to 0.73. The other electrolytes are within normal limits. Albumin is 3.2. INR is 1.7. Chest x-ray shows worsening bilateral interstitial edema. IMPRESSION: 1. [id number] respiratory failure with chronic obstructive pulmonary disease. 2. History of recurrent pulmonary emboli. 3. Hypertension. PLAN: 1. Continue IV Solu-Medrol. 2. Continue oxygen. 3. Continue bronchodilators. 4. Continue warfarin. 5. Out of bed as tolerated. 6. Low-dose diuretics. MD CALEB Bazzi/ZACHARIAH /[id number]
[2019-09-28 08:34] LABS: RBC MORPHOLOGY COMMENT ABNORMAL
[2019-09-28 08:35] LABS: ANISOCYTOSIS MODERATE
[2019-09-28] MEDS ORDERED: ASPIRIN 81 MG ENTERIC COATED PO SCH (09:00)
[2019-09-28] MEDS ORDERED: BENAZEPRIL HCL 10 MG TAB PO SCH (09:00)
[2019-09-28] MEDS: TIOTROPIUM 18 MCG INH POWDER INH SCH (09:10)
[2019-09-28] MEDS: BUDESONIDE/FORMOTEROL 160/4.5MCG INHALER INH SCH ×2 (09:10→20:00)
[2019-09-28] MEDS: AZITHROMYCIN 500MG/NS 250 ML 250 ML IV SCH (09:56)
[2019-09-28] MEDS: METHYLPREDNISOLONE SOD SUCC 40 MG/ML VIAL 1ML IV SCH ×2 (10:00→20:00)
[2019-09-28] MEDS: BENAZEPRIL HCL 10 MG TAB PO SCH ×2 (10:01→16:23)
[2019-09-28] MEDS: MELOXICAM 7.5 MG TAB PO SCH (10:01)
[2019-09-28] MEDS: HYDROCODONE/APAP 5MG-325MG TAB PO PRN ×2 (10:50→20:01)
[2019-09-28 14:18] LABS: CREATINE KINASE MB 1.9 ng/mL (0-5.0)
[2019-09-28] MEDS: WARFARIN SOD 2 MG TAB PO SCH (16:23)
[2019-09-28] MEDS: CEFTRIAXONE SOD 1 GM/NS 50 ML 50 ML IV SCH (16:24)
[2019-09-28] MEDS: PRAVASTATIN 20 MG TAB PO SCH (20:00)
--- NOTE | 2019-09-28 21:20 | NUR ---
pt received. pt assessed. no ss of distress noted. tele in place. will cont to follow poc. call juarez within reach.
[2019-09-29] VITALS (7 sets, daily range): BP systolic 136–172; BP diastolic 61–93
[2019-09-29] MEDS: ALBUTEROL/IPRATROPIUM 3 ML NEB NEB SCH ×6 (03:00→23:00)
[2019-09-29 05:18] LABS: BASOPHILS % 0.1 % (0.0-1.0); HEMATOCRIT 40.3 % (34.2-44.1); HEMOGLOBIN 13.2 g/dL (12.0-16.0); LYMPHOCYTES # (AUTO) 1.5 (1.0-3.2); LYMPHOCYTES % 9.7 % (18.0-39.1); MEAN CORPUSCULAR HEMOGLOBIN 31.8 pg (28-32); MEAN CORPUSCULAR HGB CONC 32.8 g/dL (31-35); MEAN CORPUSCULAR VOLUME 97.1 fL (81-99); MONOCYTES # (AUTO) 0.6 (0.2-0.8); MONOCYTES % 3.8 % (4.4-11.3); NEUTROPHILS # (AUTO) 13.4 (2.1-6.9); NEUTROPHILS % 85.8 % (38.7-80.0); PLATELET COUNT 292 x10e3/uL (140-360); RED BLOOD COUNT 4.15 x10e6/uL (3.6-5.1); RED CELL DISTRIBUTION WIDTH 14.3 % (11.7-14.4)
[2019-09-29] MEDS: FAMOTIDINE 20 MG/2 ML VIAL IV SCH (05:25)
[2019-09-29 05:26] LABS: INR 1.94; PROTHROMBIN TIME 22.8 seconds (11.9-14.5)
--- NOTE | 2019-09-29 05:27 | NUR ---
pt resting. no ss of distress noted. call juarez within reach.
[2019-09-29 05:38] LABS: ALANINE AMINOTRANSFERASE 20 IU/L (0-55); ALBUMIN 3.5 g/dL (3.5-5.0); ALBUMIN/GLOBULIN RATIO 1.3 (0.8-2.0); ALKALINE PHOSPHATASE 79 IU/L (40-150); ANION GAP 12.9 mmol/L (8-16); BLOOD UREA NITROGEN 22 mg/dL (7-26); BUN/CREATININE RATIO 28 (6-25); CALCIUM 9.1 mg/dL (8.4-10.2); CARBON DIOXIDE 31 mmol/L (22-29); CHLORIDE 104 mmol/L (98-107); CREATININE, SERUM 0.79 mg/dL (0.57-1.11); EST GLOMERULAR FILTRATION RATE > 60 ML/MIN (60-); GLUCOSE 167 mg/dL (74-118); POTASSIUM 3.9 mmol/L (3.5-5.1); SODIUM 144 mmol/L (136-145)
[2019-09-29] MEDS: BUDESONIDE/FORMOTEROL 160/4.5MCG INHALER INH SCH ×2 (08:53→19:20)
[2019-09-29] MEDS: TIOTROPIUM 18 MCG INH POWDER INH SCH (08:53)
[2019-09-29] MEDS: MELOXICAM 7.5 MG TAB PO SCH (09:51)
[2019-09-29] MEDS: BENAZEPRIL HCL 10 MG TAB PO SCH ×2 (09:51→17:23)
[2019-09-29] MEDS: METOPROLOL TARTRATE 25 MG TAB PO SCH ×2 (09:51→17:23)
[2019-09-29] MEDS: METHYLPREDNISOLONE SOD SUCC 40 MG/ML VIAL 1ML IV SCH ×2 (09:51→20:47)
[2019-09-29] MEDS: AZITHROMYCIN 500MG/NS 250 ML 250 ML IV SCH (09:51)
--- NOTE | 2019-09-29 10:21 | Progress Note ---
DATE: SUBJECTIVE: The patient's dyspnea is slightly improved. She reports some headache. PHYSICAL EXAMINATION: VITAL SIGNS: The patient is afebrile. The blood pressure is 144/61 and the saturation is 100%. The pulse is 93. HEENT: Shows no facial swelling or erythema. The oropharynx is normal. LYMPHATIC: Shows no submandibular, cervical, or supraclavicular adenopathy. CARDIAC: Reveals regular rate and rhythm with a normal S1 and S2. There are no murmurs or rubs. RESPIRATORY: Auscultation of the lungs reveal clear breath sounds bilaterally. There is some mild wheezing. There is a prolonged expiratory phase. ABDOMEN: Soft and nontender. There is no rebound or guarding. EXTREMITIES: Show no leg edema or calf tenderness. IMPRESSION: 1. Acute on chronic respiratory failure with chronic obstructive pulmonary disease. 2. Hypertension. 3. Headaches. 4. History of recurrent pulmonary emboli. PLAN: 1. Taper Solu-Medrol. 2. Continue oxygen. 3. Continue albuterol and Atrovent via nebulizer. 4. Continue warfarin. 5. Out of bed as tolerated. 6. Increase benazepril to 20 mg p.o. b.i.d. and begin metoprolol 25 mg p.o. twice daily. Demarcus Rodriguez MD [facility]/MEDL /[id number]
[2019-09-29] MEDS: CEFTRIAXONE SOD 1 GM/NS 50 ML 50 ML IV SCH (17:22)
[2019-09-29] MEDS: WARFARIN SOD 2 MG TAB PO SCH (17:23)
--- NOTE | 2019-09-29 19:00 | NUR ---
RECEIVED PATIENT IN BEDSIDE REPORT. PATIENT RESTING IN BED AT THIS TIME, A&OX3, NO PAIN REPORTED. NO S&S OF DISTRESS NOTED. BED LOCKED IN LOWEST POSITION, SIDE RAILS UPX2, CALL LIGHT IN REACH.
[2019-09-29] MEDS: PRAVASTATIN 20 MG TAB PO SCH (20:47)
[2019-09-29] MEDS: FAMOTIDINE 20 MG TAB PO SCH (20:47)
[2019-09-30] VITALS: BP 166/77
[2019-09-30] MEDS: ALBUTEROL/IPRATROPIUM 3 ML NEB NEB SCH ×4 (03:00→14:38)
[2019-09-30 04:00] VITALS: BP 196/84
[2019-09-30 05:59] LABS: ALANINE AMINOTRANSFERASE 20 IU/L (0-55); ALBUMIN 3.4 g/dL (3.5-5.0); ALBUMIN/GLOBULIN RATIO 1.2 (0.8-2.0); ALKALINE PHOSPHATASE 73 IU/L (40-150); ANION GAP 13.2 mmol/L (8-16); BLOOD UREA NITROGEN 21 mg/dL (7-26); BUN/CREATININE RATIO 26 (6-25); CARBON DIOXIDE 29 mmol/L (22-29); CHLORIDE 105 mmol/L (98-107); EST GLOMERULAR FILTRATION RATE > 60 ML/MIN (60-); GLUCOSE 141 mg/dL (74-118); POTASSIUM 4.2 mmol/L (3.5-5.1); SODIUM 143 mmol/L (136-145)
[2019-09-30 06:17] LABS: INR 1.97; PROTHROMBIN TIME 23.1 seconds (11.9-14.5)
--- NOTE | 2019-09-30 07:42 | NUR ---
Rcvd patient in report this am. Patient is asleep in bed at this time. NO s/s of distress noted
[2019-09-30] MEDS: BUDESONIDE/FORMOTEROL 160/4.5MCG INHALER INH SCH (07:52)
[2019-09-30] MEDS: TIOTROPIUM 18 MCG INH POWDER INH SCH (07:52)
[2019-09-30 08:04] VITALS: BP 184/96
[2019-09-30] MEDS: METHYLPREDNISOLONE SOD SUCC 40 MG/ML VIAL 1ML IV SCH (08:45)
[2019-09-30] MEDS: MELOXICAM 7.5 MG TAB PO SCH (08:46)
[2019-09-30] MEDS: FAMOTIDINE 20 MG TAB PO SCH (08:46)
[2019-09-30] MEDS: BENAZEPRIL HCL 10 MG TAB PO SCH (08:46)
[2019-09-30] MEDS: METOPROLOL TARTRATE 25 MG TAB PO SCH (08:46)
[2019-09-30 08:47] VITALS: BP 184/96
[2019-09-30] MEDS ORDERED: AZITHROMYCIN 250 MG TAB PO SCH (09:00)
[2019-09-30 11:55] VITALS: BP 180/83
[2019-09-30 13:30] VITALS: BP 153/80
[2019-09-30] MEDS ORDERED: BENAZEPRIL HCL10 MG PO (14:35)
[2019-09-30] MEDS ORDERED: IPRATROPIU0.2 MG/1 M NEB (14:35)
[2019-09-30] MEDS ORDERED: AZITHROMYCIN250 MG PO (14:35)
--- NOTE | 2019-09-30 14:45 | NUR ---
IV removed at this time. Pressure dressing applied to left AC.
--- NOTE | 2019-09-30 15:23 | NUR ---
Patient discharged from facility to home. Patient assisted out via staff. Reviewed all discharge paperwork, follow up appts and RX's given. Reviewed all medications with patient.
--- NOTE | 2019-10-01 12:17 | Discharge Summary ---
ADMITTING DIAGNOSES: 1. Acute on chronic respiratory failure. 2. Chronic obstructive pulmonary disease with acute exacerbation. 3. History of recurrent pulmonary embolism. 4. Hypertension. DISCHARGE DIAGNOSES: 1. Acute on chronic respiratory failure. 2. Chronic obstructive pulmonary disease with acute exacerbation. 3. History of recurrent pulmonary embolism. 4. Hypertension. BRIEF HISTORY AND HOSPITAL COURSE: Ms. Spann is a 74-year-old woman with a past history of smoking, COPD with chronic respiratory failure, on home oxygen therapy and two prior pulmonary embolism, on chronic anticoagulation with warfarin. She presented to the hospital with increasing shortness of breath and some cough. She was found to be more hypoxemic, having some wheezing and increased leg edema. Her blood pressure was also high. Chest x-ray, bilateral interstitial edema as well. She was treated with steroids, nebulized bronchodilators, and oxygen therapy. She also got low-dose diuretics. Her antihypertensives were augmented. Her benazepril was doubled. She was started on metoprolol. She is feeling better on day of discharge. At time of visit, her blood pressure was 150/80. She will continue her home medications except for the notable new prescriptions for prednisone taper, Atrovent nebulizer, Z-Russell, benazepril 20 mg one p.o. b.i.d., and metoprolol 25 mg one p.o. b.i.d. DIET: As tolerated. ACTIVITY: As tolerated. FOLLOWUP: Dr. Rodriguez next week. MD RAAD Lr/ZACHARIAH /[id number]
== END 2019-09-30 15:23 | disposition home or self-care (01) | DRG 189 ==
LOC: ER 14:03 → ERHOLD 17:21 → MED/SURG 17:58
PROVIDERS: ADMIT Internal Medicine Critical Care Medicine; ATTEND Internal Medicine Critical Care Medicine
DX: J96.21 Acute and chronic respiratory failure with hypoxia (principal); J44.1 Chronic obstructive pulmonary disease with (acute) exacerbation; Z99.81 Dependence on supplemental oxygen; Z86.711 Personal history of pulmonary embolism; Z79.01 Long term (current) use of anticoagulants; I10 Essential (primary) hypertension; G47.33 Obstructive sleep apnea (adult) (pediatric); M19.90 Unspecified osteoarthritis, unspecified site
CPT/HCPCS: 36415; 71045; 80053; 80061; 81001; 82550; 82553; 83605; 83735; 83880; 84484; 85025; 85610; 85730; 87040; 87086; 93005; 94640; 94664; 96376; 99285; J0456; J0696; J1940; J2920; J2930; J7050

== ENCOUNTER 2019-10-29 21:59 | Inpatient (IN) | payer MEDICARE ==
[~2019-10-29] VITALS: Ht 167.6 cm; Wt 107.7 kg
[~2019-10-29 21:59] MED LIST changes: +IPRATROPIU0.2 MG/1 M NEB
[2019-10-29 23:05] LABS: BASOPHILS # (AUTO) 0.1 (0.0-0.1); BASOPHILS % 0.4 % (0.0-1.0); EOSINOPHILS # (AUTO) 0.2 (0.0-0.4); EOSINOPHILS % 1.3 % (0.0-6.0); HEMATOCRIT 42.5 % (34.2-44.1); HEMOGLOBIN 13.2 g/dL (12.0-16.0); LYMPHOCYTES # (AUTO) 5.2 (1.0-3.2); LYMPHOCYTES % 39.7 % (18.0-39.1); MEAN CORPUSCULAR HEMOGLOBIN 31.4 pg (28-32); MEAN CORPUSCULAR HGB CONC 31.1 g/dL (31-35); MEAN CORPUSCULAR VOLUME 101.2 fL (81-99); MONOCYTES # (AUTO) 1.5 (0.2-0.8); NEUTROPHILS # (AUTO) 6.2 (2.1-6.9); NEUTROPHILS % 47.2 % (38.7-80.0); PLATELET COUNT 257 x10e3/uL (140-360); RED CELL DISTRIBUTION WIDTH 14.9 % (11.7-14.4)
[2019-10-29 23:30] LABS: ALANINE AMINOTRANSFERASE 25 IU/L (0-55); ALBUMIN 3.4 g/dL (3.5-5.0); ALBUMIN/GLOBULIN RATIO 1.1 (0.8-2.0); ALKALINE PHOSPHATASE 91 IU/L (40-150); ANION GAP 14.2 mmol/L (8-16); BLOOD UREA NITROGEN 23 mg/dL (7-26); BUN/CREATININE RATIO 24 (6-25); CALCIUM 9.5 mg/dL (8.4-10.2); CARBON DIOXIDE 30 mmol/L (22-29); CHLORIDE 102 mmol/L (98-107); CREATINE KINASE 88 IU/L (29-168); CREATININE, SERUM 0.97 mg/dL (0.57-1.11); EST GLOMERULAR FILTRATION RATE 56 ML/MIN (60-); GLUCOSE 119 mg/dL (74-118); POTASSIUM 3.2 mmol/L (3.5-5.1); SODIUM 143 mmol/L (136-145)
[2019-10-29] MEDS ORDERED: ALBUTEROL/IPRATROPIUM 3 ML NEB NEB ONE (23:30)
--- NOTE | 2019-10-29 23:49 | Diagnostic Imaging Report ---
EXAMINATION: CHEST 2 VIEWS INDICATION: ^sob ^[id number] ^[id number] COMPARISON: 09/27/2019 FINDINGS: PA and lateral views TUBES and LINES: None. LUNGS: Limited by body habitus. Lungs are well inflated. Pulmonary vascular congestion and mild interstitial edema. Central peribronchial cuffing. PLEURA: No significant pleural effusion or pneumothorax. HEART AND MEDIASTINUM: The cardiomediastinal silhouette is unremarkable. BONES AND SOFT TISSUES: No acute osseous lesion. Soft tissues are unremarkable. UPPER ABDOMEN: No free air under the diaphragm. IMPRESSION: Pulmonary vascular congestion and mild interstitial edema. Underlying pneumonia in the perihilar regions cannot be excluded in the appropriate clinical context. Signed by: Dr. Niko Simpson MD on 10/29/2019 11:45 PM
[2019-10-30] MEDS ORDERED: METHYLPREDNISOLONE SOD SUCC 125 MG/2ML VIAL IV ONE
[2019-10-30] MEDS: DOXYCYCLINE 100MG/NS 100ML 100 ML IV SCH ×2 (01:12→16:04)
[2019-10-30] MEDS: ALBUTEROL/IPRATROPIUM 3 ML NEB NEB SCH ×7 (03:35→23:00)
[2019-10-30] MEDS ORDERED: HYDRALAZINE HCL 20 MG/ML VIAL IV STA (04:12)
--- NOTE | 2019-10-30 05:40 | NUR ---
0400 Neb TX was not admin by RT, given by RN at this time as TX is Q4H and Pt was in need of TX.
[2019-10-30] MEDS ORDERED: METHYLPREDNISOLONE SOD SUCC 40 MG/ML VIAL 1ML IV SCH (06:00)
--- NOTE | 2019-10-30 06:48 | NUR ---
received report from off going nurse. patient in room in bed, resting quietly with eyes closed. pending room assignemnt for admission.
[2019-10-30 07:12] LABS: CREATINE KINASE 95 IU/L (29-168)
[2019-10-30 11:31] VITALS: BP 183/88
[2019-10-30 12:00] VITALS: BP 185/84
--- NOTE | 2019-10-30 12:11 | NUR ---
spoke with Dr Rodriguez regarding pt's elevated blood pressure; he states give pt one time dose of 0.2mg Clonidine PO and he will come to see pt today.
[2019-10-30] MEDS ORDERED: TRAMADOL HCL 50 MG TAB PO PRN (12:30)
[2019-10-30] MEDS ORDERED: IPRATROPIUM BROMIDE 0.02% 2.5 ML NEB NEB PRN (12:30)
[2019-10-30] MEDS ORDERED: CLONIDINE HCL 0.2 MG TAB PO ONE (12:45)
[2019-10-30] MEDS ORDERED: HYDROCODONE/APAP 7.5MG-325MG 1 EA TAB PO PRN (12:45)
[2019-10-30] MEDS ORDERED: ACETAZOLAMIDE SODIUM 500 MG/VIAL IV ONE (13:00)
--- NOTE | 2019-10-30 13:12 | Pre Op History & Physical ---
CHIEF COMPLAINT: Dyspnea and congestion. HISTORY OF PRESENT ILLNESS: The patient is a 74-year-old woman. She has a history of prior pulmonary emboli. She also has a history of severe COPD. She uses oxygen at home. She has been receiving steroids and nebulizer treatments through the office. She now complains of worsening dyspnea and congestion. She becomes short of breath just walking to the bathroom and back. PAST SURGICAL HISTORY: 1. Status post back surgery x2. 2. Status post knee surgery. PAST MEDICAL HISTORY: 1. History of pulmonary emboli x2. 2. History of COPD. 3. Degenerative arthritis. ALLERGIES: NO KNOWN DRUG ALLERGIES. SOCIAL HISTORY: The patient quit smoking. The patient is not an active drinker. FAMILY HISTORY: The patient is noncontributory. REVIEW OF SYSTEMS: The patient is afebrile. There is no headache. Oropharynx normal. The patient does not complain of sore throat. She is not complaining of chest pain. She does have congestion and cough. She has some phlegm production. She is not having any abdominal pain. There is no nausea or vomiting. She does have chronic leg edema. PHYSICAL EXAMINATION: VITAL SIGNS: The blood pressure is 146/85 and the pulse is 82. Saturation is 99% on 2 L. HEENT: Shows no facial swelling or erythema. LYMPHATIC: Shows no submandibular, cervical or supraclavicular adenopathy. CARDIAC: Reveals regular rate and rhythm with normal S1 and S2. There are no murmurs or rubs heard. LUNGS: Auscultation of lungs reveals rhonchorous breath sounds bilaterally. There is no wheezing. ABDOMEN: Soft, nontender. There is no rebound or guarding. EXTREMITIES: Show 2+ leg edema. RADIOGRAPHIC DATA: Chest x-ray shows possible mild pulmonary edema. LABORATORY DATA: White blood cell count is 13.1 and hemoglobin is 13.2. The platelet count is 257. The BUN to creatinine ratio is normal. The potassium is 3.2. The troponin I's are normal. The BNP is 126. IMPRESSION: 1. Chronic obstructive pulmonary disease with acute exacerbation. 2. Hypertension. 3. History of prior pulmonary emboli. PLAN: 1. The patient will continue Solu-Medrol along with antibiotics and bronchodilators. 2. Continue warfarin and repeat INR. 3. Begin some low-dose diuretics. 4. Adjust antihypertensive regimen. MD CALEB Bazzi/ZACHARIAH /[id number]
[2019-10-30] MEDS ORDERED: POTASSIUM CHLORIDE 20 MEQ TAB CR PO NR (13:30)
[2019-10-30] MEDS: METHYLPREDNISOLONE SOD SUCC 40 MG/ML VIAL 1ML IV SCH ×2 (14:21→21:24)
[2019-10-30 14:58] LABS: CREATINE KINASE 117 IU/L (29-168)
[2019-10-30 16:00] VITALS: BP 195/84
[2019-10-30] MEDS: WARFARIN SOD 2 MG TAB PO SCH (16:03)
[2019-10-30] MEDS ORDERED: SODIUM CHLORIDE 0.9% 250ML 250 ML ONE (16:05)
--- NOTE | 2019-10-30 19:20 | NUR ---
Received bedside report from day nurse. Patient sitting in recliner chair, no s/s of distress or c/o pain at this time. All safety measures in place. Will continue to monitor.
[2019-10-30 20:00] VITALS: BP 166/72
[2019-10-30] MEDS ORDERED: ZOLPIDEM TARTRATE 5 MG TAB PO PRN (21:00)
[2019-10-30 21:09] VITALS: BP 166/72
[2019-10-31] VITALS (11 sets, daily range): BP systolic 138–191; BP diastolic 67–83
[2019-10-31] MEDS: DOXYCYCLINE 100MG/NS 100ML 100 ML IV SCH ×2 (00:21→13:09)
[2019-10-31] MEDS: ALBUTEROL/IPRATROPIUM 3 ML NEB NEB SCH ×5 (03:00→23:05)
--- NOTE | 2019-10-31 04:37 | NUR ---
Patient reported earlier difficulty urinating despite urge. Just now able to urinate via toilet. Urine light jigna in color with small blood clots. Will plan to notify doctor in AM. PT labs scheduled for 0500. Patient in stable condition, no s/s of distress or bleeding noted at this time. All safety measures in place. Will continue to monitor.
[2019-10-31] MEDS: METHYLPREDNISOLONE SOD SUCC 40 MG/ML VIAL 1ML IV SCH ×3 (05:09→20:13)
[2019-10-31 06:42] LABS: BASOPHILS % 0.1 % (0.0-1.0); HEMATOCRIT 40.5 % (34.2-44.1); HEMOGLOBIN 13.1 g/dL (12.0-16.0); LYMPHOCYTES # (AUTO) 1.8 (1.0-3.2); LYMPHOCYTES % 13.7 % (18.0-39.1); MEAN CORPUSCULAR HEMOGLOBIN 32.3 pg (28-32); MEAN CORPUSCULAR HGB CONC 32.3 g/dL (31-35); MONOCYTES # (AUTO) 0.7 (0.2-0.8); MONOCYTES % 5.6 % (4.4-11.3); NEUTROPHILS # (AUTO) 10.4 (2.1-6.9); NEUTROPHILS % 80.1 % (38.7-80.0); PLATELET COUNT 275 x10e3/uL (140-360); RED BLOOD COUNT 4.05 x10e6/uL (3.6-5.1); RED CELL DISTRIBUTION WIDTH 15.3 % (11.7-14.4)
[2019-10-31 06:52] LABS: INR 0.96; PROTHROMBIN TIME 13.3 seconds (11.9-14.5)
--- NOTE | 2019-10-31 06:54 | NUR ---
Bedside report given to day nurse. Patient resting in bed, no s/s of distress or c/o pain at this time. All safety measures in place.
--- NOTE | 2019-10-31 06:55 | NUR ---
walking rounds completed, change of shift report received from overnight stocker RN. pt in stable condition.
[2019-10-31 07:02] LABS: ALANINE AMINOTRANSFERASE 23 IU/L (0-55); ALBUMIN 3.4 g/dL (3.5-5.0); ALBUMIN/GLOBULIN RATIO 1.3 (0.8-2.0); ALKALINE PHOSPHATASE 78 IU/L (40-150); ANION GAP 12.1 mmol/L (8-16); BLOOD UREA NITROGEN 19 mg/dL (7-26); BUN/CREATININE RATIO 23 (6-25); CALCIUM 9.1 mg/dL (8.4-10.2); CARBON DIOXIDE 25 mmol/L (22-29); CHLORIDE 107 mmol/L (98-107); CREATININE, SERUM 0.83 mg/dL (0.57-1.11); EST GLOMERULAR FILTRATION RATE > 60 ML/MIN (60-); GLUCOSE 153 mg/dL (74-118); POTASSIUM 4.1 mmol/L (3.5-5.1); SODIUM 140 mmol/L (136-145)
[2019-10-31] MEDS ORDERED: WARFARIN SOD 2.5 MG TAB PO SCH (09:00)
--- NOTE | 2019-10-31 09:57 | NUR ---
paged Dr. Rodriguez regarding pt's complaint of difficulty urinating last night with some hematuria and passing a few small clots. awaiting callback.
--- NOTE | 2019-10-31 11:30 | NUR ---
pt's blood pressure 172/72; awaiting callback from Dr Rodriguez for orders.
--- NOTE | 2019-10-31 12:59 | NUR ---
Dr Rodriguez at bedside; informed him of the hematuria but pt has been voiding without difficulty today. He wants PT to get pt up and moving and increase mobility; PRN Clonidine ordered for blood pressure.
[2019-10-31] MEDS ORDERED: CLONIDINE HCL 0.2 MG TAB PO PRN (13:00)
[2019-10-31] MEDS: VALSARTAN 160 MG TAB PO SCH (13:09)
--- NOTE | 2019-10-31 17:21 | NUR ---
pt c/o nausea with 2 episodes of vomiting as well as some tightness to her chest and mild headache. paged Dr. Rodriguez who states pt refused to have a cardiology consult. he ordered 50mg Metoprolol PO now and q12h and Zofran 8mg q6h. will administer medication and continue to monitor.
--- NOTE | 2019-10-31 17:22 | Progress Note ---
DATE: SUBJECTIVE: The patient has some improvement, but still has dyspnea. She has some wheezing. She has some cough. PHYSICAL EXAMINATION: VITAL SIGNS: The patient remained afebrile. The blood pressure is elevated at 172/72, pulse is 95. HEENT: Shows no facial swelling or erythema. CARDIAC: Reveals regular rate and rhythm with normal S1 and S2. There are no murmurs or rubs. LUNGS: Auscultation of lungs reveals clear breath sounds bilaterally. There is no wheezing. ABDOMEN: Soft, nontender. There is no rebound or guarding. EXTREMITIES: Show no leg edema or calf tenderness. There is no cyanosis or clubbing. SKIN: Shows no rashes. IMPRESSION: 1. Chronic obstructive pulmonary disease with acute exacerbation. 2. Hypertension. 3. Remote history of pulmonary emboli. PLAN: 1. Continue Solu-Medrol, antibiotics and bronchodilators. 2. Continue warfarin. 3. Continue Diovan daily with clonidine p.r.n. Demarcus Rodriguez MD [facility]/[place] /[id number]
[2019-10-31] MEDS ORDERED: ONDANSETRON HCL INJ 2MG/ML 2ML 2 MG/ML VIAL IV PRN (17:30)
[2019-10-31] MEDS: WARFARIN SOD 2 MG TAB PO SCH (17:43)
[2019-10-31] MEDS: METOPROLOL TARTRATE 50 MG TAB PO SCH (17:44)
--- NOTE | 2019-10-31 19:12 | NUR ---
Received bedside report from day nurse. Patient resting in bed, no s/s of distress or c/o pain at this time. All safety measures in place. Will continue to monitor.
[2019-11-01] VITALS: BP 136/82
[2019-11-01] MEDS: DOXYCYCLINE 100MG/NS 100ML 100 ML IV SCH (00:09)
[2019-11-01] MEDS: ALBUTEROL/IPRATROPIUM 3 ML NEB NEB SCH ×3 (03:05→10:35)
[2019-11-01 04:00] VITALS: BP 139/67
[2019-11-01 06:38] LABS: INR 0.98; PROTHROMBIN TIME 13.5 seconds (11.9-14.5)
--- NOTE | 2019-11-01 07:03 | NUR ---
walking rounds completed, change of shift report received from assistant shift supervisor RN. pt in stable condition.
[2019-11-01 07:39] VITALS: BP 137/64
[2019-11-01 08:50] VITALS: BP 137/64
[2019-11-01] MEDS: VALSARTAN 160 MG TAB PO SCH (08:54)
[2019-11-01] MEDS: METOPROLOL TARTRATE 50 MG TAB PO SCH (08:55)
[2019-11-01] MEDS: METHYLPREDNISOLONE SOD SUCC 40 MG/ML VIAL 1ML IV SCH (08:56)
[2019-11-01] MEDS ORDERED: DIOVAN160 MG PO (10:53)
[2019-11-01] MEDS ORDERED: METOPROLOL TART50 MG PO (10:53)
[2019-11-01] MEDS ORDERED: CEFDINIR300 MG PO (10:54)
[2019-11-01] MEDS ORDERED: PREDNISONE10 MG PO (10:55)
--- NOTE | 2019-11-02 08:12 | Discharge Summary ---
DISCHARGE DIAGNOSES: 1. Chronic obstructive pulmonary disease with acute exacerbation. 2. Hypertension. 3. Remote history of pulmonary embolism. HISTORY OF PRESENT ILLNESS: The patient is a 74-year-old woman. She has a history of prior pulmonary emboli and is on warfarin. She uses oxygen at home. She also uses nebulizer treatments at home. She came in complaining of worsening dyspnea and congestion. HOSPITAL COURSE: The patient was admitted. She was started on antibiotics and IV Solu-Medrol, along with aggressive bronchodilators. She had gradual improvement with this. Over several days, her wheezing abated and she felt better. She was eager to go home at the time of discharge. Her hospital course was complicated by high blood pressure. Her benazepril was stopped and she was started on Diovan. Metoprolol was also added to her regimen. DISPOSITION: The patient will be discharged home and will follow up with Dr. Rodriguez in 1 week. MD [facility]/[place] /[id number]
== END 2019-11-01 11:45 | disposition home or self-care (01) | DRG 192 ==
LOC: ER 21:59 → ERHOLD 10-30 00:47 → MED/SURG3 10-30 11:25 → OBSVTOIN 10-30 12:43
PROVIDERS: ADMIT Internal Medicine Critical Care Medicine; ATTEND Internal Medicine Critical Care Medicine
DX: J44.1 Chronic obstructive pulmonary disease with (acute) exacerbation (principal); I10 Essential (primary) hypertension; Z86.711 Personal history of pulmonary embolism; Z99.81 Dependence on supplemental oxygen
CPT/HCPCS: 36415; 71046; 80053; 82550; 82553; 83880; 84484; 85025; 85610; 93005; 94640; 99285; J0360; J2405; J2920; J2930; J7050

== ENCOUNTER 2020-01-31 06:47 | Inpatient (IN) | payer MEDICARE ==
[~2020-01-31] VITALS: Ht 165.1 cm; Wt 116.6 kg
[2020-01-31] VITALS (14 sets, daily range): BP systolic 96–191; BP diastolic 46–117
[2020-01-31] MEDS: ALBUTEROL SULF 0.083% NEB SOLN 3 ML NEB NEB SCH ×6 (00:10→20:25)
[~2020-01-31 06:47] MED LIST changes: +DIOVAN160 MG PO; +METOPROLOL TART50 MG PO
[2020-01-31] MEDS ORDERED: ALBUTEROL SULF 0.083% NEB SOLN 3 ML NEB ONE (07:36)
[2020-01-31] MEDS ORDERED: IPRATROPIUM BROMIDE 0.02% 2.5 ML NEB ONE (07:36)
[2020-01-31 07:43] LABS: BASOPHILS # (AUTO) 0.1 (0.0-0.1); BASOPHILS % 0.4 % (0.0-1.0); EOSINOPHILS # (AUTO) 0.4 (0.0-0.4); EOSINOPHILS % 2.6 % (0.0-6.0); HEMATOCRIT 39.4 % (34.2-44.1); HEMOGLOBIN 11.7 g/dL (12.0-16.0); LYMPHOCYTES # (AUTO) 4.5 (1.0-3.2); LYMPHOCYTES % 27.9 % (18.0-39.1); MEAN CORPUSCULAR HEMOGLOBIN 31.6 pg (28-32); MEAN CORPUSCULAR HGB CONC 29.7 g/dL (31-35); MEAN CORPUSCULAR VOLUME 106.5 fL (81-99); MONOCYTES # (AUTO) 1.5 (0.2-0.8); MONOCYTES % 9.6 % (4.4-11.3); NEUTROPHILS # (AUTO) 9.5 (2.1-6.9); PLATELET COUNT 256 x10e3/uL (140-360); RED CELL DISTRIBUTION WIDTH 15.7 % (11.7-14.4)
[2020-01-31 08:06] LABS: ALANINE AMINOTRANSFERASE 21 IU/L (0-55); ALBUMIN 3.3 g/dL (3.5-5.0); ALBUMIN/GLOBULIN RATIO 0.9 (0.8-2.0); ALKALINE PHOSPHATASE 106 IU/L (40-150); ANION GAP 11.9 mmol/L (8-16); BLOOD UREA NITROGEN 20 mg/dL (7-26); BUN/CREATININE RATIO 25 (6-25); CALCIUM 9.4 mg/dL (8.4-10.2); CARBON DIOXIDE 33 mmol/L (22-29); CHLORIDE 105 mmol/L (98-107); CREATINE KINASE 84 IU/L (29-168); EST GLOMERULAR FILTRATION RATE > 60 ML/MIN (60-); GLUCOSE 117 mg/dL (74-118); POTASSIUM 3.9 mmol/L (3.5-5.1); SODIUM 146 mmol/L (136-145)
[2020-01-31] MEDS: CEFEPIME 1GM/NS 0.9% 50 ML 50 ML IV SCH ×2 (10:00→20:57)
--- NOTE | 2020-01-31 10:00 | Diagnostic Imaging Report ---
EXAMINATION: CHEST SINGLE (PORTABLE) INDICATION: Shortness of breath. COMPARISON: Chest radiograph 12/06/2019. FINDINGS: TUBES and LINES: None. LUNGS: Emphysematous lungs with mild hyperinflation. Mild perihilar and interstitial opacities. Patchy bibasilar opacities. PLEURA: No pleural effusion or pneumothorax. HEART AND MEDIASTINUM: The cardiomediastinal silhouette is unremarkable. BONES AND SOFT TISSUES: No acute osseous lesion. Soft tissues are unremarkable. UPPER ABDOMEN: No free air under the diaphragm. IMPRESSION: Emphysematous lungs with mild interstitial edema. Patchy bibasilar opacities, likely atelectasis. Infection is possible in the appropriate clinical setting. Signed by: Dr. Geoffrey Reyes MD on 01/31/2020 9:58 AM
[2020-01-31] MEDS ORDERED: VANCOMYCIN 1GM/NS 250 ML 250 ML IV ONE (10:02)
[2020-01-31] MEDS ORDERED: SODIUM CHLORIDE 0.9% 1000ML 1,000 ML ONE (10:12)
[2020-01-31] MEDS ORDERED: SODIUM CHLORIDE 0.9% 1000ML 1,000 ML IV SCH (10:15)
[2020-01-31] MEDS ORDERED: CEFEPIME HCL 2 GM VIAL ONE (10:20)
[2020-01-31] MEDS ORDERED: SODIUM CHLORIDE 0.9% 1000ML 1,000 ML IV ONE (10:30)
[2020-01-31] MEDS ORDERED: TRAMADOL HCL 50 MG TAB PO PRN (10:30)
[2020-01-31 10:33] LABS: INR 0.95; PROTHROMBIN TIME 13.2 seconds (11.9-14.5)
--- NOTE | 2020-01-31 10:41 | NUR ---
GREEN SHEET ON CHART PER PROTOCOL.
--- NOTE | 2020-01-31 11:44 | NUR ---
PICC RN has arrived to place PICC line at this time. Patient verbalizes an understanding of the procedure to be performed per MD order. Consent is complete and is on chart. Time Out performed at bedside with PICC RN & this clinician. Vitals WNL. Will continue to monitor.
[2020-01-31] MEDS: IPRATROPIUM BROMIDE 0.02% 2.5 ML NEB NEB SCH ×4 (12:40→23:00)
--- NOTE | 2020-01-31 13:41 | Diagnostic Imaging Report ---
EXAMINATION: CHEST XRAY LINE PLACEMENT INDICATION: PICC placement. COMPARISON: Chest radiograph 01/31/2020. FINDINGS: TUBES and LINES: Interval placement of left arm PICC which terminates at the cavoatrial junction. LUNGS: Mildly hyperinflated lungs. Perihilar and interstitial opacities. Patchy bibasilar opacities, likely atelectasis. PLEURA: No pleural effusion or pneumothorax. HEART AND MEDIASTINUM: The cardiomediastinal silhouette is unremarkable. There are atherosclerotic calcifications within the aorta. BONES AND SOFT TISSUES: No acute osseous abnormality. UPPER ABDOMEN: No free air under the diaphragm. IMPRESSION: Interval placement of left arm PICC which terminates at the cavoatrial junction. No evidence of pneumothorax. Persistent mild pulmonary interstitial edema. Signed by: Dr. Geoffrey Reyes MD on 01/31/2020 1:38 PM
[2020-01-31] MEDS ORDERED: CEFEPIME HCL 1 GM VIAL IV SCH (14:00)
--- NOTE | 2020-01-31 14:26 | History and Physical ---
CHIEF COMPLAINT: Coughing, fever, and worsening dyspnea. HISTORY OF PRESENT ILLNESS: The patient is a 74-year-old woman. She has a history of severe COPD. She uses oxygen at home. She has a nebulizer at home. She also has a history of 2 prior pulmonary emboli. She has been on warfarin. She came to the office about 2 weeks ago complaining of worsening dyspnea and congestion. She received Solu-Medrol as an outpatient along with the antibiotics. She has also been using her nebulizer at home, but has persistent wheezing and difficulty breathing. She has severe leg swelling and poor ambulation. She subsequently came to the emergency department. PAST SURGICAL HISTORY: 1. Status post back surgery x2. 2. Status post knee surgery. PAST MEDICAL HISTORY: 1. History of 2 prior pulmonary emboli. 2. Severe COPD. 3. Degenerative arthritis. ALLERGIES: THE PATIENT HAS NO KNOWN DRUG ALLERGIES. SOCIAL HISTORY: The patient quit smoking. She is not active drinker. FAMILY HISTORY: Family history is noncontributory. REVIEW OF SYSTEMS: The patient has no headache. She has no fevers. She is not complaining of any neck pain. She does not have any chest pain. She does have some cough and congestion. She has worsening dyspnea. She has no abdominal pain. She has 3+ leg edema. She complains of weakness. PHYSICAL EXAMINATION: VITAL SIGNS: The patient is afebrile. The blood pressure is 162/84 and saturation is 100% on 3 L. The pulse is 91. HEENT: Shows no facial swelling or erythema. CARDIAC: Reveals regular rate and rhythm with normal S1 and S2. LUNGS: Auscultation of lungs reveals a prolonged expiratory phase bilaterally. There are decreased breath sounds. ABDOMEN: Soft and nontender. There is no rebound or guarding. EXTREMITIES: Shows 2 to 3+ leg edema. NEUROLOGIC: Shows no focal abnormalities. LABORATORY DATA: White blood cell count is 16 and the hemoglobin is 11.7. The platelet count is 256. The BUN to creatinine ratio is 20 to 0.8. Other electrolytes are within normal limits. The INR is still pending. RADIOGRAPHIC DATA: Chest x-ray shows poor inspiratory effort with bilateral basal infiltrates versus atelectasis. IMPRESSION: 1. Pneumonia with sepsis, present on admission. 2. Chronic obstructive pulmonary disease with acute exacerbation. 3. Right-sided heart failure secondary to chronic cor pulmonale. 4. Nasal swab for influenza. 5. Speech therapy evaluation. MD CAL[facility]/[place] /[id number]
[2020-01-31] MEDS ORDERED: SODIUM CHLORIDE 0.9% 250ML 250 ML ONE ×2 (17:36→19:37)
[2020-01-31] MEDS: WARFARIN SOD 3 MG TAB PO SCH (18:40)
[2020-01-31] MEDS: METOPROLOL TARTRATE 50 MG TAB PO SCH (18:40)
[2020-01-31] MEDS: AZITHROMYCIN 500MG/NS 250 ML 250 ML IV SCH (18:40)
[2020-01-31] MEDS ORDERED: INFLUENZA VIRUS VAC SPLIT INJ 0.5 ML SYR IM SCH (18:43)
[2020-01-31] MEDS ORDERED: PNEUMOCOCCAL VACCINE POLYVALENT 23 MCG/0.5 ML VIAL IM SCH (18:43)
--- NOTE | 2020-01-31 19:00 | NUR ---
Bedside report and walking rounds completed with off going nurse. Patient in bed with 02 on 4L. Call light within reach. Will continue to monitor closely.
[2020-01-31 19:19] LABS: CREATINE KINASE MB 4.2 ng/mL (0-5.0)
--- NOTE | 2020-01-31 20:18 | NUR ---
In room with patient, patient on BSC c/o SOB. 02 sat 67% on 02 4L NC. Patient diaphoretic. MID LEVEL PROVIDER called.
[2020-01-31] MEDS: METHYLPREDNISOLONE SOD SUCC 125 MG/2ML VIAL IV SCH (20:25)
--- NOTE | 2020-01-31 20:28 | NUR ---
Notified Dr Rodriguez regarding SIZE MAKER called for 02 sat 67% on 4L NC, giving breathing treatment, placed on bipap and moving to IMCU per ER MD. No new orders.
[2020-01-31] MEDS ORDERED: FUROSEMIDE INJ 10 MG/ML 2 ML VIAL IV ONE (20:45)
--- NOTE | 2020-01-31 20:54 | NUR ---
Lasix 20mg IV given per MD Dr Rodriguez order.
--- NOTE | 2020-01-31 20:55 | NUR ---
2044 Patient on BIPAP, not responsive to verbal stimuli, slight grimace to painful stimuli. Bilateral peripheral radial pulse stong and equal, 02 sat 98%. Charge nurse and ICU charge nurse notified. 2046 FSBS 160 2054 ICU Charge reported speaking to Dr Rodriguez and patient to go to ICU.
--- NOTE | 2020-01-31 21:12 | NUR ---
Patient transferred to ICU Bed 192 with ICU Charge nurse, resp therapist and bipap. Report given at bedside.
--- NOTE | 2020-01-31 21:16 | NUR ---
Attempted to notify family members Valentina Spann [phone] Left message 2014 and Harika Kidd [phone], left message 2016. ICU notified messages left for family to notify of transfer.
--- NOTE | 2020-01-31 21:23 | Diagnostic Imaging Report ---
EXAMINATION: CHEST SINGLE (PORTABLE) INDICATION: Short of breath COMPARISON: Chest x-ray 01/31/2020 FINDINGS: TUBES and LINES: Left upper extremity PICC, tip terminates in the superior cavoatrial junction.. LUNGS: Hyperinflated lungs. Increased pulmonary interstitial lung markings and prominent pulmonary vasculature. PLEURA: The diaphragms in the included on this exam. HEART AND MEDIASTINUM: Cardiac size is mildly enlarged. BONES AND SOFT TISSUES: No acute osseous lesion. Soft tissues are unremarkable. UPPER ABDOMEN: No free air under the diaphragm. IMPRESSION: Mild cardiomegaly and pulmonary vascular congestion. Mild pulmonary interstitial edema is suspected. Pulmonary emphysema. Signed by: Troy Puga DO on 01/31/2020 9:21 PM
[2020-01-31] MEDS ORDERED: BENZOCAINE/TETRACAINE/BUTAMBEN AERO SPRAY 56 GM CAN ONE (21:41)
[2020-01-31] MEDS ORDERED: ENOXAPARIN SOD INJ 60 MG/0.6 ML SYR SC STA (22:03)
[2020-01-31] MEDS ORDERED: LORAZEPAM INJ 2 MG/ML VIAL ONE (22:08)
[2020-01-31] MEDS ORDERED: LORAZEPAM INJ 2 MG/ML VIAL IV ONE (22:15)
[2020-01-31] MEDS: PROPOFOL IV EMULSION 10MG/ML 100 ML IV SCH (22:15)
--- NOTE | 2020-01-31 23:41 | NUR ---
Patient was arousable and answering questions appropriately upon arrival to ICU. O2 sat 100% on bipap. Dr. Rodriguez at bedside evaluating patient. Patient informed of need of intubation by MD and agreed with plan of care. Dr. Rodriguez spoke with family regarding intubation and pt condition. Patient intubated at [address] Rodriguez with RT, ICU manager metrology, ER manager metrology, and bedside RN at bedside. Orders received. Family member Nancy updated with patient condition at 2336.
--- NOTE | 2020-01-31 23:48 | Diagnostic Imaging Report ---
EXAMINATION: CHEST SINGLE (PORTABLE) INDICATION: Intubated, verify tube position COMPARISON: Chest x-ray 01/31/2020 FINDINGS: TUBES and LINES: Endotracheal tube tip projects 2.9 cm above the expected location of the tonie. Left upper injury PICC tip terminates in the superior cavoatrial junction. LUNGS: Hyperinflated lungs. Increased pulmonary interstitial lung markings and prominent pulmonary vasculature. No consolidations. PLEURA: The diaphragms in the included on this exam. HEART AND MEDIASTINUM: Cardiac size is mildly enlarged. BONES AND SOFT TISSUES: No acute osseous lesion. Soft tissues are unremarkable. UPPER ABDOMEN: No free air under the diaphragm. IMPRESSION: Endotracheal tube tip projects 2.9 cm above the expected location of the tonie. Mild cardiomegaly and pulmonary vascular congestion. Mild pulmonary interstitial edema is suspected. Superimposed infection is possible. Pulmonary emphysema. Signed by: Troy Puga DO on 01/31/2020 11:46 PM
[2020-02-01] VITALS (31 sets, daily range): BP systolic 103–152; BP diastolic 5–97
[2020-02-01] MEDS: IPRATROPIUM BROMIDE 0.02% 2.5 ML NEB NEB SCH ×5 (00:10→23:05)
[2020-02-01] MEDS: PROPOFOL IV EMULSION 10MG/ML 100 ML IV SCH ×7 (00:51→22:14)
--- NOTE | 2020-02-01 01:04 | Diagnostic Imaging Report ---
EXAM: Abdomen Radiograph 1 View INDICATION: ^OGT PLACEMENT, verify position COMPARISON: Chest x-ray 01/31/2020 FINDINGS: Bibasilar haziness, left worse than right. Aortic calcifications. Mild cardiomegaly. Enteric tube courses into the left abdomen, tip below field of view, side hole port in the left upper quadrant. No pneumoperitoneum. No acute osseous abnormality. Degenerative changes in the lumbar spine . IMPRESSION: Enteric tube courses into the left abdomen, tip below field of view, side hole port in the left upper quadrant. Bibasilar haziness and probable left basilar consolidation, can be due to atelectasis and/or pneumonia Mild cardiomegaly and pulmonary vascular congestion.. Signed by: Troy Puga DO on 02/01/2020 1:02 AM
--- NOTE | 2020-02-01 02:17 | Operative Report ---
DATE OF PROCEDURE: SURGEON: Demarcus Rodriguez MD PREOPERATIVE DIAGNOSIS: Chronic obstructive pulmonary disease with worsening respiratory failure. POSTOPERATIVE DIAGNOSIS: Chronic obstructive pulmonary disease with worsening respiratory failure. CONSENT: Consent was obtained from the daughter. MEDICATIONS: The patient received etomidate 20 mg IV, the along with succinylcholine 100 mg IV. DESCRIPTION OF PROCEDURE: The patient was placed in a supine position. She was preventilated with an Ambu bag. Her saturation was 100%. She received the etomidate sucks. A glide scope was then used to visualize the glottis. A 7.5 tube was placed through the glottis on the first attempt. There was good CO2 return. There were equal breath sounds bilaterally. COMPLICATIONS: None. ESTIMATED BLOOD LOSS: None. Demarcus Rodriguez MD [facility] /[id number]
[2020-02-01 03:31] LABS: CREATINE KINASE MB 3.2 ng/mL (0-5.0)
[2020-02-01] MEDS: CEFEPIME 1GM/NS 0.9% 50 ML 50 ML IV SCH ×3 (03:41→20:08)
[2020-02-01] MEDS: ALBUTEROL SULF 0.083% NEB SOLN 3 ML NEB NEB SCH ×6 (03:48→23:05)
[2020-02-01 05:47] LABS: BASOPHILS % 0.1 % (0.0-1.0); HEMATOCRIT 33.1 % (34.2-44.1); HEMOGLOBIN 10.1 g/dL (12.0-16.0); LYMPHOCYTES # (AUTO) 1.1 (1.0-3.2); LYMPHOCYTES % 8.7 % (18.0-39.1); MEAN CORPUSCULAR HEMOGLOBIN 32.1 pg (28-32); MEAN CORPUSCULAR HGB CONC 30.5 g/dL (31-35); MEAN CORPUSCULAR VOLUME 105.1 fL (81-99); MONOCYTES # (AUTO) 0.1 (0.2-0.8); MONOCYTES % 0.7 % (4.4-11.3); NEUTROPHILS # (AUTO) 11.2 (2.1-6.9); NEUTROPHILS % 90.1 % (38.7-80.0); PLATELET COUNT 228 x10e3/uL (140-360); RED BLOOD COUNT 3.15 x10e6/uL (3.6-5.1); RED CELL DISTRIBUTION WIDTH 15.5 % (11.7-14.4)
[2020-02-01 06:14] LABS: ALBUMIN 2.9 g/dL (3.5-5.0); ANION GAP 11.9 mmol/L (8-16); CREATININE, SERUM 0.93 mg/dL (0.57-1.11); POTASSIUM 3.9 mmol/L (3.5-5.1)
[2020-02-01] MEDS: METHYLPREDNISOLONE SOD SUCC 125 MG/2ML VIAL IV SCH ×2 (07:57→20:33)
[2020-02-01] MEDS: METOPROLOL TARTRATE 50 MG TAB PO SCH ×2 (08:52→16:58)
[2020-02-01] MEDS ORDERED: WARFARIN SOD 2.5 MG TAB PO SCH (09:00)
[2020-02-01] MEDS ORDERED: SODIUM CHLORIDE 0.9% 250ML 250 ML ONE (09:01)
[2020-02-01 09:12] LABS: INR 0.99; PROTHROMBIN TIME 13.7 seconds (11.9-14.5)
[2020-02-01] MEDS: VANCOMYCIN 1GM/NS 250 ML 250 ML IV SCH (09:16)
[2020-02-01] MEDS: VALSARTAN 160 MG TAB PO SCH (09:16)
--- NOTE | 2020-02-01 09:28 | NUR ---
Nutrition Intervention Note RD Recommendation(s) for Physician: -Tube feeding recommendation when medically feasible: Vital HP at 10 ml/hr advance as tolerated to goal rate of 25 ml/hr (600 kcal, 53 gram protein) -IVF management and flushes per MD. -Propofol at current rate of 26.6 ml/hr provides the pt with an additional 702 kcal. -When extubated, ADAT to 2 gm Na diet per MD. Plan of Care: RD following, monitoring for tolerance and adequacy. TF recs. Nutrition reason for involvement: (TF, ventilated) RD Assessment 01/31: 74 YOF admitted for COPD with PMH listed below. The pt is intubated and sedated on propofol, no pressors. MD ordered TF Glucerna 1.2 at 20 ml/hr with 150 ml water flushed every 4 hours (576 kcal, 29 gram protein). Na is 147, pt will be getting an extra 900 ml of free water. No family was in the room to ask weight/appetite hx. Provided TF recs above. Will continue to monitor. Principal Problems/Diagnoses: COPD PMH: 1. History of 2 prior pulmonary emboli. 2. Severe COPD. 3. Degenerative arthritis. GI: Abd: soft, non-tender, large, round, LBM: not recorded Skin: suspected deep tissue injury on right buttock Labs: 01/31: Na 147, CO2 32, Gluc 154 Meds: Steroid, propofol, abx, warfarin Ht: 65 in Wt: 244 lbs BMI: 40.6 kg/m^2 IBW:125 lbs Malnutrition Evaluation (01/31) The patient does not meet criteria for a specified degree of malnutrition at this time. Will re-evaluate at follow-up as appropriate. Energy intake: -unable to evaluate Weight loss: Pt was 253 lbs in Nov, suggesting a 3.5% weight loss within 2 months which is not significant. Fat loss: none Muscle loss: none Nutrition Prescription (Diet Order): Glucerna 1.2 at 20 ml/hr Estimated Nutritional Needs: Calories: 1249-1420kcal/day (22-25 kcal/kg/day) Weight used : IBW (56.8 kg) Protein :85-114 protein/day (1.5-2 gram/kg/day ) Weight used: IBW Diet Adequacy: Not meeting calorie needs, Not meeting protein needs Diet Education Needs Assessment: Diet education not indicated, patient on temporary/transition diet. Nutrition Care Level: mod Nutrition Diagnosis: Inadequate energy intake related to medical condition as evidenced by pts need for TF and intubation. Goal: Patient will meet 75-100% of estimated needs by follow up Progress: (N/A) Interventions: -( mineral (sodium)-modified diet, Composition, Rate, Route, IVF, Prescription medications, Collaboration with other providers, Monitoring/Evaluation: -Total energy intake, Total protein intake, Formula/Solution, IVF, Prescription medication, Modified diet Signed: Kerri Dan RD, [place] Addendum: 02/01/20 at 0931 by Kerri Dan DIET When propofol is d/c, please advance TF to goal rate of 55 ml/hr (1320 kcal, 115 gram protein) when medically feasible.
--- NOTE | 2020-02-01 09:39 | Diagnostic Imaging Report ---
EXAMINATION: CHEST SINGLE (PORTABLE) INDICATION: Respiratory failure COMPARISON: Chest radiograph 01/31/2020 FINDINGS: LINES/TUBES:Endotracheal tube terminates approximately 1 cm above the tonie. Left PICC line terminates in the SVC. NG tube with tip not visualized. LUNGS:The lungs are moderately inflated. There is perihilar fullness and indistinctness of the pulmonary vasculature. Bibasilar left greater than right opacities, partially silhouetting the left hemidiaphragm. PLEURA:No pleural effusion or pneumothorax. MEDIASTINUM:The cardiomediastinal silhouette appears unchanged in size and shape. BONES/SOFT TISSUES:No acute osseous injury. ABDOMEN:No free air under the diaphragm. IMPRESSION: No significant interval change. Signed by: Fco Contreras MD on 02/01/2020 9:36 AM
--- NOTE | 2020-02-01 10:10 | Progress Note ---
DATE: SUBJECTIVE: The patient had worsening trouble breathing with a CO2 of 119 last night. A pH was 7.07. She required intubation and has been on mechanical ventilation overnight. She continues to have thick secretions. She was placed on a spontaneous breathing trial this morning, but became tachypneic very quickly. PHYSICAL EXAMINATION: VITAL SIGNS: The patient is afebrile. The blood pressure is 125/52, saturation is 100% on assist-control at rate of 18. HEENT: Shows no facial swelling or erythema. There is a nasogastric tube in place. There is a PICC line in place. CARDIAC: Reveals regular rate and rhythm with normal S1, S2. LUNGS: Auscultation of lungs reveals rhonchorous breath sounds bilaterally. There is no wheezing. ABDOMEN: Soft and nontender. There is no rebound or guarding. EXTREMITIES: Show no leg edema or calf tenderness. There is no cyanosis or clubbing. SKIN: Shows no rashes. NEUROLOGICAL: Shows no focal abnormalities. LABORATORY DATA: The BUN to creatinine ratio is 21 to 0.93. The sodium is 147. White blood cell count is 12.4 and hemoglobin is 10.1. The platelet count is 228. IMPRESSION: 1. Acute on chronic respiratory failure. 2. Pneumonia with severe sepsis, present on admission. 3. Right-sided congestive heart failure secondary to cor pulmonale. 4. Hypernatremia. 5. Anemia, unspecified. 6. History of prior pulmonary embolism. 7. History of prior back surgery. PLAN: 1. Continue mechanical ventilation for now. 2. Solu-Medrol and aggressive bronchodilators. 3. Broaden antibiotics to cover for hospital-acquired pathogens. 4. Begin enteral feedings. 5. DVT prophylaxis. 6. Long-term prognosis is poor. We have consulted the Palliative Care and they will discuss treatment goals with the family. 7. Case discussed with Respiratory, nursing, and daughter. Greater than 35 minutes direct critical care time. Demarcus Rodriguez MD [facility] /[id number]
--- NOTE | 2020-02-01 14:37 | NUR ---
WOUND CARE CONSULT FOR 74 YO FEMALE HX OF COPD NAKUL 10 ON STRICT PUP STATUS AND INTERVENTIONS AND ALTERNATING PRESSURE MATTRESS LABS: WBC-12.43 HGB_10.1 GLUCOSE-154 SKIN ASSESSMENT COMPLETE PATIENT PRESENTS WITH RIGHT BUTTOCKS DTI DARK PURPLE MEASURES 1.5CM X 1.5 CM UNOPENED NON BLANCHABLE PURPLE AREA RECOMMENDATIONS: NURSING TO CONTINUE TO MAINTAIN STRICT PUP STATUS AND INTERVENTIONS AND ALTERNATING PRESSURE MATTRESS NURSING TO CONTINUE TO ASSIST PATIENT OUT OF BED FOR MEALS AND MUCH TOLERATED NURSING TO CONTINUE TO ASSIST PATIENT NEEDED WITH MEALS AND NUTRITIONAL SUPPLEMENTS TO ENSURE PROPER REQUIREMENTS FOR HEALING NURSING TO CONTINUE TO OFFLOAD FEET AND HEELS NEEDED WITH PILLOW SUSPENSION WHEN IN BED NURSING TO APPLY VENELEX OINTMENT DAILY TO RIGHT BUTTOCKS DTI AND COVER WITH ALLEVYN FOAM DRESSING Addendum: 02/01/20 at 1444 by Markus Rice RN Amended: Links added.
[2020-02-01] MEDS: AZITHROMYCIN 500MG/NS 250 ML 250 ML IV SCH (16:57)
[2020-02-01] MEDS: WARFARIN SOD 3 MG TAB PO SCH (16:58)
[2020-02-01] MEDS ORDERED: ETOMIDATE 2 MG/ML 10 ML INJ IV ONE (18:10)
[2020-02-01] MEDS ORDERED: SUCCINYLCHOLINE CHLORIDE 20 MG/ML 10ML VIAL ONE (18:10)
--- NOTE | 2020-02-01 19:02 | NUR ---
Pts daugter at bedside. Per daughter, she took all 4 rings off of patient and is taking them home with her. Rings observed in daughters possession.
[2020-02-02] VITALS (25 sets, daily range): BP systolic 113–154; BP diastolic 50–97
[2020-02-02] MEDS: PROPOFOL IV EMULSION 10MG/ML 100 ML IV SCH ×3 (00:54→13:47)
[2020-02-02] MEDS: ALBUTEROL SULF 0.083% NEB SOLN 3 ML NEB NEB SCH ×6 (02:50→23:30)
[2020-02-02] MEDS: CEFEPIME 1GM/NS 0.9% 50 ML 50 ML IV SCH ×3 (03:38→20:24)
[2020-02-02 05:52] LABS: ALBUMIN 2.8 g/dL (3.5-5.0); ALBUMIN/GLOBULIN RATIO 0.9 (0.8-2.0); CREATININE, SERUM 0.93 mg/dL (0.57-1.11)
[2020-02-02 05:56] LABS: BASOPHILS % 0.1 % (0.0-1.0); HEMOGLOBIN 10.1 g/dL (12.0-16.0); LYMPHOCYTES % 9.9 % (18.0-39.1); MEAN CORPUSCULAR HEMOGLOBIN 31.3 pg (28-32); MEAN CORPUSCULAR HGB CONC 30.6 g/dL (31-35); MEAN CORPUSCULAR VOLUME 102.2 fL (81-99); MONOCYTES % 4.2 % (4.4-11.3); NEUTROPHILS % 85.4 % (38.7-80.0); PLATELET COUNT 235 x10e3/uL (140-360); RED BLOOD COUNT 3.23 x10e6/uL (3.6-5.1); RED CELL DISTRIBUTION WIDTH 15.4 % (11.7-14.4)
[2020-02-02 05:57] LABS: LYMPHOCYTES # (AUTO) 1.3 (1.0-3.2); MONOCYTES # (AUTO) 0.6 (0.2-0.8); NEUTROPHILS # (AUTO) 11.4 (2.1-6.9)
[2020-02-02] MEDS: IPRATROPIUM BROMIDE 0.02% 2.5 ML NEB NEB SCH ×3 (07:15→23:30)
[2020-02-02 07:23] LABS: ABG PCO2 119 mmHg (41-51); ABG PH 7.08 (7.31-7.41); ABG PO2 224 mmHg (80-105)
[2020-02-02 07:24] LABS: ABG HCO3 35 mmol/L (23-28)
--- NOTE | 2020-02-02 07:43 | Diagnostic Imaging Report ---
EXAMINATION: CHEST SINGLE (PORTABLE) INDICATION: Respiratory failure COMPARISON: Chest radiograph 02/01/2020. FINDINGS: Limited portable radiograph. The right costophrenic angle is partially excluded from the [id number]. LINES/TUBES:Endotracheal tube terminates 1.5 cm above the tonie. Left PICC terminates at the cavoatrial junction. Enteric tube courses into the stomach, the tip is not seen. LUNGS:The lungs are moderately inflated. There is perihilar fullness and indistinctness of the pulmonary vasculature. Bibasilar left greater than right opacities, partially silhouetting the left hemidiaphragm. PLEURA:Possible trace bilateral pleural effusions. No evidence of pneumothorax. MEDIASTINUM:The cardiomediastinal silhouette appears unchanged in size and shape. BONES/SOFT TISSUES:No acute osseous injury. ABDOMEN:No free air under the diaphragm. IMPRESSION: Persistent pulmonary edema and lower lung zone opacities, which may represent atelectasis or pneumonia. Signed by: Dr. Geoffrey Reyes MD on 02/02/2020 7:40 AM
[2020-02-02] MEDS: METHYLPREDNISOLONE SOD SUCC 125 MG/2ML VIAL IV SCH ×2 (08:54→20:24)
[2020-02-02] MEDS: VANCOMYCIN 1GM/NS 250 ML 250 ML IV SCH (08:55)
[2020-02-02] MEDS: BALSAM PERU/CASTOR OIL 60 GM OINT...G. TP SCH (08:55)
[2020-02-02] MEDS: VALSARTAN 160 MG TAB PO SCH (08:55)
[2020-02-02] MEDS: METOPROLOL TARTRATE 50 MG TAB PO SCH ×2 (08:55→16:14)
[2020-02-02] MEDS ORDERED: ACETAZOLAMIDE SODIUM 500 MG/VIAL IV ONE (09:15)
--- NOTE | 2020-02-02 09:25 | Progress Note ---
DATE: SUBJECTIVE: The patient remains on the mechanical ventilator. She is sedated on Diprivan. Case was discussed with the daughter and family yesterday and again with the son this morning. They understand this is a chronic respiratory problem. The patient is now DNR and they are leaning towards possible withdrawal. PHYSICAL EXAMINATION: VITAL SIGNS: Blood pressure is 154/72, saturation 100%, respiratory rate is 16, and the patient is set on assist control of 16 with a tidal volume of 450. HEENT: Shows no facial swelling or erythema. CARDIAC: Reveals regular rate and rhythm with normal S1 and S2. There are no murmurs or rubs. LUNGS: Auscultation of lungs reveals decreased breath sounds at the bases. There is a prolonged expiratory phase. ABDOMEN: Soft, nontender. There is no rebound or guarding. EXTREMITIES: Show no leg edema or calf tenderness. There is no cyanosis or clubbing. SKIN: Shows no rashes. NEUROLOGICAL: Shows the patient to be sedated. LABORATORY DATA: White blood cell count is 13.3 and hemoglobin is 10.1. The platelet count is 235. The BUN to creatinine ratio is 23 to 0.93. RADIOGRAPHIC DATA: Chest x-ray shows persistent pulmonary edema and lower lung zone opacities. This is suggestive of atelectasis versus pneumonia. IMPRESSION: 1. Sqmty-bi-lkhthpf respiratory failure. 2. Healthcare-associated pneumonia with severe sepsis, present on admission. 3. Right-sided congestive heart failure secondary to cor pulmonale. 4. Anemia, unspecified. 5. History of prior pulmonary emboli. PLAN: 1. Repeat ABG. 2. Continue Solu-Medrol and antibiotics. 3. Continue to monitor PT and INR. 4. Continue warfarin. 5. Continue enteral feedings. 6. Prognosis remains very poor. The family is leaning towards withdrawal and palliative care. 7. Case discussed with the daughter, son, and nursing staff. Greater than 35 minutes in direct critical care time. Demarcus Rodriguez MD [facility] /[id number]
[2020-02-02 10:51] LABS: ABG PH 7.43 (7.31-7.41)
[2020-02-02 10:52] LABS: ABG HCO3 34 mmol/L (23-28); ABG PCO2 51 mmHg (41-51); ABG PO2 110 mmHg (80-105)
--- NOTE | 2020-02-02 15:08 | NUR ---
SPOKE TO REGARDING FAMILY CHOICE TO EXTUBATE PATIENT,FAMILY STATES THEY WANT IT DONE CLOSER TO 1730. PER OKAY FOR THAT TIME WILL EXTUBATE TO [facility].
[2020-02-02] MEDS: AZITHROMYCIN 500MG/NS 250 ML 250 ML IV SCH (16:13)
[2020-02-02] MEDS: WARFARIN SOD 3 MG TAB PO SCH (16:14)
--- NOTE | 2020-02-02 16:55 | NUR ---
SEDATION OFF AT THIS TIME, FAMILY IN ROOM
--- NOTE | 2020-02-02 18:19 | NUR ---
PT EXTUBATED PLACED ON 6L NC [facility]
[2020-02-02] MEDS: ZOLPIDEM TARTRATE 5 MG TAB PO PRN (21:50)
[2020-02-03] VITALS (21 sets, daily range): BP systolic 116–160; BP diastolic 42–114
[2020-02-03] MEDS: ALBUTEROL SULF 0.083% NEB SOLN 3 ML NEB NEB SCH ×6 (02:30→22:55)
[2020-02-03] MEDS: CEFEPIME 1GM/NS 0.9% 50 ML 50 ML IV SCH ×3 (04:29→20:54)
[2020-02-03 05:44] LABS: BASOPHILS % 0.1 % (0.0-1.0); HEMOGLOBIN 10.4 g/dL (12.0-16.0); LYMPHOCYTES # (AUTO) 0.7 (1.0-3.2); LYMPHOCYTES % 4.7 % (18.0-39.1); MEAN CORPUSCULAR HEMOGLOBIN 31.7 pg (28-32); MEAN CORPUSCULAR HGB CONC 30.6 g/dL (31-35); MEAN CORPUSCULAR VOLUME 103.7 fL (81-99); MONOCYTES # (AUTO) 0.4 (0.2-0.8); MONOCYTES % 2.9 % (4.4-11.3); NEUTROPHILS # (AUTO) 13.1 (2.1-6.9); NEUTROPHILS % 91.7 % (38.7-80.0); PLATELET COUNT 250 x10e3/uL (140-360); RED BLOOD COUNT 3.28 x10e6/uL (3.6-5.1); RED CELL DISTRIBUTION WIDTH 15.5 % (11.7-14.4)
[2020-02-03 05:54] LABS: INR 0.99; PROTHROMBIN TIME 13.7 seconds (11.9-14.5)
[2020-02-03 06:02] LABS: ALANINE AMINOTRANSFERASE 20 IU/L (0-55); ALBUMIN 2.8 g/dL (3.5-5.0); ALBUMIN/GLOBULIN RATIO 0.9 (0.8-2.0); ALKALINE PHOSPHATASE 77 IU/L (40-150); ANION GAP 13.4 mmol/L (8-16); BLOOD UREA NITROGEN 29 mg/dL (7-26); BUN/CREATININE RATIO 32 (6-25); CALCIUM 9.1 mg/dL (8.4-10.2); CARBON DIOXIDE 29 mmol/L (22-29); CHLORIDE 108 mmol/L (98-107); CREATININE, SERUM 0.91 mg/dL (0.57-1.11); EST GLOMERULAR FILTRATION RATE > 60 ML/MIN (60-); GLUCOSE 164 mg/dL (74-118); POTASSIUM 4.4 mmol/L (3.5-5.1); SODIUM 146 mmol/L (136-145)
[2020-02-03] MEDS: IPRATROPIUM BROMIDE 0.02% 2.5 ML NEB NEB SCH ×3 (07:00→22:55)
[2020-02-03] MEDS: BALSAM PERU/CASTOR OIL 60 GM OINT...G. TP SCH (08:22)
[2020-02-03] MEDS: METHYLPREDNISOLONE SOD SUCC 125 MG/2ML VIAL IV SCH ×2 (08:24→20:54)
[2020-02-03] MEDS: VANCOMYCIN 1GM/NS 250 ML 250 ML IV SCH (08:30)
[2020-02-03] MEDS ORDERED: ENOXAPARIN SOD INJ 60 MG/0.6 ML SYR SC ONE (08:45)
[2020-02-03] MEDS: VALSARTAN 160 MG TAB PO SCH (09:00)
[2020-02-03] MEDS: METOPROLOL TARTRATE 50 MG TAB PO SCH ×2 (09:00→16:02)
--- NOTE | 2020-02-03 09:50 | Progress Note ---
DATE: SUBJECTIVE: The patient was DNR by the family. She was extubated yesterday. She will continue to receive antibiotics, Solu-Medrol, and oxygen, but she will not receive mechanical ventilation or CPR. PHYSICAL EXAMINATION: VITAL SIGNS: The patient is afebrile. The blood pressure is 116/42. Saturation is 97% on 6 L. HEENT: Shows no facial swelling or erythema. CARDIAC: Reveals regular rate and rhythm with normal S1 and S2. LUNGS: Auscultation of lungs reveals wheezing in both lung cordero. There is a prolonged expiratory phase. ABDOMEN: Soft, nontender. There is no rebound or guarding. EXTREMITIES: Show 1 to 2+ leg edema. LABORATORY DATA: Sodium is 146. BUN to creatinine ratio is normal. White blood cell count is 14.3 and hemoglobin is 10.4. The platelet count is 250. INR is 0.99. IMPRESSION: 1. Acute on chronic respiratory failure. 2. Healthcare associated pneumonia with severe sepsis, present on admission. 3. Chronic cor pulmonale. 4. Anemia, unspecified. 5. History of pulmonary emboli. PLAN: 1. Continue Solu-Medrol and antibiotics. 2. Continue oxygen. 3. Continue antibiotics. 4. Continue to monitor blood counts and INR. 5. Physical therapy. 6. Transfer out of ICU. Demarcus Rodriguez MD [facility] /[id number]
[2020-02-03] MEDS: AZITHROMYCIN 500MG/NS 250 ML 250 ML IV SCH (16:02)
[2020-02-03] MEDS: WARFARIN SOD 3 MG TAB PO SCH (16:02)
--- NOTE | 2020-02-03 17:48 | NUR ---
Bedside swallow evaluation done today, per speech they will assess again tomorrow. Pt eval ordered. Physical therapy recommended SNF for pt. Medical surgical floor orders given. Will continue to monitor.
--- NOTE | 2020-02-03 21:30 | NUR ---
PATIENT ARRIVED TO THE FLOOR VIA BED, DOWNGRADE FROM ICU, AWAKE ALERT, NO RESP DISTRESS NOTED, OXYGEN 6L PER NASAL CANNULA, CASTILLO PICC PATENT FLUSHES WELL x 2 LUMENS, SKIN WARM DRY, DTI ON RIGHT BUTTOCK NOTED, VENELEX/FOAM CARE GIVEN, PATIENT q2t, ENCOURAGED TO TURN, CURRENTLY REFUSING TO BE REPOSITIONED, PLAN OF CARE PALLATIVE -VS- SNF, FAMILY HAS TO BE CONSULTED, MD OCAMPO CONSULTED FOR PALLATIVE CARE CONSULT
[2020-02-03] MEDS: ZOLPIDEM TARTRATE 5 MG TAB PO PRN (21:44)
--- NOTE | 2020-02-03 22:59 | NUR ---
Report given to Eloina. Patient transferred with all belongings to [facility] via bed by RNs. No acute distress noted. Daughter, Harika, notified of room transfer. Addendum: 02/03/20 at 2302 by Arcelia Mackey RN At 2119.
[2020-02-04] VITALS (10 sets, daily range): BP systolic 114–158; BP diastolic 59–74
[2020-02-04] MEDS: ALBUTEROL SULF 0.083% NEB SOLN 3 ML NEB NEB SCH ×6 (03:00→23:10)
[2020-02-04] MEDS: CEFEPIME 1GM/NS 0.9% 50 ML 50 ML IV SCH ×3 (05:50→21:55)
[2020-02-04 05:57] LABS: HEMATOCRIT 33.8 % (34.2-44.1); HEMOGLOBIN 10.2 g/dL (12.0-16.0); LYMPHOCYTES # (AUTO) 0.9 (1.0-3.2); LYMPHOCYTES % 9.3 % (18.0-39.1); MEAN CORPUSCULAR HEMOGLOBIN 31.7 pg (28-32); MEAN CORPUSCULAR HGB CONC 30.2 g/dL (31-35); MONOCYTES # (AUTO) 0.5 (0.2-0.8); MONOCYTES % 5.1 % (4.4-11.3); NEUTROPHILS # (AUTO) 8.3 (2.1-6.9); NEUTROPHILS % 85.2 % (38.7-80.0); PLATELET COUNT 253 x10e3/uL (140-360); RED BLOOD COUNT 3.22 x10e6/uL (3.6-5.1); RED CELL DISTRIBUTION WIDTH 15.1 % (11.7-14.4)
--- NOTE | 2020-02-04 05:59 | NUR ---
VANCO TROUGH ORDERED PRIOR TO NEXT DOSE PER PROTOCOL
[2020-02-04 06:08] LABS: INR 1.06; PROTHROMBIN TIME 14.5 seconds (11.9-14.5)
[2020-02-04 06:21] LABS: ALANINE AMINOTRANSFERASE 22 IU/L (0-55); ALBUMIN 2.9 g/dL (3.5-5.0); ALKALINE PHOSPHATASE 74 IU/L (40-150); ANION GAP 8.9 mmol/L (8-16); BLOOD UREA NITROGEN 34 mg/dL (7-26); BUN/CREATININE RATIO 42 (6-25); CALCIUM 8.9 mg/dL (8.4-10.2); CARBON DIOXIDE 34 mmol/L (22-29); CHLORIDE 107 mmol/L (98-107); CREATININE, SERUM 0.81 mg/dL (0.57-1.11); EST GLOMERULAR FILTRATION RATE > 60 ML/MIN (60-); GLUCOSE 148 mg/dL (74-118); POTASSIUM 4.9 mmol/L (3.5-5.1); SODIUM 145 mmol/L (136-145)
[2020-02-04] MEDS: IPRATROPIUM BROMIDE 0.02% 2.5 ML NEB NEB SCH ×3 (07:00→19:23)
[2020-02-04] MEDS ORDERED: SODIUM CHLORIDE 0.9% 250ML 250 ML ONE (07:37)
[2020-02-04] MEDS: METHYLPREDNISOLONE SOD SUCC 125 MG/2ML VIAL IV SCH (08:17)
[2020-02-04] MEDS: VALSARTAN 160 MG TAB PO SCH (09:00)
[2020-02-04] MEDS: METOPROLOL TARTRATE 50 MG TAB PO SCH ×2 (09:00→16:46)
[2020-02-04] MEDS: VANCOMYCIN 1GM/NS 250 ML 250 ML IV SCH (10:30)
[2020-02-04] MEDS: BALSAM PERU/CASTOR OIL 60 GM OINT...G. TP SCH (12:00)
[2020-02-04] MEDS ORDERED: SODIUM CHLORIDE 0.45% 1,000 ML IV ONE (15:30)
[2020-02-04] MEDS: AZITHROMYCIN 500MG/NS 250 ML 250 ML IV SCH (16:42)
[2020-02-04] MEDS: WARFARIN SOD 3 MG TAB PO SCH (16:46)
--- NOTE | 2020-02-04 18:19 | Progress Note ---
DATE: SUBJECTIVE: The patient is moved out of the intensive care unit yesterday. She is still weak. She is having difficulty swallowing and is being assessed by speech pathology. PHYSICAL EXAMINATION: VITAL SIGNS: The patient is afebrile. The blood pressure is 158/67 and saturation is 98% on 6 L. HEENT: Shows no facial swelling or erythema. CARDIAC: Reveals a regular rate and rhythm with normal S1 and S2. LUNGS: Auscultation of lungs reveals clear breath sounds bilaterally. There is no wheezing. ABDOMEN: Soft and nontender. There is no rebound or guarding. EXTREMITIES: Shows 1+ leg edema bilaterally. IMPRESSION: 1. Btaqf-hy-kqsdkbf respiratory failure. 2. Healthcare-associated pneumonia with severe sepsis, present on admission. 3. Chronic cor pulmonale. 4. Anemia, unspecified. 5. History of pulmonary emboli. PLAN: 1. Continue antibiotics. We will stop the vancomycin. The coagulase-negative Staph blood appears to be contaminant. 2. Gentle hydration while the patient is n.p.o. 3. Complete swallowing evaluation. 4. DNR. 5. Remove Smith as soon as possible. The patient states she is still too weak to go to the bathroom. Demarcus Rodriguez MD [facility]/[place] /[id number]
--- NOTE | 2020-02-04 19:20 | NUR ---
Report given to oncoming nurse of patient's status. Resting in bed. No s/s of acute distress noted. Side rails upx2, call light within reach, bed alarm on.
[2020-02-04] MEDS ORDERED: METHYLPREDNISOLONE SOD SUCC 125 MG/2ML VIAL IV SCH (21:00)
[2020-02-04] MEDS: METHYLPREDNISOLONE SOD SUCC 40 MG/ML VIAL 1ML IV SCH (21:55)
[2020-02-05] VITALS (10 sets, daily range): BP systolic 144–217; BP diastolic 65–91
[2020-02-05] MEDS: ALBUTEROL SULF 0.083% NEB SOLN 3 ML NEB NEB SCH ×6 (03:02→23:10)
[2020-02-05] MEDS: CEFEPIME 1GM/NS 0.9% 50 ML 50 ML IV SCH ×3 (04:43→21:40)
[2020-02-05 04:53] LABS: BASOPHILS % 0.1 % (0.0-1.0); HEMATOCRIT 34.9 % (34.2-44.1); HEMOGLOBIN 10.6 g/dL (12.0-16.0); LYMPHOCYTES # (AUTO) 0.8 (1.0-3.2); LYMPHOCYTES % 7.5 % (18.0-39.1); MEAN CORPUSCULAR HEMOGLOBIN 31.5 pg (28-32); MEAN CORPUSCULAR HGB CONC 30.4 g/dL (31-35); MEAN CORPUSCULAR VOLUME 103.9 fL (81-99); MONOCYTES # (AUTO) 0.7 (0.2-0.8); NEUTROPHILS # (AUTO) 8.5 (2.1-6.9); PLATELET COUNT 269 x10e3/uL (140-360); RED BLOOD COUNT 3.36 x10e6/uL (3.6-5.1); RED CELL DISTRIBUTION WIDTH 14.9 % (11.7-14.4)
[2020-02-05 05:03] LABS: INR 1.15; PROTHROMBIN TIME 15.5 seconds (11.9-14.5)
[2020-02-05 05:13] LABS: ALANINE AMINOTRANSFERASE 29 IU/L (0-55); ALBUMIN/GLOBULIN RATIO 0.9 (0.8-2.0); ALKALINE PHOSPHATASE 71 IU/L (40-150); ANION GAP 11.7 mmol/L (8-16); BLOOD UREA NITROGEN 34 mg/dL (7-26); BUN/CREATININE RATIO 44 (6-25); CALCIUM 8.9 mg/dL (8.4-10.2); CARBON DIOXIDE 32 mmol/L (22-29); CHLORIDE 105 mmol/L (98-107); CREATININE, SERUM 0.77 mg/dL (0.57-1.11); EST GLOMERULAR FILTRATION RATE > 60 ML/MIN (60-); GLUCOSE 143 mg/dL (74-118); POTASSIUM 4.7 mmol/L (3.5-5.1); SODIUM 144 mmol/L (136-145)
[2020-02-05] MEDS: IPRATROPIUM BROMIDE 0.02% 2.5 ML NEB NEB SCH ×3 (07:08→23:10)
--- NOTE | 2020-02-05 07:10 | NUR ---
RCD PT AT BED PT IS ALERT AND ORIENTED PT RESTING ON BED IV PATENT BY SALINE FLUSH HUNTER DRAINING BY GRAVITY PT ON O2 3 L BY NC BED LOW AND LOCKED CALL LIGHT IN REACH
[2020-02-05] MEDS: METOPROLOL TARTRATE 50 MG TAB PO SCH ×2 (07:15→16:45)
[2020-02-05] MEDS: VALSARTAN 160 MG TAB PO SCH (07:15)
[2020-02-05] MEDS: BALSAM PERU/CASTOR OIL 60 GM OINT...G. TP SCH (09:00)
[2020-02-05] MEDS: METHYLPREDNISOLONE SOD SUCC 40 MG/ML VIAL 1ML IV SCH (09:00)
--- NOTE | 2020-02-05 09:00 | NUR ---
FAMILY REFUSED ALL KINDS OF CARE AND MEDICATIONS EXCEPT MORPHINE AND LORAZEPAM Addendum: 02/05/20 at 1343 by Grazyna Kc RN WRONG PT
[2020-02-05] MEDS ORDERED: SODIUM CHLORIDE 0.9% 250ML 250 ML ONE (13:22)
--- NOTE | 2020-02-05 15:00 | NUR ---
NOTIFIED THE BP LEVEL TO DR BENITEZ WHEN HE CAME TO SEE THE PT AND REQUESTED PT MAY NEED SOME PRN FOR MEDS
--- NOTE | 2020-02-05 15:07 | Diagnostic Imaging Report ---
PROCEDURE: X-RAY MODIFIED BARIUM SWALLOW COMPARISON: None. INDICATION: Aspiration Radiation Details: Fluoroscopy time: 1.5 minutes Cumulative dose: 9.4 mGy DISCUSSION: Fluoroscopic examination was performed in conjunction with speech pathology during swallowing a variety of thin and thick liquid consistencies. Provided images demonstrate laryngeal penetration and aspiration. CONCLUSION: Modified barium swallow demonstrating laryngeal penetration and aspiration. Please refer to the speech pathology report for further details. Signed by: Fco Contreras MD on 02/05/2020 3:04 PM
--- NOTE | 2020-02-05 16:08 | NUR ---
DC HUNTER BY ORDER PT IN PUREEWICK NOW 300 ML URINE IN THE BAG
[2020-02-05] MEDS: AZITHROMYCIN 500MG/NS 250 ML 250 ML IV SCH (16:45)
[2020-02-05] MEDS: WARFARIN SOD 3 MG TAB PO SCH (16:45)
--- NOTE | 2020-02-05 18:23 | Progress Note ---
DATE: SUBJECTIVE: The patient reports increased fatigue. She is having increased dyspnea. She has no fevers. PHYSICAL EXAMINATION: VITAL SIGNS: The blood pressure is 180/78 and the pulse is 92. Respiratory rate is 18. HEENT: Shows no facial swelling or erythema. CARDIAC: Reveals regular rate and rhythm with normal S1, S2. LUNGS: Auscultation of lungs reveals prolonged expiratory phase bilaterally. There is no wheezing. ABDOMEN: Soft, nontender. There is no rebound or guarding. EXTREMITIES: Shows 2 to 3+ leg edema. LABORATORY DATA: BUN to creatinine ratio is 34 to 0.77. The other electrolytes within normal limits. White blood cell count is 9.9 and hemoglobin 10.6. The platelet count is 269. IMPRESSION: 1. Acute on chronic respiratory failure. 2. Chronic obstructive pulmonary disease with an acute exacerbation. 3. Chronic cor pulmonale. 4. Anemia. 5. History of pulmonary emboli. PLAN: 1. Increase Solu-Medrol to 60 q.12. 2. Discontinue Smith. 3. Complete antibiotics. 4. Discuss feeding with speech therapy. Demarcus Rodriguez MD [facility] /[id number]
--- NOTE | 2020-02-05 18:35 | NUR ---
Nutrition Follow Up Note RD Recommendation(s) for Physician: -Continue current diet as ordered due to elevated BG Plan of Care: RD following, monitoring for tolerance and adequacy. Nutrition reason for involvement: follow up RD Assessment 02/04: Follow up. Pt was extubated on 02/01. Pt was previously on a mechanical soft diet consistency but ST re-evaluated pt and recommend a regular textured diet. Pt reports she has been eating <50% of meals for the past 3 days, but it is recorded that the pt consumed 50-75% of meals today and 100% of dinner yesterday. Prior to admission, pt mentioned she has a good appetite. No weight loss reported and pt was unsure of her usual weight. No N/V. Will continue to monitor. 01/31: 74 YOF admitted for COPD with PMH listed below. The pt is intubated and sedated on propofol, no pressors. ordered TF Glucerna 1.2 at 20 ml/hr with 150 ml water flushed every 4 hours (576 kcal, 29 gram protein). Na is 147, pt will be getting an extra 900 ml of free water. No family was in the room to ask weight/appetite hx. Provided TF recs above. Will continue to monitor. Principal Problems/Diagnoses: COPD PMH: 1. History of 2 prior pulmonary emboli. 2. Severe COPD. 3. Degenerative arthritis. GI: Abd: soft, non-tender, large, round, LBM: not recorded Skin: deep tissue injury on right buttock Labs: 02/04: Na 144, Glu 142 01/31: Na 147, CO2 32, Gluc 154 Meds: valsartan, metroprolol, warfarin, azithromycin, methylprednisolone Ht: 65 in Wt: 257 lbs (02/04) 244 lbs (01/31) BMI: 42.8 kg/m^2 IBW: 125 lbs Malnutrition Evaluation (02/04) The patient does not meet criteria for a specified degree of malnutrition at this time. Will re-evaluate at follow-up as appropriate. Energy intake: Pt reports eating <50% of meals for the past 3 days, however, it is recorded that pt consumed 50-75% of meals today and 100% of dinner yesterday. Weight loss: No weight loss reported Fat loss: none Muscle loss: none Nutrition Prescription (Diet Order): 1800 ADA Estimated Nutritional Needs: Calories: 7894-2613 kcal/day (22-25 kcal/kg/day) Weight used : IBW (56.8 kg) Protein :85-114 protein/day (1.5-2 gram/kg/day ) Weight used: IBW Diet Adequacy: Unable to accurately assess at this time Diet Education Needs Assessment: Pt was not interested in diet education materials Nutrition Care Level: low Nutrition Diagnosis: Inadequate energy intake related to medical condition as evidenced by pts need for TF and intubation. (RESOLVED) Goal: Patient will meet 75-100% of estimated needs by follow up Progress: Unable to accurately assess at this time Interventions: -carbohydrate- modified diet Monitoring/Evaluation: -Total energy intake, Total protein intake, Modified diet Signed: Jaleesa Zacarias RD, LD
--- NOTE | 2020-02-05 19:07 | NUR ---
PT RESTING ON BED BED SIDE REPORT GIVEN TO ONCOMING NURSE
--- NOTE | 2020-02-05 19:25 | NUR ---
received report from day nurse. patient is resting comfortably in the bed. bed is in the lowest position and call light is within reach. will continue to monitor patient.
[2020-02-05] MEDS ORDERED: METHYLPREDNISOLONE SOD SUCC 40 MG/ML VIAL 1ML IV SCH (21:00)
[2020-02-05] MEDS: METHYLPREDNISOLONE SOD SUCC 125 MG/2ML VIAL IV SCH (21:40)
[2020-02-05] MEDS: ZOLPIDEM TARTRATE 5 MG TAB PO PRN (21:43)
[2020-02-05] MEDS: CLONIDINE HCL 0.2 MG TAB PO PRN (21:43)
[2020-02-06] VITALS (7 sets, daily range): BP systolic 132–167; BP diastolic 60–77
[2020-02-06] MEDS: ALBUTEROL SULF 0.083% NEB SOLN 3 ML NEB NEB SCH ×6 (03:20→23:00)
[2020-02-06] MEDS: CEFEPIME 1GM/NS 0.9% 50 ML 50 ML IV SCH ×3 (05:09→22:14)
[2020-02-06] MEDS: IPRATROPIUM BROMIDE 0.02% 2.5 ML NEB NEB SCH ×3 (06:35→23:00)
--- NOTE | 2020-02-06 07:17 | NUR ---
report given to day nurse. patient is resting comfortably in bed. bed is in lowest position and call light is within reach.
[2020-02-06] MEDS: VALSARTAN 160 MG TAB PO SCH (09:59)
[2020-02-06] MEDS: METOPROLOL TARTRATE 50 MG TAB PO SCH ×2 (09:59→18:06)
[2020-02-06] MEDS: METHYLPREDNISOLONE SOD SUCC 125 MG/2ML VIAL IV SCH ×2 (09:59→22:14)
--- NOTE | 2020-02-06 16:37 | Progress Note ---
DATE: SUBJECTIVE: The patient has less dyspnea than yesterday. She still is very fatigued. She has difficulty standing and walking without the assistance of physical therapy. PHYSICAL EXAMINATION: VITAL SIGNS: The patient is afebrile. The vital signs are stable. HEENT: Shows no facial swelling or erythema. CARDIAC: Reveals a regular rate and rhythm with normal S1 and S2. There are no murmurs or rubs heard. LUNGS: Auscultation of lungs reveals prolonged expiratory phase bilaterally. ABDOMEN: Soft, nontender. There is no rebound or guarding. EXTREMITIES: Show no leg edema or calf tenderness. IMPRESSION: 1. Acute on chronic respiratory failure. 2. Chronic obstructive pulmonary disease with acute exacerbation. 3. Anemia. 4. History of pulmonary emboli. PLAN: 1. Continue Solu-Medrol. 2. Continue bronchodilators. 3. Physical therapy. 4. Discussed disposition with director of casework services. MD CALEB Bazzi/[place] /[id number]
[2020-02-06] MEDS: AZITHROMYCIN 500MG/NS 250 ML 250 ML IV SCH (18:07)
[2020-02-06] MEDS: BALSAM PERU/CASTOR OIL 60 GM OINT...G. TP SCH (18:07)
[2020-02-06] MEDS: WARFARIN SOD 3 MG TAB PO SCH (18:07)
[2020-02-06] MEDS: ZOLPIDEM TARTRATE 5 MG TAB PO PRN (22:14)
[2020-02-07] VITALS (7 sets, daily range): BP systolic 119–188; BP diastolic 52–78
[2020-02-07] MEDS: ALBUTEROL SULF 0.083% NEB SOLN 3 ML NEB NEB SCH ×6 (03:00→23:10)
[2020-02-07] MEDS: CEFEPIME 1GM/NS 0.9% 50 ML 50 ML IV SCH ×3 (03:35→20:26)
--- NOTE | 2020-02-07 06:58 | NUR ---
REPORT GIVEN TO DAY NURSE. PATIENT IS RESTING COMFORTABLY IN BED. BED IS IN LOWEST POSITION AND CALL LIGHT IS WITHIN REACH.
[2020-02-07] MEDS: IPRATROPIUM BROMIDE 0.02% 2.5 ML NEB NEB SCH ×3 (07:00→19:25)
[2020-02-07] MEDS: VALSARTAN 160 MG TAB PO SCH (09:08)
[2020-02-07] MEDS: METOPROLOL TARTRATE 50 MG TAB PO SCH ×2 (09:08→17:32)
[2020-02-07] MEDS: METHYLPREDNISOLONE SOD SUCC 125 MG/2ML VIAL IV SCH ×2 (09:08→20:26)
[2020-02-07] MEDS: BALSAM PERU/CASTOR OIL 60 GM OINT...G. TP SCH (09:08)
--- NOTE | 2020-02-07 12:35 | Progress Note ---
DATE: SUBJECTIVE: The patient is more comfortable today. She continues to require 6 L of oxygen. She has no fever. PHYSICAL EXAMINATION: VITAL SIGNS: The blood pressure is 126/52 and the pulse is 55. The patient is afebrile. The saturation is 97% on 6 L. HEENT: Shows no facial swelling or erythema. CARDIAC: Reveals a regular rate and rhythm with normal S1 and S2. LUNGS: Auscultation of lungs reveals prolonged expiratory phase bilaterally. There are some rhonchi. ABDOMEN: Soft and nontender. There is no rebound or guarding. EXTREMITIES: Shows no leg edema or calf tenderness. There is no cyanosis or clubbing. SKIN: Shows no rashes. NEUROLOGICAL: Shows no focal abnormalities. LABORATORY DATA: Modified barium swallow shows some laryngeal penetration, possible aspiration. IMPRESSION: 1. Tktmu-bl-ajkxanp respiratory failure. 2. Chronic obstructive pulmonary disease with acute exacerbation. 3. Anemia. 4. History of pulmonary emboli. PLAN: 1. Complete antibiotics. 2. Continue Solu-Medrol and bronchodilators. 3. Aspiration precautions. 4. Possible transfer to long-term. Demarcus Rodriguez MD [facility] /[id number]
[2020-02-07] MEDS: AZITHROMYCIN 500MG/NS 250 ML 250 ML IV SCH (17:32)
--- NOTE | 2020-02-07 19:20 | NUR ---
RECEIVED REPORT FROM DAY NURSE. PATIENT IS RESTING COMFORTABLY IN THE BED. BED IS IN THE LOWEST POSITION AND CALL DACOSTA IS WITHIN REACH. WILL CONTINUE TO MONITOR PATIENT.
[2020-02-07] MEDS: ZOLPIDEM TARTRATE 5 MG TAB PO PRN (23:05)
[2020-02-08] VITALS (8 sets, daily range): BP systolic 134–175; BP diastolic 60–74
[2020-02-08] MEDS: ALBUTEROL SULF 0.083% NEB SOLN 3 ML NEB NEB SCH ×6 (03:05→23:00)
[2020-02-08] MEDS: CEFEPIME 1GM/NS 0.9% 50 ML 50 ML IV SCH ×3 (04:18→20:20)
[2020-02-08 06:29] LABS: BASOPHILS % 0.1 % (0.0-1.0); HEMATOCRIT 36.9 % (34.2-44.1); HEMOGLOBIN 11.3 g/dL (12.0-16.0); LYMPHOCYTES # (AUTO) 0.8 (1.0-3.2); LYMPHOCYTES % 6.4 % (18.0-39.1); MEAN CORPUSCULAR HEMOGLOBIN 31.9 pg (28-32); MEAN CORPUSCULAR HGB CONC 30.6 g/dL (31-35); MEAN CORPUSCULAR VOLUME 104.2 fL (81-99); MONOCYTES # (AUTO) 0.4 (0.2-0.8); MONOCYTES % 3.7 % (4.4-11.3); NEUTROPHILS # (AUTO) 10.5 (2.1-6.9); NEUTROPHILS % 89.3 % (38.7-80.0); PLATELET COUNT 209 x10e3/uL (140-360); RED BLOOD COUNT 3.54 x10e6/uL (3.6-5.1); RED CELL DISTRIBUTION WIDTH 14.5 % (11.7-14.4)
[2020-02-08 06:37] LABS: INR 1.19; PROTHROMBIN TIME 15.9 seconds (11.9-14.5)
[2020-02-08 06:45] LABS: ALANINE AMINOTRANSFERASE 23 IU/L (0-55); ALBUMIN 2.9 g/dL (3.5-5.0); ALKALINE PHOSPHATASE 67 IU/L (40-150); BLOOD UREA NITROGEN 29 mg/dL (7-26); BUN/CREATININE RATIO 43 (6-25); CALCIUM 8.7 mg/dL (8.4-10.2); CARBON DIOXIDE 35 mmol/L (22-29); CHLORIDE 103 mmol/L (98-107); CREATININE, SERUM 0.68 mg/dL (0.57-1.11); EST GLOMERULAR FILTRATION RATE > 60 ML/MIN (60-); GLUCOSE 165 mg/dL (74-118); SODIUM 141 mmol/L (136-145)
--- NOTE | 2020-02-08 07:00 | NUR ---
RCD PT AT BED PT IS ALERT AND ORIENTED PT RESTING ON BED IV PATENT BY SALINE FLUSH PT ON O2 6 L BY NC BED LOW AND LOCKED CALL LIGHT IN REACH
--- NOTE | 2020-02-08 07:06 | NUR ---
report given to day nurse. patient is resting comfortably in bed. bed is in lowest position and call light is within reach.
[2020-02-08] MEDS: IPRATROPIUM BROMIDE 0.02% 2.5 ML NEB NEB SCH ×3 (07:25→19:20)
[2020-02-08] MEDS: BALSAM PERU/CASTOR OIL 60 GM OINT...G. TP SCH (09:00)
[2020-02-08] MEDS: METOPROLOL TARTRATE 50 MG TAB PO SCH ×2 (09:00→17:00)
[2020-02-08] MEDS: VALSARTAN 160 MG TAB PO SCH (09:00)
[2020-02-08] MEDS: METHYLPREDNISOLONE SOD SUCC 125 MG/2ML VIAL IV SCH (09:00)
--- NOTE | 2020-02-08 15:26 | Progress Note ---
DATE: SUBJECTIVE: The patient has some dyspnea on exertion. She is not complaining of fever or cough. PHYSICAL EXAMINATION: VITAL SIGNS: Stable. HEENT: Shows no facial swelling or erythema. CARDIAC: Reveals a regular rate and rhythm with normal S1 and S2. LUNGS: Auscultation of lungs reveals clear breath sounds bilaterally. There is no wheezing. ABDOMEN: Soft, nontender. There is no rebound or guarding. EXTREMITIES: Show no leg edema or calf tenderness. IMPRESSION: 1. Acute on chronic respiratory failure. 2. Chronic obstructive pulmonary disease. 3. Anemia. 4. History of pulmonary emboli. PLAN: 1. Taper Solu-Medrol as tolerated. 2. Physical therapy. 3. Continue bronchodilators. 4. Possible snf facility. Demarcus Rodriguez MD [facility] /[id number]
[2020-02-08] MEDS: AZITHROMYCIN 500MG/NS 250 ML 250 ML IV SCH (17:00)
--- NOTE | 2020-02-08 19:01 | NUR ---
PT RESTING ON BED BED SIDE REPORT GIVEN TO ONCOMING NURSE
[2020-02-08] MEDS: METHYLPREDNISOLONE SOD SUCC 40 MG/ML VIAL 1ML IV SCH (20:20)
--- NOTE | 2020-02-08 20:20 | NUR ---
PATIENT IS RESTING IN BED AOX3, CURRENTLY ON BREATHING TREATMENT. NASAL CANNULA IS INTACT AND RUNNING AT 6 LITERS AND PATIENT VOICES NO PAIN AT THIS TIME. BILATERAL EDEMA NOTED ON LOWER EXTREMITIES AND PATIENT VOICES NO SIGNS OF RESPIRATORY DISTRESS. BED IS IN LOWEST POSITION, BOTH SIDE RAILS ARE UP, CALL LIGHT IS WITHIN REACH, WILL CONTINUE TO MONITOR.
[2020-02-08] MEDS: ZOLPIDEM TARTRATE 5 MG TAB PO PRN (22:49)
[2020-02-09] VITALS: BP 146/64
[2020-02-09] MEDS: ALBUTEROL SULF 0.083% NEB SOLN 3 ML NEB NEB SCH ×4 (03:00→15:00)
[2020-02-09] MEDS: CEFEPIME 1GM/NS 0.9% 50 ML 50 ML IV SCH ×2 (04:19→12:06)
[2020-02-09] MEDS ORDERED: TRAMADOL HCL 50 MG TAB PO PRN (04:30)
[2020-02-09 05:57] VITALS: BP 142/75
[2020-02-09] MEDS: IPRATROPIUM BROMIDE 0.02% 2.5 ML NEB NEB SCH ×2 (07:00→15:00)
--- NOTE | 2020-02-09 07:54 | NUR ---
Received patient, alert and responsive, on continuous oxygen 6L, COPD, dependent on O2, no distress, call light within reach, will monitor.
[2020-02-09 08:00] VITALS: BP 136/62
[2020-02-09] MEDS: METHYLPREDNISOLONE SOD SUCC 40 MG/ML VIAL 1ML IV SCH (08:27)
[2020-02-09] MEDS: VALSARTAN 160 MG TAB PO SCH (08:27)
[2020-02-09] MEDS: METOPROLOL TARTRATE 50 MG TAB PO SCH ×2 (08:28→16:11)
[2020-02-09 09:17] VITALS: BP 136/62
--- NOTE | 2020-02-09 10:50 | NUR ---
SPOKE WITH FAMILY ABOUT CHOICE FOR FACILITY SIGNED CHOICE AND FILED IN CHART AND EDUCATED ABOUT IMM. FAXED CLINICALS TO FACILITY.
[2020-02-09 11:42] VITALS: BP 144/64
--- NOTE | 2020-02-09 14:21 | NUR ---
Rounds by attending and orders to d/c sputum culture, patient still waiting for insurance approval to SNF
[2020-02-09] MEDS: BALSAM PERU/CASTOR OIL 60 GM OINT...G. TP SCH (14:41)
--- NOTE | 2020-02-09 14:56 | Progress Note ---
DATE: SUBJECTIVE: The patient has no new complaints. PHYSICAL EXAMINATION: VITAL SIGNS: The patient is afebrile. The vital signs are stable. HEENT: Shows no facial swelling or erythema. CARDIAC: Reveals a regular rate and rhythm with normal S1 and S2. LUNGS: Auscultation of lungs reveals clear breath sounds bilaterally. There is no wheezing. ABDOMEN: Soft and nontender. There is no rebound or guarding. EXTREMITIES: Shows no leg edema or calf tenderness. There is no cyanosis or clubbing. SKIN: Shows no rashes. IMPRESSION: 1. Lrlbu-pd-timroxz respiratory failure. 2. Chronic obstructive pulmonary disease. 3. History of pulmonary emboli. 4. Anemia. PLAN: 1. Continue physical therapy. 2. Taper steroids. 3. Continue bronchodilators. 4. Transfer to senior care. Demarcus Rodriguez MD [facility] /[id number]
[2020-02-09 16:00] VITALS: BP 182/73
[2020-02-09] MEDS: CLONIDINE HCL 0.2 MG TAB PO PRN (16:12)
--- NOTE | 2020-02-09 16:20 | NUR ---
HALF-WAY FACILITY DISCHARGE INFORMATION PATIENT HAS BEEN ACCEPTED TO: NAME: [facility] ADDRESS:[id number] ACCEPTING PROGRAMMING DEVELOPMENT PROJECT MANAGER:ENRIQUE PIERCE MD:JANELLE ROOM:[id number] NURSE CALL REPORT TO: [phone] IMM SIGNED AND OBTAINED (if applicable): IMM THE FOLLOWING DOCUMENTS MUST ACCOMPANY PATIENT FOR TRANSFER: COPIED CHART:PACKET
[2020-02-09] MEDS ORDERED: PNEUMOCOCCAL VACCINE POLYVALENT 23 MCG/0.5 ML VIAL IM SCH (16:45)
[2020-02-09] MEDS ORDERED: WARFARIN SOD 3 MG TAB PO SCH (17:00)
--- NOTE | 2020-02-09 17:27 | NUR ---
Call to joss Bobo to discharge patient, d/c Solumedrol IV and start prednisone PO, administered Flu vaccine and PNA vaccine.
[2020-02-09] MEDS ORDERED: INFLUENZA VIRUS VAC SPLIT INJ 0.5 ML SYR IM SCH (17:30)
[2020-02-09] MEDS ORDERED: PREDNISONE 20 MG TAB PO SCH (21:00)
== END 2020-02-09 18:47 | DRG 871 ==
LOC: ER 06:47 → ERHOLD 10:14 → MED/SURG3 17:00 → ICU 21:53 → MED/SURG2 02-03 20:52
PROVIDERS: ADMIT Internal Medicine Critical Care Medicine; ATTEND Internal Medicine Critical Care Medicine
PROC: 5A1945Z Respiratory Ventilation, 24-96 Consecutive Hours (ICD-10-PCS; principal; 2020-01-31)
PROC: 0BH17EZ Insertion of Endotracheal Airway into Trachea, Via Natural or Artificial Opening (ICD-10-PCS; 2020-01-31)
PROC: 02HV33Z Insertion of Infusion Device into Superior Vena Cava, Percutaneous Approach (ICD-10-PCS; 2020-01-31)
DX: A41.9 Sepsis, unspecified organism (principal); J96.20 Acute and chronic respiratory failure, unspecified whether with hypoxia or hypercapnia; J18.9 Pneumonia, unspecified organism; J44.1 Chronic obstructive pulmonary disease with (acute) exacerbation; E87.0 Hyperosmolality and hypernatremia; J44.0 Chronic obstructive pulmonary disease with (acute) lower respiratory infection; Z68.41 Body mass index [BMI] 40.0-44.9, adult; Z66 Do not resuscitate; I27.81 Cor pulmonale (chronic); I50.810 Right heart failure, unspecified; Z99.81 Dependence on supplemental oxygen; D64.9 Anemia, unspecified; R65.20 Severe sepsis without septic shock; Y95 Nosocomial condition; I11.0 Hypertensive heart disease with heart failure; E66.01 Morbid (severe) obesity due to excess calories
CPT/HCPCS: 31500; 36415; 36569; 36600; 71045; 74018; 74230; 80053; 80202; 82550; 82553; 82805; 82948; 83605; 83880; 84484; 85025; 85610; 87040; 87070; 87071; 87205; 87400; 90732; 93005; 93306; 94002; 94003; 94640; 94660; 97139; 99284; J0330; J0456; J0692; J1650; J1940; J2060; J2920; J2930; J3370; J7030; J7050